=== PATIENT | female | born 1950 | race Caucasian/White ===

== ENCOUNTER 2019-08-13 21:21 | Inpatient (IN) | payer MEDICARE ==
--- NOTE | 2019-08-13 21:44 | ED ---
SOB HPI - General Chief Complaint: Shortness of Breath Stated Complaint: pneumonia Time Seen by Provider: 08/13/19 21:23 Source: patient, EMS, RN notes reviewed, old records reviewed Mode of arrival: EMS Limitations: no limitations - History of Present Illness Initial Comments: This is a 69 female to the ED c/o cough SOB and accepted in transfer for contreras luation regarding cough or congestion shortness of breath. Patient is found to have pneumonia is accepted in transfer. Patient states she feels improved is hungry and thirsty currently. No chest pain. No other complaints no neurological complaints MD Complaint: shortness of breath, cough Severity: mild Severity scale (1-10): 3 Quality: dull Consistency: constant Improves With: rest Worsens With: exertion Known History Of: COPD, congestive heart failure Context: recent URI Associated Symptoms: fever, cough Treatments Prior to Arrival: none - Related Data Home Medications Medication Instructions Recorded Confirmed Aspirin 81 mg PO DAILY 04/13/15 04/14/15 Atenolol [Tenormin] 25 mg PO BID 04/13/15 04/14/15 glipiZIDE [Glucotrol] 10 mg PO AC-BID 04/13/15 04/14/15 FLUoxetine HCL [PROzac] 20 mg PO DAILY 04/14/15 04/14/15 metFORMIN HCL 1,000 mg PO BID 04/14/15 04/14/15 Previous Rx's Medication Instructions Recorded Cefuroxime Axetil [Ceftin] 250 mg PO BID #14 tablet 04/15/15 Allergies Allergy/AdvReac Type Severity Reaction Status Date / Time Sulfa (Sulfonamide Allergy Rash/Hives Verified 04/14/15 10:09 Antibiotics) Review of Systems ROS Statement: Those systems with pertinent positive or pertinent negative responses have been documented in the HPI. ROS Other: All systems not noted in ROS Statement are negative. Past Medical History Past Medical History: Atrial Fibrillation, CVA/TIA, Hyperlipidemia, Hypertension, Pneumonia, Renal Disease Additional Past Medical History / Comment(s): vaginal dyslagia,carotid artery blockage History of Any Multi-Drug Resistant Organisms: None Reported Past Surgical History: Section, Cholecystectomy, Tonsillectomy, Uterine Ablation Additional Past Surgical History / Comment(s): carotid surgery, oopharectomy Past Anesthesia/Blood Transfusion Reactions: No Reported Reaction Past Psychological History: Anxiety Smoking Status: Former smoker Past Alcohol Use History: None Reported Past Drug Use History: None Reported - Past Family History Father History Unknown: Yes General Exam Limitations: no limitations General appearance: alert, in no apparent distress Head exam: Present: atraumatic, normocephalic, normal inspection Eye exam: Present: normal appearance, PERRL, EOMI. Absent: scleral icterus, conjunctival injection, periorbital swelling ENT exam: Present: normal exam, mucous membranes dry, other (Hoarse voice) Neck exam: Present: normal inspection. Absent: tenderness, meningismus, lymphadenopathy Respiratory exam: Present: wheezes, decreased breath sounds, prolonged expiratory. Absent: respiratory distress, rales, rhonchi, stridor Cardiovascular Exam: Present: regular rate, normal rhythm, normal heart sounds. Absent: systolic murmur, diastolic murmur, rubs, gallop, clicks GI/Abdominal exam: Present: soft, normal bowel sounds. Absent: distended, tenderness, guarding, rebound, rigid Extremities exam: Present: normal inspection, full ROM, normal capillary refill. Absent: tenderness, pedal edema, joint swelling, calf tenderness Back exam: Present: normal inspection Neurological exam: Present: alert, oriented X3, CN II-XII intact Psychiatric exam: Present: normal affect, normal mood Skin exam: Present: warm, dry, intact, normal color. Absent: rash Course Vital Signs 08/13/19 21:31 Temperature 98.6 F Pulse Rate 114 H Respiratory 22 Rate Blood Pressure 138/84 O2 Sat by Pulse 99 Oximetry - Reevaluation(s) Reevaluation #1: 08/13/19 22:22 Medical records including imaging is reviewed Reevaluation #2: 08/13/19 22:22 Patient feeling improved here in the ER asking the nursing - Consultations Consultation #1: Spoke with sound were okay for admission Medical Decision Making - Medical Decision Making 69-year-old female DF for evaluation patient presents today for evaluation of shortness with cough congestion positive for pneumonia. Patient will be admitted for IV antibiotics and breathing treatments Disposition Clinical Impression: Community acquired pneumonia, Atrial fibrillation with RVR Disposition: ADMITTED IP TO THIS HOSP Condition: Good Is patient prescribed a controlled substance at d/c from ED?: No Referrals: Sekou Apoadca DO [Primary Care Provider] - 1-2 days
[2019-08-13] MEDS ORDERED: PNEUMONIA PROTOCOL UTILIZED 1 EACH MISC PO PRN (22:10)
[2019-08-13] MEDS ORDERED: HEPARIN SODIUM,PORCINE 5,000 UNIT/ML 1 ML VIAL IV PRN (22:10)
[2019-08-13] MEDS ORDERED: HEPARIN SOD,PORK IN 0.45% NACL 25,000 UNIT in 0.45% NACL 1 250ML.BAG IV SCH (22:15)
[2019-08-13] MEDS ORDERED: DEXAMETHASONE SOD PHOSPHATE 10 MG/ML 1 ML VIAL IV STA (22:18)
[2019-08-13] MEDS ORDERED: IPRATROPIUM-ALBUTEROL 3 ML NEB INHALATION STA (22:18)
[2019-08-13] MEDS: SODIUM CHLORIDE 0.9% 1,000 ML IV SCH (22:47)
[2019-08-14] MEDS ORDERED: IPRATROPIUM-ALBUTEROL 3 ML NEB INHALATION SCH
[2019-08-14] MEDS ORDERED: methylPREDNISolone SOD SUCCI 125 MG/2 ML VIAL IV SCH
[2019-08-14 00:38] LABS: Glucose,Whole Blood 394 mg/dL (75-99)
--- NOTE | 2019-08-14 00:51 | P.HPIM ---
History of Present Illness H&P Date: 08/13/19 Patient is a 69-year-old female with a PMH of type II DM, hx of CVA/TIA (s/p carotid endarterectomy x 1 on the L and x 2 on the R), possible history of atrial fibrillation (not on AC, patient unaware), HTN, and HLD presented to [facility] earlier today for persistent nonproductive cough, sore throat, and shortness of breath. The patient reports that for the past 2 months, she has had persistent URI like symptoms for which she was seen by her PMD multiple times and had completed a previous course of antibiotics orally. She reports that she initially had seen some improvement but then roughly a week ago, her symptoms returned with sinus congestion and non-productive cough. She then developed a sore throat a few days ago which gradually worsened and she then lost her voice. The patient reports history of smoking in the past but that she quit several years ago. She endorsed mild pleuritic chest pain with excessive coughing. Denied lower extremity swelling or pain. Denied fevers, chills, nausea, vomiting, abdominal pain, or diarrhea. The patient had undergone a CT soft tissue neck at [facility] which revealed a right upper lobe pneumonia along with a complete occlusion of the right internal carotid artery. The patient however denied weakness, numbness, tingling, visual disturbances, facial droop, slurred speech, or gait impairement. She underwent an extensive evaluation with an EKG showing normal sinus rhythm at 84 bpm, laboratory evaluation showing influenza negative, rapid strep negative, magnesium 0.7, potassium 3.4, sodium 141, BUN 20, creatinine 1.04, WBC count 7.7, hemoglobin 12.6, and platelets of 399. The patient was transferred to [facility] for further management. Review of Systems Pertinent positives and negatives as discussed in HPI, a complete review of systems was performed and all other systems are negative. Past Medical History Past Medical History: Atrial Fibrillation, CVA/TIA, Hyperlipidemia, Hypertension, Pneumonia, Renal Disease Additional Past Medical History / Comment(s): vaginal dyslagia,carotid artery blockage History of Any Multi-Drug Resistant Organisms: None Reported Past Surgical History: Section, Cholecystectomy, Tonsillectomy, Uterine Ablation Additional Past Surgical History / Comment(s): carotid surgery, oopharectomy Past Anesthesia/Blood Transfusion Reactions: No Reported Reaction Past Psychological History: Anxiety Smoking Status: Former smoker Past Alcohol Use History: None Reported Past Drug Use History: None Reported - Past Family History Father History Unknown: Yes Medications and Allergies Home Medications Medication Instructions Recorded Confirmed Type Aspirin 81 mg PO DAILY 04/13/15 08/13/19 History Atenolol [Tenormin] 25 mg PO BID 04/13/15 08/13/19 History metFORMIN HCL 1,000 mg PO BID 04/14/15 08/13/19 History Insulin (Unknown Dose) 10 - 15 units SQ AC-TID 08/13/19 08/13/19 History Insulin Detemir (Levemir) [Levemir] 30 - 35 unit SQ BID PRN 08/13/19 08/13/19 History Allergies Allergy/AdvReac Type Severity Reaction Status Date / Time Sulfa (Sulfonamide Allergy Rash/Hives Verified 04/14/15 10:09 Antibiotics) Physical Exam Vitals: Vital Signs Temp Pulse Resp BP Pulse Ox 08/13/19 22:55 107 H 24 162/72 96 08/13/19 22:40 111 H 08/13/19 22:27 112 H 08/13/19 21:31 98.6 F 114 H 22 138/84 99 Intake and Output 08/13/19 08/13/19 08/14/19 14:59 22:59 06:59 Other: Weight 72.575 kg General: ill appearing, in mild distress, appears at stated age, overweight Derm: no unusual rashes/lesions no unusual ecchymoses, warm, dry Head: atraumatic, normocephalic, symmetric Eyes: EOMI, no lid lag, anicteric sclera, pupils equal round reactive to light ENT: Nose and ears atraumatic, no thrush, no pharyngeal erythema, no tonsillar exudates, nasal congestion with clear discharge noted Neck: No thyromegaly, no cervical lymphadenopathy, trachea midline, supple Mouth: no lip lesion, mucus membranes moist Cardiovascular: S1S2 reg, tachycardic, no murmur, positive posterior tibial pulse bilateral, no edema, capillary refill less than 2 seconds Lungs: CTA bilateral, no rhonchi, no rales , no accessory muscle use Abdominal: soft, nontender to palpation, no guarding, no appreciable organomegaly, normal bowel sounds Ext: no gross muscle atrophy, muscle strength 5 out of 5 in all 4 extremities grossly, no contractures, Neuro: CN II-XI grossly intact, light touch intact all 4 extremities, finger to nose within normal limits Psych: Alert, oriented, appropriate affect Assessment and Plan Plan: Sepsis secondary to community acquired pneumonia -C/w Azithromycin and Ceftriaxone -Check Lactate level -C/w Duonebs prn. Hold Solu-medrol for now -IVFs -F/u blood cultures R Carotid artery thrombosis with complete occlusion -Patient with no clinical signs or symptoms of CVA -C/w Heparin infusion for now -Reports has undergone multiple endarterectomies in the past -Vascular surgery consult -Neurochecks q4h Enlarged LN at angle of left mandible on CT scan -Suspicious for malignancy with patient's history of smoking -Surgery consult for likely excisional biopsy Hypomagnasemia -Mg 0.7 at [facility] -Given 1 g with repeat ordered -Unclear if patient was supplemented at [facility] Type 2 DM -JAZMÍN with FS -Levemir 10 U qhs Questionable history of Afib -Patient reports never being on a blood thinner in the past -Contact PMD in am to obtain more information -No documented EKG with Afib -C/w ASA home med DVT prophylaxis -Heparin infusion The patient is admitted with an anticipated greater than 2 midnight stay for evaluation of sepsis from PNA CODE STATUS: Full Code Discussed with: Patient Anticipated discharge date: 3-[address]: Home A total of 50 minutes was spent on the care of this complex patient more than 50% of the time was spent in counseling and care coordination.
[2019-08-14] MEDS ORDERED: INSULIN DETEMIR (LEVEMIR) 100 UNIT/ML SYR SQ SCH ×2 (01:00→21:00)
[2019-08-14] MEDS ORDERED: MAGNESIUM SULFATE-D5W PMX 1 GM in DEXTROSE/WATER 1 100ML.BAG IVPB ONE (01:30)
[2019-08-14 01:47] LABS: Partial Thromboplastin Time 46.4 sec (22.0-30.0); Prothrombin Time 10.4 sec (9.0-12.0)
[2019-08-14] MEDS: INSULIN ASPART (NovoLOG) 100 UNIT/ML VIAL SQ SCH ×4 (01:51→17:01)
[2019-08-14] MEDS: MAGNESIUM SULFATE-D5W PMX 1 GM in DEXTROSE/WATER 1 100ML.BAG IVPB ONE ×2 (02:13→02:15)
[2019-08-14 05:46] LABS: Basophils % (A) 0 %; Eosinophils % (A) 1 %; HCT 32.5 % (34.0-46.0); HGB 10.1 gm/dL (11.4-16.0); Hypochromasia Slight; Lymphocytes # (A) 0.7 k/uL (1.0-4.8); Lymphocytes % (A) 11 %; MCH 30.3 pg (25.0-35.0); MCV 97.9 fL (80.0-100.0); Mean Platelet Volume 7.3; Monocytes # (A) 0.1 k/uL (0-1.0); Monocytes % (A) 2 %; Neutrophils # (A) 5.4 k/uL (1.3-7.7); Neutrophils % (A) 87 %; Platelet Count 361 k/uL (150-450); RBC 3.32 m/uL (3.80-5.40); RDW 14.4 % (11.5-15.5); WBC 6.2 k/uL (3.8-10.6)
[2019-08-14 07:03] LABS: Glucose,Whole Blood 383 mg/dL (75-99)
[2019-08-14] MEDS ORDERED: SODIUM CHLORIDE 0.9% 1,000 ML IV ONE ×2 (07:04→11:00)
[2019-08-14] MEDS: IPRATROPIUM-ALBUTEROL 3 ML NEB INHALATION PRN ×3 (07:05→15:32)
[2019-08-14] MEDS: SODIUM CHLORIDE 0.9% 1,000 ML IV SCH ×2 (08:05→17:06)
[2019-08-14] MEDS: ATENOLOL 25 MG TAB PO SCH ×2 (08:07→22:00)
[2019-08-14] MEDS: ASPIRIN 81 MG PO SCH (08:07)
[2019-08-14] MEDS: AZITHROMYCIN 500 MG in SODIUM CHLORIDE 0.9% 250 ML IVPB SCH (08:13)
[2019-08-14 08:22] LABS: Albumin 3.4 g/dL (3.5-5.0); Potassium 4.8 mmol/L (3.5-5.1); Total Bilirubin 0.3 mg/dL (0.2-1.3); Total Protein 6.5 g/dL (6.3-8.2)
--- NOTE | 2019-08-14 08:53 | XR ---
EXAMINATION TYPE: XR chest 2V DATE OF EXAM: 08/14/2019 HISTORY: pneumonia. REFERENCE: Previous study dated 08/13/2019. FINDINGS: There is a continuing opacity in the midportion of the right lung. Left lung is clear. Hear t size is upper limits of normal. There is mild vascular congestion and subtle interstitial change. IMPRESSION: 1. CONTINUING OPACITY IN THE RIGHT MIDLUNG COMPATIBLE WITH PNEUMONIA. 2. WORSENING CHANGES OF CONGESTIVE HEART FAILURE.
[2019-08-14] MEDS ORDERED: HEPARIN SODIUM,PORCINE 5,000 UNIT/ML 1 ML VIAL IV PRN (11:29)
[2019-08-14] MEDS ORDERED: HEPARIN SOD,PORK IN 0.45% NACL 25,000 UNIT in 0.45% NACL 1 250ML.BAG IV SCH (11:30)
[2019-08-14 11:54] LABS: Glucose,Whole Blood 273 mg/dL (75-99)
[2019-08-14] MEDS ORDERED: INSULIN DETEMIR (LEVEMIR) 100 UNIT/ML SYR SQ ONE (12:00)
--- NOTE | 2019-08-14 13:03 | P.GSCN ---
History of Present Illness Consult date: 08/14/19 History of present illness: The patient is a 69-year-old female with a past medical history of atrial fibrillation, history of CVA/ TIA, COPD, CHF, hyperlipidemia, hypertension, pneumonia, renal disease, carotid artery blockage and subsequent ligation per reports on the right who presented to [facility] for pneumonia and worsening cough and shortness of breath. She denies any neurological symptoms at this point although she states a few weeks ago she did have some vision changes in her right eye that seemingly improved. She does not see a doctor lani quiroga she did not want to undergo any further surgical intervention if it became an issue. She states that many years ago she had bilateral carotid endarterectomies performed, subsequently she had continued TIA like symptoms and occlusion of her right side at which time her surgeon went back and reportedly ligated her internal carotid artery. She is not sure, years ago this was patient has not seen a vascular surgeon since. She's not had any follow-up ultrasounds or imaging. Review of Systems 14 point review of systems performed, pertinent positives and negatives per the HPI Past Medical History Past Medical History: Atrial Fibrillation, CVA/TIA, Hyperlipidemia, Hypertension, Pneumonia, Renal Disease Additional Past Medical History / Comment(s): vaginal dyslagia,carotid artery blockage History of Any Multi-Drug Resistant Organisms: None Reported Past Surgical History: Section, Cholecystectomy, Tonsillectomy, Uterine Ablation Additional Past Surgical History / Comment(s): carotid surgery, oopharectomy Past Anesthesia/Blood Transfusion Reactions: No Reported Reaction Past Psychological History: Anxiety Smoking Status: Former smoker Past Alcohol Use History: None Reported Past Drug Use History: None Reported - Past Family History Father History Unknown: Yes Medications and Allergies Home Medications Medication Instructions Recorded Confirmed Type Aspirin 81 mg PO DAILY 04/13/15 08/13/19 History Atenolol [Tenormin] 25 mg PO BID 04/13/15 08/13/19 History metFORMIN HCL 1,000 mg PO BID 04/14/15 08/13/19 History Insulin (Unknown Dose) 10 - 15 units SQ AC-TID 08/13/19 08/13/19 History Insulin Detemir (Levemir) [Levemir] 30 - 35 unit SQ BID PRN 08/13/19 08/13/19 History QUEtiapine [SEROquel] 25 mg PO HS 08/14/19 08/14/19 History Allergies Allergy/AdvReac Type Severity Reaction Status Date / Time Sulfa (Sulfonamide Allergy Rash/Hives Verified 04/14/15 10:09 Antibiotics) Surgical - Exam Vital Signs Temp Pulse Resp BP Pulse Ox 98.6 F 114 H 22 138/84 99 08/13/19 21:31 08/13/19 21:31 08/13/19 21:31 08/13/19 21:31 08/13/19 21:31 Genitals a pleasant cooperative female in no acute distress. HEENT is normal cephalic, atraumatic, excellent motion intact. Neck is supple. Trachea is midline. Surgical incisions noted. Heart is regular but tachycardic at this time. Lungs with coarse rhonchi bilaterally. She has productive cough. Abdomen is obese, nontender nondistended. Extremities without clubbing, cyanosis or edema. No neurologic deficits. Skin no rashes. Normal mood and affect Results CT report from [facility] is reviewed. It is a soft tissue scan with contrast in which they make comment about a right carotid artery thrombus - Labs 08/14/19 05:26 08/14/19 05:26 Abnormal Lab Results - Last 24 Hours (Table) 08/14/19 08/14/19 08/14/19 Range/Units 00:14 00:36 01:29 RBC (3.80-5.40) m/uL Hgb (11.4-16.0) gm/dL Hct (34.0-46.0) % Lymphocytes # (1.0-4.8) k/uL APTT 46.4 H (22.0-30.0) sec Chloride (98-107) mmol/L Carbon Dioxide (22-30) mmol/L BUN (7-17) mg/dL Creatinine (0.52-1.04) mg/dL Glucose (74-99) mg/dL POC Glucose (mg/dL) 394 H (75-99) mg/dL Plasma Lactic Acid Nick (0.7-2.0) mmol/L Calcium (8.4-10.2) mg/dL Magnesium 1.3 L (1.6-2.3) mg/dL Albumin (3.5-5.0) g/dL 08/14/19 08/14/19 08/14/19 Range/Units 05:26 05:26 05:26 RBC 3.32 L (3.80-5.40) m/uL Hgb 10.1 L (11.4-16.0) gm/dL Hct 32.5 L (34.0-46.0) % Lymphocytes # 0.7 L (1.0-4.8) k/uL APTT 42.4 H (22.0-30.0) sec Chloride (98-107) mmol/L Carbon Dioxide (22-30) mmol/L BUN (7-17) mg/dL Creatinine (0.52-1.04) mg/dL Glucose (74-99) mg/dL POC Glucose (mg/dL) (75-99) mg/dL Plasma Lactic Acid Nick 6.3 H* (0.7-2.0) mmol/L Calcium (8.4-10.2) mg/dL Magnesium (1.6-2.3) mg/dL Albumin (3.5-5.0) g/dL 08/14/19 08/14/19 08/14/19 Range/Units 05:26 07:02 09:31 RBC (3.80-5.40) m/uL Hgb (11.4-16.0) gm/dL Hct (34.0-46.0) % Lymphocytes # (1.0-4.8) k/uL APTT (22.0-30.0) sec Chloride 110 H (98-107) mmol/L Carbon Dioxide 12 L (22-30) mmol/L BUN 19 H (7-17) mg/dL Creatinine 1.10 H (0.52-1.04) mg/dL Glucose 456 H (74-99) mg/dL POC Glucose (mg/dL) 383 H (75-99) mg/dL Plasma Lactic Acid Nick 6.1 H* (0.7-2.0) mmol/L Calcium 8.0 L (8.4-10.2) mg/dL Magnesium (1.6-2.3) mg/dL Albumin 3.4 L (3.5-5.0) g/dL 08/14/19 Range/Units 11:52 RBC (3.80-5.40) m/uL Hgb (11.4-16.0) gm/dL Hct (34.0-46.0) % Lymphocytes # (1.0-4.8) k/uL APTT (22.0-30.0) sec Chloride (98-107) mmol/L Carbon Dioxide (22-30) mmol/L BUN (7-17) mg/dL Creatinine (0.52-1.04) mg/dL Glucose (74-99) mg/dL POC Glucose (mg/dL) 273 H (75-99) mg/dL Plasma Lactic Acid Nick (0.7-2.0) mmol/L Calcium (8.4-10.2) mg/dL Magnesium (1.6-2.3) mg/dL Albumin (3.5-5.0) g/dL Diabetes panel 08/14/19 Range/Units 05:26 Sodium 139 (137-145) mmol/L Potassium 4.8 (3.5-5.1) mmol/L Chloride 110 H (98-107) mmol/L Carbon Dioxide 12 L (22-30) mmol/L BUN 19 H (7-17) mg/dL Creatinine 1.10 H (0.52-1.04) mg/dL Glucose 456 H (74-99) mg/dL Calcium 8.0 L (8.4-10.2) mg/dL AST 23 (14-36) U/L ALT 17 (4-34) U/L Alkaline Phosphatase 86 (38-126) U/L Total Protein 6.5 (6.3-8.2) g/dL Albumin 3.4 L (3.5-5.0) g/dL Calcium panel 08/14/19 Range/Units 05:26 Calcium 8.0 L (8.4-10.2) mg/dL Albumin 3.4 L (3.5-5.0) g/dL Pituitary panel 08/14/19 Range/Units 05:26 Sodium 139 (137-145) mmol/L Potassium 4.8 (3.5-5.1) mmol/L Chloride 110 H (98-107) mmol/L Carbon Dioxide 12 L (22-30) mmol/L BUN 19 H (7-17) mg/dL Creatinine 1.10 H (0.52-1.04) mg/dL Glucose 456 H (74-99) mg/dL Calcium 8.0 L (8.4-10.2) mg/dL Adrenal panel 08/14/19 Range/Units 05:26 Sodium 139 (137-145) mmol/L Potassium 4.8 (3.5-5.1) mmol/L Chloride 110 H (98-107) mmol/L Carbon Dioxide 12 L (22-30) mmol/L BUN 19 H (7-17) mg/dL Creatinine 1.10 H (0.52-1.04) mg/dL Glucose 456 H (74-99) mg/dL Calcium 8.0 L (8.4-10.2) mg/dL Total Bilirubin 0.3 (0.2-1.3) mg/dL AST 23 (14-36) U/L ALT 17 (4-34) U/L Alkaline Phosphatase 86 (38-126) U/L Total Protein 6.5 (6.3-8.2) g/dL Albumin 3.4 L (3.5-5.0) g/dL Assessment and Plan Assessment: #1 occluded right internal carotid artery, chronic, surgically induced by reports #2 reported 40-50% stenosis of her left internal carotid artery #3 productive cough, pneumonia #4 history of CVA/TIA #5 COPD #6 CHF Plan: At this point we will obtain a ultrasound of the neck as a new baseline for this patient. She may be stopped on heparin drip as there is no indication at this time for it given her chronic occlusion of her internal carotid artery. I will try to obtain old reports from her previous surgeon as far as what was performed, she may follow up with me in the office in a few weeks to resume her vascular care. Given these findings and, at times some vision changes, I would recommend she be on aspirin and Plavix along with statin going forward
[2019-08-14 15:44] LABS: HCT 32.8 % (34.0-46.0); HGB 10.1 gm/dL (11.4-16.0); Hypochromasia Moderate; MCH 30.4 pg (25.0-35.0); MCHC 30.8 g/dL (31.0-37.0); Mean Platelet Volume 7.6; Platelet Count 398 k/uL (150-450); RBC 3.31 m/uL (3.80-5.40); RDW 14.5 % (11.5-15.5); WBC 7.6 k/uL (3.8-10.6)
[2019-08-14 15:52] LABS: Albumin 3.8 g/dL (3.5-5.0); Calcium 7.9 mg/dL (8.4-10.2); Potassium 4.6 mmol/L (3.5-5.1); Total Bilirubin 0.4 mg/dL (0.2-1.3); Total Protein 6.8 g/dL (6.3-8.2)
--- NOTE | 2019-08-14 15:54 | P.PN ---
Subjective Progress Note Date: 08/14/19 (delayed charting seen at 1040) Principal diagnosis: shortness of breath Patient is a 69 yo CF with known carotid stenosis with hx of CEA on the R X2 and L X 2, Prior CVA and TIA, DM 2 insulin requiring and well controlled, and HLD who initially presented to [facility] with complaints of cough, sore throat and shortness of breath X 2 months. She underwent an extensive evaluation at [facility]. Due to her loss of voice and sore throat she underwent a CT soft tissue of the neck which showed a right upper lobe pneumonia, complete occlusion of the right internal carotid artery with suspected thrombus, and enlargement of the left submandibular lymph node. Rapid strep and influenza were negative. EKG was unremarkable. She was started on IV fluids, antibiotics, and hepearin gtt due to possible clot. Arrangements were made for transfer here for further evaluation. On arrival in the ER she was found to be tachycardic and EKG showed normal sinus rhythm. Lactic acid was drawn which was significantly elevated. Her magnesium level was low every [facility] and she was given 1 g of magnesium and repeat magnesium was normalized. Chest x-ray here confirmed PNA in the right middle lobe. She states that she has been ill since [place] when her grandchildren came over and had bronchitis. She did she her PCP and was given an antibiotic that didn't help. She reports that she has had lack of appetitie and a 14 lb weight loss. She denies any hx of liver problems. Patient seen and examined at bedside with daughter present. She still is not feeling well. She continues to sore throat, having some pain on swallowing, complains of shortness of breath and continued coughing. Objective - Vital Signs Vital signs: Vital Signs Temp 98.2 F 08/14/19 14:10 Pulse 94 08/14/19 14:10 Resp 16 08/14/19 14:10 BP 121/62 08/14/19 14:10 Pulse Ox 94 L 08/14/19 14:10 Intake & Output 08/13/19 08/14/19 08/14/19 18:59 06:59 18:59 Intake Total 27.869 3691.27 Balance 27.869 3691.27 Weight 72.575 kg Intake: IV 3098 Azithromycin 500 mg In 250 Sodium Chloride 0.9% 250 ml @ 250 mls/hr IVPB DAILY [facility] Rx#:[id number] Sodium Chloride 0.9% 1, 800 000 ml @ 100 mls/hr IV . Q10H [facility] Rx#:[id number] Sodium Chloride 0.9% 1, 999 000 ml @ 999 mls/hr IV . Q1H1M [facility] Rx#:[id number] Sodium Chloride 0.9% 1, 999 000 ml @ 999 mls/hr IV . Q1H1M [facility] Rx#:[id number] cefTRIAXone 1 gm In 50 Sodium Chloride 0.9% 50 ml @ 100 mls/hr IVPB HS [facility] Rx#:[id number] Intake, IV Titration 27.869 53.27 Amount Heparin Sod,Pork in 0.45% 27.869 53.27 NaCl 25,000 unit In 0.45 % NaCl 1 250ml.bag @ 12 UNITS/KG/HR 8.709 mls/hr IV .Q24H [facility] Rx#: [id number] Oral 540 Other: Voiding Method Toilet # Voids 4 3 - Exam General: Ill appearing, no distress, appears at stated age Derm: warm, dry Head: atraumatic, normocephalic, symmetric Eyes: EOMI, no lid lag, anicteric sclera Mouth: no lip lesion, mucus membranes dry, no thrush Cardiovascular: S1S2 tachycardic, 2+ systolic ejection murmur, positive posterior tibial pulse bilateral, Lungs: Coarse breath sounds bilateral 2 word conversational dyspnea Abdominal: soft, nontender to palpation, no guarding, no appreciable organomegaly Ext: no gross muscle atrophy, no edema, no contractures Neuro: CN II-XI grossly intact, no focal neuro deficits Psych: Alert, oriented, anxious - Labs CBC & Chem 7: 08/14/19 15:06 08/14/19 05:26 Labs: Abnormal Lab Results - Last 24 Hours (Table) 08/14/19 08/14/19 08/14/19 Range/Units 00:14 00:36 01:29 RBC (3.80-5.40) m/uL Hgb (11.4-16.0) gm/dL Hct (34.0-46.0) % Lymphocytes # (1.0-4.8) k/uL APTT 46.4 H (22.0-30.0) sec Chloride (98-107) mmol/L Carbon Dioxide (22-30) mmol/L BUN (7-17) mg/dL Creatinine (0.52-1.04) mg/dL Glucose (74-99) mg/dL POC Glucose (mg/dL) 394 H (75-99) mg/dL Plasma Lactic Acid Nick (0.7-2.0) mmol/L Calcium (8.4-10.2) mg/dL Magnesium 1.3 L (1.6-2.3) mg/dL Albumin (3.5-5.0) g/dL 08/14/19 08/14/19 08/14/19 Range/Units 05:26 05:26 05:26 RBC 3.32 L (3.80-5.40) m/uL Hgb 10.1 L (11.4-16.0) gm/dL Hct 32.5 L (34.0-46.0) % Lymphocytes # 0.7 L (1.0-4.8) k/uL APTT 42.4 H (22.0-30.0) sec Chloride (98-107) mmol/L Carbon Dioxide (22-30) mmol/L BUN (7-17) mg/dL Creatinine (0.52-1.04) mg/dL Glucose (74-99) mg/dL POC Glucose (mg/dL) (75-99) mg/dL Plasma Lactic Acid Nick 6.3 H* (0.7-2.0) mmol/L Calcium (8.4-10.2) mg/dL Magnesium (1.6-2.3) mg/dL Albumin (3.5-5.0) g/dL 08/14/19 08/14/19 08/14/19 Range/Units 05:26 07:02 09:31 RBC (3.80-5.40) m/uL Hgb (11.4-16.0) gm/dL Hct (34.0-46.0) % Lymphocytes # (1.0-4.8) k/uL APTT (22.0-30.0) sec Chloride 110 H (98-107) mmol/L Carbon Dioxide 12 L (22-30) mmol/L BUN 19 H (7-17) mg/dL Creatinine 1.10 H (0.52-1.04) mg/dL Glucose 456 H (74-99) mg/dL POC Glucose (mg/dL) 383 H (75-99) mg/dL Plasma Lactic Acid Nick 6.1 H* (0.7-2.0) mmol/L Calcium 8.0 L (8.4-10.2) mg/dL Magnesium (1.6-2.3) mg/dL Albumin 3.4 L (3.5-5.0) g/dL 08/14/19 Range/Units 11:52 RBC (3.80-5.40) m/uL Hgb (11.4-16.0) gm/dL Hct (34.0-46.0) % Lymphocytes # (1.0-4.8) k/uL APTT (22.0-30.0) sec Chloride (98-107) mmol/L Carbon Dioxide (22-30) mmol/L BUN (7-17) mg/dL Creatinine (0.52-1.04) mg/dL Glucose (74-99) mg/dL POC Glucose (mg/dL) 273 H (75-99) mg/dL Plasma Lactic Acid Nick (0.7-2.0) mmol/L Calcium (8.4-10.2) mg/dL Magnesium (1.6-2.3) mg/dL Albumin (3.5-5.0) g/dL Assessment and Plan Assessment: Right middle lobe pneumonia with lactic acidosis -Continue with Rocephin, Zithromax -IV fluids -Await repeat lactic acid -broncho dilators - sputum and blood cultures pending - Consider CT chest due to duration of symptoms and weight loss - follow CXR until clear - pulm hygiene 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 We'll give Levemir 10 units 1 now and 25 units this evening -Sliding-scale insulin -Await hemoglobin A1c - off metformin Enlarged left submandibular lymphnode - consult ENT CKD III - at baseline - follow Cr - avoid additional nephrotoxic agents Hypertension, controlled - Atenolol - follow BP Depression with insomnia - resume seroquel A fib ruled out currently in sinus DVT prophylaxis: heparin gtt Discussed with: Patient, daughter, nursing, Dr. Gregg Anticipated discharge: 4-[address]: home A total of 45 minutes was spent on the care of this complex patient more than 50% of the time was spent in counseling and care coordination.
[2019-08-14] MEDS ORDERED: FUROSEMIDE 10 MG/ML 4 ML VIAL IV STA (16:36)
[2019-08-14 16:45] LABS: Glucose,Whole Blood 250 mg/dL (75-99)
[2019-08-14] MEDS: BENZONATATE 100 MG CAP PO PRN (17:03)
[2019-08-14 20:27] LABS: Glucose,Whole Blood 239 mg/dL (75-99)
--- NOTE | 2019-08-14 21:40 | US ---
EXAMINATION TYPE: US carotid duplex BILAT DATE OF EXAM: 08/14/2019 COMPARISON: NONE CLINICAL HISTORY: 69-year-old female occlusion. Patient states she has had bilateral endarterectomies , and that the right side is occluded. TECHNIQUE: Carotid duplex ultrasound examination. However Doppler criteria is utilized. FINDINGS: EXAM MEASUREMENTS: RIGHT: Peak Systolic Velocity (PSV) cm/sec ----- Right CCA: 63.1 ----- Right ICA: -- ----- Right ECA: 122 ICA/CCA ratio: -- RIGHT: End Diastole cm/sec ----- Right CCA: 2.5 ----- Right ICA: -- ----- Right ECA: 0.0 LEFT: Peak Systolic Velocity (PSV) cm/sec ----- Left CCA: 224 ----- Left ICA: 129 ----- Left ECA: 277 ICA/CCA ratio: 0.57 LEFT: End Diastole cm/sec ----- Left CCA: 33.7 ----- Left ICA: 19.2 ----- Left ECA: 0.0 VERTEBRALS (direction of flow): Right Vertebral: Antegrade Left Vertebral: Antegrade Cuff Turner Machine Operator notes: Large thick neck with high bifurcations. Technically difficult study. Right ICA appears to be occluded. High velocities in left CCA with possible soft plaque. Left ICA lai s not show velocity increase. IMPRESSION: 1. Right ICA occlusion. 2. Elevated velocities in the left common carotid artery could be secondary to increased flow or a mo derate proximal stenosis. Further evaluation as clinically indicated. 3. Patent left internal carotid artery. Criteria for Assigning % of Stenosis / Diameter reduction (Estimation based on the indirect measurements of the internal carotid artery velocities (ICA PSV). 1. Normal (no stenosis)=ICA PSV < 125 cm/s: ratio < 2.0: ICA EDV<40 cm/s. 2. Less than 50% stenosis=ICA PSV < 125 cm/s: ratio < 2.0: ICA EDV<40 cm/s. 3. 50 to 69% stenosis=ICA PSV of 125 to 230 cm/s: ration 2.0 ? 4.0: ICA EDV 40-100 cm/s. 4. Greater than 70% stenosis to near occlusion= ICA PSV > 230 cm/s: ratio > 4.0: ICA EDV > 100 cm/s. 5. Near occlusion= ICA PSV velocities may be low or undetectable: variable ratio and ICA EDV. 6. Total occlusion=unable to detect flow.
[2019-08-14] MEDS: QUEtiapine 25 MG TAB PO SCH (22:00)
[2019-08-15 04:46] LABS: Basophils % (A) 0 %; Eosinophils # (A) 0.1 k/uL (0-0.7); Eosinophils % (A) 2 %; HCT 33.4 % (34.0-46.0); Hypochromasia Slight; Lymphocytes # (A) 1.8 k/uL (1.0-4.8); Lymphocytes % (A) 21 %; MCH 31.9 pg (25.0-35.0); MCHC 32.9 g/dL (31.0-37.0); Monocytes # (A) 0.4 k/uL (0-1.0); Monocytes % (A) 5 %; Neutrophils # (A) 6.5 k/uL (1.3-7.7); Neutrophils % (A) 72 %; Platelet Count 372 k/uL (150-450); RBC 3.44 m/uL (3.80-5.40); RDW 14.7 % (11.5-15.5)
[2019-08-15 04:48] LABS: Albumin 3.3 g/dL (3.5-5.0); Calcium 7.9 mg/dL (8.4-10.2); Magnesium 1.4 mg/dL (1.6-2.3); Phosphorus 2.8 mg/dL (2.5-4.5); Potassium 3.9 mmol/L (3.5-5.1); Total Bilirubin 0.3 mg/dL (0.2-1.3); Total Protein 6.4 g/dL (6.3-8.2)
[2019-08-15] MEDS: BENZONATATE 100 MG CAP PO PRN ×2 (05:30→19:11)
[2019-08-15] MEDS: SODIUM CHLORIDE 0.9% 1,000 ML IV SCH ×2 (06:16→13:14)
[2019-08-15 06:53] LABS: Glucose,Whole Blood 83 mg/dL (75-99)
[2019-08-15] MEDS: INSULIN ASPART (NovoLOG) 100 UNIT/ML VIAL SQ SCH ×3 (07:07→17:30)
--- NOTE | 2019-08-15 07:23 | XR ---
EXAMINATION TYPE: XR chest 2V DATE OF EXAM: 08/15/2019 HISTORY: pneumonia. REFERENCE: Previous study dated 08/14/2019. FINDINGS: The lungs are overinflated. There is a continuing opacity in the right midlung. The heart i s mildly enlarged. I suspect small, bilateral effusions. There continues be some vascular congestion and mild interstitial change which may represent mild heart failure. IMPRESSION: NO SIGNIFICANT INTERVAL CHANGE IN APPEARANCE OF THE CHEST.
[2019-08-15] MEDS: AZITHROMYCIN 500 MG in SODIUM CHLORIDE 0.9% 250 ML IVPB SCH (08:43)
[2019-08-15] MEDS: ATENOLOL 25 MG TAB PO SCH ×2 (08:44→21:24)
[2019-08-15] MEDS: ASPIRIN 81 MG PO SCH (08:44)
[2019-08-15] MEDS: CLOPIDOGREL 75 MG TAB PO SCH (08:44)
[2019-08-15] MEDS: IPRATROPIUM-ALBUTEROL 3 ML NEB INHALATION PRN ×2 (11:15→21:15)
[2019-08-15 11:35] LABS: Glucose,Whole Blood 118 mg/dL (75-99)
[2019-08-15] MEDS ORDERED: MELATONIN 5 MG TABLET PO PRN (14:40)
--- NOTE | 2019-08-15 14:42 | P.PN ---
Subjective Progress Note Date: 08/15/19 Principal diagnosis: shortness of breath Patient is a 69 yo CF with known carotid stenosis with hx of CEA on the R X2 and L X 2, Prior CVA and TIA, DM 2 insulin requiring and well controlled, and HLD who initially presented to [facility] with complaints of cough, sor e throat and shortness of breath X 2 months. She underwent an extensive evaluation at [facility]. Due to her loss of voice and sore throat she underwent a CT soft tissue of the neck which showed a right upper lobe pneumonia, complete occlusion of the right internal carotid artery with suspecte d thrombus, and enlargement of the left submandibular lymph node. Rapid strep and influenza were negative. EKG was unremarkable. She was started on IV fluids, antibiotics, and hepearin gtt due to possible clot. Arrangements were made for transfer here for further evaluation. On arrival in the ER she was found to be tachycardic and EKG showed normal sinus rhythm. Lactic acid was drawn which was significantly elevated. Her magnesium level was low at [facility] and she was given 1 g of magnesium and repeat magnesium was normalized. Chest x-ray here confirmed PNA in the right middle lobe. She was seen by vascular surgery and this was determined to be a chronic occlusion after carotid dopller confirmed complete occlusion. She will follow-up with vascular surgery in the outpatient setting. ENT felt that her enlarged submandibular lymphnode would be best worked up in the outpatient setting. She did not have significant improve in her symptoms by the morning of 08/15 despite treatment with duonebs, rocephin, and zithromax. Patient seen and examined at bedside. Reports that she still feels "terrible". Unable to quantify further. Upset that her blood sugar was 83 this morning she states this is too low for her and her typical sugars run 260s. She is unable to tell me why they keeping her sugars that to 60 but states they are adjusting medications. She is frustrated that her voice has not yet returned. She does state she is still coughing. No complaints of shortness of breath. We discussed that her recovery will likely be one of multiple weeks as she has been sick for a while so will take her a long time to recover. Objective - Vital Signs Vital signs: Vital Signs Temp 99.2 F 08/15/19 04:56 Pulse 100 08/15/19 11:26 Resp 20 08/15/19 04:58 BP 126/68 08/15/19 04:56 Pulse Ox 95 08/15/19 04:58 Intake & Output 08/14/19 08/15/19 08/15/19 18:59 06:59 18:59 Intake Total 3931.27 800 Balance 3931.27 800 Intake: IV 3098 800 Azithromycin 500 mg In 250 Sodium Chloride 0.9% 250 ml @ 250 mls/hr IVPB DAILY [facility] Rx#:[id number] Sodium Chloride 0.9% 1, 800 800 000 ml @ 100 mls/hr IV . Q10H [facility] Rx#:[id number] Sodium Chloride 0.9% 1, 999 000 ml @ 999 mls/hr IV . Q1H1M [facility] Rx#:[id number] Sodium Chloride 0.9% 1, 999 000 ml @ 999 mls/hr IV . Q1H1M [facility] Rx#:[id number] cefTRIAXone 1 gm In 50 Sodium Chloride 0.9% 50 ml @ 100 mls/hr IVPB HS [facility] Rx#:[id number] Intake, IV Titration 53.27 Amount Heparin Sod,Pork in 0.45% 53.27 NaCl 25,000 unit In 0.45 % NaCl 1 250ml.bag @ 12 UNITS/KG/HR 8.709 mls/hr IV .Q24H [facility] Rx#: [id number] Oral 780 Other: Voiding Method Toilet # Voids 3 4 - Exam General: Ill appearing, no distress, appears at stated age Derm: warm, dry Head: atraumatic, normocephalic, symmetric Eyes: EOMI, no lid lag, anicteric sclera Mouth: no lip lesion, mucus membranes dry, no thrush Cardiovascular: S1S2 tachycardic, 2+ systolic ejection murmur, positive posterior tibial pulse bilateral, Lungs: Coarse breath sounds bilateral 2 word conversational dyspnea Abdominal: soft, nontender to palpation, no guarding, no appreciable organomegaly Ext: no gross muscle atrophy, no edema, no contractures Neuro: CN II-XI grossly intact, no focal neuro deficits Psych: Alert, oriented, appropriate affect - Labs CBC & Chem 7: 08/15/19 04:00 08/15/19 04:00 Labs: Abnormal Lab Results - Last 24 Hours (Table) 08/14/19 08/14/19 08/14/19 Range/Units 15:06 15:06 15:06 RBC 3.31 L (3.80-5.40) m/uL Hgb 10.1 L (11.4-16.0) gm/dL Hct 32.8 L (34.0-46.0) % MCHC 30.8 L (31.0-37.0) g/dL APTT 52.0 H (22.0-30.0) sec Chloride 113 H (98-107) mmol/L Carbon Dioxide 15 L (22-30) mmol/L BUN 20 H (7-17) mg/dL Creatinine 1.07 H (0.52-1.04) mg/dL Glucose 292 H (74-99) mg/dL POC Glucose (mg/dL) (75-99) mg/dL Plasma Lactic Acid Nick (0.7-2.0) mmol/L Calcium 7.9 L (8.4-10.2) mg/dL Magnesium (1.6-2.3) mg/dL Albumin (3.5-5.0) g/dL Triglycerides (<150) mg/dL 08/14/19 08/14/19 08/14/19 Range/Units 15:06 16:43 19:46 RBC (3.80-5.40) m/uL Hgb (11.4-16.0) gm/dL Hct (34.0-46.0) % MCHC (31.0-37.0) g/dL APTT (22.0-30.0) sec Chloride (98-107) mmol/L Carbon Dioxide (22-30) mmol/L BUN (7-17) mg/dL Creatinine (0.52-1.04) mg/dL Glucose (74-99) mg/dL POC Glucose (mg/dL) 250 H (75-99) mg/dL Plasma Lactic Acid Nick 4.4 H* 4.5 H* (0.7-2.0) mmol/L Calcium (8.4-10.2) mg/dL Magnesium (1.6-2.3) mg/dL Albumin (3.5-5.0) g/dL Triglycerides (<150) mg/dL 08/14/19 08/14/19 08/15/19 Range/Units 20:21 23:58 04:00 RBC 3.44 L (3.80-5.40) m/uL Hgb 11.0 L (11.4-16.0) gm/dL Hct 33.4 L (34.0-46.0) % MCHC (31.0-37.0) g/dL APTT (22.0-30.0) sec Chloride (98-107) mmol/L Carbon Dioxide (22-30) mmol/L BUN (7-17) mg/dL Creatinine (0.52-1.04) mg/dL Glucose (74-99) mg/dL POC Glucose (mg/dL) 239 H (75-99) mg/dL Plasma Lactic Acid Nick 2.6 H* (0.7-2.0) mmol/L Calcium (8.4-10.2) mg/dL Magnesium (1.6-2.3) mg/dL Albumin (3.5-5.0) g/dL Triglycerides (<150) mg/dL 08/15/19 08/15/19 08/15/19 Range/Units 04:00 04:00 08:04 RBC (3.80-5.40) m/uL Hgb (11.4-16.0) gm/dL Hct (34.0-46.0) % MCHC (31.0-37.0) g/dL APTT (22.0-30.0) sec Chloride 111 H (98-107) mmol/L Carbon Dioxide (22-30) mmol/L BUN 19 H (7-17) mg/dL Creatinine 1.15 H (0.52-1.04) mg/dL Glucose (74-99) mg/dL POC Glucose (mg/dL) (75-99) mg/dL Plasma Lactic Acid Nick 2.1 H* 2.6 H* (0.7-2.0) mmol/L Calcium 7.9 L (8.4-10.2) mg/dL Magnesium 1.4 L (1.6-2.3) mg/dL Albumin 3.3 L (3.5-5.0) g/dL Triglycerides 228 H (<150) mg/dL 08/15/19 Range/Units 11:34 RBC (3.80-5.40) m/uL Hgb (11.4-16.0) gm/dL Hct (34.0-46.0) % MCHC (31.0-37.0) g/dL APTT (22.0-30.0) sec Chloride (98-107) mmol/L Carbon Dioxide (22-30) mmol/L BUN (7-17) mg/dL Creatinine (0.52-1.04) mg/dL Glucose (74-99) mg/dL POC Glucose (mg/dL) 118 H (75-99) mg/dL Plasma Lactic Acid Nick (0.7-2.0) mmol/L Calcium (8.4-10.2) mg/dL Magnesium (1.6-2.3) mg/dL Albumin (3.5-5.0) g/dL Triglycerides (<150) mg/dL Microbiology - Last 24 Hours (Table) 08/13/19 22:45 Blood Culture - Preliminary Blood No Growth after 24 hours Assessment and Plan Assessment: Right middle lobe pneumonia with - Continue with Rocephin, Zithromax - IV fluids - broncho dilators - sputum culture pending - blood cultures negative to date - CTA chest to rule out PE and cancer - follow CXR until clear - pulm hygiene Internal carotid artery occlusion -Aspirin, Plavix -Vascular surgery recommendations appreciated outpatient follow up in 2-4 weeks Diabetes mellitus type 2 with hyperglycemia -Patient was having relative hypoglycemia blood sugar of 83, decrease Levemir to 18 units at night, continue with sliding scale -Sliding-scale insulin -Hemoglobin A1c pending - off metformin Enlarged left submandibular lymphnode - consult ENT CKD III - monitor closely with contrast - at baseline - follow Cr - avoid additional nephrotoxic agents Hypertension, controlled - Atenolol - follow BP Depression with insomnia - seroquel - prn melatonin A fib ruled out currently in sinus lactic acidosis, improved DVT prophylaxis: Heparin gtt Discussed with: Patient, daughter, nursing, Anticipated discharge: 3-[address]: home A total of 25 minutes was spent on the care of this complex patient more than 50% of the time was spent in counseling and care coordination.
[2019-08-15] MEDS: HEPARIN SODIUM,PORCINE 5,000 UNIT/ML 1 ML VIAL SQ SCH (14:58)
--- NOTE | 2019-08-15 16:34 | CT ---
EXAMINATION TYPE: CT chest angio for PE DATE OF EXAM: 08/15/2019 COMPARISON: NONE HISTORY: SOB CT DLP: 353.6 mGycm. Automated Exposure Control for Dose Reduction was Utilized. CONTRAST: CTA scan of the thorax is performed with IV Contrast, patient injected with 65cc mL of Isovue 370, pu lmonary embolism protocol. MIP Images are created on CT scanner and reviewed. FINDINGS: LUNGS: Posterior segment right upper lobe consolidation is seen with peribronchial cuffing on image 5 9 of series 5. Surrounding groundglass opacities. Background fluid overload is seen with interlobular septal thickening and small bilateral layering pleural effusions. Peripheral reticulation may relate to fluid overload or early fibrosis. Lingular opacity is somewhat nodular and could represent atelec tasis, pulmonary nodule or secondary site of infection. No sizable pneumothorax. MEDIASTINUM: There is satisfactory enhancement of the pulmonary artery and its branches, there is no CT evidence for pulmonary embolism. Right infrahilar lymph node measures upper limits of normal size at 1.0 cm. Subcarinal lymph node is also upper limits of normal size measuring 1.4 cm. No cardiomegal y or pericardial effusion is seen. Right and left main pulmonary arteries are enlarged measuring up t o 2.3 cm. Moderate to severe coronary artery calcifications. OTHER: Old healed fracture deformity of the right first rib with pseudoarticulation moderate degenera tive change of the spine.. IMPRESSION: 1. No evidence of pulmonary embolus. Right upper lobe consolidation is most typical of pneumonia alth ough follow-up CT after treatment is recommended to exclude underlying mass or nodule. Peribronchial cuffing is likely infectious. 2. Fluid overload is seen with small pleural effusions and mild interstitial pulmonary edema. 3. Subpleural reticulation may be on the basis of edema or early pulmonary fibrosis. 4. Nodular lingular consolidation could represent atelectasis, nodule or secondary site of infection. 5. Enlargement of the right and left main pulmonary artery suggests underlying pulmonary arterial hyp ertension. 6. Moderate to severe coronary artery calcifications, marker of coronary artery disease
[2019-08-15 16:36] LABS: Glucose,Whole Blood 257 mg/dL (75-99)
[2019-08-15 20:22] LABS: Glucose,Whole Blood 141 mg/dL (75-99)
[2019-08-15] MEDS: QUEtiapine 25 MG TAB PO SCH (21:24)
[2019-08-15] MEDS: INSULIN DETEMIR (LEVEMIR) 100 UNIT/ML SYR SQ SCH (21:50)
[2019-08-16] MEDS: HEPARIN SODIUM,PORCINE 5,000 UNIT/ML 1 ML VIAL SQ SCH ×3 (01:53→16:02)
[2019-08-16] MEDS: SODIUM CHLORIDE 0.9% 1,000 ML IV SCH ×3 (04:37→17:33)
[2019-08-16 07:02] LABS: Glucose,Whole Blood 155 mg/dL (75-99)
[2019-08-16] MEDS: AZITHROMYCIN 500 MG TAB PO SCH (08:02)
[2019-08-16] MEDS: INSULIN ASPART (NovoLOG) 100 UNIT/ML VIAL SQ SCH ×3 (08:02→17:33)
[2019-08-16] MEDS: CLOPIDOGREL 75 MG TAB PO SCH (08:02)
[2019-08-16] MEDS: ATENOLOL 25 MG TAB PO SCH ×2 (08:02→21:17)
[2019-08-16] MEDS: ASPIRIN 81 MG PO SCH (08:03)
[2019-08-16 10:00] LABS: Basophils % (A) 0 %; Eosinophils # (A) 0.2 k/uL (0-0.7); Eosinophils % (A) 3 %; HGB 9.6 gm/dL (11.4-16.0); Lymphocytes # (A) 1.4 k/uL (1.0-4.8); Lymphocytes % (A) 24 %; MCH 30.1 pg (25.0-35.0); MCHC 31.2 g/dL (31.0-37.0); MCV 96.7 fL (80.0-100.0); Mean Platelet Volume 7.2; Monocytes # (A) 0.3 k/uL (0-1.0); Monocytes % (A) 5 %; Neutrophils # (A) 3.9 k/uL (1.3-7.7); Neutrophils % (A) 67 %; Platelet Count 322 k/uL (150-450); RDW 14.6 % (11.5-15.5); WBC 5.8 k/uL (3.8-10.6)
[2019-08-16 10:20] LABS: Calcium 7.5 mg/dL (8.4-10.2); Magnesium 1.2 mg/dL (1.6-2.3); Potassium 3.5 mmol/L (3.5-5.1)
[2019-08-16 11:12] LABS: Hemoglobin A1C 10.5 % (4.0-6.0)
[2019-08-16 11:34] LABS: Glucose,Whole Blood 167 mg/dL (75-99)
--- NOTE | 2019-08-16 14:27 | P.PN ---
Subjective Progress Note Date: 08/16/19 Seen and evaluated sitting up in bed in no acute distress. Patient denies any changes through the night. Objective - Vital Signs Vital signs: Vital Signs Temp 98.3 F 08/16/19 04:45 Pulse 56 L 08/16/19 04:45 Resp 22 08/16/19 04:45 BP 107/67 08/16/19 04:45 Pulse Ox 86 L 08/16/19 04:45 Intake & Output 08/15/19 08/16/19 08/16/19 18:59 06:59 18:59 Intake Total 1880 400 Balance 1880 400 Intake: IV 800 Sodium Chloride 0.9% 1, 800 000 ml @ 100 mls/hr IV . Q10H [facility] Rx#:[id number] Oral 1080 400 Other: Voiding Method Toilet # Voids 4 2 # Bowel Movements 0 - Exam General appearance: The patient is alert, oriented, in no acute distress. HET: Head is normocephalic and atraumatic. Neck: Supple. Trachea midline. Heart: S1 S2. Regular rate and rhythm. Lungs: Bilateral expiratory wheezes with coarse rhonchi bilaterally. Extremities: Normal skin color and turgor. No cyanosis, rash, ulceration, clubbing, or edema. Radial are 2/4 bilaterally. Neurological: No focal deficits. Strength and sensation are grossly intact. - Labs CBC & Chem 7: 08/16/19 09:08 08/16/19 09:08 Labs: Abnormal Lab Results - Last 24 Hours (Table) 08/15/19 08/15/19 08/15/19 Range/Units 04:00 16:34 20:12 RBC (3.80-5.40) m/uL Hgb (11.4-16.0) gm/dL Hct (34.0-46.0) % Chloride (98-107) mmol/L Creatinine (0.52-1.04) mg/dL Glucose (74-99) mg/dL POC Glucose (mg/dL) 257 H 141 H (75-99) mg/dL Hemoglobin A1c 10.5 H (4.0-6.0) % Calcium (8.4-10.2) mg/dL Magnesium (1.6-2.3) mg/dL 08/16/19 08/16/19 08/16/19 Range/Units 06:59 09:08 09:08 RBC 3.20 L (3.80-5.40) m/uL Hgb 9.6 L (11.4-16.0) gm/dL Hct 31.0 L (34.0-46.0) % Chloride 110 H (98-107) mmol/L Creatinine 1.19 H (0.52-1.04) mg/dL Glucose 167 H (74-99) mg/dL POC Glucose (mg/dL) 155 H (75-99) mg/dL Hemoglobin A1c (4.0-6.0) % Calcium 7.5 L (8.4-10.2) mg/dL Magnesium 1.2 L (1.6-2.3) mg/dL 08/16/19 Range/Units 11:33 RBC (3.80-5.40) m/uL Hgb (11.4-16.0) gm/dL Hct (34.0-46.0) % Chloride (98-107) mmol/L Creatinine (0.52-1.04) mg/dL Glucose (74-99) mg/dL POC Glucose (mg/dL) 167 H (75-99) mg/dL Hemoglobin A1c (4.0-6.0) % Calcium (8.4-10.2) mg/dL Magnesium (1.6-2.3) mg/dL Microbiology - Last 24 Hours (Table) 08/15/19 15:20 Gram Stain - Preliminary Sputum Sputum Culture - Preliminary 08/13/19 22:45 Blood Culture - Preliminary Blood No Growth after 48 hours Assessment and Plan Assessment: #1 occluded right internal carotid artery, chronic, surgically induced by reports #2 reported 40-50% stenosis of her left internal carotid artery #3 productive cough, pneumonia #4 history of CVA/TIA #5 COPD #6 CHF Plan: Dr. Gregg reviewed carotid doppler of the neck and due to chronic nature of stenosis there is no need for any vascular surgical intervention at this time. Patient will follow up in the office after discharge. Patient to remain on aspirin and Plavix along with a statin. The above dictated assessment and findings were discussed with Dr. Gregg. The impression and plan of care have been directed as dictated.
[2019-08-16 15:25] VITALS: BMI 26.6
[2019-08-16 16:44] LABS: Glucose,Whole Blood 150 mg/dL (75-99)
--- NOTE | 2019-08-16 17:29 | P.PN ---
Subjective Progress Note Date: 08/16/19 (delayed charting seen at 0845) Principal diagnosis: shortness of breath Patient is a 69 yo CF with known carotid stenosis with hx of CEA on the R X2 and L X 2, Prior CVA and TIA, DM 2 insulin requiring and well controlled, and HLD who initially presented to [facility] with complaints of cough, sore throat and shortness of breath X 2 months. She underwent an extensive evaluation at [facility]. Due to her loss of voice and sore throat she underwent a CT soft tissue of the neck which showed a right upper lobe pneumonia, complete occlusion of the right internal carotid artery with suspected thrombus, and enlargement of the left submandibular lymph node. Rapid strep and influenza were negative. EKG was unremarkable. She was started on IV fluids, antibiotics, and hepearin gtt due to possible clot. Arrangements were made for transfer here for further evaluation. On arrival in the ER she was found to be tachycardic and EKG showed normal sinus rhythm. Lactic acid was drawn which was significantly elevated. Her magnesium level was low at [facility] and she was given 1 g of magnesium and repeat magnesium was normalized. Chest x-ray here confirmed PNA in the right middle lobe. She was seen by vascular surgery and this was determined to be a chronic occlusion after carotid dopller confirmed complete occlusion. She will follow-up with vascular surgery in the outpatient setting. ENT felt that her enlarged submandibular lymphnode would be best worked up in the outpatient setting. She did not have significant improve in her symptoms by the morning of 08/15 despite treatment with duonebs, rocephin, and zithromax. CT chest showed no pulmonary embolism but did confirm RUL pneumonia and recommended repeat CT after completing of treatment. By the morning of 08/16 she was having significant improvement in breathing and cough. Patient seen and examined at bedside. feeling much better today. Cough is improving. Shortness of breath improving. Adamantly refuses home health care and states they're not able to come to her house, however she is willing to closely follow up with her primary care physician. Aware that she needs a repeat CT chest when she has completed antibiotic therapy. Objective - Vital Signs Vital signs: Vital Signs Temp 98.0 F 08/16/19 13:30 Pulse 80 08/16/19 13:30 Resp 14 08/16/19 13:30 BP 127/58 08/16/19 13:30 Pulse Ox 90 L 08/16/19 13:30 Intake & Output 08/15/19 08/16/19 08/16/19 18:59 06:59 18:59 Intake Total 9291 393 3066 Balance 9383 655 4546 Weight 72.575 kg Intake: IV 800 800 Sodium Chloride 0.9% 1, 800 800 000 ml @ 100 mls/hr IV . Q10H JOSEPH Rx#:[id number] Oral 1080 400 540 Other: Voiding Method Toilet # Voids 4 2 3 # Bowel Movements 0 - Exam General: Non toxic, no distress, appears at stated age Derm: warm, dry Head: atraumatic, normocephalic, symmetric Eyes: EOMI, no lid lag, anicteric sclera Mouth: no lip lesion, mucus membranes dry, no thrush Cardiovascular: S1S2 tachycardic, 2+ systolic ejection murmur, positive posterior tibial pulse bilateral, Lungs: Coarse breath sounds bilateral, no accessory muscle use, no conversational dyspnea Abdominal: soft, nontender to palpation, no guarding, no appreciable organomegaly Ext: no gross muscle atrophy, no edema, no contractures Neuro: CN II-XI grossly intact, no focal neuro deficits Psych: Alert, oriented, appropriate affect - Labs CBC & Chem 7: 08/16/19 09:08 08/16/19 09:08 Labs: Abnormal Lab Results - Last 24 Hours (Table) 08/15/19 08/15/19 08/16/19 Range/Units 04:00 20:12 06:59 RBC (3.80-5.40) m/uL Hgb (11.4-16.0) gm/dL Hct (34.0-46.0) % Chloride (98-107) mmol/L Creatinine (0.52-1.04) mg/dL Glucose (74-99) mg/dL POC Glucose (mg/dL) 141 H 155 H (75-99) mg/dL Hemoglobin A1c 10.5 H (4.0-6.0) % Calcium (8.4-10.2) mg/dL Magnesium (1.6-2.3) mg/dL 08/16/19 08/16/19 08/16/19 Range/Units 09:08 09:08 11:33 RBC 3.20 L (3.80-5.40) m/uL Hgb 9.6 L (11.4-16.0) gm/dL Hct 31.0 L (34.0-46.0) % Chloride 110 H (98-107) mmol/L Creatinine 1.19 H (0.52-1.04) mg/dL Glucose 167 H (74-99) mg/dL POC Glucose (mg/dL) 167 H (75-99) mg/dL Hemoglobin A1c (4.0-6.0) % Calcium 7.5 L (8.4-10.2) mg/dL Magnesium 1.2 L (1.6-2.3) mg/dL 08/16/19 Range/Units 16:43 RBC (3.80-5.40) m/uL Hgb (11.4-16.0) gm/dL Hct (34.0-46.0) % Chloride (98-107) mmol/L Creatinine (0.52-1.04) mg/dL Glucose (74-99) mg/dL POC Glucose (mg/dL) 150 H (75-99) mg/dL Hemoglobin A1c (4.0-6.0) % Calcium (8.4-10.2) mg/dL Magnesium (1.6-2.3) mg/dL Microbiology - Last 24 Hours (Table) 08/15/19 15:20 Gram Stain - Preliminary Sputum Sputum Culture - Preliminary 08/13/19 22:45 Blood Culture - Preliminary Blood No Growth after 48 hours Assessment and Plan Assessment: Right middle lobe pneumonia with - Continue with Rocephin, Zithromax - IV fluids completed - bronchodilators - sputum culture pending - blood cultures negative to date - CTA chest with pneumonia, repeat once abx completed. - pulm hygiene Internal carotid artery occlusion -Aspirin, Plavix -Vascular surgery recommendations appreciated outpatient follow up in 2-4 weeks Diabetes mellitus type 2 with hyperglycemia -Patient was having relative hypoglycemia blood sugar of 83, Levemir to 18 units at night, continue with sliding scale -Sliding-scale insulin -Hemoglobin A1c 10.5, need outpatient follow-up with PCP, refuses home care - off metformin Enlarged left submandibular lymphnode - Follow up ENT in office CKD III - monitor closely with contrast - at baseline - follow Cr - avoid additional nephrotoxic agents Hypertension, controlled - Atenolol - follow BP Depression with insomnia - seroquel - prn melatonin A fib ruled out currently in sinus lactic acidosis, improved DVT prophylaxis: Heparin gtt Discussed with: Patient, nursing, Anticipated discharge: in AM Anticipated discharge place: home A total of 25 minutes was spent on the care of this complex patient more than 50% of the time was spent in counseling and care coordination.
[2019-08-16] MEDS ORDERED: ATORVASTATIN 40 MG TAB PO SCH (21:00)
[2019-08-16 21:14] LABS: Glucose,Whole Blood 200 mg/dL (75-99)
[2019-08-16] MEDS: QUEtiapine 25 MG TAB PO SCH (21:17)
[2019-08-16] MEDS: INSULIN DETEMIR (LEVEMIR) 100 UNIT/ML SYR SQ SCH (21:18)
[2019-08-17] MEDS: HEPARIN SODIUM,PORCINE 5,000 UNIT/ML 1 ML VIAL SQ SCH ×2 (00:02→08:07)
[2019-08-17 04:52] VITALS: BP 133/69; PULSE 75; RESP 24; TEMP 97.8
[2019-08-17 07:15] LABS: Glucose,Whole Blood 137 mg/dL (75-99)
[2019-08-17 07:51] LABS: Basophils % (A) 1 %; Eosinophils # (A) 0.2 k/uL (0-0.7); Eosinophils % (A) 4 %; HCT 34.3 % (34.0-46.0); HGB 10.8 gm/dL (11.4-16.0); Hypochromasia Slight; Lymphocytes # (A) 1.4 k/uL (1.0-4.8); Lymphocytes % (A) 23 %; MCH 30.6 pg (25.0-35.0); MCHC 31.5 g/dL (31.0-37.0); MCV 97.1 fL (80.0-100.0); Mean Platelet Volume 7.2; Monocytes # (A) 0.3 k/uL (0-1.0); Monocytes % (A) 5 %; Neutrophils # (A) 4.1 k/uL (1.3-7.7); Neutrophils % (A) 66 %; Platelet Count 330 k/uL (150-450); RBC 3.54 m/uL (3.80-5.40); RDW 14.6 % (11.5-15.5); WBC 6.2 k/uL (3.8-10.6)
[2019-08-17] MEDS: AZITHROMYCIN 500 MG TAB PO SCH (08:07)
[2019-08-17] MEDS: CLOPIDOGREL 75 MG TAB PO SCH (08:07)
[2019-08-17] MEDS: ATENOLOL 25 MG TAB PO SCH (08:07)
[2019-08-17] MEDS: INSULIN ASPART (NovoLOG) 100 UNIT/ML VIAL SQ SCH (08:07)
[2019-08-17] MEDS: ASPIRIN 81 MG PO SCH (08:07)
[2019-08-17] MEDS: SODIUM CHLORIDE 0.9% 1,000 ML IV SCH (08:07)
[2019-08-17] MEDS: BENZONATATE 100 MG CAP PO PRN (08:15)
--- NOTE | 2019-08-17 09:00 | P.DS ---
Providers Date of admission: 08/13/19 22:12 Expected date of discharge: 08/17/19 Attending physician: Jennifer Patiño MD Consults: 08/14/19 00:48 Consult Physician Urgent Consulting Provider: Stefania Gregg Consult Reason/Comments: R ICA thrombosis with complete occusion, asymptomatic pt Do you want consulting provider notified?: Yes 08/14/19 14:56 Consult Physician Routine Consulting Provider: Vinny Cotto Consult Reason/Comments: left mandibular lymphnode enlargement Do you want consulting provider notified?: Yes Primary care physician: Sekou Apodaca DO Hospital Course: Discharge Diagnosis: Right middle lobe pneumonia, possible gram negative Probable COPD Internal carotid arter occlusion right, chronic DM 2 - A1C >10 Enlarge submandibular lymphnode CKD III HTN Depression Lactic acidosis Hospital Course: Patient is a 69 yo CF with known carotid stenosis with hx of CEA on the R X2 and L X 2, Prior CVA and TIA, DM 2 insulin requiring and poorly controlled, and HLD who initially presented to [facility] with complaints of cough, sore throat and shortness of breath X 2 months. She underwent an extensive evaluation at [facility]. Due to her loss of voice and sore throat she underwent a CT soft tissue of the neck which showed a right upper lobe pneumonia, complete occlusion of the right internal carotid artery with suspected thrombus, and enlargement of the left submandibular lymph node. Rapid strep and influenza were negative. EKG was unremarkable. She was started on IV fluids, antibiotics, and hepearin gtt due to possible clot. Arrangements were made for transfer here for further evaluation. On arrival in the ER she was found to be tachycardic and EKG showed normal sinus rhythm. Lactic acid was drawn which was significantly elevated. Her magnesium level was low at [facility] and she was given 1 g of magnesium and repeat magnesium was n ormalized. Chest x-ray here confirmed PNA in the right middle lobe. She was seen by vascular surgery and this was determined to be a chronic occlusion after carotid doppler confirmed complete occlusion. She will follow-up with vascular surgery in the outpatient setting. ENT felt that her enlarged submandibular lymphnode would be best worked up in the outpatient setting. She did not have significant improvement in her symptoms by the morning of /2 despite treatment with duonebs, rocephin, and zithromax. CT chest showed no pulmonary embolism but did confirm RUL pneumonia and recommended repeat CT after completing of treatment. By the morning of 08/16 she was having significant improvement in breathing and cough. She was founf to have probable COPD. She will require home O2 after evaluation at 87% at rest. 1. Follow-up ENT for enlarged lymphnode 2. Will need repeat CT chest to ensure pneumonia resolved 3. Follow-up Dr. Gregg, vascular surgery in 4 weeks. 4. Take all antibiotics until gone 5. Aspirin and Plavix Patient seen and examined at bedside. Breathing is better, cough is lessening, no nuasea, no vomiting, had a bloody nose this moring. Feels that she will do better at home. Aware of the improtance of follow-up Vital signs reviewed and stable. General: non toxic, no distress, appears at stated age, obese Derm: warm, dry Head: atraumatic, normocephalic, symmetric Eyes: EOMI, no lid lag, anicteric sclera Mouth: no lip lesion, mucus membranes moist Cardiovascular: S1S2 reg, no murmur, positive posterior tibial pulse bilateral, Lungs: ronchi right middle lobe , no accessory muscle use Abdominal: soft, nontender to palpation, no guarding, no appreciable organomegaly Ext: no gross muscle atrophy, no edema, no contractures Neuro: CN II-XI grossly intact, no focal neuro deficits Psych: Alert, oriented, appropriate affect A total of 35 minutes of time were spent preparing this complex discharge summary . Patient Condition at Discharge: Stable Plan - Discharge Summary Discharge Rx Participant: No New Discharge Prescriptions: New Cefdinir [Omnicef] 300 mg PO Q12HR #12 capsule Clopidogrel [Plavix] 75 mg PO DAILY #30 tab Azithromycin [Zithromax] 500 mg PO DAILY #6 tab Continue Atenolol [Tenormin] 25 mg PO BID Aspirin 81 mg PO DAILY metFORMIN HCL 1,000 mg PO BID QUEtiapine [SEROquel] 25 mg PO HS Insulin Lispro [Admelog] See Protocol SQ AC-TID Changed Insulin Detemir (Levemir) [Levemir] 18 unit SQ HS #0 Discharge Medication List Aspirin 81 mg PO DAILY 04/13/15 [History] Atenolol [Tenormin] 25 mg PO BID 04/13/15 [History] metFORMIN HCL 1,000 mg PO BID 04/14/15 [History] QUEtiapine [SEROquel] 25 mg PO HS 08/14/19 [History] Insulin Lispro [Admelog] See Protocol SQ AC-TID 08/16/19 [History] Azithromycin [Zithromax] 500 mg PO DAILY #6 tab 08/17/19 [Rx] Cefdinir [Omnicef] 300 mg PO Q12HR #12 capsule 08/17/19 [Rx] Clopidogrel [Plavix] 75 mg PO DAILY #30 tab 08/17/19 [Rx] Insulin Detemir (Levemir) [Levemir] 18 unit SQ HS #0 08/17/19 [Rx] Follow up Appointment(s)/Referral(s): Sekou Apodaca DO [Primary Care Provider] - 08/23/19 2:00 pm Stefania Gregg DO [STAFF PHYSICIAN] - 4 Weeks Vinny Cotto MD [STAFF PHYSICIAN] - 1 Week Patient Instructions/Handouts: Community Acquired Pneumonia (DC) Activity/Diet/Wound Care/Special Instructions: Activity: as tolerated Diet: Carb consistent Special Instructions: 1. Follow-up ENT for enlarged lymphnode 2. Will need repeat CT chest to ensure pneumonia resolved 3. Follow-up Dr. Gregg, vascular surgery in 4 weeks. 4. Take all antibiotics until gone 5. Aspirin and Plavix Discharge Disposition: HOME SELF-CARE
--- NOTE | 2019-08-20 15:46 | CDI ---
Documentation Clarification Form Date: 08/20/19 From: Annabelle Lopez CCS Phone: If you have a question about this query, please contact Lucero Chase, Receptionist Clerk at [phone] between 8am and 5pm. Admit Date: 08/13/19 Discharge Date: 08/17/19 Patient Name: Mansi Carolina Visit Number: [id number] ATTENTION: The Clinical Documentation Specialists (CDI) and [facility] Coding Staff appreciate your assistance in clarifying documentation. Please respond to the clarification below the line at the bottom and electronically sign. The CDI & [facility] Coding staff will review the response and follow-up if needed. Please note: Queries are made part of the Legal Health Record. If you have any questions, please contact the author of this message via ITS. Dear Dr. Roth, The diagnosis sepsis was documented in the H&P, but is not noted in subsequent documentation. History/Risk Factors: PNA, COPD, DM, CKD Clinical Indicators: Acidosis, tachycardia WBC: 6.2, 7.6 Lactic Acid: 6.3, 6.1 Blood Culture: No growth after 144 hours Treatment: Zithromax 250 ml IVPB daily, Rocephin 1 gm IVPB once Please clarify if the sepsis was Present/active this admission Treated and resolved this admission Ruled out Other, please specify Clinically unable to determine Ruled out MTDD
== END 2019-08-17 11:59 | disposition home or self-care (01) | DRG 194 ==
LOC: EC 21:21 → 6NMEDSUR 22:12
PROVIDERS: ADMIT Internal Medicine; ATTEND Internal Medicine
DX: J18.9 Pneumonia, unspecified organism (principal); I13.0 Hypertensive heart and chronic kidney disease with heart failure and stage 1 through stage 4 chronic kidney disease, or unspecified chronic kidney disease; J44.0 Chronic obstructive pulmonary disease with (acute) lower respiratory infection; E87.2 Acidosis; E11.649 Type 2 diabetes mellitus with hypoglycemia without coma; I50.9 Heart failure, unspecified; N18.3 Chronic kidney disease, stage 3 (moderate); E11.22 Type 2 diabetes mellitus with diabetic chronic kidney disease; E78.5 Hyperlipidemia, unspecified; I65.23 Occlusion and stenosis of bilateral carotid arteries; E83.42 Hypomagnesemia; E11.65 Type 2 diabetes mellitus with hyperglycemia; R59.0 Localized enlarged lymph nodes; R04.0 Epistaxis; G47.00 Insomnia, unspecified; F32.9 Major depressive disorder, single episode, unspecified; F41.9 Anxiety disorder, unspecified; Z71.3 Dietary counseling and surveillance; Z79.82 Long term (current) use of aspirin; Z79.4 Long term (current) use of insulin; Z79.899 Other long term (current) drug therapy; Z87.891 Personal history of nicotine dependence; Z86.73 Personal history of transient ischemic attack (TIA), and cerebral infarction without residual deficits; Z87.01 Personal history of pneumonia (recurrent); Z90.49 Acquired absence of other specified parts of digestive tract; Z98.890 Other specified postprocedural states; Z90.721 Acquired absence of ovaries, unilateral; Z88.2 Allergy status to sulfonamides
CPT/HCPCS: 71046; 71275; 80048; 80053; 80061; 82272; 83036; 83605; 83615; 83735; 84100; 85025; 85027; 85610; 85730; 87040; 87070; 87205; 87324; 87502; 93005; 93880; 94640; 96365; 96375; 99285

== ENCOUNTER 2020-03-22 23:45 | Inpatient (IN) | payer MEDICARE ==
--- NOTE | 2020-03-23 00:19 | ED ---
General Adult HPI - General Chief complaint: Shortness of Breath Stated complaint: SOB Time Seen by Provider: 03/22/20 23:57 Source: patient, EMS Mode of arrival: EMS Limitations: no limitations - History of Present Illness Initial comments: This patient is a 69-year-old woman who presents here as a transfer from [facility]. I have obtained history from the patient and from her . Unfortunately the transfer paperwork from [facility] pertains to a patient's previous visit in February. The patient today had been feeling weak and fatigued. Around noon she went to the bathroom and her heard her fall and went and checked and she was on the bathroom floor. He states that he attempted to get her up for close to 2 hours before she was finally able to get up and get back to bed. He states that she rested there and he gave her water to drink. Later in the evening she did attempt to get out of bed and slid to the floor again. Patient's also notes that at time she has been confused at home. At that point he called an ambulance and they went to [facility]. Currently patient denies any pains. She does state that she is feeling a little short of breath. Patient denies fever or chills. No cough. Patient denies focal weakness. Onset/Timin -: days(s) Severity scale (1-10): 0 Improves with: none Worsens with: none Associated Symptoms: shortness of breath Treatments Prior to Arrival: none - Related Data Home Medications Medication Instructions Recorded Confirmed atenoloL [Tenormin] 25 mg PO BID 04/13/15 03/23/20 metFORMIN HCL 1,000 mg PO BID 04/14/15 03/23/20 QUEtiapine [SEROquel] 25 mg PO HS 08/14/19 03/23/20 INSULIN LISPRO (HumaLOG) [humaLOG] [address] [facility] 03/23/20 03/23/20 Insulin Detemir (Levemir) [Levemir] 46 unit SQ 03/23/20 03/23/20 Allergies Allergy/AdvReac Type Severity Reaction Status Date / Time Sulfa (Sulfonamide Allergy Rash/Hives Verified 03/23/20 06:27 Antibiotics) Review of Systems ROS Statement: Those systems with pertinent positive or pertinent negative responses have been documented in the HPI. ROS Other: All systems not noted in ROS Statement are negative. Limitations: ROS unobtainable due to patients medical condition Constitutional: Reports: weakness. Denies: fever, chills Respiratory: Reports: dyspnea. Denies: cough, hemoptysis Cardiovascular: Denies: chest pain, palpitations, orthopnea, syncope Gastrointestinal: Denies: abdominal pain, nausea, vomiting, diarrhea, constipation Genitourinary: Denies: dysuria, frequency, hematuria Musculoskeletal: Denies: back pain Skin: Denies: rash Neurological: Denies: headache, weakness, numbness Past Medical History Past Medical History: Atrial Fibrillation, CVA/TIA Additional Past Medical History / Comment(s): vaginal dyslagia,carotid artery blockage History of Any Multi-Drug Resistant Organisms: None Reported Past Surgical History: Hysterectomy, Tonsillectomy, Tubal Ligation Additional Past Surgical History / Comment(s): lithotripsy Past Anesthesia/Blood Transfusion Reactions: No Reported Reaction Past Psychological History: Anxiety Smoking Status: Never smoker Past Alcohol Use History: None Reported Past Drug Use History: None Reported - Past Family History Father History Unknown: Yes General Exam General appearance: alert, in no apparent distress Head exam: Present: atraumatic, normocephalic Eye exam: Present: normal appearance. Absent: scleral icterus, conjunctival injection ENT exam: Present: mucous membranes dry Neck exam: Present: normal inspection Respiratory exam: Present: normal lung sounds bilaterally, rales (Bilateral ba ses). Absent: respiratory distress, wheezes, rhonchi, stridor Cardiovascular Exam: Present: regular rate, normal rhythm, normal heart sounds. Absent: systolic murmur, diastolic murmur, rubs, gallop GI/Abdominal exam: Present: soft. Absent: distended, tenderness, guarding, rebound, rigid, mass Extremities exam: Present: normal inspection, normal capillary refill. Absent: pedal edema, calf tenderness Back exam: Present: normal inspection. Absent: CVA tenderness (R), CVA tenderness (L) Neurological exam: Present: alert, oriented X3, CN II-XII intact. Absent: motor sensory deficit Skin exam: Present: warm, dry, intact, normal color. Absent: rash Course Vital Signs 03/22/20 03/23/20 03/23/20 23:55 01:43 02:58 Temperature 99.1 F Pulse Rate 83 73 18 L Pulse Rate [ Pulse Oximetery ] Respiratory 20 19 20 Rate Blood Pressure 110/52 99/47 103/50 Blood Pressure [Right Arm] O2 Sat by Pulse 97 96 96 Oximetry 03/23/20 03/23/20 03/23/20 04:08 05:59 11:57 Temperature 98 F 98.9 F Pulse Rate 66 76 79 Pulse Rate [ Pulse Oximetery ] Respiratory 20 20 19 Rate Blood Pressure 112/56 105/81 118/63 Blood Pressure [Right Arm] O2 Sat by Pulse 96 98 98 Oximetry 03/23/20 12:00 Temperature 99 F Pulse Rate Pulse Rate [ 86 Pulse Oximetery ] Respiratory 20 Rate Blood Pressure Blood Pressure 134/59 [Right Arm] O2 Sat by Pulse 100 Oximetry EKG Findings - EKG Results: EKG: interpreted by CATRACHITA, sinus rhythm (Rate 76 bpm), normal axis, normal QRS Medical Decision Making - Medical Decision Making Patient is a 69-year-old woman transferred here from [facility] as they have concerns of possible PE. Unfortunately patient's transfer paperwork did not accompany her. I did discuss with the transferring physician starting heparin prior to sending. Patient's case is discussed with the sound physician who is on and she'll be admitted. Given the lab findings elevated d-dimer and concern of possible PE, heparin is started here. There was no accompanying CT report, but I did review the films and there is approximately 1 cm kidney stone with hydronephrosis. I therefore have consulted urology. - Lab Data Result diagrams: 03/27/20 04:24 03/27/20 04:24 Lab Results 03/23/20 03/23/20 03/23/20 Range/Units 00:37 00:37 00:37 WBC 8.0 (3.8-10.6) k/uL RBC 3.27 L (3.80-5.40) m/uL Hgb 10.1 L (11.4-16.0) gm/dL Hct 32.0 L (34.0-46.0) % MCV 97.8 (80.0-100.0) fL MCH 31.0 (25.0-35.0) pg MCHC 31.7 (31.0-37.0) g/dL RDW 14.2 (11.5-15.5) % Plt Count 262 (150-450) k/uL Neutrophils % 86 % Lymphocytes % 7 % Monocytes % 5 % Eosinophils % 1 % Basophils % 1 % Neutrophils # 6.9 (1.3-7.7) k/uL Lymphocytes # 0.6 L (1.0-4.8) k/uL Monocytes # 0.4 (0-1.0) k/uL Eosinophils # 0.1 (0-0.7) k/uL Basophils # 0.0 (0-0.2) k/uL PT 11.4 (9.0-12.0) sec INR 1.1 (<1.2) APTT 31.5 H (22.0-30.0) sec D-Dimer 4.50 H (<0.60) mg/L FEU Sodium 135 L (137-145) mmol/L Potassium 3.5 (3.5-5.1) mmol/L Chloride 106 (98-107) mmol/L Carbon Dioxide 16 L (22-30) mmol/L Anion Gap 13 mmol/L BUN 50 H (7-17) mg/dL Creatinine 3.39 H (0.52-1.04) mg/dL Est GFR (CKD-EPI)AfAm 15 (>60 ml/min/1.73 sqM) Est GFR (CKD-EPI)NonAf 13 (>60 ml/min/1.73 sqM) Glucose 52 L (74-99) mg/dL Plasma Lactic Acid Nick (0.7-2.0) mmol/L Calcium 7.8 L (8.4-10.2) mg/dL Magnesium 1.4 L (1.6-2.3) mg/dL Total Bilirubin 0.8 (0.2-1.3) mg/dL AST 46 H (14-36) U/L ALT 32 (4-34) U/L Alkaline Phosphatase 78 (38-126) U/L Troponin I (0.000-0.034) ng/mL NT-Pro-B Natriuret Pep pg/mL Total Protein 5.8 L (6.3-8.2) g/dL Albumin 3.0 L (3.5-5.0) g/dL 03/23/20 03/23/20 03/23/20 Range/Units 00:37 00:37 00:37 WBC (3.8-10.6) k/uL RBC (3.80-5.40) m/uL Hgb (11.4-16.0) gm/dL Hct (34.0-46.0) % MCV (80.0-100.0) fL MCH (25.0-35.0) pg MCHC (31.0-37.0) g/dL RDW (11.5-15.5) % Plt Count (150-450) k/uL Neutrophils % % Lymphocytes % % Monocytes % % Eosinophils % % Basophils % % Neutrophils # (1.3-7.7) k/uL Lymphocytes # (1.0-4.8) k/uL Monocytes # (0-1.0) k/uL Eosinophils # (0-0.7) k/uL Basophils # (0-0.2) k/uL PT (9.0-12.0) sec INR (<1.2) APTT (22.0-30.0) sec D-Dimer (<0.60) mg/L FEU Sodium (137-145) mmol/L Potassium (3.5-5.1) mmol/L Chloride (98-107) mmol/L Carbon Dioxide (22-30) mmol/L Anion Gap mmol/L BUN (7-17) mg/dL Creatinine (0.52-1.04) mg/dL Est GFR (CKD-EPI)AfAm (>60 ml/min/1.73 sqM) Est GFR (CKD-EPI)NonAf (>60 ml/min/1.73 sqM) Glucose (74-99) mg/dL Plasma Lactic Acid Nick 0.9 (0.7-2.0) mmol/L Calcium (8.4-10.2) mg/dL Magnesium (1.6-2.3) mg/dL Total Bilirubin (0.2-1.3) mg/dL AST (14-36) U/L ALT (4-34) U/L Alkaline Phosphatase (38-126) U/L Troponin I 0.037 H* (0.000-0.034) ng/mL NT-Pro-B Natriuret Pep 6460 pg/mL Total Protein (6.3-8.2) g/dL Albumin (3.5-5.0) g/dL Critical Care Time Critical Care Time: Yes (35 minutes) Disposition Clinical Impression: Acute renal failure, Elevated troponin level, Sepsis, Hydronephrosis with obstructing calculus, Elevated d-dimer Disposition: ADMITTED IP TO THIS HOSP Condition: Serious
[2020-03-23 00:54] LABS: Basophils % (A) 1 %; Eosinophils # (A) 0.1 k/uL (0-0.7); Eosinophils % (A) 1 %; HGB 10.1 gm/dL (11.4-16.0); Lymphocytes # (A) 0.6 k/uL (1.0-4.8); Lymphocytes % (A) 7 %; MCHC 31.7 g/dL (31.0-37.0); MCV 97.8 fL (80.0-100.0); Mean Platelet Volume 7.5; Monocytes # (A) 0.4 k/uL (0-1.0); Monocytes % (A) 5 %; Neutrophils # (A) 6.9 k/uL (1.3-7.7); Neutrophils % (A) 86 %; Platelet Count 262 k/uL (150-450); RBC 3.27 m/uL (3.80-5.40); RDW 14.2 % (11.5-15.5)
[2020-03-23 01:04] LABS: Calcium 7.8 mg/dL (8.4-10.2); Magnesium 1.4 mg/dL (1.6-2.3); Potassium 3.5 mmol/L (3.5-5.1); Total Bilirubin 0.8 mg/dL (0.2-1.3); Total Protein 5.8 g/dL (6.3-8.2)
[2020-03-23 01:12] LABS: INR 1.1 (<1.2)
[2020-03-23 01:13] LABS: Partial Thromboplastin Time 31.5 sec (22.0-30.0); Prothrombin Time 11.4 sec (9.0-12.0)
[2020-03-23 01:21] LABS: D-Dimer 4.5 mg/L FEU (<0.60)
[2020-03-23] MEDS ORDERED: ENOXAPARIN 80 MG/0.8 ML SYRINGE SQ STA (01:22)
[2020-03-23] MEDS ORDERED: DEXTROSE 50% SYRINGE 50 ML IVP STA (01:24)
[2020-03-23] MEDS ORDERED: NITROGLYCERIN SL TABS 0.4 MG TAB SUBLINGUAL PRN (01:43)
[2020-03-23] MEDS ORDERED: ENOXAPARIN 40 MG/0.4 ML SYRINGE SQ SCH (01:45)
[2020-03-23] MEDS ORDERED: HEPARIN SODIUM,PORCINE 5,000 UNIT/ML 1 ML VIAL IV PRN (02:19)
[2020-03-23] MEDS ORDERED: HEPARIN SODIUM,PORCINE 10,000 UNIT/ML 1 ML VIAL IV ONE (02:19)
[2020-03-23] MEDS ORDERED: HEPARIN SOD,PORK IN 0.45% NACL 25,000 UNIT in 0.45% NACL 1 250ML.BAG IV SCH (02:30)
--- NOTE | 2020-03-23 02:31 | XR ---
EXAMINATION TYPE: XR chest 2V DATE OF EXAM: 03/23/2020 COMPARISON: August 15, 2019 HISTORY: Difficulty breathing TECHNIQUE: FINDINGS: There is coarse interstitial density in the lungs. Heart is top normal in size. There is no pleural effusion. There are no hilar masses. Bony thorax is intact. IMPRESSION: Interstitial pulmonary infiltrates consistent with primary fibrosis. No pleural fluid see n to suggest heart failure. Chronic lung disease is slightly improved compared to old exam.
[2020-03-23] MEDS: SODIUM CHLORIDE 0.9% 1,000 ML IV SCH ×2 (02:46→17:01)
--- NOTE | 2020-03-23 02:51 | P.HPIM ---
History of Present Illness H&P Date: 03/23/20 Chief Complaint: Shortness of breath, generalized weakness 69-year-old female with paroxysmal A. fib Patient comes in after falling at home due to extreme generalized weakness. She claims that she was at her baseline status of health up until last week when Friday she had a procedure of lithotripsy to remove kidney stones. Since then she's been feeling off however today she was extremely tired with some progressive shortness of breath even at rest at this point earlier in the week she was getting short of breath with minimum exertion, denies any paroxysmal nocturnal dyspnea denies any orthopnea denies any leg swelling. Denies any recent traveling denies any history of blood clots. Denies any bleeding. Denies any chest pain. Denies any coughing fevers or chills. She went to [facility] she was found to be hypoxic chest x-ray was negative and initial blood work showed acute kidney injury she was very short of breath. She was given supplemental oxygen CT angios the chest was not done due to acute kidney injury. She was also found to have elevated troponins. She was transferred to our facility for further care In our ER initially she was hypoxic in the mid 80s on room air she was initiated on 5 L of oxygen patient wasn't getting any relief however her oxygen saturation was improving she still complaining of shortness of breath she had clear lungs to exam chest x-ray showed chronic changes. No pleural effusion. Blood work showed elevated d-dimer and elevated troponins EKG showed normal sinus rhythm with T wave inversion in inferior leads. Patient is admitted to rule out PE versus an STEMI Review of Systems Pertinent positives as noted in HPI. All other systems were reviewed and are negative Past Medical History Past Medical History: Atrial Fibrillation, CVA/TIA Additional Past Medical History / Comment(s): vaginal dyslagia,carotid artery blockage History of Any Multi-Drug Resistant Organisms: None Reported Past Surgical History: Hysterectomy, Tonsillectomy, Tubal Ligation Additional Past Surgical History / Comment(s): lithotripsy Past Anesthesia/Blood Transfusion Reactions: No Reported Reaction Past Psychological History: Anxiety Smoking Status: Never smoker Past Alcohol Use History: None Reported Past Drug Use History: None Reported - Past Family History Father History Unknown: Yes Medications and Allergies Home Medications Medication Instructions Recorded Confirmed Type Aspirin 81 mg PO DAILY 04/13/15 08/13/19 History atenoloL [Tenormin] 25 mg PO BID 04/13/15 08/13/19 History metFORMIN HCL 1,000 mg PO BID 04/14/15 08/13/19 History QUEtiapine [SEROquel] 25 mg PO HS 08/14/19 08/14/19 History Insulin Lispro [Admelog] See Protocol SQ AC-TID 08/16/19 08/16/19 History Azithromycin [Zithromax] 500 mg PO DAILY #6 tab 08/17/19 Rx Cefdinir [Omnicef] 300 mg PO Q12HR #12 capsule 08/17/19 Rx Clopidogrel [Plavix] 75 mg PO DAILY #30 tab 08/17/19 Rx Insulin Detemir (Levemir) [Levemir] 18 unit SQ HS #0 08/17/19 08/16/19 Rx Allergies Allergy/AdvReac Type Severity Reaction Status Date / Time Sulfa (Sulfonamide Allergy Rash/Hives Verified 03/23/20 00:04 Antibiotics) Physical Exam Vitals: Vital Signs Temp Pulse Resp BP Pulse Ox 03/23/20 01:43 73 19 99/47 96 03/22/20 23:55 99.1 F 83 20 110/52 97 Intake and Output 03/22/20 03/22/20 03/23/20 14:59 22:59 06:59 Other: Weight 77.111 kg Constitutional: Patient is dyspneic talking short sentences, to Eyes: Anicteric sclerae, moist conjunctiva, Pupils equal round reactive to light ENMT: NC/AT Oropharynx clear, no erythema, or exudates Neck: Supple, FROM, no masses, or JVD No carotid bruits No thyromegaly Lungs: Clear to auscultation Clear to percussion Normal respiratory effort, no accessory muscle use Cardiovascular: Heart regular in rate and rhythm, No murmurs, gallops, or rubs No peripheral edema Abdominal: Soft Nontender, no guarding, rebound or rigidity Abdomen moving with respiration Normoactive bowel sounds No hepatomegaly, No splenomegaly No palpable mass No abdominal wall hernia noted Skin: Normal temperature, tone, texture, turgor No induration No subcutaneous nodules No rash, lesions No ulcers Extremities: No digital cyanosis No clubbing Pedal pulses intact and symmetrical Radial pulses intact and symmetrical No calf tenderness Psychiatric: Alert and oriented to person, place and time Appropriate affect fair judgement Neuro Muscles Strength 4/5 in all 4 extremities Sensation to light touch grossly present throughout Cranial nerves II-XII grossly intact No focal sensory deficits Cerebellar exam finger to nose was intact bilaterally Lymphatics: no palpable cervical or supraclavicular , or inguinal lymph nodes Results CBC & Chem 7: 03/23/20 00:37 03/23/20 00:37 Labs: Abnormal Lab Results - Last 24 Hours (Table) 03/23/20 03/23/20 03/23/20 Range/Units 00:37 00:37 00:37 RBC 3.27 L (3.80-5.40) m/uL Hgb 10.1 L (11.4-16.0) gm/dL Hct 32.0 L (34.0-46.0) % Lymphocytes # 0.6 L (1.0-4.8) k/uL APTT 31.5 H (22.0-30.0) sec D-Dimer 4.50 H (<0.60) mg/L FEU Sodium 135 L (137-145) mmol/L Carbon Dioxide 16 L (22-30) mmol/L BUN 50 H (7-17) mg/dL Creatinine 3.39 H (0.52-1.04) mg/dL Glucose 52 L (74-99) mg/dL Calcium 7.8 L (8.4-10.2) mg/dL Magnesium 1.4 L (1.6-2.3) mg/dL AST 46 H (14-36) U/L Troponin I (0.000-0.034) ng/mL Total Protein 5.8 L (6.3-8.2) g/dL Albumin 3.0 L (3.5-5.0) g/dL 03/23/20 Range/Units 00:37 RBC (3.80-5.40) m/uL Hgb (11.4-16.0) gm/dL Hct (34.0-46.0) % Lymphocytes # (1.0-4.8) k/uL APTT (22.0-30.0) sec D-Dimer (<0.60) mg/L FEU Sodium (137-145) mmol/L Carbon Dioxide (22-30) mmol/L BUN (7-17) mg/dL Creatinine (0.52-1.04) mg/dL Glucose (74-99) mg/dL Calcium (8.4-10.2) mg/dL Magnesium (1.6-2.3) mg/dL AST (14-36) U/L Troponin I 0.037 H* (0.000-0.034) ng/mL Total Protein (6.3-8.2) g/dL Albumin (3.5-5.0) g/dL Assessment and Plan Assessment: Acute hypoxic respiratory failure Suspected PE versus NSTEMI Patient initiated on heparin (patient was counseled regarding risk of bleeding), aspirin, statin Could not perform CT angios the chest due to acute kidney injury Supplemental oxygen as needed Trend troponins Cardiac monitoring Cardiology consult Check venous duplex ultrasound of bilateral legs Chest x-ray and EKG reviewed Neurochecks while on heparin drip Acute kidney injury nonoliguric Avoid nephrotoxic meds IV fluid hydration Monitor urine output Paroxysmal A. fib Currently rate controlled Continue to monitor Anemia unknown baseline Guaiac was negative Patient denies GI bleeding Hypomagnesemia Replace and follow up levels Verify home meds CODE STATUS: Full code DVT prophylaxis: Upper and drip Discussed with: Patient, ER, RN Anticipated length of stay more than [address]: Home A total of 75 minutes was spent on the care of this complex patient more than 50% of the time was spent in counseling and care coordination.
[2020-03-23] MEDS: MAGNESIUM SULFATE-D5W PMX 1 GM in DEXTROSE/WATER 1 100ML.BAG IVPB SCH ×2 (03:01→04:15)
[2020-03-23 05:12] LABS: Glucose,Whole Blood 160 mg/dL (75-99)
[2020-03-23 06:07] LABS: Glucose,Whole Blood 172 mg/dL (75-99)
--- NOTE | 2020-03-23 07:34 | US ---
EXAMINATION TYPE: US venous doppler duplex LE DATE OF EXAM: 03/23/2020 7:27 AM COMPARISON: NONE CLINICAL HISTORY: ? DVT. elevated ddimer. Uncontrollable shaking. No redness. No swelling. SIDE PERFORMED: Bilateral TECHNIQUE: The lower extremity deep venous system is examined utilizing real time linear array sonog alice with graded compression, doppler sonography and color-flow sonography. VESSELS IMAGED: External Iliac Vein (EIV) Common Femoral Vein Deep Femoral Vein Greater Saphenous Vein * Femoral Vein Popliteal Vein Small Saphenous Vein * Proximal Calf Veins (* superficial vessels) Right Leg: Negative for DVT Left Leg: Negative for DVT IMPRESSION: No evidence for DVT at this time.
--- NOTE | 2020-03-23 09:04 | NM ---
EXAMINATION TYPE: NM pul vent and perfuse DATE OF EXAM: 03/23/2020 COMPARISON: NONE HISTORY: Shortness of breath TECHNIQUE: Utilizing inhalation of 68.7 mCi Tc 99m DTPA aerosol and intravenous injection of 5.19 mC i of Tc 99m MAA, ventilation and perfusion images are acquired post injection in multiple projections . FINDINGS: Central accumulation of radiotracer compatible with COPD. Matched defects seen within the upper lobes bilaterally. No evidence for perfusion mismatch. IMPRESSION: Low probability for pulmonary embolism.
[2020-03-23 10:24] LABS: Basophils % (A) 0 %; Eosinophils # (A) 0.1 k/uL (0-0.7); Eosinophils % (A) 1 %; HCT 31.1 % (34.0-46.0); HGB 9.9 gm/dL (11.4-16.0); Lymphocytes # (A) 0.4 k/uL (1.0-4.8); Lymphocytes % (A) 5 %; MCH 31.5 pg (25.0-35.0); MCHC 31.9 g/dL (31.0-37.0); MCV 98.5 fL (80.0-100.0); Mean Platelet Volume 7.8; Monocytes # (A) 0.3 k/uL (0-1.0); Monocytes % (A) 4 %; Neutrophils # (A) 7.3 k/uL (1.3-7.7); Neutrophils % (A) 88 %; Platelet Count 251 k/uL (150-450); RBC 3.16 m/uL (3.80-5.40); RDW 14.3 % (11.5-15.5); WBC 8.3 k/uL (3.8-10.6)
[2020-03-23 10:29] LABS: Albumin 3.1 g/dL (3.5-5.0); Calcium 7.8 mg/dL (8.4-10.2); Potassium 4.2 mmol/L (3.5-5.1); Total Bilirubin 0.6 mg/dL (0.2-1.3); Total Protein 6.5 g/dL (6.3-8.2)
[2020-03-23] MEDS: CLOPIDOGREL 75 MG TAB PO SCH (10:41)
[2020-03-23] MEDS: INSULIN ASPART (NovoLOG) 100 UNIT/ML VIAL SQ SCH ×4 (10:41→20:48)
[2020-03-23] MEDS: atenoloL 25 MG TAB PO SCH ×2 (10:41→20:25)
[2020-03-23 10:43] LABS: Glucose,Whole Blood 226 mg/dL (75-99)
--- NOTE | 2020-03-23 10:56 | ECHOF ---
Referral Reason:abnormal troponin, hypoxia MEASUREMENTS -------- HEIGHT: 167.6 cm WEIGHT: 77.1 kg BP: RVIDd: 2.3 cm (< 3.3) IVSd: 1.0 cm (0.6 - 1.1) LVIDd: 3.8 cm (3.9 - 5.3) LVPWd: 1.2 cm (0.6 - 1.1) IVSs: 1.1 cm LVIDs: 2.9 cm LVPWs: 1.5 cm LAESV Index (A-L): 20.23 ml/m Ao Diam: 2.3 cm (2.0 - 3.7) AV Cusp: 1.8 cm (1.5 - 2.6) LA Diam: 3.2 cm (2.7 - 3.8) MV EXCURSION: 13.883 mm (> 18.000) MV EF SLOPE: 87 mm/s (70 - 150) EPSS: 1.2 cm MV E Flex: 0.87 m/s MV DecT: 218 ms MV A Flex: 1.31 m/s MV E/A Ratio: 0.66 RAP: 5.00 mmHg RVSP: 11.09 mmHg FINDINGS -------- This was a technically difficult study with suboptimal views. The left ventricular size is normal. There is mild concentric left ventricular hypertrophy. Overa ll left ventricular systolic function is low-normal with, an EF between 50 - 55 %. Normal LAP Grade 1 Diastolic Dysfunction. The right ventricle is normal in size. The left atrial size is normal. Normal LA size by volume 22+/-6 ml/m2. The right atrial size is normal. Lumason used The aortic valve is trileaflet and appears structurally normal. The mitral valve is normal. Mild mitral regurgitation is present. The tricuspid valve appears structurally normal. Trace tricuspid regurgitation present. Right kristen tricular systolic pressure is normal at < 35 mmHg. There is no pulmonic regurgitation present. The aortic root size is normal. Normal inferior vena cava with normal inspiratory collapse consistent with estimated right atrial pre ssure of 5 mmHg. There is no pericardial effusion. CONCLUSIONS -------- 1. The left ventricular size is normal. 2. There is mild concentric left ventricular hypertrophy. 3. Overall left ventricular systolic function is low-normal with, an EF between 50 - 55 %. 4. Normal LAP Grade 1 Diastolic Dysfunction. 5. Mild mitral regurgitation is present. 6. Trace tricuspid regurgitation present. 7. There is no pericardial effusion. [employer]CE: Adrianna Stiles RDCS
--- NOTE | 2020-03-23 11:36 | P.NPCON ---
History of Present Illness - Reason for Consult acute renal failure, chronic renal failure - History of Present Illness Reason for consultation: Acute kidney injury on chronic kidney disease History of present illness: Patient is a 69-year-old female seen in consultation for acute kidney injury on chronic kidney disease. has chronic kidney disease stage III with baseline creatinine in the range of 1.1-1.2 from August 2019. Etiology is diabetic kidney disease. Patient states she's been a diabetic for several years. Patient states she went to the bathroom in the middle of the night and fell. She was unable to get up and was brought to [facility] by the ambulance. She was subsequently transferred here. She is currently awake and alert. Patient states oral intake has been poor the last few days. She does admit to loose bowel movements. No vomiting. No chest pain. Does admit to chills. Has been voiding. No hematuria or dysuria. Echocardiogram revealed preserved ejection fraction. No evidence of fluid overload on chest x-ray. She does admit to taking ibuprofen about 2 tablets daily for the last few days. She was also on metformin outpatient. Denies use of diuretics. Denies family history of renal disease. She is currently maintained on IV fluids as well as heparin drip. Blood pressure low in the systolic 90s to low 100s. Vital signs are stable. General: The patient appeared well nourished and normally developed. HEENT: Head exam is unremarkable. Neck is without jugular venous distension. LUNGS: Lungs are clear to auscultation and percussion. Breath sounds decreased. HEART: Rate and Rhythm are regular. ABDOMEN: Soft, nontender. EXTREMITITES: No clubbing, cyanosis, or edema. Past Medical History Past Medical History: Atrial Fibrillation, CVA/TIA Additional Past Medical History / Comment(s): vaginal dyslagia,carotid artery blockage History of Any Multi-Drug Resistant Organisms: None Reported Past Surgical History: Hysterectomy, Tonsillectomy, Tubal Ligation Additional Past Surgical History / Comment(s): lithotripsy Past Anesthesia/Blood Transfusion Reactions: No Reported Reaction Past Psychological History: Anxiety Smoking Status: Never smoker Past Alcohol Use History: None Reported Past Drug Use History: None Reported - Past Family History Father History Unknown: Yes Medications and Allergies Home Medications Medication Instructions Recorded Confirmed Type atenoloL [Tenormin] 25 mg PO BID 04/13/15 03/23/20 History metFORMIN HCL 1,000 mg PO BID 04/14/15 03/23/20 History QUEtiapine [SEROquel] 25 mg PO HS 08/14/19 03/23/20 History INSULIN LISPRO (HumaLOG) [humaLOG] 18 units SQ PCHS 03/23/20 03/23/20 History Insulin Detemir (Levemir) [Levemir] 46 unit SQ HS 03/23/20 03/23/20 History Allergies Allergy/AdvReac Type Severity Reaction Status Date / Time Sulfa (Sulfonamide Allergy Rash/Hives Verified 03/23/20 06:27 Antibiotics) Physical Exam Vitals: Vital Signs Temp Pulse Resp BP Pulse Ox 03/23/20 05:59 98 F 76 20 105/81 98 03/23/20 04:08 66 20 112/56 96 03/23/20 02:58 18 L 20 103/50 96 03/23/20 01:43 73 19 99/47 96 03/22/20 23:55 99.1 F 83 20 110/52 97 Intake and Output 03/22/20 03/23/20 03/23/20 22:59 06:59 14:59 Other: Weight 77.111 kg Results - Lab Results Most recent lab results Calcium 7.8 mg/dL (8.4-10.2) L 03/23/20 10:09 Magnesium 1.4 mg/dL (1.6-2.3) L 03/23/20 00:37 03/23/20 10:09 03/23/20 10:09 Assessment and Plan Plan: Assessment: 1. Acute kidney injury secondary to ATN secondary to hypotension and nonsteroidals. Rettman 3.77 today. 2. Chronic kidney disease stage III secondary to diabetic kidney disease with baseline creatinine 1.1-1.2 from August 2019. 3. Metabolic acidosis secondary to acute kidney injury and GI losses. Was also on metformin outpatient. 4. Insulin-dependent diabetes mellitus. 5. Status post fall. Plan: Maintain normal saline at 100 mL an hour. Add oral sodium bicarbonate. Check urinalysis. Check renal ultrasound. Avoid nephrotoxins. Check CK level. Continue to monitor renal function and urine output. Thank you for the consultation. I will continue to follow the patient with you during her hospital stay.
--- NOTE | 2020-03-23 11:53 | P.CRDCN ---
History of Present Illness Consult date: 03/23/20 History of present illness: CHIEF COMPLAINT: elevated troponins HISTORY OF PRESENT ILLNESS: 69-year-old female with history of diabetes mellitus, TIA, and carotid artery stenosis who presented to emergency room secondary to weakness, fatigue, and a fall at home. Patient states she saw Dr. Redding in the office but it has been "many years" since she saw him. She reports she had lithotripsy and stent removal secondary to kidney stones last Friday at [facility]. She states she was feeling okay after wards. However, she reports over the last couple of days she has had increased weakness and fatigue. She reports shortness of breath. Denies cough or chest congestion. Denies chest pain or pressure. Denies fever or chills. DIAGNOSTICS: EKG reveals sinus rhythm with T-wave inversion in inferior leads Chest xray interstitial pulmonary infiltrates consistent with pulmonary fibr osis. No pleural fluid seen to suggest heart failure. Chronic lung disease is slightly improved compared to exam. Laboratory data: WBC 8.3. Hemoglobin 9.9. Blood count 251. Sodium 134. Potassium 4.2. BUN 54. Creatinine 3.77. Troponin 0.037. 0.34. 0.030. BNP 6460. Current home cardiac medications include atenolol 25 mg twice a day, aspirin 81 mg daily. Patient is prescribed Plavix 75 mg daily as well but she states she refuses to take it. VQ scan: Low probability for pulmonary emboli Venous Doppler: Negative for DVT bilaterally Echocardiogram: Ejection fraction 50-55%, mild mitral regurgitation, trace tricuspid regurgitation. REVIEW OF SYSTEMS: CONSTITUTIONAL: Denies fever or chills. Reports generalized weakness and fatigue HEENT: Denies blurred vision, vision changes, or eye pain. Denies hemoptysis CARDIOVASCULAR: Denies chest pain, orthopnea, PND or palpitations RESPIRATORY: Reports shortness of breath. GASTROINTESTINAL: Denies abdominal pain. Denies nausea or vomiting. HEMATOLOGIC: Denies bleeding disorders. GENITOURINARY: Denies any blood in urine. SKIN: Denies pruitis. Denies rash. PHYSICAL EXAM: VITAL SIGNS: Reviewed. GENERAL: Well-developed in no acute distress but does appear SOB during examination. HEENT: Head is normocephalic. Pupils are equal, round. Sclerae anicteric. Mucous membranes of the mouth are moist. Neck supple. No JVD or thyromegaly LUNGS: Respirations even and unlabored. Lungs with diminished breath sounds. HEART: Regular rate and rhythm. S1 and S2 heard. No murmur. ABDOMEN: Soft. Nondistended. Nontender. EXTREMITIES: Normal range of motion. No clubbing or cyanosis. Peripheral puls es intact. No lower extremity edema NEUROLOGIC: Awake and alert. Oriented x 3. ASSESSMENT: Shortness of breath Acute renal failure Abnormal troponin of unclear significance History of TIA History of carotid stenosis with previous carotid endarterectomy Diabetes mellitus PLAN: Patients shortness of breath may be multifactorial. Could be component of acute renal failure with some fluid retention, however patient does not appear to be fluid overloaded at this time. VQ scan showed low probability for PE. Patient with abnormal EKG with T-wave inversion in inferior leads. However there is no previous EKG to compare this to determine if this is new or old. Unable to completely exclude cardiac etiology however patient denies any chest pain over the last week and troponins are not suggestive of ACS. Recommend continuing heparin drip at this time. Patient will require outpatient cardiac workup. Nurse practitioner note has been reviewed by physician. Signing provider agrees with the documented findings, assessment, and plan of care. Past Medical History Past Medical History: Atrial Fibrillation, CVA/TIA Additional Past Medical History / Comment(s): vaginal dyslagia,carotid artery blockage History of Any Multi-Drug Resistant Organisms: None Reported Past Surgical History: Hysterectomy, Tonsillectomy, Tubal Ligation Additional Past Surgical History / Comment(s): lithotripsy Past Anesthesia/Blood Transfusion Reactions: No Reported Reaction Past Psychological History: Anxiety Smoking Status: Never smoker Past Alcohol Use History: None Reported Past Drug Use History: None Reported - Past Family History Father History Unknown: Yes Medications and Allergies Home Medications Medication Instructions Recorded Confirmed Type atenoloL [Tenormin] 25 mg PO BID 04/13/15 03/23/20 History metFORMIN HCL 1,000 mg PO BID 04/14/15 03/23/20 History QUEtiapine [SEROquel] 25 mg PO HS 08/14/19 03/23/20 History INSULIN LISPRO (HumaLOG) [humaLOG] [address] [facility] 03/23/20 03/23/20 History Insulin Detemir (Levemir) [Levemir] 46 unit SQ HS 03/23/20 03/23/20 History Allergies Allergy/AdvReac Type Severity Reaction Status Date / Time Sulfa (Sulfonamide Allergy Rash/Hives Verified 03/23/20 06:27 Antibiotics) Physical Exam Vitals: Vital Signs Temp Pulse Resp BP Pulse Ox 03/23/20 05:59 98 F 76 20 105/81 98 03/23/20 04:08 66 20 112/56 96 03/23/20 02:58 18 L 20 103/50 96 03/23/20 01:43 73 19 99/47 96 03/22/20 23:55 99.1 F 83 20 110/52 97 Intake and Output 03/22/20 03/23/20 03/23/20 22:59 06:59 14:59 Other: Weight 77.111 kg Results 03/23/20 10:09 03/23/20 10:09 Cardiac Enzymes 03/23/20 03/23/20 03/23/20 Range/Units 00:37 00:37 03:38 AST 46 H (14-36) U/L Troponin I 0.037 H* 0.034 (0.000-0.034) ng/mL 03/23/20 03/23/20 Range/Units 10:09 10:09 AST 48 H (14-36) U/L Troponin I 0.030 (0.000-0.034) ng/mL Coagulation 03/23/20 03/23/20 Range/Units 00:37 10:09 PT 11.4 (9.0-12.0) sec APTT 31.5 H 79.5 H (22.0-30.0) sec CBC 03/23/20 03/23/20 Range/Units 00:37 10:09 WBC 8.0 8.3 (3.8-10.6) k/uL RBC 3.27 L 3.16 L (3.80-5.40) m/uL Hgb 10.1 L 9.9 L (11.4-16.0) gm/dL Hct 32.0 L 31.1 L (34.0-46.0) % Plt Count 262 251 (150-450) k/uL Comprehensive Metabolic Panel 03/23/20 03/23/20 Range/Units 00:37 10:09 Sodium 135 L 134 L (137-145) mmol/L Potassium 3.5 4.2 (3.5-5.1) mmol/L Chloride 106 105 (98-107) mmol/L Carbon Dioxide 16 L 16 L (22-30) mmol/L BUN 50 H 54 H (7-17) mg/dL Creatinine 3.39 H 3.77 H (0.52-1.04) mg/dL Glucose 52 L 208 H (74-99) mg/dL Calcium 7.8 L 7.8 L (8.4-10.2) mg/dL AST 46 H 48 H (14-36) U/L ALT 32 32 (4-34) U/L Alkaline Phosphatase 78 80 (38-126) U/L Total Protein 5.8 L 6.5 (6.3-8.2) g/dL Albumin 3.0 L 3.1 L (3.5-5.0) g/dL Current Medications Generic Name Dose Route Start Last Admin Trade Name Freq PRN Reason Stop Dose Admin Aspirin 325 mg 03/24/20 09:00 Aspirin PO DAILY JOSEPH Atenolol 25 mg 03/23/20 09:00 03/23/20 10:41 Atenolol 25 Mg Tab PO 25 mg BID JOSEPH Administration Atorvastatin Calcium 40 mg 03/23/20 21:00 Atorvastatin 40 Mg Tab PO HS JOSEPH Clopidogrel Bisulfate 75 mg 03/23/20 09:00 03/23/20 10:41 Plavix PO 75 mg DAILY JOSEPH Administration Heparin Sodium (Porcine) 0 unit 03/23/20 02:19 Heparin IV PER PROTOCOL PRN Low PTT Protocol Sodium Chloride 1,000 mls @ 100 mls/hr 03/23/20 01:45 03/23/20 02:46 Saline 0.9% IV 100 mls/hr .Q10H JOSEPH Administration Heparin Sodium/Sodium Chloride 250 mls @ 13.88 mls/hr 03/23/20 02:30 03/23/20 02:45 25,000 unit/ Sodium Chloride IV 18 units/kg/hr .Q18H1M JOSEPH 13.88 mls/hr Administration Protocol 18 UNITS/KG/HR Insulin Aspart 0 unit 03/23/20 07:30 03/23/20 10:41 Novolog SQ 3 unit ACHS JOSEPH Administration Protocol Nitroglycerin 0.4 mg 03/23/20 01:43 Nitrostat SUBLINGUAL Q5M PRN Chest Pain Sodium Bicarbonate 650 mg 03/23/20 11:30 Sodium Bicarbonate Tab 650 Mg Tab PO BID JOSEPH Intake and Output 03/22/20 03/23/20 03/23/20 22:59 06:59 14:59 Other: Weight 77.111 kg 03/23/20 10:09 03/23/20 10:09
[2020-03-23 12:53] LABS: Glucose,Whole Blood 135 mg/dL (75-99)
[2020-03-23] MEDS: SODIUM BICARBONATE TAB 650 MG TAB PO SCH ×2 (12:55→20:25)
--- NOTE | 2020-03-23 13:39 | US ---
EXAMINATION TYPE: US kidneys/renal and bladder DATE OF EXAM: 03/23/2020 COMPARISON: NONE CLINICAL HISTORY: rocio. ROCIO, exam done portable. EXAM MEASUREMENTS: Right Kidney: 12.5 x 6.7 x 5.5 cm Left Kidney: 11.6 x 5.6 x 5.3 cm Right Kidney: mild hydronephrosis, multiple echogenic foci scattered throughout Left Kidney: no hydronephrosis, multiple echogenic foci scattered throughout Bladder: wnl Bilateral Jets seen: left jet seen, right jet not seen There is no evidence for hydronephrosis at this point in time. No masses are identified. The urinar y bladder is anechoic. Bilateral ureteral jets are seen. IMPRESSION: Mild right-sided hydronephrosis. Small low nephrolithiasis.
--- NOTE | 2020-03-23 15:09 | P.PN ---
Progress Note - Text Progress Note Date: 03/23/20 Patient was seen and examined. Patient reports feeling intense fatigue and tiredness. She also reports shortness of breath and difficulty catching her breath. She denies any chest pain. States that this is been ongoing for the past week or so since her lithotripsy. She denies any dysuria. She denies any abdominal pain. She denies any nausea or vomiting. She denies any fever or chills. Patient appears to be in moderate distress and is dyspneic. She is saturating 100% on 4 L nasal cannula. She has decreased breath sounds bilaterally. Her abdomen is soft nontender to palpation. Acute hypoxic respiratory failure with history of pulmonary fibrosis/COPD Acute kidney injury Metabolic acidosis Patient is currently being treated with heparin drip for presumed PE. VQ scan was low probability for PE however chest x-ray is not clear and unreliable. Venous duplex was negative for DVT. Pulmonology has been consulted for further management. Her creatinine was 3.77. Renal ultrasound shows mild right-sided hydronephrosis and small nephrolithiasis. We will consult urology for further management. Obtain urinalysis with reflex to culture. Start Rocephin IV. Continue normal saline at 100 mL per hour. Avoid nephrotoxins. Repeat BMP tomorrow morning. She has been started on sodium bicarbonate supplementation by nephrology. Obtain lactic acid. Repeat BMP tomorrow morning. Follow nephrology consultation.
[2020-03-23 17:11] LABS: Glucose,Whole Blood 177 mg/dL (75-99)
[2020-03-23] MEDS ORDERED: WATER FOR INJECTION, STERILE 1,000 ML with SODIUM ACETATE 150 MEQ IV SCH ×2 (17:30)
[2020-03-23] MEDS: ACETAMINOPHEN TAB 325 MG TAB PO PRN ×2 (17:41→23:49)
[2020-03-23 17:55] LABS: Amorphous Sediment,Urine Rare /hpf; Appearance,Urine Cloudy (Clear); Bacteria,Urine Rare /hpf; Bilirubin,Urine Negative (Negative); Blood,Urine Moderate (Negative); Color,Urine Yellow; Glucose,Urine (UA) Negative (Negative); Ketones,Urine Negative (Negative); Leukocyte Esterase,Urine Large (Negative); Mucus,Urine Rare /hpf; Nitrite,Urine Negative (Negative); PH, Urine 5.5 (5.0-8.0); Protein,Urine 1+ (Negative); RBC,Urine 18 /hpf (0-5); Specific Gravity,Urine 1.013 (1.001-1.035); Squamous Epithelial Cell,Urine 3 /hpf (0-4); Urobilinogen,Urine <2.0 mg/dL (<2.0); WBC,Urine 83 /hpf (0-5)
[2020-03-23] MEDS: SODIUM BICARBONATE 150 MEQ in DEXTROSE 5% IN WATER 1,000 ML IV SCH ×2 (18:15)
[2020-03-23] MEDS: HEPARIN SODIUM,PORCINE 5,000 UNIT/ML 1 ML VIAL SQ SCH (18:17)
[2020-03-23] MEDS: ATORVASTATIN 40 MG TAB PO SCH (20:25)
--- NOTE | 2020-03-23 20:29 | CT ---
EXAMINATION TYPE: CT abdomen pelvis wo con DATE OF EXAM: 03/23/2020 COMPARISON: Yesterday HISTORY: Right sided flank pain. CT DLP: 645.4 mGycm Automated exposure control for dose reduction was used. There is mild subsegmental atelectasis at the lung bases. Heart size is normal. There is no pericardi al effusion. There is minimal pleural thickening at the lung bases. Liver spleen pancreas stomach appear normal. Bile ducts are not dilated. There are clips from cholecy stectomy. There is no adrenal mass. There is right-sided hydronephrosis with 7 mm calculus at the ureteral pelv ic junction. There are small calculi in the right kidney that measure up to 2 mm. There is 3 mm calcu william lower pole left kidney. There is no retroperitoneal adenopathy. Abdominal aorta is atheromatous. There is Gregg catheter in the bladder. Bladder is empty. Uterus is anteverted. There is no inguinal hernia. There is no free fluid in the pelvis. There is mild multilevel lumbar spondylotic changes. There is no mesenteric edema. There is no ascites or free air. There is no bowel obstruction. There a re a few sigmoid diverticula. I see no sign of diverticulitis. Bony pelvis is intact. Appendix is not seen. There is no sign of thickened appendix. IMPRESSION: Obstructing calculus at the right ureteropelvic junction with right-sided hydronephrosis. Bilateral s mall renal calculi. Obstruction unchanged compared to CT scan yesterday. Atelectasis at the lung base s unchanged compared to yesterday.
--- NOTE | 2020-03-23 20:44 | P.GSCN ---
History of Present Illness Consult date: 03/23/20 Reason for Consult: Right hydronephrosis History of present illness: The patient is a 69-year-old female transferred from [facility] early this morning for evaluation of increasing shortness of breath and a possible pulmonary embolus. She says that yesterday she had increasing shortness of breath and fell. She remained dizzy with increased wheezing. She initially went to [facility] where she was evaluated and a CT scan of the chest, abdomen and pelvis was obtained. There was concern in regard to possible pulmonary embolus and it was elected to transfer the patient for further evaluation. She has since undergone a VQ scan which showed a low probability of pulmonary embolus. Doppler study of her legs has shown no evidence of deep venous thrombosis. It was noted on her CT scan at [facility] that she had right hydronephrosis and a partially obstructive calculus in the proximal right ureter. BUN/Creatinine at the time of admission was 54/3.77. Bicarb was 16. I was asked to see the patient for further evaluation. The patient was originally evaluated by Dr. Stock at [facility] on 02/[address] scan showed an obstructive 5 x 8 x 10 mm calculus at the right ureteropelvic junction. BUN/creatinine on 02/25 were 22/1.65. She was treated with placement of a left double-J catheter. She underwent right ureteroscopy with lithotripsy and removal of the right double-J catheter on 03/23. She thinks that she was given Toradol or tramadol for treatment of her pain following the surgery. She says that she has passed some sand but no large fragments. She's had no gross hematuria. She has had some right flank pain but says that this has been much less than in February and has been tolerable. Her main complaint at the present is shortness of breath. Patient has a history of urolithiasis and I performed left ureteroscopy with lithotripsy for treatment of a left ureteral calculus in 2014. She's had no other problems with urolithiasis until last month. She denies a history of recent urinary tract infections.. Review of Systems - Constitutional Reports fatigue, Denies chills, Denies fever - Cardiovascular Denies chest pain, Denies leg edema, Denies shortness of breath - Respiratory Reports wheezing - Gastrointestinal Reports as per HPI - Genitourinary Genitourinary: Reports as per HPI, Denies dysuria, Denies hematuria - Neurological Reports weakness Past Medical History Past Medical History: Atrial Fibrillation, Asthma, CVA/TIA, Diabetes Mellitus Additional Past Medical History / Comment(s): Diabetes mellitus, history of paroxysmal atrial fibrillation, history of CVA, history of carotid artery disease and the patient is post carotid endarterectomy on the left 1 and on the right 2, history of nephrolithiasis requiring lithotripsy. Hyperlipidemia, hypertension and previous hospitalization for pneumonia on 08/13/2019 History of Any Multi-Drug Resistant Organisms: None Reported Past Surgical History: Cholecystectomy, Hysterectomy, Tonsillectomy, Tubal Ligation Additional Past Surgical History / Comment(s): Left ureteroscopy with lithotripsy-2014 Past Anesthesia/Blood Transfusion Reactions: No Reported Reaction Past Psychological History: Anxiety Smoking Status: Never smoker Past Alcohol Use History: None Reported Past Drug Use History: None Reported - Past Family History Father History Unknown: Yes Medications and Allergies Home Medications Medication Instructions Recorded Confirmed Type atenoloL [Tenormin] 25 mg PO BID 04/13/15 03/23/20 History metFORMIN HCL 1,000 mg PO BID 04/14/15 03/23/20 History QUEtiapine [SEROquel] 25 mg PO HS 08/14/19 03/23/20 History INSULIN LISPRO (HumaLOG) [humaLOG] 18 units SQ PCHS 03/23/20 03/23/20 History Insulin Detemir (Levemir) [Levemir] 46 unit SQ HS 03/23/20 03/23/20 History Allergies Allergy/AdvReac Type Severity Reaction Status Date / Time Sulfa (Sulfonamide Allergy Rash/Hives Verified 03/23/20 06:27 Antibiotics) Surgical - Exam Vital Signs Temp Pulse Resp BP Pulse Ox 99.1 F 83 20 110/52 97 03/22/20 23:55 03/22/20 23:55 03/22/20 23:55 03/22/20 23:55 03/22/20 23:55 - General well developed, moderate distress, obese - ENT no hearing loss - Neck no masses - Respiratory other (Mild shortness of breath with speaking) - Abdomen Abdomen: soft, non tender, no organomegaly Results - Labs 03/23/20 10:09 03/23/20 10:09 Abnormal Lab Results - Last 24 Hours (Table) 03/23/20 03/23/20 03/23/20 Range/Units 00:37 00:37 00:37 RBC 3.27 L (3.80-5.40) m/uL Hgb 10.1 L (11.4-16.0) gm/dL Hct 32.0 L (34.0-46.0) % Lymphocytes # 0.6 L (1.0-4.8) k/uL APTT 31.5 H (22.0-30.0) sec D-Dimer 4.50 H (<0.60) mg/L FEU Sodium 135 L (137-145) mmol/L Carbon Dioxide 16 L (22-30) mmol/L BUN 50 H (7-17) mg/dL Creatinine 3.39 H (0.52-1.04) mg/dL Glucose 52 L (74-99) mg/dL POC Glucose (mg/dL) (75-99) mg/dL Calcium 7.8 L (8.4-10.2) mg/dL Magnesium 1.4 L (1.6-2.3) mg/dL AST 46 H (14-36) U/L Troponin I (0.000-0.034) ng/mL Total Protein 5.8 L (6.3-8.2) g/dL Albumin 3.0 L (3.5-5.0) g/dL Urine Appearance (Clear) Urine Protein (Negative) Urine Blood (Negative) Ur Leukocyte Esterase (Negative) Urine RBC (0-5) /hpf Urine WBC (0-5) /hpf Amorphous Sediment (None) /hpf Urine Bacteria (None) /hpf Urine Mucus (None) /hpf 03/23/20 03/23/20 03/23/20 Range/Units 00:37 02:59 06:05 RBC (3.80-5.40) m/uL Hgb (11.4-16.0) gm/dL Hct (34.0-46.0) % Lymphocytes # (1.0-4.8) k/uL APTT (22.0-30.0) sec D-Dimer (<0.60) mg/L FEU Sodium (137-145) mmol/L Carbon Dioxide (22-30) mmol/L BUN (7-17) mg/dL Creatinine (0.52-1.04) mg/dL Glucose (74-99) mg/dL POC Glucose (mg/dL) 160 H 172 H (75-99) mg/dL Calcium (8.4-10.2) mg/dL Magnesium (1.6-2.3) mg/dL AST (14-36) U/L Troponin I 0.037 H* (0.000-0.034) ng/mL Total Protein (6.3-8.2) g/dL Albumin (3.5-5.0) g/dL Urine Appearance (Clear) Urine Protein (Negative) Urine Blood (Negative) Ur Leukocyte Esterase (Negative) Urine RBC (0-5) /hpf Urine WBC (0-5) /hpf Amorphous Sediment (None) /hpf Urine Bacteria (None) /hpf Urine Mucus (None) /hpf 03/23/20 03/23/20 03/23/20 Range/Units 10:09 10:09 10:09 RBC 3.16 L (3.80-5.40) m/uL Hgb 9.9 L (11.4-16.0) gm/dL Hct 31.1 L (34.0-46.0) % Lymphocytes # 0.4 L (1.0-4.8) k/uL APTT 79.5 H (22.0-30.0) sec D-Dimer (<0.60) mg/L FEU Sodium 134 L (137-145) mmol/L Carbon Dioxide 16 L (22-30) mmol/L BUN 54 H (7-17) mg/dL Creatinine 3.77 H (0.52-1.04) mg/dL Glucose 208 H (74-99) mg/dL POC Glucose (mg/dL) (75-99) mg/dL Calcium 7.8 L (8.4-10.2) mg/dL Magnesium (1.6-2.3) mg/dL AST 48 H (14-36) U/L Troponin I (0.000-0.034) ng/mL Total Protein (6.3-8.2) g/dL Albumin 3.1 L (3.5-5.0) g/dL Urine Appearance (Clear) Urine Protein (Negative) Urine Blood (Negative) Ur Leukocyte Esterase (Negative) Urine RBC (0-5) /hpf Urine WBC (0-5) /hpf Amorphous Sediment (None) /hpf Urine Bacteria (None) /hpf Urine Mucus (None) /hpf 03/23/20 03/23/20 03/23/20 Range/Units 10:38 12:51 17:07 RBC (3.80-5.40) m/uL Hgb (11.4-16.0) gm/dL Hct (34.0-46.0) % Lymphocytes # (1.0-4.8) k/uL APTT (22.0-30.0) sec D-Dimer (<0.60) mg/L FEU Sodium (137-145) mmol/L Carbon Dioxide (22-30) mmol/L BUN (7-17) mg/dL Creatinine (0.52-1.04) mg/dL Glucose (74-99) mg/dL POC Glucose (mg/dL) 226 H 135 H (75-99) mg/dL Calcium (8.4-10.2) mg/dL Magnesium (1.6-2.3) mg/dL AST (14-36) U/L Troponin I (0.000-0.034) ng/mL Total Protein (6.3-8.2) g/dL Albumin (3.5-5.0) g/dL Urine Appearance Cloudy H (Clear) Urine Protein 1+ H (Negative) Urine Blood Moderate H (Negative) Ur Leukocyte Esterase Large H (Negative) Urine RBC 18 H (0-5) /hpf Urine WBC 83 H (0-5) /hpf Amorphous Sediment Rare H (None) /hpf Urine Bacteria Rare H (None) /hpf Urine Mucus Rare H (None) /hpf 03/23/20 Range/Units 17:08 RBC (3.80-5.40) m/uL Hgb (11.4-16.0) gm/dL Hct (34.0-46.0) % Lymphocytes # (1.0-4.8) k/uL APTT (22.0-30.0) sec D-Dimer (<0.60) mg/L FEU Sodium (137-145) mmol/L Carbon Dioxide (22-30) mmol/L BUN (7-17) mg/dL Creatinine (0.52-1.04) mg/dL Glucose (74-99) mg/dL POC Glucose (mg/dL) 177 H (75-99) mg/dL Calcium (8.4-10.2) mg/dL Magnesium (1.6-2.3) mg/dL AST (14-36) U/L Troponin I (0.000-0.034) ng/mL Total Protein (6.3-8.2) g/dL Albumin (3.5-5.0) g/dL Urine Appearance (Clear) Urine Protein (Negative) Urine Blood (Negative) Ur Leukocyte Esterase (Negative) Urine RBC (0-5) /hpf Urine WBC (0-5) /hpf Amorphous Sediment (None) /hpf Urine Bacteria (None) /hpf Urine Mucus (None) /hpf Diabetes panel 03/23/20 03/23/20 Range/Units 00:37 10:09 Sodium 135 L 134 L (137-145) mmol/L Potassium 3.5 4.2 (3.5-5.1) mmol/L Chloride 106 105 (98-107) mmol/L Carbon Dioxide 16 L 16 L (22-30) mmol/L BUN 50 H 54 H (7-17) mg/dL Creatinine 3.39 H 3.77 H (0.52-1.04) mg/dL Glucose 52 L 208 H (74-99) mg/dL Calcium 7.8 L 7.8 L (8.4-10.2) mg/dL AST 46 H 48 H (14-36) U/L ALT 32 32 (4-34) U/L Alkaline Phosphatase 78 80 (38-126) U/L Total Protein 5.8 L 6.5 (6.3-8.2) g/dL Albumin 3.0 L 3.1 L (3.5-5.0) g/dL Calcium panel 03/23/20 03/23/20 Range/Units 00:37 10:09 Calcium 7.8 L 7.8 L (8.4-10.2) mg/dL Albumin 3.0 L 3.1 L (3.5-5.0) g/dL Pituitary panel 03/23/20 03/23/20 Range/Units 00:37 10:09 Sodium 135 L 134 L (137-145) mmol/L Potassium 3.5 4.2 (3.5-5.1) mmol/L Chloride 106 105 (98-107) mmol/L Carbon Dioxide 16 L 16 L (22-30) mmol/L BUN 50 H 54 H (7-17) mg/dL Creatinine 3.39 H 3.77 H (0.52-1.04) mg/dL Glucose 52 L 208 H (74-99) mg/dL Calcium 7.8 L 7.8 L (8.4-10.2) mg/dL Adrenal panel 03/23/20 03/23/20 Range/Units 00:37 10:09 Sodium 135 L 134 L (137-145) mmol/L Potassium 3.5 4.2 (3.5-5.1) mmol/L Chloride 106 105 (98-107) mmol/L Carbon Dioxide 16 L 16 L (22-30) mmol/L BUN 50 H 54 H (7-17) mg/dL Creatinine 3.39 H 3.77 H (0.52-1.04) mg/dL Glucose 52 L 208 H (74-99) mg/dL Calcium 7.8 L 7.8 L (8.4-10.2) mg/dL Total Bilirubin 0.8 0.6 (0.2-1.3) mg/dL AST 46 H 48 H (14-36) U/L ALT 32 32 (4-34) U/L Alkaline Phosphatase 78 80 (38-126) U/L Total Protein 5.8 L 6.5 (6.3-8.2) g/dL Albumin 3.0 L 3.1 L (3.5-5.0) g/dL - Imaging CT scan - abdomen: image reviewed Assessment and Plan (1) Hydronephrosis with obstructing calculus Narrative/Plan: I reviewed the CT scan which had been performed at [facility] yesterday. The patient has a 3.5 x 4.5 calculus fragment in the proximal right ureter with mild to moderate hydronephrosis. This is a fragment that remained following her ureteroscopy with lithotripsy on 03/17. The patient is not particularly uncomfortable due to the obstruction and has no evidence of urinary tract infection. Her current BUN and creatinine are elevated compared with levels obtained when she had acute right ureteral obstruction on 02/25. It is possible that at least a component of her acute renal failure is related to the use of Toradol and/or reduce fluid intake over the last several days. At least at this time I do not feel there is any urgent need for placement of a double-J catheter. If her BUN and creatinine improve with hydration then I do not feel that repeat imaging of the kidneys via ultrasound or CT scan is necessary in the next day or two. Current Visit: Yes Status: Acute Code(s): N13.2 - HYDRONEPHROSIS WITH RENAL AND URETERAL CALCULOUS OBSTRUCTION SNOMED Code(s): 55191446
[2020-03-23 20:48] LABS: Glucose,Whole Blood 339 mg/dL (75-99)
[2020-03-23 23:03] LABS: Glucose,Whole Blood 190 mg/dL (75-99)
[2020-03-23 23:19] LABS: ABG HCO3 16 mmol/L (21-25); ABG Oxygen Saturation 96.1 % (94-97); ABG PCO2 22 mmHg (35-45); ABG PH 7.46 (7.35-7.45); ABG PO2 77 mmHg (83-108); ABG TCO2 17 mmol/L (19-24); Allen Test Performed? Yes
--- NOTE | 2020-03-23 23:36 | XR ---
EXAMINATION TYPE: XR chest 1V portable DATE OF EXAM: 03/23/2020 COMPARISON: Today HISTORY: Respiratory distress TECHNIQUE: FINDINGS: There is some diffuse pulmonary interstitial edema. There is no definite pleural effusion. There are chest leads. Thoracic aorta is atheromatous. IMPRESSION: Increased pulmonary interstitial edema compared to exam this morning. This could be acute interstitial pneumonia. Heart failure is possible.
[2020-03-23 23:42] LABS: Calcium 7.9 mg/dL (8.4-10.2); Potassium 3.9 mmol/L (3.5-5.1)
[2020-03-23 23:49] LABS: Glucose,Whole Blood 182 mg/dL (75-99)
--- NOTE | 2020-03-23 23:59 | P.PN ---
Progress Note - Text Progress Note Date: 03/23/20 Notified by the RN regarding the patient's worsening tachypnea and hypoxia. Patient was examined at the bedside. She reported feeling short of breath but denied cough or chest pain. Denies urinary complaints. Vital signs: T 100.8, BP 134/65, RR 40, SpO2 97% on 6L NC, P 87/min General: Appears dyspneic, appears stated age Cardiovascular: S1/S2 wnl, no murmurs, rubs, or gallops Lungs: Scattered bilateral rhonchi with minimal bibasilar rales, no wheezing appreciated Abdominal: Soft, non-tender, non-distended, no guarding, rebound, or rigidity Skin: Warm, dry Extremities: No edema or contractures Psychiatric: Alert and oriented to person, place and time, appropriate affect Assessment/plan Shortness of breath, possibly secondary to underlying UTI sepsis vs Covid -Place patient on isolation -Discussed the case with the power truck driver on-call Dr. Burgess, who accepted the patient to medical ICU -Continue with ceftriaxone with supplemental oxygen -Tested for Covid -ABG and CXR reviewed
[2020-03-24] MEDS: HEPARIN SODIUM,PORCINE 5,000 UNIT/ML 1 ML VIAL SQ SCH ×4 (04:26→23:59)
[2020-03-24 05:46] LABS: Basophils % (A) 0 %; Eosinophils # (A) 0.1 k/uL (0-0.7); Eosinophils % (A) 1 %; HGB 9.9 gm/dL (11.4-16.0); Hypochromasia Moderate; Lymphocytes # (A) 0.5 k/uL (1.0-4.8); Lymphocytes % (A) 4 %; MCH 31.1 pg (25.0-35.0); MCHC 30.8 g/dL (31.0-37.0); MCV 100.9 fL (80.0-100.0); Macrocytosis Slight; Mean Platelet Volume 8.3; Monocytes # (A) 0.6 k/uL (0-1.0); Monocytes % (A) 4 %; Neutrophils # (A) 11.2 k/uL (1.3-7.7); Neutrophils % (A) 88 %; Platelet Count 237 k/uL (150-450); RBC 3.17 m/uL (3.80-5.40); RDW 14.2 % (11.5-15.5); WBC 12.7 k/uL (3.8-10.6)
[2020-03-24 05:55] LABS: Calcium 7.5 mg/dL (8.4-10.2); Magnesium 1.9 mg/dL (1.6-2.3); Potassium 4.1 mmol/L (3.5-5.1)
[2020-03-24] MEDS: SODIUM BICARBONATE 150 MEQ in DEXTROSE 5% IN WATER 1,000 ML IV SCH ×6 (06:27→19:51)
--- NOTE | 2020-03-24 07:27 | XR ---
EXAMINATION TYPE: XR chest 1V portable DATE OF EXAM: 03/24/2020 COMPARISON: Prior chest x-ray 03/23/2020 HISTORY: Shortness of breath TECHNIQUE: Single frontal view of the chest is obtained. FINDINGS: Patchy bibasilar density persists. There is no evident pneumothorax or pleural effusion. A nhi is dense. Heart size is stable. There are overlying cardiac leads. IMPRESSION: Possible basilar atelectasis versus pneumonia or edema
[2020-03-24 07:41] LABS: Glucose,Whole Blood 276 mg/dL (75-99)
[2020-03-24] MEDS: INSULIN ASPART (NovoLOG) 100 UNIT/ML VIAL SQ SCH ×4 (07:53→20:58)
[2020-03-24] MEDS: CLOPIDOGREL 75 MG TAB PO SCH (08:06)
[2020-03-24] MEDS: SODIUM BICARBONATE TAB 650 MG TAB PO SCH ×2 (08:06→20:58)
[2020-03-24] MEDS: ASPIRIN 81 MG PO SCH (08:07)
--- NOTE | 2020-03-24 08:11 | P.CNPUL ---
History of Present Illness Consult date: 03/23/20 Reason for consult: dyspnea History of present illness: 69-year-old female patient presented to the hospital because of generalized weakness and shortness of breath. She states that her condition got worse after she underwent a lithotripsy procedure last week. Since then, the patient's been feeling progressively more short of breath, more tired and she's been getting short of breath with limited amount of activity. No orthopnea. No paroxysmal nocturnal dyspnea. No swelling lower extremities. She initially went to [facility] where she was found to be hypoxic. Chest x-ray was within normal limits and the blood work showed an acute kidney injury. She was also found to have some elevation in troponins and she got transferred to our hospital. She came in to us on oxygen at 5 L per minute nasal cannula. She was started on IV heparin. Further workup was done and the patient was found to have a d-dimer of 4.5, a creatinine of 3.77, troponins were 0.034 0.03 respectively 2, proBNP level was 6460, and the white cell count was at 8.3 with a hemoglobin of 9.9. The chest x-ray showed interstitial pulmonary infiltrates bilateral along with cardiomegaly. No pleural effusion. No hilar masses. The Doppler of the lower extremity is a been negative for DVTs. The VQ scan came back negative or low probability for pulmonary embolism as there was some mesh defects in the upper lobes bilaterally. The patient is currently afebrile. She is currently on 4 L of oxygen by nasal cannula with a pulse is 99-100%. Her EKG shows normal sinus rhythm. Echocardiogram showed normal ejection fraction of 50-55%. Grade 1 diastolic dysfunction. Mild MR. No pericardial effusion. No evidence of any pulmonary hypertension. There is evidence of grade 1 diastolic dysfunction. Review of Systems Constitutional: Reports weakness Eyes: denies as per HPI, denies blurred vision, denies bulging eye, denies decreased vision, denies diplopia, denies discharge, denies dry eye, denies irritation, denies itching, denies pain, denies photophobia, denies loss of per ipheral vision, denies loss of vision, denies tunnel vision/blind spots Ears: deny: decreased hearing, ear discharge, earache, tinnitus Ears, nose, mouth and throat: Reports as per HPI Breasts: absent: as per HPI, change in shape, gynecomastia, masses, nipple discharge, pain, skin changes, swelling Cardiovascular: Reports decreased exercise tolerance, Reports dyspnea on exertion Respiratory: Reports dyspnea Gastrointestinal: Reports as per HPI Genitourinary: Reports as per HPI Menstruation: Reports as per HPI Musculoskeletal: Reports as per HPI Musculoskeletal: absent: ankle pain, ankle stiffness, ankle swelling Integumentary: Reports as per HPI Neurological: Reports as per HPI Psychiatric: Reports as per HPI Endocrine: Reports fatigue Hematologic/Lymphatic: Reports as per HPI Allergic/Immunologic: Reports as per HPI Past Medical History Past Medical History: Atrial Fibrillation, CVA/TIA, Diabetes Mellitus Additional Past Medical History / Comment(s): Diabetes mellitus, history of paroxysmal atrial fibrillation, history of CVA, history of carotid artery disease and the patient is post carotid endarterectomy on the left 1 and on the right 2, history of nephrolithiasis requiring lithotripsy. Hyperlipidemia, hypertension and previous hospitalization for pneumonia on 08/13/2019 History of Any Multi-Drug Resistant Organisms: None Reported Past Surgical History: Cholecystectomy, Hysterectomy, Tonsillectomy, Tubal Ligation Additional Past Surgical History / Comment(s): lithotripsy Past Anesthesia/Blood Transfusion Reactions: No Reported Reaction Past Psychological History: Anxiety Smoking Status: Never smoker Past Alcohol Use History: None Reported Past Drug Use History: None Reported - Past Family History Father History Unknown: Yes Medications and Allergies Home Medications Medication Instructions Recorded Confirmed Type atenoloL [Tenormin] 25 mg PO BID 04/13/15 03/23/20 History metFORMIN HCL 1,000 mg PO BID 04/14/15 03/23/20 History QUEtiapine [SEROquel] 25 mg PO HS 08/14/19 03/23/20 History INSULIN LISPRO (HumaLOG) [humaLOG] 18 units SQ PCHS 03/23/20 03/23/20 History Insulin Detemir (Levemir) [Levemir] 46 unit SQ HS 03/23/20 03/23/20 History Allergies Allergy/AdvReac Type Severity Reaction Status Date / Time Sulfa (Sulfonamide Allergy Rash/Hives Verified 03/23/20 06:27 Antibiotics) Physical Exam Vitals: Vital Signs Temp Pulse Pulse Resp BP BP Pulse Ox 03/23/20 12:00 99 F 86 20 134/59 100 03/23/20 11:57 98.9 F 79 19 118/63 98 03/23/20 05:59 98 F 76 20 105/81 98 03/23/20 04:08 66 20 112/56 96 03/23/20 02:58 18 L 20 103/50 96 03/23/20 01:43 73 19 99/47 96 03/22/20 23:55 99.1 F 83 20 110/52 97 Intake and Output 03/23/20 03/23/20 03/23/20 06:59 14:59 22:59 Intake Total 226.077 Output Total 0 0 Balance 226.077 0 Intake: Intake, IV Titration 126.077 Amount Heparin Sod,Pork in 0.45% 126.077 NaCl 25,000 unit In 0.45 % NaCl 1 250ml.bag @ 18 UNITS/KG/HR 13.88 mls/hr IV .Q18H1M [facility] Rx#: [id number] Oral 100 Output: Urine 0 0 Other: Weight 77.111 kg 77.111 kg The patient appeared well nourished and normally developed. Vital signs as documented. Head exam is unremarkable. No scleral icterus or corneal arcus noted. Neck is without jugular venous distension, thyromegaly, or carotid bruits. Carotid upstrokes are brisk bilaterally. Lungs are diminished in lung bases bilaterally along with some few crackles. Cardiac exam reveals the PMI to be normally sized and situated. Rhythm is regular. First and second heart sounds normal. No murmurs, rubs or gallops. Abdominal exam reveals normal bowel sounds, no masses, no organomegaly and no aortic enlargement. Extremities are nonedematous and both femoral and pedal pulses are normal.Examination of the skin revealed no evidence of significant rashes, suspicious appearing nevi or other concerning lesions.Neurologically, the patient is awake and alert and the patient does not have any focal neurological deficit. Cranial nerves are essentially intact. Results - Laboratory Findings CBC and BMP: 03/23/20 10:09 03/23/20 10:09 PT/INR, D-dimer PT 11.4 sec (9.0-12.0) 03/23/20 00:37 INR 1.1 (<1.2) 03/23/20 00:37 D-Dimer 4.50 mg/L FEU (<0.60) H 03/23/20 00:37 Abnormal lab findings: Abnormal Labs 03/23/20 03/23/20 03/23/20 00:37 00:37 00:37 RBC 3.27 L Hgb 10.1 L Hct 32.0 L Lymphocytes # 0.6 L APTT 31.5 H D-Dimer 4.50 H Sodium 135 L Carbon Dioxide 16 L BUN 50 H Creatinine 3.39 H Glucose 52 L POC Glucose (mg/dL) Calcium 7.8 L Magnesium 1.4 L AST 46 H Troponin I Total Protein 5.8 L Albumin 3.0 L 03/23/20 03/23/20 03/23/20 00:37 02:59 06:05 RBC Hgb Hct Lymphocytes # APTT D-Dimer Sodium Carbon Dioxide BUN Creatinine Glucose POC Glucose (mg/dL) 160 H 172 H Calcium Magnesium AST Troponin I 0.037 H* Total Protein Albumin 03/23/20 03/23/20 03/23/20 10:09 10:09 10:09 RBC 3.16 L Hgb 9.9 L Hct 31.1 L Lymphocytes # 0.4 L APTT 79.5 H D-Dimer Sodium 134 L Carbon Dioxide 16 L BUN 54 H Creatinine 3.77 H Glucose 208 H POC Glucose (mg/dL) Calcium 7.8 L Magnesium AST 48 H Troponin I Total Protein Albumin 3.1 L 03/23/20 03/23/20 10:38 12:51 RBC Hgb Hct Lymphocytes # APTT D-Dimer Sodium Carbon Dioxide BUN Creatinine Glucose POC Glucose (mg/dL) 226 H 135 H Calcium Magnesium AST Troponin I Total Protein Albumin - Diagnostic Findings Chest x-ray: image reviewed U/S of Legs: image reviewed Assessment and Plan Plan: 1 acute hypoxic respiratory failure in the setting of an acute kidney injury and possibly component of fluid overload. Chest x-ray shows cardiogram pulmonary vessel congestion. Underlying infectious pneumonia/pulmonary embolism/ILD is felt to be less likely. Currently on 4 L of oxygen by nasal cannula 2 acute kidney injury, under investigation 3 non-anion gap metabolic acidosis with a drop in the serum bicarb down to 16 4 normocytic anemia, chronic 5 history of nephrolithiasis post lithotripsy 6 diabetes mellitus type 2 7 hypertension 8 history of carotid artery disease with previous history of CVA. The patient has undergone bilateral endarterectomies 9 previous history of cardiac or pneumonia right-sided involving the right lung Plan Wean down the FiO2 as tolerated. Gentle hydration Ultrasound the kidneys was noted Monitor renal function May discontinue the IV heparin as there is no clear indication for pulmonary embolism Inserted Gregg catheter Obtain a CAT scan of the abdomen and pelvis without contrast looking for any kidney stones/hydronephrosis Put the patient a bicarb infusion IV Rocephin and Antibiotic coverage We'll continue to follow
[2020-03-24] MEDS: atenoloL 25 MG TAB PO SCH ×3 (08:28→22:31)
[2020-03-24] MEDS ORDERED: ASPIRIN 325 MG TAB PO SCH (09:00)
--- NOTE | 2020-03-24 09:31 | P.PN ---
Subjective patient seen in follow-up for acute kidney injury on chronic kidney disease. Renal function is stable. Creatinine 3.6 today. Urine output about 30-60 mL an hour. She is maintained on bicarb drip. No vomiting or diarrhea. hemodynamically stable. Vital signs are stable. General: The patient appeared well nourished and normally developed. HEENT: Head exam is unremarkable. Neck is without jugular venous distension. HEART: Rate and Rhythm are regular. ABDOMEN: no distention noted. EXTREMITITES: No edema. Objective - Vital Signs Vital signs: Vital Signs Temp 99.7 F H 03/24/20 08:00 Pulse 81 03/24/20 09:00 Resp 24 03/24/20 09:00 BP 110/59 03/24/20 09:00 Pulse Ox 93 L 03/24/20 09:00 Intake & Output 03/23/20 03/24/20 03/24/20 18:59 06:59 18:59 Intake Total 226.077 600 590 Output Total 0 250 150 Balance 226.077 350 440 Weight 77.111 kg Intake: IV 600 350 Dextrose 5% in Water 1, 600 300 000 ml @ 100 mls/hr IV . [id number] JOSEPH with Sodium Bicarb (1 Meq/ml) 150 ml Rx#:[id number] cefTRIAXone 1 gm In 50 Sodium Chloride 0.9% 50 ml @ 100 mls/hr IVPB Q24HR JOSEPH Rx#:[id number] Intake, IV Titration 126.077 Amount Heparin Sod,Pork in 0.45% 126.077 NaCl 25,000 unit In 0.45 % NaCl 1 250ml.bag @ 18 UNITS/KG/HR 13.88 mls/hr IV .Q18H1M [facility] Rx#: [id number] Oral 100 Tube Feeding 240 Output: Urine 0 250 150 Other: Voiding Method Indwelling Catheter Indwelling Catheter # Bowel Movements 1 - Labs CBC & Chem 7: 03/24/20 04:51 03/24/20 04:51 Labs: Abnormal Lab Results - Last 24 Hours (Table) 03/23/20 03/23/20 03/23/20 Range/Units 10:09 10:09 10:09 WBC (3.8-10.6) k/uL RBC 3.16 L (3.80-5.40) m/uL Hgb 9.9 L (11.4-16.0) gm/dL Hct 31.1 L (34.0-46.0) % MCV (80.0-100.0) fL MCHC (31.0-37.0) g/dL Neutrophils # (1.3-7.7) k/uL Lymphocytes # 0.4 L (1.0-4.8) k/uL APTT 79.5 H (22.0-30.0) sec ABG pH (7.35-7.45) ABG pCO2 (35-45) mmHg ABG pO2 (83-108) mmHg ABG HCO3 (21-25) mmol/L ABG Total CO2 (19-24) mmol/L Sodium 134 L (137-145) mmol/L Carbon Dioxide 16 L (22-30) mmol/L BUN 54 H (7-17) mg/dL Creatinine 3.77 H (0.52-1.04) mg/dL Glucose 208 H (74-99) mg/dL POC Glucose (mg/dL) (75-99) mg/dL Calcium 7.8 L (8.4-10.2) mg/dL AST 48 H (14-36) U/L Albumin 3.1 L (3.5-5.0) g/dL Triglycerides (<150) mg/dL HDL Cholesterol (40-60) mg/dL Urine Appearance (Clear) Urine Protein (Negative) Urine Blood (Negative) Ur Leukocyte Esterase (Negative) Urine RBC (0-5) /hpf Urine WBC (0-5) /hpf Amorphous Sediment (None) /hpf Urine Bacteria (None) /hpf Urine Mucus (None) /hpf 03/23/20 03/23/20 03/23/20 Range/Units 10:38 12:51 17:07 WBC (3.8-10.6) k/uL RBC (3.80-5.40) m/uL Hgb (11.4-16.0) gm/dL Hct (34.0-46.0) % MCV (80.0-100.0) fL MCHC (31.0-37.0) g/dL Neutrophils # (1.3-7.7) k/uL Lymphocytes # (1.0-4.8) k/uL APTT (22.0-30.0) sec ABG pH (7.35-7.45) ABG pCO2 (35-45) mmHg ABG pO2 (83-108) mmHg ABG HCO3 (21-25) mmol/L ABG Total CO2 (19-24) mmol/L Sodium (137-145) mmol/L Carbon Dioxide (22-30) mmol/L BUN (7-17) mg/dL Creatinine (0.52-1.04) mg/dL Glucose (74-99) mg/dL POC Glucose (mg/dL) 226 H 135 H (75-99) mg/dL Calcium (8.4-10.2) mg/dL AST (14-36) U/L Albumin (3.5-5.0) g/dL Triglycerides (<150) mg/dL HDL Cholesterol (40-60) mg/dL Urine Appearance Cloudy H (Clear) Urine Protein 1+ H (Negative) Urine Blood Moderate H (Negative) Ur Leukocyte Esterase Large H (Negative) Urine RBC 18 H (0-5) /hpf Urine WBC 83 H (0-5) /hpf Amorphous Sediment Rare H (None) /hpf Urine Bacteria Rare H (None) /hpf Urine Mucus Rare H (None) /hpf 03/23/20 03/23/20 03/23/20 Range/Units 17:08 20:43 23:01 WBC (3.8-10.6) k/uL RBC (3.80-5.40) m/uL Hgb (11.4-16.0) gm/dL Hct (34.0-46.0) % MCV (80.0-100.0) fL MCHC (31.0-37.0) g/dL Neutrophils # (1.3-7.7) k/uL Lymphocytes # (1.0-4.8) k/uL APTT (22.0-30.0) sec ABG pH (7.35-7.45) ABG pCO2 (35-45) mmHg ABG pO2 (83-108) mmHg ABG HCO3 (21-25) mmol/L ABG Total CO2 (19-24) mmol/L Sodium (137-145) mmol/L Carbon Dioxide (22-30) mmol/L BUN (7-17) mg/dL Creatinine (0.52-1.04) mg/dL Glucose (74-99) mg/dL POC Glucose (mg/dL) 177 H 339 H 190 H (75-99) mg/dL Calcium (8.4-10.2) mg/dL AST (14-36) U/L Albumin (3.5-5.0) g/dL Triglycerides (<150) mg/dL HDL Cholesterol (40-60) mg/dL Urine Appearance (Clear) Urine Protein (Negative) Urine Blood (Negative) Ur Leukocyte Esterase (Negative) Urine RBC (0-5) /hpf Urine WBC (0-5) /hpf Amorphous Sediment (None) /hpf Urine Bacteria (None) /hpf Urine Mucus (None) /hpf 03/23/20 03/23/20 03/23/20 Range/Units 23:12 23:12 23:48 WBC (3.8-10.6) k/uL RBC (3.80-5.40) m/uL Hgb (11.4-16.0) gm/dL Hct (34.0-46.0) % MCV (80.0-100.0) fL MCHC (31.0-37.0) g/dL Neutrophils # (1.3-7.7) k/uL Lymphocytes # (1.0-4.8) k/uL APTT (22.0-30.0) sec ABG pH 7.46 H (7.35-7.45) ABG pCO2 22 L (35-45) mmHg ABG pO2 77 L (83-108) mmHg ABG HCO3 16 L (21-25) mmol/L ABG Total CO2 17 L (19-24) mmol/L Sodium 135 L (137-145) mmol/L Carbon Dioxide 16 L (22-30) mmol/L BUN 58 H (7-17) mg/dL Creatinine 3.76 H (0.52-1.04) mg/dL Glucose 173 H (74-99) mg/dL POC Glucose (mg/dL) 182 H (75-99) mg/dL Calcium 7.9 L (8.4-10.2) mg/dL AST (14-36) U/L Albumin (3.5-5.0) g/dL Triglycerides (<150) mg/dL HDL Cholesterol (40-60) mg/dL Urine Appearance (Clear) Urine Protein (Negative) Urine Blood (Negative) Ur Leukocyte Esterase (Negative) Urine RBC (0-5) /hpf Urine WBC (0-5) /hpf Amorphous Sediment (None) /hpf Urine Bacteria (None) /hpf Urine Mucus (None) /hpf 03/24/20 03/24/20 03/24/20 Range/Units 04:51 04:51 07:39 WBC 12.7 H (3.8-10.6) k/uL RBC 3.17 L (3.80-5.40) m/uL Hgb 9.9 L (11.4-16.0) gm/dL Hct 32.0 L (34.0-46.0) % MCV 100.9 H (80.0-100.0) fL MCHC 30.8 L (31.0-37.0) g/dL Neutrophils # 11.2 H (1.3-7.7) k/uL Lymphocytes # 0.5 L (1.0-4.8) k/uL APTT (22.0-30.0) sec ABG pH (7.35-7.45) ABG pCO2 (35-45) mmHg ABG pO2 (83-108) mmHg ABG HCO3 (21-25) mmol/L ABG Total CO2 (19-24) mmol/L Sodium 133 L (137-145) mmol/L Carbon Dioxide 16 L (22-30) mmol/L BUN 58 H (7-17) mg/dL Creatinine 3.60 H (0.52-1.04) mg/dL Glucose 253 H (74-99) mg/dL POC Glucose (mg/dL) 276 H (75-99) mg/dL Calcium 7.5 L (8.4-10.2) mg/dL AST (14-36) U/L Albumin (3.5-5.0) g/dL Triglycerides 178 H (<150) mg/dL HDL Cholesterol 12 L (40-60) mg/dL Urine Appearance (Clear) Urine Protein (Negative) Urine Blood (Negative) Ur Leukocyte Esterase (Negative) Urine RBC (0-5) /hpf Urine WBC (0-5) /hpf Amorphous Sediment (None) /hpf Urine Bacteria (None) /hpf Urine Mucus (None) /hpf Microbiology - Last 24 Hours (Table) 03/23/20 17:07 Urine Culture - Preliminary Urine,Voided Assessment and Plan Plan: Assessment: 1. Acute kidney injury secondary to ATN secondary to hypotension and nonsteroidals. also concern for underlying obstructive uropathy. Noted to have right-sided hydronephrosis on CAT scan. creatinine stable at 3.6 today. 2. Chronic kidney disease stage III secondary to diabetic kidney disease with baseline creatinine 1.1-1.2 from August 2019. 3. Metabolic acidosis secondary to acute kidney injury and GI losses. Was also on metformin outpatient. partially compensatory for respiratory alkalosis. 4. Insulin-dependent diabetes mellitus. 5. Status post fall. 6. Right-sided hydronephrosis. Urology consulted. Currently has a Gregg catheter. Plan: maintain isotonic bicarbonate drip at 100 mL an hour. Avoid nephrotoxins. Continue to monitor renal function and urine output. follow-up cultures. Urology reccs pending.
--- NOTE | 2020-03-24 11:36 | P.PN ---
Subjective Progress Note Date: 03/24/20 69-year-old female patient presented to the hospital because of generalized weakness and shortness of breath. She states that her condition got worse after she underwent a lithotripsy procedure last week. Since then, the patient's been feeling progressively more short of breath, more tired and she's been getting short of breath with limited amount of activity. No orthopnea. No paroxysmal nocturnal dyspnea. No swelling lower extremities. She initially went to [facility] where she was found to be hypoxic. Chest x-ray was within normal limits and the blood work showed an acute kidney injury. She was also found to have some elevation in troponins and she got transferred to our [facility]. She came in to us on oxygen at 5 L per minute nasal cannula. She was started on IV heparin. Further workup was done and the patient was found to have a d-dimer of 4.5, a creatinine of 3.77, troponins were 0.034 0.03 respectively 2, proBNP level was 6460, and the white cell count was at 8.3 with a hemoglobin of 9.9. The chest x-ray showed interstitial pulmonary infiltrates bilateral along with cardiomegaly. No pleural effusion. No hilar masses. The Doppler of the lower extremity is a been negative for DVTs. The VQ scan came back negative or low probability for pulmonary embolism as there was some mesh defects in the upper lobes bilaterally. The patient is currently afebrile. She is currently on 4 L of oxygen by nasal cannula with a pulse is 99-100%. Her EKG shows normal sinus rhythm. Echocardiogram showed normal ejection fraction of 50-55%. Grade 1 diastolic dysfunction. Mild MR. No pericardial effusion. No evidence of any pulmonary hypertension. There is evidence of grade 1 diastolic dysfunction. On today's evaluation of 03/24/2020, the patient is doing well. She got transferred to the intensive care unit yesterday the patient was becoming a bit more short of breath yesterday. I was concerned of her respiratory status and the patient got transferred to the intensive care units. Note that I was also concerned about obstructive uropathy and urosepsis. The patient was given a CAT scan of the abdomen and pelvis and the patient was found to have a right kidney hydronephrosis and a Obstructing the right ureter. Urology consultation was obtained. Creatinine is still elevated at 3.6 with a BUN of 58 and the patient continues to be on a bicarb infusion with 150 mEq of sodium bicarbonate running at 100 mL an hour. The urine analysis and urine culture are still pending. Blood cultures still pending. Noted the patient was having episodes of fever throughout the night and the patient was covered with IV Rocephin. T-max was 103.1. Cover test was also done and the patient was placed in interrupted isolation. No nausea. No vomiting. No abdominal pain. No hematuria. Gregg cath is in place. She is currently on 6 L of oxygen by nasal cannula with a pulse of 74%. Objective - Vital Signs Vital signs: Vital Signs Temp 99.7 F H 03/24/20 08:00 Pulse 76 03/24/20 11:00 Resp 23 03/24/20 11:00 BP 96/49 03/24/20 11:00 Pulse Ox 93 L 03/24/20 11:00 Intake & Output 03/23/20 03/24/20 03/24/20 18:59 06:59 18:59 Intake Total 226.077 600 690 Output Total 0 250 185 Balance 226.077 350 505 Weight 77.111 kg Intake: IV 600 450 Dextrose 5% in Water 1, 600 400 000 ml @ 100 mls/hr IV . [id number] [facility] with Sodium Bicarb (1 Meq/ml) 150 ml Rx#:[id number] cefTRIAXone 1 gm In 50 Sodium Chloride 0.9% 50 ml @ 100 mls/hr IVPB Q24HR [facility] Rx#:[id number] Intake, IV Titration 126.077 Amount Heparin Sod,Pork in 0.45% 126.077 NaCl 25,000 unit In 0.45 % NaCl 1 250ml.bag @ 18 UNITS/KG/HR 13.88 mls/hr IV .Q18H1M [facility] Rx#: [id number] Oral 100 Tube Feeding 240 Output: Urine 0 250 185 Other: Voiding Method Indwelling Catheter Indwelling Catheter # Bowel Movements 1 - Exam The patient appeared well nourished and normally developed. Vital signs as do cumented. Head exam is unremarkable. No scleral icterus or corneal arcus noted. Neck is without jugular venous distension, thyromegaly, or carotid bruits. Carotid upstrokes are brisk bilaterally. Lungs are diminished in lung bases bilaterally along with some few crackles. Cardiac exam reveals the PMI to be normally sized and situated. Rhythm is regular. First and second heart sounds normal. No murmurs, rubs or gallops. Abdominal exam reveals normal bowel sounds, no masses, no organomegaly and no aortic enlargement. Extremities are nonedematous and both femoral and pedal pulses are normal. Examination of the skin revealed no evidence of significant rashes, suspicious appearing nevi or other concerning lesions.Neurologically, the patient is awake and alert and the patient does not have any focal neurological deficit. Cranial nerves are essentially intact. - Labs CBC & Chem 7: 03/24/20 04:51 03/24/20 04:51 Labs: Abnormal Lab Results - Last 24 Hours (Table) 03/23/20 03/23/20 03/23/20 Range/Units 12:51 17:07 17:08 WBC (3.8-10.6) k/uL RBC (3.80-5.40) m/uL Hgb (11.4-16.0) gm/dL Hct (34.0-46.0) % MCV (80.0-100.0) fL MCHC (31.0-37.0) g/dL Neutrophils # (1.3-7.7) k/uL Lymphocytes # (1.0-4.8) k/uL ABG pH (7.35-7.45) ABG pCO2 (35-45) mmHg ABG pO2 (83-108) mmHg ABG HCO3 (21-25) mmol/L ABG Total CO2 (19-24) mmol/L Sodium (137-145) mmol/L Carbon Dioxide (22-30) mmol/L BUN (7-17) mg/dL Creatinine (0.52-1.04) mg/dL Glucose (74-99) mg/dL POC Glucose (mg/dL) 135 H 177 H (75-99) mg/dL Calcium (8.4-10.2) mg/dL Triglycerides (<150) mg/dL HDL Cholesterol (40-60) mg/dL Urine Appearance Cloudy H (Clear) Urine Protein 1+ H (Negative) Urine Blood Moderate H (Negative) Ur Leukocyte Esterase Large H (Negative) Urine RBC 18 H (0-5) /hpf Urine WBC 83 H (0-5) /hpf Amorphous Sediment Rare H (None) /hpf Urine Bacteria Rare H (None) /hpf Urine Mucus Rare H (None) /hpf 03/23/20 03/23/20 03/23/20 Range/Units 20:43 23:01 23:12 WBC (3.8-10.6) k/uL RBC (3.80-5.40) m/uL Hgb (11.4-16.0) gm/dL Hct (34.0-46.0) % MCV (80.0-100.0) fL MCHC (31.0-37.0) g/dL Neutrophils # (1.3-7.7) k/uL Lymphocytes # (1.0-4.8) k/uL ABG pH (7.35-7.45) ABG pCO2 (35-45) mmHg ABG pO2 (83-108) mmHg ABG HCO3 (21-25) mmol/L ABG Total CO2 (19-24) mmol/L Sodium 135 L (137-145) mmol/L Carbon Dioxide 16 L (22-30) mmol/L BUN 58 H (7-17) mg/dL Creatinine 3.76 H (0.52-1.04) mg/dL Glucose 173 H (74-99) mg/dL POC Glucose (mg/dL) 339 H 190 H (75-99) mg/dL Calcium 7.9 L (8.4-10.2) mg/dL Triglycerides (<150) mg/dL HDL Cholesterol (40-60) mg/dL Urine Appearance (Clear) Urine Protein (Negative) Urine Blood (Negative) Ur Leukocyte Esterase (Negative) Urine RBC (0-5) /hpf Urine WBC (0-5) /hpf Amorphous Sediment (None) /hpf Urine Bacteria (None) /hpf Urine Mucus (None) /hpf 03/23/20 03/23/20 03/24/20 Range/Units 23:12 23:48 04:51 WBC (3.8-10.6) k/uL RBC (3.80-5.40) m/uL Hgb (11.4-16.0) gm/dL Hct (34.0-46.0) % MCV (80.0-100.0) fL MCHC (31.0-37.0) g/dL Neutrophils # (1.3-7.7) k/uL Lymphocytes # (1.0-4.8) k/uL ABG pH 7.46 H (7.35-7.45) ABG pCO2 22 L (35-45) mmHg ABG pO2 77 L (83-108) mmHg ABG HCO3 16 L (21-25) mmol/L ABG Total CO2 17 L (19-24) mmol/L Sodium 133 L (137-145) mmol/L Carbon Dioxide 16 L (22-30) mmol/L BUN 58 H (7-17) mg/dL Creatinine 3.60 H (0.52-1.04) mg/dL Glucose 253 H (74-99) mg/dL POC Glucose (mg/dL) 182 H (75-99) mg/dL Calcium 7.5 L (8.4-10.2) mg/dL Triglycerides 178 H (<150) mg/dL HDL Cholesterol 12 L (40-60) mg/dL Urine Appearance (Clear) Urine Protein (Negative) Urine Blood (Negative) Ur Leukocyte Esterase (Negative) Urine RBC (0-5) /hpf Urine WBC (0-5) /hpf Amorphous Sediment (None) /hpf Urine Bacteria (None) /hpf Urine Mucus (None) /hpf 03/24/20 03/24/20 Range/Units 04:51 07:39 WBC 12.7 H (3.8-10.6) k/uL RBC 3.17 L (3.80-5.40) m/uL Hgb 9.9 L (11.4-16.0) gm/dL Hct 32.0 L (34.0-46.0) % MCV 100.9 H (80.0-100.0) fL MCHC 30.8 L (31.0-37.0) g/dL Neutrophils # 11.2 H (1.3-7.7) k/uL Lymphocytes # 0.5 L (1.0-4.8) k/uL ABG pH (7.35-7.45) ABG pCO2 (35-45) mmHg ABG pO2 (83-108) mmHg ABG HCO3 (21-25) mmol/L ABG Total CO2 (19-24) mmol/L Sodium (137-145) mmol/L Carbon Dioxide (22-30) mmol/L BUN (7-17) mg/dL Creatinine (0.52-1.04) mg/dL Glucose (74-99) mg/dL POC Glucose (mg/dL) 276 H (75-99) mg/dL Calcium (8.4-10.2) mg/dL Triglycerides (<150) mg/dL HDL Cholesterol (40-60) mg/dL Urine Appearance (Clear) Urine Protein (Negative) Urine Blood (Negative) Ur Leukocyte Esterase (Negative) Urine RBC (0-5) /hpf Urine WBC (0-5) /hpf Amorphous Sediment (None) /hpf Urine Bacteria (None) /hpf Urine Mucus (None) /hpf Microbiology - Last 24 Hours (Table) 03/23/20 17:07 Urine Culture - Preliminary Urine,Voided Assessment and Plan Plan: 1 acute hypoxic respiratory failure in the setting of an acute kidney injury and possibly component of fluid overload. Chest x-ray shows cardiogram pulmonary vessel congestion. Underlying infectious pneumonia/pulmonary embolism/ILD is felt to be less likely. Currently on 6 L of oxygen by nasal cannula. The patient is having episodic fever. Pneumonia is felt to be less likely. Pulmonary embolism is felt to be less likely. The patient is having a covid 19 screening. 2 acute kidney injury, under investigation, the patient has obstructive uropathy with a renal stone obstructing the ureter with right kidney hydronephrosis, urologist on the case. 3 non-anion gap metabolic acidosis with a drop in the serum bicarb down to 16, the patient is currently on a bicarb infusion 4 normocytic anemia, chronic 5 history of nephrolithiasis post lithotripsy 6 diabetes mellitus type 2 7 hypertension 8 history of carotid artery disease with previous history of CVA. The patient has undergone bilateral endarterectomies 9 previous history of pneumonia right-sided involving the right lung 10 episodic fever currently under investigation. Cultures of still negative for now. Plan Continue bicarb infusion Awaiting urine cultures Awaiting blood cultures Urology regarding obstructive uropathy and ureteral calculus with hydronephrosis Continue IV Rocephin Check COVID 19 PCR by nasal swab Antibiotic coverage We'll continue to follow
[2020-03-24 11:47] LABS: Glucose,Whole Blood 277 mg/dL (75-99)
[2020-03-24] MEDS: ACETAMINOPHEN TAB 325 MG TAB PO PRN ×2 (12:50→21:02)
--- NOTE | 2020-03-24 13:09 | P.PN ---
Subjective This is Chio Clark PA-C dictating a progress note on this patient The patient was interviewed and examined by me as well as by Dr. Erickson Case discussed with Dr. Erickson and he agrees with the plan of care HPI/interval history Patient is a 69-year-old female with a history of diabetes, TIA, and carotid artery stenosis who presented with complaints of weakness fatigue and a fall at home. She had a recent lithotripsy and was found to be in acute renal failure. She has been short of breath and hypoxic. She is being ruled out for Covid. Patient seen and examined in the ICU. Resting in bed. Bedside telemetry shows sinus mechanism with heart rates in the 70s. Complains that she still feels weak. Denies any shortness of breath or chest discomfort currently. No cough. No dizziness or syncope. EXAMINATION Temperature 99.7F, pulse 76, respirations 23, blood pressure 96/49, oxygen saturation 93% on 6 L nasal cannula Patient seen and examined in the ICU, in no acute distress Heart is regular, no audible murmurs Lungs mildly diminished at the bases No elevated JVD No lower extremity edema REVIEW OF LABS, ECG WBC 12.7, hemoglobin 9.9, platelets 237, sodium 133, potassium 4.1, BUN 58, creatinine 3.6 Echocardiogram showed EF 50-55% IMPRESSION / ASSESSMENT: #1 shortness of breath and hypoxia, VQ scan showing low probability for PE, possible fluid overload, echocardiogram showing EF 50-55%, currently denying any chest discomfort or shortness of breath, patient being ruled out for Covid #2 acute kidney injury, recent lithotripsy, , concern for underlying show active uropathy, urology and nephrology following #3 abnormal troponin in the setting of worsening renal function #4 history of TIA #5 history of carotid stenosis status post carotid endarterectomy #6 diabetes PLAN: Continue current regimen Management of multiple other medical problems by primary care team and multiple consultants Likely outpatient workup for abnormal troponins once her kidney function improves Objective - Vital Signs Vital signs: Vital Signs Temp 99.7 F H 03/24/20 08:00 Pulse 76 03/24/20 11:00 Resp 23 03/24/20 11:00 BP 96/49 03/24/20 11:00 Pulse Ox 93 L 03/24/20 11:00 Intake & Output 0903/24/20 03/24/20 18:59 06:59 18:59 Intake Total 226.077 600 690 Output Total 0 250 185 Balance 226.077 350 505 Weight 77.111 kg Intake: IV 600 450 Dextrose 5% in Water 1, 600 400 000 ml @ 100 mls/hr IV . [id number] [facility] with Sodium Bicarb (1 Meq/ml) 150 ml Rx#:[id number] cefTRIAXone 1 gm In 50 Sodium Chloride 0.9% 50 ml @ 100 mls/hr IVPB Q24HR [facility] Rx#:[id number] Intake, IV Titration 126.077 Amount Heparin Sod,Pork in 0.45% 126.077 NaCl 25,000 unit In 0.45 % NaCl 1 250ml.bag @ 18 UNITS/KG/HR 13.88 mls/hr IV .Q18H1M [facility] Rx#: [id number] Oral 100 Tube Feeding 240 Output: Urine 0 250 185 Other: Voiding Method Indwelling Catheter Indwelling Catheter # Bowel Movements 1 - Labs CBC & Chem 7: 03/24/20 04:51 03/24/20 04:51 Labs: Abnormal Lab Results - Last 24 Hours (Table) 03/23/20 03/23/20 03/23/20 Range/Units 17:07 17:08 20:43 WBC (3.8-10.6) k/uL RBC (3.80-5.40) m/uL Hgb (11.4-16.0) gm/dL Hct (34.0-46.0) % MCV (80.0-100.0) fL MCHC (31.0-37.0) g/dL Neutrophils # (1.3-7.7) k/uL Lymphocytes # (1.0-4.8) k/uL ABG pH (7.35-7.45) ABG pCO2 (35-45) mmHg ABG pO2 (83-108) mmHg ABG HCO3 (21-25) mmol/L ABG Total CO2 (19-24) mmol/L Sodium (137-145) mmol/L Carbon Dioxide (22-30) mmol/L BUN (7-17) mg/dL Creatinine (0.52-1.04) mg/dL Glucose (74-99) mg/dL POC Glucose (mg/dL) 177 H 339 H (75-99) mg/dL Calcium (8.4-10.2) mg/dL Triglycerides (<150) mg/dL HDL Cholesterol (40-60) mg/dL Urine Appearance Cloudy H (Clear) Urine Protein 1+ H (Negative) Urine Blood Moderate H (Negative) Ur Leukocyte Esterase Large H (Negative) Urine RBC 18 H (0-5) /hpf Urine WBC 83 H (0-5) /hpf Amorphous Sediment Rare H (None) /hpf Urine Bacteria Rare H (None) /hpf Urine Mucus Rare H (None) /hpf 03/23/20 03/23/20 03/23/20 Range/Units 23:01 23:12 23:12 WBC (3.8-10.6) k/uL RBC (3.80-5.40) m/uL Hgb (11.4-16.0) gm/dL Hct (34.0-46.0) % MCV (80.0-100.0) fL MCHC (31.0-37.0) g/dL Neutrophils # (1.3-7.7) k/uL Lymphocytes # (1.0-4.8) k/uL ABG pH 7.46 H (7.35-7.45) ABG pCO2 22 L (35-45) mmHg ABG pO2 77 L (83-108) mmHg ABG HCO3 16 L (21-25) mmol/L ABG Total CO2 17 L (19-24) mmol/L Sodium 135 L (137-145) mmol/L Carbon Dioxide 16 L (22-30) mmol/L BUN 58 H (7-17) mg/dL Creatinine 3.76 H (0.52-1.04) mg/dL Glucose 173 H (74-99) mg/dL POC Glucose (mg/dL) 190 H (75-99) mg/dL Calcium 7.9 L (8.4-10.2) mg/dL Triglycerides (<150) mg/dL HDL Cholesterol (40-60) mg/dL Urine Appearance (Clear) Urine Protein (Negative) Urine Blood (Negative) Ur Leukocyte Esterase (Negative) Urine RBC (0-5) /hpf Urine WBC (0-5) /hpf Amorphous Sediment (None) /hpf Urine Bacteria (None) /hpf Urine Mucus (None) /hpf 03/23/20 03/24/20 03/24/20 Range/Units 23:48 04:51 04:51 WBC 12.7 H (3.8-10.6) k/uL RBC 3.17 L (3.80-5.40) m/uL Hgb 9.9 L (11.4-16.0) gm/dL Hct 32.0 L (34.0-46.0) % MCV 100.9 H (80.0-100.0) fL MCHC 30.8 L (31.0-37.0) g/dL Neutrophils # 11.2 H (1.3-7.7) k/uL Lymphocytes # 0.5 L (1.0-4.8) k/uL ABG pH (7.35-7.45) ABG pCO2 (35-45) mmHg ABG pO2 (83-108) mmHg ABG HCO3 (21-25) mmol/L ABG Total CO2 (19-24) mmol/L Sodium 133 L (137-145) mmol/L Carbon Dioxide 16 L (22-30) mmol/L BUN 58 H (7-17) mg/dL Creatinine 3.60 H (0.52-1.04) mg/dL Glucose 253 H (74-99) mg/dL POC Glucose (mg/dL) 182 H (75-99) mg/dL Calcium 7.5 L (8.4-10.2) mg/dL Triglycerides 178 H (<150) mg/dL HDL Cholesterol 12 L (40-60) mg/dL Urine Appearance (Clear) Urine Protein (Negative) Urine Blood (Negative) Ur Leukocyte Esterase (Negative) Urine RBC (0-5) /hpf Urine WBC (0-5) /hpf Amorphous Sediment (None) /hpf Urine Bacteria (None) /hpf Urine Mucus (None) /hpf 03/24/20 03/24/20 Range/Units 07:39 11:45 WBC (3.8-10.6) k/uL RBC (3.80-5.40) m/uL Hgb (11.4-16.0) gm/dL Hct (34.0-46.0) % MCV (80.0-100.0) fL MCHC (31.0-37.0) g/dL Neutrophils # (1.3-7.7) k/uL Lymphocytes # (1.0-4.8) k/uL ABG pH (7.35-7.45) ABG pCO2 (35-45) mmHg ABG pO2 (83-108) mmHg ABG HCO3 (21-25) mmol/L ABG Total CO2 (19-24) mmol/L Sodium (137-145) mmol/L Carbon Dioxide (22-30) mmol/L BUN (7-17) mg/dL Creatinine (0.52-1.04) mg/dL Glucose (74-99) mg/dL POC Glucose (mg/dL) 276 H 277 H (75-99) mg/dL Calcium (8.4-10.2) mg/dL Triglycerides (<150) mg/dL HDL Cholesterol (40-60) mg/dL Urine Appearance (Clear) Urine Protein (Negative) Urine Blood (Negative) Ur Leukocyte Esterase (Negative) Urine RBC (0-5) /hpf Urine WBC (0-5) /hpf Amorphous Sediment (None) /hpf Urine Bacteria (None) /hpf Urine Mucus (None) /hpf Microbiology - Last 24 Hours (Table) 03/23/20 17:07 Urine Culture - Preliminary Urine,Voided
--- NOTE | 2020-03-24 13:48 | P.PN ---
Progress Note - Text Progress Note Date: 03/24/20 The patient had increasing shortness of breath and was transferred to the intensive care unit yesterday afternoon. She had a temperature of 101.2 at noon today. Her main complaint continues to be shortness of breath and overall weakness. She denies any abdominal or flank pain. A Gregg catheter was inserted and is draining somewhat cloudy urine with sediment. White blood count today was 12,700. BUN/creatinine are essentially unchanged from yesterday at 58/3.6. Computed tomography scan of the abdomen and pelvis was repeated yesterday evening and continues to show mild to moderate right hydronephrosis secondary to a partially obstructive proximal right ureteral calculus measuring 4-5 mm in width and 7-8 mm in length. Preliminary blood culture from 03/22 at [facility] is growing yeast. The patient's overall condition is consistent with sepsis. She does have a small infiltrate at the base of the right lung on her CT scan and possibly a component of fluid overload. It's unclear whether the apparent fungemia is related to a urinary source. I will discuss the possibility of cystoscopy with placement of a double-J catheter with her audio video technician. Unfortunately the patient says that she had considerable pain associated with the double-J catheter prior to removal of it and week ago. I do not fell that her elevated creatinine is primarily related to the right hydronephrosis although it is a factor.
[2020-03-24] MEDS ORDERED: ANIDULAFUNGIN 200 MG in SODIUM CHLORIDE 0.9% 200 ML IVPB ONE (15:00)
[2020-03-24] MEDS ORDERED: oxyCODONE-APAP 5-325MG 1 EACH TAB PO STA (16:50)
[2020-03-24 16:56] LABS: Glucose,Whole Blood 254 mg/dL (75-99)
--- NOTE | 2020-03-24 17:39 | P.PN ---
Subjective Progress Note Date: 03/24/20 Patient was seen and examined. Overnight, patient became more dyspnea which required transfer to ICU. Patient complains of right-sided flank pain. She denies any chest pain, shortness breath or palpitations. No nausea or vomiting. No fever or chills. Objective - Vital Signs Vital signs: Vital Signs Temp 99.7 F H 03/24/20 13:00 Pulse 67 03/24/20 15:00 Resp 27 H 03/24/20 15:00 BP 103/47 03/24/20 15:00 Pulse Ox 93 L 03/24/20 15:00 Intake & Output 03/23/20 03/24/20 03/24/20 18:59 06:59 18:59 Intake Total 226.925 706 4250 Output Total 0 250 415 Balance 226.177 646 0515 Weight 77.111 kg Intake: IV 600 950 Dextrose 5% in Water 1, 600 900 000 ml @ 100 mls/hr IV . [id number] JOSEPH with Sodium Bicarb (1 Meq/ml) 150 ml Rx#:[id number] cefTRIAXone 1 gm In 50 Sodium Chloride 0.9% 50 ml @ 100 mls/hr IVPB Q24HR JOSEPH Rx#:[id number] Intake, IV Titration 126.077 Amount Heparin Sod,Pork in 0.45% 126.077 NaCl 25,000 unit In 0.45 % NaCl 1 250ml.bag @ 18 UNITS/KG/HR 13.88 mls/hr IV [id number] JOSEPH Rx#: [id number] Oral 100 345 Tube Feeding 240 Output: Urine 0 250 415 Other: Voiding Method Indwelling Catheter Indwelling Catheter # Bowel Movements 1 - Exam General: [non toxic], [no distress], [appears at stated age] Derm: [warm], [dry] Head: [atraumatic], [normocephalic], [symmetric] Eyes: [EOMI], [no lid lag], [anicteric sclera] Mouth: [no lip lesion], [mucus membranes moist] Cardiovascular: [S1S2 reg], [no murmur], [positive DP pulse bilateral], Lungs: [Decreased breath sounds bilateral], [no rhonchi, no rales] , [no accessory muscle use] Abdominal: [soft], [ nontender to palpation], [no guarding], [no appreciable organomegaly], right-sided CVA tenderness Ext: [no gross muscle atrophy], [no edema], [no contractures] Neuro: [no focal neuro deficits] Psych: [Alert], [oriented], [appropriate affect] - Labs CBC & Chem 7: 03/24/20 04:51 03/24/20 04:51 Labs: Abnormal Lab Results - Last 24 Hours (Table) 03/23/20 03/23/20 03/23/20 Range/Units 17:07 20:43 23:01 WBC (3.8-10.6) k/uL RBC (3.80-5.40) m/uL Hgb (11.4-16.0) gm/dL Hct (34.0-46.0) % MCV (80.0-100.0) fL MCHC (31.0-37.0) g/dL Neutrophils # (1.3-7.7) k/uL Lymphocytes # (1.0-4.8) k/uL ABG pH (7.35-7.45) ABG pCO2 (35-45) mmHg ABG pO2 (83-108) mmHg ABG HCO3 (21-25) mmol/L ABG Total CO2 (19-24) mmol/L Sodium (137-145) mmol/L Carbon Dioxide (22-30) mmol/L BUN (7-17) mg/dL Creatinine (0.52-1.04) mg/dL Glucose (74-99) mg/dL POC Glucose (mg/dL) 339 H 190 H (75-99) mg/dL Calcium (8.4-10.2) mg/dL Triglycerides (<150) mg/dL HDL Cholesterol (40-60) mg/dL Procalcitonin (0.02-0.09) ng/mL Urine Appearance Cloudy H (Clear) Urine Protein 1+ H (Negative) Urine Blood Moderate H (Negative) Ur Leukocyte Esterase Large H (Negative) Urine RBC 18 H (0-5) /hpf Urine WBC 83 H (0-5) /hpf Amorphous Sediment Rare H (None) /hpf Urine Bacteria Rare H (None) /hpf Urine Mucus Rare H (None) /hpf 03/23/20 03/23/20 03/23/20 Range/Units 23:12 23:12 23:48 WBC (3.8-10.6) k/uL RBC (3.80-5.40) m/uL Hgb (11.4-16.0) gm/dL Hct (34.0-46.0) % MCV (80.0-100.0) fL MCHC (31.0-37.0) g/dL Neutrophils # (1.3-7.7) k/uL Lymphocytes # (1.0-4.8) k/uL ABG pH 7.46 H (7.35-7.45) ABG pCO2 22 L (35-45) mmHg ABG pO2 77 L (83-108) mmHg ABG HCO3 16 L (21-25) mmol/L ABG Total CO2 17 L (19-24) mmol/L Sodium 135 L (137-145) mmol/L Carbon Dioxide 16 L (22-30) mmol/L BUN 58 H (7-17) mg/dL Creatinine 3.76 H (0.52-1.04) mg/dL Glucose 173 H (74-99) mg/dL POC Glucose (mg/dL) 182 H (75-99) mg/dL Calcium 7.9 L (8.4-10.2) mg/dL Triglycerides (<150) mg/dL HDL Cholesterol (40-60) mg/dL Procalcitonin (0.02-0.09) ng/mL Urine Appearance (Clear) Urine Protein (Negative) Urine Blood (Negative) Ur Leukocyte Esterase (Negative) Urine RBC (0-5) /hpf Urine WBC (0-5) /hpf Amorphous Sediment (None) /hpf Urine Bacteria (None) /hpf Urine Mucus (None) /hpf 03/24/20 03/24/20 03/24/20 Range/Units 04:51 04:51 04:51 WBC 12.7 H (3.8-10.6) k/uL RBC 3.17 L (3.80-5.40) m/uL Hgb 9.9 L (11.4-16.0) gm/dL Hct 32.0 L (34.0-46.0) % MCV 100.9 H (80.0-100.0) fL MCHC 30.8 L (31.0-37.0) g/dL Neutrophils # 11.2 H (1.3-7.7) k/uL Lymphocytes # 0.5 L (1.0-4.8) k/uL ABG pH (7.35-7.45) ABG pCO2 (35-45) mmHg ABG pO2 (83-108) mmHg ABG HCO3 (21-25) mmol/L ABG Total CO2 (19-24) mmol/L Sodium 133 L (137-145) mmol/L Carbon Dioxide 16 L (22-30) mmol/L BUN 58 H (7-17) mg/dL Creatinine 3.60 H (0.52-1.04) mg/dL Glucose 253 H (74-99) mg/dL POC Glucose (mg/dL) (75-99) mg/dL Calcium 7.5 L (8.4-10.2) mg/dL Triglycerides 178 H (<150) mg/dL HDL Cholesterol 12 L (40-60) mg/dL Procalcitonin 8.89 H (0.02-0.09) ng/mL Urine Appearance (Clear) Urine Protein (Negative) Urine Blood (Negative) Ur Leukocyte Esterase (Negative) Urine RBC (0-5) /hpf Urine WBC (0-5) /hpf Amorphous Sediment (None) /hpf Urine Bacteria (None) /hpf Urine Mucus (None) /hpf 03/24/20 03/24/20 03/24/20 Range/Units 07:39 11:45 16:54 WBC (3.8-10.6) k/uL RBC (3.80-5.40) m/uL Hgb (11.4-16.0) gm/dL Hct (34.0-46.0) % MCV (80.0-100.0) fL MCHC (31.0-37.0) g/dL Neutrophils # (1.3-7.7) k/uL Lymphocytes # (1.0-4.8) k/uL ABG pH (7.35-7.45) ABG pCO2 (35-45) mmHg ABG pO2 (83-108) mmHg ABG HCO3 (21-25) mmol/L ABG Total CO2 (19-24) mmol/L Sodium (137-145) mmol/L Carbon Dioxide (22-30) mmol/L BUN (7-17) mg/dL Creatinine (0.52-1.04) mg/dL Glucose (74-99) mg/dL POC Glucose (mg/dL) 276 H 277 H 254 H (75-99) mg/dL Calcium (8.4-10.2) mg/dL Triglycerides (<150) mg/dL HDL Cholesterol (40-60) mg/dL Procalcitonin (0.02-0.09) ng/mL Urine Appearance (Clear) Urine Protein (Negative) Urine Blood (Negative) Ur Leukocyte Esterase (Negative) Urine RBC (0-5) /hpf Urine WBC (0-5) /hpf Amorphous Sediment (None) /hpf Urine Bacteria (None) /hpf Urine Mucus (None) /hpf Microbiology - Last 24 Hours (Table) 03/23/20 17:07 Urine Culture - Preliminary Urine,Voided Assessment and Plan Assessment: Acute hypoxic respiratory failure with history of pulmonary fibrosis/COPD Urosepsis with obstructive uropathy with Acute kidney injury Metabolic acidosis Diabetes mellitus Hypertension VQ scan was low probability for PE and heparin drip has been discontinued. Venous duplex was negative for DVT. Pulmonology has been consulted for further management. Covid testing is pending. Pro-calcitonin is elevated. She'll be kept on supplemental O2 to maintain O2 saturation greater than 92%. Patient does meet sepsis criteria. She has a leukocytosis and fever. Urinalysis shows large leukocyte esterase. Continue Rocephin while waiting on urine culture and blood culture. Urology consulted for obstructing calculus in the right UPJ with right-sided hydronephrosis. Follow ID consultation. Of bicarb is 16. She has been started on oral and IV sodium bicarbonate supplementation by nephrology. Lactic acid is negative. Repeat BMP tomorrow morning. Plans to start insulin sliding-scale. Regular Accu-Cheks. Hypoglycemic precautions. Hold antihypertensive medication from home. [Patient admitted for hypoxic respiratory failure. Also found to have urosepsis. She is pending clinical improvement.]
[2020-03-24 20:54] LABS: Glucose,Whole Blood 325 mg/dL (75-99)
[2020-03-24] MEDS: ATORVASTATIN 40 MG TAB PO SCH (20:58)
[2020-03-24] MEDS: INSULIN DETEMIR (LEVEMIR) 100 UNIT/ML SYR SQ SCH (22:29)
--- NOTE | 2020-03-24 23:37 | P.CONS ---
History of Present Illness - Reason for Consult Consult date: 03/24/20 Yeast positive blood culture Requesting physician: Renu Borja - Chief Complaint Weakness and fall x 2 days - History of Present Illness Patient is 69 year female with a past medical history significant for right-sided renal stone and hydronephrosis for which patient did have ureteral stent placed by Dr. Stock apparently was removed about a week ago as the patient is complaining of pain associated with it patient was taken to [facility] ER yesterday after pending the patient did fell down twice because of weakness and the patient was noticed to be slightly confused while at [facility] patient did have workup and subsequent has been transferred to [facility] here blood culture drawn and to restrict back positive with yeast, infectious disease was consulted for further management of antibiotic therapy. Patient had become terrible generalized weakness poor energy denies having any headache or URI symptoms no chest pain or shortness of breath or cough did have pain on the right flank area more of a dull aching /10 and no radiation denies having any diarrhea, patient has been running a fever of 101-103F, did require fluid bolus and also support and she was also noticed to have significant jump in her creatinine CT of abdominal pelvis completed did shows some right ureteropelvic stone with right-sided hydronephrosis patient is currently be treated with Rocephin 1 g daily Review of Systems Positive point has been mentioned in the HPI rest of the systems are negative Past Medical History Past Medical History: Atrial Fibrillation, CVA/TIA, Diabetes Mellitus Additional Past Medical History / Comment(s): Diabetes mellitus, history of paroxysmal atrial fibrillation, history of CVA, history of carotid artery disease and the patient is post carotid endarterectomy on the left 1 and on the right 2, history of nephrolithiasis requiring lithotripsy. Hyperlipidemia, hypertension and previous hospitalization for pneumonia on 08/13/2019 History of Any Multi-Drug Resistant Organisms: None Reported Past Surgical History: Cholecystectomy, Hysterectomy, Tonsillectomy, Tubal Ligation Additional Past Surgical History / Comment(s): lithotripsy Past Anesthesia/Blood Transfusion Reactions: No Reported Reaction Past Psychological History: Anxiety Smoking Status: Never smoker Past Alcohol Use History: None Reported Past Drug Use History: None Reported - Past Family History Father History Unknown: Yes Medications and Allergies Home Medications Medication Instructions Recorded Confirmed Type atenoloL [Tenormin] 25 mg PO BID 04/13/15 03/23/20 History metFORMIN HCL 1,000 mg PO BID 04/14/15 03/23/20 History QUEtiapine [SEROquel] 25 mg PO HS 08/14/19 03/23/20 History INSULIN LISPRO (HumaLOG) [humaLOG] 18 units SQ [facility] 03/23/20 03/23/20 History Insulin Detemir (Levemir) [Levemir] 46 unit SQ [facility] 03/23/20 03/23/20 History Allergies Allergy/AdvReac Type Severity Reaction Status Date / Time Sulfa (Sulfonamide Allergy Rash/Hives Verified 03/23/20 06:27 Antibiotics) Physical Exam Vitals: Vital Signs Temp Pulse Resp BP Pulse Ox 03/24/20 23:00 68 18 111/50 94 L 03/24/20 22:00 71 17 111/51 92 L 03/24/20 21:00 77 27 H 105/58 93 L 03/24/20 20:38 91 L 03/24/20 20:00 101.5 F H 76 26 H 107/68 94 L 03/24/20 19:00 73 19 96/63 94 L 03/24/20 18:00 73 20 112/70 95 03/24/20 17:00 70 17 96/65 93 L 03/24/20 16:00 97.9 F 66 19 102/49 94 L 03/24/20 15:00 67 27 H 103/47 93 L 03/24/20 14:00 77 15 93/44 93 L 03/24/20 13:00 99.7 F H 78 22 96/70 94 L 03/24/20 12:00 101.2 F H 79 18 106/54 93 L 03/24/20 11:00 76 23 96/49 93 L 03/24/20 10:00 73 22 120/65 93 L 03/24/20 09:00 81 24 110/59 93 L 03/24/20 08:00 99.7 F H 90 21 119/54 94 L 03/24/20 07:00 76 26 H 104/35 94 L 03/24/20 06:00 97.9 F 75 26 H 118/61 95 03/24/20 05:00 76 22 109/60 94 L 03/24/20 04:00 98.8 F 73 20 126/62 94 L 03/24/20 03:00 74 19 110/52 95 03/24/20 02:00 78 19 105/51 95 03/24/20 01:00 80 20 126/49 89 L 03/24/20 00:00 99.8 F H 89 29 H 129/51 95 Intake and Output 03/24/20 03/24/20 03/25/20 14:59 22:59 06:59 Intake Total 1435 1120 100 Output Total 355 275 15 Balance 1080 845 85 Intake: IV 850 1000 100 Anidulafungin 200 mg In 200 Sodium Chloride 0.9% 200 ml @ 84 mls/hr IVPB ONCE ONE Rx#:[id number] Dextrose 5% in Water 1, 800 800 100 000 ml @ 100 mls/hr IV . [id number] JOSEPH with Sodium Bicarb (1 Meq/ml) 150 ml Rx#:[id number] cefTRIAXone 1 gm In 50 Sodium Chloride 0.9% 50 ml @ 100 mls/hr IVPB Q24HR JOSEPH Rx#:[id number] Oral 345 120 Tube Feeding 240 Output: Urine 355 275 15 Other: Voiding Method Indwelling Catheter Indwelling Catheter GENERAL DESCRIPTION: An elderly female lying in bed, no distress. No tachypnea or accessory muscle of respiration use. HEENT: Shows Pallor , no scleral icterus. Oral mucous membrane is dry. No pharyngeal erythema or thrush NECK: Trachea central, no thyromegaly. LUNGS: Unlabored breathing. Decreased breaths in the bases. No wheeze or crackle. HEART: S1, S2, regular rate and rhythm. No loud murmur ABDOMEN: Soft, right flank tenderness , guarding or rigidity, no organomegaly EXTREMITIES: No edema of feet. SKIN: No rash, no masses palpable. NEUROLOGICAL: The patient is awake, alert, oriented x3, mood and affect normal. Results CBC & Chem 7: 03/24/20 04:51 03/24/20 04:51 Labs: Abnormal Lab Results - Last 24 Hours (Table) 03/23/20 03/23/20 03/23/20 Range/Units 23:12 23:12 23:48 WBC (3.8-10.6) k/uL RBC (3.80-5.40) m/uL Hgb (11.4-16.0) gm/dL Hct (34.0-46.0) % MCV (80.0-100.0) fL MCHC (31.0-37.0) g/dL Neutrophils # (1.3-7.7) k/uL Lymphocytes # (1.0-4.8) k/uL ABG pH 7.46 H (7.35-7.45) ABG pCO2 22 L (35-45) mmHg ABG pO2 77 L (83-108) mmHg ABG HCO3 16 L (21-25) mmol/L ABG Total CO2 17 L (19-24) mmol/L Sodium 135 L (137-145) mmol/L Carbon Dioxide 16 L (22-30) mmol/L BUN 58 H (7-17) mg/dL Creatinine 3.76 H (0.52-1.04) mg/dL Glucose 173 H (74-99) mg/dL POC Glucose (mg/dL) 182 H (75-99) mg/dL Calcium 7.9 L (8.4-10.2) mg/dL Triglycerides (<150) mg/dL HDL Cholesterol (40-60) mg/dL Procalcitonin (0.02-0.09) ng/mL 03/24/20 03/24/20 03/24/20 Range/Units 04:51 04:51 04:51 WBC 12.7 H (3.8-10.6) k/uL RBC 3.17 L (3.80-5.40) m/uL Hgb 9.9 L (11.4-16.0) gm/dL Hct 32.0 L (34.0-46.0) % MCV 100.9 H (80.0-100.0) fL MCHC 30.8 L (31.0-37.0) g/dL Neutrophils # 11.2 H (1.3-7.7) k/uL Lymphocytes # 0.5 L (1.0-4.8) k/uL ABG pH (7.35-7.45) ABG pCO2 (35-45) mmHg ABG pO2 (83-108) mmHg ABG HCO3 (21-25) mmol/L ABG Total CO2 (19-24) mmol/L Sodium 133 L (137-145) mmol/L Carbon Dioxide 16 L (22-30) mmol/L BUN 58 H (7-17) mg/dL Creatinine 3.60 H (0.52-1.04) mg/dL Glucose 253 H (74-99) mg/dL POC Glucose (mg/dL) (75-99) mg/dL Calcium 7.5 L (8.4-10.2) mg/dL Triglycerides 178 H (<150) mg/dL HDL Cholesterol 12 L (40-60) mg/dL Procalcitonin 8.89 H (0.02-0.09) ng/mL 03/24/20 03/24/20 03/24/20 Range/Units 07:39 11:45 16:54 WBC (3.8-10.6) k/uL RBC (3.80-5.40) m/uL Hgb (11.4-16.0) gm/dL Hct (34.0-46.0) % MCV (80.0-100.0) fL MCHC (31.0-37.0) g/dL Neutrophils # (1.3-7.7) k/uL Lymphocytes # (1.0-4.8) k/uL ABG pH (7.35-7.45) ABG pCO2 (35-45) mmHg ABG pO2 (83-108) mmHg ABG HCO3 (21-25) mmol/L ABG Total CO2 (19-24) mmol/L Sodium (137-145) mmol/L Carbon Dioxide (22-30) mmol/L BUN (7-17) mg/dL Creatinine (0.52-1.04) mg/dL Glucose (74-99) mg/dL POC Glucose (mg/dL) 276 H 277 H 254 H (75-99) mg/dL Calcium (8.4-10.2) mg/dL Triglycerides (<150) mg/dL HDL Cholesterol (40-60) mg/dL Procalcitonin (0.02-0.09) ng/mL 03/24/20 Range/Units 20:52 WBC (3.8-10.6) k/uL RBC (3.80-5.40) m/uL Hgb (11.4-16.0) gm/dL Hct (34.0-46.0) % MCV (80.0-100.0) fL MCHC (31.0-37.0) g/dL Neutrophils # (1.3-7.7) k/uL Lymphocytes # (1.0-4.8) k/uL ABG pH (7.35-7.45) ABG pCO2 (35-45) mmHg ABG pO2 (83-108) mmHg ABG HCO3 (21-25) mmol/L ABG Total CO2 (19-24) mmol/L Sodium (137-145) mmol/L Carbon Dioxide (22-30) mmol/L BUN (7-17) mg/dL Creatinine (0.52-1.04) mg/dL Glucose (74-99) mg/dL POC Glucose (mg/dL) 325 H (75-99) mg/dL Calcium (8.4-10.2) mg/dL Triglycerides (<150) mg/dL HDL Cholesterol (40-60) mg/dL Procalcitonin (0.02-0.09) ng/mL Microbiology - Last 24 Hours (Table) 03/23/20 17:07 Urine Culture - Preliminary Urine,Voided Group D Enterococcus 03/23/20 15:07 Blood Culture - Preliminary Blood No Growth after 24 hours Assessment and Plan Assessment: 1- patient presented to hospital with sepsis in this patient who did have a fever tachycardia and elevated lactic acid positive now with evidence of candidemia and right-sided hydronephrosis in this patient who did have history of ureteral stent placement and recent removal likely premature removal of the stent as the patient still have a stone and right-sided hydronephrosis with evidence of candidemia source likely urinary 2- patient with renal insufficiency her risk of nephrotoxicity (1) Sepsis Current Visit: Yes Status: Acute Code(s): A41.9 - SEPSIS, UNSPECIFIED ORGANISM SNOMED Code(s): 10783660 (2) Candidemia Current Visit: Yes Status: Acute Code(s): B37.7 - CANDIDAL SEPSIS SNOMED Code(s): 155718940 Plan: 1- blood cultures will be repeated to document clearance 2- we will add Eraxis 200 mg 1 followed by 100 mg daily 3- patient will benefit from right ureter stent placement for relief of hydronephrosis and let the infected kidney drained We will follow on clinical condition and cultures to further adjust medication if needed Thank you for this consultation will follow this patient with you
[2020-03-24] MEDS: AMPICILLIN-SULBACTAM 3 GM in SODIUM CHLORIDE 0.9% 100 ML IVPB SCH (23:58)
[2020-03-25 03:00] LABS: Glucose,Whole Blood 253 mg/dL (75-99)
[2020-03-25] MEDS: ACETAMINOPHEN TAB 325 MG TAB PO PRN (04:10)
[2020-03-25 05:29] LABS: Basophils % (A) 0 %; Eosinophils # (A) 0.2 k/uL (0-0.7); Eosinophils % (A) 2 %; HCT 27.4 % (34.0-46.0); HGB 8.7 gm/dL (11.4-16.0); Lymphocytes # (A) 0.5 k/uL (1.0-4.8); Lymphocytes % (A) 5 %; MCH 30.5 pg (25.0-35.0); MCHC 31.6 g/dL (31.0-37.0); MCV 96.5 fL (80.0-100.0); Mean Platelet Volume 8.3; Monocytes # (A) 0.3 k/uL (0-1.0); Monocytes % (A) 3 %; Neutrophils # (A) 8.1 k/uL (1.3-7.7); Neutrophils % (A) 88 %; Platelet Count 220 k/uL (150-450); RBC 2.84 m/uL (3.80-5.40); RDW 14.4 % (11.5-15.5); WBC 9.2 k/uL (3.8-10.6)
[2020-03-25 05:39] LABS: Albumin 2.5 g/dL (3.5-5.0); Calcium 7.1 mg/dL (8.4-10.2); Potassium 3.2 mmol/L (3.5-5.1); Total Bilirubin 0.4 mg/dL (0.2-1.3); Total Protein 5.2 g/dL (6.3-8.2)
[2020-03-25] MEDS: POTASSIUM CHLORIDE 10 MEQ in WATER FOR INJECTION 1 100ML.BAG IVPB SCH ×4 (06:23→11:49)
[2020-03-25] MEDS: SODIUM BICARBONATE 150 MEQ in DEXTROSE 5% IN WATER 1,000 ML IV SCH ×2 (06:24)
[2020-03-25 06:29] LABS: Glucose,Whole Blood 253 mg/dL (75-99)
[2020-03-25] MEDS: INSULIN ASPART (NovoLOG) 100 UNIT/ML VIAL SQ SCH ×7 (06:30→20:18)
[2020-03-25] MEDS: HEPARIN SODIUM,PORCINE 5,000 UNIT/ML 1 ML VIAL SQ SCH ×3 (08:04→23:17)
--- NOTE | 2020-03-25 08:11 | XR ---
EXAMINATION TYPE: XR chest 1V portable DATE OF EXAM: 03/25/2020 CLINICAL HISTORY: Shortness of breath TECHNIQUE: Semiupright portable view of the chest COMPARISON: 03/24/2020 chest radiograph FINDINGS: The cardiomediastinal silhouette is within normal limits for size. Coarsened interstitial markings may represent pulmonary edema. Increased small bilateral pleural effusions. No pneumothorax. The osseous structures are intact. IMPRESSION: Coarsened interstitial markings may represent pulmonary edema. Increased small bilateral pleural effusions.
[2020-03-25] MEDS ORDERED: FUROSEMIDE 10 MG/ML 4 ML VIAL IV STA (08:24)
[2020-03-25] MEDS: ANIDULAFUNGIN 100 MG in SODIUM CHLORIDE 0.9% 100 ML IVPB SCH (08:53)
[2020-03-25] MEDS ORDERED: LIDOCAINE 1% INJ 10MG/ML (20 ML MDV) ONE (09:07)
[2020-03-25] MEDS ORDERED: LACTATED RINGERS 1,000 ML IV ONE (09:07)
[2020-03-25] MEDS ORDERED: PROPOFOL 10 MG/ML 20 ML VIAL IV ONE (09:07)
--- NOTE | 2020-03-25 09:24 | P.PN ---
Subjective patient seen in follow-up for acute kidney injury on chronic kidney disease. Renal function is slightly improved. Creatinine 3.42 today. Urine output about 30-60 mL an hour. She is maintained on bicarb drip. No vomiting or diarrhea. hemodynamically stable. Vital signs are stable. General: The patient appeared well nourished and normally developed. HEENT: Head exam is unremarkable. Neck is without jugular venous distension. HEART: Rate and Rhythm are regular. ABDOMEN: no distention noted. EXTREMITITES: No edema. Objective - Vital Signs Vital signs: Vital Signs Temp 98.5 F 03/25/20 08:00 Pulse 67 03/25/20 09:00 Resp 18 03/25/20 09:00 BP 104/42 03/25/20 09:00 Pulse Ox 94 L 03/25/20 09:00 Intake & Output 03/24/20 03/25/20 03/25/20 18:59 06:59 18:59 Intake Total 2155 1200 450 Output Total 515 340 137 Balance 1640 860 313 Weight 83.7 kg Intake: IV 1450 1200 350 Anidulafungin 200 mg In 200 100 Sodium Chloride 0.9% 200 ml @ 84 mls/hr IVPB ONCE ONE Rx#:[id number] Dextrose 5% in Water 1, 1200 1200 200 000 ml @ 100 mls/hr IV . [id number] JOSEPH with Sodium Bicarb (1 Meq/ml) 150 ml Rx#:[id number] Sodium Chloride 0.9% 1, 50 000 ml @ 50 mls/hr IV . Q20H JOSEPH Rx#:[id number] cefTRIAXone 1 gm In 50 Sodium Chloride 0.9% 50 ml @ 100 mls/hr IVPB Q24HR JOSEPH Rx#:[id number] Intake, IV Titration 100 Amount Potassium Chloride 10 meq 100 In Water For Injection 1 100ml.bag @ 100 mls/hr IVPB Q1HR JOSEPH Rx#: [id number] Oral 465 Tube Feeding 240 Output: Urine 515 340 137 Other: Voiding Method Indwelling Catheter Indwelling Catheter Indwelling Catheter - Labs CBC & Chem 7: 03/25/20 04:47 03/25/20 04:47 Labs: Abnormal Lab Results - Last 24 Hours (Table) 03/24/20 03/24/20 03/24/20 Range/Units 04:51 11:45 16:54 RBC (3.80-5.40) m/uL Hgb (11.4-16.0) gm/dL Hct (34.0-46.0) % Neutrophils # (1.3-7.7) k/uL Lymphocytes # (1.0-4.8) k/uL Sodium (137-145) mmol/L Potassium (3.5-5.1) mmol/L Chloride (98-107) mmol/L BUN (7-17) mg/dL Creatinine (0.52-1.04) mg/dL Glucose (74-99) mg/dL POC Glucose (mg/dL) 277 H 254 H (75-99) mg/dL Calcium (8.4-10.2) mg/dL AST (14-36) U/L Total Protein (6.3-8.2) g/dL Albumin (3.5-5.0) g/dL Procalcitonin 8.89 H (0.02-0.09) ng/mL 03/24/20 03/25/20 03/25/20 Range/Units 20:52 02:58 04:47 RBC 2.84 L (3.80-5.40) m/uL Hgb 8.7 L (11.4-16.0) gm/dL Hct 27.4 L (34.0-46.0) % Neutrophils # 8.1 H (1.3-7.7) k/uL Lymphocytes # 0.5 L (1.0-4.8) k/uL Sodium (137-145) mmol/L Potassium (3.5-5.1) mmol/L Chloride (98-107) mmol/L BUN (7-17) mg/dL Creatinine (0.52-1.04) mg/dL Glucose (74-99) mg/dL POC Glucose (mg/dL) 325 H 253 H (75-99) mg/dL Calcium (8.4-10.2) mg/dL AST (14-36) U/L Total Protein (6.3-8.2) g/dL Albumin (3.5-5.0) g/dL Procalcitonin (0.02-0.09) ng/mL 03/25/20 03/25/20 Range/Units 04:47 06:26 RBC (3.80-5.40) m/uL Hgb (11.4-16.0) gm/dL Hct (34.0-46.0) % Neutrophils # (1.3-7.7) k/uL Lymphocytes # (1.0-4.8) k/uL Sodium 131 L (137-145) mmol/L Potassium 3.2 L (3.5-5.1) mmol/L Chloride 93 L (98-107) mmol/L BUN 59 H (7-17) mg/dL Creatinine 3.42 H (0.52-1.04) mg/dL Glucose 233 H (74-99) mg/dL POC Glucose (mg/dL) 253 H (75-99) mg/dL Calcium 7.1 L (8.4-10.2) mg/dL AST 49 H (14-36) U/L Total Protein 5.2 L (6.3-8.2) g/dL Albumin 2.5 L (3.5-5.0) g/dL Procalcitonin (0.02-0.09) ng/mL Microbiology - Last 24 Hours (Table) 03/23/20 15:07 Blood Culture - Final Blood 03/23/20 23:12 Blood Culture - Preliminary Blood No Growth after 24 hours 03/23/20 17:07 Urine Culture - Preliminary Urine,Voided Group D Enterococcus Assessment and Plan Plan: Assessment: 1. Acute kidney injury secondary to ATN secondary to hypotension and nonsteroidals. also concern for underlying obstructive uropathy. Noted to have right-sided hydronephrosis on CAT scan. creatinine stable at 3.42 today. 2. Chronic kidney disease stage III secondary to diabetic kidney disease with baseline creatinine 1.1-1.2 from August 2019. 3. Metabolic acidosis secondary to acute kidney injury and GI losses. Was also on metformin outpatient. partially compensatory for respiratory alkalosis. resolved. 4. Insulin-dependent diabetes mellitus. 5. Status post fall. 6. Right-sided hydronephrosis. scheduled for cystoscopy with stent placement today. 7. UTI with urine culture positive for group D enterococcus maintained on antibiotics. 8. Fungemia maintained on antifungal. Plan: discontinue bicarbonate drip. Lasix 40 mg IV once today. Potassium being replaced. Avoid nephrotoxins. Continue to monitor renal function and urine output.
--- NOTE | 2020-03-25 09:42 | P.OP ---
Date of Procedure: 03/25/20 Preoperative Diagnosis: Right hydronephrosis secondary to obstructive ureteral calculus Postoperative Diagnosis: Right hydronephrosis secondary to obstructive ureteral calculus Procedure(s) Performed: Cystoscopy and placement of right double-J catheter Anesthesia: MAC Surgeon: Macario Camp Estimated Blood Loss (ml): 0 Pathology: none sent Condition: stable Disposition: PACU Indications for Procedure: The patient is a 69-year-old female who underwent right ureteroscopy with lithotripsy for an obstructive calculus at the right ureteropelvic junction at [facility] 8 days ago. The patient was admitted to this hospital 2 days ago with shortness of breath and sepsis and a urine culture is growing yeast. Computed tomography scan shows right hydronephrosis secondary to a 4 x 5 x 7 mm obstructive calculus fragment in the proximal right ureter. Cystoscopy with placement of right double-J catheters plan to ensure adequate drainage of the right kidney. Description of Procedure: The patient was taken gapping suite where adequate intravenous sedation was given. She was placed in the dorsal lithotomy position with her legs suspended from padded Adilson stirrups. Gregg catheter was removed. The genitalia was prepped with Betadine solution and draped in sterile fashion. The external genitalia and urethral meatus were unremarkable. The 21-Nigerian cystoscope sheath with 30 lens was passed through the urethra and into the bladder. The bladder was examined. Both ureteral orifices were of normal location and configuration. There is no evidence of tumor foreign body or calculus noted within the bladder. A 0.035 straight Glidewire was advanced through the right ureteral orifice and under fluoroscopic guidance the Glidewire was positioned so that it coiled in the region of the right renal pelvis. A 6-Nigerian by 22 cm double-J catheter was then advanced over the Glidewire and positioned so that the proximal end coiled in the region of the renal pelvis and the distal end coiled in the bladder. The bladder was drained and the cystoscope was withdrawn. Patient tolerated procedure well and left the operating room awake and in satisfactory condition. Her double-J catheter remain in place until her sepsis has been treated. She will then undergo either ESWL or ureteroscopic treatment of the calculus fragment.
[2020-03-25] MEDS ORDERED: IV FLUID CONTINUATION 1,000 ML IV ONE (09:45)
[2020-03-25 09:57] LABS: Glucose,Whole Blood 182 mg/dL (75-99)
--- NOTE | 2020-03-25 10:11 | CDI ---
Documentation Clarification Form Date: 03/25/2020 1003 CDS: Pretty Wilhelm RN, CCDS Admit Date: 03/23/2020 0147 Patient Name: Mansi Carolina ATTENTION: The Clinical Documentation Specialists (CDI) and [facility] Coding Staff appreciate your assistance in clarifying documentation. Please respond to the clarification below the line at the bottom and electronically sign. The CDI & [facility] Coding staff will review the response and follow-up if needed. Please note: Queries are made part of the Legal Health Record. If you have any questions, please contact the author of this message via ITS. Dr. Reis Chronic Normocytic Anemia is documented in the H&P and Progress Notes and requires further specificity. History/Risk Factors: Candidal Sepsis this admission per ID Consult with acute hypoxic respiratory Failure Paroxysmal Atrial-Fib, IDDM, ROCIO with ATN on CKD stage 3 Clinical indicators: 03/23-03/25 Hemoglobin: 9.9/8.7 03/23-03/25 Hematocrit:31.1/27.4 Treatment: Lab Monitoring AM Daily In order to capture the severity of condition, please clarify the type of anemia and etiology if known:. Chronic blood loss anemia Iron deficiency anemia Drug induced anemia Nutritional anemia Anemia of chronic kidney disease Anemia of chronic disease Unable to determine Other, please specify Please continue to document in your progress notes and discharge summary in order to capture severity of illness and risk of mortality. Include clinical findings that support your diagnosis. unable to determine workup has not been done for this patients anemia MTDD
[2020-03-25] MEDS: SODIUM CHLORIDE 0.9% 1,000 ML IV SCH (10:38)
[2020-03-25] MEDS: CLOPIDOGREL 75 MG TAB PO SCH (10:39)
[2020-03-25] MEDS: ASPIRIN 81 MG PO SCH (10:39)
[2020-03-25] MEDS: SODIUM BICARBONATE TAB 650 MG TAB PO SCH ×2 (10:40→20:18)
[2020-03-25] MEDS ORDERED: IPRATROPIUM-ALBUTEROL 3 ML NEB INHALATION STA (10:54)
[2020-03-25] MEDS ORDERED: methylPREDNISolone SOD SUCCI 125 MG/2 ML VIAL IV STA (10:55)
[2020-03-25] MEDS: AMPICILLIN-SULBACTAM 3 GM in SODIUM CHLORIDE 0.9% 100 ML IVPB SCH (11:51)
[2020-03-25 11:58] LABS: Glucose,Whole Blood 158 mg/dL (75-99)
--- NOTE | 2020-03-25 12:03 | P.PN ---
Subjective Progress Note Date: 03/25/20 69-year-old female patient presented to the hospital because of generalized weakness and shortness of breath. She states that her condition got worse after she underwent a lithotripsy procedure last week. Since then, the patient's been feeling progressively more short of breath, more tired and she's been getting short of breath with limited amount of activity. No orthopnea. No paroxysmal nocturnal dyspnea. No swelling lower extremities. She initially went to [facility] where she was found to be hypoxic. Chest x-ray was within normal limits and the blood work showed an acute kidney injury. She was also found to have some elevation in troponins and she got transferred to our [facility]. She came in to us on oxygen at 5 L per minute nasal cannula. She was started on IV heparin. Further workup was done and the patient was found to have a d-dimer of 4.5, a creatinine of 3.77, troponins were 0.034 0.03 respectively 2, proBNP level was 6460, and the white cell count was at 8.3 with a hemoglobin of 9.9. The chest x-ray showed interstitial pulmonary infiltrates bilateral along with cardiomegaly. No pleural effusion. No hilar masses. The Doppler of the lower extremity is a been negative for DVTs. The VQ scan came back negative or low probability for pulmonary embolism as there was some mesh defects in the upper lobes bilaterally. The patient is currently afebrile. She is currently on 4 L of oxygen by nasal cannula with a pulse is 99-100%. Her EKG shows normal sinus rhythm. Echocardiogram showed normal ejection fraction of 50-55%. Grade 1 diastolic dysfunction. Mild MR. No pericardial effusion. No evidence of any pulmonary hypertension. There is evidence of grade 1 diastolic dysfunction. On today's evaluation of 03/24/2020, the patient is doing well. She got transferred to the intensive care unit yesterday the patient was becoming a bit more short of breath yesterday. I was concerned of her respiratory status and the patient got transferred to the intensive care units. Note that I was also concerned about obstructive uropathy and urosepsis. The patient was given a CAT scan of the abdomen and pelvis and the patient was found to have a right kidney hydronephrosis and a Obstructing the right ureter. Urology consultation was obtained. Creatinine is still elevated at 3.6 with a BUN of 58 and the patient continues to be on a bicarb infusion with 150 mEq of sodium bicarbonate running at 100 mL an hour. The urine analysis and urine culture are still pending. Blood cultures still pending. Noted the patient was having episodes of fever throughout the night and the patient was covered with IV Rocephin. T-max was 103.1. Cover test was also done and the patient was placed in interrupted isolation. No nausea. No vomiting. No abdominal pain. No hematuria. Gregg cath is in place. She is currently on 6 L of oxygen by nasal cannula with a pulse of 74%. 03/25/2020, I'm seeing the patient for a follow-up. The patient was diagnosed having systemic fungal anemia as the blood culture that was obtained at [facility] showed yeast in 2 out of 2 cultures. The patient was started on Eraxis as an antifungal agent. Meanwhile, the urine culture also positive for Enterococcus group D and the patient is also on Unasyn. I had a discussion with infectious disease. I also discussed the case with urology. Th e patient has a obstructive calculus in the right ureter. The patient was taken to the operating room and the patient underwent a cystoscopy and placement of a right double-J catheter by urology. The procedure was tolerated well. After arriving back to the ICU, the patient was found to be slightly bronchus spastic and wheezy and she was given bronchodilators and she was given a dose of Solu-Medrol. She is currently hemodynamically stable. BUN is a 59 with a creatinine of 3.4. White cycles of 9.2 with a hemoglobin of 8.7. She is on 8 L of oxygen by nasal cannula with a pulse ox of 93%. A chest x-ray coarse interstitial markings that are present some interstitial edema and small bilate ral pleural effusions. She was given a dose of Lasix 40 mg IV push prior to her going to the operating room and this was given to her by Dr. Riley. The echocardiogram showed a preserved LV function with an ejection fraction of 50- 55%. She is awake and alert. She is lethargic pH is following simple commands. Objective - Vital Signs Vital signs: Vital Signs Temp 97.1 F L 03/25/20 09:42 Pulse 74 03/25/20 11:00 Resp 14 03/25/20 11:00 BP 102/50 09/12/20 11:00 Pulse Ox 93 L 03/25/20 11:00 Intake & Output 03/24/20 03/25/20 03/25/20 18:59 06:59 18:59 Intake Total 2155 1200 650 Output Total 515 340 337 Balance 1640 860 313 Weight 83.7 kg Intake: IV 1450 1200 550 Anidulafungin 200 mg In 200 100 Sodium Chloride 0.9% 200 ml @ 84 mls/hr IVPB ONCE ONE Rx#:[id number] Dextrose 5% in Water 1, 1200 1200 200 000 ml @ 100 mls/hr IV . [id number] [facility] with Sodium Bicarb (1 Meq/ml) 150 ml Rx#:[id number] Potassium Chloride 10 meq 100 In Water For Injection 1 100ml.bag @ 100 mls/hr IVPB Q1HR [facility] Rx#: [id number] Sodium Chloride 0.9% 1, 150 000 ml @ 50 mls/hr IV . Q20H [facility] Rx#:[id number] cefTRIAXone 1 gm In 50 Sodium Chloride 0.9% 50 ml @ 100 mls/hr IVPB Q24HR [facility] Rx#:[id number] Intake, IV Titration 100 Amount Potassium Chloride 10 meq 100 In Water For Injection 1 100ml.bag @ 100 mls/hr IVPB Q1HR [facility] Rx#: [id number] Oral 465 Tube Feeding 240 Output: Urine 515 340 337 Estimated Blood Loss 0 Other: Voiding Method Indwelling Catheter Indwelling Catheter Indwelling Catheter - Exam The patient appeared well nourished and normally developed. She is a bit lethargic this morning as the patient arrived from the operating room. She is currently on 8 L of oxygen by nasal cannula. No cervical rest or distress and she is not using excessive muscle breathing. Vital signs as documented. Head exam is unremarkable. No scleral icterus or corneal arcus noted. Neck is without jugular venous distension, thyromegaly, or carotid bruits. Carotid upstrokes are brisk bilaterally. Lungs are diminished in lung bases bilaterally along with some few crackles. Cardiac exam reveals the PMI to be normally sized and si tuated. Rhythm is regular. First and second heart sounds normal. No murmurs, rubs or gallops. Abdominal exam reveals normal bowel sounds, no masses, no organomegaly and no aortic enlargement. Extremities are nonedematous and both femoral and pedal pulses are normal. Examination of the skin revealed no evidence of significant rashes, suspicious appearing nevi or other concerning lesions.Neurologically, the patient is awake and alert and the patient does not have any focal neurological deficit. Cranial nerves are essentially intact. - Labs CBC & Chem 7: 03/25/20 04:47 03/25/20 04:47 Labs: Abnormal Lab Results - Last 24 Hours (Table) 03/24/20 03/24/20 03/24/20 Range/Units 04:51 16:54 20:52 RBC (3.80-5.40) m/uL Hgb (11.4-16.0) gm/dL Hct (34.0-46.0) % Neutrophils # (1.3-7.7) k/uL Lymphocytes # (1.0-4.8) k/uL Sodium (137-145) mmol/L Potassium (3.5-5.1) mmol/L Chloride (98-107) mmol/L BUN (7-17) mg/dL Creatinine (0.52-1.04) mg/dL Glucose (74-99) mg/dL POC Glucose (mg/dL) 254 H 325 H (75-99) mg/dL Calcium (8.4-10.2) mg/dL AST (14-36) U/L Total Protein (6.3-8.2) g/dL Albumin (3.5-5.0) g/dL Procalcitonin 8.89 H (0.02-0.09) ng/mL 03/25/20 03/25/20 03/25/20 Range/Units 02:58 04:47 04:47 RBC 2.84 L (3.80-5.40) m/uL Hgb 8.7 L (11.4-16.0) gm/dL Hct 27.4 L (34.0-46.0) % Neutrophils # 8.1 H (1.3-7.7) k/uL Lymphocytes # 0.5 L (1.0-4.8) k/uL Sodium 131 L (137-145) mmol/L Potassium 3.2 L (3.5-5.1) mmol/L Chloride 93 L (98-107) mmol/L BUN 59 H (7-17) mg/dL Creatinine 3.42 H (0.52-1.04) mg/dL Glucose 233 H (74-99) mg/dL POC Glucose (mg/dL) 253 H (75-99) mg/dL Calcium 7.1 L (8.4-10.2) mg/dL AST 49 H (14-36) U/L Total Protein 5.2 L (6.3-8.2) g/dL Albumin 2.5 L (3.5-5.0) g/dL Procalcitonin (0.02-0.09) ng/mL 03/25/20 03/25/20 Range/Units 06:26 09:55 RBC (3.80-5.40) m/uL Hgb (11.4-16.0) gm/dL Hct (34.0-46.0) % Neutrophils # (1.3-7.7) k/uL Lymphocytes # (1.0-4.8) k/uL Sodium (137-145) mmol/L Potassium (3.5-5.1) mmol/L Chloride (98-107) mmol/L BUN (7-17) mg/dL Creatinine (0.52-1.04) mg/dL Glucose (74-99) mg/dL POC Glucose (mg/dL) 253 H 182 H (75-99) mg/dL Calcium (8.4-10.2) mg/dL AST (14-36) U/L Total Protein (6.3-8.2) g/dL Albumin (3.5-5.0) g/dL Procalcitonin (0.02-0.09) ng/mL Microbiology - Last 24 Hours (Table) 03/23/20 15:07 Blood Culture - Final Blood 03/23/20 23:12 Blood Culture - Preliminary Blood No Growth after 24 hours 03/23/20 17:07 Urine Culture - Preliminary Urine,Voided Group D Enterococcus Assessment and Plan Plan: 1 acute kidney injury, under investigation, the patient has obstructive uropathy with a renal stone obstructing the ureter with right kidney hydronephrosis, urologist on the case. The patient was taken to the operating room and underwent cystoscopy and insertion of a double-J stent on the right. 2 systemic fungal anemia and the patient has positive yeast in 2 sets of blood cultures, currently on Eraxis. consider fungal copy. Urine checked infection with obstructive uropathy. Consider this being a complication of urinary manipulations. 3 acute hypoxic respiratory failure currently on 8 is about 2 by nasal cannula secondary to above 4 non-anion gap metabolic acidosis recovered and the patient will be taken off the bicarb infusion today. 5 history of nephrolithiasis post lithotripsy 6 diabetes mellitus type 2 7 hypertension 8 history of carotid artery disease with previous history of CVA. The patient has undergone bilateral endarterectomies 9 previous history of pneumonia right-sided involving the right lung 10 episodic fever currently under investigation. Cultures is also showing e nterococcus group D in the urine and the patient is on a combination of Eraxis and Unasyn. The patient was still having episodes of fever the most recent bout of fever was earlier this morning at 6 AM where the patient spiked a temperature of 100 and 4 AM she spiked a temperature of 101.5. Plan cystoscopy and double-J stent was placed on the right Urine cultures showing enterococcus group D Blood cultures showing yeast Continue Unasyn and Eraxis No need for pressors Wean down the FiO2 as tolerated to maintain saturation above 90% Echocardiogram was noted. No evidence of any regurgitation based on transthoracic echocardiogram Monitor renal function Discontinue the bicarb drip and switch this patient to a normal saline at the rate of 50 mL an hour We'll continue to follow. Condition is still critical.
--- NOTE | 2020-03-25 12:59 | FL ---
EXAMINATION TYPE: FL guidance operating room DATE OF EXAM: 03/25/2020 CLINICAL HISTORY: Right ureteral stent TECHNIQUE: Fluoroscopy. COMPARISON: None. FINDINGS: Fluoroscopic guidance was provided during procedure for performing physician. A total of 5 seconds of fluoroscopic time was utilized during the procedure and 1 spot images was acquired. Dilma vincent see operative report for additional details. IMPRESSION: As Above.
--- NOTE | 2020-03-25 13:16 | P.PN ---
Subjective This is Chio Clark PA-C dictating a progress note on this patient The patient was interviewed and examined by me as well as by Dr. Erickson Case discussed with Dr. Erickson and he agrees with the plan of care HPI/interval history Patient is a 69-year-old female with a history of diabetes, TIA, and carotid artery stenosis who presented with complaints of weakness fatigue and a fall at home. She had a recent lithotripsy and was found to be in acute renal failure. She has been short of breath and hypoxic. She was ruled out for Covid. Today she underwent cystoscopy and insertion of a double-J stent of the right. Blood culture showed yeast. Patient seen and examined in the ICU. Bedside telemetry shows sinus rhythm. Patient states her breathing has improved somewhat. She denies any chest pain. No dizziness. EXAMINATION A is afebrile, pulse in the 80s, respirations 18, blood pressure 102/59, oxygen saturation 94% on 6 L nasal cannula Patient seen and examined resting in bed, in no acute distress Lungs with expiratory wheezing bilaterally Heart is regular, no audible murmurs No lower extremity edema REVIEW OF LABS, ECG WBC 9.2, hemoglobin 8.7 platelets 222, sodium 131, potassium 3.2, BUN 59, creatinine 3.4 to IMPRESSION / ASSESSMENT: #1 shortness of breath and hypoxia, VQ scan showing low probability for PE, po ssible fluid overload, echocardiogram showing EF 50-55%, negative for Covid #2 acute kidney injury, recent lithotripsy, status post double-J stent placement #3 abnormal troponin in the setting of worsening renal function #4 history of TIA #5 history of carotid stenosis status post carotid endarterectomy #6 diabetes #7 systemic fungemia on Eraxis #8 recent echocardiogram showing EF 50-55% PLAN: Continue the current cardiac medication regimen including statins Likely outpatient workup for abnormal troponins once her kidney function improves Management of multiple other medical conditions by primary care team and multiple consultants Objective - Vital Signs Vital signs: Vital Signs Temp 98.3 F 03/25/20 12:00 Pulse 82 03/25/20 13:00 Resp 4 L 03/25/20 13:00 BP 102/59 03/25/20 13:00 Pulse Ox 94 L 03/25/20 13:00 Intake & Output 03/24/20 03/25/20 03/25/20 18:59 06:59 18:59 Intake Total 2155 1200 900 Output Total 515 340 737 Balance 1640 860 163 Weight 83.7 kg Intake: IV 1450 1200 800 Ampicillin-Sulbactam 3 gm 100 In Sodium Chloride 0.9% 100 ml @ 200 mls/hr IVPB Q12H [facility] Rx#:[id number] Anidulafungin 200 mg In 200 100 Sodium Chloride 0.9% 200 ml @ 84 mls/hr IVPB ONCE ONE Rx#:[id number] Dextrose 5% in Water 1, 1200 1200 200 000 ml @ 100 mls/hr IV . [id number] [facility] with Sodium Bicarb (1 Meq/ml) 150 ml Rx#:[id number] Potassium Chloride 10 meq 200 In Water For Injection 1 100ml.bag @ 100 mls/hr IVPB Q1HR [facility] Rx#: [id number] Sodium Chloride 0.9% 1, 200 000 ml @ 50 mls/hr IV . Q20H [facility] Rx#:[id number] cefTRIAXone 1 gm In 50 Sodium Chloride 0.9% 50 ml @ 100 mls/hr IVPB Q24HR [facility] Rx#:[id number] Intake, IV Titration 100 Amount Potassium Chloride 10 meq 100 In Water For Injection 1 100ml.bag @ 100 mls/hr IVPB Q1HR [facility] Rx#: [id number] Oral 465 Tube Feeding 240 Output: Urine 515 340 737 Estimated Blood Loss 0 Other: Voiding Method Indwelling Catheter Indwelling Catheter Bedpan - Labs CBC & Chem 7: 03/25/20 04:47 03/25/20 04:47 Labs: Abnormal Lab Results - Last 24 Hours (Table) 03/24/20 03/24/20 03/24/20 Range/Units 04:51 16:54 20:52 RBC (3.80-5.40) m/uL Hgb (11.4-16.0) gm/dL Hct (34.0-46.0) % Neutrophils # (1.3-7.7) k/uL Lymphocytes # (1.0-4.8) k/uL Sodium (137-145) mmol/L Potassium (3.5-5.1) mmol/L Chloride (98-107) mmol/L BUN (7-17) mg/dL Creatinine (0.52-1.04) mg/dL Glucose (74-99) mg/dL POC Glucose (mg/dL) 254 H 325 H (75-99) mg/dL Calcium (8.4-10.2) mg/dL AST (14-36) U/L Total Protein (6.3-8.2) g/dL Albumin (3.5-5.0) g/dL Procalcitonin 8.89 H (0.02-0.09) ng/mL 03/25/20 03/25/20 03/25/20 Range/Units 02:58 04:47 04:47 RBC 2.84 L (3.80-5.40) m/uL Hgb 8.7 L (11.4-16.0) gm/dL Hct 27.4 L (34.0-46.0) % Neutrophils # 8.1 H (1.3-7.7) k/uL Lymphocytes # 0.5 L (1.0-4.8) k/uL Sodium 131 L (137-145) mmol/L Potassium 3.2 L (3.5-5.1) mmol/L Chloride 93 L (98-107) mmol/L BUN 59 H (7-17) mg/dL Creatinine 3.42 H (0.52-1.04) mg/dL Glucose 233 H (74-99) mg/dL POC Glucose (mg/dL) 253 H (75-99) mg/dL Calcium 7.1 L (8.4-10.2) mg/dL AST 49 H (14-36) U/L Total Protein 5.2 L (6.3-8.2) g/dL Albumin 2.5 L (3.5-5.0) g/dL Procalcitonin (0.02-0.09) ng/mL 03/25/20 03/25/20 03/25/20 Range/Units 06:26 09:55 11:57 RBC (3.80-5.40) m/uL Hgb (11.4-16.0) gm/dL Hct (34.0-46.0) % Neutrophils # (1.3-7.7) k/uL Lymphocytes # (1.0-4.8) k/uL Sodium (137-145) mmol/L Potassium (3.5-5.1) mmol/L Chloride (98-107) mmol/L BUN (7-17) mg/dL Creatinine (0.52-1.04) mg/dL Glucose (74-99) mg/dL POC Glucose (mg/dL) 253 H 182 H 158 H (75-99) mg/dL Calcium (8.4-10.2) mg/dL AST (14-36) U/L Total Protein (6.3-8.2) g/dL Albumin (3.5-5.0) g/dL Procalcitonin (0.02-0.09) ng/mL Microbiology - Last 24 Hours (Table) 03/23/20 15:07 Blood Culture - Final Blood 03/23/20 23:12 Blood Culture - Preliminary Blood No Growth after 24 hours 03/23/20 17:07 Urine Culture - Preliminary Urine,Voided Group D Enterococcus
[2020-03-25] MEDS: oxyCODONE-APAP 5-325MG 1 EACH TAB PO PRN ×2 (13:57→19:03)
[2020-03-25] MEDS: atenoloL 25 MG TAB PO SCH ×2 (15:05→20:17)
--- NOTE | 2020-03-25 15:17 | P.PN ---
Subjective Progress Note Date: 03/25/20 Patient was seen and examined. Patient complains of right-sided flank pain. Underwent cystoscopy today. States that breathing has improved. She denies any chest pain, or palpitations. No nausea or vomiting. No fever or chills. Objective - Vital Signs Vital signs: Vital Signs Temp 98.3 F 03/25/20 12:00 Pulse 71 03/25/20 15:00 Resp 15 03/25/20 15:00 BP 111/51 03/25/20 15:00 Pulse Ox 90 L 03/25/20 15:00 Intake & Output 03/24/20 03/25/20 03/25/20 18:59 06:59 18:59 Intake Total 2155 1200 1000 Output Total 515 340 737 Balance 1640 860 263 Weight 83.7 kg Intake: IV 1450 1200 900 Ampicillin-Sulbactam 3 gm 100 In Sodium Chloride 0.9% 100 ml @ 200 mls/hr IVPB Q12H [facility] Rx#:[id number] Anidulafungin 200 mg In 200 100 Sodium Chloride 0.9% 200 ml @ 84 mls/hr IVPB ONCE ONE Rx#:[id number] Dextrose 5% in Water 1, 1200 1200 200 000 ml @ 100 mls/hr IV . [id number] [facility] with Sodium Bicarb (1 Meq/ml) 150 ml Rx#:[id number] Potassium Chloride 10 meq 200 In Water For Injection 1 100ml.bag @ 100 mls/hr IVPB Q1HR [facility] Rx#: [id number] Sodium Chloride 0.9% 1, 300 000 ml @ 50 mls/hr IV . Q20H [facility] Rx#:[id number] cefTRIAXone 1 gm In 50 Sodium Chloride 0.9% 50 ml @ 100 mls/hr IVPB Q24HR [facility] Rx#:[id number] Intake, IV Titration 100 Amount Potassium Chloride 10 meq 100 In Water For Injection 1 100ml.bag @ 100 mls/hr IVPB Q1HR [facility] Rx#: [id number] Oral 465 Tube Feeding 240 Output: Urine 515 340 737 Estimated Blood Loss 0 Other: Voiding Method Indwelling Catheter Indwelling Catheter Bedpan - Exam General: [non toxic], [no distress], [appears at stated age] Derm: [warm], [dry] Head: [atraumatic], [normocephalic], [symmetric] Eyes: [EOMI], [no lid lag], [anicteric sclera] Mouth: [no lip lesion], [mucus membranes moist] Cardiovascular: [S1S2 reg], [no murmur], [positive DP pulse bilateral], Lungs: [Decreased breath sounds bilateral], [no rhonchi, no rales] , [no ac cessory muscle use] Abdominal: [soft], [ nontender to palpation], [no guarding], [no appreciable org anomegaly], right-sided CVA tenderness Ext: [no gross muscle atrophy], [no edema], [no contractures] Neuro: [no focal neuro deficits] Psych: [Alert], [oriented], [appropriate affect] - Labs CBC & Chem 7: 03/25/20 04:47 03/25/20 04:47 Labs: Abnormal Lab Results - Last 24 Hours (Table) 03/24/20 03/24/20 03/24/20 Range/Units 04:51 16:54 20:52 RBC (3.80-5.40) m/uL Hgb (11.4-16.0) gm/dL Hct (34.0-46.0) % Neutrophils # (1.3-7.7) k/uL Lymphocytes # (1.0-4.8) k/uL Sodium (137-145) mmol/L Potassium (3.5-5.1) mmol/L Chloride (98-107) mmol/L BUN (7-17) mg/dL Creatinine (0.52-1.04) mg/dL Glucose (74-99) mg/dL POC Glucose (mg/dL) 254 H 325 H (75-99) mg/dL Calcium (8.4-10.2) mg/dL AST (14-36) U/L Total Protein (6.3-8.2) g/dL Albumin (3.5-5.0) g/dL Procalcitonin 8.89 H (0.02-0.09) ng/mL 03/25/20 03/25/20 03/25/20 Range/Units 02:58 04:47 04:47 RBC 2.84 L (3.80-5.40) m/uL Hgb 8.7 L (11.4-16.0) gm/dL Hct 27.4 L (34.0-46.0) % Neutrophils # 8.1 H (1.3-7.7) k/uL Lymphocytes # 0.5 L (1.0-4.8) k/uL Sodium 131 L (137-145) mmol/L Potassium 3.2 L (3.5-5.1) mmol/L Chloride 93 L (98-107) mmol/L BUN 59 H (7-17) mg/dL Creatinine 3.42 H (0.52-1.04) mg/dL Glucose 233 H (74-99) mg/dL POC Glucose (mg/dL) 253 H (75-99) mg/dL Calcium 7.1 L (8.4-10.2) mg/dL AST 49 H (14-36) U/L Total Protein 5.2 L (6.3-8.2) g/dL Albumin 2.5 L (3.5-5.0) g/dL Procalcitonin (0.02-0.09) ng/mL 03/25/20 03/25/20 03/25/20 Range/Units 06:26 09:55 11:57 RBC (3.80-5.40) m/uL Hgb (11.4-16.0) gm/dL Hct (34.0-46.0) % Neutrophils # (1.3-7.7) k/uL Lymphocytes # (1.0-4.8) k/uL Sodium (137-145) mmol/L Potassium (3.5-5.1) mmol/L Chloride (98-107) mmol/L BUN (7-17) mg/dL Creatinine (0.52-1.04) mg/dL Glucose (74-99) mg/dL POC Glucose (mg/dL) 253 H 182 H 158 H (75-99) mg/dL Calcium (8.4-10.2) mg/dL AST (14-36) U/L Total Protein (6.3-8.2) g/dL Albumin (3.5-5.0) g/dL Procalcitonin (0.02-0.09) ng/mL Microbiology - Last 24 Hours (Table) 03/23/20 15:07 Blood Culture - Final Blood 03/23/20 23:12 Blood Culture - Preliminary Blood No Growth after 24 hours 03/23/20 17:07 Urine Culture - Preliminary Urine,Voided Group D Enterococcus Assessment and Plan Assessment: Acute hypoxic respiratory failure with history of pulmonary fibrosis/COPD Urosepsis with obstructive uropathy with Acute kidney injury Fungemia Hypokalemia Flank pain Diabetes mellitus Hypertension VQ scan was low probability for PE and heparin drip has been discontinued. Venous duplex was negative for DVT. Pulmonology has been consulted for further management. Covid testing is negative. Pro-calcitonin is elevated. She'll be kept on supplemental O2 to maintain O2 saturation greater than 92%. One dose of Lasix given today for pulmonary edema seen on chest x-ray. Patient does meet sepsis criteria. She has a leukocytosis and fever. Urinalysis shows large leukocyte esterase. Urine culture shows group D enterococcus. Rocephin discontinued for Unasyn. Urology consulted for obstructing calculus in the right UPJ with right-sided hydronephrosis, she is status post cystoscopy POD 0 with double-J stent placed on the right side. Follow ID consultation. Blood culture growing yeast. Plans: Continued on anidulafungin. Infectious disease on board. Repeat blood culture pending. Her potassium will be replaced via protocol. Low dose of Percocet added for pain control. Plans to start insulin sliding-scale. Regular Accu-Cheks. Hypoglycemic prec autions. Hold antihypertensive medication from home. [Patient admitted for hypoxic respiratory failure. Also found to have urosepsis. Fungemia on blood culture. She is pending clinical improvement.]
[2020-03-25 16:43] LABS: Glucose,Whole Blood 250 mg/dL (75-99)
[2020-03-25] MEDS ORDERED: IBUPROFEN 400 MG TAB PO PRN (16:55)
--- NOTE | 2020-03-25 17:16 | PN ---
PROGRESS NOTE DATE OF SERVICE: 03/25/2020 REASON FOR FOLLOW UP: Candidemia and pyelonephritis. INTERVAL HISTORY: Patient is currently afebrile. The patient is taken to the OR and the patient is status post cystoscopy and double J stent placement. The patient tolerated the procedure. No chest pain, shortness of breath or cough. No nausea, no vomiting. No abdominal pain no diarrhea. PHYSICAL EXAMINATION: Blood pressure 122/53 with a pulse of 63, temperature is 97.7. He is 99% on 6 L nasal cannula. General description is an elderly female lying in bed in no distress. Respiratory system: Unlabored breathing, decreased breath sounds in the bases. No wheeze. Heart S1, S2. Regular rate and rhythm. Abdomen soft, no tenderness. LABS: Hemoglobin 8.7, white count 9.2, BUN of 59, creatinine 3.42. Urine showing a group D Enterococcus. Blood cultures showing yeast. DIAGNOSTIC IMPRESSION AND PLAN: Patient with candidemia. Source is likely urinary in this patient who did have a right- sided hydronephrosis with a ureteral stent. Plan at this time is to continue with Eraxis and Unasyn while waiting for the culture to finalize. Continue supportive care. MMODL / IJN: [id number] /
[2020-03-25 20:17] LABS: Glucose,Whole Blood 218 mg/dL (75-99)
[2020-03-25] MEDS: INSULIN DETEMIR (LEVEMIR) 100 UNIT/ML SYR SQ SCH (20:17)
[2020-03-25] MEDS: ATORVASTATIN 40 MG TAB PO SCH (20:18)
[2020-03-25] MEDS: MELATONIN 5 MG TABLET PO PRN (23:17)
--- NOTE | 2020-03-26 03:39 | XR ---
EXAMINATION TYPE: XR chest 1V portable DATE OF EXAM: 03/26/2020 COMPARISON: 03/25/2020 HISTORY: Short of breath TECHNIQUE: FINDINGS: There is infiltrates and atelectasis at both lung bases. There is some blunting of the cost ophrenic angles. There is mild pulmonary congestion. There are chest leads. IMPRESSION: Mild heart failure with small pleural effusions and basilar pulmonary infiltrates. No greta nge compared to yesterday.
[2020-03-26 05:25] LABS: Basophils % (A) 0 %; Eosinophils % (A) 0 %; HCT 31.3 % (34.0-46.0); HGB 9.8 gm/dL (11.4-16.0); Hypochromasia Slight; Lymphocytes # (A) 0.5 k/uL (1.0-4.8); Lymphocytes % (A) 5 %; MCH 30.8 pg (25.0-35.0); MCHC 31.2 g/dL (31.0-37.0); MCV 98.8 fL (80.0-100.0); Mean Platelet Volume 8.3; Monocytes # (A) 0.1 k/uL (0-1.0); Monocytes % (A) 1 %; Neutrophils # (A) 9.3 k/uL (1.3-7.7); Neutrophils % (A) 92 %; Platelet Count 258 k/uL (150-450); RBC 3.17 m/uL (3.80-5.40); RDW 14.2 % (11.5-15.5); WBC 10.1 k/uL (3.8-10.6)
[2020-03-26 05:34] LABS: Calcium 7.8 mg/dL (8.4-10.2); Potassium 3.7 mmol/L (3.5-5.1)
[2020-03-26 06:30] LABS: Glucose,Whole Blood 208 mg/dL (75-99)
[2020-03-26] MEDS: INSULIN ASPART (NovoLOG) 100 UNIT/ML VIAL SQ SCH ×7 (06:42→21:02)
--- NOTE | 2020-03-26 07:20 | CDI ---
Documentation Clarification Form Date: 03/26/2020718 CDS: Pretty Wilhelm RN, CCDS Admit Date: Patient Name: Mansi Carolina ATTENTION: The Clinical Documentation Specialists (CDI) and [facility] Coding Staff appreciate your assistance in clarifying documentation. Please respond to the clarification below the line at the bottom and electronically sign. The CDI & [facility] Coding staff will review the response and follow-up if needed. Please note: Queries are made part of the Legal Health Record. If you have any questions, please contact the author of this message via ITS. Dr. Reis Candidiasis is documented in the progress notes and requires further clarification regarding systemic infection d/t conflicting documentation to determine appropriate principal diagnosis. Patient history/risk factors: CKD stage 3, DM2 Clinical Indicators: 03/24 ID Consult: patient presented to hospital with sepsis in this patient who did have a fever tachycardia and elevated lactic acid positive now with evidence of candidemia and right-sided hydronephrosis in this patient who did have history of ureteral stent placement and recent removal likely premature removal of the stent as the patient still have a stone and right-sided hydronephrosis with evidence of candidemia source likely urinary. Patient does meet sepsis criteria" 03/25 Attending Progress note: "Acute hypoxic respiratory failure with history of pulmonary fibrosis/COPD Urosepsis with obstructive uropathy with Acute kidney injury Fungemia. Fungemia on blood culture." 03/25 Cardiology Progress note: "systemic fungemia on Eraxis." 03/25 Urology Progress Note: "Her double-J catheter remain in place until her sepsis has been treated." Labs: 03/23 Urine CX + Enterococcus faecalis 03/23 Blood Cx + Daylin Albicans x 1 03/23-03/26 WBC 8.3/12.7/9.2/10.1 03/22 2355 Admission Vital Signs: Temp 99.1, HR 83, RR 20, B/P 110/52, Spo2 97% on 5L NC Treatment: Unasyn 3 gm IVPB q 24 hrs Anidulafungin 100 mg IVPB QD Consults: ID- see above note In your professional opinion, can the systemic Candidiasis be further specified as one of the following? Sepsis due to candidiasis Specify infection location: Cystitis, urethritis, balanitis, other urogenital candidiasis? Fungemia due to candidiasis Specify infection location: Cystitis, urethritis, balanitis, other urogenital candidiasis? Candidiasis of other sites, please specify Other, please specify Unable to determine Please continue to document in your progress notes and discharge summary in order to capture severity of illness and risk of mortality. Include clinical findings that support your diagnosis. fungemia due to candidiasis, urogenital source MTDD
[2020-03-26] MEDS: HEPARIN SODIUM,PORCINE 5,000 UNIT/ML 1 ML VIAL SQ SCH ×3 (07:56→23:15)
[2020-03-26] MEDS: SODIUM CHLORIDE 0.9% 1,000 ML IV SCH (07:56)
[2020-03-26] MEDS: CLOPIDOGREL 75 MG TAB PO SCH (07:57)
[2020-03-26] MEDS: ANIDULAFUNGIN 100 MG in SODIUM CHLORIDE 0.9% 100 ML IVPB SCH (07:57)
[2020-03-26] MEDS: atenoloL 25 MG TAB PO SCH ×2 (07:57→20:57)
[2020-03-26] MEDS: ASPIRIN 81 MG PO SCH (07:57)
[2020-03-26] MEDS: SODIUM BICARBONATE TAB 650 MG TAB PO SCH (08:31)
[2020-03-26] MEDS ORDERED: FUROSEMIDE 10 MG/ML 4 ML VIAL IV STA (08:32)
--- NOTE | 2020-03-26 09:22 | P.PN ---
Subjective patient seen in follow-up for acute kidney injury on chronic kidney disease. Renal function is improving. Creatinine 2.52 today. underwent cystoscopy with right ureteral stent placement March 25. No vomiting or diarrhea. hemodynamically stable. Vital signs are stable. General: The patient appeared well nourished and normally developed. HEENT: Head exam is unremarkable. Neck is without jugular venous distension. HEART: Rate and Rhythm are regular. ABDOMEN: no distention noted. EXTREMITITES: trace edema. Objective - Vital Signs Vital signs: Vital Signs Temp 97.6 F 03/26/20 08:00 Pulse 57 L 03/26/20 09:00 Resp 14 03/26/20 09:00 BP 102/47 03/26/20 09:00 Pulse Ox 92 L 03/26/20 09:12 Intake & Output 03/25/20 03/26/20 03/26/20 18:59 06:59 18:59 Intake Total 1150 600 200 Output Total 1137 1150 210 Balance 13 550 -10 Weight 80.7 kg Intake: IV 1050 600 200 Ampicillin-Sulbactam 3 gm 100 In Sodium Chloride 0.9% 100 ml @ 200 mls/hr IVPB Q12H [facility] Rx#:[id number] Anidulafungin 100 mg In 100 Sodium Chloride 0.9% 100 ml @ 84 mls/hr IVPB DAILY [facility] Rx#:[id number] Anidulafungin 200 mg In 100 Sodium Chloride 0.9% 200 ml @ 84 mls/hr IVPB ONCE ONE Rx#:[id number] Dextrose 5% in Water 1, 200 000 ml @ 100 mls/hr IV . [id number] [facility] with Sodium Bicarb (1 Meq/ml) 150 ml Rx#:[id number] Potassium Chloride 10 meq 200 In Water For Injection 1 100ml.bag @ 100 mls/hr IVPB Q1HR [facility] Rx#: [id number] Sodium Chloride 0.9% 1, 450 600 100 000 ml @ 50 mls/hr IV . Q20H [facility] Rx#:[id number] Intake, IV Titration 100 Amount Potassium Chloride 10 meq 100 In Water For Injection 1 100ml.bag @ 100 mls/hr IVPB Q1HR [facility] Rx#: [id number] Output: Urine 1137 1150 210 Estimated Blood Loss 0 Other: Voiding Method Bedpan Bedpan Bedpan # Voids 1 # Bowel Movements 1 1 - Labs CBC & Chem 7: 03/26/20 04:58 03/26/20 04:58 Labs: Abnormal Lab Results - Last 24 Hours (Table) 03/25/20 03/25/20 03/25/20 Range/Units 09:55 11:57 16:40 RBC (3.80-5.40) m/uL Hgb (11.4-16.0) gm/dL Hct (34.0-46.0) % Neutrophils # (1.3-7.7) k/uL Lymphocytes # (1.0-4.8) k/uL Chloride (98-107) mmol/L Carbon Dioxide (22-30) mmol/L BUN (7-17) mg/dL Creatinine (0.52-1.04) mg/dL Glucose (74-99) mg/dL POC Glucose (mg/dL) 182 H 158 H 250 H (75-99) mg/dL Calcium (8.4-10.2) mg/dL 03/25/20 03/26/20 03/26/20 Range/Units 20:06 04:58 04:58 RBC 3.17 L (3.80-5.40) m/uL Hgb 9.8 L (11.4-16.0) gm/dL Hct 31.3 L (34.0-46.0) % Neutrophils # 9.3 H (1.3-7.7) k/uL Lymphocytes # 0.5 L (1.0-4.8) k/uL Chloride 96 L (98-107) mmol/L Carbon Dioxide 31 H (22-30) mmol/L BUN 58 H (7-17) mg/dL Creatinine 2.52 H (0.52-1.04) mg/dL Glucose 183 H (74-99) mg/dL POC Glucose (mg/dL) 218 H (75-99) mg/dL Calcium 7.8 L (8.4-10.2) mg/dL 03/26/20 Range/Units 06:28 RBC (3.80-5.40) m/uL Hgb (11.4-16.0) gm/dL Hct (34.0-46.0) % Neutrophils # (1.3-7.7) k/uL Lymphocytes # (1.0-4.8) k/uL Chloride (98-107) mmol/L Carbon Dioxide (22-30) mmol/L BUN (7-17) mg/dL Creatinine (0.52-1.04) mg/dL Glucose (74-99) mg/dL POC Glucose (mg/dL) 208 H (75-99) mg/dL Calcium (8.4-10.2) mg/dL Microbiology - Last 24 Hours (Table) 03/23/20 17:07 Urine Culture - Final Urine,Voided Enterococcus faecalis 03/23/20 23:12 Blood Culture Gram Stain - Preliminary Blood 03/24/20 18:25 Blood Culture - Preliminary Blood No Growth after 24 hours 03/24/20 18:39 Blood Culture - Preliminary Blood No Growth after 24 hours 03/23/20 15:07 Blood Culture Gram Stain - Preliminary Blood Blood Culture - Preliminary Daylni albicans 03/23/20 23:12 Blood Culture - Final Blood 03/23/20 15:07 Blood Culture - Final Blood Assessment and Plan Plan: Assessment: 1. Acute kidney injury secondary to ATN secondary to hypotension and nonsteroidals. also component of obstructive uropathy. Noted to have right- sided hydronephrosis on CAT scan. creatinine down to 2.52 today. 2. Chronic kidney disease stage III secondary to diabetic kidney disease with baseline creatinine 1.1-1.2 from August 2019. 3. Metabolic acidosis secondary to acute kidney injury and GI losses. Was also on metformin outpatient. partially compensatory for respiratory alkalosis. resolved. 4. Insulin-dependent diabetes mellitus. 5. Status post fall. 6. Right-sided hydronephrosis. s/p cystoscopy with stent placement on March 25. 7. UTI with urine culture positive for group D enterococcus maintained on antibiotics. 8. Fungemia maintained on antifungal. Plan: Hep-Lock IV fluids. Lasix 40 mg IV once today. Avoid nephrotoxins. Continue to monitor renal function and urine output. discontinue oral bicarb.
--- NOTE | 2020-03-26 10:07 | P.PN ---
Progress Note - Text Progress Note Date: 03/26/20 The patient is afebrile and normotensive. She says that she feels better overall. She is tolerating her double-J catheter fairly well. BUN/creatinine are improved at 58/2.52. White blood count is 10,100. Blood cultures continue to grow Daylin and a urine culture is growing Enterococcus faecalis. It is likely that the patient's Daylin bacteremia were related to her ureteroscopic procedure performed earlier in the month. She will require IV antifungals and treatment of the right ureteral calculus via ureteroscopy and lithotripsy will need to be deferred for at least 3 weeks.
[2020-03-26] MEDS: AMPICILLIN-SULBACTAM 3 GM in SODIUM CHLORIDE 0.9% 100 ML IVPB SCH (10:26)
--- NOTE | 2020-03-26 11:08 | P.PN ---
Subjective Progress Note Date: 03/26/20 69-year-old female patient presented to the hospital because of generalized weakness and shortness of breath. She states that her condition got worse after she underwent a lithotripsy procedure last week. Since then, the patient's been feeling progressively more short of breath, more tired and she's been getting short of breath with limited amount of activity. No orthopnea. No paroxysmal nocturnal dyspnea. No swelling lower extremities. She initially went to [facility] where she was found to be hypoxic. Chest x-ray was within normal limits and the blood work showed an acute kidney injury. She was also found to have some elevation in troponins and she got transferred to our [facility]. She came in to us on oxygen at 5 L per minute nasal cannula. She was started on IV heparin. Further workup was done and the patient was found to have a d-dimer of 4.5, a creatinine of 3.77, troponins were 0.034 0.03 respectively 2, proBNP level was 6460, and the white cell count was at 8.3 with a hemoglobin of 9.9. The chest x-ray showed interstitial pulmonary infiltrates bilateral along with cardiomegaly. No pleural effusion. No hilar masses. The Doppler of the lower extremity is a been negative for DVTs. The VQ scan came back negative or low probability for pulmonary embolism as there was some mesh defects in the upper lobes bilaterally. The patient is currently afebrile. She is currently on 4 L of oxygen by nasal cannula with a pulse is 99-100%. Her EKG shows normal sinus rhythm. Echocardiogram showed normal ejection fraction of 50-55%. Grade 1 diastolic dysfunction. Mild MR. No pericardial effusion. No evidence of any pulmonary hypertension. There is evidence of grade 1 diastolic dysfunction. On today's evaluation of 03/24/2020, the patient is doing well. She got transferred to the intensive care unit yesterday the patient was becoming a bit more short of breath yesterday. I was concerned of her respiratory status and the patient got transferred to the intensive care units. Note that I was also concerned about obstructive uropathy and urosepsis. The patient was given a CAT scan of the abdomen and pelvis and the patient was found to have a right kidney hydronephrosis and a Obstructing the right ureter. Urology consultation was obtained. Creatinine is still elevated at 3.6 with a BUN of 58 and the patient continues to be on a bicarb infusion with 150 mEq of sodium bicarbonate running at 100 mL an hour. The urine analysis and urine culture are still pending. Blood cultures still pending. Noted the patient was having episodes of fever throughout the night and the patient was covered with IV Rocephin. T-max was 103.1. Cover test was also done and the patient was placed in interrupted isolation. No nausea. No vomiting. No abdominal pain. No hematuria. Gregg cath is in place. She is currently on 6 L of oxygen by nasal cannula with a pulse of 74%. 03/25/2020, I'm seeing the patient for a follow-up. The patient was diagnosed having systemic fungal anemia as the blood culture that was obtained at [facility] showed yeast in 2 out of 2 cultures. The patient was started on Eraxis as an antifungal agent. Meanwhile, the urine culture also positive for Enterococcus group D and the patient is also on Unasyn. I had a discussion with infectious disease. I also discussed the case with urology. Th e patient has a obstructive calculus in the right ureter. The patient was taken to the operating room and the patient underwent a cystoscopy and placement of a right double-J catheter by urology. The procedure was tolerated well. After arriving back to the ICU, the patient was found to be slightly bronchus spastic and wheezy and she was given bronchodilators and she was given a dose of Solu-Medrol. She is currently hemodynamically stable. BUN is a 59 with a creatinine of 3.4. White cycles of 9.2 with a hemoglobin of 8.7. She is on 8 L of oxygen by nasal cannula with a pulse ox of 93%. A chest x-ray coarse interstitial markings that are present some interstitial edema and small bilate ral pleural effusions. She was given a dose of Lasix 40 mg IV push prior to her going to the operating room and this was given to her by Dr. Riley. The echocardiogram showed a preserved LV function with an ejection fraction of 50- 55%. She is awake and alert. She is lethargic pH is following simple commands. 03/26/2020, the patient is feeling much better. She underwent a double-J stent placement on the right and the patient is improved since then in the urine output is improved and the patient creatinine is also on the decline. Her creatinine is down to 2.5. The patient is also improving in terms of her breathing. She was on high flow oxygen 15 L and currently she is being weaned down to 6 L about 2 by nasal cannula. She was seen by nephrology earlier and she was kept on IV fluids to KVO and the patient was given a dose of Lasix 40 mg IV push. For now, the patient has yeast in her blood and the patient on Eraxis the patient also has Enterococcus faecalis in her urine currently on IV Unasyn. No fever. No chills. Appetite is improved. His strength is improved. No body aches. Mentation is much improved compared to yesterday. Discussed the case with urology. The patient will need to be having further procedures once her sepsis is improved to remove the right ureter stone. For now she has a double-J catheter in place. No other complaints otherwise for now. Objective - Vital Signs Vital signs: Vital Signs Temp 97.6 F 03/26/20 08:00 Pulse 59 L 03/26/20 10:00 Resp 13 03/26/20 10:00 BP 104/46 03/26/20 10:00 Pulse Ox 92 L 03/26/20 10:00 Intake & Output 03/25/20 03/26/20 03/26/20 18:59 06:59 18:59 Intake Total 1150 600 200 Output Total 1137 1150 210 Balance 13 -550 -10 Weight 80.7 kg Intake: IV 1050 600 200 Ampicillin-Sulbactam 3 gm 100 In Sodium Chloride 0.9% 100 ml @ 200 mls/hr IVPB Q12H [facility] Rx#:[id number] Anidulafungin 100 mg In 100 Sodium Chloride 0.9% 100 ml @ 84 mls/hr IVPB DAILY [facility] Rx#:[id number] Anidulafungin 200 mg In 100 Sodium Chloride 0.9% 200 ml @ 84 mls/hr IVPB ONCE ONE Rx#:[id number] Dextrose 5% in Water 1, 200 000 ml @ 100 mls/hr IV . [id number] [facility] with Sodium Bicarb (1 Meq/ml) 150 ml Rx#:[id number] Potassium Chloride 10 meq 200 In Water For Injection 1 100ml.bag @ 100 mls/hr IVPB Q1HR [facility] Rx#: [id number] Sodium Chloride 0.9% 1, 450 600 100 000 ml @ 50 mls/hr IV . Q20H [facility] Rx#:[id number] Intake, IV Titration 100 Amount Potassium Chloride 10 meq 100 In Water For Injection 1 100ml.bag @ 100 mls/hr IVPB Q1HR [facility] Rx#: [id number] Output: Urine 1137 1150 210 Estimated Blood Loss 0 Other: Voiding Method Bedpan Bedpan Bedpan # Voids 1 # Bowel Movements 1 1 - Exam The patient appeared well nourished and normally developed. She is a bit lethargic this morning as the patient arrived from the operating room. She is currently on 6L of oxygen by nasal cannula. No cervical rest or distress and she is not using excessive muscle breathing. Vital signs as documented. Head exam is unremarkable. No scleral icterus or corneal arcus noted. Neck is without jugular venous distension, thyromegaly, or carotid bruits. Carotid upstrokes are brisk bilaterally. Lungs are diminished in lung bases bilaterally along with some few crackles. Cardiac exam reveals the PMI to be normally sized and situated. Rhythm is regular. First and second heart sounds normal. No murmurs, rubs or gallops. Abdominal exam reveals normal bowel sounds, no masses, no organomegaly and no aortic enlargement. Extremities are nonedematous and both femoral and pedal pulses are normal. Examination of the skin revealed no evidence of significant rashes, suspicious appearing nevi or other concerning lesions.Neurologically, the patient is awake and alert and the patient does not have any focal neurological deficit. Cranial nerves are essentially intact. - Labs CBC & Chem 7: 03/26/20 04:58 03/26/20 04:58 Labs: Abnormal Lab Results - Last 24 Hours (Table) 03/25/20 03/25/20 03/25/20 Range/Units 11:57 16:40 20:06 RBC (3.80-5.40) m/uL Hgb (11.4-16.0) gm/dL Hct (34.0-46.0) % Neutrophils # (1.3-7.7) k/uL Lymphocytes # (1.0-4.8) k/uL Chloride (98-107) mmol/L Carbon Dioxide (22-30) mmol/L BUN (7-17) mg/dL Creatinine (0.52-1.04) mg/dL Glucose (74-99) mg/dL POC Glucose (mg/dL) 158 H 250 H 218 H (75-99) mg/dL Calcium (8.4-10.2) mg/dL 03/26/20 03/26/20 03/26/20 Range/Units 04:58 04:58 06:28 RBC 3.17 L (3.80-5.40) m/uL Hgb 9.8 L (11.4-16.0) gm/dL Hct 31.3 L (34.0-46.0) % Neutrophils # 9.3 H (1.3-7.7) k/uL Lymphocytes # 0.5 L (1.0-4.8) k/uL Chloride 96 L (98-107) mmol/L Carbon Dioxide 31 H (22-30) mmol/L BUN 58 H (7-17) mg/dL Creatinine 2.52 H (0.52-1.04) mg/dL Glucose 183 H (74-99) mg/dL POC Glucose (mg/dL) 208 H (75-99) mg/dL Calcium 7.8 L (8.4-10.2) mg/dL Microbiology - Last 24 Hours (Table) 03/23/20 17:07 Urine Culture - Final Urine,Voided Enterococcus faecalis 03/23/20 23:12 Blood Culture Gram Stain - Preliminary Blood 03/24/20 18:25 Blood Culture - Preliminary Blood No Growth after 24 hours 03/24/20 18:39 Blood Culture - Preliminary Blood No Growth after 24 hours 03/23/20 15:07 Blood Culture Gram Stain - Preliminary Blood Blood Culture - Preliminary Daylin albicans 03/23/20 23:12 Blood Culture - Final Blood Assessment and Plan Plan: 1 acute kidney injury, , the patient has obstructive uropathy with a renal stone obstructing the ureter with right kidney hydronephrosis, the patient is post double-J stent insertion on the right with subsequent improvement in the urine output and the renal function and the creatinine is down to 2.5 and it's improving. 2 systemic fungal anemia and the patient has positive yeast in 2 sets of blood c ultures, currently on Eraxis. 3 acute hypoxic respiratory failure improving and currently she is down to 6 L 4 Enterococcus faecalis in the urine currently on IV Unasyn 5 history of nephrolithiasis post lithotripsy 6 diabetes mellitus type 2 7 hypertension 8 history of carotid artery disease with previous history of CVA. The patient has undergone bilateral endarterectomies 9 previous history of pneumonia right-sided involving the right lung 10 episodic fever secondary to above my improved Plan cystoscopy and double-J sten stent placement was done and the patient's renal function is improving Continue Unasyn and Eraxis No need for pressors Wean down the FiO2 as tolerated to maintain saturation above 90% , Currently on 6 L Echocardiogram was noted. No evidence of any regurgitation based on transthoracic echocardiogram Monitor renal function Which is improving and creatinine is down to 2.5 IV fluids to KVO We'll continue to follow
[2020-03-26 11:26] LABS: Glucose,Whole Blood 231 mg/dL (75-99)
[2020-03-26] MEDS ORDERED: ONDANSETRON 4 MG/2 ML VIAL IVP PRN (12:12)
--- NOTE | 2020-03-26 12:54 | P.PN ---
Subjective This is Chio Clark PA-C dictating a progress note on this patient The patient was interviewed and examined by me as well as by Dr. Erickson Case discussed with Dr. Erickson and he agrees with the plan of care HPI/interval history Patient is a 69-year-old female with a history of diabetes, TIA, and carotid artery stenosis who presented with complaints of weakness fatigue and a fall at home. She had a recent lithotripsy and was found to be in acute renal failure. She has been short of breath and hypoxic. She was ruled out for Covid. Yesterday she underwent cystoscopy and insertion of a double-J stent of the right. Blood culture showed yeast and she has been started on Eraxis. Patient seen and examined in the ICU. Bedside telemetry shows sinus mechanism with rate in the 60s. Her breathing is better today. Denies any chest pain or abdominal pain. No dizziness EXAMINATION Temperature 97.7F, pulse in the 70s, blood pressure 119/57, respirations 16, oxygen saturation 93% on 6 L nasal cannula Patient seen and examined in the ICU, in no acute distress Lungs with few scattered crackles at the bases Heart is regular, no audible murmurs No lower extremity edema REVIEW OF LABS, ECG WBC 10.1, hemoglobin 9.8, platelets 258, potassium 3.7, BUN 58, creatinine 2.5 to IMPRESSION / ASSESSMENT: #1 shortness of breath and hypoxia, VQ scan showing low probability for PE, possible fluid overload, echocardiogram showing EF 50-55%, negative for Covid #2 acute kidney injury, recent lithotripsy, status post double-J stent plac ement, renal function improving #3 abnormal troponin in the setting of worsening renal function #4 history of TIA #5 history of carotid stenosis status post carotid endarterectomy #6 diabetes #7 systemic fungemia on Eraxis #8 recent echocardiogram showing EF 50-55% PLAN: Continue the current cardiac medication regimen including statins Likely outpatient workup for abnormal troponins once her kidney function improves Management of multiple other medical conditions by primary care team and multip le consultants Objective - Vital Signs Vital signs: Vital Signs Temp 97.7 F 03/26/20 12:00 Pulse 70 03/26/20 12:00 Resp 16 03/26/20 11:00 BP 119/54 03/26/20 12:00 Pulse Ox 93 L 03/26/20 12:00 Intake & Output 03/25/20 03/26/20 03/26/20 18:59 06:59 18:59 Intake Total 1150 600 300 Output Total 1137 1150 460 Balance 13 -550 -160 Weight 80.7 kg Intake: IV 1050 600 200 Ampicillin-Sulbactam 3 gm 100 In Sodium Chloride 0.9% 100 ml @ 200 mls/hr IVPB Q12H [facility] Rx#:[id number] Anidulafungin 100 mg In 100 Sodium Chloride 0.9% 100 ml @ 84 mls/hr IVPB DAILY [facility] Rx#:[id number] Anidulafungin 200 mg In 100 Sodium Chloride 0.9% 200 ml @ 84 mls/hr IVPB ONCE ONE Rx#:[id number] Dextrose 5% in Water 1, 200 000 ml @ 100 mls/hr IV . [id number] [facility] with Sodium Bicarb (1 Meq/ml) 150 ml Rx#:[id number] Potassium Chloride 10 meq 200 In Water For Injection 1 100ml.bag @ 100 mls/hr IVPB Q1HR [facility] Rx#: [id number] Sodium Chloride 0.9% 1, 450 600 100 000 ml @ 50 mls/hr IV . Q20H [facility] Rx#:[id number] Intake, IV Titration 100 100 Amount Ampicillin-Sulbactam 3 gm 100 In Sodium Chloride 0.9% 100 ml @ 200 mls/hr IVPB Q24H [facility] Rx#:[id number] Potassium Chloride 10 meq 100 In Water For Injection 1 100ml.bag @ 100 mls/hr IVPB Q1HR [facility] Rx#: [id number] Output: Urine 1137 1150 460 Estimated Blood Loss 0 Other: Voiding Method Bedpan Bedpan Bedpan # Voids 1 # Bowel Movements 1 1 - Labs CBC & Chem 7: 03/26/20 04:58 03/26/20 04:58 Labs: Abnormal Lab Results - Last 24 Hours (Table) 03/25/20 03/25/20 03/26/20 Range/Units 16:40 20:06 04:58 RBC 3.17 L (3.80-5.40) m/uL Hgb 9.8 L (11.4-16.0) gm/dL Hct 31.3 L (34.0-46.0) % Neutrophils # 9.3 H (1.3-7.7) k/uL Lymphocytes # 0.5 L (1.0-4.8) k/uL Chloride (98-107) mmol/L Carbon Dioxide (22-30) mmol/L BUN (7-17) mg/dL Creatinine (0.52-1.04) mg/dL Glucose (74-99) mg/dL POC Glucose (mg/dL) 250 H 218 H (75-99) mg/dL Calcium (8.4-10.2) mg/dL 03/26/20 03/26/20 03/26/20 Range/Units 04:58 06:28 11:24 RBC (3.80-5.40) m/uL Hgb (11.4-16.0) gm/dL Hct (34.0-46.0) % Neutrophils # (1.3-7.7) k/uL Lymphocytes # (1.0-4.8) k/uL Chloride 96 L (98-107) mmol/L Carbon Dioxide 31 H (22-30) mmol/L BUN 58 H (7-17) mg/dL Creatinine 2.52 H (0.52-1.04) mg/dL Glucose 183 H (74-99) mg/dL POC Glucose (mg/dL) 208 H 231 H (75-99) mg/dL Calcium 7.8 L (8.4-10.2) mg/dL Microbiology - Last 24 Hours (Table) 03/23/20 23:12 Blood Culture Gram Stain - Final Blood Blood Culture - Final Daylin albicans 03/23/20 15:07 Blood Culture Gram Stain - Final Blood Blood Culture - Final Daylin albicans 03/23/20 17:07 Urine Culture - Final Urine,Voided Enterococcus faecalis 03/24/20 18:25 Blood Culture - Preliminary Blood No Growth after 24 hours 03/24/20 18:39 Blood Culture - Preliminary Blood No Growth after 24 hours 03/23/20 23:12 Blood Culture - Final Blood
--- NOTE | 2020-03-26 13:36 | P.PN ---
Subjective Progress Note Date: 03/26/20 Patient was seen and examined. Patient reports improvement in right-sided flank pain. States that breathing has improved. She complains of some nausea. She denies any chest pain, or palpitations. No nausea or vomiting. No fever or chills. Objective - Vital Signs Vital signs: Vital Signs Temp 97.7 F 03/26/20 12:00 Pulse 70 03/26/20 12:00 Resp 16 03/26/20 11:00 BP 119/54 03/26/20 12:00 Pulse Ox 93 L 03/26/20 12:00 Intake & Output 03/25/20 03/26/20 03/26/20 18:59 06:59 18:59 Intake Total 1150 600 300 Output Total 1137 1150 460 Balance 13 550 -160 Weight 80.7 kg Intake: IV 1050 600 200 Ampicillin-Sulbactam 3 gm 100 In Sodium Chloride 0.9% 100 ml @ 200 mls/hr IVPB Q12H [facility] Rx#:[id number] Anidulafungin 100 mg In 100 Sodium Chloride 0.9% 100 ml @ 84 mls/hr IVPB DAILY [facility] Rx#:[id number] Anidulafungin 200 mg In 100 Sodium Chloride 0.9% 200 ml @ 84 mls/hr IVPB ONCE ONE Rx#:[id number] Dextrose 5% in Water 1, 200 000 ml @ 100 mls/hr IV . [id number] [facility] with Sodium Bicarb (1 Meq/ml) 150 ml Rx#:[id number] Potassium Chloride 10 meq 200 In Water For Injection 1 100ml.bag @ 100 mls/hr IVPB Q1HR [facility] Rx#: [id number] Sodium Chloride 0.9% 1, 450 600 100 000 ml @ 50 mls/hr IV . Q20H [facility] Rx#:[id number] Intake, IV Titration 100 100 Amount Ampicillin-Sulbactam 3 gm 100 In Sodium Chloride 0.9% 100 ml @ 200 mls/hr IVPB Q24H [facility] Rx#:[id number] Potassium Chloride 10 meq 100 In Water For Injection 1 100ml.bag @ 100 mls/hr IVPB Q1HR [facility] Rx#: [id number] Output: Urine 1137 1150 460 Estimated Blood Loss 0 Other: Voiding Method Bedpan Bedpan Bedpan # Voids 1 # Bowel Movements 1 1 - Exam General: [non toxic], [no distress], [appears at stated age] Derm: [warm], [dry] Head: [atraumatic], [normocephalic], [symmetric] Eyes: [EOMI], [no lid lag], [anicteric sclera] Mouth: [no lip lesion], [mucus membranes moist] Cardiovascular: [S1S2 reg], [no murmur], [positive DP pulse bilateral], Lungs: [Decreased breath sounds bilateral], [no rhonchi, no rales] , [no accessory muscle use] Abdominal: [soft], [ nontender to palpation], [no guarding], [no appreciable organomegaly], right-sided CVA tenderness Ext: [no gross muscle atrophy], [no edema], [no contractures] Neuro: [no focal neuro deficits] Psych: [Alert], [oriented], [appropriate affect] - Labs CBC & Chem 7: 03/26/20 04:58 03/26/20 04:58 Labs: Abnormal Lab Results - Last 24 Hours (Table) 03/25/20 03/25/20 03/26/20 Range/Units 16:40 20:06 04:58 RBC 3.17 L (3.80-5.40) m/uL Hgb 9.8 L (11.4-16.0) gm/dL Hct 31.3 L (34.0-46.0) % Neutrophils # 9.3 H (1.3-7.7) k/uL Lymphocytes # 0.5 L (1.0-4.8) k/uL Chloride (98-107) mmol/L Carbon Dioxide (22-30) mmol/L BUN (7-17) mg/dL Creatinine (0.52-1.04) mg/dL Glucose (74-99) mg/dL POC Glucose (mg/dL) 250 H 218 H (75-99) mg/dL Calcium (8.4-10.2) mg/dL 03/26/20 03/26/20 03/26/20 Range/Units 04:58 06:28 11:24 RBC (3.80-5.40) m/uL Hgb (11.4-16.0) gm/dL Hct (34.0-46.0) % Neutrophils # (1.3-7.7) k/uL Lymphocytes # (1.0-4.8) k/uL Chloride 96 L (98-107) mmol/L Carbon Dioxide 31 H (22-30) mmol/L BUN 58 H (7-17) mg/dL Creatinine 2.52 H (0.52-1.04) mg/dL Glucose 183 H (74-99) mg/dL POC Glucose (mg/dL) 208 H 231 H (75-99) mg/dL Calcium 7.8 L (8.4-10.2) mg/dL Microbiology - Last 24 Hours (Table) 03/23/20 23:12 Blood Culture Gram Stain - Final Blood Blood Culture - Final Daylin albicans 03/23/20 15:07 Blood Culture Gram Stain - Final Blood Blood Culture - Final Daylin albicans 03/23/20 17:07 Urine Culture - Final Urine,Voided Enterococcus faecalis 03/24/20 18:25 Blood Culture - Preliminary Blood No Growth after 24 hours 03/24/20 18:39 Blood Culture - Preliminary Blood No Growth after 24 hours 03/23/20 23:12 Blood Culture - Final Blood Assessment and Plan Assessment: Acute hypoxic respiratory failure with history of pulmonary fibrosis/COPD Urosepsis with obstructive uropathy with Acute kidney injury Fungemia Flank pain Diabetes mellitus Hypertension VQ scan was low probability for PE and heparin drip has been discontinued. Nick ous duplex was negative for DVT. Pulmonology has been consulted for further management. Covid testing is negative. Pro-calcitonin is elevated. Plans: She'll be kept on supplemental O2 to maintain O2 saturation greater than 92%. One dose of Lasix given today for pulmonary edema seen on chest x-ray. Patient does meet sepsis criteria. She has a leukocytosis and fever (now resolved). Urinalysis shows large leukocyte esterase. Urine culture shows group D enterococcus. Plans: Continue Unasyn. Urology consulted for obstructing calculus in the right UPJ with right-sided hydronephrosis, she is status post cystoscopy POD 1 with double-J stent placed on the right side. Follow ID consultation. Creatinine 2.52. Likely obstructive. Plans: Renal function improving after stent placement urology. Avoid nephrotoxins. Repeat BMP tomorrow morning. Blood culture growing yeast. Repeat blood culture negative at 24 hours. Plans: Continued on anidulafungin. Infectious disease on board. Repeat blood culture pending. Low dose of Percocet added for pain control. Plans to start insulin sliding-scale. Regular Accu-Cheks. Hypoglycemic precautions. Hold antihypertensive medication from home. [Patient admitted for hypoxic respiratory failure. Also found to have urosepsis. Fungemia on blood culture. She is pending clinical improvement.]
[2020-03-26 16:51] LABS: Glucose,Whole Blood 220 mg/dL (75-99)
[2020-03-26] MEDS: oxyCODONE-APAP 5-325MG 1 EACH TAB PO PRN (18:49)
[2020-03-26 20:57] LABS: Glucose,Whole Blood 244 mg/dL (75-99)
[2020-03-26] MEDS: ATORVASTATIN 40 MG TAB PO SCH (20:57)
[2020-03-26] MEDS: INSULIN DETEMIR (LEVEMIR) 100 UNIT/ML SYR SQ SCH (21:03)
[2020-03-26] MEDS: MELATONIN 5 MG TABLET PO PRN (23:16)
[2020-03-27] MEDS: oxyCODONE-APAP 5-325MG 1 EACH TAB PO PRN (01:37)
[2020-03-27 01:41] LABS: Glucose,Whole Blood 165 mg/dL (75-99)
[2020-03-27 05:03] LABS: Basophils % (A) 0 %; Eosinophils # (A) 0.2 k/uL (0-0.7); Eosinophils % (A) 2 %; HCT 31.6 % (34.0-46.0); HGB 9.7 gm/dL (11.4-16.0); Hypochromasia Slight; Lymphocytes # (A) 1.3 k/uL (1.0-4.8); Lymphocytes % (A) 13 %; MCH 30.6 pg (25.0-35.0); MCHC 30.7 g/dL (31.0-37.0); MCV 99.7 fL (80.0-100.0); Monocytes # (A) 0.3 k/uL (0-1.0); Monocytes % (A) 3 %; Neutrophils # (A) 8.5 k/uL (1.3-7.7); Neutrophils % (A) 82 %; Platelet Count 304 k/uL (150-450); RBC 3.17 m/uL (3.80-5.40); RDW 14.3 % (11.5-15.5); WBC 10.3 k/uL (3.8-10.6)
[2020-03-27 05:07] LABS: Calcium 7.9 mg/dL (8.4-10.2); Potassium 3.2 mmol/L (3.5-5.1)
[2020-03-27] MEDS: POTASSIUM CHLORIDE ER 20 MEQ TAB.ER PO SCH ×3 (06:15→23:50)
--- NOTE | 2020-03-27 06:48 | XR ---
EXAMINATION TYPE: XR chest 1V portable DATE OF EXAM: 03/27/2020 CLINICAL HISTORY: Difficulty breathing progress study. TECHNIQUE: Single AP portable upright view of the chest is obtained. COMPARISON: Chest x-ray from one day earlier and older studies. FINDINGS: Chronic parenchymal changes with bibasilar opacities remain present. Suspect stable small to tiny left pleural effusion. Cardiac silhouette size is stable and upper limits of normal with athe rosclerotic aorta. Osseous structures are demineralized. IMPRESSION: Overall stable findings, chronic parenchymal changes with bibasilar acute infiltrate an d/or atelectasis and small to tiny size left pleural effusion are all redemonstrated.
[2020-03-27 06:50] LABS: Glucose,Whole Blood 138 mg/dL (75-99)
[2020-03-27] MEDS: INSULIN ASPART (NovoLOG) 100 UNIT/ML VIAL SQ SCH ×7 (07:04→21:35)
[2020-03-27] MEDS: HEPARIN SODIUM,PORCINE 5,000 UNIT/ML 1 ML VIAL SQ SCH ×3 (08:22→23:50)
[2020-03-27] MEDS: ASPIRIN 81 MG PO SCH (08:22)
[2020-03-27] MEDS: ANIDULAFUNGIN 100 MG in SODIUM CHLORIDE 0.9% 100 ML IVPB SCH (08:22)
[2020-03-27] MEDS: CLOPIDOGREL 75 MG TAB PO SCH (08:22)
[2020-03-27] MEDS: atenoloL 25 MG TAB PO SCH ×2 (08:22→21:36)
--- NOTE | 2020-03-27 09:43 | P.PN ---
Subjective Progress Note Date: 03/27/20 This is 69-year-old female with history of diabetes, TIA and also carotid disease who was admitted with the above weakness, fatigue and a fall at home. Patient recently had a lithotripsy and she was found to be in acute renal failure. Patient has been short of breath and hypoxic. Patient had cystoscopy and insertion of the double-J stent of the right ureter. Blood culture showed yeast and has been on treatment. Currently, patient is maintaining sinus rhythm. She claims her breathing is better. Denies any chest pain. No arrhythmias Objective - Vital Signs Vital signs: Vital Signs Temp 97.8 F 03/27/20 04:00 Pulse 67 03/27/20 09:00 Resp 19 03/27/20 09:00 BP 91/48 03/27/20 09:00 Pulse Ox 90 L 03/27/20 09:00 Intake & Output 03/26/20 03/27/20 03/27/20 18:59 06:59 18:59 Intake Total 300 125 350 Output Total 760 875 400 Balance -460 -750 -50 Weight 80.4 kg Intake: IV 200 100 Anidulafungin 100 mg In 100 100 Sodium Chloride 0.9% 100 ml @ 84 mls/hr IVPB DAILY [facility] Rx#:[id number] Sodium Chloride 0.9% 1, 100 000 ml @ 50 mls/hr IV . Q20H [facility] Rx#:[id number] Intake, IV Titration 100 Amount Ampicillin-Sulbactam 3 gm 100 In Sodium Chloride 0.9% 100 ml @ 200 mls/hr IVPB Q24H [facility] Rx#:[id number] Oral 125 250 Output: Urine 760 875 400 Other: Voiding Method Bedpan Bedside Commode # Voids 1 0 1 # Bowel Movements 1 - Exam GENERAL EXAM: Patient is alert and oriented and doesn't appear to be in any acute distress HEENT: Normocephalic. Normal reaction of pupils, equal size, normal range of extraocular motion. No erythema or exudates in the throat. NECK: No masses, no nuchal rigidity. CHEST: No chest wall deformity. LUNGS: Equal air entry with no crackles or wheeze. HEART: S1 and S2 normal with no audible mumurs or gallops. Regular rhythm, femorals equal on both sides.. ABDOMEN: No hepatosplenomegaly, normal bowel sounds, no guarding or rigidity. SKIN: No rashes CENTRAL NERVOUS SYSTEM: No focal deficits. EXTREMITIES: No cyanosis, clubbing or edema. - Labs CBC & Chem 7: 03/27/20 04:24 03/27/20 04:24 Labs: Abnormal Lab Results - Last 24 Hours (Table) 03/26/20 03/26/20 03/26/20 Range/Units 11:24 16:50 20:55 RBC (3.80-5.40) m/uL Hgb (11.4-16.0) gm/dL Hct (34.0-46.0) % MCHC (31.0-37.0) g/dL Neutrophils # (1.3-7.7) k/uL Potassium (3.5-5.1) mmol/L Chloride (98-107) mmol/L Carbon Dioxide (22-30) mmol/L BUN (7-17) mg/dL Creatinine (0.52-1.04) mg/dL Glucose (74-99) mg/dL POC Glucose (mg/dL) 231 H 220 H 244 H (75-99) mg/dL Calcium (8.4-10.2) mg/dL 03/27/20 03/27/20 03/27/20 Range/Units 01:40 04:24 04:24 RBC 3.17 L (3.80-5.40) m/uL Hgb 9.7 L (11.4-16.0) gm/dL Hct 31.6 L (34.0-46.0) % MCHC 30.7 L (31.0-37.0) g/dL Neutrophils # 8.5 H (1.3-7.7) k/uL Potassium 3.2 L (3.5-5.1) mmol/L Chloride 96 L (98-107) mmol/L Carbon Dioxide 33 H (22-30) mmol/L BUN 64 H (7-17) mg/dL Creatinine 1.98 H (0.52-1.04) mg/dL Glucose 155 H (74-99) mg/dL POC Glucose (mg/dL) 165 H (75-99) mg/dL Calcium 7.9 L (8.4-10.2) mg/dL 03/27/20 Range/Units 06:48 RBC (3.80-5.40) m/uL Hgb (11.4-16.0) gm/dL Hct (34.0-46.0) % MCHC (31.0-37.0) g/dL Neutrophils # (1.3-7.7) k/uL Potassium (3.5-5.1) mmol/L Chloride (98-107) mmol/L Carbon Dioxide (22-30) mmol/L BUN (7-17) mg/dL Creatinine (0.52-1.04) mg/dL Glucose (74-99) mg/dL POC Glucose (mg/dL) 138 H (75-99) mg/dL Calcium (8.4-10.2) mg/dL Microbiology - Last 24 Hours (Table) 03/24/20 18:39 Blood Culture - Final Blood 03/24/20 18:25 Blood Culture - Preliminary Blood No Growth after 48 hours 03/23/20 23:12 Blood Culture Gram Stain - Final Blood Blood Culture - Final Daylin albicans 03/23/20 15:07 Blood Culture Gram Stain - Final Blood Blood Culture - Final Daylin albicans Assessment and Plan (1) Acute renal failure Current Visit: Yes Status: Acute Code(s): N17.9 - ACUTE KIDNEY FAILURE, UNSPECIFIED SNOMED Code(s): 60137334 (2) Candidemia Current Visit: Yes Status: Acute Code(s): B37.7 - CANDIDAL SEPSIS SNOMED Code(s): 888204929 (3) Atrial fibrillation with RVR Current Visit: No Status: Acute Code(s): I48.91 - UNSPECIFIED ATRIAL FIBRILLATION SNOMED Code(s): 961340112127101 (4) Nephrolithiasis Current Visit: No Status: Acute Code(s): N20.0 - CALCULUS OF KIDNEY SNOMED Code(s): 35348070 (5) Elevated troponin level Current Visit: Yes Status: Acute Code(s): R79.89 - OTHER SPECIFIED ABNORMAL FINDINGS OF BLOOD CHEMISTRY SNOMED Code(s): 866199585 Plan: Patient seemed to be getting better. Currently will stay on the current medical therapy. She will require outpatient testing to rule out underlying ischemic heart disease
[2020-03-27] MEDS ORDERED: Potassium Replacement Protocol 1 EACH MISC MISCELLANE PRN (09:59)
--- NOTE | 2020-03-27 11:14 | PN ---
PROGRESS NOTE DATE OF SERVICE: 03/26/2020 REASON FOR FOLLOWUP: Candidemia, secondary to urinary source. INTERVAL HISTORY: Patient is currently afebrile. The patient is feeling better. Breathing comfortably. Denies having any chest pain. No shortness of breath or cough. No nausea, vomiting. No abdominal pain or diarrhea. PHYSICAL EXAMINATION: Blood pressure 122/65 with a pulse of 60, temperature 97.7, she is 95% on 6 L. General description is an elderly female, lying in bed in no distress. RESPIRATORY SYSTEM: Unlabored breathing, clear to auscultation anteriorly. HEART: S1, S2. Regular rate and rhythm. ABDOMEN: Soft, no tenderness. LABS: Hemoglobin 9.1, white count 10.9, BUN of 58, creatinine 2.52. Blood cultures 03/24 so far negative. Blood culture 03/23 was positive for Daylin albicans. Urine is Enterococcus faecalis. DIAGNOSTIC IMPRESSION AND PLAN: Patient with sepsis with evidence of candidemia source is urinary, in this patient currently covered with Eraxis. Diflucan could not be used because of the medication she is on will interact with them. Keep the patient on Eraxis along with Unasyn and monitor clinical course closely. Continue supportive care. MMODL / IJN: [id number] /
[2020-03-27] MEDS: AMPICILLIN-SULBACTAM 3 GM in SODIUM CHLORIDE 0.9% 100 ML IVPB SCH ×2 (11:51→23:51)
[2020-03-27 11:56] LABS: Glucose,Whole Blood 174 mg/dL (75-99)
--- NOTE | 2020-03-27 12:30 | P.PN ---
Subjective Progress Note Date: 03/27/20 69-year-old female patient presented to the hospital because of generalized weakness and shortness of breath. She states that her condition got worse after she underwent a lithotripsy procedure last week. Since then, the patient's been feeling progressively more short of breath, more tired and she's been getting short of breath with limited amount of activity. No orthopnea. No paroxysmal nocturnal dyspnea. No swelling lower extremities. She initially went to [facility] where she was found to be hypoxic. Chest x-ray was within normal limits and the blood work showed an acute kidney injury. She was also found to have some elevation in troponins and she got transferred to our [facility]. She came in to us on oxygen at 5 L per minute nasal cannula. She was started on IV heparin. Further workup was done and the patient was found to have a d-dimer of 4.5, a creatinine of 3.77, troponins were 0.034 0.03 respectively 2, proBNP level was 6460, and the white cell count was at 8.3 with a hemoglobin of 9.9. The chest x-ray showed interstitial pulmonary infiltrates bilateral along with cardiomegaly. No pleural effusion. No hilar masses. The Doppler of the lower extremity is a been negative for DVTs. The VQ scan came back negative or low probability for pulmonary embolism as there was some mesh defects in the upper lobes bilaterally. The patient is currently afebrile. She is currently on 4 L of oxygen by nasal cannula with a pulse is 99-100%. Her EKG shows normal sinus rhythm. Echocardiogram showed normal ejection fraction of 50-55%. Grade 1 diastolic dysfunction. Mild MR. No pericardial effusion. No evidence of any pulmonary hypertension. There is evidence of grade 1 diastolic dysfunction. On today's evaluation of 03/24/2020, the patient is doing well. She got transferred to the intensive care unit yesterday the patient was becoming a bit more short of breath yesterday. I was concerned of her respiratory status and the patient got transferred to the intensive care units. Note that I was also concerned about obstructive uropathy and urosepsis. The patient was given a CAT scan of the abdomen and pelvis and the patient was found to have a right kidney hydronephrosis and a Obstructing the right ureter. Urology consultation was obtained. Creatinine is still elevated at 3.6 with a BUN of 58 and the patient continues to be on a bicarb infusion with 150 mEq of sodium bicarbonate running at 100 mL an hour. The urine analysis and urine culture are still pending. Blood cultures still pending. Noted the patient was having episodes of fever throughout the night and the patient was covered with IV Rocephin. T-max was 103.1. Cover test was also done and the patient was placed in interrupted isolation. No nausea. No vomiting. No abdominal pain. No hematuria. Gregg cath is in place. She is currently on 6 L of oxygen by nasal cannula with a pulse of 74%. 03/25/2020, I'm seeing the patient for a follow-up. The patient was diagnosed having systemic fungal anemia as the blood culture that was obtained at [facility] showed yeast in 2 out of 2 cultures. The patient was started on Eraxis as an antifungal agent. Meanwhile, the urine culture also positive for Enterococcus group D and the patient is also on Unasyn. I had a discussion with infectious disease. I also discussed the case with urology. Th e patient has a obstructive calculus in the right ureter. The patient was taken to the operating room and the patient underwent a cystoscopy and placement of a right double-J catheter by urology. The procedure was tolerated well. After arriving back to the ICU, the patient was found to be slightly bronchus spastic and wheezy and she was given bronchodilators and she was given a dose of Solu-Medrol. She is currently hemodynamically stable. BUN is a 59 with a creatinine of 3.4. White cycles of 9.2 with a hemoglobin of 8.7. She is on 8 L of oxygen by nasal cannula with a pulse ox of 93%. A chest x-ray coarse interstitial markings that are present some interstitial edema and small bilate ral pleural effusions. She was given a dose of Lasix 40 mg IV push prior to her going to the operating room and this was given to her by Dr. Riley. The echocardiogram showed a preserved LV function with an ejection fraction of 50- 55%. She is awake and alert. She is lethargic pH is following simple commands. 03/26/2020, the patient is feeling much better. She underwent a double-J stent placement on the right and the patient is improved since then in the urine output is improved and the patient creatinine is also on the decline. Her creatinine is down to 2.5. The patient is also improving in terms of her breathing. She was on high flow oxygen 15 L and currently she is being weaned down to 6 L about 2 by nasal cannula. She was seen by nephrology earlier and she was kept on IV fluids to KVO and the patient was given a dose of Lasix 40 mg IV push. For now, the patient has yeast in her blood and the patient on Eraxis the patient also has Enterococcus faecalis in her urine currently on IV Unasyn. No fever. No chills. Appetite is improved. His strength is improved. No body aches. Mentation is much improved compared to yesterday. Discussed the case with urology. The patient will need to be having further procedures once her sepsis is improved to remove the right ureter stone. For now she has a double-J catheter in place. No other complaints otherwise for now. 03/27/2020, I'm seeing the patient for a follow-up. The patient is awake and alert. The patient is not having any fever. The 2 separate blood cultures that were sent came back positive for Daylin albicans and the patient continues to be on Eraxis. No side effects to the medication. The patient is also on IV Unasyn regarding enterococcus faecalis in the urine. No body aches or generalized weakness. Mental status is improved significantly. The patient continues to have some degree of hypoxemia. She was unable to wear her nasal cannula and for that reason she was placed on a Ventimask. The patient is currently on a 5% Ventimask and her pulse ox around 90-94%. Chest x-ray still showing some interstitial infiltrates bilaterally. The patient was given a dose of Lasix yesterday. Right fluids were cut down. Kidney function is gradually improving and the creatinine is down to 1.98 with a BUN of 64. The bicarb level is at 33. Hemoglobin is at 9.7. No altered mentation. According to the nursing staff, she seems to be appropriate. She is post double-J catheter insertion of the right kidney and the patient is a negative fluid balance of 1.2 L over the past 24 hours. Objective - Vital Signs Vital signs: Vital Signs Temp 97.8 F 03/27/20 04:00 Pulse 68 03/27/20 11:00 Resp 18 03/27/20 11:00 BP 104/90 03/27/20 11:00 Pulse Ox 93 L 03/27/20 11:00 Intake & Output 03/26/20 03/27/20 03/27/20 18:59 06:59 18:59 Intake Total 300 125 350 Output Total 760 875 400 Balance -460 -750 -50 Weight 80.4 kg Intake: IV 200 100 Anidulafungin 100 mg In 100 100 Sodium Chloride 0.9% 100 ml @ 84 mls/hr IVPB DAILY JOSEPH Rx#:[id number] Sodium Chloride 0.9% 1, 100 000 ml @ 50 mls/hr IV . Q20H JOSEPH Rx#:[id number] Intake, IV Titration 100 Amount Ampicillin-Sulbactam 3 gm 100 In Sodium Chloride 0.9% 100 ml @ 200 mls/hr IVPB Q24H JOSEPH Rx#:[id number] Oral 125 250 Output: Urine 760 875 400 Other: Voiding Method Bedpan Bedside Commode Bedside Commode # Voids 1 0 1 # Bowel Movements 1 1 - Exam The patient appeared well nourished and normally developed. She is a bit lethargic this morning as the patient arrived from the operating room. She is currently on 6L of oxygen by nasal cannula. No cervical rest or distress and she is not using excessive muscle breathing. Vital signs as documented. Head exam is unremarkable. No scleral icterus or corneal arcus noted. Neck is without jugular venous distension, thyromegaly, or carotid bruits. Carotid upstrokes are brisk bilaterally. Lungs are diminished in lung bases bilaterally along with some few crackles. Cardiac exam reveals the PMI to be normally sized and situated. Rhythm is regular. First and second heart sounds normal. No murmurs, rubs or gallops. Abdominal exam reveals normal bowel sounds, no masses, no organomegaly and no aortic enlargement. Extremities are nonedematous and both femoral and pedal pulses are normal. Examination of the skin revealed no ev idence of significant rashes, suspicious appearing nevi or other concerning lesions.Neurologically, the patient is awake and alert and the patient does not have any focal neurological deficit. Cranial nerves are essentially intact. - Labs CBC & Chem 7: 03/27/20 04:24 03/27/20 04:24 Labs: Abnormal Lab Results - Last 24 Hours (Table) 03/26/20 03/26/20 03/27/20 Range/Units 16:50 20:55 01:40 RBC (3.80-5.40) m/uL Hgb (11.4-16.0) gm/dL Hct (34.0-46.0) % MCHC (31.0-37.0) g/dL Neutrophils # (1.3-7.7) k/uL Potassium (3.5-5.1) mmol/L Chloride (98-107) mmol/L Carbon Dioxide (22-30) mmol/L BUN (7-17) mg/dL Creatinine (0.52-1.04) mg/dL Glucose (74-99) mg/dL POC Glucose (mg/dL) 220 H 244 H 165 H (75-99) mg/dL Calcium (8.4-10.2) mg/dL 03/27/20 03/27/20 03/27/20 Range/Units 04:24 04:24 06:48 RBC 3.17 L (3.80-5.40) m/uL Hgb 9.7 L (11.4-16.0) gm/dL Hct 31.6 L (34.0-46.0) % MCHC 30.7 L (31.0-37.0) g/dL Neutrophils # 8.5 H (1.3-7.7) k/uL Potassium 3.2 L (3.5-5.1) mmol/L Chloride 96 L (98-107) mmol/L Carbon Dioxide 33 H (22-30) mmol/L BUN 64 H (7-17) mg/dL Creatinine 1.98 H (0.52-1.04) mg/dL Glucose 155 H (74-99) mg/dL POC Glucose (mg/dL) 138 H (75-99) mg/dL Calcium 7.9 L (8.4-10.2) mg/dL 03/27/20 Range/Units 11:54 RBC (3.80-5.40) m/uL Hgb (11.4-16.0) gm/dL Hct (34.0-46.0) % MCHC (31.0-37.0) g/dL Neutrophils # (1.3-7.7) k/uL Potassium (3.5-5.1) mmol/L Chloride (98-107) mmol/L Carbon Dioxide (22-30) mmol/L BUN (7-17) mg/dL Creatinine (0.52-1.04) mg/dL Glucose (74-99) mg/dL POC Glucose (mg/dL) 174 H (75-99) mg/dL Calcium (8.4-10.2) mg/dL Microbiology - Last 24 Hours (Table) 03/24/20 18:25 Blood Culture - Final Blood 03/24/20 18:25 Blood Culture Gram Stain - Preliminary Blood 03/24/20 18:39 Blood Culture Gram Stain - Preliminary Blood 03/24/20 18:39 Blood Culture - Final Blood 03/23/20 23:12 Blood Culture Gram Stain - Final Blood Blood Culture - Final Daylin albicans 03/23/20 15:07 Blood Culture Gram Stain - Final Blood Blood Culture - Final Daylin albicans Assessment and Plan Plan: 1 acute kidney injury, , the patient has obstructive uropathy with a renal stone obstructing the ureter with right kidney hydronephrosis, the patient is post double-J stent insertion on the right with subsequent improvement in the urine output and the renal function and the creatinine continues to improve is currently down to 1.98. The patient has no major electrodes imbalance this point in time. Renal function continues to improve. 2 systemic candidiasis as the patient's blood cultures positive for Daylin albicans 2 sets of blood cultures, currently on Eraxis. We are watching for toxicity we'll continue monitoring the liver function tests were the patient is on Eraxis. 3 acute hypoxic respiratory failure improving and I suspect that the patient had a component of acute lung injury secondary to her sepsis and fungemia. She was on nasal cannula which she was unable to tolerate and the patient was placed on a Ventimask at 35%. Chest x-ray from today still showing some limited bilateral pulmonary infiltrates. 4 Enterococcus faecalis in the urine currently on IV Unasyn 5 history of nephrolithiasis post lithotripsy 6 diabetes mellitus type 2 7 hypertension 8 history of carotid artery disease with previous history of CVA. The patient has undergone bilateral endarterectomies 9 previous history of pneumonia right-sided involving the right lung 10 episodic fever secondary to above my improved Plan Patient is recovering from her systemic on fungemia which was related to Daylin albicans Continue Unasyn and Eraxis No need for pressors Wean down the FiO2 as tolerated to maintain saturation above 90% , Echocardiogram was noted. No evidence of any regurgitation based on transthoracic echocardiogram Monitor renal function Which is improving and creatinine is down to 1.98 IV fluids to KVO With asked the patient to sit up on a chair if possible and continue using incentive spirometer. We'll continue to follow
--- NOTE | 2020-03-27 13:47 | PN ---
PROGRESS NOTE Patient is seen for followup for acute kidney injury. The patient's renal function continues to improve. Serum creatinine is down to 1.98 from peak of about 3.6 mg/dL. She currently has good urine output with 24 hour urine output of about 2.2 L. The patient has fair oral intake. She is currently not on any IV fluids or diuretics. PHYSICAL EXAMINATION: On examination today, blood pressure 104/90, heart rate 66 per minute. She is afebrile. Examination of the heart S1, S2. Examination of the lungs, bilateral breath sounds are heard. Abdomen is soft, nontender. Examination of lower extremities shows no significant edema. CLOAK ROOM ATTENDANT exam grossly intact. LAB: Show sodium 137, potassium 3.2, chloride 96, CO2 is 33, BUN 64, creatinine 1.98, hemoglobin 9.7 g/dL. ASSESSMENT: 1. Acute kidney injury, acute tubular necrosis and some degree of obstructive uropathy, currently improving; nonsteroidal anti-inflammatory agents also added to the acute kidney injury. The patient is status post cystoscopy and ureteral stent placement on March 25. 2. Right hydronephrosis status post stent placement March 25. 3. Chronic kidney disease stage 3 secondary to diabetic kidney disease, baseline creatinine 1-1.2. 4. Metabolic acidosis associated with renal failure as well as GI fluid losses, now improved. 5. Urinary tract infection, maintained on antibiotics. 6. Fungemia, maintained on antifungals treatment. PLAN: Continue to encourage increased oral intake. Repeat labs in a.m. Continue to avoid nephrotoxic agents. MMODL / IJN: [id number] /
[2020-03-27 16:46] LABS: Glucose,Whole Blood 194 mg/dL (75-99)
--- NOTE | 2020-03-27 17:07 | PN ---
PROGRESS NOTE DATE OF SERVICE: 03/27/2020 REASON FOR FOLLOWUP: Candidemia secondary to complicated UTI. INTERVAL HISTORY: The patient is currently afebrile. The patient is breathing comfortably. Denies having any chest pain. No shortness of breath or cough. No nausea, no vomiting. No abdominal pain, no diarrhea. PHYSICAL EXAMINATION: Blood pressure 104/90 with a pulse of 66, temperature 98.1 she is 91% on 6 L nasal cannula. General description is an elderly female, up in the bed, in no distress. RESPIRATORY SYSTEM: Unlabored breathing, clear to auscultation anteriorly. HEART: S1, S2. Regular rate and rhythm. ABDOMEN: Soft. No tenderness. LABS: Hemoglobin 9.1, white count 10.3, BUN of 64, creatinine 1.98. Bronch cultures were positive for yeast as of . IMPRESSION/PLAN: Patient with candidemia. Source is complicated UTI in this patient who is status post cystoscopy and ureteral stent placement. Blood culture repeated and will be repeated tomorrow. Again, has plan on getting a negative blood cultures before placing a midline for outpatient antibiotic, which has been discussed with the correctional case manager. Continue with Eraxis and Aliciasyn at this point and monitor clinical course closely. MMODL / IJN: [id number] /
[2020-03-27] MEDS ORDERED: FUROSEMIDE 10 MG/ML 4 ML VIAL IV STA (17:42)
--- NOTE | 2020-03-27 17:47 | P.PN ---
Subjective Progress Note Date: 03/27/20 This is a 69-year-old female with PMH of paroxysmal atrial fibrillation that presented to the ED for generalized weakness. She had recently underwent lithotripsy to remove some kidney stones. After her procedure, patient reported progressive shortness of breath that has been getting worse even to the point of minimal exertion. She went to [facility], where she was found to be hypoxic. CTA of the chest cannot be performed at that time due to acute kidney injury. She was found to have elevated troponins and transferred to [facility] for further management. In the ED, she was hypoxic to the mid 80s on room air and required 5 L of O2 to maintain oxygen saturation. Chest x-ray was negative for acute findings. Her d-dimer was elevated along with her troponins and she was initially admitted to rule out PE versus an STEMI. She was initially started on heparin drip, VQ scan was performed which showed low probability of PE, heparin drip was discontinued. Her troponins were trended and remained flat, acute coronary syndrome was ruled out. There is concerns of obstructive uropathy and possible sepsis related to urinary source given her recent lithotripsy. Urinalysis showed large leukocyte esterase. She was started on Rocephin and renal ultrasound was obtained. Renal ultrasound showed mild right-sided hydronephrosis and small nephrolithiasis. Urology, infectious disease and nephrology was consulted. Nephrology recommended sodium bicarbonate drip as she was acidotic with bicarb of 16. Her lactic acid was negative. She underwent cystoscopy and placement of right double-J catheter for right-sided hydronephrosis on March 25. Her creatinine trended down after her procedure. Her urine culture finalized Enterococcus faecalis. ID recommended switching Rocephin to Unasyn. Her blood culture was positive for Daylin albicans and she was started on anidulafungin. Repeat blood culture was negative. Patient continued to show improvement during her hospital stay. There has been some difficulty weaning oxygen and she has been given Lasix in termittently for pulmonary edema seen on chest x-ray. Patient was seen and examined. Patient reports improvement in right-sided flank pain. States that breathing has improved. She complains of some nausea. She denies any chest pain, or palpitations. No nausea or vomiting. No fever or chills. Objective - Vital Signs Vital signs: Vital Signs Temp 98.1 F 03/27/20 12:00 Pulse 74 03/27/20 16:00 Resp 13 03/27/20 16:00 BP 130/63 03/27/20 17:00 Pulse Ox 97 03/27/20 17:00 Intake & Output 03/26/20 03/27/20 03/27/20 18:59 06:59 18:59 Intake Total 300 125 350 Output Total 760 875 400 Balance -460 -750 -50 Weight 80.4 kg Intake: IV 200 100 Anidulafungin 100 mg In 100 100 Sodium Chloride 0.9% 100 ml @ 84 mls/hr IVPB DAILY JOSEPH Rx#:[id number] Sodium Chloride 0.9% 1, 100 000 ml @ 50 mls/hr IV . Q20H [facility]SEPH Rx#:[id number] Intake, IV Titration 100 Amount Ampicillin-Sulbactam 3 gm 100 In Sodium Chloride 0.9% 100 ml @ 200 mls/hr IVPB Q24H [facility]SEPH Rx#:[id number] Oral 125 250 Output: Urine 760 875 400 Other: Voiding Method Bedpan Bedside Commode Bedside Commode # Voids 1 0 2 # Bowel Movements 1 1 - Exam General: [non toxic], [no distress], [appears at stated age] Derm: [warm], [dry] Head: [atraumatic], [normocephalic], [symmetric] Eyes: [EOMI], [no lid lag], [anicteric sclera] Mouth: [no lip lesion], [mucus membranes moist] Cardiovascular: [S1S2 reg], [no murmur], [positive DP pulse bilateral], Lungs: [Decreased breath sounds bilateral], [no rhonchi, no rales] , [no accessory muscle use] Abdominal: [soft], [ nontender to palpation], [no guarding], [no appreciable organomegaly], right-sided CVA tenderness Ext: [no gross muscle atrophy], [no edema], [no contractures] Neuro: [no focal neuro deficits] Psych: [Alert], [oriented], [appropriate affect] - Labs CBC & Chem 7: 03/27/20 04:24 03/27/20 04:24 Labs: Abnormal Lab Results - Last 24 Hours (Table) 03/26/20 03/27/20 03/27/20 Range/Units 20:55 01:40 04:24 RBC 3.17 L (3.80-5.40) m/uL Hgb 9.7 L (11.4-16.0) gm/dL Hct 31.6 L (34.0-46.0) % MCHC 30.7 L (31.0-37.0) g/dL Neutrophils # 8.5 H (1.3-7.7) k/uL Potassium (3.5-5.1) mmol/L Chloride (98-107) mmol/L Carbon Dioxide (22-30) mmol/L BUN (7-17) mg/dL Creatinine (0.52-1.04) mg/dL Glucose (74-99) mg/dL POC Glucose (mg/dL) 244 H 165 H (75-99) mg/dL Calcium (8.4-10.2) mg/dL 03/27/20 03/27/20 03/27/20 Range/Units 04:24 06:48 11:54 RBC (3.80-5.40) m/uL Hgb (11.4-16.0) gm/dL Hct (34.0-46.0) % MCHC (31.0-37.0) g/dL Neutrophils # (1.3-7.7) k/uL Potassium 3.2 L (3.5-5.1) mmol/L Chloride 96 L (98-107) mmol/L Carbon Dioxide 33 H (22-30) mmol/L BUN 64 H (7-17) mg/dL Creatinine 1.98 H (0.52-1.04) mg/dL Glucose 155 H (74-99) mg/dL POC Glucose (mg/dL) 138 H 174 H (75-99) mg/dL Calcium 7.9 L (8.4-10.2) mg/dL 03/27/20 Range/Units 16:44 RBC (3.80-5.40) m/uL Hgb (11.4-16.0) gm/dL Hct (34.0-46.0) % MCHC (31.0-37.0) g/dL Neutrophils # (1.3-7.7) k/uL Potassium (3.5-5.1) mmol/L Chloride (98-107) mmol/L Carbon Dioxide (22-30) mmol/L BUN (7-17) mg/dL Creatinine (0.52-1.04) mg/dL Glucose (74-99) mg/dL POC Glucose (mg/dL) 194 H (75-99) mg/dL Calcium (8.4-10.2) mg/dL Microbiology - Last 24 Hours (Table) 03/24/20 18:25 Blood Culture - Final Blood 03/24/20 18:25 Blood Culture Gram Stain - Preliminary Blood 03/24/20 18:39 Blood Culture Gram Stain - Preliminary Blood 03/24/20 18:39 Blood Culture - Final Blood Assessment and Plan Assessment: Acute hypoxic respiratory failure with history of pulmonary fibrosis/COPD Urosepsis with obstructive uropathy Acute kidney injury Hypokalemia Fungemia Flank pain Diabetes mellitus Hypertension VQ scan was low probability for PE and heparin drip has been discontinued. Venous duplex was negative for DVT. Pulmonology has been consulted for further management. Covid testing is negative. Pro-calcitonin is elevated. Plans: She'll be kept on supplemental O2 to maintain O2 saturation greater than 92%. One dose of Lasix given today for pulmonary edema seen on chest x-ray. Patient does meet sepsis criteria. She had a leukocytosis and fever (now resolved). Urinalysis shows large leukocyte esterase. Urine culture shows group D enterococcus. Plans: Continue Unasyn. Urology consulted for obstructing calculus in the right UPJ with right-sided hydronephrosis, she is status post cystoscopy POD 2 with double-J stent placed on the right side. Follow ID consultation. Creatinine 3.77 at its peak to 1.98 today. Likely obstructive. Plans: Renal function improving after stent placement urology. Avoid nephrotoxins. Repeat BMP tomorrow morning. Potassium 3.2. Plans: Replace via protocol. Repeat BMP tomorrow morning. Blood culture growing Daylin albicans. Repeat blood culture showing yeast. Plans: Continued on anidulafungin. Infectious disease on board. Repeat blood c ulture tomorrow. Low dose of Percocet added for pain control. Plans to start insulin sliding-scale. Regular Accu-Cheks. Hypoglycemic precautions. Hold antihypertensive medication from home. [Patient admitted for hypoxic respiratory failure, attempting to wean oxygen, requiring intermittent Lasix. Also found to have urosepsis, post cystoscopy and double-J stent placement, improving. Fungemia on blood culture even on repeat, on antifungal, obtain blood culture tomorrow. Will likely need SANTOS on discharge.]
[2020-03-27 20:44] LABS: Glucose,Whole Blood 192 mg/dL (75-99)
[2020-03-27] MEDS ORDERED: QUEtiapine 25 MG TAB PO SCH (21:00)
[2020-03-27] MEDS: INSULIN DETEMIR (LEVEMIR) 100 UNIT/ML SYR SQ SCH (21:35)
[2020-03-27] MEDS: ATORVASTATIN 40 MG TAB PO SCH (21:36)
[2020-03-28] MEDS: POTASSIUM CHLORIDE ER 20 MEQ TAB.ER PO SCH (00:40)
[2020-03-28] MEDS ORDERED: HALOPERIDOL LACTATE 5 MG/ML 1 ML VIAL IM STA (00:44)
[2020-03-28] MEDS ORDERED: HALOPERIDOL LACTATE 5 MG/ML 1 ML VIAL ONE (00:49)
[2020-03-28 06:36] LABS: Basophils % (A) 0 %; Eosinophils # (A) 0.3 k/uL (0-0.7); Eosinophils % (A) 3 %; HCT 33.8 % (34.0-46.0); HGB 10.4 gm/dL (11.4-16.0); Hypochromasia Slight; Lymphocytes # (A) 1.4 k/uL (1.0-4.8); Lymphocytes % (A) 15 %; MCH 30.5 pg (25.0-35.0); MCHC 30.7 g/dL (31.0-37.0); MCV 99.3 fL (80.0-100.0); Mean Platelet Volume 7.7; Monocytes # (A) 0.4 k/uL (0-1.0); Monocytes % (A) 4 %; Neutrophils # (A) 7.2 k/uL (1.3-7.7); Neutrophils % (A) 76 %; Platelet Count 363 k/uL (150-450); RBC 3.41 m/uL (3.80-5.40); RDW 14.2 % (11.5-15.5); WBC 9.5 k/uL (3.8-10.6)
[2020-03-28 06:52] LABS: Calcium 8.2 mg/dL (8.4-10.2); Potassium 3.6 mmol/L (3.5-5.1)
[2020-03-28 09:01] LABS: Glucose,Whole Blood 156 mg/dL (75-99)
[2020-03-28] MEDS: INSULIN ASPART (NovoLOG) 100 UNIT/ML VIAL SQ SCH ×7 (09:01→20:52)
[2020-03-28] MEDS: HEPARIN SODIUM,PORCINE 5,000 UNIT/ML 1 ML VIAL SQ SCH ×2 (09:04→16:36)
[2020-03-28] MEDS: ASPIRIN 81 MG PO SCH (09:05)
[2020-03-28] MEDS: ANIDULAFUNGIN 100 MG in SODIUM CHLORIDE 0.9% 100 ML IVPB SCH (09:05)
[2020-03-28] MEDS: CLOPIDOGREL 75 MG TAB PO SCH (09:05)
[2020-03-28] MEDS: atenoloL 25 MG TAB PO SCH ×2 (09:08→20:53)
[2020-03-28] MEDS ORDERED: QUEtiapine 100 MG TAB PO SCH (09:23)
[2020-03-28] MEDS: AMPICILLIN-SULBACTAM 3 GM in SODIUM CHLORIDE 0.9% 100 ML IVPB SCH (11:26)
--- NOTE | 2020-03-28 12:05 | P.PN ---
Subjective Progress Note Date: 03/28/20 69-year-old female patient presented to the hospital because of generalized weakness and shortness of breath. She states that her condition got worse after she underwent a lithotripsy procedure last week. Since then, the patient's been feeling progressively more short of breath, more tired and she's been getting short of breath with limited amount of activity. No orthopnea. No paroxysmal nocturnal dyspnea. No swelling lower extremities. She initially went to [facility] where she was found to be hypoxic. Chest x-ray was within normal limits and the blood work showed an acute kidney injury. She was also found to have some elevation in troponins and she got transferred to our [facility]. She came in to us on oxygen at 5 L per minute nasal cannula. She was started on IV heparin. Further workup was done and the patient was found to have a d-dimer of 4.5, a creatinine of 3.77, troponins were 0.034 0.03 respectively 2, proBNP level was 6460, and the white cell count was at 8.3 with a hemoglobin of 9.9. The chest x-ray showed interstitial pulmonary infiltrates bilateral along with cardiomegaly. No pleural effusion. No hilar masses. The Doppler of the lower extremity is a been negative for DVTs. The VQ scan came back negative or low probability for pulmonary embolism as there was some mesh defects in the upper lobes bilaterally. The patient is currently afebrile. She is currently on 4 L of oxygen by nasal cannula with a pulse is 99-100%. Her EKG shows normal sinus rhythm. Echocardiogram showed normal ejection fraction of 50-55%. Grade 1 diastolic dysfunction. Mild MR. No pericardial effusion. No evidence of any pulmonary hypertension. There is evidence of grade 1 diastolic dysfunction. On today's evaluation of 03/24/2020, the patient is doing well. She got transferred to the intensive care unit yesterday the patient was becoming a bit more short of breath yesterday. I was concerned of her respiratory status and the patient got transferred to the intensive care units. Note that I was also concerned about obstructive uropathy and urosepsis. The patient was given a CAT scan of the abdomen and pelvis and the patient was found to have a right kidney hydronephrosis and a Obstructing the right ureter. Urology consultation was obtained. Creatinine is still elevated at 3.6 with a BUN of 58 and the patient continues to be on a bicarb infusion with 150 mEq of sodium bicarbonate running at 100 mL an hour. The urine analysis and urine culture are still pending. Blood cultures still pending. Noted the patient was having episodes of fever throughout the night and the patient was covered with IV Rocephin. T-max was 103.1. Cover test was also done and the patient was placed in interrupted isolation. No nausea. No vomiting. No abdominal pain. No hematuria. Gregg cath is in place. She is currently on 6 L of oxygen by nasal cannula with a pulse of 74%. 03/25/2020, I'm seeing the patient for a follow-up. The patient was diagnosed having systemic fungal anemia as the blood culture that was obtained at [facility] showed yeast in 2 out of 2 cultures. The patient was started on Eraxis as an antifungal agent. Meanwhile, the urine culture also positive for Enterococcus group D and the patient is also on Unasyn. I had a discussion with infectious disease. I also discussed the case with urology. Th e patient has a obstructive calculus in the right ureter. The patient was taken to the operating room and the patient underwent a cystoscopy and placement of a right double-J catheter by urology. The procedure was tolerated well. After arriving back to the ICU, the patient was found to be slightly bronchus spastic and wheezy and she was given bronchodilators and she was given a dose of Solu-Medrol. She is currently hemodynamically stable. BUN is a 59 with a creatinine of 3.4. White cycles of 9.2 with a hemoglobin of 8.7. She is on 8 L of oxygen by nasal cannula with a pulse ox of 93%. A chest x-ray coarse interstitial markings that are present some interstitial edema and small bilate ral pleural effusions. She was given a dose of Lasix 40 mg IV push prior to her going to the operating room and this was given to her by Dr. Riley. The echocardiogram showed a preserved LV function with an ejection fraction of 50- 55%. She is awake and alert. She is lethargic pH is following simple commands. 03/26/2020, the patient is feeling much better. She underwent a double-J stent placement on the right and the patient is improved since then in the urine output is improved and the patient creatinine is also on the decline. Her creatinine is down to 2.5. The patient is also improving in terms of her breathing. She was on high flow oxygen 15 L and currently she is being weaned down to 6 L about 2 by nasal cannula. She was seen by nephrology earlier and she was kept on IV fluids to KVO and the patient was given a dose of Lasix 40 mg IV push. For now, the patient has yeast in her blood and the patient on Eraxis the patient also has Enterococcus faecalis in her urine currently on IV Unasyn. No fever. No chills. Appetite is improved. His strength is improved. No body aches. Mentation is much improved compared to yesterday. Discussed the case with urology. The patient will need to be having further procedures once her sepsis is improved to remove the right ureter stone. For now she has a double-J catheter in place. No other complaints otherwise for now. 03/27/2020, I'm seeing the patient for a follow-up. The patient is awake and alert. The patient is not having any fever. The 2 separate blood cultures that were sent came back positive for Daylin albicans and the patient continues to be on Eraxis. No side effects to the medication. The patient is also on IV Unasyn regarding enterococcus faecalis in the urine. No body aches or generalized weakness. Mental status is improved significantly. The patient continues to have some degree of hypoxemia. She was unable to wear her nasal cannula and for that reason she was placed on a Ventimask. The patient is currently on a 5% Ventimask and her pulse ox around 90-94%. Chest x-ray still showing some interstitial infiltrates bilaterally. The patient was given a dose of Lasix yesterday. Right fluids were cut down. Kidney function is gradually improving and the creatinine is down to 1.98 with a BUN of 64. The bicarb level is at 33. Hemoglobin is at 9.7. No altered mentation. According to the nursing staff, she seems to be appropriate. She is post double-J catheter insertion of the right kidney and the patient is a negative fluid balance of 1.2 L over the past 24 hours. 03/28/2020, the patient is awake and alert. She follows commands and answers questions. However she is confused at times and she is also having some paranoid ideations. She is giving us conflicting information about her . She tells us that she has been abused her essentially a hoarder. At other times, she tells us that he is a nice gentleman and she wanted. At the same time, she tells us that there is a conspiracy being set up against her. She is not wearing her oxygen consistently and once she is off the oxygen and pulse ox dropping in the mid 70s. We'll try to give her nasal cannula and later on a Ventimask and she has declined everything. Was trying to supplement her oxygen 90 that she responds easily to oxygen therapy whether it's a nasal cannula or Ventimask. She is afebrile. The patient hasn't seen a combination of Unasyn and Eraxis as the patient has been diagnosed having enterococcus UTI and systemic candidiasis and her most recent blood cultures from 03/24/2020 was again positive for yeast and the repeat cultures from 03/27/2020 is still pending for now. I'm a bit concerned about her mental status and MRI of the brain was ordered. Noted an echocardiogram that was done on 03/23/2020 VT regular transthoracic echocardiogram showed no evidence of any vegetation. The white cell count at 9.5 with hemoglobin of 10.4. Creatinine is at 1.7 which continues to improve with a BMI 52. Rest of the electrodes are all within normal limits. We recommended the patient was taking Seroquel at home in a dose of 25 mg at bedtime. Psychiatric consultation will be obtained and the patient will placed on cervical 100 mg by mouth twice a day addition to the other me dications. She is tolerating her diet. She wants to be washed out. Objective - Vital Signs Vital signs: Vital Signs Temp 98.1 F 03/28/20 00:00 Pulse 63 03/28/20 11:00 Resp 19 03/28/20 11:00 BP 164/109 03/28/20 11:00 Pulse Ox 94 L 03/28/20 11:00 Intake & Output 03/27/20 03/28/20 03/28/20 18:59 06:59 18:59 Intake Total 350 100 140 Output Total 400 1225 600 Balance -50 -1125 -460 Weight 75.7 kg Intake: IV 100 140 0.9 NS 40 Anidulafungin 100 mg In 100 100 Sodium Chloride 0.9% 100 ml @ 84 mls/hr IVPB DAILY JOSEPH Rx#:[id number] Intake, IV Titration 100 Amount Ampicillin-Sulbactam 3 gm 100 In Sodium Chloride 0.9% 100 ml @ 200 mls/hr IVPB Q24H JOSEPH Rx#:[id number] Oral 250 Output: Urine 400 1225 600 Other: Voiding Method Bedside Commode Bedside Commode Bedside Commode # Voids 2 1 # Bowel Movements 1 - Exam The patient appeared well nourished and normally developed. She is a bit lethargic this morning as the patient arrived from the operating room. She is currently on 6L of oxygen by nasal cannula. No cervical rest or distress and she is not using excessive muscle breathing. Vital signs as documented. Head exam is unremarkable. No scleral icterus or corneal arcus noted. Neck is without jugular venous distension, thyromegaly, or carotid bruits. Carotid upstrokes are brisk bilaterally. Lungs are diminished in lung bases bilaterally along with some few crackles. Cardiac exam reveals the PMI to be normally sized and situated. Rhythm is regular. First and second heart sounds normal. No murmurs, rubs or gallops. Abdominal exam reveals normal bowel sounds, no masses, no organomegaly and no aortic enlargement. Extremities are nonedematous and both femoral and pedal pulses are normal. Examination of the skin revealed no evidence of significant rashes, suspicious appearing nevi or other concerning lesions.Neurologically, the patient is awake and alert and the patient does not have any focal neurological deficit. Cranial nerves are essentially intact. Nevertheless, that times, the patient's remarks and conversation indicates that the patient is confused and she has obvious paranoid ideation. - Labs CBC & Chem 7: 03/28/20 06:08 03/28/20 06:08 Labs: Abnormal Lab Results - Last 24 Hours (Table) 03/27/20 03/27/20 03/28/20 Range/Units 16:44 20:43 06:08 RBC 3.41 L (3.80-5.40) m/uL Hgb 10.4 L (11.4-16.0) gm/dL Hct 33.8 L (34.0-46.0) % MCHC 30.7 L (31.0-37.0) g/dL Chloride (98-107) mmol/L Carbon Dioxide (22-30) mmol/L BUN (7-17) mg/dL Creatinine (0.52-1.04) mg/dL Glucose (74-99) mg/dL POC Glucose (mg/dL) 194 H 192 H (75-99) mg/dL Calcium (8.4-10.2) mg/dL 03/28/20 03/28/20 Range/Units 06:08 09:00 RBC (3.80-5.40) m/uL Hgb (11.4-16.0) gm/dL Hct (34.0-46.0) % MCHC (31.0-37.0) g/dL Chloride 93 L (98-107) mmol/L Carbon Dioxide 39 H (22-30) mmol/L BUN 52 H (7-17) mg/dL Creatinine 1.74 H (0.52-1.04) mg/dL Glucose 162 H (74-99) mg/dL POC Glucose (mg/dL) 156 H (75-99) mg/dL Calcium 8.2 L (8.4-10.2) mg/dL Microbiology - Last 24 Hours (Table) 03/24/20 18:25 Blood Culture - Final Blood 03/24/20 18:25 Blood Culture Gram Stain - Preliminary Blood 03/24/20 18:39 Blood Culture Gram Stain - Preliminary Blood Assessment and Plan Plan: 1 acute kidney injury, , the patient has obstructive uropathy with a renal stone obstructing the ureter with right kidney hydronephrosis, the patient is post double-J stent insertion on the right with subsequent improvement in the urine output and the renal function and the creatinine continues to improve is currently down to 1.74 and the patient is making adequate amount of urine output. 2 systemic candidiasis as the patient's blood cultures positive for Daylin albicans 2 sets of blood cultures, currently on Eraxis. Repeat cultures from 03/24/2020 came back positive for yeast. Echocardiac Jonh showed no evidence of any vegetation this was a regular transthoracic echocardiogram that was done on 03/23/2020. Repeat cultures from 03/27/2020 are still pending. She is afebrile for now. 3 acute hypoxic respiratory failure improving and I suspect that the patient had a component of acute lung injury secondary to her sepsis and fungemia. She was on nasal cannula which she was unable to tolerate and the patient was placed on a Ventimask at 35%. 4 Enterococcus faecalis in the urine currently on IV Unasyn 5 history of nephrolithiasis post lithotripsy 6 diabetes mellitus type 2 7 hypertension 8 history of carotid artery disease with previous history of CVA. The patient has undergone bilateral endarterectomies 9 previous history of pneumonia right-sided involving the right lung 10 episodic fever secondary to above my improved 11 altered mental status probably due to sepsis. Septic emboli to the brain cannot be completely ruled out. 12 the patient is delusional Plan put the patient on Seroquel 100 mg by mouth twice a day MRI of the brain Psychiatric consultation Follow-up the repeat blood cultures were obtained from 03/27/2020 Continue Unasyn and Eraxis No need for pressors Wean down the FiO2 as tolerated to maintain saturation above 90% , Echocardiogram was noted. No evidence of any regurgitation based on transthoracic echocardiogram , and may need a EVELIN if there is persistent fungemia Monitor renal function Which is improving and creatinine is down to 1.98 IV fluids to KVO With asked the patient to sit up on a chair if possible and continue using incentive spirometer. We'll continue to follow
--- NOTE | 2020-03-28 12:40 | PN ---
PROGRESS NOTE This is a 69-year-old patient with history of diabetes, TIA, carotid stenosis, who is admitted to hospital with renal failure and patient had a cystoscopy with insertion of the double-J stent into the right ureter. Blood cultures have grown yeast and is currently being treated for the same. PHYSICAL EXAM: He is comfortable at rest. Remains in sinus rhythm. Heart rate is 60 beats per minute, blood pressure is 148/64, respiratory rate is 18. Chest exam reveals good air entry bilaterally. Heart exam reveals first and second heart sounds. No gallop. Abdomen is soft. Exam of the extremities did not reveal any edema. Peripheral pulses are felt. LABS: Show a hemoglobin of 10.4, potassium is 3.6, creatinine is 1.7 with a BUN of 54. ASSESSMENT AND PLAN: 1. Paroxysmal atrial fibrillation. 2. Ureteric obstruction, status post cystoscopy with stent placement. PLAN: Will continue current medications. If the Infectious Disease doctor feels that the patient needs a EVELIN, will do it. MMODL / IJN: [id number] /
[2020-03-28 13:02] LABS: Glucose,Whole Blood 210 mg/dL (75-99)
--- NOTE | 2020-03-28 13:23 | MR ---
EXAMINATION TYPE: MR brain wo/w con DATE OF EXAM: 03/28/2020 COMPARISON: 03/22/2020 CT brain [facility]. HISTORY: Acute mental status change CONTRAST: Performed utilizing 7.5 mL intravenous Gadavist gadolinium contrast. TECHNIQUE: Multiplanar, multiecho imaging on a 3.0 Elle magnet is performed through the brain. Stud y is performed within 24 hours of arrival to the hospital. The craniovertebral junction is normal. The pituitary is normal. Diffusion-weighted imaging is performed. No abnormal hyperintensity is present to suggest an acute i ntracranial infarct or acute ischemic change. There are periventricular white matter hyperintensities compatible with chronic white matter ischemic change. A few scattered punctate deep white matter changes are also evident bilaterally. Ventricles and sulci are slightly prominent for the patient age. A knee jugulodigastric region on the left there is an ill-defined heterogenous signal area which is s omewhat hyperintense on diffusion and heterogenous T1 postcontrast imaging. Definite enhancement is n ot identified. This appears hyperintense on T2-weighted sequences. Additional workup is recommended w ith contrast CT of the neck. IMPRESSIONS: 1. Atrophy with chronic appearing periventricular white matter ischemic type changes. No acute intrac ranial process evident. 2. 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 Additional workup with c ontrast CT neck is recommended
--- NOTE | 2020-03-28 14:05 | CDI ---
Documentation Clarification Form Date: 03/28/2020 1402 CDS: Pretty Wilhelm RN, CCDS Admit Date: 03/23/2020 0147 Patient Name: Mansi Carolina ATTENTION: The Clinical Documentation Specialists (CDI) and [facility] Coding Staff appreciate your assistance in clarifying documentation. Please respond to the clarification below the line at the bottom and electronically sign. The CDI & [facility] Coding staff will review the response and follow-up if needed. Please note: Queries are made part of the Legal Health Record. If you have any questions, please contact the author of this message via ITS. Dr. Reis Altered Mental Status was documented in the 03/28 Attending progress note and requires further specificity. History/Risk Factors: Paroxysmal A-fib, CVA/TIA, anemia, ROCIO, hypomagnesia, fall Clinical Indicators: 03/28 Attending Progress Note: "altered mental status probably due to sepsis. Septic emboli to the brain cannot be completely ruled out. The patient is delusional." 03/23-03/28 Labs: WBC 12.7/9.2, Hgb 9.9/8.7/9.8/10.4, NA+ 133/131/138/143, BUN 58/59/64/52, Creatinine 3.6/3.42/2.52/1.98/1.74, procalcitonin 8.89. + U/A on admission Additional Co-morbid conditions: Enterococcus faecalis, ROCIO with obstructive uropathy, Fungemia with candidiasis. acute hypoxic respiratory failure, sepsis 03/28 MRI Brain: " Atrophy with chronic appearing periventricular white matter ischemic type changes. No acute intracranial process evident. 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 Additional workup with contrast CT neck is recommended." Treatment: Unasyn 3gm IVPB Q 12 hrs Anidulafungin 100 mg IVPB QD 03/23-03/24 Ceftriaxone 1 gm IVPB Q 24 hrs 03/28 Haldol 1 mg IM OT Seroquel 100 mg PO BID 03/23 IV Magnesium sulfate 1 gm x 2 bags IVPB 03/25 KCL IVPB 10 meqs q 1 hr x 4 doses 03/27 & 03/28 20 Meq KCL PO X 2 doses In your professional opinion, please clarify the etiology of the Altered Mental Status, if known. Metabolic Encephalopathy (specify Underlying Medical Illness) Delirium (specify cause): Other condition (please specify) Unable to determine Please continue to document in your progress notes and discharge summary in order to capture severity of illness and risk of mortality. Include clinical findings that support your diagnosis. Metabolic Encephalopathy MTDD
--- NOTE | 2020-03-28 14:30 | P.CN ---
Psychiatric Consult - . Consult date: 03/28/20 Consult:: 03/28/20 11:47 IDENTIFYING DATA: This patient is a 69-year-old female HISTORY OF PRESENT ILLNESS: The patient presented to the hospital as a transfer from [facility] as patient was noted to have elevated troponins and shortness of breath/respiratory failure. Patient was admitted on 03/23/2020. Patient was apparently having episodes of falling at home generalized weakness and shortness of breath. Patient had a lithotripsy completed one week prior to her admission and declined since then. Patient was admitted to the ICU for further care and was currently being treated for a chaotic, systemic candidiasis, respiratory failure and pneumonia. Psychiatry is consulted for "suspected psychosis". Patient was given Haldol 1 mg IM last night. Nursing care patient states that patient was hallucinating yesterday and was irritable and also combative last night and needed the when necessary Haldol. Patient was seen at the bedside and appeared to be lethargic during the interview. Patient had a poor attention span and was superficial with rfp writer. She answers questions concretely. She spoke briefly about coming in to the hospital because of a "kidney procedure that blew up" and also claims that the medication she was receiving was a "toxic chemical to my kidneys". She claims that she is doing better now and was asking about discharge. She denied any depression or anxiety and states that her mood is "fine". She spoke briefly about her psychiatric past and states that she is to have a psychiatrist one year ago "but he left" and states that she has been taking Seroquel at nighttime. She claims that she has been having poor sleep and hospital. She did mention that she had visual hallucinations of light flashing yesterday however denied any auditory hallucinations. When asked about her treatment in the hospital and staff members she states that "I only quits going on here in the way they're treating me like a prisoner". At this time patient denies any suicidal or homical ideations, intent or plan. Patient does exhibit some paranoia. Patients admits to using no recreational drugs or cigarettes. PAST PSYCHIATRIC HISTORY: Patient has an unknown psychiatric history. Patient was previously on Seroquel 25 mg daily at bedtime at home. He states that she has been hospitalized once in "[place]" years ago. She claims that she used to follow up with a psychiatrist however states that he left town one year ago. She states that she has had a 1 suicide attempt years ago by overdosing. PAST MEDICAL HISTORY: A. fib, CVA/TIA, diabetes mellitus. ALLERGIES: as per EMR. CHEMICAL DEPENDENCY HISTORY: as per HPI. FAMILY PSYCHIATRIC/SUBSTANCE USE HISTORY: She states that her dad had some form of mental illness. SOCIAL HISTORY: Patient was born and raised in [facility] and claims of worked several different jobs in the past. She states that she completed some college. She claims that she currently lives with her in a house has 2 kids and collects Social Security.. MENTAL STATUS EXAM: General Appearance: Patient appears to be stated age is lethargic, poor attention span and dismissive at times. Mildly irritability.. Patient appears to have fair hygiene and grooming wearing hospital gown with poor eye contact. Behavior: Patient is calmly lying in bed without any agitated behavior. Lethargic and mildly irritable. Speech: Patient's speech is fluent and nonpressured. [place]. Mood/Affect: Patient reports their mood is "ok", affect is congruent and constricted Suicidality/Homicidality: Patient denies having any suicidal or homicidal ideation intent or plan. Perceptions: Patient denies any visual hallucinations and denies any auditory hallucinations. She states that she was seeing flashing lights yesterday. Though content/process: [place], poverty of content. Dismissive at times. Paranoia. Memory and concentration: AOX2, she believes that she is in [facility] rehab, poor attention span, knows who the current president is, Can spell "WORLD" backwards. Poor judgment. Judgment and insight: poor IMPRESSIONS: Delirium, likely multifactorial including prolonged hospitalization, toxic metabolic and medications. PLAN: -At this time patient DOES NOT meet criteria for inpatient psychiatric admission. -Delirium precautions recommended with patient including - avoiding use of narcotics and DEHAIRING MACHINE TENDER sedatives, limit anticholinergic medications when possible, frequent re-orientation, minimize use of restraints, open window shades during the day and close them at night -Would recommend the following medication changes/additions: We'll decrease dose of Seroquel to 50 mg twice a day for psychosis/agitation. -Will continue to follow along -Continue treatment of underlying medical comorbidities. -Please contact with any questions. 03/28/20 14:20
--- NOTE | 2020-03-28 15:25 | PN ---
PROGRESS NOTE DATE OF SERVICE: 03/28/2020 REASON FOR FOLLOWUP: Candidemia; source likely urinary. INTERVAL HISTORY: The patient is currently afebrile. She was noticed to have some mental status changes, for which the patient did have an MRI of the brain done. No acute intracranial abnormality; however, it did show some abnormality in the left jugulodigastric region. The patient denies having any headache or sinus infection. No chest pain or cough. No abdominal pain or diarrhea. PHYSICAL EXAMINATION: Blood pressure 131/85 with a pulse of 70, temperature 97.6. She is 94% on 5 L nasal cannula. General description is an elderly female lying in bed in no distress. RESPIRATORY SYSTEM: Unlabored breathing with decreased breath sounds at the base. No wheeze. HEART: S1, S2. Regular rate and rhythm. ABDOMEN: Soft. No tenderness. LABS: Hemoglobin 10.4, white count 9.5, BUN of 52, creatinine 1.74. Blood culture repeat 03/27 so far negative. DIAGNOSTIC IMPRESSION AND PLAN: Patient with candidemia. Source is likely urinary in this patient who had a complicated UTI, status post cystoscopy and ureteral stent placement. The patient is covered with Eraxis; to continue. We will monitor her clinical course closely. If persistent bacteremia, may need a EVELIN to rule out endocarditis. Discussed with the electrical discharge machine operator. Continue with supportive care. MMODL / IJN: [id number] /
[2020-03-28 17:00] LABS: Glucose,Whole Blood 205 mg/dL (75-99)
--- NOTE | 2020-03-28 17:07 | PN ---
PROGRESS NOTE Patient is seen for followup for acute kidney injury. Renal function continues to improve. Patient is currently not on any diuretics or IV fluids. She has good urine output; 1.6 L over 24 hours. PHYSICAL EXAMINATION: On examination today, blood pressure was 164/109, heart rate 63 per minute, patient is afebrile. Examination of the heart S1, S2. Examination of the lungs, decreased breath sounds at bases. Abdomen is soft, nontender. Examination of lower extremities shows no evidence of edema. [employer] exam is grossly intact. LABS: Show hemoglobin 10.4, sodium 143, potassium 3.6, BUN 52, serum creatinine 1.74. ASSESSMENT: 1. Acute kidney injury ATN with some degree of obstructive uropathy and secondary to NSAIDs, currently improving. 2. Right hydronephrosis status post cystoscopy and ureteral stent placement on 03/25/2020. 3. Chronic kidney disease stage 3 secondary to diabetic kidney disease, baseline creatinine 1-1.2. 4. Metabolic acidosis associated with renal failure as well as well as GI fluid losses, now improved. 5. Urinary tract infection. Urine culture grew enterococcus faecalis, maintained on Unasyn. 6. Fungemia, currently on antifungal treatment in the form of anidulafungin. PLAN: Continue to encourage increased oral intake. Continue to avoid nephrotoxic agents. MMODL / IJN: [id number] /
--- NOTE | 2020-03-28 19:56 | P.PN ---
Subjective Progress Note Date: 03/28/20 Principal diagnosis: weakness Patient is a 69-year-old female with atrial fibrillation, kidney stones, and prior CVA who presented to the hospital with complaints of gene ralized weakness. She has since been diagnosed with urinary tract infection, candidemia, and nephrolithiasis. Patient seen and examined at bedside. She complains of still feeling tired. She thinks we are against her and she has not really helped here. She denies any nausea, vomiting, shortness of breath, or chest pain. Per nursing patient was very agitated today and more confused. General: Ill-appearing, no distress, appears at stated age Derm: warm, dry Head: atraumatic, normocephalic, symmetric Eyes: EOMI, no lid lag, anicteric sclera Mouth: no lip lesion, mucus membranes moist Cardiovascular: S1S2 reg, no murmur, positive posterior tibial pulse bilateral, Lungs: CTA bilateral, no rhonchi, no rales , no accessory muscle use Abdominal: soft, nontender to palpation, no guarding, no appreciable organomegaly Ext: no gross muscle atrophy, no edema, no contractures Neuro: CN II-XI grossly intact, no focal neuro deficits Psych: Alert, oriented, flat affect Candidemia - ID recs - Eraxis - Persistent positive on BC if continued may need EVELIN Enterococcus urinary tract infection, complicated status post placement of double-J ureteral stent -Continue with -Urology recommendations appreciated, will need here cysto and lithotripsy but will be deferred at least 3 weeks secondary to candidemia -Continue with Unasyn Acute hypoxic respiratory failure secondary likely secondary to acute lung injury -Pulmonary recommendations -Wean O2 as able -Supportive care Toxic metabolic encephalopathy -Likely secondary to sepsis -Check MRI brain which demonstrated a mass in the left neck will follow with CT (will check with nephro in AM to see if ok for contrast with recent ROCIO) -Psychiatry recommendations: Seroquel 50 mg by mouth twice a day Acute kidney injury secondary to ATN with some degree of obstructive uropathy, right-sided hydronephrosis, metabolic acidosis -Nephrology recommendations appreciated -Creatinine improving -Avoid additional nephrotoxic agents -Follow renal profile -Status post urethral stent placement Chronic kidney disease stage III secondary to diabetes -Outpatient follow-up Diabetes mellitus type 2 -Long-acting, fixed dose, and sliding scale insulin -Follow blood sugars -Check hemoglobin A1c Hypertension, controlled -Atenolol -Follow blood pressures Anemia, present at baseline -Follow CBC, currently stable, further workup as outpatient Hypokalemia, resolved Chronic conditions: Atrial fibrillation History of a vascular accident Discussed with at bedside and updated on plan of care and patient's likelihood of needing senior care facility. DVT prophylaxis: Heparin Discussed with: Patient, nursing, Anticipated discharge: 4-[address]: SNF A total of 65 minutes was spent on the care of this complex patient more than 50% of the time was spent in counseling and care coordination. Objective - Vital Signs Vital signs: Vital Signs Temp 97.6 F 03/28/20 12:00 Pulse 70 03/28/20 18:00 Resp 22 03/28/20 18:00 BP 103/77 03/28/20 18:00 Pulse Ox 91 L 03/28/20 18:00 Intake & Output 03/28/20 03/28/20 03/29/20 06:59 18:59 06:59 Intake Total 100 190 Output Total 1225 1300 Balance -1125 -1110 Weight 75.7 kg Intake: IV 190 0.9 NS 90 Anidulafungin 100 mg In 100 Sodium Chloride 0.9% 100 ml @ 84 mls/hr IVPB DAILY JOSEPH Rx#:[id number] Intake, IV Titration 100 Amount Ampicillin-Sulbactam 3 gm 100 In Sodium Chloride 0.9% 100 ml @ 200 mls/hr IVPB Q24H JOSEPH Rx#:[id number] Output: Urine 1225 1300 Other: Voiding Method Bedside Commode Bedside Commode # Voids 1 # Bowel Movements 1 - Labs CBC & Chem 7: 03/28/20 06:08 03/28/20 06:08 Labs: Abnormal Lab Results - Last 24 Hours (Table) 03/27/20 03/28/20 03/28/20 Range/Units 20:43 06:08 06:08 RBC 3.41 L (3.80-5.40) m/uL Hgb 10.4 L (11.4-16.0) gm/dL Hct 33.8 L (34.0-46.0) % MCHC 30.7 L (31.0-37.0) g/dL Chloride 93 L (98-107) mmol/L Carbon Dioxide 39 H (22-30) mmol/L BUN 52 H (7-17) mg/dL Creatinine 1.74 H (0.52-1.04) mg/dL Glucose 162 H (74-99) mg/dL POC Glucose (mg/dL) 192 H (75-99) mg/dL Calcium 8.2 L (8.4-10.2) mg/dL 03/28/20 03/28/20 03/28/20 Range/Units 09:00 13:00 16:39 RBC (3.80-5.40) m/uL Hgb (11.4-16.0) gm/dL Hct (34.0-46.0) % MCHC (31.0-37.0) g/dL Chloride (98-107) mmol/L Carbon Dioxide (22-30) mmol/L BUN (7-17) mg/dL Creatinine (0.52-1.04) mg/dL Glucose (74-99) mg/dL POC Glucose (mg/dL) 156 H 210 H 205 H (75-99) mg/dL Calcium (8.4-10.2) mg/dL Microbiology - Last 24 Hours (Table) 03/27/20 10:07 Blood Culture - Preliminary Blood No Growth after 24 hours 03/27/20 10:07 Blood Culture - Preliminary Blood No Growth after 24 hours
[2020-03-28 20:41] LABS: Glucose,Whole Blood 202 mg/dL (75-99)
[2020-03-28] MEDS: QUEtiapine 50 MG TAB PO SCH (20:53)
[2020-03-28] MEDS: ATORVASTATIN 40 MG TAB PO SCH (20:53)
[2020-03-28] MEDS ORDERED: INSULIN DETEMIR (LEVEMIR) 100 UNIT/ML SYR SQ SCH (21:00)
[2020-03-29] MEDS: AMPICILLIN-SULBACTAM 3 GM in SODIUM CHLORIDE 0.9% 100 ML IVPB SCH ×3 (00:20→23:48)
[2020-03-29] MEDS: HEPARIN SODIUM,PORCINE 5,000 UNIT/ML 1 ML VIAL SQ SCH ×4 (00:20→23:48)
[2020-03-29 02:07] LABS: Glucose,Whole Blood 146 mg/dL (75-99)
[2020-03-29 06:46] LABS: Glucose,Whole Blood 161 mg/dL (75-99)
[2020-03-29 06:55] LABS: Basophils % (A) 0 %; Eosinophils # (A) 0.2 k/uL (0-0.7); Eosinophils % (A) 2 %; HCT 34.9 % (34.0-46.0); HGB 10.8 gm/dL (11.4-16.0); Hypochromasia Slight; Lymphocytes # (A) 1.1 k/uL (1.0-4.8); Lymphocytes % (A) 11 %; MCH 30.5 pg (25.0-35.0); MCHC 30.9 g/dL (31.0-37.0); MCV 98.7 fL (80.0-100.0); Monocytes # (A) 0.4 k/uL (0-1.0); Monocytes % (A) 4 %; Neutrophils # (A) 8.2 k/uL (1.3-7.7); Neutrophils % (A) 81 %; Platelet Count 397 k/uL (150-450); RBC 3.54 m/uL (3.80-5.40); RDW 14.3 % (11.5-15.5)
[2020-03-29] MEDS: INSULIN ASPART (NovoLOG) 100 UNIT/ML VIAL SQ SCH ×7 (06:59→21:08)
[2020-03-29 07:05] LABS: Calcium 7.8 mg/dL (8.4-10.2); Magnesium 1.1 mg/dL (1.6-2.3); Phosphorus 4.5 mg/dL (2.5-4.5); Potassium 3.7 mmol/L (3.5-5.1)
--- NOTE | 2020-03-29 07:41 | XR ---
EXAMINATION TYPE: XR chest 1V portable DATE OF EXAM: 03/29/2020 COMPARISON: 03/27/2020 INDICATION: Short of breath with activity TECHNIQUE: Single frontal view of the chest is obtained. FINDINGS: The heart size is normal. The pulmonary vasculature is normal. There is an infiltrate along the left diaphragm. Correlate for atelectasis or pneumonia. Prior bibasi lar infiltrates appear improved. IMPRESSION: 1. No residual left lower lobe infiltrate. Bibasilar infiltrates from prior and improved.
[2020-03-29] MEDS: MAGNESIUM SULFATE-D5W PMX 1 GM in DEXTROSE/WATER 1 100ML.BAG IVPB SCH ×4 (08:11→11:52)
[2020-03-29] MEDS: ANIDULAFUNGIN 100 MG in SODIUM CHLORIDE 0.9% 100 ML IVPB SCH (10:02)
[2020-03-29] MEDS: ASPIRIN 81 MG PO SCH (10:03)
[2020-03-29] MEDS: QUEtiapine 50 MG TAB PO SCH ×2 (10:03→21:08)
[2020-03-29] MEDS: atenoloL 25 MG TAB PO SCH ×2 (10:03→21:08)
[2020-03-29] MEDS: CLOPIDOGREL 75 MG TAB PO SCH (10:03)
--- NOTE | 2020-03-29 11:52 | PN ---
PROGRESS NOTE Patient is seen for followup for acute kidney injury. Her renal function is slowly improving. Creatinine remains at about 1.6. PHYSICAL EXAMINATION: Today blood pressure was 107/59, heart rate 67 per minute, patient is afebrile. Examination of the heart S1, S2. Examination of the lungs, bilateral breath sounds are heard. Abdomen is soft, nontender. Examination of the lower extremities shows no evidence of edema. [employer] DRUM exam grossly intact. Patient moving all 4 extremities. LABS: Show sodium 145, potassium 3.7, chloride 96, CO2 is 38, BUN 42, creatinine 1.6, hemoglobin 10.8 g/dL. ASSESSMENT: 1. Acute kidney injury ATN currently nonoliguric and improving. 2. Candidemia, maintained on anti fungal treatment. 3. Enterococcus urinary tract infection. 4. Obstructive uropathy with right hydronephrosis, status post ureteral stent placement. 5. Chronic kidney disease stage 3 secondary to diabetic kidney disease, baseline creatinine 1 to 1.2. 6. Altered mentation, now improved. PLAN: Continue to encourage increased oral intake. Continue with antifungal and antibiotic treatment. Recommend to hold off on IV contrast as renal function is still recovering unless it is an emergency situation. MMODL / IJN: [id number] /
[2020-03-29 11:57] LABS: Glucose,Whole Blood 354 mg/dL (75-99)
[2020-03-29 11:57] LABS: Glucose,Whole Blood 294 mg/dL (75-99)
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
[2020-03-29 12:52] VITALS: BMI 26.8
--- NOTE | 2020-03-29 14:48 | P.PN ---
Progress Note - Text Progress Note Date: 03/29/20 Interval History: Patient was seen today for psychiatric follow-up regarding patient's delirium. Patient was decreased down to Seroquel 50 mg twice a day yesterday. Patients nurse offered no complaints about patient states that her behavior has improved and is no longer agitated. There is also claims a patient has been taking her medications and slept better last night. Patient was seen at the bedside with her by her side. Patient appeared to be lethargic and attempting to cooperate with automobile and property underwriter. She continues to be concrete and offered no complaints. She denied any depression or anxiety. She states that she feels "off" and when asked to speak more about that she claims that she feels mainly tired. She states that she only take Seroquel once at nighttime at home and has been taking it twice in the hospital. She claims that her mood is then improving. She claims that she's been eating well and states that she was able to sleep last night. At this time patient denies any suicidal or homical ideations, intent or plan. Patient denies any auditory, visual hallucinations and denies any paranoia or delusions. Mental Status Exam: General Appearance: Patient appears to be stated age is lethargic, improving attention and more cooperative today. Patient appears to have fair hygiene and grooming wearing hospital gown with poor eye contact. Behavior: Patient is calmly lying in bed without any agitated behavior. Lethargy is improving and more cooperative today. Speech: Patient's speech is fluent and nonpressured. Squires. Mood/Affect: Patient reports their mood is "fine", affect is congruent and constricted Suicidality/Homicidality: Patient denies having any suicidal or homicidal ideation intent or plan. Perceptions: Patient denies any visual hallucinations and denies any auditory hallucinations. Though content/process: Squires, poverty of content. Dismissive at times. Paranoia. Memory and concentration: AOX2, she claims that she does not know where she is, improving attention span, improving judgment. Judgment and insight: Limited, improving midly Assessment Delirium, likely multifactorial including prolonged hospitalization, toxic metabolic and medications. Plan: -At this time patient DOES NOT meet criteria for inpatient psychiatric adm ission. -Delirium precautions recommended with patient including - avoiding use of narcotics and TRANSITIONS RN CARE COORDINATOR sedatives, limit anticholinergic medications when possible, frequent re-orientation, minimize use of restraints, open window shades during the day and close them at night -Would recommend the following medication changes/additions: We'll decrease dose of Seroquel 50 mg qhs for psychosis/agitation. -Psychiatry will sign off at this time. -Continue treatment of underlying medical comorbidities. -Please contact with any questions.
--- NOTE | 2020-03-29 14:50 | PN ---
PROGRESS NOTE Mansi is a 69-year-old patient with history of diabetes, TIA, carotid stenosis, who was admitted to hospital with renal failure this morning and yesterday patient was confused. This morning she is awake, alert, and her confusion had resolved. PHYSICAL EXAM: She is in sinus rhythm. Heart rate is 66. Blood pressure is 107/59, respiratory rate is 18. There is no jugular venous distention. Chest exam reveals good air entry bilaterally. Heart exam reveals first and second heart sounds. No gallop. Exam of extremities did not reveal any edema. Peripheral pulses are felt. LABS: Show a hemoglobin of 10.8, platelet count is 397. Potassium is 3.7 creatinine is 1.6. ASSESSMENT: 1. Paroxysmal atrial fibrillation. 2. Septicemia with blood cultures positive for Daylin. PLAN: Patient is on aspirin, Tenormin, Lipitor, Plavix, and antibiotics. She is not on anticoagulants because of concerns with bleed. MMODL / IJN: [id number] /
[2020-03-29 17:08] LABS: Glucose,Whole Blood 225 mg/dL (75-99)
--- NOTE | 2020-03-29 17:20 | PN ---
PROGRESS NOTE DATE OF SERVICE: 03/29/2020 REASON FOR FOLLOWUP: Candidemia. INTERVAL HISTORY: The patient is currently afebrile. The patient is feeling better. Breathing comfortably. Denies having any chest pain. She did have some cough. No nausea, no vomiting. No abdominal pain, no diarrhea. PHYSICAL EXAMINATION: Blood pressure 135/60 with a pulse of 82, temperature 98. She is 92% on 6 L nasal cannula. General description is an elderly female, lying in bed in no distress. RESPIRATORY SYSTEM: Unlabored breathing, decreased breath sounds at the bases. No wheeze. HEART: S1, S2. Regular rate and rhythm. ABDOMEN: Soft, no tenderness. LABS: Hemoglobin is 12.1, white count 10.0, BUN of 42, creatinine 1.63. Blood culture 03/27 and 03/28 have been negative so far. DIAGNOSTIC IMPRESSION AND PLAN: Patient with candidemia, source likely complicated UTI in this patient status post cystoscopy and ureteral stent placement. CT of abdomen and pelvis did not show any abnormality of the liver or spleen. Will switch for better coverage of candidiasis she is currently covered with Eraxis, because of her other medication, currently continue the use of the Diflucan. She will get a midline and continue with either or caspofungin in outpatient setting for 2-4 weeks. Follow clinical response and continue supportive care. MMODL / IJN: [id number] /
--- NOTE | 2020-03-29 17:59 | P.PN ---
Subjective Progress Note Date: 03/29/20 Principal diagnosis: weakness Patient is a 69-year-old female with atrial fibrillation, kidney stones, and prior CVA who presented initially to [facility] with complaints of generalized weakness. She was subsequently transferred here. On arrival to the emergency department at [facility] she was satting 97% on 5 L nasal cannula. Initial laboratory analysis was remarkable for a d-dimer of 4.5, hemoglobin 10.1, carbon dioxide 16, BUN 50, creatinine 3.39, magnesium 1.4, troponin 0.037, BNP 6460. Chest x-ray showed pulmonary infiltrates consistent with primary fibrosis. 2 admitted for possible pulmonary embolism versus non- STEMI. She was started on a heparin drip, aspirin, and statin. CT angios was not performed secondary to acute kidney injury. Venous Doppler was negative for DVT. VQ scan showed low probability for pulmonary emboli. Echocardiogram showed an ejection fraction of 50-55% with grade 1 diastolic dysfunction. Nephrology was consulted and recommended continuing normal saline, adding sodium bicarb, checking urinalysis and renal ultrasound. Renal ultrasound demonstrated mild right-sided hydronephrosis with small nephrolithiasis. Urology was consulted and reviewed her computed tomography scan from [facility] demonstrating a 3.5 x 4.5 calculus fragment in the right proximal ureter with mild to moderate hydronephrosis at that point in time and did not recommend placement of a double-J stent. She seen by cardiology for elevated troponins which normalized by the second set of troponins. She was seen by pulmonary who recommended weaning down her FiO2 as tolerated, continue gentle hydration, and d iscontinuation of IV heparin as there is no indication for pulmonary embolism and troponin normalized. She underwent a CT abdomen and pelvis here which was nonobstructing calculus at the right ureteropelvic junction with right-sided hydronephrosis. Overnight on 03/23 the patient had worsening tachypnea and hypoxia, critical care was contacted and the patient was moved to the ICU. Her blood cultures came back with Daylin. She was started on Eraxis. Infectious disease was consulted who recommended placement of double-J stent for drainage. On 03/25 she underwent cystoscopy with placement of right double-J catheter she tolerated the procedure well. Urine cultures demonstrated Group D enterococcus and Unasyn was continued. Chest x-ray did show some pulmonary edema and she was started on Lasix. On the morning of 03/28 she had increasing confusion and disorientation. She subsequently underwent MRI of the brain which showed a left jugulodigastric mass 2.[address] a [address] of the neck with contrast. However patient's renal function had just started to improve and this CT was d elayed until approved by nephrology. She was also seen by psychiatry, she had been off of her Seroquel since admission and this was restarted at 50 mg twice daily. Patient seen and examined at bedside. Still feeling a bit foggy and confused. No chest pain, no shortness of breath, no nausea, no vomiting. General: Ill-appearing, no distress, appears at stated age Derm: warm, dry Head: atraumatic, normocephalic, symmetric Eyes: EOMI, no lid lag, anicteric sclera Mouth: no lip lesion, mucus membranes moist Cardiovascular: S1S2 reg, no murmur, positive posterior tibial pulse bilateral, Lungs: CTA bilateral, no rhonchi, no rales , no accessory muscle use Abdominal: soft, nontender to palpation, no guarding, no appreciable organomegaly Ext: no gross muscle atrophy, no edema, no contractures Neuro: CN II-XI grossly intact, no focal neuro deficits Psych: Alert, oriented, flat affect Candidemia - ID recs - Eraxis - Persistent positive on BC if continued may need EVELIN Left neck mass - May need CT of neck with contrast to rule out infectious etiology, however states not new finding and related to prior surgery - D/W nephro attempt to await if not urgent Enterococcus urinary tract infection, complicated status post placement of double-J ureteral stent -Continue with -Urology recommendations appreciated, will need here cysto and lithotripsy but will be deferred at least 3 weeks secondary to candidemia -Continue with Unasyn D # 6 Hypomagnesemia - replace and recheck in AM Acute hypoxic respiratory failure secondary likely secondary to acute lung injury -Pulmonary recommendations -Wean O2 as able -Supportive care Toxic metabolic encephalopathy -Likely secondary to sepsis -Check MRI brain which demonstrated a mass in the left neck will follow with CT (will check with nephro in AM to see if ok for contrast with recent ROCIO) -Psychiatry recommendations: Seroquel 50 mg by mouth twice a day Acute kidney injury secondary to ATN with some degree of obstructive uropathy, right-sided hydronephrosis, metabolic acidosis -Nephrology recommendations appreciated -Creatinine improving -Avoid additional nephrotoxic agents -Follow renal profile -Status post urethral stent placement Chronic kidney disease stage III secondary to diabetes -Outpatient follow-up Diabetes mellitus type 2 -Long-acting, fixed dose, and sliding scale insulin -Follow blood sugars -Check hemoglobin A1c Hypertension, controlled -Atenolol -Follow blood pressures Anemia, present at baseline -Follow CBC, currently stable, further workup as outpatient Hypokalemia, resolved Chronic conditions: Atrial fibrillation History of a vascular accident Discussed with at bedside and updated on plan of care and patient's likelihood of needing senior care facility. DVT prophylaxis: Heparin Discussed with: Patient, nursing Anticipated discharge: 3-[address]: [facility] A total of 35 minutes was spent on the care of this complex patient more than 50% of the time was spent in counseling and care coordination. Objective - Vital Signs Vital signs: Vital Signs Temp 98.7 F 03/29/20 04:00 Pulse 77 03/29/20 07:00 Resp 22 03/29/20 07:00 BP 116/53 03/29/20 07:00 Pulse Ox 92 L 03/29/20 07:00 Intake & Output 03/28/20 03/29/20 03/29/20 18:59 06:59 18:59 Intake Total 190 600 400 Output Total 1300 1035 0 Balance -1110 -435 400 Weight 75.3 kg Intake: IV 190 100 0.9 NS 90 Ampicillin-Sulbactam 3 gm 100 In Sodium Chloride 0.9% 100 ml @ 200 mls/hr IVPB Q12H JOSEPH Rx#:[id number] Anidulafungin 100 mg In 100 Sodium Chloride 0.9% 100 ml @ 84 mls/hr IVPB DAILY JOSEPH Rx#:[id number] Oral 500 400 Output: Urine 1300 1035 0 Other: Voiding Method Bedside Commode Bedside Commode # Voids 1 0 # Bowel Movements 1 1 - Labs CBC & Chem 7: 03/29/20 06:28 03/29/20 06:28 Labs: Abnormal Lab Results - Last 24 Hours (Table) 03/28/20 03/28/20 03/28/20 Range/Units 09:00 13:00 16:39 RBC (3.80-5.40) m/uL Hgb (11.4-16.0) gm/dL MCHC (31.0-37.0) g/dL Neutrophils # (1.3-7.7) k/uL Chloride (98-107) mmol/L Carbon Dioxide (22-30) mmol/L BUN (7-17) mg/dL Creatinine (0.52-1.04) mg/dL Glucose (74-99) mg/dL POC Glucose (mg/dL) 156 H 210 H 205 H (75-99) mg/dL Calcium (8.4-10.2) mg/dL Magnesium (1.6-2.3) mg/dL 03/28/20 03/29/20 03/29/20 Range/Units 20:40 02:05 06:28 RBC 3.54 L (3.80-5.40) m/uL Hgb 10.8 L (11.4-16.0) gm/dL MCHC 30.9 L (31.0-37.0) g/dL Neutrophils # 8.2 H (1.3-7.7) k/uL Chloride (98-107) mmol/L Carbon Dioxide (22-30) mmol/L BUN (7-17) mg/dL Creatinine (0.52-1.04) mg/dL Glucose (74-99) mg/dL POC Glucose (mg/dL) 202 H 146 H (75-99) mg/dL Calcium (8.4-10.2) mg/dL Magnesium (1.6-2.3) mg/dL 03/29/20 03/29/20 Range/Units 06:28 06:44 RBC (3.80-5.40) m/uL Hgb (11.4-16.0) gm/dL MCHC (31.0-37.0) g/dL Neutrophils # (1.3-7.7) k/uL Chloride 96 L (98-107) mmol/L Carbon Dioxide 38 H (22-30) mmol/L BUN 42 H (7-17) mg/dL Creatinine 1.63 H (0.52-1.04) mg/dL Glucose 160 H (74-99) mg/dL POC Glucose (mg/dL) 161 H (75-99) mg/dL Calcium 7.8 L (8.4-10.2) mg/dL Magnesium 1.1 L (1.6-2.3) mg/dL Microbiology - Last 24 Hours (Table) 03/24/20 18:25 Blood Culture Gram Stain - Final Blood Blood Culture - Final Daylin albicans 03/24/20 18:39 Blood Culture Gram Stain - Final Blood Blood Culture - Final Daylin albicans 03/27/20 10:07 Blood Culture - Preliminary Blood No Growth after 24 hours 03/27/20 10:07 Blood Culture - Preliminary Blood No Growth after 24 hours
[2020-03-29 20:28] LABS: Glucose,Whole Blood 211 mg/dL (75-99)
[2020-03-29] MEDS: ATORVASTATIN 40 MG TAB PO SCH (21:08)
[2020-03-29] MEDS: INSULIN DETEMIR (LEVEMIR) 100 UNIT/ML SYR SQ SCH (21:09)
[2020-03-29] MEDS: MELATONIN 5 MG TABLET PO PRN (21:53)
[2020-03-30 01:59] LABS: Glucose,Whole Blood 186 mg/dL (75-99)
[2020-03-30 06:54] LABS: Glucose,Whole Blood 166 mg/dL (75-99)
[2020-03-30] MEDS: INSULIN ASPART (NovoLOG) 100 UNIT/ML VIAL SQ SCH ×7 (07:10→21:52)
--- NOTE | 2020-03-30 07:25 | XR ---
EXAMINATION TYPE: XR chest 1V portable DATE OF EXAM: 03/30/2020 HISTORY: Shortness of breath. COMPARISON: 03/29/2020 TECHNIQUE: Single view of the chest is submitted. FINDINGS: Demonstrated are scattered senescent parenchymal change. Patchy perihilar and basilar infiltrates are noted. Follow-up advised. The heart is stable. Hilar and mediastinal structures are within normal limits. Degenerative changes are seen of the dorsal spine. IMPRESSION: 1. Patchy perihilar and basilar infiltrates are noted. Follow-up advised.
[2020-03-30 07:26] LABS: HCT 31.3 % (34.0-46.0); HGB 9.6 gm/dL (11.4-16.0); Hypochromasia Moderate; MCHC 30.6 g/dL (31.0-37.0); MCV 101.3 fL (80.0-100.0); Macrocytosis Slight; Mean Platelet Volume 8.2; Platelet Count 362 k/uL (150-450); RBC 3.09 m/uL (3.80-5.40); RDW 14.4 % (11.5-15.5); WBC 10.1 k/uL (3.8-10.6)
[2020-03-30 07:40] LABS: Albumin 2.8 g/dL (3.5-5.0); Calcium 7.5 mg/dL (8.4-10.2); Magnesium 1.9 mg/dL (1.6-2.3); Potassium 3.5 mmol/L (3.5-5.1); Total Bilirubin 0.6 mg/dL (0.2-1.3); Total Protein 6.1 g/dL (6.3-8.2)
[2020-03-30] MEDS: ANIDULAFUNGIN 100 MG in SODIUM CHLORIDE 0.9% 100 ML IVPB SCH (08:53)
[2020-03-30] MEDS: ASPIRIN 81 MG PO SCH (08:54)
[2020-03-30] MEDS: atenoloL 25 MG TAB PO SCH ×2 (08:54→21:44)
[2020-03-30] MEDS: HEPARIN SODIUM,PORCINE 5,000 UNIT/ML 1 ML VIAL SQ SCH ×3 (08:54→23:45)
[2020-03-30] MEDS: CLOPIDOGREL 75 MG TAB PO SCH (08:54)
[2020-03-30] MEDS ORDERED: FUROSEMIDE 10 MG/ML 4 ML VIAL IV STA (09:23)
[2020-03-30 11:31] LABS: Glucose,Whole Blood 270 mg/dL (75-99)
[2020-03-30 11:59] LABS: Glucose,Whole Blood 262 mg/dL (75-99)
--- NOTE | 2020-03-30 12:07 | PN ---
PROGRESS NOTE Mansi is 69-year-old lady who is in the intensive care unit with history of paroxysmal atrial fibrillation, TIA and carotid stenosis and has renal failure. She has septicemia with positive blood cultures for Daylin, but these cultures have resolved. Patient's confusion is as gone, she is sitting up talking. Remains in sinus rhythm and blood pressure is normal. On exam, heart rate is 70 beats per minute. Blood pressure is 132/60, respiratory rate is 18. There is no jugular venous distention. Carotid upstroke is normal. There is no bruit. Chest exam reveals good air entry bilaterally. Heart exam reveals first and second heart sounds. No gallop. Exam of the extremities did not reveal any edema. Peripheral pulses are felt. LABS: Show a hemoglobin of 9.6, BUN is 31, creatinine is 1.6. ASSESSMENT: Paroxysmal atrial fibrillation. PLAN: Patient is in sinus rhythm. No further cardiac workup at this time. Continue current medications. MMODL / IJN: [id number] /
[2020-03-30] MEDS: AMPICILLIN-SULBACTAM 3 GM in SODIUM CHLORIDE 0.9% 100 ML IVPB SCH ×2 (12:15→23:45)
[2020-03-30] MEDS ORDERED: LIDOCAINE 1% INJ 10MG/ML (20 ML MDV) ONE (13:29)
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
--- NOTE | 2020-03-30 13:45 | P.PN ---
Subjective Progress Note Date: 03/30/20 (delayed charting seen at 0930) Principal diagnosis: weakness Patient is a 69-year-old female with atrial fibrillation, kidney stones, and prior CVA who presented initially to [facility] with complaints of generalized weakness. She was subsequently transferred here. On arrival to the emergency department at [facility] she was satting 97% on 5 L nasal cannula. Initial laboratory analysis was remarkable for a d-dimer of 4.5, hemoglobin 10.1, carbon dioxide 16, BUN 50, creatinine 3.39, magnesium 1.4, troponin 0.037, BNP 6460. Chest x-ray showed pulmonary infiltrates consistent with primary fibrosis. 2 admitted for possible pulmonary embolism versus non- STEMI. She was started on a heparin drip, aspirin, and statin. CT angios was not performed secondary to acute kidney injury. Venous Doppler was negative for DVT. VQ scan showed low probability for pulmonary emboli. Echocardiogram showed an ejection fraction of 50-55% with grade 1 diastolic dysfunction. Nephrology was consulted and recommended continuing normal saline, adding sodium bicarb, checking urinalysis and renal ultrasound. Renal ultrasound demonstrated mild right-sided hydronephrosis with small nephrolithiasis. Urology was consulted and reviewed her computed tomography scan from [facility] demonstrating a 3.5 x 4.5 calculus fragment in the right proximal ureter with mild to moderate hydronephrosis at that point in time and did not recommend placement of a double-J stent. She seen by cardiology for elevated troponins which normalized by the second set of troponins. She was seen by pulmonary who recommended weaning down her FiO2 as tolerated, continue gentle hydration, and discontinuation of IV heparin as there is no indication for pulmonary embolism and troponin normalized. She underwent a CT abdomen and pelvis here which was nonobstructing calculus at the right ureteropelvic junction with right-sided hydronephrosis. Overnight on 03/23 the patient had worsening tachypnea and hypoxia, critical care was contacted and the patient was moved to the ICU. Her blood cultures came back with Daylin. She was started on Eraxis. Infectious disease was consulted who recommended placement of double-J stent for drainage. On 03/25 she underwent cystoscopy with placement of right double-J catheter she tolerated the procedure well. Urine cultures demonstrated Group D enterococcus and Unasyn was continued. Chest x-ray did show some pulmonary edema and she was started on Lasix. On the morning of 03/28 she had increasing confusion and diso rientation. She subsequently underwent MRI of the brain which showed a left jugulodigastric mass 2.[address] of the neck with contrast. However patient's renal function had just started to improve and this CT was delayed until approved by nephrology. She was also seen by psychiatry, she had been off of her Seroquel since admission and this was restarted at 50 mg twice daily, this was then decreased. Her blood cultures from 03/24 remained negative for 72 hours. Patient seen and examined at bedside. Angry and wants to go home, we discussed that she was only able to walk 5 feet without resting and 10 feet in total. She denies chest pain difficult breathing nausea, vomiting, and diarrhea. She has no other complaints currently. General: Ill-appearing, no distress, appears at stated age Derm: warm, dry Head: atraumatic, normocephalic, symmetric Eyes: EOMI, no lid lag, anicteric sclera Mouth: no lip lesion, mucus membranes moist Cardiovascular: S1S2 reg, no murmur, positive posterior tibial pulse bilateral, Lungs: Decreased bs bilateral, no rhonchi, no rales , no accessory muscle use Abdominal: soft, nontender to palpation, no guarding, no appreciable organomegaly Ext: no gross muscle atrophy, no edema, no contractures Neuro: CN II-XI grossly intact, no focal neuro deficits Psych: Alert, oriented, flat affect Candidemia - ID recs: Place PICC line, Caspofungin 2-4 weeks total - Eraxis Left neck mass - May need CT of neck with contrast to rule out infectious etiology, however states not new finding and related to prior surgery, with clearing kike emia doubt clincally significant - D/W nephro attempt to await if not urgent Enterococcus urinary tract infection, complicated status post placement of double-J ureteral stent -ID recs -Urology recommendations appreciated, will need here cysto and lithotripsy but will be deferred at least 3 weeks secondary to candidemia -Continue with Unasyn D # 6 Acute hypoxic respiratory failure secondary likely secondary to acute lung injury -Pulmonary recommendations -Wean O2 as able -Supportive care Toxic metabolic encephalopathy, improving -Likely secondary to sepsis -Check MRI brain which demonstrated a mass in the left neck will follow with CT (will check with nephro in AM to see if ok for contrast with recent ROCIO) -Psychiatry recommendations: Seroquel 50 mg by mouth nightly Acute kidney injury secondary to ATN with some degree of obstructive uropathy, right-sided hydronephrosis, metabolic acidosis -Nephrology recommendations appreciated -Creatinine improving -Avoid additional nephrotoxic agents -Follow renal profile -Status post urethral stent placement Chronic kidney disease stage III secondary to diabetes -Outpatient follow-up Diabetes mellitus type 2 - Long-acting, fixed dose, and sliding scale insulin - Follow blood sugars - A1c pending Hypertension, controlled -Atenolol -Follow blood pressures Anemia, present at baseline -Follow CBC, currently stable, further workup as outpatient Hypokalemia, resolved Chronic conditions: Atrial fibrillation History of a vascular accident Hypomagnesemia, resolved DVT prophylaxis: Heparin Discussed with: Patient, nursing, ID Anticipated discharge: in AM Anticipated discharge place: SNF A total of 35 minutes was spent on the care of this complex patient more than 50% of the time was spent in counseling and care coordination. Objective - Vital Signs Vital signs: Vital Signs Temp 98 F 03/30/20 12:00 Pulse 68 03/30/20 12:00 Resp 20 03/30/20 12:00 BP 135/65 03/30/20 12:00 Pulse Ox 92 L 03/30/20 12:00 Intake & Output 03/29/20 03/30/20 03/30/20 18:59 06:59 18:59 Intake Total 1560 350 830 Output Total 1000 725 350 Balance 560 -375 480 Weight 75.3 kg 77.5 kg Intake: IV 160 100 0.9 NS 60 Ampicillin-Sulbactam 3 gm 100 In Sodium Chloride 0.9% 100 ml @ 200 mls/hr IVPB Q12H [facility] Rx#:[id number] Anidulafungin 100 mg In 100 Sodium Chloride 0.9% 100 ml @ 84 mls/hr IVPB DAILY [facility] Rx#:[id number] Intake, IV Titration 500 200 Amount Ampicillin-Sulbactam 3 gm 100 100 In Sodium Chloride 0.9% 100 ml @ 200 mls/hr IVPB Q12H [facility] Rx#:[id number] Anidulafungin 100 mg In 100 Sodium Chloride 0.9% 100 ml @ 84 mls/hr IVPB DAILY [facility]SEPH Rx#:[id number] Magnesium Sulfate-D5w Pmx 400 1 gm In Dextrose/Water 1 100ml.bag @ 100 mls/hr IVPB Q1H [facility] Rx#: [id number] Oral 900 250 630 Output: Urine 1000 725 350 Other: Voiding Method Bedside Commode Bedside Commode Bedside Commode # Voids 1 0 1 # Bowel Movements 1 1 - Labs CBC & Chem 7: 03/30/20 06:51 03/30/20 06:51 Labs: Abnormal Lab Results - Last 24 Hours (Table) 03/29/20 03/29/20 03/30/20 Range/Units 17:06 20:27 01:56 RBC (3.80-5.40) m/uL Hgb (11.4-16.0) gm/dL Hct (34.0-46.0) % MCV (80.0-100.0) fL MCHC (31.0-37.0) g/dL Chloride (98-107) mmol/L Carbon Dioxide (22-30) mmol/L BUN (7-17) mg/dL Creatinine (0.52-1.04) mg/dL Glucose (74-99) mg/dL POC Glucose (mg/dL) 225 H 211 H 186 H (75-99) mg/dL Calcium (8.4-10.2) mg/dL Total Protein (6.3-8.2) g/dL Albumin (3.5-5.0) g/dL 03/30/20 03/30/20 03/30/20 Range/Units 06:51 06:51 06:53 RBC 3.09 L (3.80-5.40) m/uL Hgb 9.6 L (11.4-16.0) gm/dL Hct 31.3 L (34.0-46.0) % MCV 101.3 H (80.0-100.0) fL MCHC 30.6 L (31.0-37.0) g/dL Chloride 97 L (98-107) mmol/L Carbon Dioxide 36 H (22-30) mmol/L BUN 31 H (7-17) mg/dL Creatinine 1.60 H (0.52-1.04) mg/dL Glucose 170 H (74-99) mg/dL POC Glucose (mg/dL) 166 H (75-99) mg/dL Calcium 7.5 L (8.4-10.2) mg/dL Total Protein 6.1 L (6.3-8.2) g/dL Albumin 2.8 L (3.5-5.0) g/dL 03/30/20 03/30/20 Range/Units 11:29 11:57 RBC (3.80-5.40) m/uL Hgb (11.4-16.0) gm/dL Hct (34.0-46.0) % MCV (80.0-100.0) fL MCHC (31.0-37.0) g/dL Chloride (98-107) mmol/L Carbon Dioxide (22-30) mmol/L BUN (7-17) mg/dL Creatinine (0.52-1.04) mg/dL Glucose (74-99) mg/dL POC Glucose (mg/dL) 270 H 262 H (75-99) mg/dL Calcium (8.4-10.2) mg/dL Total Protein (6.3-8.2) g/dL Albumin (3.5-5.0) g/dL Microbiology - Last 24 Hours (Table) 03/27/20 10:07 Blood Culture - Preliminary Blood No Growth after 72 hours 03/27/20 10:07 Blood Culture - Preliminary Blood No Growth after 72 hours 03/29/20 06:28 Blood Culture - Preliminary Blood No Growth after 24 hours 03/28/20 06:08 Blood Culture - Preliminary Blood No Growth after 48 hours
[2020-03-30] MEDS ORDERED: LIDOCAINE 1% INJ 10MG/ML (20 ML MDV) SQ ONE (14:07)
--- NOTE | 2020-03-30 14:47 | XR ---
EXAMINATION TYPE: XR chest 1V portable DATE OF EXAM: 03/30/2020 HISTORY: Shortness of breath. COMPARISON: 03/30/2020 TECHNIQUE: Single view of the chest is submitted. FINDINGS: Demonstrated are scattered senescent parenchymal change. There is no evidence for focal infiltrate. The heart is stable. Right-sided PICC line identified with its distal tip overlying the SVC. Hilar and mediastinal structures are within normal limits. Degenerative changes are seen of the dorsal spine. IMPRESSION: 1. Chronic changes without evidence for acute pulmonary disease.
[2020-03-30 15:35] LABS: Glucose,Whole Blood 180 mg/dL (75-99)
--- NOTE | 2020-03-30 15:52 | PN ---
PROGRESS NOTE Patient is seen for followup for acute kidney injury. The patient denies any significant complaints. She did get IV Lasix this morning. She continues to have good urine output. On examination, blood pressure was 135/60, heart rate 60 per minute. She is afebrile. EXAMINATION OF THE HEART: S1 and S2. EXAMINATION OF LUNGS: Bilateral breath sounds are heard. ABDOMEN: Soft, non-tender. Examination of lower extremities shows no significant edema. FIRE PILOT exam is grossly intact. Labs show sodium 142, potassium 3.5. CO2 is 36, BUN 31, creatinine 1.6, hemoglobin 9.6 g/dL. ASSESSMENT: 1. Acute kidney injury, acute tubular necrosis, currently improved. Renal function staying stable with creatinine at 1.6. Previous creatinine as low as 1.19 in August of 2019. 2. Candidemia, maintained on antifungal treatment. 3. Enterococcus urinary tract infection, currently on antibiotics. 4. Obstructive uropathy with right hydronephrosis, status post ureteral stent placement. 5. Chronic kidney disease, stage 3, secondary to diabetic kidney disease. Baseline creatinine 1 to 1.2. 6. Encephalopathy, now resolved. PLAN: May continue antibiotics and antifungal treatment. Monitor renal function. Avoid hypotension and other nephrotoxic agents. Repeat labs in a.m. MMODL / IJN: [id number] /
[2020-03-30] MEDS: oxyCODONE-APAP 5-325MG 1 EACH TAB PO PRN ×2 (16:02→21:43)
[2020-03-30 17:27] LABS: Glucose,Whole Blood 151 mg/dL (75-99)
[2020-03-30] MEDS: LACTOBACILLUS ACIDOPH & BULGAR 1 EACH PACKET PO SCH ×2 (17:34→21:52)
[2020-03-30] MEDS: ATORVASTATIN 40 MG TAB PO SCH (21:43)
[2020-03-30] MEDS: QUEtiapine 50 MG TAB PO SCH (21:44)
[2020-03-30 21:49] LABS: Glucose,Whole Blood 180 mg/dL (75-99)
[2020-03-30] MEDS: INSULIN DETEMIR (LEVEMIR) 100 UNIT/ML SYR SQ SCH (21:52)
--- NOTE | 2020-03-30 23:14 | PN ---
PROGRESS NOTE DATE OF SERVICE: 03/30/2020 REASON FOR FOLLOWUP: Candidemia, possible complicated urinary source. INTERVAL HISTORY: The patient is currently afebrile. The patient is breathing comfortably. The patient denies having any chest pain or shortness of breath or cough. No nausea, no vomiting. Did have some diarrhea. Apparently it did improve. PHYSICAL EXAMINATION: Blood pressure 120/73 with a pulse of 75, temperature 98.6. She is 92% on 2 L nasal cannula. General description is an elderly female lying in bed in no distress. RESPIRATORY SYSTEM: Unlabored breathing. Clear to auscultation anteriorly. HEART: S1, S2. Regular rate and rhythm. ABDOMEN: Soft. No tenderness. EXTREMITIES: No edema of the feet. LABS: Hemoglobin is 9.6, white count 10.1, BUN of 31, creatinine 1.60. DIAGNOSTIC IMPRESSION AND PLAN: Patient with candidemia, source likely complicated urinary tract infection, as no other obvious focus of infection. Blood culture has been negative. Patient is currently covered with Eraxis. That will be continued for another 2 weeks to finish her course of therapy, for which the patient might have to go to the half-way per admitting team. Continue with supportive care. MMODL / IJN: [id number] /
[2020-03-31 06:29] LABS: Glucose,Whole Blood 139 mg/dL (75-99)
[2020-03-31 07:00] LABS: Glucose,Whole Blood 148 mg/dL (75-99)
[2020-03-31] MEDS: INSULIN ASPART (NovoLOG) 100 UNIT/ML VIAL SQ SCH ×7 (07:24→21:18)
[2020-03-31] MEDS: ASPIRIN 81 MG PO SCH (09:14)
[2020-03-31] MEDS: atenoloL 25 MG TAB PO SCH ×2 (09:14→21:18)
[2020-03-31] MEDS: LACTOBACILLUS ACIDOPH & BULGAR 1 EACH PACKET PO SCH ×3 (09:14→21:18)
[2020-03-31] MEDS: HEPARIN SODIUM,PORCINE 5,000 UNIT/ML 1 ML VIAL SQ SCH ×2 (09:14→15:59)
[2020-03-31] MEDS: CLOPIDOGREL 75 MG TAB PO SCH (09:14)
[2020-03-31] MEDS: ANIDULAFUNGIN 100 MG in SODIUM CHLORIDE 0.9% 100 ML IVPB SCH (09:15)
[2020-03-31] MEDS: oxyCODONE-APAP 5-325MG 1 EACH TAB PO PRN (09:33)
[2020-03-31 10:43] LABS: HCT 29.6 % (34.0-46.0); HGB 9.3 gm/dL (11.4-16.0); Hypochromasia Slight; MCHC 31.5 g/dL (31.0-37.0); MCV 98.5 fL (80.0-100.0); Mean Platelet Volume 7.9; Platelet Count 353 k/uL (150-450); RBC 3.01 m/uL (3.80-5.40); RDW 14.3 % (11.5-15.5); WBC 9.8 k/uL (3.8-10.6)
[2020-03-31 11:06] LABS: Potassium 3.1 mmol/L (3.5-5.1); Total Protein 6.4 g/dL (6.3-8.2)
[2020-03-31 11:07] LABS: Calcium 7.4 mg/dL (8.4-10.2); Magnesium 1.5 mg/dL (1.6-2.3); Total Bilirubin 0.5 mg/dL (0.2-1.3)
--- NOTE | 2020-03-31 12:09 | PN ---
PROGRESS NOTE Mansi is a 69-year-old lady that is admitted to hospital with renal insufficiency, sepsis and candidemia. She looks much better. Her confusion has resolved. She is doing well and stable for discharge. We are following her for paroxysmal atrial fibrillation. This morning, she remains in sinus rhythm and is free of symptoms. She is not on long-term oral anticoagulation as she was thought not to be a good candidate. Currently on aspirin, Tenormin, Lipitor and Plavix. PHYSICAL EXAMINATION: On exam vital signs are stable. There is no jugular venous distention. Chest exam reveals good air entry bilaterally. Heart exam reveals first and second heart sounds. No gallop. No murmur. ABDOMEN: Soft. Exam of extremities did not reveal any edema. Peripheral pulses are felt. ASSESSMENT: Paroxysmal atrial fibrillation. PLAN: Patient is doing well, stable for discharge. We will see her on an as-needed basis. MMODL / IJN: [id number] /
[2020-03-31 12:30] LABS: Glucose,Whole Blood 221 mg/dL (75-99)
[2020-03-31] MEDS: AMPICILLIN-SULBACTAM 3 GM in SODIUM CHLORIDE 0.9% 100 ML IVPB SCH (12:30)
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
[2020-03-31] MEDS: POTASSIUM CHLORIDE ER 20 MEQ TAB.ER PO SCH ×2 (13:02→15:59)
--- NOTE | 2020-03-31 14:36 | PN ---
PROGRESS NOTE DATE OF SERVICE: 03/31/2020 REASON FOR FOLLOW UP: Candidemia, possible urinary source. INTERVAL HISTORY: Patient is currently afebrile. The patient is feeling better. Breathing comfortably. Patient denies having any chest pain. No shortness of breath. No cough. No nausea. No abdominal pain. Diarrhea has resolved. PHYSICAL EXAMINATION: Blood pressure 120/59 with a pulse of 71, temperature 98.7. She is 94% on 2 L nasal cannula. General description is an elderly female lying in bed in no distress. Respiratory system: Unlabored breathing, clear to auscultation anteriorly. Heart S1, S2. Regular rate and rhythm. Abdomen is soft, no tenderness> Extremities: No edema of feet. LABS: Hemoglobin is 9.8, white count 9.8, BUN of 30, creatinine 1.72. DIAGNOSTIC IMPRESSION AND PLAN: Patient with Candidemia, possibly source is urinary in this patient who did have a hydronephrosis status post cystoscopy and ureteral stent placement. Blood culture repeat 03/27 has been negative. She will get a two week course of IV ( ) or caspofungin. Diflucan could not be used because of the medication patient is on with interaction. Family was at the bedside. Their questions were answered. MMODL / IJN: [id number] /
--- NOTE | 2020-03-31 15:42 | PN ---
PROGRESS NOTE Patient is seen for followup for acute kidney injury on top of chronic kidney disease; previous creatinine about 1.1 to 1.0 mg/dL. Serum creatinine had improved from about 3.7 initially to about 1.6 to 1.7 mg/dL. Patient received IV Lasix yesterday. Her creatinine is slightly higher at 1.7 today. She denies any significant complaints. PHYSICAL EXAMINATION: Blood pressure is 120/59, heart rate 61 per minute. Patient is afebrile. EXAMINATION OF THE HEART: S1 and S2. EXAMINATION OF LUNGS: Bilateral breath sounds are heard. ABDOMEN: Soft, non-tender. Examination of lower extremities shows no evidence of edema. [employer] exam is grossly intact. LABS: Labs show sodium 137, potassium 3.1, chloride 94. CO2 is 34, BUN 30, creatinine 1.72, hemoglobin 9.3 g/dL. ASSESSMENT: 1. Acute kidney injury, acute tubular necrosis, currently improved from admission. Serum creatinine staying 1.6 to 1.7 mg/dL. Continue off of diuretics for now. 2. Obstructive uropathy with right hydronephrosis and right ureteral stone, status post cystoscopy and right ureteral stent placement. 3. Sepsis from systemic fungemia and urinary tract infection with urine culture growing Enterococcus faecalis. 4. Acute hypoxic respiratory failure, currently improved. 5. Peripheral vascular disease and history of bilateral carotid endarterectomies. 6. History of nephrolithiasis with previous lithotripsies. PLAN: Continue off of diuretics. Replace potassium. Repeat labs in a.m. Encourage increased oral intake. The patient will need followup as outpatient for CKD. MMODL / IJN: [id number] /
[2020-03-31 16:57] LABS: Glucose,Whole Blood 96 mg/dL (75-99)
--- NOTE | 2020-03-31 20:19 | P.PN ---
Subjective Progress Note Date: 03/31/20 (delayed charting seen at 0915) Principal diagnosis: weakness Patient is a 69-year-old female with atrial fibrillation, kidney stones, and prior CVA who presented initially to [facility] with complaints of generalized weakness. She was subsequently transferred here. On arrival to the emergency department at [facility] she was satting 97% on 5 L nasal cannula. Initial laboratory analysis was remarkable for a d-dimer of 4.5, hemoglobin 10.1, carbon dioxide 16, BUN 50, creatinine 3.39, magnesium 1.4, troponin 0.037, BNP 6460. Chest x-ray showed pulmonary infiltrates consistent with primary fibrosis. 2 admitted for possible pulmonary embolism versus non- STEMI. She was started on a heparin drip, aspirin, and statin. CT angios was not performed secondary to acute kidney injury. Venous Doppler was negative for DVT. VQ scan showed low probability for pulmonary emboli. Echocardiogram showed an ejection fraction of 50-55% with grade 1 diastolic dysfunction. Nephrology was consulted and recommended continuing normal saline, adding sodium bicarb, checking urinalysis and renal ultrasound. Renal ultrasound demonstrated mild right-sided hydronephrosis with small nephrolithiasis. Urology was consulted and reviewed her computed tomography scan from [facility] demonstrating a 3.5 x 4.5 calculus fragment in the right proximal ureter with mild to moderate hydronephrosis at that point in time and did not recommend placement of a double-J stent. She seen by cardiology for elevated troponins which normalized by the second set of troponins. She was seen by pulmonary who recommended weaning down her FiO2 as tolerated, continue gentle hydration, and discontinuation of IV heparin as there is no indication for pulmonary embolism and troponin normalized. She underwent a CT abdomen and pelvis here which was nonobstructing calculus at the right ureteropelvic junction with right-sided hydronephrosis. Overnight on 03/23 the patient had worsening tachypnea and hypoxia, critical care was contacted and the patient was moved to the ICU. Her blood cultures came back with Daylin. She was started on Eraxis. Infectious disease was consulted who recommended placement of double-J stent for drainage. On 03/25 she underwent cystoscopy with placement of right double-J catheter she tolerated the procedure well. Urine cultures demonstrated Group D enterococcus and Unasyn was continued. Chest x-ray did show some pulmonary edema and she was started on Lasix. On the morning of 03/28 she had increasing confusion and diso rientation. She subsequently underwent MRI of the brain which showed a left jugulodigastric mass 2.[address] of the neck with contrast. However patient's renal function had just started to improve and this CT was delayed until approved by nephrology. She was also seen by psychiatry, she had been off of her Seroquel since admission and this was restarted at 50 mg twice daily, this was then decreased. Her blood cultures from 03/24 remained negative for 72 hours. Her oxygen requirements were slowly decreasing. Patient seen and examined at bedside.pleasnat and denies pain, tired, no shortness of breath, no nausea, no vomiting. Wants to go home with PICC and IV antifungals and again explained need for SNF due to weakness and inability to leave home with this leave of weakness. General: Ill-appearing, no distress, appears at stated age Derm: warm, dry Head: atraumatic, normocephalic, symmetric Eyes: EOMI, no lid lag, anicteric sclera Mouth: no lip lesion, mucus membranes moist Cardiovascular: S1S2 reg, no murmur, positive posterior tibial pulse bilateral, Lungs: CTA bilateral, no rhonchi, no rales , no accessory muscle use Abdominal: soft, nontender to palpation, no guarding, no appreciable organomegaly Ext: no gross muscle atrophy, no edema, no contractures Neuro: CN II-XI grossly intact, no focal neuro deficits Psych: Alert, oriented, flat affect Candidemia - ID recs: PICC line in place, Caspofungin 2-4 weeks total - Eraxis Left neck mass - May need CT of neck with contrast to rule out infectious etiology, however states not new finding and related to prior surgery, with clearing fungemia doubt clincally significant - D/W nephro attempt to await if not urgent Enterococcus urinary tract infection, complicated status post placement of double-J ureteral stent -ID recs -Urology recommendations appreciated, will need here cysto and lithotripsy but will be deferred at least 3 weeks secondary to candidemia -Continue with Unasyn D # 8 Acute hypoxic respiratory failure secondary likely secondary to acute lung injury -Pulmonary recommendations -Wean O2 as able -Supportive care Toxic metabolic encephalopathy, improving -Likely secondary to sepsis -Check MRI brain which demonstrated a mass in the left neck will follow with CT -Psychiatry recommendations: Seroquel 50 mg by mouth nightly Acute kidney injury secondary to ATN with some degree of obstructive uropathy, right-sided hydronephrosis, metabolic acidosis -Nephrology recommendations appreciated -Creatinine improving -Avoid additional nephrotoxic agents -Follow renal profile -Status post urethral stent placement Chronic kidney disease stage III secondary to diabetes -Outpatient follow-up Diabetes mellitus type 2 - Long-acting, fixed dose, and sliding scale insulin - Follow blood sugars - A1c pending Hypertension, controlled -Atenolol -Follow blood pressures Anemia, present at baseline -Follow CBC, currently stable, further workup as outpatient Hypokalemia, resolved Chronic conditions: Atrial fibrillation History of a vascular accident Hypomagnesemia, resolved discharge delayed as awaiting COVID testing DVT prophylaxis: Heparin Discussed with: Patient, nursing, ID Anticipated discharge: in AM Anticipated discharge place: [facility] A total of 35 minutes was spent on the care of this complex patient more than 50% of the time was spent in counseling and care coordination. Objective - Vital Signs Vital signs: Vital Signs Temp 98.7 F 03/31/20 08:00 Pulse 61 03/31/20 08:00 Resp 26 H 03/31/20 16:00 BP 117/77 03/31/20 16:00 Pulse Ox 95 03/31/20 16:00 Intake & Output 03/31/20 03/31/20 04/01/20 06:59 18:59 06:59 Intake Total 540 Output Total 250 Balance 540 -250 Weight 78.3 kg Intake: Oral 540 Output: Urine 250 Other: Voiding Method Bedside Commode # Voids 0 1 # Bowel Movements 0 1 - Labs CBC & Chem 7: 03/31/20 10:09 03/31/20 18:55 Labs: Abnormal Lab Results - Last 24 Hours (Table) 03/30/20 03/31/20 03/31/20 Range/Units 21:47 06:27 06:59 RBC (3.80-5.40) m/uL Hgb (11.4-16.0) gm/dL Hct (34.0-46.0) % Potassium (3.5-5.1) mmol/L Chloride (98-107) mmol/L Carbon Dioxide (22-30) mmol/L BUN (7-17) mg/dL Creatinine (0.52-1.04) mg/dL Glucose (74-99) mg/dL POC Glucose (mg/dL) 180 H 139 H 148 H (75-99) mg/dL Calcium (8.4-10.2) mg/dL Magnesium (1.6-2.3) mg/dL Albumin (3.5-5.0) g/dL 03/31/20 03/31/20 03/31/20 Range/Units 10:09 10:09 12:28 RBC 3.01 L (3.80-5.40) m/uL Hgb 9.3 L (11.4-16.0) gm/dL Hct 29.6 L (34.0-46.0) % Potassium 3.1 L (3.5-5.1) mmol/L Chloride 94 L (98-107) mmol/L Carbon Dioxide 34 H (22-30) mmol/L BUN 30 H (7-17) mg/dL Creatinine 1.72 H (0.52-1.04) mg/dL Glucose 209 H (74-99) mg/dL POC Glucose (mg/dL) 221 H (75-99) mg/dL Calcium 7.4 L (8.4-10.2) mg/dL Magnesium 1.5 L (1.6-2.3) mg/dL Albumin 3.0 L (3.5-5.0) g/dL Microbiology - Last 24 Hours (Table) 03/27/20 10:07 Blood Culture - Preliminary Blood No Growth after 96 hours 03/27/20 10:07 Blood Culture - Preliminary Blood No Growth after 96 hours 03/29/20 06:28 Blood Culture - Preliminary Blood No Growth after 48 hours 03/28/20 06:08 Blood Culture - Preliminary Blood No Growth after 72 hours
[2020-03-31 21:02] LABS: Glucose,Whole Blood 180 mg/dL (75-99)
[2020-03-31] MEDS: ATORVASTATIN 40 MG TAB PO SCH (21:18)
[2020-03-31] MEDS: INSULIN DETEMIR (LEVEMIR) 100 UNIT/ML SYR SQ SCH (21:18)
[2020-03-31] MEDS: QUEtiapine 50 MG TAB PO SCH (21:18)
[2020-04-01] MEDS: AMPICILLIN-SULBACTAM 3 GM in SODIUM CHLORIDE 0.9% 100 ML IVPB SCH ×2 (00:17→12:24)
[2020-04-01] MEDS: HEPARIN SODIUM,PORCINE 5,000 UNIT/ML 1 ML VIAL SQ SCH ×3 (00:17→18:00)
[2020-04-01 06:57] LABS: Glucose,Whole Blood 97 mg/dL (75-99)
[2020-04-01 07:09] LABS: HCT 30.7 % (34.0-46.0); HGB 9.4 gm/dL (11.4-16.0); Hypochromasia Slight; MCH 30.3 pg (25.0-35.0); MCHC 30.7 g/dL (31.0-37.0); MCV 98.6 fL (80.0-100.0); Mean Platelet Volume 7.5; Platelet Count 379 k/uL (150-450); RBC 3.11 m/uL (3.80-5.40); RDW 14.3 % (11.5-15.5)
[2020-04-01] MEDS: INSULIN ASPART (NovoLOG) 100 UNIT/ML VIAL SQ SCH ×6 (07:09→20:20)
[2020-04-01 07:20] LABS: Calcium 8.1 mg/dL (8.4-10.2); Magnesium 1.4 mg/dL (1.6-2.3); Potassium 3.6 mmol/L (3.5-5.1)
[2020-04-01] MEDS: atenoloL 25 MG TAB PO SCH ×2 (09:53→20:20)
[2020-04-01] MEDS: LACTOBACILLUS ACIDOPH & BULGAR 1 EACH PACKET PO SCH ×3 (09:54→22:42)
[2020-04-01] MEDS: ASPIRIN 81 MG PO SCH (09:54)
[2020-04-01] MEDS: ANIDULAFUNGIN 100 MG in SODIUM CHLORIDE 0.9% 100 ML IVPB SCH (09:54)
[2020-04-01] MEDS: CLOPIDOGREL 75 MG TAB PO SCH (09:54)
--- NOTE | 2020-04-01 11:28 | PN ---
PROGRESS NOTE DATE OF SERVICE: 04/01/2020 REASON FOR FOLLOW UP: Candidemia, urinary source. INTERVAL HISTORY: The patient is currently afebrile. The patient is feeling better. Breathing comfortably. Denies having any chest pain or shortness of breath. No cough. No nausea, no vomiting. No abdominal pain. No diarrhea. PHYSICAL EXAMINATION: Blood pressure 113/56, pulse of 57, temperature 98.1. She is 98% on room air. General description is an elderly female lying in bed in no distress. Respiratory system: Unlabored breathing, clear to auscultation anteriorly. Heart S1, S2. Regular rate and rhythm. ABDOMEN: Soft. No tenderness. LABS: Followup blood culture has been negative. DIAGNOSTIC IMPRESSION/PLAN: Candidemia, source likely complicated urinary tract infection. PLAN: At this time is to continue with Eraxis 100 mg daily for 2 weeks to finish course of therapy and close outpatient followup. MMODL / IJN: [id number] /
[2020-04-01 11:40] LABS: Glucose,Whole Blood 267 mg/dL (75-99)
[2020-04-01 12:04] LABS: Glucose,Whole Blood 368 mg/dL (75-99)
[2020-04-01 12:11] LABS: Glucose,Whole Blood 375 mg/dL (75-99)
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
--- NOTE | 2020-04-01 13:58 | P.PN ---
Subjective Progress Note Date: 04/01/20 (de;montserrat charting seen at 0845) Principal diagnosis: weakness Patient is a 69-year-old female with atrial fibrillation, kidney stones, and prior CVA who presented initially to [facility] with complaints of generalized weakness. She was subsequently transferred here. On arrival to the emergency department at [facility] she was satting 97% on 5 L nasal cannula. Initial laboratory analysis was remarkable for a d-dimer of 4.5, hemoglobin 10.1, carbon dioxide 16, BUN 50, creatinine 3.39, magnesium 1.4, troponin 0.037, BNP 6460. Chest x-ray showed pulmonary infiltrates consistent with primary fibrosis. 2 admitted for possible pulmonary embolism versus non- STEMI. She was started on a heparin drip, aspirin, and statin. CT angios was not performed secondary to acute kidney injury. Venous Doppler was negative for DVT. VQ scan showed low probability for pulmonary emboli. Echocardiogram showed an ejection fraction of 50-55% with grade 1 diastolic dysfunction. Nephrology was consulted and recommended continuing normal saline, adding sodium bicarb, checking urinalysis and renal ultrasound. Renal ultrasound demonstrated mild right-sided hydronephrosis with small nephrolithiasis. Urology was consulted and reviewed her computed tomography scan from [facility] demonstrating a 3.5 x 4.5 calculus fragment in the right proximal ureter with mild to moderate hydronephrosis at that point in time and did not recommend placement of a double-J stent. She seen by cardiology for elevated troponins which normalized by the second set of troponins. She was seen by pulmonary who recommended weaning down her FiO2 as tolerated, continue gentle hydration, and discontinuation of IV heparin as there is no indication for pulmonary embolism and troponin normalized. She underwent a CT abdomen and pelvis here which was nonobstructing calculus at the right ureteropelvic junction with right-sided hydronephrosis. Overnight on 03/23 the patient had worsening tachypnea and hypoxia, critical care was contacted and the patient was moved to the ICU. Her blood cultures came back with Daylin. She was started on Eraxis. Infectious disease was consulted who recommended placement of double-J stent for drainage. On 03/25 she underwent cystoscopy with placement of right double-J catheter she tolerated the procedure well. Urine cultures demonstrated Group D enterococcus and Unasyn was continued. Chest x-ray did show some pulmonary edema and she was started on Lasix. On the morning of 03/28 she had increasing confusion and diso rientation. She subsequently underwent MRI of the brain which showed a left jugulodigastric mass 2.[address] a CT of the neck with contrast. 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 She was also seen by psychiatry, she had been off of her Seroquel since admission and this was restarted at 50 mg twice daily, this was then decreased. Her blood cultures from 03/24 remained negative for 72 hours. Her oxygen requirements were slowly decreasing. She had a picc line placed for 2 weeks of caspofungin. Patient seen and examined at bedside. Does not want to go to rehab. No chest pain, SOB. Still having some left arm pain. We discussed that she is took week to go for daily out patient infusion and that she has a significant copay. Patient is not happy about the need for rehab but is agreeable to go. General: Ill-appearing, no distress, appears at stated age Derm: warm, dry Head: atraumatic, normocephalic, symmetric Eyes: EOMI, no lid lag, anicteric sclera Mouth: no lip lesion, mucus membranes moist Cardiovascular: S1S2 reg, no murmur, positive posterior tibial pulse bilateral, Lungs: CTA bilateral, no rhonchi, no rales , no accessory muscle use Abdominal: soft, nontender to palpation, no guarding, no appreciable organomegaly Ext: no gross muscle atrophy, no edema, no contractures Neuro: CN II-XI grossly intact, no focal neuro deficits Psych: Alert, oriented, flat affect Candidemia - ID recs: PICC line in place, Caspofungin 2-4 weeks total - Eraxis in house Left neck mass - May need CT of neck with contrast to rule out infectious etiology, however states not new finding and related to prior surgery, with clearing fungemia doubt clincally significant - D/W nephro will hold off on CT as report known and hx, and blood cultures did clear. Enterococcus urinary tract infection, complicated status post placement of double-J ureteral stent -ID recs -Urology recommendations appreciated, will need to have cysto and lithotripsy but will be deferred at least 3 weeks secondary to candidemia -Continue with Unasyn D # 9 Acute hypoxic respiratory failure secondary likely secondary to acute lung injury -Pulmonary recommendations -Wean O2 as able -Supportive care Toxic metabolic encephalopathy, improving -Likely secondary to sepsis -Checked MRI brain which demonstrated a mass in the left neck will follow with CT -Psychiatry recommendations: Seroquel 50 mg by mouth nightly Acute kidney injury secondary to ATN with some degree of obstructive uropathy, right-sided hydronephrosis, metabolic acidosis -Nephrology recommendations appreciated -Creatinine improving -Avoid additional nephrotoxic agents -Follow renal profile -Status post urethral stent placement Chronic kidney disease stage III secondary to diabetes -Outpatient follow-up Diabetes mellitus type 2 - Long-acting, fixed dose, and sliding scale insulin - Follow blood sugars - A1c pending Hypertension, controlled -Atenolol -Follow blood pressures Anemia, present at baseline -Follow CBC, currently stable, further workup as outpatient Hypokalemia, resolved Chronic conditions: Atrial fibrillation History of CVA Hypomagnesemia, resolved COVID negative, but awaiting insurance auth DVT prophylaxis: Heparin Discussed with: Patient, nursing, ID Anticipated discharge: in [address]: SNF A total of 35 minutes was spent on the care of this complex patient more than 50% of the time was spent in counseling and care coordination. Objective - Vital Signs Vital signs: Vital Signs Temp 98.3 F 04/01/20 12:00 Pulse 62 04/01/20 12:00 Resp 18 04/01/20 12:00 BP 116/57 04/01/20 12:00 Pulse Ox 97 04/01/20 12:00 Intake & Output 03/31/20 04/01/20 04/01/20 18:59 06:59 18:59 Intake Total 500 Output Total 250 Balance -250 500 Intake: Oral 500 Output: Urine 250 Other: Voiding Method Bedside Commode Bedside Commode Bedside Commode # Voids 1 2 # Bowel Movements 1 - Labs CBC & Chem 7: 04/01/20 06:42 04/01/20 06:42 Labs: Abnormal Lab Results - Last 24 Hours (Table) 03/31/20 04/01/20 04/01/20 Range/Units 21:01 06:42 06:42 RBC 3.11 L (3.80-5.40) m/uL Hgb 9.4 L (11.4-16.0) gm/dL Hct 30.7 L (34.0-46.0) % MCHC 30.7 L (31.0-37.0) g/dL Carbon Dioxide 31 H (22-30) mmol/L BUN 25 H (7-17) mg/dL Creatinine 1.59 H (0.52-1.04) mg/dL POC Glucose (mg/dL) 180 H (75-99) mg/dL Calcium 8.1 L (8.4-10.2) mg/dL Magnesium 1.4 L (1.6-2.3) mg/dL 04/01/20 04/01/20 04/01/20 Range/Units 11:38 12:02 12:10 RBC (3.80-5.40) m/uL Hgb (11.4-16.0) gm/dL Hct (34.0-46.0) % MCHC (31.0-37.0) g/dL Carbon Dioxide (22-30) mmol/L BUN (7-17) mg/dL Creatinine (0.52-1.04) mg/dL POC Glucose (mg/dL) 267 H 368 H 375 H (75-99) mg/dL Calcium (8.4-10.2) mg/dL Magnesium (1.6-2.3) mg/dL Microbiology - Last 24 Hours (Table) 03/27/20 10:07 Blood Culture - Preliminary Blood No Growth after 120 hours 03/27/20 10:07 Blood Culture - Preliminary Blood No Growth after 120 hours 03/29/20 06:28 Blood Culture - Preliminary Blood No Growth after 72 hours 03/28/20 06:08 Blood Culture - Preliminary Blood No Growth after 96 hours
[2020-04-01] MEDS ORDERED: POTASSIUM CHLORIDE ER 20 MEQ TAB.ER PO STA (14:17)
[2020-04-01 14:21] LABS: Hemoglobin A1C 9.5 % (4.0-6.0)
[2020-04-01] MEDS: oxyCODONE-APAP 5-325MG 1 EACH TAB PO PRN (15:10)
[2020-04-01] MEDS: MAGNESIUM SULFATE-D5W PMX 1 GM in DEXTROSE/WATER 1 100ML.BAG IVPB SCH ×2 (15:11→17:50)
--- NOTE | 2020-04-01 15:37 | PN ---
PROGRESS NOTE Patient is seen for followup for acute kidney injury. She is currently comfortable. Patient denies any significant complaints. Renal function has improved. She will be going to rehab. No complaints of shortness of breath. PHYSICAL EXAMINATION: On examination today, blood pressure was 116/57, heart rate 62 per minute, she is afebrile. Examination of the heart S1, S2. Examination of the lungs, bilateral breath sounds are heard. Abdomen is soft, nontender. Examination of lower extremities shows no evidence of edema. [employer] exam is grossly intact. LABS: Show sodium of 139, potassium 3.6, chloride 98, CO2 is 31, BUN 25, creatinine 1.59, hemoglobin 9.4 g/dL. Magnesium 1.4. ASSESSMENT: 1. Acute kidney injury, improved, currently stable. Patient is not on any IV fluids or diuretics. Etiology obstructive uropathy and acute tubular necrosis. 2. Obstructive uropathy with right hydronephrosis and right ureteral stone status post cystoscopy and right ureteral stent placement. 3. Sepsis from fungemia and urinary tract infection with Enterococcus faecalis. 4. Acute hypoxic respiratory failure. 5. Peripheral vascular disease with history of bilateral carotid endarterectomies. 6. History of nephrolithiasis with previous lithotripsies. PLAN: Replace magnesium. I will give her a small dose of potassium as well as patient has been hypokalemic previously. MMODL / IJN: [id number] /
[2020-04-01 17:56] LABS: Glucose,Whole Blood 217 mg/dL (75-99)
[2020-04-01 20:11] LABS: Glucose,Whole Blood 264 mg/dL (75-99)
[2020-04-01] MEDS: QUEtiapine 50 MG TAB PO SCH (20:20)
[2020-04-01] MEDS: ATORVASTATIN 40 MG TAB PO SCH (20:20)
[2020-04-01] MEDS: MELATONIN 5 MG TABLET PO PRN (21:00)
[2020-04-01] MEDS ORDERED: INSULIN DETEMIR (LEVEMIR) 100 UNIT/ML SYR SQ SCH (21:00)
[2020-04-02] MEDS: HEPARIN SODIUM,PORCINE 5,000 UNIT/ML 1 ML VIAL SQ SCH ×4 (00:44→23:18)
[2020-04-02] MEDS: AMPICILLIN-SULBACTAM 3 GM in SODIUM CHLORIDE 0.9% 100 ML IVPB SCH ×2 (00:56→11:49)
[2020-04-02 06:19] LABS: HCT 31.3 % (34.0-46.0); HGB 9.8 gm/dL (11.4-16.0); Hypochromasia Moderate; MCH 31.2 pg (25.0-35.0); MCHC 31.2 g/dL (31.0-37.0); MCV 100.1 fL (80.0-100.0); Macrocytosis Slight; Mean Platelet Volume 7.6; Platelet Count 396 k/uL (150-450); RBC 3.13 m/uL (3.80-5.40); RDW 14.5 % (11.5-15.5); WBC 10.4 k/uL (3.8-10.6)
[2020-04-02 06:25] LABS: Calcium 8.2 mg/dL (8.4-10.2)
[2020-04-02 07:30] LABS: Glucose,Whole Blood 129 mg/dL (75-99)
[2020-04-02] MEDS: INSULIN ASPART (NovoLOG) 100 UNIT/ML VIAL SQ SCH ×7 (07:36→21:09)
[2020-04-02] MEDS: ASPIRIN 81 MG PO SCH (07:42)
[2020-04-02] MEDS: CLOPIDOGREL 75 MG TAB PO SCH (07:42)
[2020-04-02] MEDS: atenoloL 25 MG TAB PO SCH ×2 (07:42→21:09)
[2020-04-02] MEDS: LACTOBACILLUS ACIDOPH & BULGAR 1 EACH PACKET PO SCH ×3 (07:43→21:09)
[2020-04-02] MEDS: ANIDULAFUNGIN 100 MG in SODIUM CHLORIDE 0.9% 100 ML IVPB SCH (08:08)
--- NOTE | 2020-04-02 10:28 | PN ---
PROGRESS NOTE The patient is seen for followup for acute kidney injury. Renal function has improved significantly with creatinine down to 1.47 today. The patient denies any significant complaints of nausea, vomiting, abdominal pain, diarrhea, chest pain, or shortness of breath. PHYSICAL EXAMINATION: On examination, blood pressure 136/62, heart rate 63 per minute, she is afebrile. Examination of the heart S1, S2. Examination of the lungs, bilateral breath sounds are heard. Abdomen is soft, nontender. Examination of lower extremities shows no evidence of edema. AGILE Q[employer] TE[employer] exam grossly intact. LAB: Show sodium 137, potassium 4.0, chloride 102, CO2 is 24, BUN 24, creatinine 1.47. ASSESSMENT: 1. Acute kidney injury, currently significantly improved, mostly acute tubular necrosis and a component of obstructive uropathy with right hydronephrosis status post right ureteral stent placement. 2. Right hydronephrosis status post cystoscopy, right ureteral stent placement. 3. Sepsis from fungemia urinary tract infection with Enterococcus faecalis. 4. Acute hypoxic respiratory failure, now resolved. 5. Peripheral vascular disease with history of bilateral carotid endarterectomies. 6. History of nephrolithiasis with previous lithotripsies. PLAN: Continue off diuretics. Follow up as outpatient in 1-2 weeks post discharge. MMODL / IJN: [id number] /
[2020-04-02 11:37] LABS: Glucose,Whole Blood 198 mg/dL (75-99)
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
[2020-04-02] MEDS: oxyCODONE-APAP 5-325MG 1 EACH TAB PO PRN (15:57)
--- NOTE | 2020-04-02 16:06 | P.PN ---
Subjective Progress Note Date: 04/02/20 (delayed charting seen at 11am) Principal diagnosis: weakness Patient is a 69-year-old female with atrial fibrillation, kidney stones, and prior CVA who presented initially to [facility] with complaints of generalized weakness. She was subsequently transferred here. On arrival to the emergency department at [facility] she was satting 97% on 5 L nasal cannula. Initial laboratory analysis was remarkable for a d-dimer of 4.5, hemoglobin 10.1, carbon dioxide 16, BUN 50, creatinine 3.39, magnesium 1.4, troponin 0.037, BNP 6460. Chest x-ray showed pulmonary infiltrates consistent with primary fibrosis. 2 admitted for possible pulmonary embolism versus non- STEMI. She was started on a heparin drip, aspirin, and statin. CT angios was not performed secondary to acute kidney injury. Venous Doppler was negative for DVT. VQ scan showed low probability for pulmonary emboli. Echocardiogram showed an ejection fraction of 50-55% with grade 1 diastolic dysfunction. Nephrology was consulted and recommended continuing normal saline, adding sodium bicarb, checking urinalysis and renal ultrasound. Renal ultrasound demonstrated mild right-sided hydronephrosis with small nephrolithiasis. Urology was consulted and reviewed her computed tomography scan from [facility] demonstrating a 3.5 x 4.5 calculus fragment in the right proximal ureter with mild to moderate hydronephrosis at that point in time and did not recommend placement of a double-J stent. She seen by cardiology for elevated troponins which normalized by the second set of troponins. She was seen by pulmonary who recommended weaning down her FiO2 as tolerated, continue gentle hydration, and discontinuation of IV heparin as there is no indication for pulmonary embolism and troponin normalized. She underwent a CT abdomen and pelvis here which was nonobstructing calculus at the right ureteropelvic junction with right-sided hydronephrosis. Overnight on 03/23 the patient had worsening tachypnea and hypoxia, critical care was contacted and the patient was moved to the ICU. Her blood cultures came back with Daylin. She was started on Eraxis. Infectious disease was consulted who recommended placement of double-J stent for drainage. On 03/25 she underwent cystoscopy with placement of right double-J catheter she tolerated the procedure well. Urine cultures demonstrated Group D enterococcus and Unasyn was continued. Chest x-ray did show some pulmonary edema and she was started on Lasix. On the morning of 03/28 she had increasing confusion and diso rientation. She subsequently underwent MRI of the brain which showed a left jugulodigastric mass 2.[address] of the neck with contrast. 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 She was also seen by psychiatry, she had been off of her Seroquel since admission and this was restarted at 50 mg twice daily, this was then decreased. Her blood cultures from 03/24 remained negative for 72 hours. Her oxygen requirements were slowly decreasing. She had a picc line placed for 2 weeks of caspofungin. Patient seen and examined at bedside. She is feeling well today. No complaints. Had a small bowel movement yesterday. No chest pain or shortness of breath. He is preferring the Ventimask over nasal cannula. Is aware that we are awaiting insurance authorization. General: non toxic, no distress, appears at stated age Derm: warm, dry Head: atraumatic, normocephalic, symmetric Eyes: EOMI, no lid lag, anicteric sclera Mouth: no lip lesion, mucus membranes moist Cardiovascular: S1S2 reg, no murmur, positive posterior tibial pulse bilateral, Lungs: CTA bilateral, no rhonchi, no rales , no accessory muscle use Abdominal: soft, nontender to palpation, no guarding, no appreciable organom egaly Ext: no gross muscle atrophy, no edema, no contractures Neuro: CN II-XI grossly intact, no focal neuro deficits Psych: Alert, oriented, flat affect Candidemia - ID recs: PICC line in place, Caspofungin 2-4 weeks total - Eraxis while inpatient Enterococcus urinary tract infection, complicated status post placement of double-J ureteral stent -ID recs -Urology recommendations appreciated, will need to have cysto and lithotripsy but will be deferred at least 3 weeks secondary to candidemia -Completed unasyn X 10 days Acute hypoxic respiratory failure secondary likely secondary to acute lung injury -Pulmonary recommendations -Wean O2 as able -Supportive care Chronic kidney disease stage III secondary to diabetes -Outpatient follow-up -Nephrology recommendations appreciated: f/u outpatinet in 1-2 weeks Diabetes mellitus type 2 - Long-acting, fixed dose, and sliding scale insulin - Follow blood sugars - A1c 9.5 Hypertension, controlled -Atenolol -Follow blood pressures Anemia, present at baseline -Follow CBC, currently stable, further workup as outpatient Left neck mass - May need CT of neck with contrast to rule out infectious etiology, however states not new finding and related to prior surgery, with clearing fungemia doubt clincally significant - D/W nephro will hold off on CT as report known and hx, and blood cultures did clear. Chronic conditions: Atrial fibrillation History of CVA Hypomagnesemia, resolved Hypokalemia, resolved Acute kidney injury secondary to ATN, resolved metabolic acidosis, resolved right-sided hydronephrosis, resolved Toxic metabolic encephalopathy, resolved obstructive uropathy, resolved s/p urethral stent placement COVID negative, but awaiting insurance auth DVT prophylaxis: Heparin Discussed with: Patient, nursing, ID Anticipated discharge: in [address]: SNF A total of 35 minutes was spent on the care of this complex patient more than 50% of the time was spent in counseling and care coordination. Objective - Vital Signs Vital signs: Vital Signs Temp 98.2 F 04/02/20 07:00 Pulse 63 04/02/20 07:00 Resp 20 04/02/20 08:00 BP 136/62 04/02/20 07:00 Pulse Ox 93 L 04/02/20 15:45 Intake & Output 04/01/20 04/02/20 04/02/20 18:59 06:59 18:59 Intake Total 350 300 Output Total 500 Balance 350 -200 Intake: Intake, IV Titration 200 Amount Ampicillin-Sulbactam 3 gm 100 In Sodium Chloride 0.9% 100 ml @ 200 mls/hr IVPB Q12H JOSEPH Rx#:[id number] Anidulafungin 100 mg In 100 Sodium Chloride 0.9% 100 ml @ 84 mls/hr IVPB DAILY JOSEPH Rx#:[id number] Oral 150 300 Output: Urine 500 Other: Voiding Method Bedside Commode Toilet Toilet Bedside Commode Bedside Commode # Voids 2 0 - Labs CBC & Chem 7: 04/02/20 05:48 04/02/20 05:48 Labs: Abnormal Lab Results - Last 24 Hours (Table) 04/01/20 04/01/20 04/02/20 Range/Units 17:54 20:08 05:48 RBC 3.13 L (3.80-5.40) m/uL Hgb 9.8 L (11.4-16.0) gm/dL Hct 31.3 L (34.0-46.0) % MCV 100.1 H (80.0-100.0) fL BUN (7-17) mg/dL Creatinine (0.52-1.04) mg/dL Glucose (74-99) mg/dL POC Glucose (mg/dL) 217 H 264 H (75-99) mg/dL Calcium (8.4-10.2) mg/dL 04/02/20 04/02/20 04/02/20 Range/Units 05:48 07:24 11:33 RBC (3.80-5.40) m/uL Hgb (11.4-16.0) gm/dL Hct (34.0-46.0) % MCV (80.0-100.0) fL BUN 24 H (7-17) mg/dL Creatinine 1.47 H (0.52-1.04) mg/dL Glucose 120 H (74-99) mg/dL POC Glucose (mg/dL) 129 H 198 H (75-99) mg/dL Calcium 8.2 L (8.4-10.2) mg/dL Microbiology - Last 24 Hours (Table) 03/27/20 10:07 Blood Culture - Final Blood No Growth after 144 hours 03/27/20 10:07 Blood Culture - Final Blood No Growth after 144 hours 03/29/20 06:28 Blood Culture - Preliminary Blood No Growth after 96 hours 03/28/20 06:08 Blood Culture - Preliminary Blood No Growth after 120 hours
--- NOTE | 2020-04-02 16:31 | PN ---
PROGRESS NOTE DATE OF SERVICE: 04/02/2020 REASON FOR FOLLOW UP: Candidemia secondary to urinary source. INTERVAL HISTORY: The patient is currently afebrile. The patient is feeling better. Breathing comfortably. Patient denies having any chest pain. No shortness of breath or cough. No nausea, vomiting. No abdominal pain or diarrhea. Currently on room air. PHYSICAL EXAMINATION: Blood pressure 136/62, pulse of 63, temperature 98.2. She is 93% on room air. General description is an elderly female lying in bed in no distress. Respiratory system: Unlabored breathing, clear to auscultation anteriorly. Heart S1, S2. Regular rate and rhythm. Abdomen soft, no tenderness. LABS: Hemoglobin 9.8, white count 10.4, BUN of 24, creatinine 1.47. DIAGNOSTIC IMPRESSION AND PLAN: Patient with candidemia. Source is likely urinary in this patient who did have a complicated urinary tract infection requiring cystoscopy and ureteral stent placement. Follow-up blood culture negative. No evidence of infection. Patient with problem and evidence of . She will continue with Eraxis for another 2 weeks and close outpatient followup. MMODL / IJN: [id number] /
[2020-04-02 17:02] LABS: Glucose,Whole Blood 213 mg/dL (75-99)
[2020-04-02 20:49] LABS: Glucose,Whole Blood 225 mg/dL (75-99)
[2020-04-02] MEDS ORDERED: INSULIN DETEMIR (LEVEMIR) 100 UNIT/ML SYR SQ SCH (21:00)
[2020-04-02] MEDS: QUEtiapine 50 MG TAB PO SCH (21:09)
[2020-04-02] MEDS: ATORVASTATIN 40 MG TAB PO SCH (21:09)
[2020-04-03 02:07] LABS: Glucose,Whole Blood 162 mg/dL (75-99)
[2020-04-03 05:02] LABS: HCT 28.9 % (34.0-46.0); Hypochromasia Slight; MCH 30.5 pg (25.0-35.0); MCV 98.3 fL (80.0-100.0); Mean Platelet Volume 7.7; Platelet Count 397 k/uL (150-450); RBC 2.94 m/uL (3.80-5.40); RDW 14.6 % (11.5-15.5)
[2020-04-03 06:58] LABS: Glucose,Whole Blood 151 mg/dL (75-99)
[2020-04-03 07:53] VITALS: BP 123/71; PULSE 66; RESP 17; TEMP 99
[2020-04-03] MEDS: INSULIN ASPART (NovoLOG) 100 UNIT/ML VIAL SQ SCH ×4 (08:13→14:17)
[2020-04-03] MEDS: ASPIRIN 81 MG PO SCH (08:13)
[2020-04-03] MEDS: HEPARIN SODIUM,PORCINE 5,000 UNIT/ML 1 ML VIAL SQ SCH (08:13)
[2020-04-03] MEDS: LACTOBACILLUS ACIDOPH & BULGAR 1 EACH PACKET PO SCH (08:14)
[2020-04-03] MEDS: CLOPIDOGREL 75 MG TAB PO SCH (08:14)
[2020-04-03] MEDS: atenoloL 25 MG TAB PO SCH (08:15)
[2020-04-03] MEDS: ANIDULAFUNGIN 100 MG in SODIUM CHLORIDE 0.9% 100 ML IVPB SCH (09:58)
[2020-04-03 10:06] LABS: African American GFR (CKD) 43.7 (60.0-200.0); Albumin 3.4 g/dL (3.80-4.90); Albumin/Globulin Ratio 1.13 (1.60-3.17); Anion Gap 9.7 mmol/L (4.00-12.00); BUN/Creat Ratio 12.14 Ratio (12.00-20.00); Calcium 8.3 mg/dL (8.7-10.3); Carbon Dioxide 26.3 mmol/L (21.6-31.8); Magnesium 1.6 mg/dL (1.5-2.4); Non-African American GFR(CKD) 37.7 (60.0-200.0); Potassium 4.2 mmol/L (3.5-5.5); Total Bilirubin 0.4 mg/dL (0.3-1.2); Total Protein 6.4 g/dL (6.2-8.2)
[2020-04-03] MEDS ORDERED: FUROSEMIDE 10 MG/ML 4 ML VIAL IV STA (10:43)
--- NOTE | 2020-04-03 10:59 | P.DS ---
Providers Date of admission: 03/23/20 01:47 Expected date of discharge: 04/03/20 Attending physician: Rosio Ashraf MD Consults: 03/23/20 06:16 Consult Physician Routine Consulting Provider: Macario Camp Consult Reason/Comments: hydronephrosis Do you want consulting provider notified?: Yes 03/23/20 11:12 Consult Physician Routine Consulting Provider: Mannie Riley Consult Reason/Comments: acute renal failure Do you want consulting provider notified?: Yes 03/23/20 12:39 Consult Physician Stat Consulting Provider: Cassi Burgess Consult Reason/Comments: dyspnea Do you want consulting provider notified?: Yes 03/24/20 12:54 Consult Physician Stat Consulting Provider: Manuel Cifuentes Consult Reason/Comments: candidemia, sepsis Do you want consulting provider notified?: Yes 03/28/20 09:24 Consult Physician Routine Consulting Provider: Aldair Diop Consult Reason/Comments: suspected psychosis Do you want consulting provider notified?: Yes Primary care physician: Jammie Lilly DO Hospital Course: Patient is a 69-year-old female with atrial fibrillation, kidney stones, and prior CVA who presented initially to [facility] with complaints of generalized weakness. She was subsequently transferred here. On arrival to the emergency department at [facility] she was satting 97% on 5 L nasal cannula. Initial laboratory analysis was remarkable for a d-dimer of 4.5, hemoglobin 10.1, carbon dioxide 16, BUN 50, creatinine 3.39, magnesium 1.4, troponin 0.037, BNP 6460. Chest x-ray showed pulmonary infiltrates consistent with primary fibrosis. She was admitted for possible pulmonary embolism versus non-STEMI. She was started on a heparin drip, aspirin, and statin. CT angios was not performed secondary to acute kidney injury. Venous Doppler was negative for DVT. VQ scan showed low probability for pulmonary emboli. Echocardiogram showed an ejection fraction of 50-55% with grade 1 diastolic dysfunction. Nephrology was consulted and recommended continuing normal saline, adding sodium bicarb, checking urinalysis and renal ultrasound. Renal ultrasound demonstrated mild right-sided hydronephrosis with small nephrolithiasis. Urology was consulted and reviewed her computed tomography scan from [facility] demonstrating a 3.5 x 4.5 calculus fragment in the right proximal ureter with mild to moderate hydronephrosis at that point in time and did not recommend placement of a double-J stent. She seen by cardiology for elevated troponins which normalized by the second set of troponins. She was seen by pulmonary who recommended weaning down her FiO2 as tolerated, continue gentle hydration, and discontinuation of IV heparin as there is no indication for pulmonary embolism and troponin normalized. She underwent a CT abdomen and pelvis here which was nonobstructing calculus at the right ureteropelvic junction with right-sided hydronephrosis. Overnight on 03/23 the patient had worsening tachypnea and hypoxia, critical care was contacted and the patient was moved to the ICU. Her blood cultures came back with Daylin. She was started on Eraxis. Infectious disease was consulted who recommended placement of double-J stent for drainage. On 03/25 she underwent cystoscopy with placement of right double-J catheter she tolerated the procedure well. Urine cultures demonstrated Group D enterococcus and Unasyn was continued. Chest x-ray did show some pulmonary edema and she was started on Lasix. On the morning of 03/28 she had increasing confusion and disorientation. She subsequently underwent MRI of the brain which showed a left jugulodigastric mass 2.[address] of the neck with contrast. 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 She was also seen by psychiatry, she had been off of her Seroquel since admission and this was restarted at 50 mg twice daily, this was then decreased. Her blood cultures from 03/27 remained negative for 144 hours. Her oxygen requirements were slowly decreasing. She had a PICC line placed for 2 weeks of caspofungin. Patient was seen and examined. No acute events overnight. Patient reports no symptoms. Able to ambulate to the bathroom and with physical therapy without difficulties. She denies any abdominal pain. She denies any chest pain, shortness breath or palpitations. States that she is comfortable going home and following up in clinic for IV antifungals. General: non toxic, no distress, appears at stated age Derm: warm, dry Head: atraumatic, normocephalic, symmetric Eyes: EOMI, no lid lag, anicteric sclera Mouth: no lip lesion, mucus membranes moist Cardiovascular: S1S2 reg, no murmur, positive posterior tibial pulse bilateral, Lungs: CTA bilateral, mild rales at the bases , no accessory muscle use Abdominal: soft, nontender to palpation, no guarding, no appreciable organomegaly Ext: no gross muscle atrophy, no edema, no contractures Neuro: CN II-XI grossly intact, no focal neuro deficits Psych: Alert, oriented, flat affect Candidemia - ID recs: PICC line in place, Caspofungin 2-4 weeks total Enterococcus urinary tract infection, complicated status post placement of double-J ureteral stent -Urology recommendations appreciated, will need to have cysto and lithotripsy but will be deferred at least 3 weeks secondary to candidemia -Completed unasyn X 10 days Acute hypoxic respiratory failure secondary likely secondary to acute lung injury -Pulmonary recommendations -Wean O2 as able -One dose Lasix 40 mg IV today followed by Lasix 20 mg by mouth BID for 7 days. Chronic kidney disease stage III secondary to diabetes -Outpatient follow-up -Nephrology recommendations appreciated: f/u outpatient in 1-2 weeks Diabetes mellitus type 2 - Long-acting, fixed dose, and sliding scale insulin - Cut her home dose of insulin to 18 units long acting along with 6 units with meals TID - A1c 9.5 Hypertension, controlled -Atenolol -Follow blood pressures Anemia, present at baseline -Follow CBC, currently stable, further workup as outpatient Left neck mass - May need CT of neck with contrast to rule out infectious etiology, however states not new finding and related to prior surgery, with clearing fungemia doubt clincally significant - D/W nephro will hold off on CT as report known and hx, and blood cultures did clear. Chronic conditions: Atrial fibrillation History of CVA Hypomagnesemia, resolved Hypokalemia, resolved Acute kidney injury secondary to ATN, resolved Metabolic acidosis, resolved Right-sided hydronephrosis, resolved Toxic metabolic encephalopathy, resolved Obstructive uropathy, resolved s/p urethral stent placement Plans for DC home today with home health. Will need to follow up with ID in clinic for 2 weeks of IV antifungals. Patient verbalized understanding of the plan. This complex DC took about 45 minutes to complete. Pertinent Studies: Chest x-ray, venous Doppler, VQ scan, echocardiogram, kidney bladder ultrasound, CT abdomen and pelvis, brain MRI Procedures: PICC line, cystoscopy and placement of a right double-J catheter Patient Condition at Discharge: Stable Plan - Discharge Summary Discharge Rx Participant: No New Discharge Prescriptions: New Aspirin 81 mg PO DAILY #30 chew Atorvastatin [Lipitor] 40 mg PO HS #30 tab Clopidogrel [Plavix] 75 mg PO DAILY #30 tab QUEtiapine [SEROquel] 50 mg PO HS #30 tab Acetaminophen Tab [Tylenol] 650 mg PO Q6HR PRN tab PRN Reason: Fever And/ Or Pain Continue atenoloL [Tenormin] 25 mg PO BID Insulin Detemir (Levemir) [Levemir] 18 unit SQ HS #0 Changed INSULIN LISPRO (HumaLOG) [humaLOG] 6 units SQ PC-TID #0 Discontinued metFORMIN HCL 1,000 mg PO BID QUEtiapine [SEROquel] 25 mg PO HS Discharge Medication List atenoloL [Tenormin] 25 mg PO BID 04/13/15 [History] Acetaminophen Tab [Tylenol] 650 mg PO Q6HR PRN tab 04/03/20 [Rx] Aspirin 81 mg PO DAILY #30 chew 04/03/20 [Rx] Atorvastatin [Lipitor] 40 mg PO HS #30 tab 04/03/20 [Rx] Clopidogrel [Plavix] 75 mg PO DAILY #30 tab 04/03/20 [Rx] INSULIN LISPRO (HumaLOG) [humaLOG] 6 units SQ PC-TID #0 04/03/20 [Rx] Insulin Detemir (Levemir) [Levemir] 18 unit SQ HS #0 04/03/20 [Rx] QUEtiapine [SEROquel] 50 mg PO HS #30 tab 04/03/20 [Rx] Follow up Appointment(s)/Referral(s): Bill Erickson MD [STAFF PHYSICIAN] - 1 Week Sigrid Florian MD [STAFF PHYSICIAN] - 2 Weeks [facility] [NON-STAFF] - Macario Camp MD [STAFF PHYSICIAN] - 3 Weeks Jammie Lilly DO [Primary Care Provider] - 1-2 days Activity/Diet/Wound Care/Special Instructions: Diet: Diabetic cardiac Follow-up PCP within 2 days of discharge. He will need to complete a course of IV antifungals. Follow-up with infectious disease as instructed to complete her full course of IV antifungals. Follow-up with cardiology within 1 week. Follow-up with nephrology within 1 week. Follow-up with urology within 1 week. Take all medications as advised. Discharge Disposition: HOME WITH HOME HEALTH SERVICES
[2020-04-03 11:36] LABS: Glucose,Whole Blood 175 mg/dL (75-99)
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
--- NOTE | 2020-04-03 12:44 | P.PN ---
Subjective patient is seen in follow for acute kidney injury. Renal function continues to improve. Good urine output. No edema. blood pressure stable. No active complaints. Vital signs are stable. General: The patient appeared well nourished and normally developed. HEENT: Head exam is unremarkable. Neck is without jugular venous distension. LUNGS: Lungs are clear to auscultation and percussion. Breath sounds decreased. HEART: Rate and Rhythm are regular. First and second heart sounds normal. No murmurs, rubs or gallops. ABDOMEN: Abdominal exam reveals normal bowel sounds. Non-tender and non- distended. No evidence of peritonitis. EXTREMITITES: No clubbing, cyanosis, or edema. Objective - Vital Signs Vital signs: Vital Signs Temp 99.0 F 04/03/20 07:00 Pulse 66 04/03/20 08:00 Resp 17 04/03/20 08:00 BP 123/71 04/03/20 07:00 Pulse Ox 92 L 04/03/20 07:00 Intake & Output 04/02/20 04/03/20 04/03/20 18:59 06:59 18:59 Intake Total 200 Balance 200 Intake: Oral 200 Other: Voiding Method Toilet Toilet Toilet Bedside Commode Bedside Commode Bedside Commode # Voids 3 1 - Labs CBC & Chem 7: 04/03/20 04:22 04/03/20 04:22 Labs: Abnormal Lab Results - Last 24 Hours (Table) 04/02/20 04/02/20 04/03/20 Range/Units 16:58 20:46 02:03 WBC (3.8-10.6) k/uL RBC (3.80-5.40) m/uL Hgb (11.4-16.0) gm/dL Hct (34.0-46.0) % Est GFR (CKD-EPI)AfAm (60.0-200.0) Est GFR (CKD-EPI)NonAf (60.0-200.0) Glucose (70-110) mg/dL POC Glucose (mg/dL) 213 H 225 H 162 H (75-99) mg/dL Calcium (8.7-10.3) mg/dL Albumin (3.80-4.90) g/dL Albumin/Globulin Ratio (1.60-3.17) g/dL 0904/03/20 04/03/20 Range/Units 04:22 04:22 06:57 WBC 13.0 H (3.8-10.6) k/uL RBC 2.94 L (3.80-5.40) m/uL Hgb 9.0 L (11.4-16.0) gm/dL Hct 28.9 L (34.0-46.0) % Est GFR (CKD-EPI)AfAm 43.7 L (60.0-200.0) Est GFR (CKD-EPI)NonAf 37.7 L (60.0-200.0) Glucose 140 H (70-110) mg/dL POC Glucose (mg/dL) 151 H (75-99) mg/dL Calcium 8.3 L (8.7-10.3) mg/dL Albumin 3.40 L (3.80-4.90) g/dL Albumin/Globulin Ratio 1.13 L (1.60-3.17) g/dL 04/03/20 Range/Units 11:35 WBC (3.8-10.6) k/uL RBC (3.80-5.40) m/uL Hgb (11.4-16.0) gm/dL Hct (34.0-46.0) % Est GFR (CKD-EPI)AfAm (60.0-200.0) Est GFR (CKD-EPI)NonAf (60.0-200.0) Glucose (70-110) mg/dL POC Glucose (mg/dL) 175 H (75-99) mg/dL Calcium (8.7-10.3) mg/dL Albumin (3.80-4.90) g/dL Albumin/Globulin Ratio (1.60-3.17) g/dL Microbiology - Last 24 Hours (Table) 03/29/20 06:28 Blood Culture - Preliminary Blood No Growth after 120 hours 03/28/20 06:08 Blood Culture - Final Blood No Growth after 144 hours 03/27/20 10:07 Blood Culture - Final Blood No Growth after 144 hours 03/27/20 10:07 Blood Culture - Final Blood No Growth after 144 hours Assessment and Plan Plan: Assessment: 1. Acute kidney injury secondary to ATN secondary to hypotension and nonsteroidals. also component of obstructive uropathy. Noted to have right- sided hydronephrosis on CAT scan. creatinine down to 1.4 today. 2. Chronic kidney disease stage III secondary to diabetic kidney disease with baseline creatinine 1.1-1.2 from August 2019. 3. Metabolic acidosis secondary to acute kidney injury and GI losses. Was also on metformin outpatient. partially compensatory for respiratory alkalosis. resolved. 4. Insulin-dependent diabetes mellitus. 5. Status post fall. 6. Right-sided hydronephrosis. s/p cystoscopy with stent placement on March 25. 7. UTI with urine culture positive for group D enterococcus s/p antibiotics. 8. Fungemia maintained on antifungal. Plan: encouraged oral intake. Avoid nephrotoxins. Continue to monitor renal function and urine output. anticipate discharge soon. Follow up outpatient in 1-2 weeks.
--- NOTE | 2020-04-03 14:01 | PN ---
PROGRESS NOTE DATE OF SERVICE: 04/03/2020 REASON FOR FOLLOWUP: Candidiasis, source is urinary. INTERVAL HISTORY: Patient is currently afebrile. The patient is breathing comfortably. Denies having any chest pain. No shortness of breath, no cough. No nausea, no vomiting. No abdominal pain or diarrhea. PHYSICAL EXAMINATION: Blood pressure 133/70 with a pulse of 66, temperature 99. General description is an elderly female up in the room in no distress. RESPIRATORY SYSTEM: Unlabored breathing, decreased breath sounds at bases, no wheeze. HEART: S1, S2. Regular rate and rhythm. ABDOMEN: Soft, no tenderness. LABS: Hemoglobin is 9, white count of 13, BUN of 17, creatinine 1.4. DIAGNOSTIC IMPRESSION AND PLAN: Patient with candidemia, source likely urinary. Had complicated UTI requiring a ureteral stent placement. Blood culture repeat has been negative. The patient on Eraxis, will switch her over to caspofungin, continue for 2-3 weeks and close outpatient followup. MMODL / IJN: [id number] /
== END 2020-04-03 14:30 | disposition home health service (06) | DRG 853 ==
LOC: EC 23:45 → 3SCARD 03-23 01:47 → 2SICU 03-23 23:59 → 4SSUR 04-02 01:47
PROVIDERS: ADMIT Internal Medicine; ATTEND Internal Medicine
PROC: 0TJB8ZZ Inspection of Bladder, Via Natural or Artificial Opening Endoscopic (ICD-10-PCS; principal; 2020-03-25 09:00)
PROC: 0T768DZ Dilation of Right Ureter with Intraluminal Device, Via Natural or Artificial Opening Endoscopic (ICD-10-PCS; principal; 2020-03-25 09:00)
PROC: 02HV33Z Insertion of Infusion Device into Superior Vena Cava, Percutaneous Approach (ICD-10-PCS; 2020-03-30)
DX: B37.7 Candidal sepsis (principal); N17.0 Acute kidney failure with tubular necrosis; G92 Toxic encephalopathy; J96.01 Acute respiratory failure with hypoxia; R65.21 Severe sepsis with septic shock; E87.4 Mixed disorder of acid-base balance; J81.1 Chronic pulmonary edema; N13.6 Pyonephrosis; B95.2 Enterococcus as the cause of diseases classified elsewhere; E11.22 Type 2 diabetes mellitus with diabetic chronic kidney disease; N18.3 Chronic kidney disease, stage 3 (moderate); D63.1 Anemia in chronic kidney disease; Z79.4 Long term (current) use of insulin; E11.51 Type 2 diabetes mellitus with diabetic peripheral angiopathy without gangrene; E78.5 Hyperlipidemia, unspecified; E83.42 Hypomagnesemia; E87.6 Hypokalemia; F41.9 Anxiety disorder, unspecified; F60.0 Paranoid personality disorder; I13.10 Hypertensive heart and chronic kidney disease without heart failure, with stage 1 through stage 4 chronic kidney disease, or unspecified chronic kidney disease; I48.0 Paroxysmal atrial fibrillation; J44.9 Chronic obstructive pulmonary disease, unspecified; J84.10 Pulmonary fibrosis, unspecified; T39.395A Adverse effect of other nonsteroidal anti-inflammatory drugs [NSAID], initial encounter; Z20.828 Contact with and (suspected) exposure to other viral communicable diseases; Z91.81 History of falling; R79.89 Other specified abnormal findings of blood chemistry; I34.0 Nonrheumatic mitral (valve) insufficiency; Z79.02 Long term (current) use of antithrombotics/antiplatelets; Z79.82 Long term (current) use of aspirin; Z79.899 Other long term (current) drug therapy; Z86.73 Personal history of transient ischemic attack (TIA), and cerebral infarction without residual deficits; Z87.01 Personal history of pneumonia (recurrent); Z87.442 Personal history of urinary calculi; Z90.710 Acquired absence of both cervix and uterus; Z90.89 Acquired absence of other organs; Z98.51 Tubal ligation status; Z88.2 Allergy status to sulfonamides; Z91.5 Personal history of self-harm
CPT/HCPCS: 36415; 36573; 36600; 70553; 71045; 71046; 74176; 76770; 78582; 80048; 80053; 80061; 81001; 82550; 82805; 83036; 83605; 83735; 83880; 84100; 84132; 84145; 84484; 85025; 85027; 85379; 85610; 85730; 87040; 87077; 87086; 87186; 93005; 93306; 93970; 94640; 94760; 96365; 96366; 96368; 96372; 96375; 96376; 99291

== ENCOUNTER → 2021-03-13 | Outpatient (CLI) | payer MEDICARE ==
[2021-03-13 11:19] LABS: Basophils # (A) 0.1 k/uL (0-0.2); Basophils % (A) 1 %; Eosinophils # (A) 0.3 k/uL (0-0.7); Eosinophils % (A) 4 %; HCT 41.4 % (34.0-46.0); HGB 13.9 gm/dL (11.4-16.0); Lymphocytes # (A) 1.6 k/uL (1.0-4.8); Lymphocytes % (A) 23 %; MCHC 33.7 g/dL (31.0-37.0); Macrocytosis Slight; Mean Platelet Volume 7.2; Monocytes # (A) 0.4 k/uL (0-1.0); Monocytes % (A) 6 %; Neutrophils # (A) 4.5 k/uL (1.3-7.7); Neutrophils % (A) 65 %; Platelet Count 327 k/uL (150-450); WBC 6.9 k/uL (3.8-10.6)
[2021-03-13 11:34] LABS: Appearance,Urine Clear (Clear); Bilirubin,Urine Negative (Negative); Blood,Urine Negative (Negative); Color,Urine Light Yellow; Glucose,Urine (UA) 2+ (Negative); Ketones,Urine Negative (Negative); Leukocyte Esterase,Urine Negative (Negative); Mucus,Urine Rare /hpf; Nitrite,Urine Negative (Negative); Protein,Urine 1+ (Negative); RBC,Urine 3 /hpf (0-5); Specific Gravity,Urine 1.016 (1.001-1.035); Squamous Epithelial Cell,Urine <1 /hpf (0-4); Urobilinogen,Urine <2.0 mg/dL (<2.0); WBC,Urine 6 /hpf (0-5)
[2021-03-13 11:46] LABS: Calcium 9.3 mg/dL (8.4-10.2); Potassium 4.8 mmol/L (3.5-5.1)
== END | disposition home or self-care (01) ==
LOC: LABPAT 10:38
PROVIDERS: ATTEND Urology
DX: Z01.812 Encounter for preprocedural laboratory examination (principal); N20.1 Calculus of ureter; R31.29 Other microscopic hematuria
CPT/HCPCS: 80048; 81001; 85025; 87086

== ENCOUNTER 2021-03-15 10:45 | Day surgery (SDC) | payer MEDICARE ==
[2021-03-12 10:21] VITALS: BMI 27.2
[~2021-03-15 10:45] MED LIST: CIPROFLOXACIN/DEXTROSE PMX 400 MG in DEXTROSE/WATER 1 200ML.BAG IVPB PRN; DEXAMETHASONE SOD PHOSPHATE 4 MG/ML 1 ML VIAL IV ONE; HYDROmorphone 0.5 MG/0.5 ML SYRINGE IVP PRN; LACTATED RINGERS 1,000 ML IV SCH; LIDOCAINE 1% (10MG/ML) FOR IV START INTRADERMA PRN; MIDAZOLAM 2 MG/2 ML VIAL IV PRN; ONDANSETRON 4 MG/2 ML VIAL IVP ONE; fentaNYL (PF) 50 MCG/ML 2 ML AMP IV PRN
--- NOTE | 2021-03-15 11:47 | XR ---
EXAMINATION TYPE: XR KUB DATE OF EXAM: 03/15/2021 COMPARISON: 05/16/2015 HISTORY: Kidney stones TECHNIQUE: AP pelvis supine view FINDINGS: Some faint calcification is near the expected left renal pelvis. There is a calcification i n the left hemipelvis measuring 0.7 x 0.3 cm. This may have been present previously. Psoas margins are normal. Organomegaly is not evident. Normal bowel gas is present. IMPRESSION: 1. Faint calcification in the right renal pelvic region. 2. Stable calcification inferior left hemipelvis.
[2021-03-15 11:48] LABS: Glucose,Whole Blood 228 mg/dL (75-99)
--- NOTE | 2021-03-15 12:31 | P.HPIHPCON ---
History of Present Illness H&P Date: 03/15/21 This is 70-year-old female history of a 7 mm left-sided distal stone, she symptomatic from her stone. She underwent a CT scan at [facility] that showed a 7 mm distal stone, 2 nonobstructive renal stone. Discussed with her given her symptoms and multiple stone the option of doing ureteroscopy. Discussed with her the risk which includes but not limited to bleeding, infection, injury to the ureter, risk from anesthesia. She understood all the risk and agree to proceed with left-sided ureteroscopy, with holmium laser lithotripsy, stone basketing and stent insertion Consent for Procedure: I have explained the operation/procedure to the patient, including the risks, benefits, side effects, alternative therapies (including not receiving the proposed treatment or service), the likelihood of the patient achieving his/her goals, and potential recuperation problems for the procedure/sedation/analgesia, as well as any blood products, if indicated. I also explained to the patient the risks, benefits and side effects of the alternatives, as well as the risks related to not receiving the proposed procedure, care, treatment, or services. Past Medical History Past Medical History: Atrial Fibrillation, Asthma, CVA/TIA, Diabetes Mellitus, Hyperlipidemia, Pulmonary Embolus (PE), Renal Disease Additional Past Medical History / Comment(s): vaginal dysplasia ,carotid artery blockage, kidney stones, stage 3 kidney disease,. pt states had covid 2019 History of Any Multi-Drug Resistant Organisms: None Reported Past Surgical History: Cholecystectomy, Tonsillectomy, Tubal Ligation, Ventriculoperitoneal Shunt Additional Past Surgical History / Comment(s): lithotripsy, elmer cataract surgery, eyelid issues, uterine laser ablation with 3 months interferon Past Anesthesia/Blood Transfusion Reactions: Previous Problems w/ Anesthesia Additional Past Anesthesia/Blood Transfusion Reaction / Comment(s): takes longer time to wake up after anesthesia. request not to be yelled at to wake up Smoking Status: Never smoker - Past Family History Sister(s) Family Medical History: Cancer Additional Family Medical History / Comment(s): lung spread to brain Father History Unknown: Yes Medications and Allergies Home Medications Medication Instructions Recorded Confirmed Type atenoloL [Tenormin] 25 mg PO BID 04/13/15 03/15/21 History Acetaminophen Tab [Tylenol] 650 mg PO Q6HR PRN tab 04/03/20 03/15/21 Rx Aspirin 81 mg PO DAILY #30 chew 04/03/20 03/15/21 Rx Atorvastatin [Lipitor] 40 mg PO HS #30 tab 04/03/20 03/15/21 Rx QUEtiapine [SEROquel] 50 mg PO HS #30 tab 04/03/20 03/15/21 Rx Albuterol Inhaler [Ventolin Hfa 1 puff INHALATION DAILY PRN 03/12/21 03/15/21 History Inhaler] HYDROcodone/APAP 5-325MG [[place] 1 tab PO Q4HR PRN 03/12/21 03/15/21 History 5-325] Ibuprofen 400 mg PO DAILY PRN 03/12/21 03/15/21 History Insulin Detemir (Levemir) [Levemir] 42 unit SQ DAILY 03/12/21 03/15/21 History Insulin Detemir (Levemir) [Levemir] 44 unit SQ HS 03/12/21 03/15/21 History Allergies Allergy/AdvReac Type Severity Reaction Status Date / Time latex Allergy Rash/Hives Verified 03/15/21 11:31 Sulfa (Sulfonamide Allergy Rash/Hives Verified 03/15/21 11:31 Antibiotics) Surgical - Exam Vital Signs Temp Pulse Resp BP Pulse Ox 97.6 F 68 18 161/71 97 03/15/21 11:24 03/15/21 11:24 03/15/21 11:24 03/15/21 11:24 03/15/21 11:24 - General no distress, moderate pain - ENT normal nares, normal mucosa - Respiratory normal expansion, normal respiratory effort - Abdomen Abdomen: soft, non tender - Psychiatric oriented to time, oriented to person, oriented to place Results - Labs Abnormal Lab Results - Last 24 Hours (Table) 03/15/21 Range/Units 11:45 POC Glucose (mg/dL) 228 H (75-99) mg/dL Assessment and Plan Assessment: OR for left-sided ureteroscopy, holmium laser lithotripsy, stone basketing and stent insertion
[2021-03-15 13:37] LABS: Glucose,Whole Blood 222 mg/dL (75-99)
[2021-03-15] MEDS ORDERED: fentaNYL (PF) 50 MCG/ML 2 ML AMP ONE (13:46)
[2021-03-15] MEDS ORDERED: LIDOCAINE 1% INJ 10MG/ML (20 ML MDV) ONE (13:46)
[2021-03-15] MEDS ORDERED: MIDAZOLAM 2 MG/2 ML VIAL ONE (13:46)
[2021-03-15] MEDS ORDERED: PHENYLEPHRINE-0.9% NACL SYG 1,000 MCG/10 ML SYRINGE ONE (13:46)
[2021-03-15] MEDS ORDERED: SUCCINYLCHOLINE CHLORIDE 100 MG/5 ML SYR IV ONE (13:46)
[2021-03-15] MEDS ORDERED: PROPOFOL 10 MG/ML 20 ML VIAL IV ONE (13:46)
[2021-03-15] MEDS ORDERED: INSULIN ASPART (NovoLOG) 100 UNIT/ML VIAL SQ ONE (13:46)
[2021-03-15 14:47] VITALS: TEMP 97.9
--- NOTE | 2021-03-15 14:48 | P.OP ---
Date of Procedure: 03/15/21 Preoperative Diagnosis: Left ureteral, renal calculi Postoperative Diagnosis: Left renal calculi Procedure(s) Performed: Cystoscopy, left ureteroscopy, holmium laser lithotripsy, stone basketing, and retrograde pyelogram Implants: none Anesthesia: BOBBIA Surgeon: Lincoln Gaviria Estimated Blood Loss (ml): 1 Pathology: other (Left renal calculi) Condition: stable Disposition: PACU Indications for Procedure: This is 70-year-old female history of a 7 mm left-sided distal stone, she symptomatic from her stone. She underwent a CT scan at [facility] that showed a 7 mm left distal stone, and 2 nonobstructive renal stone. Discussed with her given her symptoms and multiple stone the option of doing ureteroscopy. Discussed with her the risk which includes but not limited to bleeding, infection, injury to the ureter, risk from anesthesia. She understood all the risk and agree to proceed with left-sided ureteroscopy, with holmium laser lithotripsy, stone basketing and stent insertion Operative Findings: Multiple renal calculi within the upper and mid calyx of left kidney, adherent to the parenchyma, additional calculi within the mid pole. No ureteral stone, ureter was dilated consistent with a recently passed stone Description of Procedure: Patient was brought to the operating room, general anesthesia was induced. He was prepped and draped in sterile fashion and placed in dorsal lithotomy position. Cystoscopy fitted with a 21-[place]or[place] sheath was inserted per urethra, cystoscopy was performed which showed no abnormality within the bladder. Attention was then carried to the left ureteral orifice. The cystoscope was withdrawn and a semirigid ureteroscope was inserted and advanced up the left ureteral orifice, ureteroscopy was performed which showed no evidence of stone in the ureter, there was ureteral dilation consistent with a recently passed stone. Pullback ureteroscopy was performed which showed no injury to the ureter or any ureteral stone, as ureter was withdrawn and a sensor wire was advanced through. Next an 1113 [place] access sheath was passed over the wire and into the proximal ureter. Next a flexible ureteroscope was inserted, renoscopy was performed which showed in upper and mid pole mutiple small calculi adherent to the renal parenchyma, this stones were fragmented using the laser. An additional fstone was seen in the midpole that was basketed using the stone basket and sent for analysis. Repeat renoscopy showed no additional stones within the kidney or injury to the kidney. Retrograde pyelogram was performed to ensure all calyces were evaluated. Pullback ureteroscopy was performed which showed no injury to the ureter or any ureteral stones. The bladder was emptied at the end of the case. Patient tolerated the procedure well was taken to PACU in stable condition
[2021-03-15] MEDS ORDERED: LACTATED RINGERS 1,000 ML IV ONE (14:50)
--- NOTE | 2021-03-15 14:52 | FL ---
Fluoroscopy INDICATION: Pain FINDINGS: Fluoroscopy time: 10.6 seconds. Images obtained: 6. IMPRESSIONS: 1. Documentation of fluoroscopy.
[2021-03-15 15:33] VITALS: RESP 16
[2021-03-15 15:41] LABS: Glucose,Whole Blood 229 mg/dL (75-99)
[2021-03-15] MEDS ORDERED: HYDROmorphone 0.5 MG/0.5 ML SYRINGE IVP ONE (16:33)
[2021-03-15 18:04] VITALS: BP 149/71; PULSE 69
== END 2021-03-15 17:18 | disposition home or self-care (01) ==
LOC: OR 10:45
PROVIDERS: ATTEND Urology
DX: N20.0 Calculus of kidney (principal); E78.5 Hyperlipidemia, unspecified; I48.91 Unspecified atrial fibrillation; J45.909 Unspecified asthma, uncomplicated; I73.9 Peripheral vascular disease, unspecified; E11.22 Type 2 diabetes mellitus with diabetic chronic kidney disease; I12.9 Hypertensive chronic kidney disease with stage 1 through stage 4 chronic kidney disease, or unspecified chronic kidney disease; N18.30 Chronic kidney disease, stage 3 unspecified; Z79.82 Long term (current) use of aspirin; Z79.899 Other long term (current) drug therapy; Z79.4 Long term (current) use of insulin; Z90.49 Acquired absence of other specified parts of digestive tract; Z86.711 Personal history of pulmonary embolism; Z90.710 Acquired absence of both cervix and uterus; Z88.2 Allergy status to sulfonamides; Z91.040 Latex allergy status
CPT/HCPCS: 52353; 82365; 74420; 74018; C1769; J2250; J1100; J2405; J2001; J3010; J0744; J2370; J0330; J2704; J1170

== ENCOUNTER 2024-01-09 03:42 | Inpatient (IN) | payer MEDICARE ==
[2024-01-09] MEDS: HEPARIN SODIUM 1,000 UN/ML (10ML VL) IV ONE (04:13)
[2024-01-09] MEDS: HEPARIN SOD,PORK IN 0.45% NACL 25,000 UNIT in 0.45% NACL 1 250ML.BAG IV SCH (04:13)
[2024-01-09] MEDS: MORPHINE SULFATE 4 MG/ML SYRINGE IVP STA (04:27)
[2024-01-09] MEDS: NITROGLYCERIN SL TABS 0.4 MG TAB SUBLINGUAL STA (04:27)
[2024-01-09 04:33] LABS: Basophils # (A) 0.1 k/uL (0-0.2); Basophils % (A) 1 %; Eosinophils # (A) 0.2 k/uL (0-0.7); Eosinophils % (A) 3 %; HCT 42.4 % (34.0-46.0); HGB 13.5 gm/dL (11.4-16.0); Lymphocytes # (A) 1.7 k/uL (1.0-4.8); Lymphocytes % (A) 22 %; MCH 32.4 pg (25.0-35.0); MCHC 31.8 g/dL (31.0-37.0); MCV 101.6 fL (80.0-100.0); Macrocytosis Slight; Mean Platelet Volume 8.9; Monocytes # (A) 0.5 k/uL (0-1.0); Monocytes % (A) 6 %; Neutrophils # (A) 5.3 k/uL (1.3-7.7); Neutrophils % (A) 67 %; Platelet Count 261 k/uL (150-450); RBC 4.17 m/uL (3.80-5.40); RDW 14.5 % (11.5-15.5); WBC 7.9 k/uL (3.8-10.6)
[2024-01-09] MEDS: LORazepam 2 MG/ML INJ IV STA (05:12)
[2024-01-09 05:13] LABS: Prothrombin Time 10.9 sec (10.0-12.5)
[2024-01-09] MEDS: NITROGLYCERIN OINT 1 INCH/GM PACKET TOPICAL SCH (05:13)
--- NOTE | 2024-01-09 05:25 | ED ---
General Adult HPI - General Chief complaint: Chest Pain Stated complaint: Chest Pain Time Seen by Provider: 01/09/24 04:00 Source: patient, EMS, RN notes reviewed, old records reviewed Mode of arrival: EMS - History of Present Illness Initial comments: Patient is a 73-year-old female presents emergency department complaining of chest pain. Patient has a history of atrial fibrillation, asthma, diabetes, hyperlipidemia, hypertension, anxiety presented to [facility] yesterday evening complaining of chest pain. Describes it as a pressure sensation over the left side of her chest. No significant radiation. Thought it was just her asthma and she has been experiencing this on and off for multiple days but worsened today. Presented to the outside facility for further evaluation. Denies any history of CAD or stents. Workup there revealed a non-STEMI. Pain resolved with nitro and morphine. She still feels anxious. He is no longer on antianxiety medications. She was started on a heparin drip, given aspirin, and transferred here for further evaluation. Patient is feeling improved at this time but is still having mild chest pain. Only received 1 nitroglycerin tablet prior to arrival. Otherwise states she feels somewhat anxious but feels better than earlier. Presents for further evaluation. Denies current diaphoresis, nausea, vomiting. - Related Data Home Medications Medication Instructions Recorded Confirmed atenoloL [Tenormin] 25 mg PO BID 04/13/15 03/15/21 Albuterol Inhaler [Ventolin Hfa 1 puff INHALATION DAILY PRN 03/12/21 03/15/21 Inhaler] HYDROcodone/APAP 5-325MG [[place] 1 tab PO Q4HR PRN 03/12/21 03/15/21 5-325] Ibuprofen 400 mg PO DAILY PRN 03/12/21 03/15/21 Insulin Detemir (Levemir) [Levemir] 42 unit SQ DAILY 03/12/21 03/15/21 Insulin Detemir (Levemir) [Levemir] 44 unit SQ HS 03/12/21 03/15/21 Previous Rx's Medication Instructions Recorded Acetaminophen Tab [Tylenol] 650 mg PO Q6HR PRN tab 04/03/20 Aspirin 81 mg PO DAILY #30 chew 04/03/20 Atorvastatin [Lipitor] 40 mg PO HS #30 tab 04/03/20 QUEtiapine [SEROquel] 50 mg PO HS #30 tab 04/03/20 Cephalexin [Keflex] 500 mg PO Q8HR PRN #15 cap 03/15/21 Ibuprofen 400 mg PO Q8H PRN #8 tab 03/15/21 Allergies Allergy/AdvReac Type Severity Reaction Status Date / Time latex Allergy Rash/Hives Verified 01/09/24 03:52 Sulfa (Sulfonamide Allergy Rash/Hives Verified 01/09/24 03:52 Antibiotics) Review of Systems ROS Statement: Those systems with pertinent positive or pertinent negative responses have been documented in the HPI. Review of Systems: CONST: Denies fever EYES: Denies blurry vision ENT: Denies nasal congestion C/V: Endorses chest pain RESP: Denies shortness of breath GI: Denies abdominal pain : Denies dysuria SKIN: Denies rash. MSK: Denies joint pain. NEURO: Denies headache ROS Other: All systems not noted in ROS Statement are negative. Past Medical History Past Medical History: Atrial Fibrillation, Asthma, CVA/TIA, Diabetes Mellitus, Hyperlipidemia, Pulmonary Embolus (PE), Renal Disease Additional Past Medical History / Comment(s): vaginal dysplasia ,carotid artery blockage, kidney stones, stage 3 kidney disease,. pt states had covid 2019 History of Any Multi-Drug Resistant Organisms: None Reported Past Surgical History: Cholecystectomy, Tonsillectomy, Tubal Ligation, Ventricu loperitoneal Shunt Additional Past Surgical History / Comment(s): lithotripsy, elmer cataract surgery, eyelid issues, uterine laser ablation with 3 months interferon Past Anesthesia/Blood Transfusion Reactions: Previous Problems w/ Anesthesia Additional Past Anesthesia/Blood Transfusion Reaction / Comment(s): takes longer time to wake up after anesthesia. request not to be yelled at to wake up Past Psychological History: Anxiety, PTSD Smoking Status: Never smoker Past Alcohol Use History: None Reported Past Drug Use History: None Reported - Past Family History Sister(s) Family Medical History: Cancer Additional Family Medical History / Comment(s): lung spread to brain Father History Unknown: Yes General Exam - General Exam Comments Initial Comments: General: Appears anxious HEAD: Normal with no signs of head trauma. EYES: PERRLA, EOMI, conjunctiva normal, no discharge. ENT: Hearing grossly intact, normal oropharynx. RESPIRATORY: Clear breath sounds bilaterally. No wheezes, rales, or rhonchi. C/V: Regular rate and rhythm. S1 and S2 auscultated, no edema, peripheral pulses 2+ and intact throughout ABD: Abd is soft, nontender, nondistended EXT: Normal range of motion, no obvious deformity SKIN: No rashes or lesions observed on exposed skin. NEURO: Alert and oriented x 4. Course Vital Signs 01/09/24 01/09/24 01/09/24 03:48 04:00 05:00 Temperature 98.4 F Pulse Rate 92 86 85 Respiratory 22 22 20 Rate Blood Pressure 162/90 146/83 162/73 O2 Sat by Pulse 98 97 95 Oximetry 01/09/24 06:00 Temperature Pulse Rate 78 Respiratory 20 Rate Blood Pressure 132/67 O2 Sat by Pulse 94 L Oximetry Medical Decision Making - Medical Decision Making Was pt. sent in by a medical professional or institution (, PA, OIL FIELD CASER, urgent care, hospital, or intermediate...) When possible be specific @ -Transferred from [facility] for non-STEMI. Did you speak to anyone other than the patient for history (EMS, parent, family, police, friend...)? What history was obtained from this source @ -No Did you review nursing and triage notes (agree or disagree)? Why? @ -I reviewed and agree with nursing and triage notes Were old charts reviewed (outside hosp., previous admission, EMS record, old EKG, old radiological studies, urgent care reports/EKG's, intermediate records)? Report findings @ -Reviewed charts from [facility] occluding elevated high- sensitivity troponin, EKG showing no signs of acute ischemia. Chest x-ray obtained showed no obvious acute cardiopulmonary process. Differential Diagnosis (chest pain, altered mental status, abdominal pain women, abdominal pain men, vaginal bleeding, weakness, fever, dyspnea, syncope, h eadache, dizziness, GI bleed, back pain, seizure, CVA, palpatations, mental health, musculoskeletal)? @ -Differential Chest Pain: Stable Angina, Unstable Angina, STEMI, NSTEMI Aortic Dissection, Pneumothorax, Musculoskeletal, Esophageal Spasm GERD, Cholecystitis, Pancreatitis, Zoster, this is not meant to be an all-inclusive list. EKG interpreted by me (3pts min.). @ -As above X-rays interpreted by me (1pt min.). @ -None done CT interpreted by me (1pt min.). @ -None done U/S interpreted by me (1pt. min.). @ -None done What testing was considered but not performed or refused? (CT, X-rays, U/S, labs)? Why? @ -Consider chest x-ray but patient received this at the outside facility. Rosita ging uploaded. What meds were considered but not given or refused? Why? @ -Considered aspirin but patient received this at the outside facility. Did you discuss the management of the patient with other professionals (professionals i.e. , PA, OIL FIELD [employer]ER, lab, RT, psych nurse, social services aide, subgrade tester, teacher, tax revenue officer, home health care case manager)? Give summary @ -Spoke with Dr. Juarez of [facility] who accepted the admission. Was smoking cessation discussed for >3mins.? @ -No Was critical care preformed (if so, how long)? @ -Yes, 35 minutes. Were there social determinants of health that impacted care today? How? (Homelessness, low income, unemployed, alcoholism, drug addiction, transportation, low edu. Level, literacy, decrease access to med. care, senior living, rehab)? @ -No Was there de-escalation of care discussed even if they declined (Discuss DNR or withdrawal of care, Hospice)? DNR status @ -No What co-morbidities impacted this encounter? (DM, HTN, Smoking, COPD, CAD, Cancer, CVA, ARF, Chemo, Hep., AIDS, mental health diagnosis, sleep apnea, morbid obesity)? @ -None Was patient admitted / discharged? Hospital course, mention meds given and route, prescriptions, significant lab abnormalities, going to OR and other pertinent info. @ -Based on the patient's presentation and physical exam, presents with chest pain. Transferred for a non-STEMI. Currently still having mild chest pain. We will repeat labs, repeat EKG. Patient will be given nitroglycerin tablet as well as Nitropaste and morphine. States that this helped with her pain earlier. She was in agreement this plan. Vital signs within acceptable limits. Heparin restarted. Patient already received aspirin. EKG shows no signs of acute ischemia. Following medications, chest pain is resolved but she states she still feels anxious. This is a chronic issue for her. She will be given a dose of Ativan.Patient remains symptom-free at this time. Resting comfortably. She will be admitted. Repeat EKG shows no signs of acute ischemia. Patient's laboratory studies remarkable for CKD, elevated troponin level of 1.24. Patient is currently chest pain-free. EKG repeat shows no obvious acute ischemic findings. No dynamic changes. At this time patient will be admitted. She was in agreement this plan. Will continue with current therapy. I spoke with the admitting physician, Dr. Juarez of [facility] who accepted the adm ission. Cardiology consulted. Echo ordered. Undiagnosed new problem with uncertain prognosis? @ -No Drug Therapy requiring intensive monitoring for toxicity (Heparin, Nitro, Insulin, Cardizem)? @ -Heparin Were any procedures done? @ -No Diagnosis/symptom? @ -NSTEMI Acute, or Chronic, or Acute on Chronic? @ -Acute Uncomplicated (without systemic symptoms) or Complicated (systemic symptoms)? @ -Complicated Side effects of treatment? @ -No Exacerbation, Progression, or Severe Exacerbation? @ -No Poses a threat to life or bodily function? How? (Chest pain, USA, IA, pneumonia, PE, COPD, DKA, ARF, appy, cholecystitis, CVA, Diverticulitis, Homicidal, Suicidal, threat to staff... and all critical care pts) @ -Yes - Lab Data Result diagrams: 01/09/24 03:37 01/09/24 03:37 Lab Results 01/09/24 01/09/24 01/09/24 Range/Units 03:37 03:37 03:37 WBC 7.9 (3.8-10.6) k/uL RBC 4.17 (3.80-5.40) m/uL Hgb 13.5 (11.4-16.0) gm/dL Hct 42.4 (34.0-46.0) % MCV 101.6 H (80.0-100.0) fL MCH 32.4 (25.0-35.0) pg MCHC 31.8 (31.0-37.0) g/dL RDW 14.5 (11.5-15.5) % Plt Count 261 (150-450) k/uL MPV 8.9 Neutrophils % 67 % Lymphocytes % 22 % Monocytes % 6 % Eosinophils % 3 % Basophils % 1 % Neutrophils # 5.3 (1.3-7.7) k/uL Lymphocytes # 1.7 (1.0-4.8) k/uL Monocytes # 0.5 (0-1.0) k/uL Eosinophils # 0.2 (0-0.7) k/uL Basophils # 0.1 (0-0.2) k/uL Macrocytosis Slight PT 10.9 (10.0-12.5) sec INR 1.0 (<1.2) APTT 121.7 H* (22.0-30.0) sec Sodium 141 (137-145) mmol/L Potassium 4.0 (3.5-5.1) mmol/L Chloride 110 H (98-107) mmol/L Carbon Dioxide 12 L (22-30) mmol/L Anion Gap 19 mmol/L BUN 35 H (7-17) mg/dL Creatinine 1.66 H (0.52-1.04) mg/dL Est GFR (CKD-EPI)AfAm 35 (>60 ml/min/1.73 sqM) Est GFR (CKD-EPI)NonAf 30 (>60 ml/min/1.73 sqM) Glucose 382 H (74-99) mg/dL Calcium 8.4 (8.4-10.2) mg/dL Magnesium 2.0 (1.6-2.3) mg/dL Total Bilirubin 0.6 (0.2-1.3) mg/dL AST 26 (14-36) U/L ALT 11 (4-34) U/L Alkaline Phosphatase 136 H (38-126) U/L Troponin I (0.000-0.034) ng/mL Total Protein 6.8 (6.3-8.2) g/dL Albumin 4.2 (3.5-5.0) g/dL Lipase 369 H (23-300) U/L 01/09/24 Range/Units 03:37 WBC (3.8-10.6) k/uL RBC (3.80-5.40) m/uL Hgb (11.4-16.0) gm/dL Hct (34.0-46.0) % MCV (80.0-100.0) fL MCH (25.0-35.0) pg MCHC (31.0-37.0) g/dL RDW (11.5-15.5) % Plt Count (150-450) k/uL MPV Neutrophils % % Lymphocytes % % Monocytes % % Eosinophils % % Basophils % % Neutrophils # (1.3-7.7) k/uL Lymphocytes # (1.0-4.8) k/uL Monocytes # (0-1.0) k/uL Eosinophils # (0-0.7) k/uL Basophils # (0-0.2) k/uL Macrocytosis PT (10.0-12.5) sec INR (<1.2) APTT (22.0-30.0) sec Sodium (137-145) mmol/L Potassium (3.5-5.1) mmol/L Chloride (98-107) mmol/L Carbon Dioxide (22-30) mmol/L Anion Gap mmol/L BUN (7-17) mg/dL Creatinine (0.52-1.04) mg/dL Est GFR (CKD-EPI)AfAm (>60 ml/min/1.73 sqM) Est GFR (CKD-EPI)NonAf (>60 ml/min/1.73 sqM) Glucose (74-99) mg/dL Calcium (8.4-10.2) mg/dL Magnesium (1.6-2.3) mg/dL Total Bilirubin (0.2-1.3) mg/dL AST (14-36) U/L ALT (4-34) U/L Alkaline Phosphatase (38-126) U/L Troponin I 1.240 H* (0.000-0.034) ng/mL Total Protein (6.3-8.2) g/dL Albumin (3.5-5.0) g/dL Lipase (23-300) U/L - EKG Data -: EKG Interpreted by Me EKG Comments: 12-lead Electrocardiogram Interpretation Note EKG was reviewed and interpreted by myself. 12-lead ECG performed at 0403 is interpreted by me as revealing normal sinus rhythm at a rate of 84 beats per minute. [place] is normal. IN interval is 188 ms, QRS duration is 101 ms, QTc is 411 ms.. There were no ST or T wave abnormalities to suggest myocardial ischemia or injury. R wave progression across the precordium was satisfactory. By my interpretation this EKG is non-diagnostic for acute ischemia. 12-lead Electrocardiogram Interpretation Note EKG was reviewed and interpreted by myself. 12-lead ECG performed at 0545 is interpreted by me as revealing normal sinus rhythm at a rate of 81 beats per minute. [place] is normal. IN interval is 185 ms, QRS duration is 102 ms, QTc is 419 ms.. There were no ST or T wave abnormalities to suggest myocardial ischemia or injury. R wave progression across the precordium was satisfactory. By my interpretation this EKG is non-diagnostic for acute ischemia. No dynamic changes when compared with EKG from earlier today. Critical Care Time Critical Care Time: Yes Total Critical Care Time: 35 Disposition Clinical Impression: Acute non-ST elevation myocardial infarction (NSTEMI) Disposition: ADMITTED IP TO THIS HOSP Condition: Stable Time of Disposition: 05:45
[2024-01-09 05:30] LABS: Partial Thromboplastin Time 121.7 sec (22.0-30.0)
[2024-01-09 05:39] LABS: ALT 11 U/L (4-34); AST 26 U/L (14-36); African American GFR (CKD) 35 (>60 ml/min/1.73 sqM); Albumin 4.2 g/dL (3.5-5.0); Alkaline Phosphatase 136 U/L (38-126); Anion Gap 19 mmol/L; Blood Urea Nitrogen 35 mg/dL (7-17); Calcium 8.4 mg/dL (8.4-10.2); Carbon Dioxide 12 mmol/L (22-30); Chloride 110 mmol/L (98-107); Glucose 382 mg/dL (74-99); Lipase 369 U/L (23-300); Non-African American GFR(CKD) 30 (>60 ml/min/1.73 sqM); Sodium 141 mmol/L (137-145); Total Bilirubin 0.6 mg/dL (0.2-1.3); Total Protein 6.8 g/dL (6.3-8.2)
[2024-01-09] MEDS ORDERED: NALOXONE 0.4 MG/ML 1 ML VIAL IV PRN (05:45)
[2024-01-09] MEDS: SODIUM CHLORIDE 0.9% 1,000 ML IV SCH (06:07)
--- NOTE | 2024-01-09 08:40 | P.HPIM ---
History of Present Illness This is a pleasant 33 years old female with past medical history of multiple medical problems as below. She was transferred from [facility] for chest pain and diagnosed today with non-STEMI. Patient has been having breathing difficulty even with exertional thought This is related to her lung disease as she has a history of both asthma and COPD as she explains but she is not on home oxygen and she follow-up with video control operator but she could not remember his name But also patient was complaining from severe crushing chest pain about 10/10 when it started on the left side, nonradiating, no relieving or precipitating factors and no associated coughing. Her chest pain now feels mild after she received treatment in the emergency room Patient denies any other GI urinary symptoms, no headache dizziness weakness or numbness. She quit smoking about 15 years ago with no alcohol or illicit drugs. Vital stable CBC, INR unremarkable Creatinine 1.6 which is at baseline of 1.4-1.7 elevated. Glucose was elevated, Troponin are elevated 1.2 and 1.5 Lipase 369 EKG showing sinus rhythm at [address]-T changes Echocardiogram is ordered Review of Systems Review of systems CONSTITUTIONAL: No fever, no malaise, no fatigue. HEENT: No recent visual problems or hearing problems. Denied any sore throat. CARDIOVASCULAR: No orthopnea, PND, no palpitations, no syncope. PULMONARY: No shortness of breath, no cough, no hemoptysis. GASTROINTESTINAL: No diarrhea, no nausea, no vomiting, no abdominal pain. Normoactive bowel sounds. NEUROLOGICAL: No headaches, no weakness, no numbness. HEMATOLOGICAL: Denies any bleeding or petechiae. GENITOURINARY: Denies any burning micturition, frequency, or urgency. MUSCULOSKELETAL/RHEUMATOLOGICAL: Denies any joint pain, swelling, or any muscle pain. ENDOCRINE: Denies any polyuria or polydipsia. Past Medical History Past Medical History: Atrial Fibrillation, Asthma, CVA/TIA, Diabetes Mellitus, Hyperlipidemia, Pulmonary Embolus (PE), Renal Disease Additional Past Medical History / Comment(s): vaginal dysplasia ,carotid artery blockage, kidney stones, stage 3 kidney disease,. pt states had covid 2019 History of Any Multi-Drug Resistant Organisms: None Reported Past Surgical History: Cholecystectomy, Tonsillectomy, Tubal Ligation, Ventriculoperitoneal Shunt Additional Past Surgical History / Comment(s): lithotripsy, elmer cataract surgery, eyelid issues, uterine laser ablation with 3 months interferon Past Anesthesia/Blood Transfusion Reactions: Previous Problems w/ Anesthesia Additional Past Anesthesia/Blood Transfusion Reaction / Comment(s): takes longer time to wake up after anesthesia. request not to be yelled at to wake up Past Psychological History: Anxiety, PTSD Smoking Status: Never smoker Past Alcohol Use History: None Reported Past Drug Use History: None Reported - Past Family History Sister(s) Family Medical History: Cancer Additional Family Medical History / Comment(s): lung spread to brain Father History Unknown: Yes Medications and Allergies Home Medications Medication Instructions Recorded Confirmed Type atenoloL [Tenormin] 25 mg PO BID 04/13/15 01/09/24 History Aspirin 81 mg PO DAILY #30 chew 04/03/20 01/09/24 Rx Albuterol Inhaler [Ventolin Hfa 2 puff INHALATION RT-Q4H PRN 03/12/21 01/09/24 History Inhaler] Fluticasone Propion/Salmeterol 1 puff INHALATION RT-BID 01/09/24 01/09/24 History [Wixela 250-50 Inhub] Insulin Aspart [NovoLOG Flexpen] 14 units SQ AC-TID 01/09/24 01/09/24 History Insulin Detemir [Levemir Flexpen] 56 units SQ BID 01/09/24 01/09/24 History Levocetirizine Dihydrochloride 5 mg PO HS 01/09/24 01/09/24 History [Xyzal] Multivitamins, Thera [Multivitamin 1 tab PO DAILY 01/09/24 01/09/24 History (formulary)] Vit C/E/Zn/Coppr/Lutein/Zeaxan 1 cap PO DAILY 01/09/24 01/09/24 History [Preservision Areds 2 Softgel] Allergies Allergy/AdvReac Type Severity Reaction Status Date / Time latex Allergy Rash/Hives Verified 01/09/24 07:01 Sulfa (Sulfonamide Allergy Rash/Hives Verified 01/09/24 07:01 Antibiotics) Physical Exam Vitals: Vital Signs Temp Pulse Resp BP Pulse Ox 01/09/24 07:31 97.7 F 75 18 128/62 95 01/09/24 06:00 78 20 132/67 94 L 01/09/24 05:00 85 20 162/73 95 01/09/24 04:00 86 22 146/83 97 01/09/24 03:48 98.4 F 92 22 162/90 98 Intake and Output 01/08/24 01/09/24 01/09/24 22:59 06:59 14:59 Intake Total 14.333 0 Balance 14.333 0 Intake: Intake, IV Titration 14.333 0 Amount Heparin Sod,Pork in 0.45% 14.333 0 NaCl 25,000 unit In 0.45 % NaCl 1 250ml.bag @ 11. 603 UNITS/KG/HR 10 mls/hr IV .Q24H [facility] Rx#: [id number] Other: Weight 86.183 kg GENERAL: The patient is alert and oriented x3, not in any acute distress. Well developed, well nourished. HEENT: Pupils are round and equally reacting to light. EOMI. No scleral icterus. No conjunctival pallor. Normocephalic, atraumatic. No pharyngeal erythema. No thyromegaly. CARDIOVASCULAR: S1 and S2 present. No murmurs, rubs, or gallops. PULMONARY: Chest is clear to auscultation, no wheezing , no crackles. ABDOMEN: Soft, nontender, nondistended, normoactive bowel sounds. No palpable organomegaly. MUSCULOSKELETAL: No joint swelling or deformity. EXTREMITIES: No cyanosis, clubbing, or pedal edema. NEUROLOGICAL: Gross neurological examination did not reveal any focal deficits. SKIN: No rashes. no petechiae. Results CBC & Chem 7: 01/09/24 03:37 01/09/24 03:37 Labs: Abnormal Lab Results - Last 24 Hours (Table) 01/09/24 01/09/24 01/09/24 Range/Units 03:37 03:37 03:37 MCV 101.6 H (80.0-100.0) fL APTT 121.7 H* (22.0-30.0) sec Chloride 110 H (98-107) mmol/L Carbon Dioxide 12 L (22-30) mmol/L BUN 35 H (7-17) mg/dL Creatinine 1.66 H (0.52-1.04) mg/dL Glucose 382 H (74-99) mg/dL Alkaline Phosphatase 136 H (38-126) U/L Troponin I (0.000-0.034) ng/mL Lipase 369 H (23-300) U/L 01/09/24 01/09/24 Range/Units 03:37 07:38 MCV (80.0-100.0) fL APTT (22.0-30.0) sec Chloride (98-107) mmol/L Carbon Dioxide (22-30) mmol/L BUN (7-17) mg/dL Creatinine (0.52-1.04) mg/dL Glucose (74-99) mg/dL Alkaline Phosphatase (38-126) U/L Troponin I 1.240 H* 1.590 H* (0.000-0.034) ng/mL Lipase (23-300) U/L Assessment and Plan Assessment: Non-STEMI CKD stage III Asthma Hypertension Hyperlipidemia Diabetes mellitus History of PE History of stroke Plan: Continue with heparin drip Continue with gentle hydration Resume insulin and insulin sliding scale Cardiology consult Check echocardiogram Labs and medication were reviewed.. Continue same treatment. Continue with sy mptomatic treatment. Resume home medication. Monitor labs and vitals. DVT and GI prophylaxis. Further recommendations as per clinical course of the patient DVT prophylaxis: Subcutaneous heparin GI Prophylaxis: Pepcid PT/OT: Pending Prognosis is guarded
[2024-01-09] MEDS: ASPIRIN 81 MG PO SCH (09:16)
[2024-01-09] MEDS: MULTIVITAMINS, THERA 1 EACH TAB PO SCH (09:16)
[2024-01-09] MEDS: atenoloL 25 MG TAB PO SCH (09:17)
[2024-01-09] MEDS ORDERED: NITROGLYCERIN SL TABS 0.4 MG TAB SUBLINGUAL PRN (10:56)
--- NOTE | 2024-01-09 10:56 | P.CRDCN ---
History of Present Illness History of present illness: HISTORY OF PRESENTING ILLNESS This is a pleasant 73-year-old with past medical history significant for hypertension, hyperlipidemia, diabetes mellitus type 2, carotid artery disease, chronic kidney disease. She does not follow with a settlement processor. She has strong family history of CAD with everyone in her family dying from heart disease. She was a prior smoker however quit 10-20 years ago. She has not seen a settlement processor. She also has asthma and takes inhalers. Over last 1-2 months she has been having frequent episodes of chest pain and dyspnea with minimal exertion. She would take an inhaler or take a hot shower and it would usually improved. She was attributed this to asthma. She has more significant episode yesterday where symptoms did not improve and had persistent chest pain until she went to [facility] and was given nitro and morphine with improvement in her pain. She states currently her chest pain is completely resolved. Troponins elevated at 1.2, 1.5. Creatinine is 1.6 which appears at her baseline 1.5-1.7 per history. REVIEW OF SYSTEMS At the time of my exam: CONSTITUTIONAL: Denies fever or chills. CARDIOVASCULAR: +chest pain, +shortness of breath, no orthopnea, PND or palpitations. RESPIRATORY: Denies cough. GASTROINTESTINAL: Denies abdominal pain, diarrhea, constipation, nausea or vomiting. MUSCULOSKELETAL: Denies myalgias. NEUROLOGIC: Denies numbness, tingling or weakness. ENDOCRINE: Denies fatigue, weight change, polydipsia or polyurina. GENITOURINARY: Denies burning, hematuria or urgency with micturation. HEMATOLOGIC: Denies history of anemia or bleeding. PHYSICAL EXAMINATION Vital signs reviewed. CONSTITUTIONAL: No apparent distress. HEENT: Head is normocephalic. Pupils are equal, round. Sclerae anicteric. Mucous membranes of the mouth are moist. No JVD. No carotid bruit. CHEST EXAMINATION: Lungs are clear to auscultation. No chest wall tenderness is noted on palpation or with deep breathing. HEART EXAMINATION: Regular rate and rhythm. S1, S2 heard. No murmurs, gallops or rub. ABDOMEN: Soft, nontender. Positive bowel sounds. EXTREMITIES: 2+ peripheral pulses, no lower extremity edema and no calf tenderness. NEUROLOGIC EXAMINATION: Patient is awake, alert and oriented x3. ASSESSMENT NSTEMI with type I etiology Chest pain, dyspnea with exertion consistent with angina Diabetes mellitus type 2 Hypertension Hyperlipidemia Carotid artery disease Family history of CAD Remote tobacco abuse Asthma PLAN Patient with non-STEMI however currently chest pain-free. We discussed recommendations for heart catheterization and discussed risk of kidney injury with significant kidney disease to begin with however discussed risks and benefits and patient is agreeable. Continue with aspirin as well as heparin d rip and nitro as needed. Currently chest pain-free however proceed with catheterization today. Check 2-D echo. Further recommendations to follow. Past Medical History Past Medical History: Atrial Fibrillation, Asthma, CVA/TIA, Diabetes Mellitus, Hyperlipidemia, Pulmonary Embolus (PE), Renal Disease Additional Past Medical History / Comment(s): vaginal dysplasia ,carotid artery blockage, kidney stones, stage 3 kidney disease,. pt states had covid 2019 History of Any Multi-Drug Resistant Organisms: None Reported Past Surgical History: Cholecystectomy, Tonsillectomy, Tubal Ligation, Ventriculoperitoneal Shunt Additional Past Surgical History / Comment(s): lithotripsy, elmer cataract surgery, eyelid issues, uterine laser ablation with 3 months interferon Past Anesthesia/Blood Transfusion Reactions: Previous Problems w/ Anesthesia Additional Past Anesthesia/Blood Transfusion Reaction / Comment(s): takes longer time to wake up after anesthesia. request not to be yelled at to wake up Past Psychological History: Anxiety, PTSD Smoking Status: Never smoker Past Alcohol Use History: None Reported Past Drug Use History: None Reported - Past Family History Sister(s) Family Medical History: Cancer Additional Family Medical History / Comment(s): lung spread to brain Father History Unknown: Yes Medications and Allergies Home Medications Medication Instructions Recorded Confirmed Type atenoloL [Tenormin] 25 mg PO BID 04/13/15 01/09/24 History Aspirin 81 mg PO DAILY #30 chew 04/03/20 01/09/24 Rx Albuterol Inhaler [Ventolin Hfa 2 puff INHALATION RT-Q4H PRN 03/12/21 01/09/24 History Inhaler] Fluticasone Propion/Salmeterol 1 puff INHALATION RT-BID 01/09/24 01/09/24 History [Wixela 250-50 Inhub] Insulin Aspart [NovoLOG Flexpen] 14 units SQ AC-TID 01/09/24 01/09/24 History Insulin Detemir [Levemir Flexpen] 56 units SQ BID 01/09/24 01/09/24 History Levocetirizine Dihydrochloride 5 mg PO HS 01/09/24 01/09/24 History [Xyzal] Multivitamins, Thera [Multivitamin 1 tab PO DAILY 01/09/24 01/09/24 History (formulary)] Vit C/E/Zn/Coppr/Lutein/Zeaxan 1 cap PO DAILY 01/09/24 01/09/24 History [Preservision Areds 2 Softgel] Allergies Allergy/AdvReac Type Severity Reaction Status Date / Time latex Allergy Rash/Hives Verified 01/09/24 07:01 Sulfa (Sulfonamide Allergy Rash/Hives Verified 01/09/24 07:01 Antibiotics) Physical Exam Vitals: Vital Signs Temp Pulse Resp BP Pulse Ox 01/09/24 10:10 73 18 139/61 96 01/09/24 09:19 80 18 135/73 93 L 01/09/24 07:31 97.7 F 75 18 128/62 95 01/09/24 06:00 78 20 132/67 94 L 01/09/24 05:00 85 20 162/73 95 01/09/24 04:00 86 22 146/83 97 01/09/24 03:48 98.4 F 92 22 162/90 98 Intake and Output 01/08/24 01/09/24 01/09/24 22:59 06:59 14:59 Intake Total 14.333 0 Balance 14.333 0 Intake: Intake, IV Titration 14.333 0 Amount Heparin Sod,Pork in 0.45% 14.333 0 NaCl 25,000 unit In 0.45 % NaCl 1 250ml.bag @ 11. 603 UNITS/KG/HR 10 mls/hr IV .Q24H [facility] Rx#: [id number] Other: Weight 86.183 kg Results 01/09/24 03:37 01/09/24 03:37 Cardiac Enzymes 01/09/24 01/09/24 01/09/24 Range/Units 03:37 03:37 07:38 AST 26 (14-36) U/L Troponin I 1.240 H* 1.590 H* (0.000-0.034) ng/mL Coagulation 01/09/24 Range/Units 03:37 PT 10.9 (10.0-12.5) sec APTT 121.7 H* (22.0-30.0) sec CBC 01/09/24 Range/Units 03:37 WBC 7.9 (3.8-10.6) k/uL RBC 4.17 (3.80-5.40) m/uL Hgb 13.5 (11.4-16.0) gm/dL Hct 42.4 (34.0-46.0) % Plt Count 261 (150-450) k/uL Comprehensive Metabolic Panel 01/09/24 Range/Units 03:37 Sodium 141 (137-145) mmol/L Potassium 4.0 (3.5-5.1) mmol/L Chloride 110 H (98-107) mmol/L Carbon Dioxide 12 L (22-30) mmol/L BUN 35 H (7-17) mg/dL Creatinine 1.66 H (0.52-1.04) mg/dL Glucose 382 H (74-99) mg/dL Calcium 8.4 (8.4-10.2) mg/dL AST 26 (14-36) U/L ALT 11 (4-34) U/L Alkaline Phosphatase 136 H (38-126) U/L Total Protein 6.8 (6.3-8.2) g/dL Albumin 4.2 (3.5-5.0) g/dL Current Medications Generic Name Dose Route Start Last Admin Trade Name Freq PRN Reason Stop Dose Admin Albuterol Sulfate 2.5 mg 01/09/24 08:35 Albuterol Nebulized 2.5 Mg/3 Ml INHALATION RT-Q4H PRN Dyspnea Aspirin 81 mg 01/09/24 09:00 01/09/24 09:16 Aspirin 81 Mg PO 81 mg DAILY JOSEPH Administration Atenolol 25 mg 01/09/24 09:00 01/09/24 09:17 Atenolol 25 Mg Tab PO 25 mg BID JOSEPH Administration Budesonide/Formoterol Fumarate 2 puff 01/09/24 20:00 Symbicort 80-4.5 Mcg Inhaler INHALATION RT-BID [facility] Heparin Sodium (Porcine) 0 unit 01/09/24 04:01 Heparin Sodium 1,000 Un/Ml (10ml Vl) IV PER PROTOCOL PRN Low PTT Protocol Heparin Sodium/Sodium Chloride 250 mls @ 10 mls/hr 01/09/24 04:15 01/09/24 07:12 25,000 unit/ Sodium Chloride IV 8.603 units/kg/hr .Q24H JOSEPH 7.414 mls/hr Titration Protocol 11.603 UNITS/KG/HR Sodium Chloride 1,000 mls @ 75 mls/hr 01/09/24 05:45 01/09/24 06:07 Saline 0.9% IV 75 mls/hr .[id number] JOSEPH Administration Insulin Detemir 50 unit 01/10/24 07:00 Insulin Detemir (Levemir) 100 Unit/Ml Syr SQ DAILY@0700 JOSEPH Morphine Sulfate 4 mg 01/09/24 05:45 Morphine Sulfate 4 Mg/Ml Syringe IV Q4HR PRN Severe Pain (Scale 7 to 10) Multivitamins 1 each 01/09/24 09:00 01/09/24 09:16 Multivitamins, Thera 1 Each Tab PO 1 each DAILY JOSEPH Administration Naloxone HCl 0.2 mg 01/09/24 05:45 Naloxone 0.4 Mg/Ml 1 Ml Vial IV Q2M PRN Opioid Reversal Nitroglycerin 0.5 inch 01/09/24 04:30 01/09/24 09:16 Nitroglycerin Oint 1 Inch/Gm Packet TOPICAL 0.5 inch Q8HR JOSEPH Administration Intake and Output 01/08/24 01/09/24 01/09/24 22:59 06:59 14:59 Intake Total 14.333 0 Balance 14.333 0 Intake: Intake, IV Titration 14.333 0 Amount Heparin Sod,Pork in 0.45% 14.333 0 NaCl 25,000 unit In 0.45 % NaCl 1 250ml.bag @ 11. 603 UNITS/KG/HR 10 mls/hr IV .Q24H [facility] Rx#: [id number] Other: Weight 86.183 kg 01/09/24 03:37 01/09/24 03:37
[2024-01-09] MEDS: ASPIRIN 325 MG TAB PO STA (11:28)
[2024-01-09] MEDS: ATORVASTATIN 80 MG TAB PO STA (11:34)
[2024-01-09] MEDS ORDERED: LIDOCAINE 1% INJ 10MG/ML (20 ML MDV) ONE (12:48)
[2024-01-09] MEDS ORDERED: VERAPAMIL 2.5 MG/ML 2 ML AMP ONE (12:48)
[2024-01-09] MEDS: MIDAZOLAM 2 MG/2 ML VIAL IVP ONE (13:29)
[2024-01-09] MEDS: fentaNYL (PF) 50 MCG/ML 2 ML AMP IVP ONE (13:29)
[2024-01-09] MEDS: LIDOCAINE 1% INJ 10MG/ML (20 ML MDV) SQ ONE (13:29)
[2024-01-09] MEDS: VERAPAMIL SYRINGE (5 MG/10 ML) INTRAARTER ONE (13:30)
[2024-01-09] MEDS: HEPARIN SODIUM 1,000 UN/ML (10ML VL) IVP ONE (13:34)
[2024-01-09] MEDS: SODIUM CHLORIDE 0.9% 1,000 ML IV ONE (13:34)
[2024-01-09] MEDS ORDERED: fentaNYL (PF) 50 MCG/ML 2 ML AMP ONE (13:41)
--- NOTE | 2024-01-09 13:45 | P.CARDCATH ---
Description of Procedure: PROCEDURES PERFORMED: Left heart catheterization, bilateral coronary angiography, ultrasound guided arterial access INDICATION: non-STEMI CONSENT:I have discussed the risks, benefits and alternative therapies for the above-mentioned procedure and for both sedation/analgesia as well as necessary blood product administration, if indicated, as they pertain to this patient. The patient has indicated understanding and acceptance of the risks and procedures discussed. PROCEDURE: After the risks, benefits and alternatives of the above mentioned procedure explained in detail with the patient, informed consent was obtained. Patient was taken to the catheterization lab and prepped and draped in usual fashion. Ultrasound guidance was used to assess for arterial access. 1% lidocaine was used to anesthetize the right radial artery. A 6-Somali sheath was placed in the right radial artery using modified Seldinger technique and ul trasound guidance. Left coronary angiography was performed with a 5-Somali JL 3.5 catheter and right coronary angiography was performed with a 5-Somali FR5 catheter in various views. A 5-Somali FR5 catheter was inserted into the left ventricle and pressure measurements were obtained. The right radial sheath was removed and a TR band was placed with hemostasis achieved. The patient tolerated the procedure well. Patient was transported back to the post catheterization holding area in stable condition. Conscious Sedation: Patient was monitored under the direct supervision of myself for conscious sedation using Versed and fentanyl for a total duration of 9 minutes HEMODYNAMICS: aorta: 147/52 LV: 167/15, LVEDP 27 SELECTIVE CORONARY ARTERIOGRAPHY: LEFT MAIN: The left main is a large caliber vessel which bifurcates into the LAD and circumflex. There is mild 20% stenosis. LEFT ANTERIOR DESCENDING CORONARY ARTERY: LAD is a large caliber vessel which wraps around to the apex. There is a proximal LAD 30-40% stenosis and a mid LAD 80% stenosis just after a moderate caliber diagonal 2 branch with. Otherwise there are mild luminal irregularities. There is a "high diagonal" 1 branch which appears to be nearly ramus with no significant stenosis. LEFT CIRCUMFLEX CORONARY ARTERY: Left circumflex is a small to moderate caliber vessel with a proximal 99% stenosis with left to left collaterals. RIGHT CORONARY ARTERY: The right coronary artery is a large caliber vessel which gives off a PDA and PLV branch and is the dominant vessel. There is 100% stenosis FINAL IMPRESSION: 1. CAD as described above including 80% mid LAD, 99% proximal circumflex and 100% subtotally occluded RCA stenosis. 2. Elevated left sided filling pressures PLAN: 1. Aggressive risk factor modification per most recent ACC/AHA guidelines. 2. Surgical evaluation for CABG
[2024-01-09] MEDS: IOPAMIDOL-370 200ML BTL INJ ONE (13:47)
[2024-01-09 16:03] LABS: Glucose,Whole Blood 406 mg/dL (70-110)
[2024-01-09] MEDS ORDERED: DEXTROSE 50% SYRINGE 50 ML IVP PRN ×3 (16:13→16:22)
[2024-01-09] MEDS: INSULIN ASPART (NovoLOG) 100 UNIT/ML VIAL SQ ONE (16:24)
--- NOTE | 2024-01-09 16:47 | P.GSCN ---
History of Present Illness Consult date: 01/09/24 Reason for Consult: Triple-vessel coronary artery disease, non-ST elevated myocardial infarction this admission, evaluation for myocardial revascularization surgery. Requesting physician: Guzman Hahn History of present illness: This is a 73-year-old female patient who follows on an outpatient basis with Bria Gauthier for her primary care. She has a past medical history significant for hypertension, hyperlipidemia, history of CVA with residual left- sided weakness, diabetes mellitus type 2 insulin-dependent, macular degeneration, asthma, COPD, obesity with a BMI of 31.6 kg/m, paroxysmal atrial fibrillation, irritable bowel syndrome, chronic kidney disease stage III, frequent UTIs, history of kidney stones, history of vaginal dysplasia, bilateral carotid disease with history of bilateral carotid artery endarterectomies, and a is a lifetime non-smoker. She presented to the emergency department at [facility] yesterday January 08, 2024 with complaints of shortness of breath and chest pressure, as she describes tight squeezing-like sensation rating her pain 10 out of 10 on the pain scale. She reports she has been associating the shortness of breath and chest pressure to her asthma and was using her inhaler and hot showers to try to control the shortness of breath and chest pressure. She denies any recent fever, chills, nausea, vomiting, diaphoresis, edema, visual disturbances, constipation, diarrhea, hemoptysis, hematemesis, or syncope. The patient does state that she did have an episode where she felt slightly lightheaded. The patient reports that she could not walk 10 feet without getting shortness of breath or start having chest discomfort. Initial laboratory results from [facility] showed a WBC count of 7.12, hemoglobin 14.3, hematocrit 43.4, platelets 278, PT 13.0, INR 1.04, PTT 30.2, glucose 567, BUN 38, creatinine 1.81, sodium 139, potassium 4.2, chloride 100, CO2 18, calcium 9.6, magnesium 1.2, AST 17, ALT 11, and positive serial tro ponins as high as 38. Due to the patient's presenting symptoms and positive troponins the patient was subsequently transferred to [facility] for further evaluation and treatment recommendations. She was seen by Dr. Hahn from cardiology and was recommended to undergo a heart ca theterization which was completed today. The heart catheterization revealed triple-vessel coronary artery disease including an 80% stenosis to her mid left anterior descending coronary artery, a 99% stenosis to her proximal circumflex coronary artery, and 100% subtotally occluded right coronary artery stenosis. Due to the findings on the heart catheterization a consult was placed to cardiothoracic surgery for further evaluation and treatment recommendations including myocardial revascularization surgery. Review of Systems A review of systems was completed and was negative except as mentioned in the HPI. Past Medical History Past Medical History: Atrial Fibrillation, Asthma, COPD, CVA/TIA, Diabetes Mellitus, Eye Disorder (Macular degeneration), Hyperlipidemia, Hypertension, Pulmonary Embolus (PE), Renal Disease (Stage III chronic kidney disease) Additional Past Medical History / Comment(s): vaginal dysplasia ,carotid artery blockage, kidney stones, stage 3 kidney disease,. pt states had covid 2019 History of Any Multi-Drug Resistant Organisms: None Reported Past Surgical History: Appendectomy, Cholecystectomy, Tonsillectomy, Tubal Ligat ion Additional Past Surgical History / Comment(s): lithotripsy, elmer cataract surgery, eyelid issues, uterine laser ablation with 3 months interferon, hemorrhoidectomy, 2 C-sections, oophorectomy Past Anesthesia/Blood Transfusion Reactions: Previous Problems w/ Anesthesia Additional Past Anesthesia/Blood Transfusion Reaction / Comm: takes longer time to wake up after anesthesia. request not to be yelled at to wake up Past Psychological History: Anxiety, PTSD Smoking Status: Never smoker Past Alcohol Use History: None Reported Past Drug Use History: None Reported - Past Family History Sister(s) Family Medical History: Cancer Additional Family Medical History / Comment(s): lung spread to brain Father History Unknown: Yes Family Medical History: Myocardial Infarction (AR) Mother Family Medical History: Congestive Heart Failure (CHF), Diabetes Mellitus Medications and Allergies Home Medications Medication Instructions Recorded Confirmed Type atenoloL [Tenormin] 25 mg PO BID 04/13/15 01/09/24 History Aspirin 81 mg PO DAILY #30 chew 04/03/20 01/09/24 Rx Albuterol Inhaler [Ventolin Hfa 2 puff INHALATION RT-Q4H PRN 03/12/21 01/09/24 History Inhaler] Fluticasone Propion/Salmeterol 1 puff INHALATION RT-BID 01/09/24 01/09/24 History [Wixela 250-50 Inhub] Insulin Aspart [NovoLOG Flexpen] 14 units SQ AC-TID 01/09/24 01/09/24 History Insulin Detemir [Levemir Flexpen] 56 units SQ BID 01/09/24 01/09/24 History Levocetirizine Dihydrochloride 5 mg PO HS 01/09/24 01/09/24 History [Xyzal] Multivitamins, Thera [Multivitamin 1 tab PO DAILY 01/09/24 01/09/24 History (formulary)] Vit C/E/Zn/Coppr/Lutein/Zeaxan 1 cap PO DAILY 01/09/24 01/09/24 History [Preservision Areds 2 Softgel] Allergies Allergy/AdvReac Type Severity Reaction Status Date / Time latex Allergy Rash/Hives Verified 01/09/24 07:01 Sulfa (Sulfonamide Allergy Rash/Hives Verified 01/09/24 07:01 Antibiotics) Surgical - Exam Vital Signs Temp Pulse Resp BP Pulse Ox 98.4 F 92 22 162/90 98 01/09/24 03:48 01/09/24 03:48 01/09/24 03:48 01/09/24 03:48 01/09/24 03:48 - General well developed, well nourished, moderate distress (Episodes of shortness of breath), no pain, chronically ill, obese - Eyes PERRL, normal ocular movement, no pale, no icteric - ENT normal pinna, normal nares, normal mucosa, no hearing loss, no congestion, poor half-way - Neck Neck is supple, no lymphadenopathy. no masses, trachea midline, no lymphadectomy, no venous distension carotid bruit: left ( left carotid bruit) - Respiratory Lung sounds essentially clear throughout, diminished to her bilateral bases. Respirations are symmetrical, even and tachypneic. Oxygen saturations at 93% on 2 L nasal cannula - Cardiovascular Regular rhythm and rate. S1 and S2 present, negative for S3, gallop or murmurs. No edema present. - Abdomen Abdomen is soft, nontender nondistended. Active bowel sounds present all 4 abdominal quadrants. No guarding rigidity. No organomegaly appreciated. - Genitourinary Deferred - Rectum Deferred - Integumentary Skin is warm and dry. No clubbing or cyanosis is present. No rash or abnormal pigmentation. no growths - Neurologic No focal deficits. - Musculoskeletal Some slight residual chronic left-sided weakness from previous CVA. - Psychiatric oriented to time, oriented to person, oriented to place, speech is normal, me joe intact Results - Labs 01/10/24 05:09 01/09/24 03:37 Abnormal Lab Results - Last 24 Hours (Table) 01/09/24 01/09/24 01/09/24 Range/Units 03:37 03:37 03:37 MCV 101.6 H (80.0-100.0) fL APTT 121.7 H* (22.0-30.0) sec Chloride 110 H (98-107) mmol/L Carbon Dioxide 12 L (22-30) mmol/L BUN 35 H (7-17) mg/dL Creatinine 1.66 H (0.52-1.04) mg/dL Glucose 382 H (74-99) mg/dL Alkaline Phosphatase 136 H (38-126) U/L Troponin I (0.000-0.034) ng/mL Lipase 369 H (23-300) U/L 01/09/24 01/09/24 01/09/24 Range/Units 03:37 07:38 10:37 MCV (80.0-100.0) fL APTT 47.1 H (22.0-30.0) sec Chloride (98-107) mmol/L Carbon Dioxide (22-30) mmol/L BUN (7-17) mg/dL Creatinine (0.52-1.04) mg/dL Glucose (74-99) mg/dL Alkaline Phosphatase (38-126) U/L Troponin I 1.240 H* 1.590 H* (0.000-0.034) ng/mL Lipase (23-300) U/L 01/09/24 Range/Units 10:37 MCV (80.0-100.0) fL APTT (22.0-30.0) sec Chloride (98-107) mmol/L Carbon Dioxide (22-30) mmol/L BUN (7-17) mg/dL Creatinine (0.52-1.04) mg/dL Glucose (74-99) mg/dL Alkaline Phosphatase (38-126) U/L Troponin I 1.460 H* (0.000-0.034) ng/mL Lipase (23-300) U/L Diabetes panel 01/09/24 Range/Units 03:37 Sodium 141 (137-145) mmol/L Potassium 4.0 (3.5-5.1) mmol/L Chloride 110 H (98-107) mmol/L Carbon Dioxide 12 L (22-30) mmol/L BUN 35 H (7-17) mg/dL Creatinine 1.66 H (0.52-1.04) mg/dL Glucose 382 H (74-99) mg/dL Calcium 8.4 (8.4-10.2) mg/dL AST 26 (14-36) U/L ALT 11 (4-34) U/L Alkaline Phosphatase 136 H (38-126) U/L Total Protein 6.8 (6.3-8.2) g/dL Albumin 4.2 (3.5-5.0) g/dL Calcium panel 01/09/24 Range/Units 03:37 Calcium 8.4 (8.4-10.2) mg/dL Albumin 4.2 (3.5-5.0) g/dL Pituitary panel 01/09/24 Range/Units 03:37 Sodium 141 (137-145) mmol/L Potassium 4.0 (3.5-5.1) mmol/L Chloride 110 H (98-107) mmol/L Carbon Dioxide 12 L (22-30) mmol/L BUN 35 H (7-17) mg/dL Creatinine 1.66 H (0.52-1.04) mg/dL Glucose 382 H (74-99) mg/dL Calcium 8.4 (8.4-10.2) mg/dL Adrenal panel 01/09/24 Range/Units 03:37 Sodium 141 (137-145) mmol/L Potassium 4.0 (3.5-5.1) mmol/L Chloride 110 H (98-107) mmol/L Carbon Dioxide 12 L (22-30) mmol/L BUN 35 H (7-17) mg/dL Creatinine 1.66 H (0.52-1.04) mg/dL Glucose 382 H (74-99) mg/dL Calcium 8.4 (8.4-10.2) mg/dL Total Bilirubin 0.6 (0.2-1.3) mg/dL AST 26 (14-36) U/L ALT 11 (4-34) U/L Alkaline Phosphatase 136 H (38-126) U/L Total Protein 6.8 (6.3-8.2) g/dL Albumin 4.2 (3.5-5.0) g/dL - Imaging EKG: image reviewed Assessment and Plan Assessment: Multivessel coronary artery disease Non-ST elevated myocardial infarction this admission Hypertension Hyperlipidemia Chronic kidney disease stage III, with a baseline creatinine of 1.6-1.7 Insulin-dependent diabetes mellitus History of bilateral carotid artery disease, carotid duplex study from August 2019 shows a right ICA occlusion, previous bilateral carotid endarterectomies History of asthma with an FEV1 1.09 L predicted value 52% History of COPD Macular degeneration Remote history of paroxysmal atrial fibrillation Vaginal dysplasia Clinical frailty score of 6 Anxiety Remote history of COVID 19 infection in 2018 Plan: The patient was seen and examined at her bedside in the extended stay unit with her daughter present at her bedside. Her chart and diagnostics were reviewed. Her case was discussed in detail with Dr. Robert Peterson from cardiothoracic surgery. Preoperative teaching and preoperative testing has been initiated. A clinical frailty score was calculated with her score showing 6 moderately frail. A 5 m walk test was completed with the patient, time one 5.65 seconds, time to 6.23 seconds, time 3 6.15 seconds. The patient tolerated the walk test well, although was complaining of shortness of breath during the test. Continue to maximize medical management with aspirin, statin and beta-gomez. Medical management other comorbidities per primary care service and cardiology service. Bedside FEV1 completed, consult Dr. Ferreira from pulmonary/critical care medicine for further recommendations. More recommendations to follow based on patient's clinical course and as her preoperative testing has been obtained. Once her p reoperative testing has been obtained and STS risk or will be calculated and discussed with the patient. Thank you Dr. Hahn for this consult and we look forward to working with you in the care of this patient. I have personally seen and examined the patient, performed the documentation and the assessment and plan as written. Number of minutes spent on the visit: 30. JUNE Villarreal Attending Addendum: Pt seen and evaluated with ADJUNCT PROFESSOR OF VOICE above. Agree with his assessment and plan. This is a 73 year-old F with multiple medical issues who presents with angina. 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 In addition she is found to have LAD disease. Of note, she has severe COPD/asthma with FEV1 of .80L, as well as CKD and multilpe previous TIA/CVA's in the past. In addition she has recurrent carotid stenosis of 100% on the right and 50-69% on the left. Unfortunately right now she is extremely high risk for CABG. Will discuss with cardiology PCI vs medical management. If her lungs show improvement and kidney disease is stable, she may be a candidate in the future. I spent 45 minutes rev iewing the data and discussing the plan of care with the patient and the care team. Time with Patient: Greater than 30
[2024-01-09] MEDS: INSULIN ASPART (NovoLOG) 100 UNIT/ML VIAL SQ SCH (17:16)
--- NOTE | 2024-01-09 18:54 | CT ---
EXAMINATION TYPE: CT chest wo con DATE OF EXAM: 01/09/2024 COMPARISON: Radiograph same day HISTORY:73-year-old female pre-op open heart TECHNIQUE: Contiguous axial scanning of the chest without IV contrast. Coronal/sagittal reconstructio ns performed. CT DLP: 539.5mGycm. Automatic exposure control utilized for a dose reduction. FINDINGS: The heart is normal size with trace anterior pericardial effusion measuring 8 mm thick. There is exte nsive three-vessel coronary artery calcification present. Mild to moderate atherosclerotic arch calcifications with conventional arch vessel branching anatomy. Normal caliber to the aorta. No thoracic lymphadenopathy by CT size criteria. Borderline caliber main right pulmonary artery up to 2.5 cm may reflect underlying pulmonary arterial hypertension. Septal lines throughout the lungs. Moderate emphysematous changes. Breathing motion artifact in the l ower lungs with some strandy areas of atelectasis. Bilobed nodularity inferior lingula measuring 9 mm to be reassessed at follow-up. Visualized upper abdomen shows heterogeneous low density appearance to the right liver lobe, possible underlying fatty infiltration. Infiltrative process difficult to exclude. Consider dynamic contrast- enhanced liver CT or MRI or ultrasound for initial assessment. Cholecystectomy clips. Bones: DISH throughout the mid and lower thoracic spine. Osteopenia. IMPRESSION: 1. COPD with moderate emphysema. 2. Extensive three-vessel coronary artery calcifications. Possible underlying pulmonary arterial hype rtension and septal lines throughout the lungs. Correlate for mild CHF with pulmonary vascular conges tion. 3. 9 mm bilateral nodularity inferior lingula. Three-month follow-up CT chest to exclude a suspicious pulmonary nodule. 4. Hecl-pd-lryjuair apical scarring calcifications limited to the aortic arch. Conventional arch vess el branching anatomy. No aneurysm. 5. Very heterogeneous appearance to the right liver lobe may be due to fatty infiltration. Infiltrati ve process/neoplasm is not excluded at this time. Consider initial assessment with liver ultrasound. Further evaluation with a dynamic contrast enhanced CT or MRI may be indicated subsequently.
--- NOTE | 2024-01-09 18:55 | XR ---
EXAMINATION TYPE: XR chest 2V DATE OF EXAM: 01/09/2024 COMPARISON: 03/30/2020 HISTORY: 73-year-old female preop cardiac surgery TECHNIQUE: AP and lateral views FINDINGS: Heart borderline enlarged. Hyperinflation. Diffuse interstitial opacity without consolidation or pleu ral effusion. [facility] mid and lower thoracic spine. IMPRESSION: COPD. Correlate for superimposed mild CHF with pulmonary vascular congestion.
--- NOTE | 2024-01-09 20:20 | US ---
EXAMINATION TYPE: US carotid duplex BILAT DATE OF EXAM: 01/09/2024 Exam done portable COMPARISON: US 2019 CLINICAL INDICATION: Female, 73 years old with history of PreOp Cardiac Surgery; TECHNIQUE: Carotid duplex ultrasound examination. Indirect Doppler criteria was utilized. FINDINGS: Some irregular plaques are seen in the distal CCAs and proximal ICAs bilaterally on grayscale imaging . EXAM MEASUREMENTS: RIGHT: Peak Systolic Velocity (PSV) cm/sec ----- Right CCA: 49.4 ----- Right ICA: occluded ----- Right ECA: 179.4 ICA/CCA ratio: n/a RIGHT: End Diastole cm/sec ----- Right CCA: 0.0 ----- Right ICA: occluded ----- Right ECA: 13.4 LEFT: Peak Systolic Velocity (PSV) cm/sec ----- Left CCA: 156.1 ----- Left ICA: 133.2 ----- Left ECA: 210.9 ICA/CCA ratio: 0.9 LEFT: End Diastole cm/sec ----- Left CCA: 0.0 ----- Left ICA: 41.6 ----- Left ECA: 14.0 VERTEBRALS (direction of flow): Right Vertebral: Antegrade Left Vertebral: Antegrade Rhythm: Normal Difficult and limited study due to patient's thick neck and high bifurcation and patient snoring th roughout exam IMPRESSION: 1. Difficult and limited study. 2. Right ICA appears occluded. 3. Flow velocities in the proximal left ICA suggesting 50-69% stenosis. 4. Antegrade flow in the vertebral arteries. Criteria for Assigning % of Stenosis / Diameter reduction (Estimation based on the indirect measurements of the internal carotid artery velocities (ICA PSV). 1. Normal (no stenosis)=ICA PSV < 125 cm/s: ratio < 2.0: ICA EDV<40 cm/s. 2. Less than 50% stenosis=ICA PSV < 125 cm/s: ratio < 2.0: ICA EDV<40 cm/s. 3. 50 to 69% stenosis=ICA PSV of 125 to 230 cm/s: ration 2.0 ? 4.0: ICA EDV 40-100 cm/s. 4. Greater than 70% stenosis to near occlusion= ICA PSV > 230 cm/s: ratio > 4.0: ICA EDV > 100 cm/s. 5. Near occlusion= ICA PSV velocities may be low or undetectable: variable ratio and ICA EDV. 6. Total occlusion=unable to detect flow.
[2024-01-09 20:21] LABS: Glucose,Whole Blood 168 mg/dL (70-110)
[2024-01-09] MEDS: SYMBICORT 80-4.5 MCG INHALER INHALATION SCH (20:46)
[2024-01-09] MEDS: INSULIN DETEMIR (LEVEMIR) 100 UNIT/ML SYR SQ SCH (21:34)
[2024-01-09] MEDS: MUPIROCIN 2% OINT 22 GM TUBE NASAL SCH (21:34)
[2024-01-09 21:58] LABS: Appearance,Urine Clear (Clear); Bacteria,Urine Occasional /hpf; Bilirubin,Urine Negative (Negative); Blood,Urine Negative (Negative); Color,Urine Colorless; Glucose,Urine (UA) Negative (Negative); Ketones,Urine Negative (Negative); Leukocyte Esterase,Urine Large (Negative); Mucus,Urine Rare /hpf; Nitrite,Urine Negative (Negative); PH, Urine 5.5 (5.0-8.0); Protein,Urine 1+ (Negative); RBC,Urine 2 /hpf (0-5); Specific Gravity,Urine 1.016 (1.001-1.035); Squamous Epithelial Cell,Urine <1 /hpf (0-4); Urobilinogen,Urine <2.0 mg/dL (<2.0); WBC,Urine 68 /hpf (0-5)
[2024-01-09] MEDS: HEPARIN SODIUM 1,000 UN/ML (10ML VL) IV PRN (22:11)
[2024-01-10 02:31] LABS: Hepatitis A Antibody IgM Nonreactive (Nonreactive); Hepatitis B Core IgM Nonreactive (Nonreactive); Hepatitis B Surface Antigen Nonreactive (Nonreactive); Hepatitis C IgG Antibody Nonreactive (Nonreactive)
[2024-01-10 02:42] LABS: Chol/HDL Ratio 6.68 Ratio
[2024-01-10 05:29] LABS: Glucose,Whole Blood 159 mg/dL (70-110)
--- NOTE | 2024-01-10 05:31 | US ---
EXAMINATION TYPE: US vein mapping BILAT DATE OF EXAM: 01/09/2024 7:32 PM Exam done portable COMPARISON: NONE CLINICAL INDICATION: Female, 73 years old with history of PreOp Cardiac Surgery; SIDE PERFORMED: Bilateral TECHNIQUE: Lower extremity saphenous vein is examined and measured utilizing real time linear array sonography. DUPLEX FINDINGS: Greater Saphenous: Color flow seen Measurements in mm: Right Greater Saphenous: Groin: 8.5 x 8.1 mm High Thigh: 5.8 x 6.3 mm Mid Thigh: 3.1 x 3.5 mm Above Knee: 2.4 x 2.5 mm Knee: 2.5 x 2.3 mm Below Knee: 2.4 x 2.7 mm Mid Calf: 1.9 x 2.5 mm At Ankle: 2.4 x 3.4 mm Left Greater Saphenous: Groin: 8.6 x 8.6 mm High Thigh: 6.3 x 6.0 mm Mid Thigh: 4.0 x 4.1 mm Above Knee: 3.0 x 3.4 mm Knee: 2.6 x 3.0 mm Below Knee: 2.3 x 2.7 mm Mid Calf: 2.5 x 3.0 mm At Ankle: 2.1 x 3.2 mm IMPRESSION: 1. Bilateral GSV measurements listed above. 2. Performing surgeon to determine viability as conduit.
[2024-01-10 05:38] LABS: Basophils # (A) 0.1 k/uL (0-0.2); Basophils % (A) 1 %; Eosinophils # (A) 0.4 k/uL (0-0.7); Eosinophils % (A) 5 %; HCT 35.4 % (34.0-46.0); HGB 11.2 gm/dL (11.4-16.0); Lymphocytes # (A) 1.7 k/uL (1.0-4.8); Lymphocytes % (A) 24 %; MCH 31.9 pg (25.0-35.0); MCHC 31.7 g/dL (31.0-37.0); MCV 100.8 fL (80.0-100.0); Macrocytosis Slight; Monocytes # (A) 0.5 k/uL (0-1.0); Monocytes % (A) 6 %; Neutrophils # (A) 4.5 k/uL (1.3-7.7); Neutrophils % (A) 63 %; Platelet Count 199 k/uL (150-450); RBC 3.52 m/uL (3.80-5.40); RDW 14.4 % (11.5-15.5); WBC 7.2 k/uL (3.8-10.6)
--- NOTE | 2024-01-10 06:40 | US ---
EXAMINATION TYPE: Pre-Operative Non-Invasive Evaluation of the hand for Potential Radial Artery Emmanuel houser, Measurements only Exam done portable DATE OF EXAM: 01/09/2024 7:32 PM CLINICAL INDICATION: Female, 73 years old with history of Pre-Op Cardiac Surgery; SIDE PERFORMED: Left TECHNIQUE: Radial artery is measured utilizing real time linear array sonography. Duplex Findings: Radial Artery: Color flow seen Measurements in mm, transverse view: Left Radial: Proximal: deferred due to IV site Mid: 3.2 x 3.0 mm Distal: 3.5 x 2.5 mm IMPRESSION: 1. Left Radial artery measurements listed above. 2. Performing surgeon to determine viability as conduit.
[2024-01-10] MEDS ORDERED: HEPARIN SODIUM,PORCINE (1 ML) 2,500 UNIT in SODIUM CHLORIDE 0.9% 250 ML IRRIGATION PRN (07:00)
[2024-01-10] MEDS ORDERED: HEPARIN SODIUM,PORCINE 10,000 UNIT in SODIUM CHLORIDE 0.9% 1,000 ML IRRIGATION PRN (07:00)
[2024-01-10] MEDS ORDERED: INSULIN DETEMIR (LEVEMIR) 100 UNIT/ML SYR SQ SCH (07:00)
[2024-01-10 07:05] LABS: Glucose,Whole Blood 148 mg/dL (70-110)
[2024-01-10] MEDS: ALBUTEROL NEBULIZED 2.5 MG/3 ML INHALATION PRN (08:02)
[2024-01-10] MEDS: ALPRAZolam 0.25 MG TAB PO PRN (08:49)
[2024-01-10] MEDS: ALPRAZolam 0.5 MG TAB PO PRN (10:01)
[2024-01-10] MEDS ORDERED: IPRATROPIUM-ALBUTEROL 3 ML NEB INHALATION PRN (10:11)
--- NOTE | 2024-01-10 10:18 | P.PN ---
Subjective This is a pleasant 33 years old female with past medical history of multiple medical problems as below. She was transferred from [facility] for chest pain and diagnosed today with non-STEMI. Patient has been having breathing difficulty even with exertional thought This is related to her lung disease as she has a history of both asthma and COPD as she explains but she is not on home oxygen and she follow-up with hog stomach preparer but she could not remember his name But also patient was complaining from severe crushing chest pain about 10/10 when it started on the left side, nonradiating, no relieving or precipitating factors and no associated coughing. Her chest pain now feels mild after she received treatment in the emergency room Patient denies any other GI urinary symptoms, no headache dizziness weakness or numbness. She quit smoking about 15 years ago with no alcohol or illicit drugs. Vital stable CBC, INR unremarkable Creatinine 1.6 which is at baseline of 1.4-1.7 elevated. Glucose was elevated, Troponin are elevated 1.2 and 1.5 Lipase 369 EKG showing sinus rhythm at [address]-T changes Echocardiogram is ordered 01/10/2024 Patient underwent cardiac cath yesterday showing triple-vessel coronary artery disease, LAD 80%, left circumflex 99% and RCA is completely occluded 100% Cardiothoracic surgery are consulted for CABG evaluation. CT of the chest was done showing COPD with emphysema with bilateral pulmonary nodule [address] scan follow-up in 3 months also with some liver infiltrate which could be fatty continue plastic on the recommended liver ultrasound to be followed by CT/MRI. Patient remains on heparin drip currently She was very anxious this morning and Xanax helped her Also she has some tachypnea with limited air entry on both sides most likely related to her acute COPD exacerbation, pulmonary team were consulted and will address this. She is also on her home dose of aspirin 81 mg. Review of systems CONSTITUTIONAL: No fever, no malaise, no fatigue. GASTROINTESTINAL: No diarrhea, no nausea, no vomiting, no abdominal pain. Normoactive bowel sounds. NEUROLOGICAL: No headaches, no weakness, no numbness. HEMATOLOGICAL: Denies any bleeding or petechiae. GENITOURINARY: Denies any burning micturition, frequency, or urgency. MUSCULOSKELETAL/RHEUMATOLOGICAL: Denies any joint pain, swelling, or any muscle pain. ENDOCRINE: Denies any polyuria or polydipsia. Active Medications Generic Name Dose Route Start Last Admin Trade Name Freq PRN Reason Stop Dose Admin Albuterol/Ipratropium 3 ml 01/10/24 10:11 Ipratropium-Albuterol 3 Ml Neb INHALATION RT-Q2H PRN Shortness Of Breath Or Wheezing Albuterol/Ipratropium 3 ml 01/10/24 12:00 Ipratropium-Albuterol 3 Ml Neb INHALATION RT-QID JOSEPH Alprazolam 0.25 mg 01/09/24 10:56 01/10/24 08:49 Alprazolam 0.25 Mg Tab PO 0.25 mg Q6HR PRN Administration Mild Anxiety Alprazolam 0.5 mg 01/09/24 10:56 01/10/24 10:01 Alprazolam 0.5 Mg Tab PO 0.5 mg Q6HR PRN Administration Moderate Anxiety Aspirin 81 mg 01/09/24 09:00 01/10/24 08:49 Aspirin 81 Mg PO 81 mg DAILY JOSEPH Administration Atenolol 25 mg 01/09/24 09:00 01/10/24 08:49 Atenolol 25 Mg Tab PO 25 mg BID JOSEPH Administration Budesonide/Formoterol Fumarate 2 puff 01/10/24 20:00 Symbicort 160-4.5 Mcg Inhaler INHALATION RT-BID JOSEPH Dextrose/Water 25 ml 01/09/24 16:13 Dextrose 50% Syringe 50 Ml IVP PER PROTOCOL PRN Hypoglycemia Protocol Dextrose/Water 25 ml 01/09/24 16:22 Dextrose 50% Syringe 50 Ml IVP PER PROTOCOL PRN Hypoglycemia Protocol Dextrose/Water 50 ml 01/09/24 16:22 Dextrose 50% Syringe 50 Ml IVP PER PROTOCOL PRN Hypoglycemia Protocol Heparin Sodium (Porcine) 0 unit 01/09/24 04:01 01/09/24 22:11 Heparin Sodium 1,000 Un/Ml (10ml Vl) IV 2,150 unit PER PROTOCOL PRN Administration Low PTT Protocol Heparin Sodium/Sodium Chloride 250 mls @ 10 mls/hr 01/09/24 04:15 01/09/24 22:12 25,000 unit/ Sodium Chloride IV 10.6 units/kg/hr .Q24H JOSEPH 9.135 mls/hr Titration Protocol 11.603 UNITS/KG/HR Sodium Chloride 1,000 mls @ 75 mls/hr 01/09/24 05:45 01/10/24 08:50 Saline 0.9% IV 75 mls/hr .[id number] JOSEPH Administration Heparin Sodium (Porcine) 10, 1,001 mls @ 999 mls/hr 01/10/24 07:00 000 unit/ Sodium Chloride IRRIGATION 01/10/24 23:00 ONCE PRN INTRA-OP Heparin Sodium (Porcine) 2,500 250.5 mls @ 250 mls/hr 01/10/24 07:00 unit/ Sodium Chloride IRRIGATION 01/10/24 23:00 ONCE PRN INTRA-OP Insulin Aspart 14 unit 01/09/24 17:30 01/10/24 08:49 Insulin Aspart (Novolog) 100 Unit/Ml Vial SQ 14 unit AC-TID JOSEPH Administration Insulin Detemir 56 unit 01/09/24 21:00 01/10/24 08:49 Insulin Detemir (Levemir) 100 Unit/Ml Syr SQ 56 unit BID JOSEPH Administration Morphine Sulfate 4 mg 01/09/24 05:45 Morphine Sulfate 4 Mg/Ml Syringe IV Q4HR PRN Severe Pain (Scale 7 to 10) Multivitamins 1 each 01/09/24 09:00 01/10/24 08:49 Multivitamins, Thera 1 Each Tab PO 1 each DAILY JOSEPH Administration Mupirocin 1 applic 01/09/24 21:00 01/10/24 08:49 Mupirocin 2% Oint 22 Gm Tube NASAL 01/14/24 21:01 1 applic BID JOSEPH Administration Naloxone HCl 0.2 mg 01/09/24 05:45 Naloxone 0.4 Mg/Ml 1 Ml Vial IV Q2M PRN Opioid Reversal Nitroglycerin 0.5 inch 01/09/24 04:30 01/10/24 08:49 Nitroglycerin Oint 1 Inch/Gm Packet TOPICAL 0.5 inch Q8HR JOSEPH Administration Nitroglycerin 0.4 mg 01/09/24 10:56 Nitroglycerin Sl Tabs 0.4 Mg Tab SUBLINGUAL Q5M PRN Chest Pain Objective - Vital Signs Vital signs: Vital Signs Temp 98.0 F 01/10/24 03:16 Pulse 80 01/10/24 08:17 Resp 24 01/10/24 03:16 BP 139/73 01/10/24 03:16 Pulse Ox 92 L 01/10/24 08:02 FiO2 Intake & Output 01/09/24 01/10/24 01/10/24 18:59 06:59 18:59 Intake Total 397.453 31.757 118 Balance 397.453 31.757 118 Weight 86.183 kg 80.9 kg Intake: IV 200 Intake, IV Titration 79.453 31.757 Amount Heparin Sod,Pork in 0.45% 79.453 31.757 NaCl 25,000 unit In 0.45 % NaCl 1 250ml.bag @ 11. 603 UNITS/KG/HR 10 mls/hr IV .Q24H [facility] Rx#: [id number] Oral 118 118 Other: Voiding Method Toilet # Voids 1 3 # Bowel Movements 0 - Exam GENERAL: The patient is alert and oriented x3, not in any acute distress. Well developed, well nourished. Patient is anxious HEENT: Pupils are round and equally reacting to light. EOMI. No scleral icterus. No conjunctival pallor. Normocephalic, atraumatic. No pharyngeal erythema. No thyromegaly. CARDIOVASCULAR: S1 and S2 present. No murmurs, rubs, or gallops. PULMONARY: Chest is clear to auscultation, no wheezing , no crackles. Mild limited airway entry ABDOMEN: Soft, nontender, nondistended, normoactive bowel sounds. No palpable organomegaly. MUSCULOSKELETAL: No joint swelling or deformity. EXT mild limited REMITIES: No cyanosis, clubbing, or pedal edema. NEUROLOGICAL: Gross neurological examination did not reveal any focal deficits. SKIN: No rashes. no petechiae. - Labs CBC & Chem 7: 01/10/24 05:09 01/09/24 03:37 Labs: Abnormal Lab Results - Last 24 Hours (Table) 01/09/24 01/09/24 01/09/24 Range/Units 03:37 10:37 10:37 RBC (3.80-5.40) m/uL Hgb (11.4-16.0) gm/dL MCV (80.0-100.0) fL APTT 47.1 H (22.0-30.0) sec POC Glucose (mg/dL) (70-110) mg/dL Troponin I 1.460 H* (0.000-0.034) ng/mL Triglycerides 588.00 H (0.00-149.00) mg/dL Cholesterol 229.00 H (0.00-200.00) mg/dL VLDL Cholesterol, Calc 117.60 H (5.00-40.00) mg/dL HDL Cholesterol 34.30 L (40.00-60.00) mg/dL Urine Protein (Negative) Ur Leukocyte Esterase (Negative) Urine WBC (0-5) /hpf Urine WBC Clumps (None) /hpf Urine Bacteria (None) /hpf Urine Mucus (None) /hpf 01/09/24 01/09/24 01/09/24 Range/Units 15:52 20:18 21:20 RBC (3.80-5.40) m/uL Hgb (11.4-16.0) gm/dL MCV (80.0-100.0) fL APTT (22.0-30.0) sec POC Glucose (mg/dL) 406 H 168 H (70-110) mg/dL Troponin I (0.000-0.034) ng/mL Triglycerides (0.00-149.00) mg/dL Cholesterol (0.00-200.00) mg/dL VLDL Cholesterol, Calc (5.00-40.00) mg/dL HDL Cholesterol (40.00-60.00) mg/dL Urine Protein 1+ H (Negative) Ur Leukocyte Esterase Large H (Negative) Urine WBC 68 H (0-5) /hpf Urine WBC Clumps Few H (None) /hpf Urine Bacteria Occasional H (None) /hpf Urine Mucus Rare H (None) /hpf 01/09/24 01/10/24 01/10/24 Range/Units 21:25 05:09 05:09 RBC 3.52 L (3.80-5.40) m/uL Hgb 11.2 L (11.4-16.0) gm/dL MCV 100.8 H (80.0-100.0) fL APTT 35.0 H 49.3 H (22.0-30.0) sec POC Glucose (mg/dL) (70-110) mg/dL Troponin I (0.000-0.034) ng/mL Triglycerides (0.00-149.00) mg/dL Cholesterol (0.00-200.00) mg/dL VLDL Cholesterol, Calc (5.00-40.00) mg/dL HDL Cholesterol (40.00-60.00) mg/dL Urine Protein (Negative) Ur Leukocyte Esterase (Negative) Urine WBC (0-5) /hpf Urine WBC Clumps (None) /hpf Urine Bacteria (None) /hpf Urine Mucus (None) /hpf 01/10/24 01/10/24 Range/Units 05:28 07:04 RBC (3.80-5.40) m/uL Hgb (11.4-16.0) gm/dL MCV (80.0-100.0) fL APTT (22.0-30.0) sec POC Glucose (mg/dL) 159 H 148 H (70-110) mg/dL Troponin I (0.000-0.034) ng/mL Triglycerides (0.00-149.00) mg/dL Cholesterol (0.00-200.00) mg/dL VLDL Cholesterol, Calc (5.00-40.00) mg/dL HDL Cholesterol (40.00-60.00) mg/dL Urine Protein (Negative) Ur Leukocyte Esterase (Negative) Urine WBC (0-5) /hpf Urine WBC Clumps (None) /hpf Urine Bacteria (None) /hpf Urine Mucus (None) /hpf Assessment and Plan Assessment: Non-STEMI, cardiac cath showing triple-vessel coronary artery disease patient being evaluated for CABG Mild acute COPD exacerbation Bilateral internal carotid artery stenosis, right side is occluded and left- sided 50 to 69% Bilateral pulmonary nodule 9 mm Liver infiltrate, possible fatty liver, neoplasm cannot be excluded CKD stage III Asthma Hypertension Hyperlipidemia Diabetes mellitus History of PE History of stroke Plan: Continue with heparin drip Continue with gentle hydration Resume insulin and insulin sliding scale Cardiology consult Check echocardiogram Check liver ultrasound Cardiothoracic surgery evaluation for possible CABG Pulmonary service consult Labs and medication were reviewed.. Continue same treatment. Continue with symptomatic treatment. Resume home medication. Monitor labs and vitals. DVT and GI prophylaxis. Further recommendations as per clinical course of the patient DVT prophylaxis: Subcutaneous heparin GI Prophylaxis: Pepcid PT/OT: Pending Prognosis is guarded
[2024-01-10] MEDS: IPRATROPIUM-ALBUTEROL 3 ML NEB INHALATION SCH (11:28)
[2024-01-10 11:37] LABS: Glucose,Whole Blood 193 mg/dL (70-110)
[2024-01-10] MEDS: DOCUSATE 100 MG CAP PO PRN (12:07)
--- NOTE | 2024-01-10 12:13 | P.CNPUL ---
History of Present Illness Consult date: 01/10/24 Requesting physician: Claudia Zarco Reason for consult: other (Ventilator/critical care management) Chief complaint: Chest pain History of present illness: This is a very pleasant 73-year-old female patient with a history of hypertension, diabetes mellitus, anxiety, atrial fibrillation, hyperlipidemia, chronic obstructive pulmonary disease, 52-year smoking history. She had presented to [facility] with chest pain on 01/08/2024. Workup there did reveal a non-ST segment elevation myocardial infarction and she was transferred here on 01/09/2024 for further workup. Cardiac catheterization revealed coronary artery disease with 80% mid LAD lesion, 99% proximal circumflex lesion and 100% totally occluded RCA stenosis. She is being worked up for possible coronary artery bypass grafting. CT scan of the chest revealed COPD with moderate emphysema. Extensive three-vessel coronary artery calcifications. 9 mm bilateral nodularity inferior lingula. Mild to moderate apical scarring. Very heterogenous appearance to the right liver lobe may be due to fatty infiltration however neoplasm is not excluded. Carotid Doppler reveals right ICA occlusion. Flow velocities in the proximal left ICA suggesting 50 to 69% stenosis. White count 7.2. Hemoglobin 11.2. Platelets 199. Sodium 141. Potassium 4.0. Bicarb 12. BUN 35. Creatinine 1.66. Glucose 382. AST 26. ALT 11. Troponin 1.24, 1.59, 1.46. She is currently resting fairly comfortably in bed. Maintaining O2 saturations in the 90s on room air. Afebrile. Hemodynamically stable. She is continued on a heparin drip. Normal saline at 75 MLS per hour. Review of Systems REVIEW OF SYSTEMS: CONSTITUTIONAL: Denies any recent significant weight loss or weight gain. EYES: Denies change in vision. EARS, NOSE, MOUTH, THROAT: Denies headaches, denies sore throat. CARDIOVASCULAR: Positive for chest pain, no palpitations or syncopal episodes. RESPIRATORY: Denies shortness of breath, cough, congestion or hemoptysis. GASTROINTESTINAL: Denies change in appetite, denies abdominal pain GENITOURINARY: Denies hematuria, denies infections. MUSKULOSKELETAL: Denies pain, denies swelling. INTEGUMENTARY: Denies rash, denies eczema. NEUROLOGICAL: Denies recent memory loss, no recent seizure activity. PSYCHIATRIC: Denies anxiety, denies depression. HEMATOLOGIC/LYMPHATIC: Denies anemia, denies enlarged lymph nodes. Past Medical History Past Medical History: Atrial Fibrillation, Asthma, COPD, CVA/TIA, Diabetes Mellitus, Eye Disorder, Hyperlipidemia, Hypertension, Pulmonary Embolus (PE), Renal Disease Additional Past Medical History / Comment(s): vaginal dysplasia ,carotid artery blockage, kidney stones, stage 3 kidney disease, macular degeneration,. pt states had covid 2019 History of Any Multi-Drug Resistant Organisms: None Reported Past Surgical History: Appendectomy, Cholecystectomy, Tonsillectomy, Tubal Ligation Additional Past Surgical History / Comment(s): lithotripsy, elmer cataract surgery, eyelid issues, uterine laser ablation with 3 months interferon, hemorrhoidectomy, 2 C-sections, oophorectomy, carotid sx x3 Past Anesthesia/Blood Transfusion Reactions: Previous Problems w/ Anesthesia Additional Past Anesthesia/Blood Transfusion Reaction / Comment(s): takes longer time to wake up after anesthesia. request not to be yelled at to wake up Past Psychological History: Anxiety, PTSD Smoking Status: Former smoker Past Alcohol Use History: None Reported Past Drug Use History: None Reported - Past Family History Sister(s) Family Medical History: Cancer Additional Family Medical History / Comment(s): lung spread to brain Mother Family Medical History: Congestive Heart Failure (CHF), Diabetes Mellitus Father History Unknown: Yes Family Medical History: Myocardial Infarction ([place]) Medications and Allergies Home Medications Medication Instructions Recorded Confirmed Type atenoloL [Tenormin] 25 mg PO BID 04/13/15 01/09/24 History Aspirin 81 mg PO DAILY #30 chew 04/03/20 01/09/24 Rx Albuterol Inhaler [Ventolin Hfa 2 puff INHALATION RT-Q4H PRN 03/12/21 01/09/24 History Inhaler] Fluticasone Propion/Salmeterol 1 puff INHALATION RT-BID 01/09/24 01/09/24 History [Wixela 250-50 Inhub] Insulin Aspart [NovoLOG Flexpen] 14 units SQ AC-TID 01/09/24 01/09/24 History Insulin Detemir [Levemir Flexpen] 56 units SQ BID 01/09/24 01/09/24 History Levocetirizine Dihydrochloride 5 mg PO HS 01/09/24 01/09/24 History [Xyzal] Multivitamins, Thera [Multivitamin 1 tab PO DAILY 01/09/24 01/09/24 History (formulary)] Vit C/E/Zn/Coppr/Lutein/Zeaxan 1 cap PO DAILY 01/09/24 01/09/24 History [Preservision Areds 2 Softgel] Allergies Allergy/AdvReac Type Severity Reaction Status Date / Time latex Allergy Rash/Hives Verified 01/09/24 07:01 Sulfa (Sulfonamide Allergy Rash/Hives Verified 01/09/24 07:01 Antibiotics) Physical Exam Vitals: Vital Signs Temp Pulse Pulse Pulse Resp BP BP 01/10/24 11:39 76 01/10/24 11:28 76 01/10/24 11:18 77 22 114/56 01/10/24 08:18 98.1 F 82 24 181/73 01/10/24 08:17 80 01/10/24 08:02 76 01/10/24 03:16 98.0 F 73 24 139/73 01/10/24 01:34 22 01/09/24 23:30 98.2 F 71 22 117/84 01/09/24 21:00 98.2 F 91 18 156/84 01/09/24 17:35 79 20 173/77 01/09/24 16:45 76 20 169/74 01/09/24 15:25 72 20 160/75 01/09/24 15:05 74 20 167/74 01/09/24 14:35 70 20 164/69 01/09/24 14:20 72 20 147/65 01/09/24 14:05 78 20 160/97 01/09/24 13:50 76 20 148/96 01/09/24 12:10 75 18 149/73 Pulse Ox 01/10/24 11:39 01/10/24 11:28 01/10/24 11:18 94 L 01/10/24 08:18 96 01/10/24 08:17 01/10/24 08:02 92 L 01/10/24 03:16 94 L 01/10/24 01:34 01/09/24 23:30 93 L 01/09/24 21:00 97 01/09/24 17:35 96 01/09/24 16:45 95 01/09/24 15:25 94 L 01/09/24 15:05 93 L 01/09/24 14:35 93 L 01/09/24 14:20 94 L 01/09/24 14:05 92 L 01/09/24 13:50 93 L 01/09/24 12:10 94 L Intake and Output 01/09/24 01/10/24 01/10/24 22:59 06:59 14:59 Intake Total 229.210 118 Balance 229.210 118 Intake: Intake, IV Titration 111.210 Amount Heparin Sod,Pork in 0.45% 111.210 NaCl 25,000 unit In 0.45 % NaCl 1 250ml.bag @ 11. 603 UNITS/KG/HR 10 mls/hr IV .Q24H [facility] Rx#: [id number] Oral 118 118 Other: Voiding Method Toilet Toilet Toilet # Voids 0 3 # Bowel Movements 0 0 Weight 86.183 kg 80.9 kg GENERAL EXAM: Alert, pleasant 73-year-old female, on room air, comfortable in no apparent distress. HEAD: Normocephalic. EYES: Normal reaction of pupils, equal size. NOSE: Clear with pink turbinates. THROAT: No erythema or exudates. NECK: No masses, no JVD. CHEST: No chest wall deformity. LUNGS: Equal air entry with no crackles, wheeze, rhonchi or dullness. CVS: S1 and S2 normal with no audible murmur, regular rhythm. ABDOMEN: No hepatosplenomegaly, normal bowel sounds, no guarding or rigidity. SPINE: No scoliosis or deformity SKIN: No rashes CENTRAL NERVOUS SYSTEM: No focal deficits, tone is normal in all 4 extremities. EXTREMITIES: There is no peripheral edema. No clubbing, no cyanosis. Peripheral pulses are intact. Results - Laboratory Findings CBC and BMP: 01/10/24 05:09 01/09/24 03:37 PT/INR, D-dimer PT 10.9 sec (10.0-12.5) 01/09/24 03:37 INR 1.0 (<1.2) 01/09/24 03:37 Abnormal lab findings: Abnormal Labs 01/09/24 01/09/24 01/09/24 03:37 03:37 03:37 RBC Hgb MCV 101.6 H APTT 121.7 H* Chloride 110 H Carbon Dioxide 12 L BUN 35 H Creatinine 1.66 H Glucose 382 H POC Glucose (mg/dL) Alkaline Phosphatase 136 H Troponin I Triglycerides Cholesterol VLDL Cholesterol, Calc HDL Cholesterol Lipase 369 H Urine Protein Ur Leukocyte Esterase Urine WBC Urine WBC Clumps Urine Bacteria Urine Mucus 01/09/24 01/09/24 01/09/24 03:37 03:37 07:38 RBC Hgb MCV APTT Chloride Carbon Dioxide BUN Creatinine Glucose POC Glucose (mg/dL) Alkaline Phosphatase Troponin I 1.240 H* 1.590 H* Triglycerides 588.00 H Cholesterol 229.00 H VLDL Cholesterol, Calc 117.60 H HDL Cholesterol 34.30 L Lipase Urine Protein Ur Leukocyte Esterase Urine WBC Urine WBC Clumps Urine Bacteria Urine Mucus 01/09/24 01/09/24 01/09/24 10:37 10:37 15:52 RBC Hgb MCV APTT 47.1 H Chloride Carbon Dioxide BUN Creatinine Glucose POC Glucose (mg/dL) 406 H Alkaline Phosphatase Troponin I 1.460 H* Triglycerides Cholesterol VLDL Cholesterol, Calc HDL Cholesterol Lipase Urine Protein Ur Leukocyte Esterase Urine WBC Urine WBC Clumps Urine Bacteria Urine Mucus 01/09/24 01/09/24 01/09/24 20:18 21:20 21:25 RBC Hgb MCV APTT 35.0 H Chloride Carbon Dioxide BUN Creatinine Glucose POC Glucose (mg/dL) 168 H Alkaline Phosphatase Troponin I Triglycerides Cholesterol VLDL Cholesterol, Calc HDL Cholesterol Lipase Urine Protein 1+ H Ur Leukocyte Esterase Large H Urine WBC 68 H Urine WBC Clumps Few H Urine Bacteria Occasional H Urine Mucus Rare H 01/10/24 01/10/24 01/10/24 05:09 05:09 05:28 RBC 3.52 L Hgb 11.2 L MCV 100.8 H APTT 49.3 H Chloride Carbon Dioxide BUN Creatinine Glucose POC Glucose (mg/dL) 159 H Alkaline Phosphatase Troponin I Triglycerides Cholesterol VLDL Cholesterol, Calc HDL Cholesterol Lipase Urine Protein Ur Leukocyte Esterase Urine WBC Urine WBC Clumps Urine Bacteria Urine Mucus 01/10/24 01/10/24 07:04 11:35 RBC Hgb MCV APTT Chloride Carbon Dioxide BUN Creatinine Glucose POC Glucose (mg/dL) 148 H 193 H Alkaline Phosphatase Troponin I Triglycerides Cholesterol VLDL Cholesterol, Calc HDL Cholesterol Lipase Urine Protein Ur Leukocyte Esterase Urine WBC Urine WBC Clumps Urine Bacteria Urine Mucus - Diagnostic Findings Chest x-ray: image reviewed CT scan - chest: image reviewed Assessment and Plan Assessment: Non-ST segment elevation myocardial infarction, severe triple-vessel disease including an 80% stenosis at the mid LAD, 99% proximal circumflex stenosis and 100% subtotally occluded RCA. Plan is for coronary revascularization surgery Acute kidney injury Hyperlipidemia Hypertension Diabetes mellitus Chronic obstructive pulmonary disease. FEV1 value 1.5 L / 52% of predicted Chronic tobacco dependence of 52 years, quit 10 years ago Right internal carotid artery occlusion Chronic kidney disease, stage III History of anxiety/PTSD Plan: The patient was seen and evaluated CT scan of the chest, labs and medications reviewed Bedside spirometry, chest x-ray reviewed Based on the FEV1 value the patient is at low operative risk Continue DuoNeb inhalations, Symbicort Educated regarding the use of the incentive spirometer Remains on a heparin drip Further workup pending per CT services We will continue to follow and make further recommendations based on her clinical status I have personally seen and examined the patient, performed the documentation and the assessment and plan as written. Number of minutes spent on the visit: 20.
--- NOTE | 2024-01-10 12:32 | CA ---
Transthoracic Echo Report Name: Mansi Carolina Age: 73 Gender: F : 1950 Exam Date: 01/10/2024 09:14 Exam Location: [place] [facility] Ht (in): 65 Wt (lb): 190 Ordering Physician: Kyler Schuster MD Attending/Referring Phys: Rolling Machine Operator Automatic Luma Sullivan RDCS Procedure CPT: Indications: nstemi Cardiac Hx: Technical Quality: Fair Contrast 1: Total Dose (mL): Contrast 2: Total Dose (mL): MEASUREMENTS (Male / Female) Normal Values 2D ECHO LV Diastolic Diameter PLAX 4.1 cm 4.2 - 5.9 / 3.9 - 5.3 cm LV Systolic Diameter PLAX 2.7 cm IVS Diastolic Thickness 1.1 cm 0.6 - 1.0 / 0.6 - 0.9 cm LVPW Diastolic Thickness 1.2 cm 0.6 - 1.0 / 0.6 - 0.9 cm LV Relative Wall Thickness 0.6 RV Internal Dim ED PLAX 3.5 cm LA Systolic Diameter LX 3.7 cm 3.0 - 4.0 / 2.7 - 3.8 cm LV Diastolic Volume MOD BP 100.3 cm??? 67 - 155 / 56 - 104 cm??? LV Systolic Volume MOD BP 37.8 cm??? 22 - 58 / 19 - 49 cm??? LV Ejection Fraction MOD BP 62.3 % >= 55 % LV Cardiac Index MOD BP 2322.4 cm???/min???m??? LV Diastolic Volume MOD 4C 107.2 cm??? LV Systolic Volume MOD 4C 43.9 cm??? LV Ejection Fraction MOD 4C 59.1 % LV Cardiac Index MOD 4C 2354.9 cm???/min???m??? LV Diastolic Length 4C 8.0 cm LV Systolic Length 4C 6.8 cm LV Diastolic Volume MOD 2C 82.5 cm??? LV Systolic Volume MOD 2C 31.3 cm??? LV Ejection Fraction MOD 2C 62.1 % LV Cardiac Index MOD 2C 1903.8 cm???/min???m??? LV Diastolic Length 2C 6.9 cm LV Systolic Length 2C 6.5 cm LA Volume 68.2 cm??? 18 - 58 / 22 - 52 cm??? LA Volume Index 33.8 cm???/m??? 16 - 28 cm???/m??? M-MODE Aortic Root Diameter MM 2.9 cm AV Cusp Separation MM 2.0 cm DOPPLER AV Peak Velocity 206.2 cm/s AV Peak Gradient 17.0 mmHg AV Mean Velocity 149.1 cm/s AV Mean Gradient 9.6 mmHg AV Velocity Time Integral 44.8 cm MV Area PHT 4.8 cm??? Mitral E Point Velocity 104.9 cm/s Mitral A Point Velocity 138.6 cm/s Mitral E to A Ratio 0.8 MV Deceleration Time 156.7 ms TR Peak Velocity 315.3 cm/s TR Peak Gradient 39.8 mmHg Right Ventricular Systolic Press 44.8 mmHg FINDINGS Left Ventricle Left ventricular ejection fraction is estimated at 55-60 %. Left ventricular cavity size normal. Mildly increased septal wall thickness. Mildly increased posterior wall thickness. No obvious regional wall motion abnormalities. Right Ventricle Mild right ventricular dilatation. Moderate pulmonary hypertension. Right Atrium Normal right atrial size. No right atrial thrombus or mass seen. Left Atrium Mildly increased left atrial volume. Mildly increased left atrial area. Mitral Valve Structurally normal mitral valve. Mild mitral regurgitation. Aortic Valve Trileaflet aortic valve. No aortic valve stenosis or regurgitation. Tricuspid Valve Structurally normal tricuspid valve. Mild tricuspid regurgitation. Pulmonic Valve Structurally normal pulmonic valve. No pulmonic regurgitation. Pericardium No pericardial effusion. No pleural effusion. Aorta Normal size aortic root and proximal ascending aorta. CONCLUSIONS Left ventricular ejection fraction 55-60% Mildly increased left ventricular wall thickness RVSP 44 Mildly dilated left atrium Mild mitral regurgitation Mild tricuspid regurgitation Previewed by: Dr. Guzman Hahn DO (Electronically Signed) Final Date: 10 January 2024 12:31
--- NOTE | 2024-01-10 16:04 | P.PN ---
Subjective Progress Note Date: 01/10/24 HISTORY OF PRESENTING ILLNESS This is a pleasant 73-year-old with past medical history significant for hyp ertension, hyperlipidemia, diabetes mellitus type 2, carotid artery disease, chronic kidney disease. She does not follow with a fence rider. She has strong family history of CAD with everyone in her family dying from heart disease. She was a prior smoker however quit 10-20 years ago. She has not seen a fence rider. She also has asthma and takes inhalers. Over last 1-2 months she has been having frequent episodes of chest pain and dyspnea with minimal exertion. She would take an inhaler or take a hot shower and it would usually improved. She was attributed this to asthma. She has more significant episode yesterday where symptoms did not improve and had persistent chest pain until she went to [facility] and was given nitro and morphine with improvement in her pain. She states currently her chest pain is completely resolved. Troponins elevated at 1.2, 1.5. Creatinine is 1.6 which appears at her baseline 1.5-1.7 per history. 01/09 She is status post left heart cath 01/09/2024 which revealed CAD including 80% mid LAD, 99% proximal circumflex and 100% subtotally occluded RCA stenosis, LVEDP was 27. She was referred for surgical evaluation for CABG however, she was deemed to be high risk and was recommended for PCI versus medical management. Echocardiogram shows EF 55-60%, RVSP 44. Carotid ultrasound showed right ICA occlusion and left ICA 50-69% stenosis. She denies any chest pain, reports her shortness of breath is better. PHYSICAL EXAMINATION Vital signs reviewed. CONSTITUTIONAL: No apparent distress. HEENT: Head is normocephalic. Pupils are equal, round. Sclerae anicteric. Mucous membranes of the mouth are moist. No JVD. No carotid bruit. CHEST EXAMINATION: Lungs are clear to auscultation. No chest wall tenderness is noted on palpation or with deep breathing. HEART EXAMINATION: Regular rate and rhythm. S1, S2 heard. No murmurs, gallops or rub. ABDOMEN: Soft, nontender. Positive bowel sounds. EXTREMITIES: 2+ peripheral pulses, no lower extremity edema and no calf tenderness. NEUROLOGIC EXAMINATION: Patient is awake, alert and oriented x3. ASSESSMENT NSTEMI with type I etiology Chest pain, dyspnea with exertion consistent with angina Diabetes mellitus type 2 Hypertension Hyperlipidemia Carotid artery disease Family history of CAD Remote tobacco abuse Asthma PLAN She was deemed high risk for CABG. We discussed further management with PCI versus medical management. Will likely plan for PCI on Friday. Continue to monitor kidney function. DC IV fluid. LDL is 127, discussed the importance of cholesterol management. Would recommend starting Zetia as well as low-dose statin to see if she is able to tolerate this as she apparently has not tolerated statins in the past. We will follow. Patient seen and examined in rounds with Dr. Hahn, plan of care agreed upon. Objective - Vital Signs Vital signs: Vital Signs Temp 98.1 F 01/10/24 08:18 Pulse 77 01/10/24 14:07 Resp 22 01/10/24 11:18 BP 114/56 01/10/24 11:18 Pulse Ox 94 L 01/10/24 11:18 FiO2 Intake & Output 01/09/24 01/10/24 01/10/24 18:59 06:59 18:59 Intake Total 397.453 31.757 118 Balance 397.453 31.757 118 Weight 86.183 kg 80.9 kg Intake: IV 200 Intake, IV Titration 79.453 31.757 Amount Heparin Sod,Pork in 0.45% 79.453 31.757 NaCl 25,000 unit In 0.45 % NaCl 1 250ml.bag @ 11. 603 UNITS/KG/HR 10 mls/hr IV .Q24H [facility] Rx#: [id number] Oral 118 118 Other: Voiding Method Toilet Toilet # Voids 1 3 2 # Bowel Movements 0 - Labs CBC & Chem 7: 01/10/24 05:09 01/09/24 03:37 Labs: Abnormal Lab Results - Last 24 Hours (Table) 01/09/24 01/09/24 01/09/24 Range/Units 03:37 15:52 20:18 RBC (3.80-5.40) m/uL Hgb (11.4-16.0) gm/dL MCV (80.0-100.0) fL APTT (22.0-30.0) sec POC Glucose (mg/dL) 406 H 168 H (70-110) mg/dL Triglycerides 588.00 H (0.00-149.00) mg/dL Cholesterol 229.00 H (0.00-200.00) mg/dL VLDL Cholesterol, Calc 117.60 H (5.00-40.00) mg/dL HDL Cholesterol 34.30 L (40.00-60.00) mg/dL Urine Protein (Negative) Ur Leukocyte Esterase (Negative) Urine WBC (0-5) /hpf Urine WBC Clumps (None) /hpf Urine Bacteria (None) /hpf Urine Mucus (None) /hpf 01/09/24 01/09/24 01/10/24 Range/Units 21:20 21:25 05:09 RBC 3.52 L (3.80-5.40) m/uL Hgb 11.2 L (11.4-16.0) gm/dL MCV 100.8 H (80.0-100.0) fL APTT 35.0 H (22.0-30.0) sec POC Glucose (mg/dL) (70-110) mg/dL Triglycerides (0.00-149.00) mg/dL Cholesterol (0.00-200.00) mg/dL VLDL Cholesterol, Calc (5.00-40.00) mg/dL HDL Cholesterol (40.00-60.00) mg/dL Urine Protein 1+ H (Negative) Ur Leukocyte Esterase Large H (Negative) Urine WBC 68 H (0-5) /hpf Urine WBC Clumps Few H (None) /hpf Urine Bacteria Occasional H (None) /hpf Urine Mucus Rare H (None) /hpf 01/10/24 01/10/24 01/10/24 Range/Units 05:09 05:28 07:04 RBC (3.80-5.40) m/uL Hgb (11.4-16.0) gm/dL MCV (80.0-100.0) fL APTT 49.3 H (22.0-30.0) sec POC Glucose (mg/dL) 159 H 148 H (70-110) mg/dL Triglycerides (0.00-149.00) mg/dL Cholesterol (0.00-200.00) mg/dL VLDL Cholesterol, Calc (5.00-40.00) mg/dL HDL Cholesterol (40.00-60.00) mg/dL Urine Protein (Negative) Ur Leukocyte Esterase (Negative) Urine WBC (0-5) /hpf Urine WBC Clumps (None) /hpf Urine Bacteria (None) /hpf Urine Mucus (None) /hpf 01/10/24 Range/Units 11:35 RBC (3.80-5.40) m/uL Hgb (11.4-16.0) gm/dL MCV (80.0-100.0) fL APTT (22.0-30.0) sec POC Glucose (mg/dL) 193 H (70-110) mg/dL Triglycerides (0.00-149.00) mg/dL Cholesterol (0.00-200.00) mg/dL VLDL Cholesterol, Calc (5.00-40.00) mg/dL HDL Cholesterol (40.00-60.00) mg/dL Urine Protein (Negative) Ur Leukocyte Esterase (Negative) Urine WBC (0-5) /hpf Urine WBC Clumps (None) /hpf Urine Bacteria (None) /hpf Urine Mucus (None) /hpf
--- NOTE | 2024-01-10 16:08 | US ---
EXAMINATION TYPE: US arterial LE single level Exam done portable DATE OF EXAM: 01/09/2024 9:10 PM CLINICAL INDICATION: Female, 73 years old with history of Ankle Brachial Index (AI) ; Doppler Waveforms: Right: Monophasic Left: Monophasic Pressure Gradients: Right Brachial Pressure: deferred due to recent heart cath Left Brachial Pressure: 170 Ankle-Brachial Indices: Right: 0.54 Left: 0.51 (Vessel hardening > 1.4; Normal 0.9 - 1.4, Moderate 0.7 - 0.9, Severe 0.5-0.7) IMPRESSION: Severe bilateral peripheral vascular disease.
[2024-01-10 16:56] LABS: Glucose,Whole Blood 256 mg/dL (70-110)
[2024-01-10] MEDS: EZETIMIBE 10 MG TAB PO SCH (17:08)
[2024-01-10 18:46] LABS: ALT 10 U/L (4-34); AST 32 U/L (14-36); African American GFR (CKD) 40 (>60 ml/min/1.73 sqM); Albumin 3.2 g/dL (3.5-5.0); Alkaline Phosphatase 87 U/L (38-126); Anion Gap 8 mmol/L; Blood Urea Nitrogen 30 mg/dL (7-17); Calcium 8.3 mg/dL (8.4-10.2); Carbon Dioxide 18 mmol/L (22-30); Chloride 114 mmol/L (98-107); Glucose 161 mg/dL (74-99); Non-African American GFR(CKD) 34 (>60 ml/min/1.73 sqM); Potassium 4.8 mmol/L (3.5-5.1); Sodium 140 mmol/L (137-145); Total Bilirubin 0.3 mg/dL (0.2-1.3); Total Protein 5.8 g/dL (6.3-8.2)
[2024-01-10 20:15] LABS: Glucose,Whole Blood 213 mg/dL (70-110)
[2024-01-10] MEDS: SYMBICORT 160-4.5 MCG INHALER INHALATION SCH (21:32)
[2024-01-11] MEDS: ATORVASTATIN 10 MG TAB PO SCH (07:42)
[2024-01-11 08:02] LABS: HCT 33.1 % (34.0-46.0); MCH 32.7 pg (25.0-35.0); MCHC 33.2 g/dL (31.0-37.0); MCV 98.4 fL (80.0-100.0); Mean Platelet Volume 8.8; Platelet Count 187 k/uL (150-450); RBC 3.36 m/uL (3.80-5.40); RDW 14.6 % (11.5-15.5); WBC 6.3 k/uL (3.8-10.6)
[2024-01-11 08:16] LABS: Glucose,Whole Blood 144 mg/dL (70-110)
[2024-01-11 08:45] LABS: African American GFR (CKD) 40 (>60 ml/min/1.73 sqM); Anion Gap 6 mmol/L; Blood Urea Nitrogen 23 mg/dL (7-17); Calcium 8.7 mg/dL (8.4-10.2); Carbon Dioxide 20 mmol/L (22-30); Chloride 114 mmol/L (98-107); Glucose 141 mg/dL (74-99); Non-African American GFR(CKD) 35 (>60 ml/min/1.73 sqM); Potassium 4.1 mmol/L (3.5-5.1); Sodium 140 mmol/L (137-145)
--- NOTE | 2024-01-11 10:29 | P.PN ---
Subjective Progress Note Date: 01/11/24 Principal diagnosis: Chest pain. This is a very pleasant 73-year-old female patient with a history of hypertension, diabetes mellitus, anxiety, atrial fibrillation, hyperlipidemia, chronic obstructive pulmonary disease, 52-year smoking history. She had presented to [facility] with chest pain on 01/08/2024. Workup there did reveal a non-ST segment elevation myocardial infarction and she was transferred here on 01/09/2024 for further workup. Cardiac catheterization revealed coronary artery disease with 80% mid LAD lesion, 99% proximal circumflex lesion and 100% totally occluded RCA stenosis. She is being worked up for possible coronary artery bypass grafting. CT scan of the chest revealed COPD with moderate emphysema. Extensive three-vessel coronary artery calcifications. 9 mm bilateral nodularity inferior lingula. Mild to moderate apical scarring. Very heterogenous appearance to the right liver lobe may be due to fatty infiltration however neoplasm is not excluded. Carotid Doppler reveals right ICA occlusion. Flow velocities in the proximal left ICA suggesting 50 to 69% stenosis. White count 7.2. Hemoglobin 11.2. Platelets 199. Sodium 141. Potassium 4.0. Bicarb 12. BUN 35. Creatinine 1.66. Glucose 382. AST 26. ALT 11. Troponin 1.24, 1.59, 1.46. She is currently resting fairly comfortably in bed. Maintaining O2 saturations in the 90s on room air. Afebrile. Hemodynamically stable. She is continued on a heparin drip. Normal saline at 75 MLS per hour. Progress note dated January 11, 2024. The patient is seen today again in room 371. The patient was found to have multivessel coronary artery disease, and was admitted with a non-ST segment elevation myocardial infarction. The patient is currently being evaluated by [facility] for bypass surgery. A date has not yet been set. Currently, the patient is on room air. The patient denies any shortness of breath or difficulty breathing. She is receiving IV heparin. Current laboratory data includes a white count 6.3, hemoglobin 11, hematocrit 33.1, and platelet count 187,000. PTT is 41.2. Sodium 140, potassium 4.1, chloride 114, CO2 20, BUN 23, creatinine 1.46, and glucose 144. Objective - Vital Signs Vital signs: Vital Signs Temp 97.8 F 01/11/24 07:31 Pulse 72 01/11/24 08:43 Resp 20 01/11/24 07:31 BP 172/79 01/11/24 07:31 Pulse Ox 98 01/11/24 08:31 FiO2 Intake & Output 01/10/24 01/11/24 01/11/24 18:59 06:59 18:59 Intake Total 393.883 155.447 Balance 393.883 155.447 Weight 80.8 kg Intake: Intake, IV Titration 157.883 155.447 Amount Heparin Sod,Pork in 0.45% 157.883 155.447 NaCl 25,000 unit In 0.45 % NaCl 1 250ml.bag @ 11. 603 UNITS/KG/HR 10 mls/hr IV .Q24H [facility] Rx#: [id number] Oral 236 Other: Voiding Method Toilet Toilet Toilet # Voids 2 1 # Bowel Movements 0 - Exam No acute distress, oriented 3. Currently on room air. HEENT examination is grossly unremarkable. Mucous membranes are moist. No oral lesions. Neck supple. Full range of motion. No adenopathy thyromegaly or neck vein distention. Cardiovascular examination reveals regular rhythm rate. S1-S2 normal. No S3 or S4. No discernible murmur noted. Heart rate 72 bpm. Lungs reveal clear breath sounds. Breath sounds are equal bilaterally. No adventitious lung sounds including wheezes rhonchi or crackles. Room air saturation is 98%. Abdomen soft bowel sounds are heard. No masses or tenderness. Extremities are intact. No cyanosis clubbing or edema. Skin is without rash or lesion. Neurologic examination is brief but nonfocal. - Labs CBC & Chem 7: 01/11/24 07:00 01/11/24 07:00 Labs: Abnormal Lab Results - Last 24 Hours (Table) 01/09/24 01/10/24 01/10/24 Range/Units 03:37 05:09 11:35 RBC (3.80-5.40) m/uL Hgb (11.4-16.0) gm/dL Hct (34.0-46.0) % APTT (22.0-30.0) sec Chloride 114 H (98-107) mmol/L Carbon Dioxide 18 L (22-30) mmol/L BUN 30 H (7-17) mg/dL Creatinine 1.48 H (0.52-1.04) mg/dL Glucose 161 H (74-99) mg/dL POC Glucose (mg/dL) 193 H (70-110) mg/dL Hemoglobin A1c 9.4 H (<=6.0) % Calcium 8.3 L (8.4-10.2) mg/dL Total Protein 5.8 L (6.3-8.2) g/dL Albumin 3.2 L (3.5-5.0) g/dL 01/10/24 01/10/24 01/11/24 Range/Units 16:54 20:14 07:00 RBC (3.80-5.40) m/uL Hgb (11.4-16.0) gm/dL Hct (34.0-46.0) % APTT 41.2 H (22.0-30.0) sec Chloride (98-107) mmol/L Carbon Dioxide (22-30) mmol/L BUN (7-17) mg/dL Creatinine (0.52-1.04) mg/dL Glucose (74-99) mg/dL POC Glucose (mg/dL) 256 H 213 H (70-110) mg/dL Hemoglobin A1c (<=6.0) % Calcium (8.4-10.2) mg/dL Total Protein (6.3-8.2) g/dL Albumin (3.5-5.0) g/dL 01/11/24 01/11/24 01/11/24 Range/Units 07:00 07:00 08:14 RBC 3.36 L (3.80-5.40) m/uL Hgb 11.0 L (11.4-16.0) gm/dL Hct 33.1 L (34.0-46.0) % APTT (22.0-30.0) sec Chloride 114 H (98-107) mmol/L Carbon Dioxide 20 L (22-30) mmol/L BUN 23 H (7-17) mg/dL Creatinine 1.46 H (0.52-1.04) mg/dL Glucose 141 H (74-99) mg/dL POC Glucose (mg/dL) 144 H (70-110) mg/dL Hemoglobin A1c (<=6.0) % Calcium (8.4-10.2) mg/dL Total Protein (6.3-8.2) g/dL Albumin (3.5-5.0) g/dL Assessment and Plan Assessment: Non-ST segment elevation myocardial infarction, severe triple-vessel disease including an 80% stenosis at the mid LAD, 99% proximal circumflex stenosis and 100% subtotally occluded RCA. Acute kidney injury. Hyperlipidemia. Hypertension. Diabetes mellitus. Chronic obstructive pulmonary disease. FEV1 value 1.5 L / 52% of predicted. Chronic tobacco dependence of 52 years, quit 10 years ago. Right internal carotid artery occlusion. Chronic kidney disease, stage III. History of anxiety/PTSD. Plan: Plan dated January 11, 2024. The patient is currently seen in room 371. She is on room air. She is being evaluated for possible bypass surgery, by cardiothoracic surgery. Based on her FEV1, she is in the low increased operative risk range. She continues on updrafts, and Symbicort. We also instructed her about the important use of the incentive spirometer. Labs, x-rays, medications are reviewed. We will continue to follow the patient. Prognosis is guarded. Time with Patient: Less than 30
[2024-01-11 11:28] LABS: Glucose,Whole Blood 173 mg/dL (70-110)
[2024-01-11] MEDS ORDERED: CLOPIDOGREL 75 MG TAB PO STA (14:19)
--- NOTE | 2024-01-11 14:48 | P.PN ---
Subjective Progress Note Date: 01/11/24 HISTORY OF PRESENTING ILLNESS This is a pleasant 73-year-old with past medical history significant for hyp ertension, hyperlipidemia, diabetes mellitus type 2, carotid artery disease, chronic kidney disease. She does not follow with a germ drier. She has strong family history of CAD with everyone in her family dying from heart disease. She was a prior smoker however quit 10-20 years ago. She has not seen a germ drier. She also has asthma and takes inhalers. Over last 1-2 months she has been having frequent episodes of chest pain and dyspnea with minimal exertion. She would take an inhaler or take a hot shower and it would usually improved. She was attributed this to asthma. She has more significant episode yesterday where symptoms did not improve and had persistent chest pain until she went to [facility] and was given nitro and morphine with improvement in her pain. She states currently her chest pain is completely resolved. Troponins elevated at 1.2, 1.5. Creatinine is 1.6 which appears at her baseline 1.5-1.7 per history. 01/09 She is status post left heart cath 01/09/2024 which revealed CAD including 80% mid LAD, 99% proximal circumflex and 100% subtotally occluded RCA stenosis, LVEDP was 27. She was referred for surgical evaluation for CABG however, she was deemed to be high risk and was recommended for PCI versus medical management. Echocardiogram shows EF 55-60%, RVSP 44. Carotid ultrasound showed right ICA occlusion and left ICA 50-69% stenosis. She denies any chest pain, reports her shortness of breath is better. 01/10 She had 1 brief episode of "chest irritation". Shortness of breath stable. PHYSICAL EXAMINATION Vital signs reviewed. CONSTITUTIONAL: No apparent distress. HEENT: Head is normocephalic. Pupils are equal, round. Sclerae anicteric. Mucous membranes of the mouth are moist. No JVD. No carotid bruit. CHEST EXAMINATION: Lungs are clear to auscultation. No chest wall tenderness is noted on palpation or with deep breathing. HEART EXAMINATION: Regular rate and rhythm. S1, S2 heard. No murmurs, gallops or rub. ABDOMEN: Soft, nontender. Positive bowel sounds. EXTREMITIES: 2+ peripheral pulses, no lower extremity edema and no calf tenderness. NEUROLOGIC EXAMINATION: Patient is awake, alert and oriented x3. ASSESSMENT NSTEMI with type I etiology CAD including 80% mid LAD, 99% proximal circumflex and 100% subtotally occluded RCA stenosis Chest pain, dyspnea with exertion consistent with angina Diabetes mellitus type 2 Hypertension Hyperlipidemia Carotid artery disease Family history of CAD Remote tobacco abuse Asthma PLAN She was deemed high risk for CABG. We discussed further management with PCI versus medical management. Will plan for PCI on Thursday 01/11, likely between noon and 3, she can have a light breakfast then n.p.o. Loaded with 600 mg of Plavix tonight. Continue to monitor kidney function. LDL is 127, discussed the importance of cholesterol management. Would recommend starting Zetia as well as low-dose statin to see if she is able to tolerate this as she apparently has not tolerated statins in the past. We will follow. Patient seen and examined in rounds with Dr. Hahn, plan of care agreed upon. Objective - Vital Signs Vital signs: Vital Signs Temp 97.8 F 01/11/24 07:31 Pulse 79 01/11/24 13:13 Resp 24 01/11/24 11:39 BP 114/71 01/11/24 11:39 Pulse Ox 96 01/11/24 11:39 FiO2 Intake & Output 01/10/24 01/11/24 01/11/24 18:59 06:59 18:59 Intake Total 393.883 375.447 Balance 393.883 375.447 Weight 80.8 kg Intake: Intake, IV Titration 157.883 155.447 Amount Heparin Sod,Pork in 0.45% 157.883 155.447 NaCl 25,000 unit In 0.45 % NaCl 1 250ml.bag @ 11. 603 UNITS/KG/HR 10 mls/hr IV .Q24H [facility] Rx#: [id number] Oral 236 220 Other: Voiding Method Toilet Toilet Toilet # Voids 2 1 2 # Bowel Movements 0 - Labs CBC & Chem 7: 01/11/24 07:00 01/11/24 07:00 Labs: Abnormal Lab Results - Last 24 Hours (Table) 01/09/24 01/10/24 01/10/24 Range/Units 03:37 05:09 16:54 RBC (3.80-5.40) m/uL Hgb (11.4-16.0) gm/dL Hct (34.0-46.0) % APTT (22.0-30.0) sec Chloride 114 H (98-107) mmol/L Carbon Dioxide 18 L (22-30) mmol/L BUN 30 H (7-17) mg/dL Creatinine 1.48 H (0.52-1.04) mg/dL Glucose 161 H (74-99) mg/dL POC Glucose (mg/dL) 256 H (70-110) mg/dL Hemoglobin A1c 9.4 H (<=6.0) % Calcium 8.3 L (8.4-10.2) mg/dL Total Protein 5.8 L (6.3-8.2) g/dL Albumin 3.2 L (3.5-5.0) g/dL 01/10/24 01/11/24 01/11/24 Range/Units 20:14 07:00 07:00 RBC 3.36 L (3.80-5.40) m/uL Hgb 11.0 L (11.4-16.0) gm/dL Hct 33.1 L (34.0-46.0) % APTT 41.2 H (22.0-30.0) sec Chloride (98-107) mmol/L Carbon Dioxide (22-30) mmol/L BUN (7-17) mg/dL Creatinine (0.52-1.04) mg/dL Glucose (74-99) mg/dL POC Glucose (mg/dL) 213 H (70-110) mg/dL Hemoglobin A1c (<=6.0) % Calcium (8.4-10.2) mg/dL Total Protein (6.3-8.2) g/dL Albumin (3.5-5.0) g/dL 01/11/24 01/11/24 01/11/24 Range/Units 07:00 08:14 11:27 RBC (3.80-5.40) m/uL Hgb (11.4-16.0) gm/dL Hct (34.0-46.0) % APTT (22.0-30.0) sec Chloride 114 H (98-107) mmol/L Carbon Dioxide 20 L (22-30) mmol/L BUN 23 H (7-17) mg/dL Creatinine 1.46 H (0.52-1.04) mg/dL Glucose 141 H (74-99) mg/dL POC Glucose (mg/dL) 144 H 173 H (70-110) mg/dL Hemoglobin A1c (<=6.0) % Calcium (8.4-10.2) mg/dL Total Protein (6.3-8.2) g/dL Albumin (3.5-5.0) g/dL Microbiology - Last 24 Hours (Table) 01/09/24 21:17 Nasal Screen MRSA/MSSA - Final Nasal Swab 01/09/24 21:20 Urine Culture - Preliminary Urine,Voided Gram Neg Bacilli
[2024-01-11 16:30] LABS: Glucose,Whole Blood 220 mg/dL (70-110)
--- NOTE | 2024-01-11 19:28 | US ---
EXAMINATION TYPE: US liver DATE OF EXAM: 01/11/2024 COMPARISON: CT 01/09/2024 CLINICAL INDICATION: Female, 73 years old with history of Fatty liver. Neoplasm cannot be excluded; Hx IBS, Enlarged liver, and Cholecystectomy TECHNIQUE: Multiple sonographic images of the right upper quadrant are obtained. FINDINGS: EXAM MEASUREMENTS: Liver Length: 17.4 cm Gallbladder Wall: Surgically absent cm CBD: 0.5 cm Right Kidney: 9.6 x 6.2 x 4.9 cm cm [employer] NOTES: Pancreas: Tail obscured by overlying bowel gas Liver: Heterogenous and lobular with increased attenuation Gallbladder: Surgically absent; bowel seen within the gallbladder fossa as seen on CT. Evidence for sonographic Patel's sign: No CBD: wnl Right Kidney: wnl IMPRESSION: 1. Heterogenous appearance of the liver when comparing to prior CT. Further evaluation with MRI live r mass protocol recommended to rule out underlying malignancy. 2. Hepatic steatosis.
[2024-01-11 20:02] LABS: Glucose,Whole Blood 190 mg/dL (70-110)
[2024-01-11] MEDS: CLOPIDOGREL 75 MG TAB PO ONE (20:35)
--- NOTE | 2024-01-11 21:44 | P.PN ---
Subjective This is a pleasant 33 years old female with past medical history of multiple medical problems as below. She was transferred from [facility] for chest pain and diagnosed today with non-STEMI. Patient has been having breathing difficulty even with exertional thought This is related to her lung disease as she has a history of both asthma and COPD as she explains but she is not on home oxygen and she follow-up with gasoline finisher but she could not remember his name But also patient was complaining from severe crushing chest pain about 10/10 when it started on the left side, nonradiating, no relieving or precipitating factors and no associated coughing. Her chest pain now feels mild after she received treatment in the emergency room Patient denies any other GI urinary symptoms, no headache dizziness weakness or numbness. She quit smoking about 15 years ago with no alcohol or illicit drugs. Vital stable CBC, INR unremarkable Creatinine 1.6 which is at baseline of 1.4-1.7 elevated. Glucose was elevated, Troponin are elevated 1.2 and 1.5 Lipase 369 EKG showing sinus rhythm at [address]-T changes Echocardiogram is ordered 01/10/2024 Patient underwent cardiac cath yesterday showing triple-vessel coronary artery disease, LAD 80%, left circumflex 99% and RCA is completely occluded 100% Cardiothoracic surgery are consulted for CABG evaluation. CT of the chest was done showing COPD with emphysema with bilateral pulmonary nodule [address] scan follow-up in 3 months also with some liver infiltrate which could be fatty continue plastic on the recommended liver ultrasound to be followed by CT/MRI. Patient remains on heparin drip currently She was very anxious this morning and Xanax helped her Also she has some tachypnea with limited air entry on both sides most likely related to her acute COPD exacerbation, pulmonary team were consulted and will address this. She is also on her home dose of aspirin 81 mg. She is still on heparin drip and aspirin 81 mg 01/11/2024 Patient mildly tachypneic but no chest pain She looks tired and lethargic Her urine culture came back positive for gram-negative bacilli Patient started on ceftriaxone for acute urinary tract infection Patient s/p cardiac cath showing triple-vessel coronary artery disease however patient is found a poor candidate for CABG Alternatively patient is going for stent placement tomorrow morning/afternoon She is still on heparin drip and aspirin 81 mg Objective - Vital Signs Vital signs: Vital Signs Temp 98.6 F 01/11/24 15:48 Pulse 68 01/11/24 16:09 Resp 20 01/11/24 15:48 BP 152/76 01/11/24 15:48 Pulse Ox 94 L 01/11/24 15:48 FiO2 Intake & Output 01/10/24 01/11/24 01/11/24 18:59 06:59 18:59 Intake Total 393.883 455.080 Balance 393.883 455.080 Weight 80.8 kg Intake: Intake, IV Titration 157.883 235.080 Amount Heparin Sod,Pork in 0.45% 157.883 235.080 NaCl 25,000 unit In 0.45 % NaCl 1 250ml.bag @ 11. 603 UNITS/KG/HR 10 mls/hr IV .Q24H [facility] Rx#: [id number] Oral 236 220 Other: Voiding Method Toilet Toilet Toilet # Voids 2 1 1 # Bowel Movements 0 1 - Exam GENERAL: The patient is alert and oriented x3, not in any acute distress. Well developed, well nourished. Patient is anxious HEENT: Pupils are round and equally reacting to light. EOMI. No scleral icterus. No conjunctival pallor. Normocephalic, atraumatic. No pharyngeal erythema. No thyromegaly. CARDIOV ASCULAR: S1 and S2 present. No murmurs, rubs, or gallops. PULMONARY: Chest is clear to auscultation, no wheezing , no crackles. Mild limited airway entry ABDOMEN: Soft, nontender, nondistended, normoactive bowel sounds. No palpable organomegaly. MUSCULOSKELETAL: No joint swelling or deformity. EXT mild limited REMITIES: No cyanosis, clubbing, or pedal edema. NEUROLOGICAL: Gross neurological examination did not reveal any focal deficits. SKIN: No rashes. no petechiae. - Labs CBC & Chem 7: 01/11/24 07:00 01/11/24 07:00 Labs: Abnormal Lab Results - Last 24 Hours (Table) 01/10/24 01/10/24 01/11/24 Range/Units 05:09 20:14 07:00 RBC (3.80-5.40) m/uL Hgb (11.4-16.0) gm/dL Hct (34.0-46.0) % APTT 41.2 H (22.0-30.0) sec Chloride 114 H (98-107) mmol/L Carbon Dioxide 18 L (22-30) mmol/L BUN 30 H (7-17) mg/dL Creatinine 1.48 H (0.52-1.04) mg/dL Glucose 161 H (74-99) mg/dL POC Glucose (mg/dL) 213 H (70-110) mg/dL Calcium 8.3 L (8.4-10.2) mg/dL Total Protein 5.8 L (6.3-8.2) g/dL Albumin 3.2 L (3.5-5.0) g/dL 01/11/24 01/11/24 01/11/24 Range/Units 07:00 07:00 08:14 RBC 3.36 L (3.80-5.40) m/uL Hgb 11.0 L (11.4-16.0) gm/dL Hct 33.1 L (34.0-46.0) % APTT (22.0-30.0) sec Chloride 114 H (98-107) mmol/L Carbon Dioxide 20 L (22-30) mmol/L BUN 23 H (7-17) mg/dL Creatinine 1.46 H (0.52-1.04) mg/dL Glucose 141 H (74-99) mg/dL POC Glucose (mg/dL) 144 H (70-110) mg/dL Calcium (8.4-10.2) mg/dL Total Protein (6.3-8.2) g/dL Albumin (3.5-5.0) g/dL 01/11/24 01/11/24 01/11/24 Range/Units 11:27 14:35 16:27 RBC (3.80-5.40) m/uL Hgb (11.4-16.0) gm/dL Hct (34.0-46.0) % APTT 45.7 H (22.0-30.0) sec Chloride (98-107) mmol/L Carbon Dioxide (22-30) mmol/L BUN (7-17) mg/dL Creatinine (0.52-1.04) mg/dL Glucose (74-99) mg/dL POC Glucose (mg/dL) 173 H 220 H (70-110) mg/dL Calcium (8.4-10.2) mg/dL Total Protein (6.3-8.2) g/dL Albumin (3.5-5.0) g/dL Microbiology - Last 24 Hours (Table) 01/09/24 21:17 Nasal Screen MRSA/MSSA - Final Nasal Swab 01/09/24 21:20 Urine Culture - Preliminary Urine,Voided Gram Neg Bacilli Assessment and Plan Assessment: Non-STEMI, cardiac cath showing triple-vessel coronary artery disease patient being evaluated for CABG Mild acute COPD exacerbation Bilateral internal carotid artery stenosis, right side is occluded and left- sided 50 to 69% Bilateral pulmonary nodule 9 mm Liver infiltrate, possible fatty liver, neoplasm cannot be excluded CKD stage III Asthma Hypertension Hyperlipidemia Diabetes mellitus History of PE History of stroke Plan: Continue with heparin drip IV fluids discontinued Start ceftriaxone and follow-up urine culture Resume insulin and insulin sliding scale Cardiology consult Patient is not a candidate for CABG, alternatively she will be treated with stent placement Pulmonary service consult Labs and medication were reviewed.. Continue same treatment. Continue with symptomatic treatment. Resume home medication. Monitor labs and vitals. DVT and GI prophylaxis. Further recommendations as per clinical course of the patient DVT prophylaxis: Subcutaneous heparin GI Prophylaxis: Pepcid PT/OT: Pending Prognosis is guarded
[2024-01-12 06:05] LABS: Glucose,Whole Blood 175 mg/dL (70-110)
[2024-01-12] MEDS: ATORVASTATIN 80 MG TAB PO STA ×2 (09:54→13:07)
[2024-01-12] MEDS: ASPIRIN 325 MG TAB PO STA ×2 (09:54→13:07)
[2024-01-12 11:15] LABS: Glucose,Whole Blood 266 mg/dL (70-110)
[2024-01-12 12:03] VITALS: BMI 29.5
--- NOTE | 2024-01-12 12:31 | P.PN ---
Subjective Progress Note Date: 01/12/24 HISTORY OF PRESENTING ILLNESS This is a pleasant 73-year-old with past medical history significant for hyp ertension, hyperlipidemia, diabetes mellitus type 2, carotid artery disease, chronic kidney disease. She does not follow with a veneer stapler. She has strong family history of CAD with everyone in her family dying from heart disease. She was a prior smoker however quit 10-20 years ago. She has not seen a veneer stapler. She also has asthma and takes inhalers. Over last 1-2 months she has been having frequent episodes of chest pain and dyspnea with minimal exertion. She would take an inhaler or take a hot shower and it would usually improved. She was attributed this to asthma. She has more significant episode yesterday where symptoms did not improve and had persistent chest pain until she went to [facility] and was given nitro and morphine with improvement in her pain. She states currently her chest pain is completely resolved. Troponins elevated at 1.2, 1.5. Creatinine is 1.6 which appears at her baseline 1.5-1.7 per history. 01/09 She is status post left heart cath 01/09/2024 which revealed CAD including 80% mid LAD, 99% proximal circumflex and 100% subtotally occluded RCA stenosis, LVEDP was 27. She was referred for surgical evaluation for CABG however, she was deemed to be high risk and was recommended for PCI versus medical management. Echocardiogram shows EF 55-60%, RVSP 44. Carotid ultrasound showed right ICA occlusion and left ICA 50-69% stenosis. She denies any chest pain, reports her shortness of breath is better. 01/10 She had 1 brief episode of "chest irritation". Shortness of breath stable. 01/11 Patient is scheduled for PCI this afternoon. Patient is complaining of wheezing today. She did receive nebulizer treatments this morning. She is continued on a heparin drip. She denies having any chest pain. Blood pressure 122/69, heart rate 79, pulse ox 89% on room air. PHYSICAL EXAMINATION Vital signs reviewed. CONSTITUTIONAL: No apparent distress. HEENT: Head is normocephalic. Pupils are equal, round. Sclerae anicteric. Mucous membranes of the mouth are moist. No JVD. No carotid bruit. CHEST EXAMINATION: Scattered expiratory wheeze. No chest wall tenderness is noted on palpation or with deep breathing. HEART EXAMINATION: Regular rate and rhythm. S1, S2 heard. No murmurs, gallops or rub. ABDOMEN: Soft, nontender. Positive bowel sounds. EXTREMITIES: 2+ peripheral pulses, no lower extremity edema and no calf tenderness. NEUROLOGIC EXAMINATION: Patient is awake, alert and oriented x3. ASSESSMENT NSTEMI with type I etiology CAD including 80% mid LAD, 99% proximal circumflex and 100% subtotally occluded RCA stenosis Chest pain, dyspnea with exertion consistent with angina Diabetes mellitus type 2 Hypertension Hyperlipidemia Carotid artery disease Family history of CAD Remote tobacco abuse Asthma PLAN She was deemed high risk for CABG. Patient is scheduled for PCI today continue to monitor kidney function. LDL is 127, discussed the importance of cholesterol management. Patient is currently on aspirin 81 mg daily, atenolol 25 mg twice daily, a atorvastatin started at low-dose 10 mg due to intolerance in the past, Zetia 10 mg daily We will follow. Nurse practitioner note has been reviewed, I agree with documented findings and plan of care. Patient was seen and examined. Objective - Vital Signs Vital signs: Vital Signs Temp 97.8 F 01/12/24 08:34 Pulse 80 01/12/24 08:48 Resp 18 01/12/24 08:35 BP 130/73 01/12/24 08:34 Pulse Ox 95 01/12/24 08:36 FiO2 21 01/12/24 08:36 Intake & Output 01/11/24 01/12/24 01/12/24 18:59 06:59 18:59 Intake Total 455.080 Balance 455.080 Weight 80.6 kg Intake: Intake, IV Titration 235.080 Amount Heparin Sod,Pork in 0.45% 235.080 NaCl 25,000 unit In 0.45 % NaCl 1 250ml.bag @ 11. 603 UNITS/KG/HR 10 mls/hr IV .Q24H [facility] Rx#: [id number] Oral 220 Other: Voiding Method Toilet Toilet Toilet # Voids 1 4 # Bowel Movements 1 0 - Labs CBC & Chem 7: 01/11/24 07:00 01/11/24 07:00 Labs: Abnormal Lab Results - Last 24 Hours (Table) 01/11/24 01/11/24 01/11/24 Range/Units 11:27 14:35 16:27 APTT 45.7 H (22.0-30.0) sec POC Glucose (mg/dL) 173 H 220 H (70-110) mg/dL 01/11/24 01/12/24 01/12/24 Range/Units 20:01 06:03 07:01 APTT 48.4 H (22.0-30.0) sec POC Glucose (mg/dL) 190 H 175 H (70-110) mg/dL Microbiology - Last 24 Hours (Table) 01/09/24 21:17 Nasal Screen MRSA/MSSA - Final Nasal Swab 01/09/24 21:20 Urine Culture - Preliminary Urine,Voided Gram Neg Bacilli
[2024-01-12] MEDS ORDERED: DEXTROSE 50% SYRINGE 50 ML IVP PRN ×2 (15:31)
[2024-01-12 16:19] LABS: Glucose,Whole Blood 136 mg/dL (70-110)
[2024-01-12] MEDS: INSULIN ASPART (NovoLOG) 100 UNIT/ML VIAL SQ SCH (16:30)
[2024-01-12] MEDS ORDERED: VERAPAMIL 2.5 MG/ML 2 ML AMP ONE (16:39)
[2024-01-12] MEDS ORDERED: fentaNYL (PF) 50 MCG/ML 2 ML AMP ONE (16:39)
[2024-01-12] MEDS ORDERED: LIDOCAINE 1% INJ 10MG/ML (20 ML MDV) ONE (16:39)
[2024-01-12] MEDS: SODIUM CHLORIDE 0.9% 950 ML IV ONE (16:54)
[2024-01-12] MEDS: fentaNYL (PF) 50 MCG/1 ML VIAL IVP ONE ×3 (17:09→17:38)
[2024-01-12] MEDS: LIDOCAINE 1% INJ 10MG/ML (20 ML MDV) SQ ONE (17:09)
[2024-01-12] MEDS: MIDAZOLAM 2 MG/2 ML VIAL IVP ONE ×3 (17:09→17:38)
[2024-01-12] MEDS: VERAPAMIL 2.5 MG/ML 4 ML VIAL INTRAARTER ONE (17:11)
[2024-01-12] MEDS: HEPARIN SODIUM 1,000 UN/ML (10ML VL) IVP ONE ×2 (17:13→17:23)
[2024-01-12] MEDS: NITROGLYCERIN 1000MCG/10ML SYRINGE INTRACORON ONE ×7 (17:23→18:05)
[2024-01-12] MEDS: HEPARIN SODIUM,PORCINE (1 ML) 2,500 UNIT in SODIUM CHLORIDE 0.9% 250 ML IRRIGATION ONE (17:32)
[2024-01-12] MEDS: HEPARIN SODIUM,PORCINE 10,000 UNIT in SODIUM CHLORIDE 0.9% 1,000 ML IRRIGATION ONE (17:33)
[2024-01-12] MEDS ORDERED: HEPARIN SODIUM,PORCINE 30 ML 30 ML ONE (18:09)
[2024-01-12] MEDS ORDERED: CLOPIDOGREL 75 MG TAB ONE (18:11)
[2024-01-12] MEDS: IOPAMIDOL-370 100ML BTL INTRATHECA ONE (18:25)
[2024-01-12] MEDS: NITROGLYCERIN SL TABS 0.4 MG TAB SUBLINGUAL PRN (19:09)
[2024-01-12 19:17] LABS: Glucose,Whole Blood 164 mg/dL (70-110)
[2024-01-12] MEDS: ISOSORBIDE MONONITRATE ER 30 MG TAB.ER.24H PO STA (19:21)
[2024-01-12] MEDS: MORPHINE SULFATE 4 MG/ML SYRINGE IV PRN (20:04)
[2024-01-12] MEDS: hydrALAZINE HCL 25 MG TAB PO SCH (20:43)
--- NOTE | 2024-01-12 20:59 | P.PN ---
Subjective Progress Note Date: 01/12/24 This is a very pleasant 73-year-old female patient with a history of hypertension, diabetes mellitus, anxiety, atrial fibrillation, hyperlipidemia, chronic obstructive pulmonary disease, 52-year smoking history. She had presented to [facility] with chest pain on 01/08/2024. Workup there did reveal a non-ST segment elevation myocardial infarction and she was transferred here on 01/09/2024 for further workup. Cardiac catheterization revealed coronary artery disease with 80% mid LAD lesion, 99% proximal circumflex lesion and 100% totally occluded RCA stenosis. She is being worked up for possible coronary artery bypass grafting. CT scan of the chest revealed COPD with moderate emphysema. Extensive three-vessel coronary artery calcifications. 9 mm bilateral nodularity inferior lingula. Mild to moderate apical scarring. Very heterogenous appearance to the right liver lobe may be due to fatty infiltration however neoplasm is not excluded. Carotid Doppler reveals right ICA occlusion. Flow velocities in the proximal left ICA suggesting 50 to 69% stenosis. White count 7.2. Hemoglobin 11.2. Platelets 199. Sodium 141. Potassium 4.0. Bicarb 12. BUN 35. Creatinine 1.66. Glucose 382. AST 26. ALT 11. Troponin 1.24, 1.59, 1.46. She is currently resting fairly comfortably in bed. Maintaining O2 saturations in the 90s on room air. Afebrile. Hemodynamically stable. She is continued on a heparin drip. Normal saline at 75 MLS per hour. Progress note dated January 11, 2024. The patient is seen today again in room 371. The patient was found to have multivessel coronary artery disease, and was admitted with a non-ST segment elevation myocardial infarction. The patient is currently being evaluated by cardiothoracic surgery for bypass surgery. A date has not yet been set. Currently, the patient is on room air. The patient denies any shortness of breath or difficulty breathing. She is receiving IV heparin. Current laboratory data includes a white count 6.3, hemoglobin 11, hematocrit 33.1, and platelet count 187,000. PTT is 41.2. Sodium 140, potassium 4.1, chloride 114, CO2 20, BUN 23, creatinine 1.46, and glucose 144. 01/12/2024, the patient is being seen for a follow-up. Patient is scheduled to undergo cardiac catheterization and PCI. The patient underwent a left sided cardiac catheter 01/01/2024 revealing coronary artery disease including an 80% mid LAD lesion, 99% circumflex lesion and 100% subtotal occlusion of the RCA with an elevated left ventricular end-diastolic pressure. The patient was referred for bypass surgery and the patient was found to be a high risk for bypass and the patient was recommended to undergo PCI and medical management. Preserved LV function with an ejection fraction of 55 to 60%. Carotid artery showed some left ICA and right ICA stenosis in the order of 50 to 69%. The patient is free of any chest pain. The patient is on 2 L of oxygen by nasal cannula. Patient remains on aspirin. Patient remains on atenolol 25 mg twice a day and statins and Zetia. Other comorbid conditions include hypertension, diabetes mellitus type 2, COPD, hyperlipidemia and atrial fibrillation. The patient carries [id number] smoking history. Objective - Vital Signs Vital signs: Vital Signs Temp 97.8 F 01/12/24 08:34 Pulse 79 01/12/24 13:59 Resp 18 01/12/24 13:59 BP 122/69 01/12/24 12:00 Pulse Ox 89 L 01/12/24 12:00 FiO2 21 01/12/24 08:36 Intake & Output 01/11/24 01/12/24 01/12/24 18:59 06:59 18:59 Intake Total 455.080 360 Balance 455.080 360 Weight 80.6 kg 80.6 kg Intake: Intake, IV Titration 235.080 Amount Heparin Sod,Pork in 0.45% 235.080 NaCl 25,000 unit In 0.45 % NaCl 1 250ml.bag @ 11. 603 UNITS/KG/HR 10 mls/hr IV .Q24H [facility] Rx#: [id number] Oral 220 360 Other: Voiding Method Toilet Toilet Toilet # Voids 1 4 2 # Bowel Movements 1 0 - Exam No acute distress, oriented 3. 2 L of oxygen by nasal cannula HEENT examination is grossly unremarkable. Mucous membranes are moist. No oral lesions. Neck supple. Full range of motion. No adenopathy thyromegaly or neck vein distention. Cardiovascular examination reveals regular rhythm rate. S1-S2 normal. No S3 or S4. No discernible murmur noted. Lungs reveal clear breath sounds. Breath sounds are equal bilaterally. No adventitious lung sounds including wheezes rhonchi or crackles. Abdomen soft bowel sounds are heard. No masses or tenderness. Extremities are intact. No cyanosis clubbing or edema. Skin is without rash or lesion. Neurologic examination is brief but nonfocal. - Labs CBC & Chem 7: 01/11/24 07:00 01/11/24 07:00 Labs: Abnormal Lab Results - Last 24 Hours (Table) 01/11/24 01/11/24 01/11/24 Range/Units 14:35 16:27 20:01 APTT 45.7 H (22.0-30.0) sec POC Glucose (mg/dL) 220 H 190 H (70-110) mg/dL 01/12/24 01/12/24 01/12/24 Range/Units 06:03 07:01 11:13 APTT 48.4 H (22.0-30.0) sec POC Glucose (mg/dL) 175 H 266 H (70-110) mg/dL Microbiology - Last 24 Hours (Table) 01/09/24 21:20 Urine Culture - Final Urine,Voided Enterobacter cloacae 01/09/24 21:17 Nasal Screen MRSA/MSSA - Final Nasal Swab Assessment and Plan Plan: Acute Non-ST segment elevation myocardial infarction, severe triple-vessel disease including an 80% stenosis at the mid LAD, 99% proximal circumflex stenosis and 100% subtotally occluded RCA. Awaiting cardiac catheterization and PCI and stenting. The patient remains on aspirin and beta-blockers and statins Acute kidney injury, improving Hyperlipidemia. Hypertension. Diabetes mellitus type II Chronic obstructive pulmonary disease. FEV1 value 1.5 L / 52% of predicted. Chronic tobacco dependence of 52 years, quit 10 years ago. Right internal carotid artery occlusion. Chronic kidney disease, stage III. History of anxiety/PTSD. Plan: Titrate oxygen flow to maintain saturation above 90%, currently on 2 L Acute hypoxic respiratory failure currently on 2 L of O2 nasal cannula Continue Symbicort Continue DuoNeb updrafts Continue IV heparin Continue aspirin Continue atenolol 25 mg twice a day Continue Lipitor and Zetia Monitor renal function was essentially improving Awaiting further recommendations from cardiology. Possible cardiac catheterization and PCI today. High risk for surgical coronary artery bypass surgery and the patient will be offered medical treatment/percutaneous inter vention/PCI.
[2024-01-13 05:58] LABS: Glucose,Whole Blood 122 mg/dL (70-110)
--- NOTE | 2024-01-13 06:47 | P.PN ---
Subjective This is a pleasant 33 years old female with past medical history of multiple medical problems as below. She was transferred from [facility] for chest pain and diagnosed today with non-STEMI. 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 Her chest pain now feels mild after she received treatment in the emergency room Patient denies any other GI urinary symptoms, no headache dizziness weakness or numbness. She quit smoking about 15 years ago with no alcohol or illicit drugs. Vital stable CBC, INR unremarkable Creatinine 1.6 which is at baseline of 1.4-1.7 elevated. Glucose was elevated, Troponin are elevated 1.2 and 1.5 Lipase 369 EKG showing sinus rhythm at [address]-T changes Echocardiogram is ordered 01/10/2024 Patient underwent cardiac cath yesterday showing triple-vessel coronary artery disease, LAD 80%, left circumflex 99% and RCA is completely occluded 100% Cardiothoracic surgery are consulted for CABG evaluation. CT of the chest was done showing COPD with emphysema with bilateral pulmonary nodule [address] scan follow-up in 3 months also with some liver infiltrate which could be fatty continue plastic on the recommended liver ultrasound to be followed by CT/MRI. Patient remains on heparin drip currently She was very anxious this morning and Xanax helped her Also she has some tachypnea with limited air entry on both sides most likely related to her acute COPD exacerbation, pulmonary team were consulted and will address this. She is also on her home dose of aspirin 81 mg. She is still on heparin drip and aspirin 81 mg 01/11/2024 Patient mildly tachypneic but no chest pain She looks tired and lethargic Her urine culture came back positive for gram-negative bacilli Patient started on ceftriaxone for acute urinary tract infection Patient s/p cardiac cath showing triple-vessel coronary artery disease however patient is found a poor candidate for CABG Alternatively patient is going for stent placement tomorrow morning/afternoon She is still on heparin drip and aspirin 81 mg 01/12/24 Patient was sitting in chair looks little anxious as she is going for cardiac cath today No chest pain no tachypnea at rest She still getting the heparin drip and aspirin 81 mg Objective - Vital Signs Vital signs: Vital Signs Temp 97.6 F 01/12/24 15:26 Pulse 73 01/12/24 15:26 Resp 18 01/12/24 15:26 BP 124/58 01/12/24 15:26 Pulse Ox 94 L 01/12/24 15:26 FiO2 21 01/12/24 08:36 Intake & Output 01/11/24 01/12/24 01/12/24 18:59 06:59 18:59 Intake Total 455.080 360 Balance 455.080 360 Weight 80.6 kg 80.6 kg Intake: Intake, IV Titration 235.080 Amount Heparin Sod,Pork in 0.45% 235.080 NaCl 25,000 unit In 0.45 % NaCl 1 250ml.bag @ 11. 603 UNITS/KG/HR 10 mls/hr IV .Q24H [facility] Rx#: [id number] Oral 220 360 Other: Voiding Method Toilet Toilet Toilet # Voids 1 4 2 # Bowel Movements 1 0 - Exam GENERAL: The patient is alert and oriented x3, not in any acute distress. Well developed, well nourished. Patient is anxious HEENT: Pupils are round and equally reacting to light. EOMI. No scleral icterus. No conjunctival pallor. Normocephalic, atraumatic. No pharyngeal erythema. No thyromegaly. CARDIOVASCULAR: S1 and S2 present. No murmurs, rubs, or gallops. PULMONARY: Chest is clear to auscultation, no wheezing , no crackles. Mild limited airway entry ABDOMEN: Soft, nontender, nondistended, normoactive bowel sounds. No palpable organomegaly. MUSCULOSKELETAL: No joint swelling or deformity. EXT mild limited REMITIES: No cyanosis, clubbing, or pedal edema. NEUROLOGICAL: Gross neurological examination did not reveal any focal deficits. SKIN: No rashes. no petechiae. - Labs CBC & Chem 7: 01/11/24 07:00 01/11/24 07:00 Labs: Abnormal Lab Results - Last 24 Hours (Table) 01/11/24 01/11/24 01/12/24 Range/Units 16:27 20:01 06:03 APTT (22.0-30.0) sec POC Glucose (mg/dL) 220 H 190 H 175 H (70-110) mg/dL 01/12/24 01/12/24 01/12/24 Range/Units 07:01 11:13 16:18 APTT 48.4 H (22.0-30.0) sec POC Glucose (mg/dL) 266 H 136 H (70-110) mg/dL Microbiology - Last 24 Hours (Table) 01/09/24 21:20 Urine Culture - Final Urine,Voided Enterobacter cloacae 01/09/24 21:17 Nasal Screen MRSA/MSSA - Final Nasal Swab Assessment and Plan Assessment: Non-STEMI, cardiac cath showing triple-vessel coronary artery disease patient being evaluated for CABG Mild acute COPD exacerbation Bilateral internal carotid artery stenosis, right side is occluded and left- sided 50 to 69% Bilateral pulmonary nodule 9 mm Liver infiltrate, possible fatty liver, neoplasm cannot be excluded CKD stage III Asthma Hypertension Hyperlipidemia Diabetes mellitus History of PE History of stroke Plan: Continue with heparin drip IV fluids discontinued Start ceftriaxone and follow-up urine culture Resume insulin and insulin sliding scale Cardiology consult Patient is not a candidate for CABG, alternatively she will be treated with stent placement Pulmonary service consult Labs and medication were reviewed.. Continue same treatment. Continue with symptomatic treatment. Resume home medication. Monitor labs and vitals. DVT and GI prophylaxis. Further recommendations as per clinical course of the patient DVT prophylaxis: Subcutaneous heparin GI Prophylaxis: Pepcid PT/OT: Pending Prognosis is guarded
[2024-01-13] MEDS ORDERED: HEPARIN SODIUM,PORCINE 10,000 UNIT in SODIUM CHLORIDE 0.9% 1,000 ML IRRIGATION PRN (07:00)
[2024-01-13] MEDS ORDERED: HEPARIN SODIUM,PORCINE (1 ML) 2,500 UNIT in SODIUM CHLORIDE 0.9% 250 ML IRRIGATION PRN (07:00)
[2024-01-13 11:38] LABS: Glucose,Whole Blood 169 mg/dL (70-110)
[2024-01-13] MEDS: CLOPIDOGREL 75 MG TAB PO SCH (13:56)
[2024-01-13] MEDS: amLODIPine 2.5 MG TAB PO SCH (13:57)
[2024-01-13] MEDS: ISOSORBIDE MONONITRATE ER 30 MG TAB.ER.24H PO SCH (13:57)
--- NOTE | 2024-01-13 14:11 | P.PN ---
Subjective Progress Note Date: 01/13/24 HISTORY OF PRESENTING ILLNESS This is a pleasant 73-year-old with past medical history significant for hyp ertension, hyperlipidemia, diabetes mellitus type 2, carotid artery disease, chronic kidney disease. She does not follow with a wound treatment rn. She has strong family history of CAD with everyone in her family dying from heart disease. She was a prior smoker however quit 10-20 years ago. She has not seen a wound treatment rn. She also has asthma and takes inhalers. Over last 1-2 months she has been having frequent episodes of chest pain and dyspnea with minimal exertion. She would take an inhaler or take a hot shower and it would usually improved. She was attributed this to asthma. She has more significant episode yesterday where symptoms did not improve and had persistent chest pain until she went to [facility] and was given nitro and morphine with improvement in her pain. She states currently her chest pain is completely resolved. Troponins elevated at 1.2, 1.5. Creatinine is 1.6 which appears at her baseline 1.5-1.7 per history. 01/09 She is status post left heart cath 01/09/2024 which revealed CAD including 80% mid LAD, 99% proximal circumflex and 100% subtotally occluded RCA stenosis, LVEDP was 27. She was referred for surgical evaluation for CABG however, she was deemed to be high risk and was recommended for PCI versus medical management. Echocardiogram shows EF 55-60%, RVSP 44. Carotid ultrasound showed right ICA occlusion and left ICA 50-69% stenosis. She denies any chest pain, reports her shortness of breath is better. 01/10 She had 1 brief episode of "chest irritation". Shortness of breath stable. 01/11 Patient is scheduled for PCI this afternoon. Patient is complaining of wheezing today. She did receive nebulizer treatments this morning. She is continued on a heparin drip. She denies having any chest pain. Blood pressure 122/69, heart rate 79, pulse ox 89% on room air. 01/12 Yesterday, patient underwent PCI with Dr. Hahn. Patient had an episode of chest pain this morning and at that time her vital signs were stable. Pulse ox was 93% on 2 L and was increased to 3 L. EKG did not show any acute changes. Patient complains of chest pain that develops when she has Nitropaste put on and starts on the left side of her chest on number 8 out of 10. She denies any chest pain at this time. Nitropaste will be discontinued. Blood pressure 143/72, heart rate 86, pulse ox 95% on 4 L. PHYSICAL EXAMINATION Vital signs reviewed. CONSTITUTIONAL: No apparent distress. HEENT: Head is normocephalic. Pupils are equal, round. Sclerae anicteric. Mucous membranes of the mouth are moist. No JVD. No carotid bruit. CHEST EXAMINATION: Scattered expiratory wheeze. No chest wall tenderness is noted on palpation or with deep breathing. HEART EXAMINATION: Regular rate and rhythm. S1, S2 heard. No murmurs, gallops or rub. ABDOMEN: Soft, nontender. Positive bowel sounds. EXTREMITIES: 2+ peripheral pulses, no lower extremity edema and no calf tenderness. NEUROLOGIC EXAMINATION: Patient is awake, alert and oriented x3. ASSESSMENT NSTEMI with type I etiology CAD including 80% mid LAD, 99% proximal circumflex and 100% subtotally occluded RCA stenosis Chest pain, dyspnea with exertion consistent with angina Diabetes mellitus type 2 Hypertension Hyperlipidemia Carotid artery disease Family history of CAD Remote tobacco abuse Asthma PLAN Multiple medication changes made: Discontinue IV heparin, discontinue hydralazine, discontinue Nitropaste, discontinue atenolol Increase atorvastatin to 40 mg Add Plavix 75 mg daily, add amlodipine 2.5 mg daily, Coreg 12.5 mg twice daily, and Imdur 30 mg daily Continue patient on aspirin 81 mg daily, Zetia 10 mg daily continue to monitor kidney function. LDL is 127, discussed the importance of cholesterol management. We will follow. Nurse practitioner note has been reviewed, I agree with documented findings and plan of care. Patient was seen and examined. Objective - Vital Signs Vital signs: Vital Signs Temp 98.1 F 01/13/24 08:00 Pulse 82 01/13/24 11:54 Resp 26 H 01/13/24 09:45 BP 134/73 01/13/24 09:45 Pulse Ox 95 01/13/24 09:45 FiO2 21 01/12/24 08:36 Intake & Output 01/12/24 01/13/24 01/13/24 18:59 06:59 18:59 Intake Total 410.5 Output Total 200 Balance 210.5 Weight 80.6 kg 98.1 kg Intake: IV 50.5 Oral 360 Output: Urine 200 Other: Voiding Method Toilet Bedpan # Voids 2 1 - Labs CBC & Chem 7: 01/11/24 07:00 01/11/24 07:00 Labs: Abnormal Lab Results - Last 24 Hours (Table) 01/12/24 01/12/24 01/13/24 Range/Units 16:18 19:15 00:20 APTT 63.7 H (22.0-30.0) sec POC Glucose (mg/dL) 136 H 164 H (70-110) mg/dL 01/13/24 01/13/24 01/13/24 Range/Units 05:57 09:15 11:37 APTT 54.3 H (22.0-30.0) sec POC Glucose (mg/dL) 122 H 169 H (70-110) mg/dL Microbiology - Last 24 Hours (Table) 01/09/24 21:20 Urine Culture - Final Urine,Voided Enterobacter cloacae
--- NOTE | 2024-01-13 14:59 | P.PN ---
Subjective Progress Note Date: 01/13/24 This is a very pleasant 73-year-old female patient with a history of hypertension, diabetes mellitus, anxiety, atrial fibrillation, hyperlipidemia, chronic obstructive pulmonary disease, 52-year smoking history. She had presented to [facility] with chest pain on 01/08/2024. Workup there did reveal a non-ST segment elevation myocardial infarction and she was transferred here on 01/09/2024 for further workup. Cardiac catheterization revealed coronary artery disease with 80% mid LAD lesion, 99% proximal circumflex lesion and 100% totally occluded RCA stenosis. She is being worked up for possible coronary artery bypass grafting. CT scan of the chest revealed COPD with moderate emphysema. Extensive three-vessel coronary artery calcifications. 9 mm bilateral nodularity inferior lingula. Mild to moderate apical scarring. Very heterogenous appearance to the right liver lobe may be due to fatty infiltration however neoplasm is not excluded. Carotid Doppler reveals right ICA occlusion. Flow velocities in the proximal left ICA suggesting 50 to 69% stenosis. White count 7.2. Hemoglobin 11.2. Platelets 199. Sodium 141. Potassium 4.0. Bicarb 12. BUN 35. Creatinine 1.66. Glucose 382. AST 26. ALT 11. Troponin 1.24, 1.59, 1.46. She is currently resting fairly comfortably in bed. Maintaining O2 saturations in the 90s on room air. Afebrile. Hemodynamically stable. She is continued on a heparin drip. Normal saline at 75 MLS per hour. Progress note dated January 11, 2024. The patient is seen today again in room 371. The patient was found to have multivessel coronary artery disease, and was admitted with a non-ST segment elevation myocardial infarction. The patient is currently being evaluated by cardiothoracic surgery for bypass surgery. A date has not yet been set. Currently, the patient is on room air. The patient denies any shortness of breath or difficulty breathing. She is receiving IV heparin. Current laboratory data includes a white count 6.3, hemoglobin 11, hematocrit 33.1, and platelet count 187,000. PTT is 41.2. Sodium 140, potassium 4.1, chloride 114, CO2 20, BUN 23, creatinine 1.46, and glucose 144. 01/12/2024, the patient is being seen for a follow-up. Patient is scheduled to undergo cardiac catheterization and PCI. The patient underwent a left sided cardiac catheter 01/01/2024 revealing coronary artery disease including an 80% mid LAD lesion, 99% circumflex lesion and 100% subtotal occlusion of the RCA with an elevated left ventricular end-diastolic pressure. The patient was referred for bypass surgery and the patient was found to be a high risk for bypass and the patient was recommended to undergo PCI and medical management. Preserved LV function with an ejection fraction of 55 to 60%. Carotid artery showed some left ICA and right ICA stenosis in the order of 50 to 69%. The patient is free of any chest pain. The patient is on 2 L of oxygen by nasal cannula. Patient remains on aspirin. Patient remains on atenolol 25 mg twice a day and statins and Zetia. Other comorbid conditions include hypertension, diabetes mellitus type 2, COPD, hyperlipidemia and atrial fibrillation. The patient carries [id number] smoking history. 01/13/24, the patient is being seen for a follow-up. The patient underwent c ardiac catheterization and PCI yesterday by interventional cardiology. The patient is complaining of some chest discomfort and numbness on the left side of the chest and arm. EKG was done and showed no acute ischemic changes. She is currently on 40s of oxygen by nasal cannula and she remains on IV heparin. Her cardiac rhythm is still sinus and the patient remains hemodynamically stable. She is slightly bronchospastic and wheezy. She is on Symbicort and DuoNeb updrafts [id number]. She is on a combination of aspirin and Plavix. She is also on Coreg 12.5 mg p.o. twice a day. Levemir insulin 56 units twice daily and 14 units of NovoLog with meals and/scale coverage. Cardiology remains on the case. Echocardiogram that was done on 01/10/2024 showed preserved LV function without any significant valvular abnormalities and the patient's RVSP was 44. Objective - Vital Signs Vital signs: Vital Signs Temp 98.1 F 01/13/24 08:00 Pulse 86 01/13/24 09:45 Resp 26 H 01/13/24 09:45 BP 134/73 01/13/24 09:45 Pulse Ox 95 01/13/24 09:45 FiO2 21 01/12/24 08:36 Intake & Output 01/12/24 01/13/24 01/13/24 18:59 06:59 18:59 Intake Total 410.5 Output Total 200 Balance 210.5 Weight 80.6 kg 98.1 kg Intake: IV 50.5 Oral 360 Output: Urine 200 Other: Voiding Method Toilet Bedpan # Voids 2 1 - Exam No acute distress, oriented 3. 4 L of oxygen by nasal cannula HEENT examination is grossly unremarkable. Mucous membranes are moist. No oral lesions. Neck supple. Full range of motion. No adenopathy thyromegaly or neck vein distention. Cardiovascular examination reveals regular rhythm rate. S1-S2 normal. No S3 or S4. No discernible murmur noted. Lungs reveal clear breath sounds. Breath sounds are equal bilaterally. No adventitious lung sounds including wheezes rhonchi or crackles. Abdomen soft bowel sounds are heard. No masses or tenderness. Extremities are intact. No cyanosis clubbing or edema. Skin is without rash or lesion. Neurologic examination is brief but nonfocal. - Labs CBC & Chem 7: 01/11/24 07:00 01/11/24 07:00 Labs: Abnormal Lab Results - Last 24 Hours (Table) 01/12/24 01/12/24 01/12/24 Range/Units 11:13 16:18 19:15 APTT (22.0-30.0) sec POC Glucose (mg/dL) 266 H 136 H 164 H (70-110) mg/dL 01/13/24 01/13/24 01/13/24 Range/Units 00:20 05:57 09:15 APTT 63.7 H 54.3 H (22.0-30.0) sec POC Glucose (mg/dL) 122 H (70-110) mg/dL Microbiology - Last 24 Hours (Table) 01/09/24 21:20 Urine Culture - Final Urine,Voided Enterobacter cloacae Assessment and Plan Plan: Acute Non-ST segment elevation myocardial infarction, severe triple-vessel disease including an 80% stenosis at the mid LAD, 99% proximal circumflex stenosis and 100% subtotally occluded RCA. The patient underwent cardiac catheterization and PCI and for now she is having some residual chest pain remains on IV heparin. Remains on aspirin and Plavix. EKG findings are essentially nonspecific. No acute ischemic changes. Acute kidney injury, improving Hyperlipidemia. Hypertension. Diabetes mellitus type II Chronic obstructive pulmonary disease. FEV1 value 1.5 L / 52% of predicted. Chronic tobacco dependence of 52 years, quit 10 years ago. Right internal carotid artery occlusion. Chronic kidney disease, stage III. History of anxiety/PTSD. Plan: Titrate oxygen flow to maintain saturation above 90%, currently on 4 L of oxygen by nasal cannula Obtain a follow-up chest x-ray Continue Symbicort Continue DuoNeb updrafts Continue IV heparin Continue aspirin and Plavix Continue Coreg 12.5 mg twice a day Continue Lipitor and Zetia Monitor renal function was essentially improving Obtain follow-up blood work including renal function We will continue to follow.
[2024-01-13 15:27] LABS: Basophils % (A) 1 %; Eosinophils # (A) 0.3 k/uL (0-0.7); Eosinophils % (A) 6 %; HCT 33.7 % (34.0-46.0); HGB 10.6 gm/dL (11.4-16.0); Lymphocytes # (A) 0.9 k/uL (1.0-4.8); Lymphocytes % (A) 16 %; MCHC 31.3 g/dL (31.0-37.0); MCV 102.3 fL (80.0-100.0); Macrocytosis Slight; Mean Platelet Volume 8.8; Monocytes # (A) 0.4 k/uL (0-1.0); Monocytes % (A) 7 %; Neutrophils % (A) 69 %; Platelet Count 189 k/uL (150-450); RDW 14.6 % (11.5-15.5); WBC 5.8 k/uL (3.8-10.6)
--- NOTE | 2024-01-13 16:00 | XR ---
EXAMINATION TYPE: XR chest 1V portable DATE OF EXAM: 01/13/2024 3:51 PM CLINICAL INDICATION:Female, 73 years old with history of SUSHIL; COMPARISON: Chest radiographs from 01/09/2024 TECHNIQUE: XR chest 1V portable Frontal view of the chest. FINDINGS: Lungs/Pleura: There is flattening of the diaphragm with increased lucency of the lungs. No evidence o f pneumothorax, pleural effusion or focal consolidation. Pulmonary vascularity: Unremarkable. Heart/mediastinum: Cardiomediastinal silhouette is unremarkable. Musculoskeletal: No acute osseous pathology. IMPRESSION: 1. No acute cardiopulmonary disease process. 2. COPD changes.
[2024-01-13 16:06] LABS: Glucose,Whole Blood 173 mg/dL (70-110)
[2024-01-13 16:16] LABS: ALT 14 U/L (4-34); AST 39 U/L (14-36); African American GFR (CKD) 35 (>60 ml/min/1.73 sqM); Albumin 3.3 g/dL (3.5-5.0); Alkaline Phosphatase 67 U/L (38-126); Anion Gap 8 mmol/L; Blood Urea Nitrogen 22 mg/dL (7-17); Calcium 8.3 mg/dL (8.4-10.2); Carbon Dioxide 22 mmol/L (22-30); Chloride 112 mmol/L (98-107); Glucose 173 mg/dL (74-99); Non-African American GFR(CKD) 30 (>60 ml/min/1.73 sqM); Potassium 4.3 mmol/L (3.5-5.1); Sodium 142 mmol/L (137-145); Total Bilirubin 0.2 mg/dL (0.2-1.3); Total Protein 5.8 g/dL (6.3-8.2)
--- NOTE | 2024-01-13 17:07 | P.PRCINT ---
Percutaneous Coronary Int. - Percutaneous Coronary Intervention Percutaneous Coronary Intervention: PROCEDURES PERFORMED: Left coronary angiography, ultrasound guided arterial access, PCI LAD with overlapping 3.0 x 28mm Xience LORETTA and 2.5 x 23mm Xience LORETTA, post dilated with a 3.0 NC and a 3.25 mm NC, IVUS LAD INDICATION: non-STEMI CONSENT:I have discussed the risks, benefits and alternative therapies for the above-mentioned procedure and for both sedation/analgesia as well as necessary blood product administration, if indicated, as they pertain to this patient. The patient has indicated understanding and acceptance of the risks and procedures discussed. PROCEDURE: After the risks, benefits and alternatives of the above mentioned procedure explained in detail with the patient, informed consent was obtained. Patient was taken to the catheterization lab and prepped and draped in usual fashion. Ultrasound guidance was used to assess for arterial access. 1% lidocaine was used to anesthetize the right radial artery. A 6-Hungarian sheath was placed in the right radial artery using modified Seldinger technique and ultrasound guidance. decision was made to perform PCI of LAD. A 6-Hungarian CLS 3.5 guide was easily engage the left main. Patient did have some chest pain throughout the procedure and some of this was felt related to occluding flow in the left main, LAD with patient had a multivessel disease and there being some ventricularization with the guide catheter. Therefore care was made to disengage when able. Patient still had chest pain throughout the procedure to be for angioplasty was performed. A 0.014 BMW wire was advanced in the distal LAD. Predilation was performed with a 2.25 x 12 mm balloon. Next intervascular ultrasound was performed with diffuse disease throughout. A 2.5 x 23 mm Xience LORETTA was placed in the mid to distal LAD. Initially considered stenting only focal area however there was more diffuse disease or proximally and stent edge preventing TARA catheter from advancing a more diffuse disease here and therefore decision made to stent over the small caliber diagonal 2 branch. Therefore post-dilation was performed with a 3.0 noncompliant balloon. An additional 3.0 x 28 mm Xience LORETTA was deployed in the mid LAD just past the larger septal 1 branch covering the 60% mid LAD stenosis. The stent was postdilated with a 3.25 mm noncompliant balloon. Repeat intravascular ultrasound showed well-expanded stent with no dissection. There was diffuse disease however felt best treated medically. The intervention there was 80% stenosis and CARMEN-3 flow and postintervention there was less than 10% stenosis with CARMEN 3 flow. The right radial sheath was removed and a TR band was placed with hemostasis achieved. The patient tolerated the procedure well. Patient was transported back to the post catheterization holding area in stable condition. Conscious Sedation: Patient was monitored under the direct supervision of myself for conscious sedation using Versed and fentanyl for a total duration of 64 minutes HEMODYNAMICS: aorta: 158/88 SELECTIVE CORONARY ARTERIOGRAPHY: LEFT MAIN: The left main is a large caliber vessel which bifurcates into the LAD and circumflex. There is mild 20% stenosis. LEFT ANTERIOR DESCENDING CORONARY ARTERY: LAD is a large caliber vessel which wraps around to the apex. There is a proximal LAD 30% stenosis , a proximal to mid LAD focal 60% stenosis and a mid LAD 80% stenosis just after a moderate caliber diagonal 2 branch with. Otherwise there are mild luminal irregularities. There is a "high diagonal" 1 branch which appears to be nearly ramus with no significant stenosis. LEFT CIRCUMFLEX CORONARY ARTERY: Left circumflex is a small to moderate caliber vessel with a proximal 99% stenosis with left to left collaterals. RIGHT CORONARY ARTERY: The right coronary artery is a large caliber vessel which gives off a PDA and PLV branch and is the dominant vessel. There is 100% stenosis FINAL IMPRESSION: 1. CAD as described above including 80% mid LAD, 99% proximal circumflex and 100% subtotally occluded RCA stenosis. 2. S/p PCI LAD with overlapping 3.0 x 28mm Xience LORETTA and 2.5 x 23mm Xience LORETTA, post dilated with a 3.0 NC and a 3.25 mm NC PLAN: 1. Aggressive risk factor modification per most recent ACC/AHA guidelines. 2. Continue dual antiplatelets with aspirin and Plavix for 12 months. 3. Circumflex does not appear ideal for [employer] PCI however if having more angina may consider attempted [employer] PCI RCA.
[2024-01-13] MEDS: carvediloL 12.5 MG TAB PO SCH (17:40)
[2024-01-13 20:18] LABS: Glucose,Whole Blood 140 mg/dL (70-110)
--- NOTE | 2024-01-13 22:15 | P.PN ---
Subjective This is a pleasant 33 years old female with past medical history of multiple medical problems as below. She was transferred from [facility] for chest pain and diagnosed today with non-STEMI. 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 Her chest pain now feels mild after she received treatment in the emergency room Patient denies any other GI urinary symptoms, no headache dizziness weakness or numbness. She quit smoking about 15 years ago with no alcohol or illicit drugs. Vital stable CBC, INR unremarkable Creatinine 1.6 which is at baseline of 1.4-1.7 elevated. Glucose was elevated, Troponin are elevated 1.2 and 1.5 Lipase 369 EKG showing sinus rhythm at [address]-T changes Echocardiogram is ordered 01/10/2024 Patient underwent cardiac cath yesterday showing triple-vessel coronary artery disease, LAD 80%, left circumflex 99% and RCA is completely occluded 100% Cardiothoracic surgery are consulted for CABG evaluation. CT of the chest was done showing COPD with emphysema with bilateral pulmonary nodule [address] scan follow-up in 3 months also with some liver infiltrate which could be fatty continue plastic on the recommended liver ultrasound to be followed by CT/MRI. Patient remains on heparin drip currently She was very anxious this morning and Xanax helped her Also she has some tachypnea with limited air entry on both sides most likely related to her acute COPD exacerbation, pulmonary team were consulted and will address this. She is also on her home dose of aspirin 81 mg. She is still on heparin drip and aspirin 81 mg 01/11/2024 Patient mildly tachypneic but no chest pain She looks tired and lethargic Her urine culture came back positive for gram-negative bacilli Patient started on ceftriaxone for acute urinary tract infection Patient s/p cardiac cath showing triple-vessel coronary artery disease however patient is found a poor candidate for CABG Alternatively patient is going for stent placement tomorrow morning/afternoon She is still on heparin drip and aspirin 81 mg 01/12/24 Patient was sitting in chair looks little anxious as she is going for cardiac cath today No chest pain no tachypnea at rest She still getting the heparin drip and aspirin 81 mg 01/13/2024 Patient is a status post cardiac cath for her non-STEMI on presentation showing triple-vessel coronary artery disease, patient was found not a candidate for surgical intervention, partly due to because of her lung disease. She is status post PCI to LAD today, postprocedure she is awake looks tired mildly tachypneic most likely related to her COPD lung disease and she has been followed closely by pulmonary service Also she has evidence of UTI with resistant E. coli sensitive to Rocephin which she is getting now. Patient also with asymptomatic liver lesion found incidentally during the CT of the chest, liver ultrasound showed fatty infiltration but recommended MRI mass protocol to rule out further lesions. However patient has chronic kidney disease with creatinine 1.6 at baseline because of this we are going to consult hematology/oncology team for further recommendations. Patient hemodynamically stable Heparin drip was discontinued and currently she is on aspirin and Plavix dual antiplatelet therapy. Coreg is added. Glucose currently controlled however hemoglobin A1c is 9.4% Review of systems CONSTITUTIONAL: No fever, no malaise, no fatigue. HEENT: No recent visual problems or hearing problems. Denied any sore throat. HEMATOLOGICAL: Denies any bleeding or petechiae. GENITOURINARY: Denies any burning micturition, frequency, or urgency. MUSCULOSKELETAL/RHEUMATOLOGICAL: Denies any joint pain, swelling, or any muscle pain. ENDOCRINE: Denies any polyuria or polydipsia. Active Medications Generic Name Dose Route Start Last Admin Trade Name Freq PRN Reason Stop Dose Admin Albuterol/Ipratropium 3 ml 01/10/24 10:11 Ipratropium-Albuterol 3 Ml Neb INHALATION RT-Q2H PRN Shortness Of Breath Or Wheezing Albuterol/Ipratropium 3 ml 01/10/24 12:00 01/13/24 20:51 Ipratropium-Albuterol 3 Ml Neb INHALATION Not Given RT-QID JOSEPH Alprazolam 0.25 mg 01/09/24 10:56 01/11/24 20:35 Alprazolam 0.25 Mg Tab PO 0.25 mg Q6HR PRN Administration Mild Anxiety Alprazolam 0.5 mg 01/09/24 10:56 01/13/24 20:22 Alprazolam 0.5 Mg Tab PO 0.5 mg Q6HR PRN Administration Moderate Anxiety Amlodipine Besylate 2.5 mg 01/13/24 13:00 01/13/24 13:57 Amlodipine 2.5 Mg Tab PO 2.5 mg DAILY JOSEPH Administration Aspirin 81 mg 01/09/24 09:00 01/13/24 09:04 Aspirin 81 Mg PO 81 mg DAILY JOSEPH Administration Atorvastatin Calcium 40 mg 01/14/24 09:00 Atorvastatin 40 Mg Tab PO DAILY [facility] Budesonide/Formoterol Fumarate 2 puff 01/10/24 20:00 01/13/24 20:51 Symbicort 160-4.5 Mcg Inhaler INHALATION Not Given RT-BID [facility] Carvedilol 12.5 mg 01/13/24 17:30 01/13/24 17:40 Carvedilol 12.5 Mg Tab PO 12.5 mg BID-W/MEALS JOSEPH Administration Clopidogrel Bisulfate 75 mg 01/13/24 12:45 01/13/24 13:56 Clopidogrel 75 Mg Tab PO 75 mg DAILY JOSEPH Administration Dextrose/Water 25 ml 01/09/24 16:22 Dextrose 50% Syringe 50 Ml IVP PER PROTOCOL PRN Hypoglycemia Protocol Dextrose/Water 50 ml 01/09/24 16:22 Dextrose 50% Syringe 50 Ml IVP PER PROTOCOL PRN Hypoglycemia Protocol Dextrose/Water 25 ml 01/12/24 15:31 Dextrose 50% Syringe 50 Ml IVP PER PROTOCOL PRN Hypoglycemia Protocol Dextrose/Water 50 ml 01/12/24 15:31 Dextrose 50% Syringe 50 Ml IVP PER PROTOCOL PRN Hypoglycemia Protocol Docusate Sodium 100 mg 01/10/24 11:06 01/11/24 07:47 Docusate 100 Mg Cap PO 100 mg DAILY PRN Administration Constipation Ezetimibe 10 mg 01/10/24 16:00 01/13/24 09:04 Ezetimibe 10 Mg Tab PO 10 mg DAILY JOSEPH Administration Ceftriaxone Sodium 1 gm/ 50 mls @ 100 mls/hr 01/11/24 22:00 01/13/24 09:04 Sodium Chloride IVPB 100 mls/hr Q24HR JOSEPH Administration Protocol Insulin Aspart 14 unit 01/09/24 17:30 01/13/24 17:39 Insulin Aspart (Novolog) 100 Unit/Ml Vial SQ 14 unit AC-TID JOSEPH Administration Insulin Aspart 0 unit 01/12/24 17:30 01/13/24 20:24 Insulin Aspart (Novolog) 100 Unit/Ml Vial SQ Not Given ACHS [facility] Protocol Insulin Detemir 56 unit 01/09/24 21:00 01/13/24 20:23 Insulin Detemir (Levemir) 100 Unit/Ml Syr SQ 56 unit BID JOSEPH Administration Isosorbide Mononitrate 30 mg 01/13/24 12:45 01/13/24 13:57 Isosorbide Mononitrate Er 30 Mg Tab.Er.24h PO 30 mg DAILY [facility] Administration Morphine Sulfate 4 mg 01/09/24 05:45 01/12/24 20:04 Morphine Sulfate 4 Mg/Ml Syringe IV 4 mg Q4HR PRN Administration Severe Pain (Scale 7 to 10) Multivitamins 1 each 01/09/24 09:00 01/13/24 09:04 Multivitamins, Thera 1 Each Tab PO 1 each DAILY [facility] Administration Mupirocin 1 applic 01/09/24 21:00 01/13/24 20:23 Mupirocin 2% Oint 22 Gm Tube NASAL 01/14/24 21:01 1 applic BID [facility] Administration Naloxone HCl 0.2 mg 01/09/24 05:45 Naloxone 0.4 Mg/Ml 1 Ml Vial IV Q2M PRN Opioid Reversal Nitroglycerin 0.4 mg 01/12/24 12:37 01/12/24 19:15 Nitroglycerin Sl Tabs 0.4 Mg Tab SUBLINGUAL 0.4 mg Q5M PRN Administration Chest Pain Objective - Vital Signs Vital signs: Vital Signs Temp 97.7 F 01/13/24 20:00 Pulse 81 01/13/24 20:00 Resp 20 01/13/24 20:00 BP 131/64 01/13/24 20:00 Pulse Ox 96 01/13/24 20:00 FiO2 21 01/12/24 08:36 Intake & Output 01/13/24 01/13/24 01/14/24 06:59 18:59 06:59 Weight 98.1 kg Other: Voiding Method Bedpan Toilet Toilet # Voids 1 1 - Exam GENERAL: The patient is alert and oriented x3, not in any acute distress. Well developed, well nourished. Patient is anxious HEENT: Pupils are round and equally reacting to light. EOMI. No scleral icterus. No conjunctival pallor. Normocephalic, atraumatic. No pharyngeal erythema. No thyromegaly. CARDIOVASCULAR: S1 and S2 present. No murmurs, rubs, or gallops. PULMONARY: Chest is clear to auscultation, no wheezing , no crackles. Mild limited airway entry ABDOMEN: Soft, nontender, nondistended, normoactive bowel sounds. No palpable organomegaly. MUSCULOSKELETAL: No joint swelling or deformity. EXT mild limited REMITIES: No cyanosis, clubbing, or pedal edema. NEUROLOGICAL: Gross neurological examination did not reveal any focal deficits. SKIN: No rashes. no petechiae. - Labs CBC & Chem 7: 01/13/24 15:07 01/13/24 15:07 Labs: Abnormal Lab Results - Last 24 Hours (Table) 01/13/24 01/13/24 01/13/24 Range/Units 00:20 05:57 09:15 RBC (3.80-5.40) m/uL Hgb (11.4-16.0) gm/dL Hct (34.0-46.0) % MCV (80.0-100.0) fL Lymphocytes # (1.0-4.8) k/uL APTT 63.7 H (22.0-30.0) sec Chloride (98-107) mmol/L BUN (7-17) mg/dL Creatinine (0.52-1.04) mg/dL Glucose (74-99) mg/dL POC Glucose (mg/dL) 122 H (70-110) mg/dL Hemoglobin A1c 9.4 H (<=6.0) % Calcium (8.4-10.2) mg/dL AST (14-36) U/L Total Protein (6.3-8.2) g/dL Albumin (3.5-5.0) g/dL 01/13/24 01/13/24 01/13/24 Range/Units 09:15 11:37 15:07 RBC 3.30 L (3.80-5.40) m/uL Hgb 10.6 L (11.4-16.0) gm/dL Hct 33.7 L (34.0-46.0) % MCV 102.3 H (80.0-100.0) fL Lymphocytes # 0.9 L (1.0-4.8) k/uL APTT 54.3 H (22.0-30.0) sec Chloride (98-107) mmol/L BUN (7-17) mg/dL Creatinine (0.52-1.04) mg/dL Glucose (74-99) mg/dL POC Glucose (mg/dL) 169 H (70-110) mg/dL Hemoglobin A1c (<=6.0) % Calcium (8.4-10.2) mg/dL AST (14-36) U/L Total Protein (6.3-8.2) g/dL Albumin (3.5-5.0) g/dL 01/13/24 01/13/24 01/13/24 Range/Units 15:07 16:05 20:09 RBC (3.80-5.40) m/uL Hgb (11.4-16.0) gm/dL Hct (34.0-46.0) % MCV (80.0-100.0) fL Lymphocytes # (1.0-4.8) k/uL APTT (22.0-30.0) sec Chloride 112 H (98-107) mmol/L BUN 22 H (7-17) mg/dL Creatinine 1.64 H (0.52-1.04) mg/dL Glucose 173 H (74-99) mg/dL POC Glucose (mg/dL) 173 H 140 H (70-110) mg/dL Hemoglobin A1c (<=6.0) % Calcium 8.3 L (8.4-10.2) mg/dL AST 39 H (14-36) U/L Total Protein 5.8 L (6.3-8.2) g/dL Albumin 3.3 L (3.5-5.0) g/dL Assessment and Plan Assessment: Non-STEMI, cardiac cath showing triple-vessel coronary artery disease patient being evaluated for CABG. S/p PCI to LAD in 7 Mild acute COPD exacerbation Liver infiltrate, possible fatty liver, neoplasm cannot be excluded Acute UTI secondary to sensitive E. coli CKD stage III Bilateral internal carotid artery stenosis, right side is occluded and left- sided 50 to 69% Bilateral pulmonary nodule 9 mm Asthma Hypertension Hyperlipidemia Diabetes mellitus History of PE History of stroke Plan: Continue with dual antiplatelet therapy aspirin and Plavix Continue with rest of cardiac medications including PETER inhibitor and beta- gomez. Start ceftriaxone for UTI Resume insulin and insulin sliding scale Cardiology consult Patient is not a candidate for CABG, alternatively she will be treated with stent placement Pulmonary service consult we will consult hematology/oncology service for further recommendation regarding her liver lesion Labs and medication were reviewed.. Continue same treatment. Continue with symptomatic treatment. Resume home medication. Monitor labs and vitals. DVT and GI prophylaxis. Further recommendations as per clinical course of the patient DVT prophylaxis: Subcutaneous heparin GI Prophylaxis: Pepcid PT/OT: Pending Prognosis is guarded
[2024-01-14 00:31] LABS: Appearance,Urine Clear (Clear); Bacteria,Urine Rare /hpf; Bilirubin,Urine Negative (Negative); Blood,Urine Negative (Negative); Color,Urine Light Yellow; Glucose,Urine (UA) Negative (Negative); Hyaline Casts,Urine 3 /lpf (0-2); Ketones,Urine Negative (Negative); Leukocyte Esterase,Urine Small (Negative); Mucus,Urine Rare /hpf; Nitrite,Urine Negative (Negative); PH, Urine 5.5 (5.0-8.0); Protein,Urine 1+ (Negative); RBC,Urine 1 /hpf (0-5); Specific Gravity,Urine 1.018 (1.001-1.035); Squamous Epithelial Cell,Urine 1 /hpf (0-4); Urobilinogen,Urine <2.0 mg/dL (<2.0); WBC,Urine 18 /hpf (0-5)
[2024-01-14 05:49] LABS: Glucose,Whole Blood 132 mg/dL (70-110)
[2024-01-14 09:08] VITALS: RESP 20
[2024-01-14] MEDS: ATORVASTATIN 40 MG TAB PO SCH (09:09)
[2024-01-14 11:17] LABS: Glucose,Whole Blood 145 mg/dL (70-110)
[2024-01-14 11:28] LABS: Appearance,Urine Clear (Clear); Bilirubin,Urine Negative (Negative); Blood,Urine Negative (Negative); Color,Urine Light Yellow; Glucose,Urine (UA) Negative (Negative); Hyaline Casts,Urine 3 /lpf (0-2); Ketones,Urine Negative (Negative); Leukocyte Esterase,Urine Small (Negative); Mucus,Urine Rare /hpf; Nitrite,Urine Negative (Negative); PH, Urine 5.5 (5.0-8.0); Protein,Urine 1+ (Negative); RBC,Urine <1 /hpf (0-5); Squamous Epithelial Cell,Urine 2 /hpf (0-4); Urobilinogen,Urine <2.0 mg/dL (<2.0); WBC,Urine 24 /hpf (0-5)
[2024-01-14 11:35] VITALS: BP 138/63; TEMP 98
[2024-01-14 11:39] LABS: HCT 34.4 % (34.0-46.0); HGB 10.7 gm/dL (11.4-16.0); MCH 31.6 pg (25.0-35.0); MCHC 31.2 g/dL (31.0-37.0); MCV 101.4 fL (80.0-100.0); Macrocytosis Slight; Mean Platelet Volume 8.7; Platelet Count 214 k/uL (150-450); RDW 14.8 % (11.5-15.5); WBC 6.3 k/uL (3.8-10.6)
[2024-01-14 11:40] LABS: African American GFR (CKD) 35 (>60 ml/min/1.73 sqM); Anion Gap 7 mmol/L; Blood Urea Nitrogen 26 mg/dL (7-17); Calcium 8.2 mg/dL (8.4-10.2); Carbon Dioxide 22 mmol/L (22-30); Chloride 112 mmol/L (98-107); Glucose 145 mg/dL (74-99); Non-African American GFR(CKD) 30 (>60 ml/min/1.73 sqM); Potassium 4.4 mmol/L (3.5-5.1); Sodium 141 mmol/L (137-145)
--- NOTE | 2024-01-14 14:31 | P.PN ---
Subjective Progress Note Date: 01/14/24 HISTORY OF PRESENTING ILLNESS This is a pleasant 73-year-old with past medical history significant for hyp ertension, hyperlipidemia, diabetes mellitus type 2, carotid artery disease, chronic kidney disease. She does not follow with a wood chopper. She has strong family history of CAD with everyone in her family dying from heart disease. She was a prior smoker however quit 10-20 years ago. She has not seen a wood chopper. She also has asthma and takes inhalers. Over last 1-2 months she has been having frequent episodes of chest pain and dyspnea with minimal exertion. She would take an inhaler or take a hot shower and it would usually improved. She was attributed this to asthma. She has more significant episode yesterday where symptoms did not improve and had persistent chest pain until she went to [facility] and was given nitro and morphine with improvement in her pain. She states currently her chest pain is completely resolved. Troponins elevated at 1.2, 1.5. Creatinine is 1.6 which appears at her baseline 1.5-1.7 per history. 01/09 She is status post left heart cath 01/09/2024 which revealed CAD including 80% mid LAD, 99% proximal circumflex and 100% subtotally occluded RCA stenosis, LVEDP was 27. She was referred for surgical evaluation for CABG however, she was deemed to be high risk and was recommended for PCI versus medical management. Echocardiogram shows EF 55-60%, RVSP 44. Carotid ultrasound showed right ICA occlusion and left ICA 50-69% stenosis. She denies any chest pain, reports her shortness of breath is better. 01/10 She had 1 brief episode of "chest irritation". Shortness of breath stable. 01/11 Patient is scheduled for PCI this afternoon. Patient is complaining of wheezing today. She did receive nebulizer treatments this morning. She is continued on a heparin drip. She denies having any chest pain. Blood pressure 122/69, heart rate 79, pulse ox 89% on room air. 01/12 Yesterday, patient underwent PCI with Dr. Hahn. Patient had an episode of chest pain this morning and at that time her vital signs were stable. Pulse ox was 93% on 2 L and was increased to 3 L. EKG did not show any acute changes. Patient complains of chest pain that develops when she has Nitropaste put on and starts on the left side of her chest on number 8 out of 10. She denies any chest pain at this time. Nitropaste will be discontinued. Blood pressure 143/72, heart rate 86, pulse ox 95% on 4 L. 01/13 Patient apparently had some breathing problems with chest pain yesterday but better now. She states that there was concern about a mass on her liver which may be worked up as an outpatient. Her right wrist is sore but no sign of hematoma. Repeat chest x-ray reveals no acute process. COPD changes. Blood pressure 138/63, heart rate 76, pulse ox 95% on 2 L. Repeat blood work reveals hemoglobin 10.7, BUN 26 creatinine 1.64 PHYSICAL EXAMINATION Vital signs reviewed. CONSTITUTIONAL: No apparent distress. HEENT: Head is normocephalic. Pupils are equal, round. Sclerae anicteric. Mucous membranes of the mouth are moist. No JVD. No carotid bruit. CHEST EXAMINATION: Scattered expiratory wheeze. No chest wall tenderness is noted on palpation or with deep breathing. HEART EXAMINATION: Regular rate and rhythm. S1, S2 heard. No murmurs, gallops or rub. ABDOMEN: Soft, nontender. Positive bowel sounds. EXTREMITIES: 2+ peripheral pulses, no lower extremity edema and no calf tenderness. NEUROLOGIC EXAMINATION: Patient is awake, alert and oriented x3. ASSESSMENT NSTEMI with type I etiology CAD including 80% mid LAD, 99% proximal circumflex and 100% subtotally occluded RCA stenosis Chest pain, dyspnea with exertion consistent with angina Diabetes mellitus type 2 Hypertension Hyperlipidemia Carotid artery disease Family history of CAD Remote tobacco abuse Asthma PLAN Continue atorvastatin to 40 mg Continue Plavix 75 mg daily, add amlodipine 2.5 mg daily, Coreg 12.5 mg twice daily, and Imdur 30 mg daily Continue patient on aspirin 81 mg daily, Zetia 10 mg daily Patient is cleared from cardiology for discharge and may follow-up with Dr. Hahn in 1 week. Nurse practitioner note has been reviewed, I agree with documented findings and plan of care. Patient was seen and examined. Objective - Vital Signs Vital signs: Vital Signs Temp 97.5 F L 01/14/24 08:00 Pulse 84 01/14/24 10:17 Resp 20 01/14/24 08:00 BP 118/58 01/14/24 08:00 Pulse Ox 94 L 01/14/24 08:00 FiO2 21 01/12/24 08:36 Intake & Output 01/13/24 01/14/24 01/14/24 18:59 06:59 18:59 Intake Total 118 Output Total 100 Balance -100 118 Weight 58 kg Intake: Oral 118 Output: Urine 100 Other: Voiding Method Toilet Toilet # Voids 1 - Labs CBC & Chem 7: 01/14/24 11:15 01/14/24 11:15 Labs: Abnormal Lab Results - Last 24 Hours (Table) 01/13/24 01/13/24 01/13/24 Range/Units 09:15 11:37 15:07 RBC 3.30 L (3.80-5.40) m/uL Hgb 10.6 L (11.4-16.0) gm/dL Hct 33.7 L (34.0-46.0) % MCV 102.3 H (80.0-100.0) fL Lymphocytes # 0.9 L (1.0-4.8) k/uL Chloride (98-107) mmol/L BUN (7-17) mg/dL Creatinine (0.52-1.04) mg/dL Glucose (74-99) mg/dL POC Glucose (mg/dL) 169 H (70-110) mg/dL Hemoglobin A1c 9.4 H (<=6.0) % Calcium (8.4-10.2) mg/dL AST (14-36) U/L Total Protein (6.3-8.2) g/dL Albumin (3.5-5.0) g/dL Urine Protein (Negative) Ur Leukocyte Esterase (Negative) Urine WBC (0-5) /hpf Urine WBC Clumps (None) /hpf Urine Bacteria (None) /hpf Hyaline Casts (0-2) /lpf Urine Mucus (None) /hpf 01/13/24 01/13/24 01/13/24 Range/Units 15:07 16:05 20:09 RBC (3.80-5.40) m/uL Hgb (11.4-16.0) gm/dL Hct (34.0-46.0) % MCV (80.0-100.0) fL Lymphocytes # (1.0-4.8) k/uL Chloride 112 H (98-107) mmol/L BUN 22 H (7-17) mg/dL Creatinine 1.64 H (0.52-1.04) mg/dL Glucose 173 H (74-99) mg/dL POC Glucose (mg/dL) 173 H 140 H (70-110) mg/dL Hemoglobin A1c (<=6.0) % Calcium 8.3 L (8.4-10.2) mg/dL AST 39 H (14-36) U/L Total Protein 5.8 L (6.3-8.2) g/dL Albumin 3.3 L (3.5-5.0) g/dL Urine Protein (Negative) Ur Leukocyte Esterase (Negative) Urine WBC (0-5) /hpf Urine WBC Clumps (None) /hpf Urine Bacteria (None) /hpf Hyaline Casts (0-2) /lpf Urine Mucus (None) /hpf 01/13/24 01/14/24 Range/Units 23:50 05:40 RBC (3.80-5.40) m/uL Hgb (11.4-16.0) gm/dL Hct (34.0-46.0) % MCV (80.0-100.0) fL Lymphocytes # (1.0-4.8) k/uL Chloride (98-107) mmol/L BUN (7-17) mg/dL Creatinine (0.52-1.04) mg/dL Glucose (74-99) mg/dL POC Glucose (mg/dL) 132 H (70-110) mg/dL Hemoglobin A1c (<=6.0) % Calcium (8.4-10.2) mg/dL AST (14-36) U/L Total Protein (6.3-8.2) g/dL Albumin (3.5-5.0) g/dL Urine Protein 1+ H (Negative) Ur Leukocyte Esterase Small H (Negative) Urine WBC 18 H (0-5) /hpf Urine WBC Clumps Rare H (None) /hpf Urine Bacteria Rare H (None) /hpf Hyaline Casts 3 H (0-2) /lpf Urine Mucus Rare H (None) /hpf
--- NOTE | 2024-01-14 15:59 | P.CONS ---
History of Present Illness - Reason for Consult Consult date: 01/14/24 abn liver Requesting physician: Benjie Goodrich - Chief Complaint NSTEMI. Consult for abnormal liver appearance - History of Present Illness Ms. Carolina is a 73-year-old female currently admitted for NSTEMI, status post 2 stents, on anticoagulation who we have been asked to see because of an incidental finding on CT of the chest, done as part of preop workup for open heart surgery. It reports visualized upper abdomen shows heterogenous low- density appearance to the right liver lobe, possible underlying fatty infiltration, infiltrative process versus neoplasm difficult to exclude. 9 mm bilateral nodularity to the inferior lingula, recommended a 3-month follow-up with a CT of the chest to exclude a suspicious pulmonary nodule. Ultrasound of the liver was done reporting heterogenous and lobular with increased attenuation, hepatic steatosis. Patient states that she has been told in the past that she has a large liver. She denies any history of hepatitis B, C, chronic EtOH use, she does have pain with palpation in the right upper quadrant, denies pain otherwise. No constitutional symptoms, she reports nausea "all my life", no acute changes in bowel or bladder habits. No unusual bleeding or bruising. Review of Systems 14 point review of systems is negative except as stated in HPI Past Medical History Past Medical History: Atrial Fibrillation, Asthma, COPD, CVA/TIA, Diabetes Mellitus, Eye Disorder, Hyperlipidemia, Hypertension, Pulmonary Embolus (PE), Renal Disease Additional Past Medical History / Comment(s): vaginal dysplasia ,carotid artery blockage, kidney stones, stage 3 kidney disease, macular degeneration,. pt states had covid 2019 History of Any Multi-Drug Resistant Organisms: None Reported Past Surgical History: Appendectomy, Cholecystectomy, Tonsillectomy, Tubal Lig ation Additional Past Surgical History / Comment(s): lithotripsy, elmer cataract surgery, eyelid issues, uterine laser ablation with 3 months interferon, hemorrhoidectomy, 2 C-sections, oophorectomy, carotid sx x3 Past Anesthesia/Blood Transfusion Reactions: Previous Problems w/ Anesthesia Additional Past Anesthesia/Blood Transfusion Reaction / Comm: takes longer time to wake up after anesthesia. request not to be yelled at to wake up Past Psychological History: Anxiety, PTSD Smoking Status: Former smoker Past Alcohol Use History: None Reported Past Drug Use History: None Reported - Past Family History Sister(s) Family Medical History: Cancer Additional Family Medical History / Comment(s): lung spread to brain Mother Family Medical History: Congestive Heart Failure (CHF), Diabetes Mellitus Father History Unknown: Yes Family Medical History: Myocardial Infarction (VT) Medications and Allergies Home Medications Medication Instructions Recorded Confirmed Type atenoloL [Tenormin] 25 mg PO BID 04/13/15 01/09/24 History Albuterol Inhaler [Ventolin Hfa 2 puff INHALATION RT-Q4H PRN 03/12/21 01/09/24 History Inhaler] Fluticasone Propion/Salmeterol 1 puff INHALATION RT-BID 01/09/24 01/09/24 History [Wixela 250-50 Inhub] Insulin Aspart [NovoLOG Flexpen] 14 units SQ AC-TID 01/09/24 01/09/24 History Insulin Detemir [Levemir Flexpen] 56 units SQ BID 01/09/24 01/09/24 History Levocetirizine Dihydrochloride 5 mg PO HS 01/09/24 01/09/24 History [Xyzal] Multivitamins, Thera [Multivitamin 1 tab PO DAILY 01/09/24 01/09/24 History (formulary)] Vit C/E/Zn/Coppr/Lutein/Zeaxan 1 cap PO DAILY 01/09/24 01/09/24 History [Preservision Areds 2 Softgel] Aspirin 81 mg PO DAILY 30 Days #30 tab 01/14/24 Rx Atorvastatin [Lipitor] 40 mg PO DAILY #30 tab 01/14/24 Rx Clopidogrel [Plavix] 75 mg PO DAILY #30 tab 01/14/24 Rx Docusate [Colace] 100 mg PO DAILY PRN 5 Days #10 cap 01/14/24 Rx Ezetimibe [Zetia] 10 mg PO DAILY #30 tab 01/14/24 Rx Isosorbide Mononitrate ER [Imdur] 30 mg PO DAILY #30 tab 01/14/24 Rx amLODIPine [Norvasc] 2.5 mg PO DAILY #30 tab 01/14/24 Rx carvediloL [Coreg*] 12.5 mg PO BID-W/MEALS #60 tab 01/14/24 Rx cefUROXime axetiL [Ceftin] 500 mg PO BID 5 Days #10 tab 01/14/24 Rx Allergies Allergy/AdvReac Type Severity Reaction Status Date / Time latex Allergy Rash/Hives Verified 01/09/24 07:01 Sulfa (Sulfonamide Allergy Rash/Hives Verified 01/09/24 07:01 Antibiotics) Physical Exam Vitals: Vital Signs Temp Pulse Pulse Pulse Resp BP Pulse Ox 01/14/24 10:17 84 01/14/24 10:01 86 01/14/24 08:00 97.5 F L 74 20 118/58 94 L 01/14/24 03:34 97.9 F 78 22 112/62 01/14/24 01:55 86 86 22 01/13/24 23:41 98.1 F 81 20 115/56 94 L 01/13/24 20:00 97.7 F 81 86 20 131/64 96 01/13/24 16:08 82 01/13/24 16:01 96 01/13/24 16:00 98.2 F 83 80 20 132/65 98 01/13/24 14:00 86 86 22 95 01/13/24 12:30 22 92 L 01/13/24 12:00 98.0 F 86 22 143/72 88 L 01/13/24 11:54 82 01/13/24 11:41 85 Intake and Output 01/13/24 01/14/24 01/14/24 22:59 06:59 14:59 Intake Total 118 Output Total 100 Balance -100 118 Intake: Oral 118 Output: Urine 100 Other: Voiding Method Toilet Toilet Weight 58 kg - Constitutional General appearance: average body habitus, cooperative, no acute distress - EENT Eyes: anicteric sclerae, EOMI ENT: hearing grossly normal, normal oropharynx - Neck Neck: no lymphadenopathy - Respiratory Respiratory: bilateral: CTA - Cardiovascular Rhythm: regular Heart sounds: normal: S1, S2 Abnormal Heart Sounds: no systolic murmur, no diastolic murmur, no rub, no S3 Gallop, no S4 Gallop, no click, no other leg Peripheral Edema: bilateral: None - Gastrointestinal General gastrointestinal: no absent bowel sounds, no decreased bowel sounds, no distended, no hepatomegaly, no hyperactive bowel sounds, normal bowel sounds, no organomegaly, no rigid, no scaphoid, soft, no splenomegaly, no tenderness, no umbilical hernia, no ventral hernia - Integumentary Integumentary: normal - Neurologic Neurologic: CNII-XII intact - Musculoskeletal Musculoskeletal: strength equal bilaterally - Psychiatric Psychiatric: A&O x's 3, appropriate affect, intact judgment & insight Results CBC & Chem 7: 01/14/24 11:15 01/14/24 11:15 Labs: Abnormal Lab Results - Last 24 Hours (Table) 01/13/24 01/13/24 01/13/24 Range/Units 09:15 11:37 15:07 RBC 3.30 L (3.80-5.40) m/uL Hgb 10.6 L (11.4-16.0) gm/dL Hct 33.7 L (34.0-46.0) % MCV 102.3 H (80.0-100.0) fL Lymphocytes # 0.9 L (1.0-4.8) k/uL Chloride (98-107) mmol/L BUN (7-17) mg/dL Creatinine (0.52-1.04) mg/dL Glucose (74-99) mg/dL POC Glucose (mg/dL) 169 H (70-110) mg/dL Hemoglobin A1c 9.4 H (<=6.0) % Calcium (8.4-10.2) mg/dL AST (14-36) U/L Total Protein (6.3-8.2) g/dL Albumin (3.5-5.0) g/dL Urine Protein (Negative) Ur Leukocyte Esterase (Negative) Urine WBC (0-5) /hpf Urine WBC Clumps (None) /hpf Urine Bacteria (None) /hpf Hyaline Casts (0-2) /lpf Urine Mucus (None) /hpf 01/13/24 01/13/24 01/13/24 Range/Units 15:07 16:05 20:09 RBC (3.80-5.40) m/uL Hgb (11.4-16.0) gm/dL Hct (34.0-46.0) % MCV (80.0-100.0) fL Lymphocytes # (1.0-4.8) k/uL Chloride 112 H (98-107) mmol/L BUN 22 H (7-17) mg/dL Creatinine 1.64 H (0.52-1.04) mg/dL Glucose 173 H (74-99) mg/dL POC Glucose (mg/dL) 173 H 140 H (70-110) mg/dL Hemoglobin A1c (<=6.0) % Calcium 8.3 L (8.4-10.2) mg/dL AST 39 H (14-36) U/L Total Protein 5.8 L (6.3-8.2) g/dL Albumin 3.3 L (3.5-5.0) g/dL Urine Protein (Negative) Ur Leukocyte Esterase (Negative) Urine WBC (0-5) /hpf Urine WBC Clumps (None) /hpf Urine Bacteria (None) /hpf Hyaline Casts (0-2) /lpf Urine Mucus (None) /hpf 01/13/24 01/14/24 01/14/24 Range/Units 23:50 05:40 11:15 RBC (3.80-5.40) m/uL Hgb (11.4-16.0) gm/dL Hct (34.0-46.0) % MCV (80.0-100.0) fL Lymphocytes # (1.0-4.8) k/uL Chloride (98-107) mmol/L BUN (7-17) mg/dL Creatinine (0.52-1.04) mg/dL Glucose (74-99) mg/dL POC Glucose (mg/dL) 132 H 145 H (70-110) mg/dL Hemoglobin A1c (<=6.0) % Calcium (8.4-10.2) mg/dL AST (14-36) U/L Total Protein (6.3-8.2) g/dL Albumin (3.5-5.0) g/dL Urine Protein 1+ H (Negative) Ur Leukocyte Esterase Small H (Negative) Urine WBC 18 H (0-5) /hpf Urine WBC Clumps Rare H (None) /hpf Urine Bacteria Rare H (None) /hpf Hyaline Casts 3 H (0-2) /lpf Urine Mucus Rare H (None) /hpf CT scan - chest: report reviewed US - abdomen: report reviewed Assessment and Plan (1) Abnormal liver diagnostic imaging Current Visit: Yes Status: Acute Priority: High Code(s): R93.2 - ABNORMAL FINDINGS ON DX IMAGING OF LIVER AND BILIARY TRACT SNOMED Code(s): 231727944 Plan: Abnormal liver contour on imaging -Patient states that she has been told she has a large liver in the past. She has no formal diagnosis of any liver disease -It was discussed with patient that the concern is, because of abnormal look to the liver, possibly there being an underlying mass that cannot be seen, or something that may be malignant. -Recommendation would be for MRI imaging of the liver but, patient has chronic kidney disease, creatinine is chronically elevated. -It was discussed with the patient that for right now we will start with AFP tumor marker. If low/normal, can follow with US liver to assess for changes. If elevated, that could warrant a biopsy. We will monitor renal function and schedule an MRI, if able. Patient questions were answered to her satisfaction. She verbalizes understanding the plan. -Case was discussed with attending Doctor attests: I performed a history and physical examination of this patient, developed impression and plan of care. Discussed with dictator. I agree with dictators note, documented as a scribe.
[2024-01-14 16:02] VITALS: PULSE 93
--- NOTE | 2024-01-14 18:31 | P.PN ---
Subjective Progress Note Date: 01/14/24 This is a very pleasant 73-year-old female patient with a history of hypertension, diabetes mellitus, anxiety, atrial fibrillation, hyperlipidemia, chronic obstructive pulmonary disease, 52-year smoking history. She had presented to [facility] with chest pain on 01/08/2024. Workup there did reveal a non-ST segment elevation myocardial infarction and she was transferred here on 01/09/2024 for further workup. Cardiac catheterization revealed coronary artery disease with 80% mid LAD lesion, 99% proximal circumflex lesion and 100% totally occluded RCA stenosis. She is being worked up for possible coronary artery bypass grafting. CT scan of the chest revealed COPD with moderate emphysema. Extensive three-vessel coronary artery calcifications. 9 mm bilateral nodularity inferior lingula. Mild to moderate apical scarring. Very heterogenous appearance to the right liver lobe may be due to fatty infiltration however neoplasm is not excluded. Carotid Doppler reveals right ICA occlusion. Flow velocities in the proximal left ICA suggesting 50 to 69% stenosis. White count 7.2. Hemoglobin 11.2. Platelets 199. Sodium 141. Potassium 4.0. Bicarb 12. BUN 35. Creatinine 1.66. Glucose 382. AST 26. ALT 11. Troponin 1.24, 1.59, 1.46. She is currently resting fairly comfortably in bed. Maintaining O2 saturations in the 90s on room air. Afebrile. Hemodynamically stable. She is continued on a heparin drip. Normal saline at 75 MLS per hour. Progress note dated January 11, 2024. The patient is seen today again in room 371. The patient was found to have multivessel coronary artery disease, and was admitted with a non-ST segment elevation myocardial infarction. The patient is currently being evaluated by cardiothoracic surgery for bypass surgery. A date has not yet been set. Currently, the patient is on room air. The patient denies any shortness of breath or difficulty breathing. She is receiving IV heparin. Current laboratory data includes a white count 6.3, hemoglobin 11, hematocrit 33.1, and platelet count 187,000. PTT is 41.2. Sodium 140, potassium 4.1, chloride 114, CO2 20, BUN 23, creatinine 1.46, and glucose 144. 01/12/2024, the patient is being seen for a follow-up. Patient is scheduled to undergo cardiac catheterization and PCI. The patient underwent a left sided cardiac catheter 01/01/2024 revealing coronary artery disease including an 80% mid LAD lesion, 99% circumflex lesion and 100% subtotal occlusion of the RCA with an elevated left ventricular end-diastolic pressure. The patient was referred for bypass surgery and the patient was found to be a high risk for bypass and the patient was recommended to undergo PCI and medical management. Preserved LV function with an ejection fraction of 55 to 60%. Carotid artery showed some left ICA and right ICA stenosis in the order of 50 to 69%. The patient is free of any chest pain. The patient is on 2 L of oxygen by nasal cannula. Patient remains on aspirin. Patient remains on atenolol 25 mg twice a day and statins and Zetia. Other comorbid conditions include hypertension, diabetes mellitus type 2, COPD, hyperlipidemia and atrial fibrillation. The patient carries [id number] smoking history. 01/13/24, the patient is being seen for a follow-up. The patient underwent c ardiac catheterization and PCI yesterday by interventional cardiology. The patient is complaining of some chest discomfort and numbness on the left side of the chest and arm. EKG was done and showed no acute ischemic changes. She is currently on 40s of oxygen by nasal cannula and she remains on IV heparin. Her cardiac rhythm is still sinus and the patient remains hemodynamically stable. She is slightly bronchospastic and wheezy. She is on Symbicort and DuoNeb updrafts [id number]. She is on a combination of aspirin and Plavix. She is also on Coreg 12.5 mg p.o. twice a day. Levemir insulin 56 units twice daily and 14 units of NovoLog with meals and/scale coverage. Cardiology remains on the case. Echocardiogram that was done on 01/10/2024 showed preserved LV function without any significant valvular abnormalities and the patient's RVSP was 44. On today's evaluation of 17,024, the patient is free of any chest pain. She continues to have some exertional dyspnea. No chest pain. She is postcardiac catheterization and stenting of the LAD and the patient is currently on a combination of aspirin and Plavix. The patient is also on atenolol 25 mg p.o. twice a day. The white cell count is 6.3 with a hemoglobin 10.7 and a platelet count of 214. BUN is 26 with a creatinine of 1.64. There is sodium levels at 141 with a potassium level of 4.4. The oxygenation status is stable. The patient is pulse oxing at 95% on 2 L of oxygen by nasal cannula. She is known to have underlying COPD. She has been maintained on Wixela and help on outpatient basis. No home O2. She has also always a risk inhaler to be used on an as-needed basis. Her most recent chest x-ray from 01/13/2024 showed COPD without any acute cardiopulmonary process. Her echocardiogram from 01/10/2024 sh owed a preserved LV function, mild MR, mild TR, RVSP of 44. Ultrasound of the liver showed some hepatomegaly and heterogeneous appearance of the liver and MRI of the liver will be obtained later on an outpatient basis. Objective - Vital Signs Vital signs: Vital Signs Temp 98 F 01/14/24 11:33 Pulse 93 01/14/24 16:02 Resp 20 01/14/24 11:33 BP 138/63 01/14/24 11:33 Pulse Ox 90 L 01/14/24 16:02 FiO2 21 01/12/24 08:36 Intake & Output 01/13/24 01/14/24 01/14/24 18:59 06:59 18:59 Intake Total 236 Output Total 100 Balance -100 236 Weight 58 kg Intake: Oral 236 Output: Urine 100 Other: Voiding Method Toilet Toilet # Voids 1 1 - Exam No acute distress, oriented 3. 2 L of oxygen by nasal cannula HEENT examination is grossly unremarkable. Mucous membranes are moist. No oral lesions. Neck supple. Full range of motion. No adenopathy thyromegaly or neck vein distention. Cardiovascular examination reveals regular rhythm rate. S1-S2 normal. No S3 or S4. No discernible murmur noted. Lungs reveal clear breath sounds. Breath sounds are equal bilaterally. No adventitious lung sounds including wheezes rhonchi or crackles. Abdomen soft bowel sounds are heard. No masses or tenderness. Extremities are intact. No cyanosis clubbing or edema. Skin is without rash or lesion. Neurologic examination is brief but nonfocal. - Labs CBC & Chem 7: 01/14/24 11:15 01/14/24 11:15 Labs: Abnormal Lab Results - Last 24 Hours (Table) 01/13/24 01/13/24 01/14/24 Range/Units 20:09 23:50 05:40 RBC (3.80-5.40) m/uL Hgb (11.4-16.0) gm/dL MCV (80.0-100.0) fL Chloride (98-107) mmol/L BUN (7-17) mg/dL Creatinine (0.52-1.04) mg/dL Glucose (74-99) mg/dL POC Glucose (mg/dL) 140 H 132 H (70-110) mg/dL Calcium (8.4-10.2) mg/dL Urine Protein 1+ H (Negative) Ur Leukocyte Esterase Small H (Negative) Urine WBC 18 H (0-5) /hpf Urine WBC Clumps Rare H (None) /hpf Urine Bacteria Rare H (None) /hpf Hyaline Casts 3 H (0-2) /lpf Urine Mucus Rare H (None) /hpf 01/14/24 01/14/24 01/14/24 Range/Units 11:01 11:15 11:15 RBC 3.40 L (3.80-5.40) m/uL Hgb 10.7 L (11.4-16.0) gm/dL MCV 101.4 H (80.0-100.0) fL Chloride 112 H (98-107) mmol/L BUN 26 H (7-17) mg/dL Creatinine 1.64 H (0.52-1.04) mg/dL Glucose 145 H (74-99) mg/dL POC Glucose (mg/dL) (70-110) mg/dL Calcium 8.2 L (8.4-10.2) mg/dL Urine Protein 1+ H (Negative) Ur Leukocyte Esterase Small H (Negative) Urine WBC 24 H (0-5) /hpf Urine WBC Clumps (None) /hpf Urine Bacteria (None) /hpf Hyaline Casts 3 H (0-2) /lpf Urine Mucus Rare H (None) /hpf 01/14/24 Range/Units 11:15 RBC (3.80-5.40) m/uL Hgb (11.4-16.0) gm/dL MCV (80.0-100.0) fL Chloride (98-107) mmol/L BUN (7-17) mg/dL Creatinine (0.52-1.04) mg/dL Glucose (74-99) mg/dL POC Glucose (mg/dL) 145 H (70-110) mg/dL Calcium (8.4-10.2) mg/dL Urine Protein (Negative) Ur Leukocyte Esterase (Negative) Urine WBC (0-5) /hpf Urine WBC Clumps (None) /hpf Urine Bacteria (None) /hpf Hyaline Casts (0-2) /lpf Urine Mucus (None) /hpf Assessment and Plan Plan: Acute Non-ST segment elevation myocardial infarction, severe triple-vessel disease including an 80% stenosis at the mid LAD, 99% proximal circumflex stenosis and 100% subtotally occluded RCA. The patient underwent cardiac catheterization and PCI of the LAD and she is free of any chest pain for now.. Remains on aspirin and Plavix. EKG findings are essentially nonspecific. No acute ischemic changes. chronic stage III kidney disease and the patient's creatinine is stable at 1.6 Hyperlipidemia. Hypertension. Diabetes mellitus type II Chronic obstructive pulmonary disease. FEV1 value 1.5 L / 52% of predicted. Chronic tobacco dependence of 52 years, quit 10 years ago. Right internal carotid artery occlusion. Chronic kidney disease, stage III. History of anxiety/PTSD. Plan: Titrate oxygen flow to maintain saturation above 90%, currently on 2 L of oxygen by nasal cannula. Evaluate for home O2. Obtain a follow-up chest x-ray and is consistent with COPD. Continue Wixela and have on outpatient basis Continue DuoNeb updrafts Continue aspirin and Plavix Continue Coreg 12.5 mg twice a day Continue Lipitor and Zetia Monitor renal function, currently stable Possible discharge home today after being evaluated for home O2.
--- NOTE | 2024-01-15 06:41 | P.DS ---
Providers Date of admission: 01/09/24 05:45 Attending physician: Claudia Zarco Consults: 01/09/24 05:45 Consult Physician Urgent Consulting Provider: [facility] Consult Reason/Comments: nstemi Do you want consulting provider notified?: Yes 01/09/24 13:45 Consult Physician Routine Consulting Provider: Mynor Thomason Consult Reason/Comments: re: CABG Do you want consulting provider notified?: Yes 01/09/24 16:46 Consult Physician Routine Consulting Provider: Jai Ferreira Consult Reason/Comments: Pulmonary Management Do you want consulting provider notified?: Yes, Notify in am 01/13/24 22:09 Consult Physician Routine Consulting Provider: Avila Pal Consult Reason/Comments: liver lesion , possible mass Do you want consulting provider notified?: Yes, Notify in am Primary care physician: Jai [facility] Course: Diagnoses: Non-STEMI, cardiac cath showing triple-vessel coronary artery disease patient being evaluated for CABG. S/p PCI to LAD in 01/12 Mild acute COPD exacerbation Liver infiltrate, possible fatty liver, neoplasm cannot be excluded. Patient will follow-up with Dr. Pal as an outpatient and PCP as well Acute UTI secondary to sensitive E. coli CKD stage III Bilateral internal carotid artery stenosis, right side is occluded and left- sided 50 to 69% Bilateral pulmonary nodule 9 mm Asthma Hypertension Hyperlipidemia Diabetes mellitus History of PE History of stroke Hospital course: This is a pleasant 33 years old female with past medical history of multiple medical problems as below. She was transferred from [facility] for chest pain and diagnosed today with non-STEMI. Patient has been having breathing difficulty even with exertional thought Cardiovascular surgery team were consulted for possible CABG however patient found to be not a very good surgical candidate for surgical procedure. Machine Oiler had to put the stent in the LAD on 01/12. After the procedure patient was doing well with no chest pain or dyspnea. No other new complaint Sewing Teacher evaluated the patient and cleared her for discharge Also hematology/oncology team were consulted for possible liver mass but per my discussion with their team since patient has kidney disease MRI with contrast cannot be done therefore we are going to order some tumor markers and follow-up outpatient for possible surveillance and further workup. Patient informed about the possibility of liver mass and the need to follow-up with Dr. Pal in 7 to 10 days after discharge and she agrees. I called her PCP Dr. Carrillo office and I talked to the nurse practitioner who usually sees her Bria Gauthier and I discussed the case with her including the possibility of the liver mass and the need to follow-up with oncologist Dr. Muñoz and she currently took a lot of these. Patient was cleared for discharge by all consultants including tin recovery worker, bread packer and oncologist Problems and management plan were discussed with the patient and he verbalized understanding and acceptance Patient was found stable and can be discharged home in guarded prognosis however he needs follow-up as an outpatient. Patient was instructed to follow up with PCP within one week and patient agrees Patient instructed to follow-up with Dr. Montiel in 7 to 10 days Patient was instructed to follow-up with Dr. Hahn in 1 week after discharge Patient was instructed to follow-up with bread packer Dr. Ferreira in 2 to 3 weeks after discharge and she agrees Physical exam Gen: patient is a AAOx3, no distress CVS: S1-S2, RRR, no murmur Lungs: B/L CTA, no wheezing Abdomen: soft, no distention, no tenderness, positive bowel sounds Extremity: no leg edema or induration Time spent more than 35 minutes Patient Condition at Discharge: Stable Plan - Discharge Summary Discharge Rx Participant: No New Discharge Prescriptions: New cefUROXime axetiL [Ceftin] 500 mg PO BID 5 Days #10 tab carvediloL [Coreg*] 12.5 mg PO BID-W/MEALS #60 tab Docusate [Colace] 100 mg PO DAILY PRN 5 Days #10 cap PRN Reason: Constipation Isosorbide Mononitrate ER [Imdur] 30 mg PO DAILY #30 tab Atorvastatin [Lipitor] 40 mg PO DAILY #30 tab amLODIPine [Norvasc] 2.5 mg PO DAILY #30 tab Clopidogrel [Plavix] 75 mg PO DAILY #30 tab Ezetimibe [Zetia] 10 mg PO DAILY #30 tab Continue atenoloL [Tenormin] 25 mg PO BID Levocetirizine Dihydrochloride [Xyzal] 5 mg PO HS Vit C/E/Zn/Coppr/Lutein/Zeaxan [Preservision Areds 2 Softgel] 1 cap PO DAILY Insulin Aspart [NovoLOG Flexpen] 14 units SQ AC-TID Fluticasone Propion/Salmeterol [Wixela 250-50 Inhub] 1 puff INHALATION RT-BID Aspirin 81 mg PO DAILY 30 Days #30 tab Albuterol Inhaler [Ventolin Hfa Inhaler] 2 puff INHALATION RT-Q4H PRN PRN Reason: Dyspnea Multivitamins, Thera [Multivitamin (formulary)] 1 tab PO DAILY Insulin Detemir [Levemir Flexpen] 56 units SQ BID Discharge Medication List atenoloL [Tenormin] 25 mg PO BID 04/13/15 [History] Albuterol Inhaler [Ventolin Hfa Inhaler] 2 puff INHALATION RT-Q4H PRN 03/12/21 [History] Fluticasone Propion/Salmeterol [Wixela 250-50 Inhub] 1 puff INHALATION RT-BID 01/09/24 [History] Insulin Aspart [NovoLOG Flexpen] 14 units SQ AC-TID 01/09/24 [History] Insulin Detemir [Levemir Flexpen] 56 units SQ BID 01/09/24 [History] Levocetirizine Dihydrochloride [Xyzal] 5 mg PO HS 01/09/24 [History] Multivitamins, Thera [Multivitamin (formulary)] 1 tab PO DAILY 01/09/24 [History] Vit C/E/Zn/Coppr/Lutein/Zeaxan [Preservision Areds 2 Softgel] 1 cap PO DAILY 01/09/24 [History] Aspirin 81 mg PO DAILY 30 Days #30 tab 01/14/24 [Rx] Atorvastatin [Lipitor] 40 mg PO DAILY #30 tab 01/14/24 [Rx] Clopidogrel [Plavix] 75 mg PO DAILY #30 tab 01/14/24 [Rx] Docusate [Colace] 100 mg PO DAILY PRN 5 Days #10 cap 01/14/24 [Rx] Ezetimibe [Zetia] 10 mg PO DAILY #30 tab 01/14/24 [Rx] Isosorbide Mononitrate ER [Imdur] 30 mg PO DAILY #30 tab 01/14/24 [Rx] amLODIPine [Norvasc] 2.5 mg PO DAILY #30 tab 01/14/24 [Rx] carvediloL [Coreg*] 12.5 mg PO BID-W/MEALS #60 tab 01/14/24 [Rx] cefUROXime axetiL [Ceftin] 500 mg PO BID 5 Days #10 tab 01/14/24 [Rx] Follow up Appointment(s)/Referral(s): Avila Pal [STAFF PHYSICIAN] - 10 Days (The office will call with an appointment time and date. possible liver mass) Guzman Hahn DO [STAFF PHYSICIAN] - 1 Week (Gilda from office will call you with an appointment time and date. ) Jai Ferreira DO [Doctor of Osteopathic Medicine] - 02/16/24 1:00 pm [facility], [NON-STAFF] - 1-2 Days Jai Carrillo MD [Primary Care Provider] - 01/20/24 1:00 pm (Lyla gauthier ) Patient Instructions/Handouts: Heart Attack (DC), After Radial Heart Catheterization (GEN) Activity/Diet/Wound Care/Special Instructions: heart healthy diet activity is restricted till you see your doctor Discharge Disposition: HOME WITH HOME HEALTH SERVICES
== END 2024-01-14 16:46 | disposition home health service (06) | DRG 322 ==
LOC: EC 03:42 → 3SCARD 05:45
PROVIDERS: ADMIT Hospitalist; ATTEND Hospitalist
PROC: 4A023N7 Measurement of Cardiac Sampling and Pressure, Left Heart, Percutaneous Approach (ICD-10-PCS; 2024-01-09)
PROC: B2111ZZ Fluoroscopy of Multiple Coronary Arteries using Low Osmolar Contrast (ICD-10-PCS; 2024-01-09)
PROC: 027135Z Dilation of Coronary Artery, Two Arteries with Two Drug-eluting Intraluminal Devices, Percutaneous Approach (ICD-10-PCS; principal; 2024-01-13)
PROC: B240ZZ3 Ultrasonography of Single Coronary Artery, Intravascular (ICD-10-PCS; 2024-01-13)
DX: I21.4 Non-ST elevation (NSTEMI) myocardial infarction (principal); I69.354 Hemiplegia and hemiparesis following cerebral infarction affecting left non-dominant side; N39.0 Urinary tract infection, site not specified; Z16.24 Resistance to multiple antibiotics; E11.22 Type 2 diabetes mellitus with diabetic chronic kidney disease; N18.30 Chronic kidney disease, stage 3 unspecified; E11.65 Type 2 diabetes mellitus with hyperglycemia; J43.9 Emphysema, unspecified; Z79.4 Long term (current) use of insulin; I48.0 Paroxysmal atrial fibrillation; I25.82 Chronic total occlusion of coronary artery; K76.0 Fatty (change of) liver, not elsewhere classified; I12.9 Hypertensive chronic kidney disease with stage 1 through stage 4 chronic kidney disease, or unspecified chronic kidney disease; E66.9 Obesity, unspecified; B96.20 Unspecified Escherichia coli [E. coli] as the cause of diseases classified elsewhere; I25.10 Atherosclerotic heart disease of native coronary artery without angina pectoris; Z68.31 Body mass index [BMI] 31.0-31.9, adult; I08.1 Rheumatic disorders of both mitral and tricuspid valves; Z79.51 Long term (current) use of inhaled steroids; Z87.891 Personal history of nicotine dependence; Z82.49 Family history of ischemic heart disease and other diseases of the circulatory system; E78.5 Hyperlipidemia, unspecified; I65.23 Occlusion and stenosis of bilateral carotid arteries; R91.1 Solitary pulmonary nodule; Z79.82 Long term (current) use of aspirin; Z86.711 Personal history of pulmonary embolism; F41.9 Anxiety disorder, unspecified; H35.30 Unspecified macular degeneration; F43.10 Post-traumatic stress disorder, unspecified; Z86.16 Personal history of COVID-19; Z87.440 Personal history of urinary (tract) infections; Z79.899 Other long term (current) drug therapy; Z91.040 Latex allergy status; Z88.2 Allergy status to sulfonamides; Z98.2 Presence of cerebrospinal fluid drainage device
CPT/HCPCS: 36415; 71045; 71046; 71250; 76705; 80048; 80053; 80061; 80074; 81001; 82105; 83036; 83690; 83721; 83735; 84443; 84484; 85025; 85027; 85610; 85730; 87070; 87077; 87086; 87186; 92978; 93005; 93306; 93458; 93880; 93922; 93970; 94150; 94640; 94760; 96361; 96374; 96375; 99291

== ENCOUNTER 2024-03-19 14:44 | Inpatient (IN) | payer MEDICARE ==
[2024-03-19 15:29] LABS: Basophils # (A) 0.1 k/uL (0-0.2); Basophils % (A) 1 %; Eosinophils # (A) 0.2 k/uL (0-0.7); Eosinophils % (A) 3 %; HCT 40.4 % (34.0-46.0); HGB 13.3 gm/dL (11.4-16.0); Lymphocytes # (A) 1.4 k/uL (1.0-4.8); Lymphocytes % (A) 21 %; MCH 31.5 pg (25.0-35.0); MCHC 32.9 g/dL (31.0-37.0); Mean Platelet Volume 7.6; Monocytes # (A) 0.4 k/uL (0-1.0); Monocytes % (A) 6 %; Neutrophils # (A) 4.6 k/uL (1.3-7.7); Neutrophils % (A) 68 %; Platelet Count 287 k/uL (150-450); RBC 4.22 m/uL (3.80-5.40); RDW 13.9 % (11.5-15.5); WBC 6.8 k/uL (3.8-10.6)
[2024-03-19 15:36] LABS: MCV 95.7 fL (80.0-100.0)
[2024-03-19 15:42] LABS: INR 0.9 (<1.2); Partial Thromboplastin Time 30.4 sec (22.0-30.0); Prothrombin Time 10.4 sec (10.0-12.5)
[2024-03-19 15:43] LABS: ALT 12 U/L (4-34); AST 20 U/L (14-36); African American GFR (CKD) 27 (>60 ml/min/1.73 sqM); Albumin 4.4 g/dL (3.5-5.0); Alkaline Phosphatase 95 U/L (38-126); Anion Gap 14 mmol/L; Blood Urea Nitrogen 39 mg/dL (7-17); Calcium 9.7 mg/dL (8.4-10.2); Carbon Dioxide 18 mmol/L (22-30); Chloride 111 mmol/L (98-107); Glucose 77 mg/dL (74-99); Magnesium 1.3 mg/dL (1.6-2.3); Non-African American GFR(CKD) 23 (>60 ml/min/1.73 sqM); Potassium 4.1 mmol/L (3.5-5.1); Sodium 143 mmol/L (137-145); Total Bilirubin 0.8 mg/dL (0.2-1.3); Total Protein 7.7 g/dL (6.3-8.2)
--- NOTE | 2024-03-19 16:46 | ED ---
Chest Pain HPI - General Chief Complaint: Chest Pain Stated Complaint: SUSHIL,Chest pain Time Seen by Provider: 03/19/24 16:00 Source: patient Mode of arrival: ambulatory Limitations: no limitations - History of Present Illness Initial Comments: 73-year-old female who presents emergency department reporting chest pain. Patient has history of A-fib, COPD, hypertension, pulmonary embolism. Patient was seen in January for chest pain and had an NSTEMI. Catheterization was performed with stent placement. Patient has had constant pain since she was started on several medications in January. She reports that she stopped taking her cholesterol pills and it seemed to get better. This morning she had intense chest pain. She went into her primary care office. They told her that she was having a heart attack and sent her to the hospital. Patient states that her pain is 4 out of 10 at this point. She admits to nausea. She did take 3 baby aspirin's today. No fevers, chills or cough. No other alleviating, precipitating or modifying factors - Related Data Home Medications Medication Instructions Recorded Confirmed Albuterol Inhaler [Ventolin Hfa 2 puff INHALATION RT-Q4H PRN 03/12/21 03/19/24 Inhaler] Fluticasone Propion/Salmeterol 1 puff INHALATION RT-BID 01/09/24 03/19/24 [Wixela 250-50 Inhub] Previous Rx's Medication Instructions Recorded Aspirin 81 mg PO DAILY 30 Days #30 tab 01/14/24 Atorvastatin [Lipitor] 40 mg PO DAILY #30 tab 01/14/24 Clopidogrel [Plavix] 75 mg PO DAILY #30 tab 01/14/24 Ezetimibe [Zetia] 10 mg PO DAILY #30 tab 01/14/24 Insulin Aspart [NovoLOG Flexpen] 6 units SQ AC-TID #0 03/28/24 Isosorbide Mononitrate ER [Imdur] 15 mg PO DAILY #15 tab 03/28/24 Magnesium Oxide [Mag-Ox] 400 mg PO BID #30 tab 03/28/24 Psyllium Husk 100% [Metamucil 6 gm PO DAILY packet 03/28/24 Packet] Ranolazine [Ranexa] 1,000 mg PO Q12HR #60 tab 03/28/24 Sodium Bicarbonate Tab 650 mg PO DAILY #30 tab 09/15/24 carvediloL [Coreg] 6.25 mg PO BID-W/MEALS #60 tab 03/28/24 Allergies Allergy/AdvReac Type Severity Reaction Status Date / Time latex Allergy Rash/Hives Verified 03/19/24 18:06 Sulfa (Sulfonamide Allergy Rash/Hives Verified 03/19/24 18:06 Antibiotics) Review of Systems ROS Statement: Those systems with pertinent positive or pertinent negative responses have been documented in the HPI. ROS Other: All systems not noted in ROS Statement are negative. Past Medical History Past Medical History: Atrial Fibrillation, Asthma, COPD, CVA/TIA, Diabetes Melli tus, Eye Disorder, Hyperlipidemia, Hypertension, Pulmonary Embolus (PE), Renal Disease Additional Past Medical History / Comment(s): vaginal dysplasia ,carotid artery blockage, kidney stones, stage 3 kidney disease, macular degeneration,. pt states had covid 2019 History of Any Multi-Drug Resistant Organisms: None Reported Past Surgical History: Appendectomy, Cholecystectomy, Tonsillectomy, Tubal Ligation Additional Past Surgical History / Comment(s): lithotripsy, elmer cataract surgery, eyelid issues, uterine laser ablation with 3 months interferon, hemorrhoidectomy, 2 C-sections, oophorectomy, carotid sx x3 Past Anesthesia/Blood Transfusion Reactions: Previous Problems w/ Anesthesia Additional Past Anesthesia/Blood Transfusion Reaction / Comment(s): takes longer time to wake up after anesthesia. request not to be yelled at to wake up Past Psychological History: Anxiety, PTSD Smoking Status: Former smoker Past Alcohol Use History: None Reported Past Drug Use History: None Reported - Past Family History Sister(s) Family Medical History: Cancer Additional Family Medical History / Comment(s): lung spread to brain Mother Family Medical History: Congestive Heart Failure (CHF), Diabetes Mellitus Father History Unknown: Yes Family Medical History: Myocardial Infarction ([place]) General Exam Limitations: no limitations General appearance: alert, in no apparent distress Head exam: Present: atraumatic, normocephalic, normal inspection Eye exam: Present: normal appearance, PERRL, EOMI. Absent: scleral icterus, conjunctival injection, periorbital swelling ENT exam: Present: normal exam, mucous membranes moist Neck exam: Present: normal inspection. Absent: tenderness, meningismus, lymphadenopathy Respiratory exam: Present: normal lung sounds bilaterally. Absent: respiratory distress, wheezes, rales, rhonchi, stridor Cardiovascular Exam: Present: regular rate, normal rhythm, normal heart sounds. Absent: systolic murmur, diastolic murmur, rubs, gallop, clicks GI/Abdominal exam: Present: soft, normal bowel sounds. Absent: distended, tenderness, guarding, rebound, rigid Extremities exam: Present: normal inspection, full ROM, normal capillary refill. Absent: tenderness, pedal edema, joint swelling, calf tenderness Back exam: Present: normal inspection Neurological exam: Present: alert, oriented X3, CN II-XII intact Psychiatric exam: Present: normal affect, normal mood Skin exam: Present: warm, dry, intact, normal color. Absent: rash Course Vital Signs 03/19/24 03/19/24 03/19/24 14:59 15:02 17:02 Temperature 97.8 F Pulse Rate 88 82 75 Pulse Rate [ Pulse Oximetery ] Respiratory 18 17 17 Rate Blood Pressure 98/64 95/56 119/73 Blood Pressure [Right Arm Supine] O2 Sat by Pulse 99 96 93 L Oximetry 03/19/24 03/19/24 03/20/24 19:32 23:00 00:00 Temperature Pulse Rate 74 70 67 Pulse Rate [ Pulse Oximetery ] Respiratory 20 22 20 Rate Blood Pressure 110/66 121/66 111/67 Blood Pressure [Right Arm Supine] O2 Sat by Pulse 92 L 94 L 92 L Oximetry 03/20/24 03/20/24 03/20/24 03:30 08:00 09:00 Temperature 98.7 F Pulse Rate 67 Pulse Rate [ 65 Pulse Oximetery ] Respiratory 20 20 Rate Blood Pressure 118/48 Blood Pressure 105/65 [Right Arm Supine] O2 Sat by Pulse 91 L 97 97 Oximetry 03/20/24 03/20/24 09:20 11:04 Temperature Pulse Rate 68 69 Pulse Rate [ Pulse Oximetery ] Respiratory 24 20 Rate Blood Pressure 124/80 167/72 Blood Pressure [Right Arm Supine] O2 Sat by Pulse 98 94 L Oximetry Chest Pain MDM - MDM Was pt. sent in by a medical professional or institution (, PA, MUSEUM INFORMATICS SPECIALIST, urgent care, hospital, or custodial...) When possible be specific @ -No Did you speak to anyone other than the patient for history (EMS, parent, family, police, friend...)? What history was obtained from this source @ -No Did you review nursing and triage notes (agree or disagree)? Why? @ -I reviewed and agree with nursing and triage notes Were old charts reviewed (outside hosp., previous admission, EMS record, old EKG, old radiological studies, urgent care reports/EKG's, custodial records)? Report findings @ -I reviewed previous discharge summary Differential Diagnosis (chest pain, altered mental status, abdominal pain women, abdominal pain men, vaginal bleeding, weakness, fever, dyspnea, syncope, headache, dizziness, GI bleed, back pain, seizure, CVA, palpatations, mental health, musculoskeletal)? @ -Differential Chest Pain: Stable Angina, Unstable Angina, STEMI, NSTEMI Aortic Dissection, Pneumothorax, Musculoskeletal, Esophageal Spasm GERD, Cholecystitis, Pancreatitis, Zoster, this is not meant to be an all-inclusive list. EKG interpreted by me (3pts min.). @ -Yes, completed at 1508 and demonstrates sinus rhythm with a rate of 85. MN interval 176. QRS 91. QTc of 392. Q wave in lead III. No acute ST segment elevation Fede done at 1554 demonstrates sinus rhythm with a rate of 76. MN interval 182. QRS 101. QTc of 423. No acute ST segment elevations or depressions X-rays interpreted by me (1pt min.). @ -Yes and demonstrates pulmonary vascular congestion CT interpreted by me (1pt min.). @ -None done U/S interpreted by me (1pt. min.). @ -None done What testing was considered but not performed or refused? (CT, X-rays, U/S, labs)? Why? @ -None What meds were considered but not given or refused? Why? @ -None Did you discuss the management of the patient with other professionals (professionals i.e. , PA, MUSEUM INFORMATICS SPECIALIST, lab, RT, psych nurse, social services counselor, electric melt operator, teacher, electronic intelligence officer, shoe parts caser)? Give summary @ -Discussed the case with Dr. Juarez Was smoking cessation discussed for >3mins.? @ -No Was critical care preformed (if so, how long)? @ -Yes, 35 minutes for heparinization Were there social determinants of health that impacted care today? How? (Homelessness, low income, unemployed, alcoholism, drug addiction, transportation, low edu. Level, literacy, decrease access to med. care, detention, rehab)? @ -No Was there de-escalation of care discussed even if they declined (Discuss DNR or withdrawal of care, Hospice)? DNR status @ -No What co-morbidities impacted this encounter? (DM, HTN, Smoking, COPD, CAD, Cancer, CVA, ARF, Chemo, Hep., AIDS, mental health diagnosis, sleep apnea, morbid obesity)? @ -NSTEMI Was patient admitted / discharged? Hospital course, mention meds given and route, prescriptions, significant lab abnormalities, going to OR and other pertinent info. @ -Upon arrival patient seen and evaluated in room 17. Thorough history and physical exam was performed. IV was established. Laboratory studies are conducted. Chest x-ray was performed. Patient has a twelve-lead EKG completed. I discussed results with the patient. Recommended admission for cardiology consultation. Spoke with Dr. Juarez for the admission Undiagnosed new problem with uncertain prognosis? @ -No Drug Therapy requiring intensive monitoring for toxicity (Heparin, Nitro, Insulin, Cardizem)? @ -Heparin Were any procedures done? @ -No Diagnosis/symptom? @ -Acute chest pain, NSTEMI Acute, or Chronic, or Acute on Chronic? @ -Acute Uncomplicated (without systemic symptoms) or Complicated (systemic symptoms)? @ -Complicated Side effects of treatment? @ -No Exacerbation, Progression, or Severe Exacerbation? @ -No Poses a threat to life or bodily function? How? (Chest pain, [place], [place], pneumonia, PE, COPD, DKA, ARF, appy, cholecystitis, CVA, Diverticulitis, Homicidal, Suicidal, threat to staff... and all critical care pts) @ -No Disposition Clinical Impression: Chest pain, Acute non-ST elevation myocardial infarction (NSTEMI) Disposition: ADMITTED IP TO THIS HOSP Is patient prescribed a controlled substance at d/c from ED?: No Time of Disposition: 17:46 Decision to Admit Reason: Admit from EC Decision Date: 03/19/24 Decision Time: 17:46
--- NOTE | 2024-03-19 17:25 | XR ---
EXAMINATION TYPE: XR chest 2V DATE OF EXAM: 03/19/2024 5:20 PM CLINICAL INDICATION: Female, 73 years old with history of Chest Pain; [facility] COMPARISON: Chest radiographs from 01/13/2024 TECHNIQUE: XR chest 2V Frontal view of the chest. FINDINGS: Lungs/Pleura: There is no evidence of pleural effusion, focal consolidation, or pneumothorax. Pulmonary vascularity: Pulmonary vascular congestion. Heart/mediastinum: Cardiomediastinal silhouette is enlarged. Musculoskeletal: No acute osseous pathology. Other findings: None Lines/Tubes: IMPRESSION: Cardiomegaly and mild pulmonary vascular congestion. Correlate with BNP for congestive heart failure.
[2024-03-19] MEDS: ONDANSETRON 4 MG/2 ML VIAL IM STA (17:42)
[2024-03-19] MEDS: ONDANSETRON 4 MG/2 ML VIAL IVP STA (17:43)
[2024-03-19] MEDS ORDERED: HEPARIN SODIUM 1,000 UN/ML (10ML VL) IV PRN (17:46)
[2024-03-19] MEDS ORDERED: NALOXONE 0.4 MG/ML 1 ML VIAL IV PRN (17:50)
[2024-03-19] MEDS: MAGNESIUM SULFATE-D5W PMX 1 GM in DEXTROSE/WATER 1 100ML.BAG IVPB SCH (18:49)
[2024-03-19] MEDS: MORPHINE SULFATE 4 MG/ML SYRINGE IV PRN (18:50)
[2024-03-19] MEDS: ASPIRIN 81 MG PO STA (18:50)
[2024-03-19] MEDS: HEPARIN SOD,PORK IN 0.45% NACL 25,000 UNIT in 0.45% NACL 1 250ML.BAG IV SCH (18:56)
[2024-03-19] MEDS: HEPARIN SODIUM 1,000 UN/ML (10ML VL) IV ONE (19:00)
[2024-03-20 08:21] LABS: Basophils # (A) 0.1 k/uL (0-0.2); Basophils % (A) 1 %; Eosinophils # (A) 0.3 k/uL (0-0.7); Eosinophils % (A) 5 %; HCT 39.3 % (34.0-46.0); HGB 12.5 gm/dL (11.4-16.0); Hypochromasia Moderate; Lymphocytes # (A) 2.1 k/uL (1.0-4.8); Lymphocytes % (A) 33 %; MCH 31.5 pg (25.0-35.0); MCHC 31.8 g/dL (31.0-37.0); MCV 98.9 fL (80.0-100.0); Mean Platelet Volume 7.5; Monocytes # (A) 0.5 k/uL (0-1.0); Monocytes % (A) 8 %; Neutrophils # (A) 3.4 k/uL (1.3-7.7); Neutrophils % (A) 52 %; Platelet Count 255 k/uL (150-450); RBC 3.97 m/uL (3.80-5.40); WBC 6.5 k/uL (3.8-10.6)
[2024-03-20 08:33] LABS: Partial Thromboplastin Time 58.2 sec (22.0-30.0); Prothrombin Time 10.6 sec (10.0-12.5)
[2024-03-20 08:51] LABS: African American GFR (CKD) 27 (>60 ml/min/1.73 sqM); Anion Gap 14 mmol/L; Blood Urea Nitrogen 42 mg/dL (7-17); Carbon Dioxide 17 mmol/L (22-30); Chloride 111 mmol/L (98-107); Glucose 112 mg/dL (74-99); Non-African American GFR(CKD) 23 (>60 ml/min/1.73 sqM); Potassium 4.6 mmol/L (3.5-5.1); Sodium 142 mmol/L (137-145)
[2024-03-20] MEDS: carvediloL 3.125 MG TAB PO SCH (08:57)
[2024-03-20] MEDS: FUROSEMIDE 10 MG/ML 4 ML VIAL IV STA (08:57)
[2024-03-20] MEDS: ISOSORBIDE MONONITRATE ER 15 MG TAB PO SCH (08:57)
[2024-03-20] MEDS ORDERED: DEXTROSE 50% SYRINGE 50 ML IVP PRN ×2 (09:07)
[2024-03-20] MEDS: ASPIRIN 81 MG PO SCH (09:25)
[2024-03-20] MEDS: CLOPIDOGREL 75 MG TAB PO SCH (09:25)
--- NOTE | 2024-03-20 11:20 | P.CRDCN ---
History of Present Illness Consult date: 03/20/24 History of present illness: HISTORY OF PRESENTING ILLNESS 73-year-old female with past medical history of multivessel CAD, COPD, peripheral arterial disease, relation present to the hospital because of increased worsening substernal chest pressure and increased shortness of breath. In January patient had a presentation for NSTEMI for which she had a heart catheterization done which showed multivessel CAD. She was evaluated by CT surgery team who denied CABG because of high surgical risk from her advanced COPD, CKD and prior multiple TIAs and CVAs. On admission ECG shows normal sinus rhythm with no new ST or T wave changes. She does have Q waves in inferior leads which are old Labs shows hemoglobin 13.3, WBC 6.8, sodium 143, potassium 4.1, creatinine 2.04, BUN 39, baseline creatinine around 1.6 Hypomagnesemia Troponin was elevated at 0.152, 0.157, 0.138, NT-proBNP 1930 Chest x-ray shows mild increase interstitial markings suggestive of pulmonary congestion REVIEW OF SYSTEMS 14 point review of system is negative except what is mentioned above in HPI. PHYSICAL EXAMINATION Vital signs reviewed. Head: Normocephalic. Eyes: Sclerae nonicteric. Neck: Brisk carotid upstroke, no jugular venous distention. Lungs: Clear to auscultation. No significant wheezing or rhonchi appreciated Heart: Regular rate and rhythm, S1-S2, no murmur or rub. Abdomen: Soft nontender, positive bowel sounds. Extremities: No edema, intact distal pulses. feable tibial pulses in bilateral Neuro: Alert, oritented, no focal deficits. Detailed neuro exam was not performed. 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 Add Jardiance 10 mg daily. Consider adding Ranexa in next 1 to 2 days monitor renal function. Monitor blood pressure, if blood pressure is high, consider increasing Coreg and Imdur Continue IV heparin drip for 48 hours Consider staged LCx PCI for CUPROUS CHLORIDE OPERATOR due to recurrent anginal symptoms. Wilner Kate MD, FACC, RPVI Thank you for allowing [facility] to participate in this patient's care. Feel free to reach out in case of any followup questions. Past Medical History Past Medical History: Atrial Fibrillation, Asthma, COPD, CVA/TIA, Diabetes Mellitus, Eye Disorder, Hyperlipidemia, Hypertension, Pulmonary Embolus (PE), Renal Disease Additional Past Medical History / Comment(s): vaginal dysplasia ,carotid artery blockage, kidney stones, stage 3 kidney disease, macular degeneration,. pt states had covid 2019 History of Any Multi-Drug Resistant Organisms: None Reported Past Surgical History: Appendectomy, Cholecystectomy, Tonsillectomy, Tubal Ligation Additional Past Surgical History / Comment(s): lithotripsy, elmer cataract surgery, eyelid issues, uterine laser ablation with 3 months interferon, hemorrhoidectomy, 2 C-sections, oophorectomy, carotid sx x3 Past Anesthesia/Blood Transfusion Reactions: Previous Problems w/ Anesthesia Additional Past Anesthesia/Blood Transfusion Reaction / Comment(s): takes longer time to wake up after anesthesia. request not to be yelled at to wake up Past Psychological History: Anxiety, PTSD Smoking Status: Former smoker Past Alcohol Use History: None Reported Past Drug Use History: None Reported - Past Family History Sister(s) Family Medical History: Cancer Additional Family Medical History / Comment(s): lung spread to brain Mother Family Medical History: Congestive Heart Failure (CHF), Diabetes Mellitus Father History Unknown: Yes Family Medical History: Myocardial Infarction (MT) Medications and Allergies Home Medications Medication Instructions Recorded Confirmed Type Albuterol Inhaler [Ventolin Hfa 2 puff INHALATION RT-Q4H PRN 03/12/21 03/19/24 History Inhaler] Fluticasone Propion/Salmeterol 1 puff INHALATION RT-BID 01/09/24 03/19/24 History [Wixela 250-50 Inhub] Insulin Aspart [NovoLOG Flexpen] 14 units SQ AC-TID 01/09/24 03/19/24 History Aspirin 81 mg PO DAILY 30 Days #30 tab 01/14/24 03/19/24 Rx Atorvastatin [Lipitor] 40 mg PO DAILY #30 tab 01/14/24 03/19/24 Rx Clopidogrel [Plavix] 75 mg PO DAILY #30 tab 01/14/24 03/19/24 Rx Docusate [Colace] 100 mg PO DAILY PRN 5 Days #10 cap 01/14/24 03/19/24 Rx Ezetimibe [Zetia] 10 mg PO DAILY #30 tab 01/14/24 03/19/24 Rx Isosorbide Mononitrate ER [Imdur] 30 mg PO DAILY #30 tab 01/14/24 03/19/24 Rx amLODIPine [Norvasc] 2.5 mg PO DAILY #30 tab 01/14/24 03/19/24 Rx carvediloL [Coreg*] 12.5 mg PO BID-W/MEALS #60 tab 01/14/24 03/19/24 Rx Allergies Allergy/AdvReac Type Severity Reaction Status Date / Time latex Allergy Rash/Hives Verified 03/19/24 18:06 Sulfa (Sulfonamide Allergy Rash/Hives Verified 03/19/24 18:06 Antibiotics) Physical Exam Vitals: Vital Signs Temp Pulse Pulse Resp BP BP Pulse Ox 03/20/24 11:04 69 20 167/72 94 L 03/20/24 09:20 68 24 124/80 98 03/20/24 09:00 67 20 118/48 97 03/20/24 08:00 97 03/20/24 03:30 98.7 F 65 20 105/65 91 L 03/20/24 00:00 67 20 111/67 92 L 03/19/24 23:00 70 22 121/66 94 L 03/19/24 19:32 74 20 110/66 92 L 03/19/24 17:02 75 17 119/73 93 L 03/19/24 15:02 82 17 95/56 96 03/19/24 14:59 97.8 F 88 18 98/64 99 Intake and Output 03/19/24 03/20/24 03/20/24 22:59 06:59 14:59 Intake Total 46.303 Balance 46.303 Intake: Intake, IV Titration 46.303 Amount Heparin Sod,Pork in 0.45% 46.303 NaCl 25,000 unit In 0.45 % NaCl 1 250ml.bag @ 12 UNITS/KG/HR 8.709 mls/hr IV .Q24H [facility] Rx#: [id number] Other: Voiding Method Toilet Weight 72.575 kg Results 03/20/24 07:34 03/20/24 07:34 Cardiac Enzymes 03/19/24 03/19/24 03/19/24 Range/Units 15:08 15:08 18:03 AST 20 (14-36) U/L Troponin I 0.152 H* 0.157 H* (0.000-0.034) ng/mL 03/19/24 Range/Units 20:39 AST (14-36) U/L Troponin I 0.138 H* (0.000-0.034) ng/mL Coagulation 03/19/24 03/19/24 03/20/24 Range/Units 15:08 23:48 07:34 PT 10.4 10.6 (10.0-12.5) sec APTT 30.4 H 61.0 H 58.2 H (22.0-30.0) sec CBC 03/19/24 03/20/24 Range/Units 15:08 07:34 WBC 6.8 6.5 (3.8-10.6) k/uL RBC 4.22 3.97 (3.80-5.40) m/uL Hgb 13.3 12.5 (11.4-16.0) gm/dL Hct 40.4 39.3 (34.0-46.0) % Plt Count 287 255 (150-450) k/uL Comprehensive Metabolic Panel 03/19/24 03/20/24 Range/Units 15:08 07:34 Sodium 143 142 (137-145) mmol/L Potassium 4.1 4.6 (3.5-5.1) mmol/L Chloride 111 H 111 H (98-107) mmol/L Carbon Dioxide 18 L 17 L (22-30) mmol/L BUN 39 H 42 H (7-17) mg/dL Creatinine 2.04 H 2.03 H (0.52-1.04) mg/dL Glucose 77 112 H (74-99) mg/dL Calcium 9.7 9.0 (8.4-10.2) mg/dL AST 20 (14-36) U/L ALT 12 (4-34) U/L Alkaline Phosphatase 95 (38-126) U/L Total Protein 7.7 (6.3-8.2) g/dL Albumin 4.4 (3.5-5.0) g/dL Current Medications Generic Name Dose Route Start Last Admin Trade Name Freq PRN Reason Stop Dose Admin Acetaminophen 650 mg 03/20/24 11:12 Acetaminophen Tab 325 Mg Tab PO Q6HR PRN Fever and/ or Pain Hydrocodone Bitart/Acetaminophen 1 each 03/20/24 11:12 Hydrocodone/Apap 5-325mg 1 Each Tab PO 03/22/24 11:11 Q8HR PRN Pain Albuterol Sulfate 2 puff 03/20/24 09:06 Albuterol Hfa Inhaler INHALATION RT-Q4H PRN Dyspnea Alprazolam 0.5 mg 03/20/24 11:12 Alprazolam 0.5 Mg Tab PO 03/24/24 11:11 BID PRN Anxiety Aspirin 81 mg 03/20/24 09:15 03/20/24 09:25 Aspirin 81 Mg PO 81 mg DAILY JOSEPH Administration Atorvastatin Calcium 40 mg 03/20/24 21:00 Atorvastatin 40 Mg Tab PO HS [facility] Budesonide/Formoterol Fumarate 2 puff 03/20/24 20:00 Symbicort 80-4.5 Mcg Inhaler INHALATION RT-BID JOSEPH Carvedilol 3.125 mg 03/20/24 08:00 03/20/24 08:57 Carvedilol 3.125 Mg Tab PO 3.125 mg BID-W/MEALS JOSEPH Administration Clopidogrel Bisulfate 75 mg 03/20/24 09:15 03/20/24 09:25 Clopidogrel 75 Mg Tab PO 75 mg DAILY JOSEPH Administration Dapagliflozin 10 mg 03/20/24 11:30 Dapagliflozin Propanediol 10 Mg Tablet PO DAILY JOSEPH Dextrose/Water 50 ml 03/20/24 09:07 Dextrose 50% Syringe 50 Ml IVP PER PROTOCOL PRN Hypoglycemia Protocol Dextrose/Water 25 ml 03/20/24 09:07 Dextrose 50% Syringe 50 Ml IVP PER PROTOCOL PRN Hypoglycemia Protocol Heparin Sodium (Porcine) 0 unit 03/19/24 17:46 Heparin Sodium 1,000 Un/Ml (10ml Vl) IV PER PROTOCOL PRN Low PTT Protocol Heparin Sodium/Sodium Chloride 250 mls @ 8.709 mls/hr 03/19/24 18:00 03/20/24 00:15 25,000 unit/ Sodium Chloride IV 12 units/kg/hr .Q24H JOSE[facility] 8.709 mls/hr Titration Protocol 12 UNITS/KG/HR Insulin Aspart 0 unit 03/20/24 12:30 Insulin Aspart (Novolog) 100 Unit/Ml Vial SQ ACHS [facility] Protocol Isosorbide Mononitrate 15 mg 03/20/24 09:00 03/20/24 08:57 Isosorbide Mononitrate Er 15 Mg Tab PO 15 mg DAILY [facility] Administration Lisinopril 2.5 mg 03/20/24 11:15 Lisinopril 2.5 Mg Tab PO DAILY [facility] Naloxone HCl 0.2 mg 03/19/24 17:50 Naloxone 0.4 Mg/Ml 1 Ml Vial IV Q2M PRN Opioid Reversal Ondansetron HCl 4 mg 03/19/24 17:50 Ondansetron 4 Mg/2 Ml Vial IVP Q8HR PRN Nausea And Vomiting Intake and Output 03/19/24 03/20/24 03/20/24 22:59 06:59 14:59 Intake Total 46.303 Balance 46.303 Intake: Intake, IV Titration 46.303 Amount Heparin Sod,Pork in 0.45% 46.303 NaCl 25,000 unit In 0.45 % NaCl 1 250ml.bag @ 12 UNITS/KG/HR 8.709 mls/hr IV .Q24H [facility] Rx#: [id number] Other: Voiding Method Toilet Weight 72.575 kg 03/20/24 07:34 03/20/24 07:34
[2024-03-20] MEDS: DAPAGLIFLOZIN PROPANEDIOL 10 MG TABLET PO SCH (11:31)
[2024-03-20 12:13] LABS: Glucose,Whole Blood 288 mg/dL (70-110)
[2024-03-20] MEDS: INSULIN ASPART (NovoLOG) 100 UNIT/ML VIAL SQ SCH (12:42)
[2024-03-20] MEDS: ALPRAZolam 0.5 MG TAB PO PRN (12:48)
--- NOTE | 2024-03-20 12:52 | P.NPCON ---
History of Present Illness - Reason for Consult acute renal failure - History of Present Illness Patient is a 73-year-old female with history of coronary artery disease, COPD who was admitted to the hospital with complaints of chest pain and shortness of breath. Serum creatinine was 2.0 on admission. It appears that patient has underlying chronic kidney disease stage IIIb with previous creatinine at 1.4 to 1.6 mg/dL in December and January 2024. Hypotension noted on initial admission with systolic blood pressure in the 90s. No history of use of NSAIDs. No PETER inhibitors or angiotensin receptor blockers noted. Started on low-dose lisinopril this admission. Patient states she has been voiding. Past Medical History Past Medical History: Atrial Fibrillation, Asthma, COPD, CVA/TIA, Diabetes Mellitus, Eye Disorder, Hyperlipidemia, Hypertension, Pulmonary Embolus (PE), Renal Disease Additional Past Medical History / Comment(s): vaginal dysplasia ,carotid artery blockage, kidney stones, stage 3 kidney disease, macular degeneration,. pt states had covid 2019 History of Any Multi-Drug Resistant Organisms: None Reported Past Surgical History: Appendectomy, Cholecystectomy, Tonsillectomy, Tubal Ligation Additional Past Surgical History / Comment(s): lithotripsy, elmer cataract surgery, eyelid issues, uterine laser ablation with 3 months interferon, hemorrhoidectomy, 2 C-sections, oophorectomy, carotid sx x3 Past Anesthesia/Blood Transfusion Reactions: Previous Problems w/ Anesthesia Additional Past Anesthesia/Blood Transfusion Reaction / Comment(s): takes longer time to wake up after anesthesia. request not to be yelled at to wake up Past Psychological History: Anxiety, PTSD Smoking Status: Former smoker Past Alcohol Use History: None Reported Past Drug Use History: None Reported - Past Family History Sister(s) Family Medical History: Cancer Additional Family Medical History / Comment(s): lung spread to brain Mother Family Medical History: Congestive Heart Failure (CHF), Diabetes Mellitus Father History Unknown: Yes Family Medical History: Myocardial Infarction (MS) Medications and Allergies Home Medications Medication Instructions Recorded Confirmed Type Albuterol Inhaler [Ventolin Hfa 2 puff INHALATION RT-Q4H PRN 03/12/21 03/19/24 History Inhaler] Fluticasone Propion/Salmeterol 1 puff INHALATION RT-BID 01/09/24 03/19/24 History [Wixela 250-50 Inhub] Insulin Aspart [NovoLOG Flexpen] 14 units SQ AC-TID 01/09/24 03/19/24 History Aspirin 81 mg PO DAILY 30 Days #30 tab 01/14/24 03/19/24 Rx Atorvastatin [Lipitor] 40 mg PO DAILY #30 tab 01/14/24 03/19/24 Rx Clopidogrel [Plavix] 75 mg PO DAILY #30 tab 01/14/24 03/19/24 Rx Docusate [Colace] 100 mg PO DAILY PRN 5 Days #10 cap 01/14/24 03/19/24 Rx Ezetimibe [Zetia] 10 mg PO DAILY #30 tab 01/14/24 03/19/24 Rx Isosorbide Mononitrate ER [Imdur] 30 mg PO DAILY #30 tab 01/14/24 03/19/24 Rx amLODIPine [Norvasc] 2.5 mg PO DAILY #30 tab 01/14/24 03/19/24 Rx carvediloL [Coreg*] 12.5 mg PO BID-W/MEALS #60 tab 01/14/24 03/19/24 Rx Allergies Allergy/AdvReac Type Severity Reaction Status Date / Time latex Allergy Rash/Hives Verified 03/19/24 18:06 Sulfa (Sulfonamide Allergy Rash/Hives Verified 03/19/24 18:06 Antibiotics) Physical Exam Vitals: Vital Signs Temp Pulse Pulse Resp BP BP Pulse Ox 03/20/24 11:04 69 20 167/72 94 L 03/20/24 09:20 68 24 124/80 98 03/20/24 09:00 67 20 118/48 97 03/20/24 08:00 97 03/20/24 03:30 98.7 F 65 20 105/65 91 L 03/20/24 00:00 67 20 111/67 92 L 03/19/24 23:00 70 22 121/66 94 L 03/19/24 19:32 74 20 110/66 92 L 03/19/24 17:02 75 17 119/73 93 L 03/19/24 15:02 82 17 95/56 96 03/19/24 14:59 97.8 F 88 18 98/64 99 Intake and Output 03/19/24 03/20/24 03/20/24 22:59 06:59 14:59 Intake Total 46.303 Balance 46.303 Intake: Intake, IV Titration 46.303 Amount Heparin Sod,Pork in 0.45% 46.303 NaCl 25,000 unit In 0.45 % NaCl 1 250ml.bag @ 12 UNITS/KG/HR 8.709 mls/hr IV .Q24H [facility] Rx#: [id number] Other: Voiding Method Toilet Weight 72.575 kg Patient is awake, comfortable Anxious No acute distress Examination of the heart S1 and S2 Examination of the lungs bilateral breath sounds are heard Abdomen is soft nontender Examination of lower extremities shows no significant edema [employer] exam shows patient is moving all 4 extremities. Results - Lab Results Most recent lab results Calcium 9.0 mg/dL (8.4-10.2) 03/20/24 07:34 Magnesium 1.3 mg/dL (1.6-2.3) L 03/19/24 15:08 03/20/24 07:34 03/20/24 07:34 Assessment and Plan Assessment: 1. Acute kidney injury secondary to hypotension, nonoliguric ATN. Previous UA on 01/14/2024 showed 1+ protein no blood. 2. Chronic kidney disease and Stage IIIb with baseline creatinine around 1.6- 1.4 mg/dL. 3. Non-ST elevation MS 4. Coronary artery disease with patient not being a candidate for CABG due to low FEV1 5. Advanced COPD 6. Hypertension with CKD stage IIIb Plan: May continue with low-dose PETER inhibitor's for now. Monitor renal function closely Check ultrasound of the kidneys May continue with Farxiga. Avoid hypotension. Thank you for the consultation. We will continue to follow the patient with you during her hospitalization.
--- NOTE | 2024-03-20 13:53 | US ---
EXAMINATION TYPE: US kidneys/renal and bladder DATE OF EXAM: 03/20/2024 COMPARISON: 03/23/2020 CLINICAL INDICATION: Female, 73 years old with history of jesica; EXAM MEASUREMENTS: Right Kidney: 10.6 x 5.3 x 4.7 cm Left Kidney: 10.9 x 5.3 x 4.8 cm Post Void Residual Volume: NA mL Right Kidney: Multiple echogenic areas throughout with minimal posterior shadowing with color artifac t - ? Stones vs calcifications. Left Kidney: Multiple echogenic areas throughout with minimal posterior shadowing with color artifact - ? Stones vs calcifications. Bladder: WNL Bilateral Jets seen: No Normal Post Void Residual: NA There is no evidence for hydronephrosis at this point in time. No masses are identified. The urinar y bladder is anechoic. IMPRESSION: 1. No hydronephrosis or solid renal mass. 2. As noted on prior study dated 03/23/2020, there are multiple nonshadowing parenchymal calcification s. 3. There are no no perinephric fluid collection. 4 unremarkable urinary bladder.
--- NOTE | 2024-03-20 13:54 | P.HPIM ---
History of Present Illness H&P Date: 03/20/24 History of present illness; patient is a 73-year-old lady with past medical history significant for hypertension, hyperlipidemia, diabetes mellitus type 2, carotid artery disease, chronic kidney disease, coronary disease who presented to the ER because of chest pain. Patient was seen in January of this year with similar complaints at which time patient had cardiac cath showing triple-vessel coronary artery disease patient was evaluated for CABG but later surgery decided that she should undergo PCI, patient underwent PCI to LAD in 01/12. Patient stated ever since her discharge she has been having on and off chest pain. Patient stated that she stopped taking her cholesterol medications for the last few weeks. Patient all right yesterday morning when she woke up with severe chest pain that was central location, nonradiating, no aggravating or relieving factors of the chest pain, denies any shortness of breath. Patient was complaining of nausea. There was no complaint palpitations. Because of the chest pain, patient went to her primary care doctor's office who told her to come to the ER. Initial lab work done in the ER showed WBC expanded, hemoglobin 13.3, platelet count 287, INR 0.9, sodium 143, potassium 4.1, BUN 39, creatinine 2.04 calcium 9.7, magnesium 1.3, troponin 0.152 EKG done in the ER showed heart rate of 76,, no ST segment elevation or depression seen, no T-wave inversions seen. Chest x-ray done in the ER showed cardiomegaly and mild pulmonary vascular congestion Patient admitted to internal medicine service REVIEW OF SYSTEMS: CONSTITUTIONAL: No fever, no malaise, no fatigue. HEENT: No recent visual problems or hearing problems. Denied any sore throat. CARDIOVASCULAR: As mentioned above PULMONARY: As mentioned GASTROINTESTINAL: No diarrhea, no nausea, no vomiting, no abdominal pain. NEUROLOGICAL: No headaches, no weakness, no numbness. HEMATOLOGICAL: Denies any bleeding or petechiae. GENITOURINARY: Denies any burning micturition, frequency, or urgency. MUSCULOSKELETAL/RHEUMATOLOGICAL: Denies any joint pain, swelling, or any muscle pain. ENDOCRINE: Denies any polyuria or polydipsia. The rest of the 14-point review of systems is negative. PHYSICAL EXAMINATION: GENERAL: The patient is alert and oriented x3, not in any acute distress. Ill looking HEENT: Pupils are round and equally reacting to light. EOMI. No scleral icterus. No conjunctival pallor. Normocephalic, atraumatic. No pharyngeal erythema. No thyromegaly. CARDIOVASCULAR: S1 and S2 present. No murmurs, rubs, or gallops. PULMONARY: Chest is clear to auscultation, no wheezing or crackles. ABDOMEN: Soft, nontender, nondistended, normoactive bowel sounds. No palpable organomegaly. MUSCULOSKELETAL: No joint swelling or deformity. EXTREMITIES: No cyanosis, clubbing, or pedal edema. NEUROLOGICAL: Gross neurological examination did not reveal any focal deficits. SKIN: No rashes. Assessment and plan NSTEMI Acute on chronic kidney injury Hypomagnesemia Metabolic acidosis CAD including 80% mid LAD, 99% proximal circumflex and 100% subtotally occluded RCA stenosis status post PCI to LAD in 7/ Chest pain, dyspnea with exertion consistent with angina Diabetes mellitus type 2 Hypertension Hyperlipidemia Carotid artery disease Family history of CAD Remote tobacco abuse Asthma Monitor vital signs Monitor CBC Monitor CMP Continue telemetry monitoring Trend troponins. Ordered 2D echo Ordered ultrasound of kidneys Avoid nephrotoxic agents Ordered sliding scale insulin Ordered pharmacy dose heparin Ordered breathing treatment Consulted cardiology Consult nephrology Labs and medication were reviewed.. Continue same treatment. Continue with symptomatic treatment. Resume home medication. Monitor labs and vitals. DVT and GI prophylaxis. Further recommendations as per clinical course of the patient Dictation was produced using [employer] dictation software. please excuse any grammatical, word or spelling errors. Past Medical History Past Medical History: Atrial Fibrillation, Asthma, COPD, CVA/TIA, Diabetes Mellitus, Eye Disorder, Hyperlipidemia, Hypertension, Pulmonary Embolus (PE), Renal Disease Additional Past Medical History / Comment(s): vaginal dysplasia ,carotid artery blockage, kidney stones, stage 3 kidney disease, macular degeneration,. pt states had covid 2019 History of Any Multi-Drug Resistant Organisms: None Reported Past Surgical History: Appendectomy, Cholecystectomy, Tonsillectomy, Tubal Ligation Additional Past Surgical History / Comment(s): lithotripsy, elmer cataract surgery, eyelid issues, uterine laser ablation with 3 months interferon, hemorrhoidectomy, 2 C-sections, oophorectomy, carotid sx x3 Past Anesthesia/Blood Transfusion Reactions: Previous Problems w/ Anesthesia Additional Past Anesthesia/Blood Transfusion Reaction / Comment(s): takes longer time to wake up after anesthesia. request not to be yelled at to wake up Past Psychological History: Anxiety, PTSD Smoking Status: Former smoker Past Alcohol Use History: None Reported Past Drug Use History: None Reported - Past Family History Sister(s) Family Medical History: Cancer Additional Family Medical History / Comment(s): lung spread to brain Mother Family Medical History: Congestive Heart Failure (CHF), Diabetes Mellitus Father History Unknown: Yes Family Medical History: Myocardial Infarction ([place]) Medications and Allergies Home Medications Medication Instructions Recorded Confirmed Type Albuterol Inhaler [Ventolin Hfa 2 puff INHALATION RT-Q4H PRN 03/12/21 03/19/24 History Inhaler] Fluticasone Propion/Salmeterol 1 puff INHALATION RT-BID 01/09/24 03/19/24 History [Wixela 250-50 Inhub] Insulin Aspart [NovoLOG Flexpen] 14 units SQ AC-TID 01/09/24 03/19/24 History Aspirin 81 mg PO DAILY 30 Days #30 tab 01/14/24 03/19/24 Rx Atorvastatin [Lipitor] 40 mg PO DAILY #30 tab 01/14/24 03/19/24 Rx Clopidogrel [Plavix] 75 mg PO DAILY #30 tab 01/14/24 03/19/24 Rx Docusate [Colace] 100 mg PO DAILY PRN 5 Days #10 cap 01/14/24 03/19/24 Rx Ezetimibe [Zetia] 10 mg PO DAILY #30 tab 01/14/24 03/19/24 Rx Isosorbide Mononitrate ER [Imdur] 30 mg PO DAILY #30 tab 01/14/24 03/19/24 Rx amLODIPine [Norvasc] 2.5 mg PO DAILY #30 tab 01/14/24 03/19/24 Rx carvediloL [Coreg*] 12.5 mg PO BID-W/MEALS #60 tab 01/14/24 03/19/24 Rx Allergies Allergy/AdvReac Type Severity Reaction Status Date / Time latex Allergy Rash/Hives Verified 03/19/24 18:06 Sulfa (Sulfonamide Allergy Rash/Hives Verified 03/19/24 18:06 Antibiotics) Physical Exam Vitals: Vital Signs Temp Pulse Pulse Resp BP BP Pulse Ox 03/20/24 08:00 97 03/20/24 03:30 98.7 F 65 20 105/65 91 L 03/20/24 00:00 67 20 111/67 92 L 03/19/24 23:00 70 22 121/66 94 L 03/19/24 19:32 74 20 110/66 92 L 03/19/24 17:02 75 17 119/73 93 L 03/19/24 15:02 82 17 95/56 96 03/19/24 14:59 97.8 F 88 18 98/64 99 Intake and Output 03/19/24 03/20/24 03/20/24 22:59 06:59 14:59 Intake Total 46.303 Balance 46.303 Intake: Intake, IV Titration 46.303 Amount Heparin Sod,Pork in 0.45% 46.303 NaCl 25,000 unit In 0.45 % NaCl 1 250ml.bag @ 12 UNITS/KG/HR 8.709 mls/hr IV .Q24H [facility] Rx#: [id number] Other: Voiding Method Toilet Weight 72.575 kg Results CBC & Chem 7: 03/20/24 07:34 03/20/24 07:34 Labs: Abnormal Lab Results - Last 24 Hours (Table) 03/19/24 03/19/24 03/19/24 Range/Units 15:08 15:08 15:08 APTT 30.4 H (22.0-30.0) sec Chloride 111 H (98-107) mmol/L Carbon Dioxide 18 L (22-30) mmol/L BUN 39 H (7-17) mg/dL Creatinine 2.04 H (0.52-1.04) mg/dL Glucose (74-99) mg/dL Magnesium 1.3 L (1.6-2.3) mg/dL Troponin I 0.152 H* (0.000-0.034) ng/mL 03/19/24 03/19/24 03/19/24 Range/Units 18:03 20:39 23:48 APTT 61.0 H (22.0-30.0) sec Chloride (98-107) mmol/L Carbon Dioxide (22-30) mmol/L BUN (7-17) mg/dL Creatinine (0.52-1.04) mg/dL Glucose (74-99) mg/dL Magnesium (1.6-2.3) mg/dL Troponin I 0.157 H* 0.138 H* (0.000-0.034) ng/mL 03/20/24 03/20/24 Range/Units 07:34 07:34 APTT 58.2 H (22.0-30.0) sec Chloride 111 H (98-107) mmol/L Carbon Dioxide 17 L (22-30) mmol/L BUN 42 H (7-17) mg/dL Creatinine 2.03 H (0.52-1.04) mg/dL Glucose 112 H (74-99) mg/dL Magnesium (1.6-2.3) mg/dL Troponin I (0.000-0.034) ng/mL Thrombosis Risk Factor Assmnt - Choose All That Apply Any of the Below Risk Factors Present?: Yes Each Factor Represents 1 point: Abnormal pulmonary function (COPD), Medical pt on bed rest, Obesity (BMI >25), Serious lung disease incl. pneumonia (< 1month), Swollen legs (current), Varicose veins Each Risk Factor Represents 3 Points: Positive Factor V Leiden, History of DVT/PE Other congenital or acquired thrombophilia - If yes, enter type in comment: No Thrombosis Risk Factor Assessment Total Risk Factor Score: 12 Thrombosis Risk Factor Assessment Level: High Risk
--- NOTE | 2024-03-20 15:45 | CA ---
Transthoracic Echo Report Name: Mansi Carolina Age: 73 Gender: F : 1950 Exam Date: 03/20/2024 12:21 Exam Location: [facility] Ht (in): 65 Wt (lb): 160 Ordering Physician: Glenn Carroll MD Attending/Referring Phys: Nuclear Equipment Design Engineer Colette Loaiza RDCS Procedure CPT: Indications: Chest Pain Cardiac Hx: Technical Quality: Fair Contrast 1: Total Dose (mL): Contrast 2: Total Dose (mL): MEASUREMENTS (Male / Female) Normal Values 2D ECHO LV Diastolic Diameter PLAX 4.7 cm 4.2 - 5.9 / 3.9 - 5.3 cm LV Systolic Diameter PLAX 3.2 cm IVS Diastolic Thickness 1.0 cm 0.6 - 1.0 / 0.6 - 0.9 cm LVPW Diastolic Thickness 1.0 cm 0.6 - 1.0 / 0.6 - 0.9 cm LV Relative Wall Thickness 0.4 DOPPLER PV Peak Velocity 100.0 cm/s PV Peak Gradient 4.0 mmHg FINDINGS Left Ventricle Left ventricular ejection fraction is estimated at 55-60 %. Mild concentric LVH. No obvious regional wall motion abnormalities. Right Ventricle Normal right ventricular size and function. Right Atrium Right atrium not assessed. Left Atrium Left atrium not assessed. Mitral Valve Mitral valve thickened. Trace mitral regurgitation. Aortic Valve Aortic valve not well visualized. No aortic valve stenosis or regurgitation. Tricuspid Valve Structurally normal tricuspid valve. No tricuspid regurgitation. Pulmonic Valve Pulmonic valve not well visualized. No pulmonic stenosis. No pulmonic stenosis. Pericardium Trace anterior pericardial effusion. Fat pad. Aorta CONCLUSIONS Limited study to evaluate LVEF Left ventricular ejection fraction is estimated at 55-60 %. Mild concentric LVH mild concentric LVH No obvious regional wall motion abnormalities. Previewed by: Dr Wilner Kate (Electronically Signed) Final Date: 20 March 2024 15:44
[2024-03-20 15:58] LABS: Appearance,Urine Clear (Clear); Bacteria,Urine Few /hpf; Bilirubin,Urine Negative (Negative); Blood,Urine Negative (Negative); Color,Urine Colorless; Glucose,Urine (UA) 3+ (Negative); Ketones,Urine Negative (Negative); Leukocyte Esterase,Urine Moderate (Negative); Mucus,Urine Rare /hpf; Nitrite,Urine Negative (Negative); Protein,Urine Negative (Negative); RBC,Urine 1 /hpf (0-5); Specific Gravity,Urine 1.006 (1.001-1.035); Squamous Epithelial Cell,Urine <1 /hpf (0-4); Urobilinogen,Urine <2.0 mg/dL (<2.0); WBC,Urine 7 /hpf (0-5)
[2024-03-20 16:38] LABS: Glucose,Whole Blood 170 mg/dL (70-110)
[2024-03-20] MEDS: ALBUTEROL HFA INHALER INHALATION PRN (17:13)
[2024-03-20] MEDS: SYMBICORT 80-4.5 MCG INHALER INHALATION SCH (20:27)
[2024-03-20 20:43] LABS: Glucose,Whole Blood 196 mg/dL (70-110)
[2024-03-20] MEDS: ATORVASTATIN 40 MG TAB PO SCH (21:55)
[2024-03-21 06:13] LABS: Glucose,Whole Blood 206 mg/dL (70-110)
[2024-03-21 06:18] LABS: Basophils % (A) 1 %; Eosinophils # (A) 0.3 k/uL (0-0.7); Eosinophils % (A) 5 %; HCT 40.2 % (34.0-46.0); HGB 12.8 gm/dL (11.4-16.0); Hypochromasia Slight; Lymphocytes # (A) 1.8 k/uL (1.0-4.8); Lymphocytes % (A) 26 %; MCH 31.2 pg (25.0-35.0); MCHC 31.7 g/dL (31.0-37.0); MCV 98.2 fL (80.0-100.0); Mean Platelet Volume 7.6; Monocytes # (A) 0.4 k/uL (0-1.0); Monocytes % (A) 7 %; Neutrophils % (A) 60 %; Platelet Count 259 k/uL (150-450); RBC 4.09 m/uL (3.80-5.40); RDW 13.9 % (11.5-15.5); WBC 6.7 k/uL (3.8-10.6)
[2024-03-21 06:36] LABS: ALT 11 U/L (4-34); AST 21 U/L (14-36); African American GFR (CKD) 23 (>60 ml/min/1.73 sqM); Alkaline Phosphatase 94 U/L (38-126); Anion Gap 16 mmol/L; Blood Urea Nitrogen 52 mg/dL (7-17); Calcium 8.8 mg/dL (8.4-10.2); Carbon Dioxide 17 mmol/L (22-30); Chloride 107 mmol/L (98-107); Glucose 171 mg/dL (74-99); Non-African American GFR(CKD) 20 (>60 ml/min/1.73 sqM); Potassium 4.6 mmol/L (3.5-5.1); Sodium 140 mmol/L (137-145); Total Bilirubin 0.5 mg/dL (0.2-1.3); Total Protein 6.8 g/dL (6.3-8.2)
[2024-03-21 11:22] LABS: Glucose,Whole Blood 294 mg/dL (70-110)
--- NOTE | 2024-03-21 12:01 | P.PN ---
Subjective Patient is seen for follow-up for acute kidney injury and volume overload. She does have underlying chronic kidney disease stage IIIb with previous creatinine around 1.4 to 1.6 mg/dL in December and January 2024. Overall patient states she is feeling better. Serum creatinine increased slightly to 2.29 from 2.0 on initial admission. Patient has been started on low-dose lisinopril and Farxiga. Blood pressure was noted to be low with 1 documented reading of systolic of 90 mmHg. Objective - Vital Signs Vital signs: Vital Signs Temp 97.9 F 03/21/24 11:19 Pulse 77 03/21/24 11:19 Resp 16 03/21/24 11:19 BP 104/60 03/21/24 11:20 Pulse Ox 92 L 03/21/24 11:19 FiO2 Intake & Output 03/20/24 03/21/24 03/21/24 18:59 06:59 18:59 Intake Total 370.78 Output Total 200 Balance 170.78 Weight 73 kg Intake: Intake, IV Titration 130.78 Amount Heparin Sod,Pork in 0.45% 130.78 NaCl 25,000 unit In 0.45 % NaCl 1 250ml.bag @ 12 UNITS/KG/HR 8.709 mls/hr IV .Q24H [facility] Rx#: [id number] Oral 240 Output: Urine 200 Other: Voiding Method Toilet Toilet Toilet Bedside Commode Bedside Commode Bedside Commode # Voids 1 - Exam Patient is awake, comfortable No acute distress Examination of the heart S1 and S2 Examination of the lungs bilateral breath sounds are heard Abdomen is soft nontender Examination of lower extremities shows no significant edema PRODUCTION LINE TECHNICIAN exam shows patient is moving all 4 extremities. - Labs CBC & Chem 7: 03/21/24 05:33 03/21/24 05:33 Labs: Abnormal Lab Results - Last 24 Hours (Table) 03/20/24 03/20/24 03/20/24 Range/Units 12:11 15:19 16:37 APTT (22.0-30.0) sec Carbon Dioxide (22-30) mmol/L BUN (7-17) mg/dL Creatinine (0.52-1.04) mg/dL Glucose (74-99) mg/dL POC Glucose (mg/dL) 288 H 170 H (70-110) mg/dL Hemoglobin A1c (<=6.0) % Urine Glucose (UA) 3+ H (Negative) Ur Leukocyte Esterase Moderate H (Negative) Urine WBC 7 H (0-5) /hpf Urine Bacteria Few H (None) /hpf Urine Mucus Rare H (None) /hpf 03/20/24 03/21/24 03/21/24 Range/Units 20:23 05:33 05:33 APTT 44.7 H (22.0-30.0) sec Carbon Dioxide (22-30) mmol/L BUN (7-17) mg/dL Creatinine (0.52-1.04) mg/dL Glucose (74-99) mg/dL POC Glucose (mg/dL) 196 H (70-110) mg/dL Hemoglobin A1c 8.5 H (<=6.0) % Urine Glucose (UA) (Negative) Ur Leukocyte Esterase (Negative) Urine WBC (0-5) /hpf Urine Bacteria (None) /hpf Urine Mucus (None) /hpf 03/21/24 03/21/24 03/21/24 Range/Units 05:33 05:51 11:20 APTT (22.0-30.0) sec Carbon Dioxide 17 L (22-30) mmol/L BUN 52 H (7-17) mg/dL Creatinine 2.29 H (0.52-1.04) mg/dL Glucose 171 H (74-99) mg/dL POC Glucose (mg/dL) 206 H 294 H (70-110) mg/dL Hemoglobin A1c (<=6.0) % Urine Glucose (UA) (Negative) Ur Leukocyte Esterase (Negative) Urine WBC (0-5) /hpf Urine Bacteria (None) /hpf Urine Mucus (None) /hpf Assessment and Plan Assessment: 1. Acute kidney injury secondary to hypotension, nonoliguric ATN. UA shows no hematuria or proteinuria. Started on low-dose PETER inhibitors and Farxiga at this admission. Blood pressure has been on the lower side. Serum creatinine increased slightly. 2. Chronic kidney disease and Stage IIIb with baseline creatinine around 1.6- 1.4 mg/dL. 3. Non-ST elevation PR 4. Coronary artery disease with patient not being a candidate for CABG due to low FEV1 5. Advanced COPD 6. Hypertension with CKD stage IIIb Plan: May continue with low-dose PETER inhibitor's for now. Added parameters. Monitor renal function closely May continue with Farxiga. Avoid hypotension.
--- NOTE | 2024-03-21 12:57 | P.PN ---
Subjective Progress Note Date: 03/21/24 patient is a 73-year-old lady with past medical history significant for hypertension, hyperlipidemia, diabetes mellitus type 2, carotid artery disease, chronic kidney disease, coronary disease who presented to the ER because of chest pain. Patient was seen in January of this year with similar complaints at [facility] time patient had cardiac cath showing triple-vessel coronary artery disease patient was evaluated for CABG but later surgery decided that she should undergo PCI, patient underwent PCI to LAD in 01/12. Patient stated ever since her discharge she has been having on and off chest pain. Patient stated that she stopped taking her cholesterol medications for the last few weeks. Patient all right yesterday morning when she woke up with severe chest pain that was central location, nonradiating, no aggravating or relieving factors of the chest pain, denies any shortness of breath. Patient was complaining of nausea. There was no complaint palpitations. Because of the chest pain, patient went to her primary care doctor's office who told her to come to the ER. Initial lab work done in the ER showed WBC expanded, hemoglobin 13.3, platelet count 287, INR 0.9, sodium 143, potassium 4.1, BUN 39, creatinine 2.04 calcium 9.7, magnesium 1.3, troponin 0.152 EKG done in the ER showed heart rate of 76,, no ST segment elevation or depression seen, no T-wave inversions seen. Chest x-ray done in the ER showed cardiomegaly and mild pulmonary vascular congestion Patient admitted to internal medicine service 03/21. Patient seen and examined. Blood work this morning showed WBC 6.7, hemoglobin 8, platelet count 259, sodium 140, potassium 4.6, BUN 52, creatinine 2.29, glucose 171. Denies any chest pain. States she feels much better. REVIEW OF SYSTEMS: CONSTITUTIONAL: No fever, no malaise,. CARDIOVASCULAR: No chest pain, no palpitations, no syncope. PULMONARY: No shortness of breath, no cough, GASTROINTESTINAL: No diarrhea, no nausea, no vomiting, no abdominal pain. NEUROLOGICAL: No headaches, no weakness, PHYSICAL EXAMINATION: GENERAL: The patient is alert and oriented x3, not in any acute distress. Well developed, well nourished. HEENT: Pupils are round and equally reacting to light. EOMI. No scleral icterus. No conjunctival pallor. Normocephalic, atraumatic. No pharyngeal erythema. No thyromegaly. CARDIOVASCULAR: S1 and S2 present. No murmurs, rubs, or gallops. PULMONARY: Chest is clear to auscultation, no wheezing or crackles. ABDOMEN: Soft, nontender, nondistended, normoactive bowel sounds. No palpable organomegaly. MUSCULOSKELETAL: No joint swelling or deformity. EXTREMITIES: No cyanosis, clubbing, or pedal edema. NEUROLOGICAL: Gross neurological examination did not reveal any focal deficits. SKIN: No rashes. Assessment and plan NSTEMI Acute on chronic kidney injury Hypomagnesemia Metabolic acidosis CAD including 80% mid LAD, 99% proximal circumflex and 100% subtotally occluded RCA stenosis status post PCI to LAD in 01/12 Chest pain, dyspnea with exertion consistent with angina Diabetes mellitus type 2 Hypertension Hyperlipidemia Carotid artery disease Family history of CAD Remote tobacco abuse Asthma Monitor vital signs Monitor CBC Monitor CMP Continue telemetry monitoring Encourage use of incentive spirometer Continue pharmacy dose heparin Continue aspirin, Plavix, Lipitor, Continue Imdur and lisinopril Cardiology following, added Jardiance and recommend keeping IV heparin for 48 hours, recommend staged left circumflex PCI for 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 Continue same treatment. Continue with symptomatic treatment. Resume home medication. Monitor labs and vitals. DVT and GI prophylaxis. Further recommendations as per clinical course of the patient Dictation was produced using [employer] dictation software. please excuse any grammatical, word or spelling errors. Objective - Vital Signs Vital signs: Vital Signs Temp 97.7 F 03/21/24 07:56 Pulse 70 03/21/24 07:56 Resp 18 03/21/24 07:56 BP 95/52 03/21/24 07:56 Pulse Ox 92 L 03/21/24 07:56 FiO2 Intake & Output 03/20/24 03/21/24 03/21/24 18:59 06:59 18:59 Intake Total 370.78 Output Total 200 Balance 170.78 Weight 73 kg Intake: Intake, IV Titration 130.78 Amount Heparin Sod,Pork in 0.45% 130.78 NaCl 25,000 unit In 0.45 % NaCl 1 250ml.bag @ 12 UNITS/KG/HR 8.709 mls/hr IV .Q24H [facility] Rx#: [id number] Oral 240 Output: Urine 200 Other: Voiding Method Toilet Toilet Toilet Bedside Commode Bedside Commode Bedside Commode # Voids 1 - Labs CBC & Chem 7: 03/21/24 05:33 03/21/24 05:33 Labs: Abnormal Lab Results - Last 24 Hours (Table) 03/20/24 03/20/24 03/20/24 Range/Units 07:34 12:11 15:19 APTT (22.0-30.0) sec Chloride 111 H (98-107) mmol/L Carbon Dioxide 17 L (22-30) mmol/L BUN 42 H (7-17) mg/dL Creatinine 2.03 H (0.52-1.04) mg/dL Glucose 112 H (74-99) mg/dL POC Glucose (mg/dL) 288 H (70-110) mg/dL Urine Glucose (UA) 3+ H (Negative) Ur Leukocyte Esterase Moderate H (Negative) Urine WBC 7 H (0-5) /hpf Urine Bacteria Few H (None) /hpf Urine Mucus Rare H (None) /hpf 03/20/24 03/20/24 03/21/24 Range/Units 16:37 20:23 05:33 APTT 44.7 H (22.0-30.0) sec Chloride (98-107) mmol/L Carbon Dioxide (22-30) mmol/L BUN (7-17) mg/dL Creatinine (0.52-1.04) mg/dL Glucose (74-99) mg/dL POC Glucose (mg/dL) 170 H 196 H (70-110) mg/dL Urine Glucose (UA) (Negative) Ur Leukocyte Esterase (Negative) Urine WBC (0-5) /hpf Urine Bacteria (None) /hpf Urine Mucus (None) /hpf 03/21/24 03/21/24 Range/Units 05:33 05:51 APTT (22.0-30.0) sec Chloride (98-107) mmol/L Carbon Dioxide 17 L (22-30) mmol/L BUN 52 H (7-17) mg/dL Creatinine 2.29 H (0.52-1.04) mg/dL Glucose 171 H (74-99) mg/dL POC Glucose (mg/dL) 206 H (70-110) mg/dL Urine Glucose (UA) (Negative) Ur Leukocyte Esterase (Negative) Urine WBC (0-5) /hpf Urine Bacteria (None) /hpf Urine Mucus (None) /hpf
[2024-03-21] MEDS: RANOLAZINE 500 MG TAB.ER.12H PO SCH (15:40)
[2024-03-21 16:19] LABS: Glucose,Whole Blood 272 mg/dL (70-110)
--- NOTE | 2024-03-21 18:40 | P.CRDCN ---
History of Present Illness Consult date: 03/21/24 History of present illness: HISTORY OF PRESENTING ILLNESS 73-year-old female with past medical history of multivessel CAD, COPD, peripheral arterial disease, relation present to the hospital because of increased worsening substernal chest pressure and increased shortness of breath. In January patient had a presentation for NSTEMI for which she had a heart catheterization done which showed multivessel CAD. She was evaluated by CT surgery team who denied CABG because of high surgical risk from her advanced COPD, CKD and prior multiple TIAs and CVAs. On admission ECG shows normal sinus rhythm with no new ST or T wave changes. She does have Q waves in inferior leads which are old Labs shows hemoglobin 13.3, WBC 6.8, sodium 143, potassium 4.1, creatinine 2.04, BUN 39, baseline creatinine around 1.6 Hypomagnesemia Troponin was elevated at 0.152, 0.157, 0.138, NT-proBNP 193 Chest x-ray shows mild increase interstitial markings suggestive of pulmonary congestion March 21, 2024 Patient reports that her chest pain is better as compared to yesterday. She still appears very anxious. Her shortness of breath is mainly very improved since admission. BP 104/60, heart rate 83, sinus rhythm on telemetry, hemoglobin 12.8, BUN 52, creatinine 2.29 yesterday creatinine was 2.03. PHYSICAL EXAMINATION Vital signs reviewed. Head: Normocephalic. Eyes: Sclerae nonicteric. Neck: Brisk carotid upstroke, no jugular venous distention. Lungs: Clear to auscultation. No significant wheezing or rhonchi appreciated Heart: Regular rate and rhythm, S1-S2, no murmur or rub. Abdomen: Soft nontender, positive bowel sounds. Extremities: No edema, intact distal pulses. feable tibial pulses in bilateral Neuro: Alert, oritented, no focal deficits. Detailed neuro exam was not performed. 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 Add Jardiance 10 mg daily. Add Ranexa 500 m twice daily monitor renal function. Monitor blood pressure, if blood pressure is high, consider increasing Coreg and Imdur Continue IV heparin drip for 48 hours Consider staged LCx PCI for SEWER PIPE LAYER HELPER due to recurrent anginal symptoms. Patient kidney function under remains low, once kidney function improves, contact Dr. Hahn to see if patient would be a good candidate for LCx SEWER PIPE LAYER HELPER PCI. Past Medical History Past Medical History: Atrial Fibrillation, Asthma, COPD, CVA/TIA, Diabetes Mellitus, Eye Disorder, Hyperlipidemia, Hypertension, Pulmonary Embolus (PE), Renal Disease Additional Past Medical History / Comment(s): vaginal dysplasia ,carotid artery blockage, kidney stones, stage 3 kidney disease, macular degeneration,. pt states had covid 2019 History of Any Multi-Drug Resistant Organisms: None Reported Past Surgical History: Appendectomy, Cholecystectomy, Tonsillectomy, Tubal Ligation Additional Past Surgical History / Comment(s): lithotripsy, elmer cataract surgery, eyelid issues, uterine laser ablation with 3 months interferon, hemorrhoidectomy, 2 C-sections, oophorectomy, carotid sx x3 Past Anesthesia/Blood Transfusion Reactions: Previous Problems w/ Anesthesia Additional Past Anesthesia/Blood Transfusion Reaction / Comment(s): takes longer time to wake up after anesthesia. request not to be yelled at to wake up Past Psychological History: Anxiety, PTSD Smoking Status: Former smoker Past Alcohol Use History: None Reported Past Drug Use History: None Reported - Past Family History Sister(s) Family Medical History: Cancer Additional Family Medical History / Comment(s): lung spread to brain Mother Family Medical History: Congestive Heart Failure (CHF), Diabetes Mellitus Father History Unknown: Yes Family Medical History: Myocardial Infarction (CT) Medications and Allergies Home Medications Medication Instructions Recorded Confirmed Type Albuterol Inhaler [Ventolin Hfa 2 puff INHALATION RT-Q4H PRN 03/12/21 03/19/24 History Inhaler] Fluticasone Propion/Salmeterol 1 puff INHALATION RT-BID 01/09/24 03/19/24 History [Wixela 250-50 Inhub] Insulin Aspart [NovoLOG Flexpen] 14 units SQ AC-TID 01/09/24 03/19/24 History Aspirin 81 mg PO DAILY 30 Days #30 tab 01/14/24 03/19/24 Rx Atorvastatin [Lipitor] 40 mg PO DAILY #30 tab 01/14/24 03/19/24 Rx Clopidogrel [Plavix] 75 mg PO DAILY #30 tab 01/14/24 03/19/24 Rx Docusate [Colace] 100 mg PO DAILY PRN 5 Days #10 cap 01/14/24 03/19/24 Rx Ezetimibe [Zetia] 10 mg PO DAILY #30 tab 01/14/24 03/19/24 Rx Isosorbide Mononitrate ER [Imdur] 30 mg PO DAILY #30 tab 01/14/24 03/19/24 Rx amLODIPine [Norvasc] 2.5 mg PO DAILY #30 tab 01/14/24 03/19/24 Rx carvediloL [Coreg*] 12.5 mg PO BID-W/MEALS #60 tab 01/14/24 03/19/24 Rx Allergies Allergy/AdvReac Type Severity Reaction Status Date / Time latex Allergy Rash/Hives Verified 03/19/24 18:06 Sulfa (Sulfonamide Allergy Rash/Hives Verified 03/19/24 18:06 Antibiotics) Physical Exam Vitals: Vital Signs Temp Pulse Resp BP Pulse Ox 03/21/24 15:46 97.8 F 83 22 127/78 94 L 03/21/24 11:20 104/60 03/21/24 11:19 97.9 F 77 16 85/46 92 L 03/21/24 07:56 97.7 F 70 18 95/52 92 L 03/21/24 04:35 78 20 111/69 95 03/21/24 00:35 61 20 96/61 91 L 03/20/24 20:45 97.8 F 73 22 95/49 98 Intake and Output 03/21/24 03/21/24 03/21/24 06:59 14:59 22:59 Intake Total 120 212.354 Output Total 400 Balance 120 -187.646 Intake: Intake, IV Titration 212.354 Amount Heparin Sod,Pork in 0.45% 212.354 NaCl 25,000 unit In 0.45 % NaCl 1 250ml.bag @ 12 UNITS/KG/HR 8.709 mls/hr IV .Q24H [facility] Rx#: [id number] Oral 120 Output: Urine 400 Other: Voiding Method Toilet Toilet Toilet Bedside Commode Bedside Commode Bedside Commode # Voids 1 Weight 73 kg Results 03/21/24 05:33 03/21/24 05:33 Cardiac Enzymes 03/21/24 Range/Units 05:33 AST 21 (14-36) U/L Coagulation 03/21/24 Range/Units 05:33 APTT 44.7 H (22.0-30.0) sec CBC 03/21/24 Range/Units 05:33 WBC 6.7 (3.8-10.6) k/uL RBC 4.09 (3.80-5.40) m/uL Hgb 12.8 (11.4-16.0) gm/dL Hct 40.2 (34.0-46.0) % Plt Count 259 (150-450) k/uL Comprehensive Metabolic Panel 03/21/24 Range/Units 05:33 Sodium 140 (137-145) mmol/L Potassium 4.6 (3.5-5.1) mmol/L Chloride 107 (98-107) mmol/L Carbon Dioxide 17 L (22-30) mmol/L BUN 52 H (7-17) mg/dL Creatinine 2.29 H (0.52-1.04) mg/dL Glucose 171 H (74-99) mg/dL Calcium 8.8 (8.4-10.2) mg/dL AST 21 (14-36) U/L ALT 11 (4-34) U/L Alkaline Phosphatase 94 (38-126) U/L Total Protein 6.8 (6.3-8.2) g/dL Albumin 4.0 (3.5-5.0) g/dL Current Medications Generic Name Dose Route Start Last Admin Trade Name Freq PRN Reason Stop Dose Admin Acetaminophen 650 mg 03/20/24 11:12 Acetaminophen Tab 325 Mg Tab PO Q6HR PRN Fever and/ or Pain Hydrocodone Bitart/Acetaminophen 1 each 03/20/24 11:12 Hydrocodone/Apap 5-325mg 1 Each Tab PO 03/22/24 11:11 Q8HR PRN Pain Albuterol Sulfate 2 puff 03/20/24 09:06 03/21/24 15:21 Albuterol Hfa Inhaler INHALATION 2 puff RT-Q4H PRN Administration Dyspnea Alprazolam 0.5 mg 03/20/24 11:12 03/21/24 01:24 Alprazolam 0.5 Mg Tab PO 03/24/24 11:11 0.5 mg BID PRN Administration Anxiety Aspirin 81 mg 03/20/24 09:15 03/21/24 08:00 Aspirin 81 Mg PO 81 mg DAILY JOSEPH Administration Atorvastatin Calcium 40 mg 03/20/24 21:00 03/20/24 21:55 Atorvastatin 40 Mg Tab PO 40 mg HS JOSEPH Administration Budesonide/Formoterol Fumarate 2 puff 03/20/24 20:00 03/21/24 07:58 Symbicort 80-4.5 Mcg Inhaler INHALATION 2 puff RT-BID JOSEPH Administration Carvedilol 3.125 mg 03/20/24 08:00 03/21/24 16:13 Carvedilol 3.125 Mg Tab PO 3.125 mg BID-W/MEALS JOSEPH Administration Clopidogrel Bisulfate 75 mg 03/20/24 09:15 03/21/24 08:00 Clopidogrel 75 Mg Tab PO 75 mg DAILY JOSEPH Administration Dapagliflozin 10 mg 03/20/24 11:30 03/21/24 08:00 Dapagliflozin Propanediol 10 Mg Tablet PO 10 mg DAILY JOSEPH Administration Dextrose/Water 50 ml 03/20/24 09:07 Dextrose 50% Syringe 50 Ml IVP PER PROTOCOL PRN Hypoglycemia Protocol Dextrose/Water 25 ml 03/20/24 09:07 Dextrose 50% Syringe 50 Ml IVP PER PROTOCOL PRN Hypoglycemia Protocol Heparin Sodium (Porcine) 0 unit 03/19/24 17:46 Heparin Sodium 1,000 Un/Ml (10ml Vl) IV PER PROTOCOL PRN Low PTT Protocol Heparin Sodium/Sodium Chloride 250 mls @ 8.709 mls/hr 03/19/24 18:00 03/21/24 15:39 25,000 unit/ Sodium Chloride IV 12 units/kg/hr .Q24H JOSEPH 8.709 mls/hr Administration Protocol 12 UNITS/KG/HR Insulin Aspart 0 unit 03/20/24 12:30 03/21/24 16:10 Insulin Aspart (Novolog) 100 Unit/Ml Vial SQ 3 unit ACHS JOSEPH Administration Protocol Isosorbide Mononitrate 15 mg 03/20/24 09:00 03/21/24 08:00 Isosorbide Mononitrate Er 15 Mg Tab PO 15 mg DAILY JOSEPH Administration Lisinopril 2.5 mg 03/20/24 11:15 03/21/24 15:42 Lisinopril 2.5 Mg Tab PO 2.5 mg DAILY JOSEPH Administration Naloxone HCl 0.2 mg 03/19/24 17:50 Naloxone 0.4 Mg/Ml 1 Ml Vial IV Q2M PRN Opioid Reversal Ondansetron HCl 4 mg 03/19/24 17:50 Ondansetron 4 Mg/2 Ml Vial IVP Q8HR PRN Nausea And Vomiting Ranolazine 500 mg 03/21/24 14:15 03/21/24 15:40 Ranolazine 500 Mg Tab.Er.12h PO 500 mg Q12HR JOSEPH Administration Trazodone HCl 25 mg 03/21/24 11:15 Trazodone Hcl 50 Mg Tab PO HS PRN Insomnia Intake and Output 03/21/24 03/21/24 03/21/24 06:59 14:59 22:59 Intake Total 120 212.354 Output Total 400 Balance 120 -187.646 Intake: Intake, IV Titration 212.354 Amount Heparin Sod,Pork in 0.45% 212.354 NaCl 25,000 unit In 0.45 % NaCl 1 250ml.bag @ 12 UNITS/KG/HR 8.709 mls/hr IV .Q24H [facility] Rx#: [id number] Oral 120 Output: Urine 400 Other: Voiding Method Toilet Toilet Toilet Bedside Commode Bedside Commode Bedside Commode # Voids 1 Weight 73 kg 03/21/24 05:33 03/21/24 05:33
[2024-03-21 20:10] LABS: Glucose,Whole Blood 260 mg/dL (70-110)
[2024-03-21] MEDS: traZODone HCL 50 MG TAB PO PRN (23:41)
[2024-03-22] MEDS: HYDROcodone/APAP 5-325MG 1 EACH TAB PO PRN (03:39)
[2024-03-22 06:04] LABS: Glucose,Whole Blood 262 mg/dL (70-110)
[2024-03-22 07:06] LABS: Basophils % (A) 1 %; Eosinophils # (A) 0.3 k/uL (0-0.7); Eosinophils % (A) 4 %; HCT 39.3 % (34.0-46.0); HGB 12.9 gm/dL (11.4-16.0); Lymphocytes # (A) 1.5 k/uL (1.0-4.8); Lymphocytes % (A) 24 %; MCH 32.3 pg (25.0-35.0); MCHC 32.9 g/dL (31.0-37.0); MCV 98.4 fL (80.0-100.0); Mean Platelet Volume 8.5; Monocytes # (A) 0.5 k/uL (0-1.0); Monocytes % (A) 8 %; Neutrophils # (A) 3.8 k/uL (1.3-7.7); Neutrophils % (A) 61 %; Platelet Count 232 k/uL (150-450); RBC 3.99 m/uL (3.80-5.40); RDW 14.2 % (11.5-15.5); WBC 6.3 k/uL (3.8-10.6)
[2024-03-22 07:37] LABS: ALT 10 U/L (4-34); AST 20 U/L (14-36); African American GFR (CKD) 24 (>60 ml/min/1.73 sqM); Albumin 3.8 g/dL (3.5-5.0); Alkaline Phosphatase 93 U/L (38-126); Anion Gap 14 mmol/L; Blood Urea Nitrogen 55 mg/dL (7-17); Calcium 8.9 mg/dL (8.4-10.2); Carbon Dioxide 16 mmol/L (22-30); Chloride 110 mmol/L (98-107); Glucose 243 mg/dL (74-99); Non-African American GFR(CKD) 21 (>60 ml/min/1.73 sqM); Sodium 140 mmol/L (137-145); Total Bilirubin 0.5 mg/dL (0.2-1.3); Total Protein 6.9 g/dL (6.3-8.2)
[2024-03-22] MEDS: ISOSORBIDE MONONITRATE ER 30 MG TAB.ER.24H PO SCH (08:24)
[2024-03-22] MEDS: RANOLAZINE 500 MG TAB.ER.12H PO SCH (08:24)
--- NOTE | 2024-03-22 09:26 | P.PN ---
Subjective Patient is seen in follow-up for acute kidney injury on chronic kidney disease. Renal function fairly stable. Denies chest pain or shortness of breath. On nasal cannula. Admits to good urine output. Vital signs are stable. General: No acute distress. HEENT: Head exam is unremarkable. On nasal cannula. LUNGS: No audible rhonchi or wheezes. HEART: Rate and Rhythm are regular. ABDOMEN: No distention. EXTREMITITES: No edema. Objective - Vital Signs Vital signs: Vital Signs Temp 97.6 F 03/21/24 20:40 Pulse 71 03/22/24 03:40 Resp 22 03/22/24 03:40 BP 122/70 03/22/24 03:40 Pulse Ox 92 L 03/22/24 03:40 FiO2 Intake & Output 03/21/24 03/22/24 03/22/24 18:59 06:59 18:59 Intake Total 332.354 Output Total 400 Balance -67.646 Weight 75.7 kg Intake: Intake, IV Titration 212.354 Amount Heparin Sod,Pork in 0.45% 212.354 NaCl 25,000 unit In 0.45 % NaCl 1 250ml.bag @ 12 UNITS/KG/HR 8.709 mls/hr IV .Q24H [facility] Rx#: [id number] Oral 120 Output: Urine 400 Other: Voiding Method Toilet Toilet Bedside Commode Bedside Commode # Voids 1 1 - Labs CBC & Chem 7: 03/22/24 06:03 03/22/24 06:03 Labs: Abnormal Lab Results - Last 24 Hours (Table) 03/21/24 03/21/24 03/21/24 Range/Units 05:33 11:20 16:09 APTT (22.0-30.0) sec Chloride (98-107) mmol/L Carbon Dioxide (22-30) mmol/L BUN (7-17) mg/dL Creatinine (0.52-1.04) mg/dL Glucose (74-99) mg/dL POC Glucose (mg/dL) 294 H 272 H (70-110) mg/dL Hemoglobin A1c 8.5 H (<=6.0) % 03/21/24 03/22/24 03/22/24 Range/Units 20:08 06:02 06:03 APTT (22.0-30.0) sec Chloride 110 H (98-107) mmol/L Carbon Dioxide 16 L (22-30) mmol/L BUN 55 H (7-17) mg/dL Creatinine 2.23 H (0.52-1.04) mg/dL Glucose 243 H (74-99) mg/dL POC Glucose (mg/dL) 260 H 262 H (70-110) mg/dL Hemoglobin A1c (<=6.0) % 03/22/24 Range/Units 06:03 APTT 46.2 H (22.0-30.0) sec Chloride (98-107) mmol/L Carbon Dioxide (22-30) mmol/L BUN (7-17) mg/dL Creatinine (0.52-1.04) mg/dL Glucose (74-99) mg/dL POC Glucose (mg/dL) (70-110) mg/dL Hemoglobin A1c (<=6.0) % Assessment and Plan Plan: Assessment: 1. Acute kidney injury secondary to hemodynamic ATN. No proteinuria or hematuria on UA. Creatinine stable at 2.23 today. No hydronephrosis noted on kidney ultrasound. 2. Chronic kidney disease stage IIIb with baseline creatinine 1.4-1.6 secondary to nephrosclerosis. 3. Coronary artery disease. Patient not a candidate for CABG. 4. Advanced COPD. 5. Hypertension with chronic kidney disease. Stable. 6. Metabolic acidosis secondary to acute kidney injury. 7. Diabetes mellitus. Plan: Maintain SGLT2 inhibitor. Add oral bicarb. Blood glucose control. Avoid nephrotoxins. Continue to monitor renal function and urine output.
[2024-03-22] MEDS: SODIUM BICARBONATE TAB 650 MG TAB PO SCH (09:40)
[2024-03-22 11:31] LABS: Glucose,Whole Blood 258 mg/dL (70-110)
[2024-03-22] MEDS: SODIUM BICARB 8.4% 50 ML SYR (1 MEQ/ML) IV STA (11:57)
[2024-03-22] MEDS ORDERED: SODIUM BICARB 8.4% 50 ML SYR (1 MEQ/ML) ONE (11:59)
--- NOTE | 2024-03-22 12:21 | P.PN ---
Subjective Progress Note Date: 03/22/24 HISTORY OF PRESENTING ILLNESS 73-year-old female with past medical history of multivessel CAD, COPD, perip heral arterial disease, relation present to the hospital because of increased worsening substernal chest pressure and increased shortness of breath. In January patient had a presentation for NSTEMI for which she had a heart catheterization done which showed multivessel CAD. She was evaluated by CT surgery team who denied CABG because of high surgical risk from her advanced COPD, CKD and prior multiple TIAs and CVAs. On admission ECG shows normal sinus rhythm with no new ST or T wave changes. Sh e does have Q waves in inferior leads which are old Labs shows hemoglobin 13.3, WBC 6.8, sodium 143, potassium 4.1, creatinine 2.04, BUN 39, baseline creatinine around 1.6 Hypomagnesemia Troponin was elevated at 0.152, 0.157, 0.138, NT-proBNP 1929 Chest x-ray shows mild increase interstitial markings suggestive of pulmonary congestion March 21, 2024 Patient reports that her chest pain is better as compared to yesterday. She still appears very anxious. Her shortness of breath is mainly very improved since admission. BP 104/60, heart rate 83, sinus rhythm on telemetry, hemoglobin 12.8, BUN 52, creatinine 2.29 yesterday creatinine was 2.03. 03/22 Patient states that she did wake up experiencing chest pain. Blood pressure 117/69, heart rate 74, pulse ox 95% on room air. CBC within normal limits. BUN 55 creatinine 2.23. Potassium 5.0. Nephrology is following for acute kidney injury. PHYSICAL EXAMINATION Vital signs reviewed. Head: Normocephalic. Eyes: Sclerae nonicteric. Neck: Brisk carotid upstroke, no jugular venous distention. Lungs: Clear to auscultation. No significant wheezing or rhonchi appreciated Heart: Regular rate and rhythm, S1-S2, no murmur or rub. Abdomen: Soft nontender, positive bowel sounds. Extremities: No edema, intact distal pulses bilateral Neuro: Alert, oritented, no focal deficits. Detailed neuro exam was not performed. 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 Monitor blood pressure Continue IV heparin drip Consider staged LCx PCI for ABNORMAL PSYCHOLOGY TEACHER due to recurrent anginal symptoms. Patient kidney function under remains low, once kidney function improves, contact Dr. Hahn to see if patient would be a good candidate for LCx ABNORMAL PSYCHOLOGY TEACHER PCI. Nurse practitioner note has been reviewed, I agree with documented findings and plan of care. Patient was seen and examined. Objective - Vital Signs Vital signs: Vital Signs Temp 97.6 F 03/21/24 20:40 Pulse 71 03/22/24 03:40 Resp 22 03/22/24 03:40 BP 122/70 03/22/24 03:40 Pulse Ox 92 L 03/22/24 03:40 FiO2 Intake & Output 03/21/24 03/22/24 03/22/24 18:59 06:59 18:59 Intake Total 332.354 Output Total 400 Balance -67.646 Weight 75.7 kg Intake: Intake, IV Titration 212.354 Amount Heparin Sod,Pork in 0.45% 212.354 NaCl 25,000 unit In 0.45 % NaCl 1 250ml.bag @ 12 UNITS/KG/HR 8.709 mls/hr IV .Q24H [facility] Rx#: [id number] Oral 120 Output: Urine 400 Other: Voiding Method Toilet Toilet Bedside Commode Bedside Commode # Voids 1 1 - Labs CBC & Chem 7: 03/22/24 06:03 03/22/24 06:03 Labs: Abnormal Lab Results - Last 24 Hours (Table) 03/21/24 03/21/24 03/21/24 Range/Units 05:33 11:20 16:09 APTT (22.0-30.0) sec Chloride (98-107) mmol/L Carbon Dioxide (22-30) mmol/L BUN (7-17) mg/dL Creatinine (0.52-1.04) mg/dL Glucose (74-99) mg/dL POC Glucose (mg/dL) 294 H 272 H (70-110) mg/dL Hemoglobin A1c 8.5 H (<=6.0) % 03/21/24 03/22/24 03/22/24 Range/Units 20:08 06:02 06:03 APTT (22.0-30.0) sec Chloride 110 H (98-107) mmol/L Carbon Dioxide 16 L (22-30) mmol/L BUN 55 H (7-17) mg/dL Creatinine 2.23 H (0.52-1.04) mg/dL Glucose 243 H (74-99) mg/dL POC Glucose (mg/dL) 260 H 262 H (70-110) mg/dL Hemoglobin A1c (<=6.0) % 03/22/24 Range/Units 06:03 APTT 46.2 H (22.0-30.0) sec Chloride (98-107) mmol/L Carbon Dioxide (22-30) mmol/L BUN (7-17) mg/dL Creatinine (0.52-1.04) mg/dL Glucose (74-99) mg/dL POC Glucose (mg/dL) (70-110) mg/dL Hemoglobin A1c (<=6.0) %
[2024-03-22 16:08] LABS: Glucose,Whole Blood 352 mg/dL (70-110)
[2024-03-22] MEDS: carvediloL 6.25 MG TAB PO SCH (16:13)
[2024-03-22 20:08] LABS: Glucose,Whole Blood 348 mg/dL (70-110)
[2024-03-22] MEDS: INSULIN ASPART (NovoLOG) 100 UNIT/ML VIAL SQ ONE (21:03)
--- NOTE | 2024-03-22 21:38 | P.PN ---
Subjective Progress Note Date: 03/22/24 patient is a 73-year-old lady with past medical history significant for hypertension, hyperlipidemia, diabetes mellitus type 2, carotid artery disease, chronic kidney disease, coronary disease who presented to the ER because of chest pain. Patient was seen in January of this year with similar complaints at [facility] time patient had cardiac cath showing triple-vessel coronary artery disease patient was evaluated for CABG but later surgery decided that she should undergo PCI, patient underwent PCI to LAD in 01/12. Patient stated ever since her discharge she has been having on and off chest pain. Patient stated that she stopped taking her cholesterol medications for the last few weeks. Patient all right yesterday morning when she woke up with severe chest pain that was central location, nonradiating, no aggravating or relieving factors of the chest pain, denies any shortness of breath. Patient was complaining of nausea. There was no complaint palpitations. Because of the chest pain, patient went to her primary care doctor's office who told her to come to the ER. Initial lab work done in the ER showed WBC expanded, hemoglobin 13.3, platelet count 287, INR 0.9, sodium 143, potassium 4.1, BUN 39, creatinine 2.04 calcium 9.7, magnesium 1.3, troponin 0.152 EKG done in the ER showed heart rate of 76,, no ST segment elevation or depression seen, no T-wave inversions seen. Chest x-ray done in the ER showed cardiomegaly and mild pulmonary vascular congestion Patient admitted to internal medicine service 03/21. Patient seen and examined. Blood work this morning showed WBC 6.7, hemoglobin 8, platelet count 259, sodium 140, potassium 4.6, BUN 52, creatinine 2.29, glucose 171. Denies any chest pain. States she feels much better. 03/22/2024 Patient is evaluated today in follow up. Patient currently denies chest pain. Remains on IV heparin. Continues on oxygen via nasal cannula 2L. Potassium 5.0, BUN 55, creatinine 2.23. Blood glucose in the 300s. REVIEW OF SYSTEMS: CONSTITUTIONAL: No fever, no malaise,. CARDIOVASCULAR: No chest pain, no palpitations, no syncope. PULMONARY: No shortness of breath, no cough, GASTROINTESTINAL: No diarrhea, no nausea, no vomiting, no abdominal pain. NEUROLOGICAL: No headaches, no weakness, PHYSICAL EXAMINATION: GENERAL: The patient is alert and oriented x3, not in any acute distress. Well developed, well nourished. HEENT: Pupils are round and equally reacting to light. EOMI. No scleral icterus. No conjunctival pallor. Normocephalic, atraumatic. No pharyngeal erythema. No thyromegaly. CARDIOVASCULAR: S1 and S2 present. No murmurs, rubs, or gallops. PULMONARY: Chest is clear to auscultation, no wheezing or crackles. ABDOMEN: Soft, nontender, nondistended, normoactive bowel sounds. No palpable organomegaly. MUSCULOSKELETAL: No joint swelling or deformity. EXTREMITIES: No cyanosis, clubbing, or pedal edema. NEUROLOGICAL: Gross neurological examination did not reveal any focal deficits. SKIN: No rashes. Assessment and plan NSTEMI Acute on chronic kidney injury Hypomagnesemia Metabolic acidosis CAD including 80% mid LAD, 99% proximal circumflex and 100% subtotally occluded RCA stenosis status post PCI to LAD in 7/ Chest pain, dyspnea with exertion consistent with angina Chronic oxygen dependent COPD. on 2L prn outpatient. Diabetes mellitus type 2 Hypertension Hyperlipidemia Carotid artery disease Family history of CAD Remote tobacco abuse Asthma Hx of PE GI prophylaxis DVT prophylaxis on IV heparin Full Code Plan Continue telemetry monitoring Encourage use of incentive spirometer Continue pharmacy dose heparin Continue aspirin, Plavix, Lipitor, Continue Imdur and lisinopril Additionally cardiology has increased carvedilol, imdur and ranexa Cardiology following, added Jardiance and recommend keeping IV heparin for 48 hours, recommend staged left circumflex PCI for BUNG DRIVER due to recurrent anginal symptoms Staged intervention pending improvement in renal function Nephrology following, cardiology following Repeat blood work in the AM The impression and plan of care has been dictated by Jennifer Love Nurse Practitioner as directed. Dr. Dequan MD I have performed a history and physical examination and medical decision making of this patient, discussed the same with the dictator, and agree with the dictators assessment and plan as written, documented as a scribe. Based on total visit time, I have performed more than 50% of this visit. Objective - Vital Signs Vital signs: Vital Signs Temp 97.4 F L 03/22/24 08:20 Pulse 67 03/22/24 12:00 Resp 19 03/22/24 12:00 BP 113/66 03/22/24 12:00 Pulse Ox 96 03/22/24 12:00 FiO2 Intake & Output 03/21/24 03/22/24 03/22/24 18:59 06:59 18:59 Intake Total 332.354 118 Output Total 400 Balance -67.646 118 Weight 75.7 kg Intake: Intake, IV Titration 212.354 Amount Heparin Sod,Pork in 0.45% 212.354 NaCl 25,000 unit In 0.45 % NaCl 1 250ml.bag @ 12 UNITS/KG/HR 8.709 mls/hr IV .Q24H [facility] Rx#: [id number] Oral 120 118 Output: Urine 400 Other: Voiding Method Toilet Toilet Toilet Bedside Commode Bedside Commode Bedside Commode # Voids 1 1 - Labs CBC & Chem 7: 03/22/24 06:03 03/22/24 06:03 Labs: Abnormal Lab Results - Last 24 Hours (Table) 03/21/24 03/21/24 03/22/24 Range/Units 16:09 20:08 06:02 APTT (22.0-30.0) sec Chloride (98-107) mmol/L Carbon Dioxide (22-30) mmol/L BUN (7-17) mg/dL Creatinine (0.52-1.04) mg/dL Glucose (74-99) mg/dL POC Glucose (mg/dL) 272 H 260 H 262 H (70-110) mg/dL 03/22/24 03/22/24 03/22/24 Range/Units 06:03 06:03 11:29 APTT 46.2 H (22.0-30.0) sec Chloride 110 H (98-107) mmol/L Carbon Dioxide 16 L (22-30) mmol/L BUN 55 H (7-17) mg/dL Creatinine 2.23 H (0.52-1.04) mg/dL Glucose 243 H (74-99) mg/dL POC Glucose (mg/dL) 258 H (70-110) mg/dL Assessment and Plan Time with Patient: Less than 30
[2024-03-22] MEDS: NITROGLYCERIN SL TABS 0.4 MG TAB SUBLINGUAL STA (23:40)
[2024-03-22 23:58] LABS: Glucose,Whole Blood 160 mg/dL (70-110)
[2024-03-22] MEDS: NITROGLYCERIN SL TABS 0.4 MG TAB SUBLINGUAL ONE (23:58)
[2024-03-23] MEDS: NITROGLYCERIN SL TABS 0.4 MG TAB SUBLINGUAL STA
[2024-03-23] MEDS: NITROGLYCERIN-D5W PMX 50 MG in DEXTROSE/WATER 1 250ML.BAG IV SCH (00:38)
[2024-03-23 05:43] LABS: Glucose,Whole Blood 206 mg/dL (70-110)
[2024-03-23] MEDS: INSULIN ASPART (NovoLOG) 100 UNIT/ML VIAL SQ SCH (06:15)
[2024-03-23] MEDS: HYDROcodone/APAP 5-325MG 1 EACH TAB PO PRN (06:43)
[2024-03-23 07:24] LABS: Glucose 211 mg/dL (74-99)
[2024-03-23 07:53] LABS: African American GFR (CKD) 24 (>60 ml/min/1.73 sqM); Anion Gap 15 mmol/L; Blood Urea Nitrogen 52 mg/dL (7-17); Carbon Dioxide 18 mmol/L (22-30); Chloride 109 mmol/L (98-107); Magnesium 1.5 mg/dL (1.6-2.3); Non-African American GFR(CKD) 21 (>60 ml/min/1.73 sqM); Potassium 4.8 mmol/L (3.5-5.1); Sodium 142 mmol/L (137-145)
--- NOTE | 2024-03-23 08:18 | XR ---
EXAMINATION TYPE: XR Hip Complete LT DATE OF EXAM: 03/23/2024 CLINICAL HISTORY: pain TECHNIQUE: AP and frogleg views of the left hip are obtained. COMPARISON: None. FINDINGS: There is no acute fracture/dislocation evident. The joint space appears narrowed. The o verlying soft tissue appears unremarkable. IMPRESSION: 1. There is no acute fracture or dislocation.ICD 10 NO FRACTURE, INITIAL EVALUATION
[2024-03-23] MEDS: carvediloL 6.25 MG TAB PO STA (09:00)
[2024-03-23] MEDS: amLODIPine 2.5 MG TAB PO SCH (09:00)
[2024-03-23] MEDS: ISOSORBIDE MONONITRATE ER 60 MG TAB.ER.24H PO SCH (09:00)
[2024-03-23] MEDS ORDERED: Magnesium Replacement Protocol 1 EACH MISC MISCELLANE PRN (09:04)
[2024-03-23] MEDS: MAGNESIUM SULFATE-D5W PMX 1 GM in DEXTROSE/WATER 1 100ML.BAG IVPB SCH (09:57)
[2024-03-23] MEDS: INSULIN DETEMIR (LEVEMIR) 100 UNIT/ML SYR SQ SCH (10:06)
--- NOTE | 2024-03-23 11:12 | P.PN ---
Subjective Patient is seen in follow-up for acute kidney injury on chronic kidney disease. Renal function fairly stable. Denies chest pain or shortness of breath. On nasal cannula. Admits to good urine output. Vital signs are stable. General: No acute distress. HEENT: Head exam is unremarkable. On nasal cannula. LUNGS: No audible rhonchi or wheezes. HEART: Rate and Rhythm are regular. ABDOMEN: No distention. EXTREMITITES: No edema. Objective - Vital Signs Vital signs: Vital Signs Temp 97.5 F L 03/23/24 08:00 Pulse 65 03/23/24 10:59 Resp 18 03/23/24 10:59 BP 105/59 03/23/24 10:59 Pulse Ox 92 L 03/23/24 10:59 FiO2 Intake & Output 03/22/24 03/23/24 03/23/24 18:59 06:59 18:59 Intake Total 1010.272 480 0 Output Total 400 300 Balance 610.272 180 0 Weight 75.5 kg Intake: Intake, IV Titration 234.272 Amount Heparin Sod,Pork in 0.45% 234.272 NaCl 25,000 unit In 0.45 % NaCl 1 250ml.bag @ 12 UNITS/KG/HR 8.709 mls/hr IV .Q24H [facility] Rx#: [id number] Oral 776 480 0 Output: Urine 400 300 Other: Voiding Method Toilet Bedside Commode Bedside Commode Bedside Commode # Voids 1 - Labs CBC & Chem 7: 03/22/24 06:03 03/23/24 06:03 Labs: Abnormal Lab Results - Last 24 Hours (Table) 03/22/24 03/22/24 03/22/24 Range/Units 11:29 16:06 20:06 APTT (22.0-30.0) sec Chloride (98-107) mmol/L Carbon Dioxide (22-30) mmol/L BUN (7-17) mg/dL Creatinine (0.52-1.04) mg/dL Glucose (74-99) mg/dL POC Glucose (mg/dL) 258 H 352 H 348 H (70-110) mg/dL Magnesium (1.6-2.3) mg/dL 03/22/24 03/23/24 03/23/24 Range/Units 23:57 05:41 06:03 APTT 44.2 H (22.0-30.0) sec Chloride (98-107) mmol/L Carbon Dioxide (22-30) mmol/L BUN (7-17) mg/dL Creatinine (0.52-1.04) mg/dL Glucose (74-99) mg/dL POC Glucose (mg/dL) 160 H 206 H (70-110) mg/dL Magnesium (1.6-2.3) mg/dL 03/23/24 Range/Units 06:03 APTT (22.0-30.0) sec Chloride 109 H (98-107) mmol/L Carbon Dioxide 18 L (22-30) mmol/L BUN 52 H (7-17) mg/dL Creatinine 2.24 H (0.52-1.04) mg/dL Glucose 211 H (74-99) mg/dL POC Glucose (mg/dL) (70-110) mg/dL Magnesium 1.5 L (1.6-2.3) mg/dL Assessment and Plan Plan: Assessment: 1. Acute kidney injury secondary to hemodynamic ATN. No proteinuria or hematuria on UA. Creatinine stable at 2.24 today. No hydronephrosis noted on kidney ultrasound. 2. Chronic kidney disease stage IIIb with baseline creatinine 1.4-1.6 secondary to nephrosclerosis. 3. Coronary artery disease. Patient not a candidate for CABG. 4. Advanced COPD. 5. Hypertension with chronic kidney disease. Stable. 6. Metabolic acidosis secondary to acute kidney injury. On oral bicarb. Improved. 7. Diabetes mellitus. Plan: Maintain SGLT2 inhibitor. Blood glucose control. Avoid nephrotoxins. Continue to monitor renal function and urine output. Follow-up outpatient 1 week postdischarge.
[2024-03-23 11:20] LABS: Glucose,Whole Blood 207 mg/dL (70-110)
--- NOTE | 2024-03-23 13:59 | P.PN ---
Subjective Progress Note Date: 03/23/24 HISTORY OF PRESENTING ILLNESS 73-year-old female with past medical history of multivessel CAD, COPD, perip heral arterial disease, relation present to the hospital because of increased worsening substernal chest pressure and increased shortness of breath. In January patient had a presentation for NSTEMI for which she had a heart catheterization done which showed multivessel CAD. She was evaluated by CT surgery team who denied CABG because of high surgical risk from her advanced COPD, CKD and prior multiple TIAs and CVAs. On admission ECG shows normal sinus rhythm with no new ST or T wave changes. Sh e does have Q waves in inferior leads which are old Labs shows hemoglobin 13.3, WBC 6.8, sodium 143, potassium 4.1, creatinine 2.04, BUN 39, baseline creatinine around 1.6 Hypomagnesemia Troponin was elevated at 0.152, 0.157, 0.138, NT-proBNP 193 Chest x-ray shows mild increase interstitial markings suggestive of pulmonary congestion March 21, 2024 Patient reports that her chest pain is better as compared to yesterday. She still appears very anxious. Her shortness of breath is mainly very improved since admission. BP 104/60, heart rate 83, sinus rhythm on telemetry, hemoglobin 12.8, BUN 52, creatinine 2.29 yesterday creatinine was 2.03. 03/22 Patient states that she did wake up experiencing chest pain. Blood pressure 117/69, heart rate 74, pulse ox 95% on room air. CBC within normal limits. BUN 55 creatinine 2.23. Potassium 5.0. Nephrology is following for acute kidney injury. 03/23 Apparently during the night, patient had episode of chest pain was started on nitroglycerin drip. Patient states the chest pain is better but now is having severe right hip pain and is unable to walk due to the pain. X-rays were ordered for this. Blood pressure 138/65, heart rate is in the 60s and 70s, pulse ox 93% on 3 L nasal cannula. Repeat blood work reveals BUN 52 creatinine 2.24. Nephrology is following for acute kidney injury PHYSICAL EXAMINATION Vital signs reviewed. Head: Normocephalic. Eyes: Sclerae nonicteric. Neck: Brisk carotid upstroke, no jugular venous distention. Lungs: Clear to auscultation. No significant wheezing or rhonchi appreciated Heart: Regular rate and rhythm, S1-S2, no murmur or rub. Abdomen: Soft nontender, positive bowel sounds. Extremities: No edema, intact distal pulses bilateral Neuro: Alert, oritented, no focal deficits. Detailed neuro exam was not performed. 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, 99% LCx, status post PCI to LAD Not a candidate for CABG because of low FEV1 NSTEMI type I HFpEF exacerbation, mild COPD, not in exacerbation Chronic hypoxia Hypertension Dyslipidemia CKD creatinine 2.04 on admission, baseline around 1.6 Hypomagnesemia PAD with right carotid endarterectomy and stenting Acute kidney injury PLAN Continue current cardiac medications: Aspirin 81 mg, atorvastatin 40 mg at bedtime, Plavix 75 mg, Farxiga 10 mg daily, lisinopril 2.5 mg daily Increase Coreg to 12.5 mg twice daily, increase Imdur to 60 mg daily, add amlodipine 2.5 mg daily, continue Ranexa to 1000 mg twice daily Discontinue nitroglycerin drip Discontinue heparin drip Monitor renal function. Monitor blood pressure Consider staged LCx PCI for SLIP COVER OPERATOR due to recurrent anginal symptoms. Patient kidney function under remains low, once kidney function improves, contact Dr. Hahn to see if patient would be a good candidate for LCx SLIP COVER OPERATOR PCI. Nurse practitioner note has been reviewed, I agree with documented findings and plan of care. Patient was seen and examined. Objective - Vital Signs Vital signs: Vital Signs Temp 98.2 F 03/23/24 03:54 Pulse 73 03/23/24 03:54 Resp 20 03/23/24 03:54 BP 138/65 03/23/24 03:54 Pulse Ox 92 L 03/23/24 03:54 FiO2 Intake & Output 03/22/24 03/23/24 03/23/24 18:59 06:59 18:59 Intake Total 1010.272 480 0 Output Total 400 300 Balance 610.272 180 0 Weight 75.5 kg Intake: Intake, IV Titration 234.272 Amount Heparin Sod,Pork in 0.45% 234.272 NaCl 25,000 unit In 0.45 % NaCl 1 250ml.bag @ 12 UNITS/KG/HR 8.709 mls/hr IV .Q24H [facility] Rx#: [id number] Oral 776 480 0 Output: Urine 400 300 Other: Voiding Method Toilet Bedside Commode Bedside Commode # Voids 1 - Labs CBC & Chem 7: 03/22/24 06:03 03/23/24 06:03 Labs: Abnormal Lab Results - Last 24 Hours (Table) 03/22/24 03/22/24 03/22/24 Range/Units 11:29 16:06 20:06 APTT (22.0-30.0) sec Chloride (98-107) mmol/L Carbon Dioxide (22-30) mmol/L BUN (7-17) mg/dL Creatinine (0.52-1.04) mg/dL Glucose (74-99) mg/dL POC Glucose (mg/dL) 258 H 352 H 348 H (70-110) mg/dL Magnesium (1.6-2.3) mg/dL 03/22/24 03/23/24 03/23/24 Range/Units 23:57 05:41 06:03 APTT 44.2 H (22.0-30.0) sec Chloride (98-107) mmol/L Carbon Dioxide (22-30) mmol/L BUN (7-17) mg/dL Creatinine (0.52-1.04) mg/dL Glucose (74-99) mg/dL POC Glucose (mg/dL) 160 H 206 H (70-110) mg/dL Magnesium (1.6-2.3) mg/dL 03/23/24 Range/Units 06:03 APTT (22.0-30.0) sec Chloride 109 H (98-107) mmol/L Carbon Dioxide 18 L (22-30) mmol/L BUN 52 H (7-17) mg/dL Creatinine 2.24 H (0.52-1.04) mg/dL Glucose 211 H (74-99) mg/dL POC Glucose (mg/dL) (70-110) mg/dL Magnesium 1.5 L (1.6-2.3) mg/dL
--- NOTE | 2024-03-23 15:10 | P.PN ---
Subjective Progress Note Date: 03/23/24 patient is a 73-year-old lady with past medical history significant for hypertension, hyperlipidemia, diabetes mellitus type 2, carotid artery disease, chronic kidney disease, coronary disease who presented to the ER because of chest pain. Patient was seen in January of this year with similar complaints at [facility] time patient had cardiac cath showing triple-vessel coronary artery disease patient was evaluated for CABG but later surgery decided that she should undergo PCI, patient underwent PCI to LAD in 01/12. Patient stated ever since her discharge she has been having on and off chest pain. Patient stated that she stopped taking her cholesterol medications for the last few weeks. Patient all right yesterday morning when she woke up with severe chest pain that was central location, nonradiating, no aggravating or relieving factors of the chest pain, denies any shortness of breath. Patient was complaining of nausea. There was no complaint palpitations. Because of the chest pain, patient went to her primary care doctor's office who told her to come to the ER. Initial lab work done in the ER showed WBC expanded, hemoglobin 13.3, platelet count 287, INR 0.9, sodium 143, potassium 4.1, BUN 39, creatinine 2.04 calcium 9.7, magnesium 1.3, troponin 0.152 EKG done in the ER showed heart rate of 76,, no ST segment elevation or depression seen, no T-wave inversions seen. Chest x-ray done in the ER showed cardiomegaly and mild pulmonary vascular congestion Patient admitted to internal medicine service 03/21. Patient seen and examined. Blood work this morning showed WBC 6.7, hemoglobin 8, platelet count 259, sodium 140, potassium 4.6, BUN 52, creatinine 2.29, glucose 171. Denies any chest pain. States she feels much better. 03/22/2024 Patient is evaluated today in follow up. Patient currently denies chest pain. Remains on IV heparin. Continues on oxygen via nasal cannula 2L. Potassium 5.0, BUN 55, creatinine 2.23. Blood glucose in the 300s. 03/23/2024 Patient is resting in bed today with no complaints of chest pain at this time however did have an episode of chest pressure overnight requiring nitro drip which has been turned off. Cardiology has adjusted medications further today patient continues on a combination of amlodipine, carvedilol, aspirin Plavix, Imdur, lisinopril and Ranexa. Patient states that she has not been able to sleep was on Seroquel in the past currently does not want it would recommend to give the trazadone at HS. She does complain of weakness in her bilateral extremities upper and lower since being started on the Lipitor back in January, which is why she had stopped taking it. Sodium 142, potassium 4.8, BUN of 52, creatinine of 2.24, magnesium 1.5. REVIEW OF SYSTEMS: CONSTITUTIONAL: No fever, no malaise,. CARDIOVASCULAR: No chest pain, no palpitations, no syncope. PULMONARY: No shortness of breath, no cough, GASTROINTESTINAL: No diarrhea, no nausea, no vomiting, no abdominal pain. NEUROLOGICAL: No headaches, no weakness, PHYSICAL EXAMINATION: GENERAL: The patient is alert and oriented x3, not in any acute distress. Well developed, well nourished. HEENT: Pupils are round and equally reacting to light. EOMI. No scleral icterus. No conjunctival pallor. Normocephalic, atraumatic. No pharyngeal erythema. No thyromegaly. CARDIOVASCULAR: S1 and S2 present. No murmurs, rubs, or gallops. PULMONARY: Chest is clear to auscultation, no wheezing or crackles. ABDOMEN: Soft, nontender, nondistended, normoactive bowel sounds. No palpable organomegaly. MUSCULOSKELETAL: No joint swelling or deformity. EXTREMITIES: No cyanosis, clubbing, or pedal edema. 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 SKIN: No rashes. Assessment and plan NSTEMI Acute on chronic kidney injury Hypomagnesemia Metabolic acidosis CAD including 80% mid LAD, 99% proximal circumflex and 100% subtotally occluded RCA stenosis status post PCI to LAD in 7/2 Chest pain, dyspnea with exertion consistent with angina Chronic oxygen dependent COPD. on 2L prn outpatient. Diabetes mellitus type 2 Hypomagnesemia Hypertension Hyperlipidemia Carotid artery disease Family history of CAD Remote tobacco abuse Asthma Hx of PE GI prophylaxis DVT prophylaxis on IV heparin Full Code Plan Continue telemetry monitoring Encourage use of incentive spirometer IV Heparin discontinued Continue aspirin, Plavix, Lipitor, Continue Imdur and lisinopril Additionally cardiology has increased carvedilol, imdur and ranexa Cardiology following, added Jardiance recommend staged left circumflex PCI for OYSTER GROWER due to recurrent anginal symptoms Staged intervention pending improvement in renal function Check CK levels, consult PT Nephrology following, cardiology following Repeat blood work in the AM The impression and plan of care has been dictated by Jennifer Love, Nurse Practitioner as directed. Dr. Dequan MD I have performed a history and physical examination and medical decision making of this patient, discussed the same with the dictator, and agree with the dictators assessment and plan as written, documented as a scribe. Based on total visit time, I have performed more than 50% of this visit. Objective - Vital Signs Vital signs: Vital Signs Temp 97.5 F L 03/23/24 08:00 Pulse 65 03/23/24 10:59 Resp 18 03/23/24 10:59 BP 105/59 03/23/24 10:59 Pulse Ox 92 L 03/23/24 10:59 FiO2 Intake & Output 03/22/24 03/23/24 03/23/24 18:59 06:59 18:59 Intake Total 1010.272 480 222 Output Total 400 300 Balance 610.272 180 222 Weight 75.5 kg Intake: Intake, IV Titration 234.272 Amount Heparin Sod,Pork in 0.45% 234.272 NaCl 25,000 unit In 0.45 % NaCl 1 250ml.bag @ 12 UNITS/KG/HR 8.709 mls/hr IV .Q24H [facility] Rx#: [id number] Oral 776 480 222 Output: Urine 400 300 Other: Voiding Method Toilet Bedside Commode Bedside Commode Bedside Commode # Voids 1 - Labs CBC & Chem 7: 03/22/24 06:03 03/23/24 06:03 Labs: Abnormal Lab Results - Last 24 Hours (Table) 03/22/24 03/22/24 03/22/24 Range/Units 16:06 20:06 23:57 APTT (22.0-30.0) sec Chloride (98-107) mmol/L Carbon Dioxide (22-30) mmol/L BUN (7-17) mg/dL Creatinine (0.52-1.04) mg/dL Glucose (74-99) mg/dL POC Glucose (mg/dL) 352 H 348 H 160 H (70-110) mg/dL Magnesium (1.6-2.3) mg/dL 03/23/24 03/23/24 03/23/24 Range/Units 05:41 06:03 06:03 APTT 44.2 H (22.0-30.0) sec Chloride 109 H (98-107) mmol/L Carbon Dioxide 18 L (22-30) mmol/L BUN 52 H (7-17) mg/dL Creatinine 2.24 H (0.52-1.04) mg/dL Glucose 211 H (74-99) mg/dL POC Glucose (mg/dL) 206 H (70-110) mg/dL Magnesium 1.5 L (1.6-2.3) mg/dL 03/23/24 Range/Units 11:19 APTT (22.0-30.0) sec Chloride (98-107) mmol/L Carbon Dioxide (22-30) mmol/L BUN (7-17) mg/dL Creatinine (0.52-1.04) mg/dL Glucose (74-99) mg/dL POC Glucose (mg/dL) 207 H (70-110) mg/dL Magnesium (1.6-2.3) mg/dL Assessment and Plan Time with Patient: Less than 30
[2024-03-23 16:18] LABS: Glucose,Whole Blood 185 mg/dL (70-110)
[2024-03-23] MEDS: carvediloL 12.5 MG TAB PO SCH (17:07)
[2024-03-23 20:08] LABS: Glucose,Whole Blood 322 mg/dL (70-110)
[2024-03-23] MEDS: HEPARIN SODIUM,PORCINE 5,000 UNIT/ML 1 ML VIAL SQ SCH (20:55)
[2024-03-24 06:18] LABS: Glucose,Whole Blood 244 mg/dL (70-110)
[2024-03-24 08:24] LABS: Glucose,Whole Blood 193 mg/dL (70-110)
[2024-03-24 09:27] LABS: African American GFR (CKD) 22 (>60 ml/min/1.73 sqM); Anion Gap 11 mmol/L; Blood Urea Nitrogen 53 mg/dL (7-17); Calcium 9.1 mg/dL (8.4-10.2); Carbon Dioxide 22 mmol/L (22-30); Chloride 106 mmol/L (98-107); Glucose 176 mg/dL (74-99); Magnesium 1.9 mg/dL (1.6-2.3); Non-African American GFR(CKD) 19 (>60 ml/min/1.73 sqM); Potassium 4.8 mmol/L (3.5-5.1); Sodium 139 mmol/L (137-145)
--- NOTE | 2024-03-24 10:20 | P.PN ---
Subjective Patient is seen in follow-up for acute kidney injury on chronic kidney disease. Renal function little worse. Blood pressure on the lower side. Denies chest pain or shortness of breath. On nasal cannula. Admits to good urine output. Vital signs are stable. Blood pressure low. General: No acute distress. HEENT: Head exam is unremarkable. On nasal cannula. LUNGS: No audible rhonchi or wheezes. HEART: Rate and Rhythm are regular. ABDOMEN: No distention. EXTREMITITES: No edema. Objective - Vital Signs Vital signs: Vital Signs Temp 97.4 F L 03/24/24 08:01 Pulse 68 03/24/24 09:30 Resp 20 03/24/24 09:30 BP 97/51 03/24/24 09:30 Pulse Ox 96 03/24/24 09:30 FiO2 Intake & Output 03/23/24 03/24/24 03/24/24 18:59 06:59 18:59 Intake Total 342 10 120 Output Total 500 300 Balance -158 -290 120 Weight 77.5 kg Intake: IV 10 Invasive Line 2 10 Oral 342 120 Output: Urine 300 300 Post Void Residual 200 Other: Voiding Method Bedside Commode Bedside Commode Bedside Commode - Labs CBC & Chem 7: 03/22/24 06:03 03/24/24 08:27 Labs: Abnormal Lab Results - Last 24 Hours (Table) 03/23/24 03/23/24 03/23/24 Range/Units 11:19 16:13 20:03 BUN (7-17) mg/dL Creatinine (0.52-1.04) mg/dL Glucose (74-99) mg/dL POC Glucose (mg/dL) 207 H 185 H 322 H (70-110) mg/dL 03/24/24 03/24/24 03/24/24 Range/Units 06:09 08:22 08:27 BUN 53 H (7-17) mg/dL Creatinine 2.40 H (0.52-1.04) mg/dL Glucose 176 H (74-99) mg/dL POC Glucose (mg/dL) 244 H 193 H (70-110) mg/dL Assessment and Plan Plan: Assessment: 1. Acute kidney injury secondary to hemodynamic ATN. No proteinuria or hematuria on UA. Creatinine up to 2.4 today. No hydronephrosis noted on kidney ultrasound. 2. Chronic kidney disease stage IIIb with baseline creatinine 1.4-1.6 secondary to nephrosclerosis. 3. Coronary artery disease. Patient not a candidate for CABG. 4. Advanced COPD. 5. Hypertension with chronic kidney disease. Stable. 6. Metabolic acidosis secondary to acute kidney injury. On oral bicarb. Improved. 7. Diabetes mellitus. Plan: Maintain SGLT2 inhibitor. Decrease dose to 5 mg. Stop amlodipine. Blood glucose control. Avoid nephrotoxins. Continue to monitor renal function and urine output. Follow-up outpatient 1 week postdischarge.
[2024-03-24 11:21] LABS: Glucose,Whole Blood 208 mg/dL (70-110)
--- NOTE | 2024-03-24 11:43 | P.PN ---
Subjective Progress Note Date: 03/24/24 HISTORY OF PRESENTING ILLNESS 73-year-old female with past medical history of multivessel CAD, COPD, perip heral arterial disease, relation present to the hospital because of increased worsening substernal chest pressure and increased shortness of breath. In January patient had a presentation for NSTEMI for which she had a heart catheterization done which showed multivessel CAD. She was evaluated by CT surgery team who denied CABG because of high surgical risk from her advanced COPD, CKD and prior multiple TIAs and CVAs. On admission ECG shows normal sinus rhythm with no new ST or T wave changes. Sh e does have Q waves in inferior leads which are old Labs shows hemoglobin 13.3, WBC 6.8, sodium 143, potassium 4.1, creatinine 2.04, BUN 39, baseline creatinine around 1.6 Hypomagnesemia Troponin was elevated at 0.152, 0.157, 0.138, NT-proBNP 1929 Chest x-ray shows mild increase interstitial markings suggestive of pulmonary congestion March 21, 2024 Patient reports that her chest pain is better as compared to yesterday. She still appears very anxious. Her shortness of breath is mainly very improved since admission. BP 104/60, heart rate 83, sinus rhythm on telemetry, hemoglobin 12.8, BUN 52, creatinine 2.29 yesterday creatinine was 2.03. 03/22 Patient states that she did wake up experiencing chest pain. Blood pressure 117/69, heart rate 74, pulse ox 95% on room air. CBC within normal limits. BUN 55 creatinine 2.23. Potassium 5.0. Nephrology is following for acute kidney injury. 03/23 Apparently during the night, patient had episode of chest pain was started on nitroglycerin drip. Patient states the chest pain is better but now is having severe right hip pain and is unable to walk due to the pain. X-rays were ordered for this. Blood pressure 138/65, heart rate is in the 60s and 70s, pulse ox 93% on 3 L nasal cannula. Repeat blood work reveals BUN 52 creatinine 2.24. Nephrology is following for acute kidney injury 03/24 Patient's blood pressure is low today. She is feeling tired has a little bit of chest pain and after [place] pain is a #2. Yesterday and the day before we have made many changes in her medications that could affect her blood pressure. Heart rate is in the 60s and 70s. Renal function continues to worsen possibly due to hypotension. Patient is followed by nephrology. Amlodipine was discontinued this morning by nephrology. PHYSICAL EXAMINATION Vital signs reviewed. Head: Normocephalic. Eyes: Sclerae nonicteric. Neck: Brisk carotid upstroke, no jugular venous distention. Lungs: Clear to auscultation. No significant wheezing or rhonchi appreciated Heart: Regular rate and rhythm, S1-S2, no murmur or rub. Abdomen: Soft nontender, positive bowel sounds. Extremities: No edema, intact distal pulses bilateral Neuro: Alert, oritented, no focal deficits. Detailed neuro exam was not performed. 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, 99% LCx, status post PCI to LAD Not a candidate for CABG because of low FEV1 NSTEMI type I HFpEF exacerbation, mild COPD, not in exacerbation Chronic hypoxia Hypertension Dyslipidemia CKD creatinine 2.04 on admission, baseline around 1.6 Hypomagnesemia PAD with right carotid endarterectomy and stenting Acute kidney injury PLAN Continue current cardiac medications: Aspirin 81 mg, atorvastatin 40 mg at bedtime, Plavix 75 mg, Farxiga 10 mg daily, lisinopril 2.5 mg daily, Imdur 60 mg daily, Ranexa 1000 mg twice daily Decrease Coreg to 6.25 mg twice daily Amlodipine discontinued by nephrology Monitor renal function. Monitor blood pressure Consider staged LCx PCI for HEALTH AND SAFETY CONSULTANT due to recurrent anginal symptoms. Patient kidney function under remains low, once kidney function improves, contact Dr. Hahn to see if patient would be a good candidate for LCx HEALTH AND SAFETY CONSULTANT PCI. Nurse practitioner note has been reviewed, I agree with documented findings and plan of care. Patient was seen and examined. Objective - Vital Signs Vital signs: Vital Signs Temp 97.4 F L 03/24/24 08:01 Pulse 70 03/24/24 11:12 Resp 20 03/24/24 11:12 BP 121/66 03/24/24 11:12 Pulse Ox 92 L 03/24/24 11:12 FiO2 Intake & Output 03/23/24 03/24/24 03/24/24 18:59 06:59 18:59 Intake Total 342 10 120 Output Total 500 300 Balance -158 -290 120 Weight 77.5 kg Intake: IV 10 Invasive Line 2 10 Oral 342 120 Output: Urine 300 300 Post Void Residual 200 Other: Voiding Method Bedside Commode Bedside Commode Bedside Commode - Labs CBC & Chem 7: 03/22/24 06:03 03/24/24 08:27 Labs: Abnormal Lab Results - Last 24 Hours (Table) 03/23/24 03/23/24 03/24/24 Range/Units 16:13 20:03 06:09 BUN (7-17) mg/dL Creatinine (0.52-1.04) mg/dL Glucose (74-99) mg/dL POC Glucose (mg/dL) 185 H 322 H 244 H (70-110) mg/dL 03/24/24 03/24/24 03/24/24 Range/Units 08:22 08:27 11:13 BUN 53 H (7-17) mg/dL Creatinine 2.40 H (0.52-1.04) mg/dL Glucose 176 H (74-99) mg/dL POC Glucose (mg/dL) 193 H 208 H (70-110) mg/dL
[2024-03-24 16:18] LABS: Glucose,Whole Blood 176 mg/dL (70-110)
[2024-03-24] MEDS: carvediloL 6.25 MG TAB PO SCH (17:29)
[2024-03-24 20:16] LABS: Glucose,Whole Blood 158 mg/dL (70-110)
--- NOTE | 2024-03-24 21:15 | P.PN ---
Progress Note - Text Progress Note Date: 03/24/24 patient is a 73-year-old lady with past medical history significant for hypertension, hyperlipidemia, diabetes mellitus type 2, carotid artery disease, chronic kidney disease, coronary disease who presented to the ER because of chest pain. Patient was seen in January of this year with similar complaints at which time patient had cardiac cath showing triple-vessel coronary artery disease patient was evaluated for CABG but later surgery decided that she should undergo PCI, patient underwent PCI to LAD in 01/12. Patient stated ever since her discharge she has been having on and off chest pain. Patient stated that she stopped taking her cholesterol medications for the last few weeks. Patient all right yesterday morning when she woke up with severe chest pain that was central location, nonradiating, no aggravating or relieving factors of the chest pain, denies any shortness of breath. Patient was complaining of nausea. There was no complaint palpitations. Because of the chest pain, patient went to her primary care doctor's office who told her to come to the ER. Initial lab work done in the ER showed WBC expanded, hemoglobin 13.3, platelet count 287, INR 0.9, sodium 143, potassium 4.1, BUN 39, creatinine 2.04 calcium 9.7, magnesium 1.3, troponin 0.152 EKG done in the ER showed heart rate of 76,, no ST segment elevation or depression seen, no T-wave inversions seen. Chest x-ray done in the ER showed cardiomegaly and mild pulmonary vascular congestion Patient admitted to internal medicine service 03/21. Patient seen and examined. Blood work this morning showed WBC 6.7, hemoglobin 8, platelet count 259, sodium 140, potassium 4.6, BUN 52, creatinine 2.29, glucose 171. Denies any chest pain. States she feels much better. 03/22/2024 Patient is evaluated today in follow up. Patient currently denies chest pain. Remains on IV heparin. Continues on oxygen via nasal cannula 2L. Potassium 5.0, BUN 55, creatinine 2.23. Blood glucose in the 300s. 03/23/2024 Patient is resting in bed today with no complaints of chest pain at this time however did have an episode of chest pressure overnight requiring nitro drip which has been turned off. Cardiology has adjusted medications further today patient continues on a combination of amlodipine, carvedilol, aspirin Plavix, Imdur, lisinopril and Ranexa. Patient states that she has not been able to sleep was on Seroquel in the past currently does not want it would recommend to give the trazadone at . She does complain of weakness in her bilateral extremities upper and lower since being started on the Lipitor back in January, which is why she had stopped taking it. Sodium 142, potassium 4.8, BUN of 52, creatinine of 2.24, magnesium 1.5. March 24, 2024: Laying in bed. Brother very tired. Blood pressure running low around 90 systolic. On 4 L nasal cannula. Sinus rhythm. Getting intermittent chest pain. Eating fair. Per cardiology for staged intervention. Active Medications Acetaminophen (Acetaminophen Tab 325 Mg Tab) 650 mg PO Q6HR PRN PRN Reason: Fever and/ or Pain Hydrocodone Bitart/Acetaminophen (Hydrocodone/Apap 5-325mg 1 Each Tab) 1 each PO Q6HR PRN PRN Reason: Pain Last Admin: 03/24/24 16:13 Dose: 1 each Albuterol Sulfate (Albuterol Hfa Inhaler) 2 puff INHALATION RT-Q4H PRN PRN Reason: Dyspnea Last Admin: 03/24/24 20:19 Dose: 2 puff Aspirin (Aspirin 81 Mg) 81 mg PO DAILY [facility] Last Admin: 03/24/24 08:14 Dose: 81 mg Atorvastatin Calcium (Atorvastatin 40 Mg Tab) 40 mg PO HS [facility] Last Admin: 03/24/24 20:52 Dose: 40 mg Budesonide/Formoterol Fumarate (Symbicort 80-4.5 Mcg Inhaler) 2 puff INHALATION RT-BID [facility] Last Admin: 03/24/24 20:19 Dose: 2 puff Carvedilol (Carvedilol 6.25 Mg Tab) 6.25 mg PO BID-W/MEALS [facility] Last Admin: 03/24/24 17:29 Dose: 6.25 mg Clopidogrel Bisulfate (Clopidogrel 75 Mg Tab) 75 mg PO DAILY [facility] Last Admin: 03/24/24 08:14 Dose: 75 mg Dapagliflozin (Dapagliflozin Propanediol 5 Mg Tablet) 5 mg PO DAILY [facility] Dextrose/Water (Dextrose 50% Syringe 50 Ml) 50 ml IVP PER PROTOCOL PRN; Protocol PRN Reason: Hypoglycemia Dextrose/Water (Dextrose 50% Syringe 50 Ml) 25 ml IVP PER PROTOCOL PRN; Protocol PRN Reason: Hypoglycemia Heparin Sodium (Porcine) (Heparin Sodium,Porcine 5,000 Unit/Ml 1 Ml Vial) 5,000 unit SQ Q12HR [facility] Last Admin: 03/24/24 20:53 Dose: 5,000 unit Insulin Aspart (Insulin Aspart (Novolog) 100 Unit/Ml Vial) 0 unit SQ ACHS [facility]; Protocol Last Admin: 03/24/24 20:53 Dose: 3 unit Insulin Aspart (Insulin Aspart (Novolog) 100 Unit/Ml Vial) 6 unit SQ AC-TID [facility] Last Admin: 03/24/24 17:29 Dose: 6 unit Insulin Detemir (Insulin Detemir (Levemir) 100 Unit/Ml Syr) 10 unit SQ DAILY @0700 [facility] Last Admin: 03/24/24 06:44 Dose: 10 unit Isosorbide Mononitrate (Isosorbide Mononitrate Er 60 Mg Tab.Er.24h) 60 mg PO DAILY [facility] Last Admin: 03/24/24 08:14 Dose: 60 mg Lisinopril (Lisinopril 2.5 Mg Tab) 2.5 mg PO DAILY [facility] Last Admin: 03/24/24 08:10 Dose: Not Given Miscellaneous Information (Magnesium Replacement Protocol 1 Each Misc) 1 each MISCELLANE DAILY PRN; Protocol PRN Reason: Per Protocol Naloxone HCl (Naloxone 0.4 Mg/Ml 1 Ml Vial) 0.2 mg IV Q2M PRN PRN Reason: Opioid Reversal Ondansetron HCl (Ondansetron 4 Mg/2 Ml Vial) 4 mg IVP Q8HR PRN PRN Reason: Nausea And Vomiting Ranolazine (Ranolazine 500 Mg Tab.Er.12h) 1,000 mg PO Q12HR [facility] Last Admin: 03/24/24 20:52 Dose: 1,000 mg Sodium Bicarbonate (Sodium Bicarbonate Tab 650 Mg Tab) 650 mg PO BID [facility] Last Admin: 03/24/24 20:52 Dose: 650 mg Trazodone HCl (Trazodone Hcl 50 Mg Tab) 25 mg PO HS PRN PRN Reason: Insomnia Last Admin: 03/24/24 20:52 Dose: 25 mg On examination: VITAL SIGNS: [97.9, 74, 20, 132 x 70, 93% on 4 L] GENERAL APPEARANCE: BMI 28.4, laying in bed very tired appearing HEENT: Normal external appearance of nose and ear. Oral cavity normal EYES: Pupils equal. Conjunctiva normal. NECK: JVD not raised. Mass not palpable. RESPIRATORY: Respiratory effort normal. Lungs clear to auscultation. CARDIOVASCULAR: First and second sounds normal. No edema. ABDOMEN: Soft. Liver and spleen not palpable. No tenderness. No mass palpable. PSYCHIATRY: Questionable very tired appearing . INVESTIGATIONS, reviewed in the clinical context: March 24: Sodium 139 potassium 4.8 BUN 53 creatinine 2.40 March 19: Creatinine 2.04 2D echo: EF 55 to 60% Renal ultrasound: No hydronephrosis. Multiple nonshadowing parenchyma calcifications. Assessment and plan -NSTEMI -Postinfarct angina after coronary intervention: Not improving Imdur. Patient for staged intervention Acute on chronic kidney injury secondary to ATN from hemodynamic mismatch. Renal ultrasound showed no hydronephrosis. -Chronic kidney disease stage IIIb with baseline creatinine of 1.4-1.6 secondary to nephrosclerosis Hypomagnesemia Metabolic acidosis, due to acute kidney injury. Improved Received bicarbonate -CAD including 80% mid LAD, 99% proximal circumflex and 100% subtotally occluded RCA stenosis status post PCI to LAD in 01/12 Cardiology following -Chronic oxygen dependent COPD. on 2L prn outpatient.- Diabetes mellitus type 2, chronically on insulin Levemir. Follow Accu-Cheks Hypomagnesemia Follow labs -Essential hypertension Lisinopril, Coreg, Imdur -Hyperlipidemia Lipitor -COPD in previous smoker Symbicort. Ventolin HFA as needed Full Code Follow-up with cardiology, nephrology
[2024-03-25 05:10] LABS: African American GFR (CKD) 22 (>60 ml/min/1.73 sqM); Anion Gap 12 mmol/L; Blood Urea Nitrogen 53 mg/dL (7-17); Calcium 9.1 mg/dL (8.4-10.2); Carbon Dioxide 20 mmol/L (22-30); Chloride 106 mmol/L (98-107); Glucose 178 mg/dL (74-99); Magnesium 1.8 mg/dL (1.6-2.3); Non-African American GFR(CKD) 19 (>60 ml/min/1.73 sqM); Potassium 5.2 mmol/L (3.5-5.1); Sodium 138 mmol/L (137-145)
[2024-03-25 06:06] LABS: Glucose,Whole Blood 190 mg/dL (70-110)
[2024-03-25] MEDS: MAGNESIUM SULFATE-D5W PMX 1 GM in DEXTROSE/WATER 1 100ML.BAG IVPB ONE (06:35)
[2024-03-25] MEDS ORDERED: POTASSIUM CHLORIDE ER 20 MEQ TAB.ER PO SCH (07:00)
[2024-03-25] MEDS: DAPAGLIFLOZIN PROPANEDIOL 5 MG TABLET PO SCH (08:50)
[2024-03-25 08:54] VITALS: BMI 28.5
--- NOTE | 2024-03-25 10:49 | P.PN ---
Subjective Patient is seen in follow-up for acute kidney injury on chronic kidney disease. Renal function stable. Blood pressure on the lower side. Denies chest pain or shortness of breath. On nasal cannula. Admits to good urine output. Vital signs are stable. Blood pressure low. General: No acute distress. HEENT: Head exam is unremarkable. On nasal cannula. LUNGS: No audible rhonchi or wheezes. HEART: Rate and Rhythm are regular. ABDOMEN: No distention. EXTREMITITES: No edema. Objective - Vital Signs Vital signs: Vital Signs Temp 97.0 F L 03/25/24 07:24 Pulse 72 03/25/24 08:45 Resp 20 03/25/24 08:45 BP 96/61 03/25/24 08:45 Pulse Ox 92 L 03/25/24 08:45 FiO2 Intake & Output 03/24/24 03/25/24 03/25/24 18:59 06:59 18:59 Intake Total 240 10 10 Output Total 200 700 Balance 40 -690 10 Weight 77.7 kg 77.7 kg Intake: IV 10 10 Invasive Line 2 10 10 Oral 240 Output: Urine 200 700 Other: Voiding Method Bedside Commode Bedside Commode - Labs CBC & Chem 7: 03/22/24 06:03 03/25/24 04:21 Labs: Abnormal Lab Results - Last 24 Hours (Table) 03/24/24 03/24/24 03/24/24 Range/Units 11:13 16:13 20:13 Potassium (3.5-5.1) mmol/L Carbon Dioxide (22-30) mmol/L BUN (7-17) mg/dL Creatinine (0.52-1.04) mg/dL Glucose (74-99) mg/dL POC Glucose (mg/dL) 208 H 176 H 158 H (70-110) mg/dL 03/25/24 03/25/24 Range/Units 04:21 06:05 Potassium 5.2 H (3.5-5.1) mmol/L Carbon Dioxide 20 L (22-30) mmol/L BUN 53 H (7-17) mg/dL Creatinine 2.40 H (0.52-1.04) mg/dL Glucose 178 H (74-99) mg/dL POC Glucose (mg/dL) 190 H (70-110) mg/dL Assessment and Plan Plan: Assessment: 1. Acute kidney injury secondary to hemodynamic ATN. No proteinuria or hematuria on UA. Creatinine stable at 2.4. No hydronephrosis noted on kidney ultrasound. 2. Chronic kidney disease stage IIIb with baseline creatinine 1.4-1.6 secondary to nephrosclerosis. 3. Coronary artery disease. Patient not a candidate for CABG. 4. Advanced COPD. 5. Hypertension with chronic kidney disease. Blood pressure on the lower side. 6. Metabolic acidosis secondary to acute kidney injury. On oral bicarb. 7. Diabetes mellitus. Plan: Maintain SGLT2 inhibitor. Decreased dose to 5 mg. Amlodipine discontinued March 24, 2024. Also hold lisinopril for now due to hypotension. Blood glucose control. Avoid nephrotoxins. Continue to monitor renal function and urine output.
[2024-03-25 11:38] LABS: Glucose,Whole Blood 197 mg/dL (70-110)
[2024-03-25] MEDS: PANTOPRAZOLE 40 MG TABLET PO SCH (11:48)
[2024-03-25 16:17] LABS: Glucose,Whole Blood 206 mg/dL (70-110)
--- NOTE | 2024-03-25 16:30 | P.PN ---
Progress Note - Text Progress Note Date: 03/25/24 patient is a 73-year-old lady with past medical history significant for hypertension, hyperlipidemia, diabetes mellitus type 2, carotid artery disease, chronic kidney disease, coronary disease who presented to the ER because of chest pain. Patient was seen in January of this year with similar complaints at which time patient had cardiac cath showing triple-vessel coronary artery disease patient was evaluated for CABG but later surgery decided that she should undergo PCI, patient underwent PCI to LAD in 01/12. Patient stated ever since her discharge she has been having on and off chest pain. Patient stated that she stopped taking her cholesterol medications for the last few weeks. Patient all right yesterday morning when she woke up with severe chest pain that was central location, nonradiating, no aggravating or relieving factors of the chest pain, denies any shortness of breath. Patient was complaining of nausea. There was no complaint palpitations. Because of the chest pain, patient went to her primary care doctor's office who told her to come to the ER. Initial lab work done in the ER showed WBC expanded, hemoglobin 13.3, platelet count 287, INR 0.9, sodium 143, potassium 4.1, BUN 39, creatinine 2.04 calcium 9.7, magnesium 1.3, troponin 0.152 EKG done in the ER showed heart rate of 76,, no ST segment elevation or depression seen, no T-wave inversions seen. Chest x-ray done in the ER showed cardiomegaly and mild pulmonary vascular congestion Patient admitted to internal medicine service 03/21. Patient seen and examined. Blood work this morning showed WBC 6.7, hemoglobin 8, platelet count 259, sodium 140, potassium 4.6, BUN 52, creatinine 2.29, glucose 171. Denies any chest pain. States she feels much better. 03/22/2024 Patient is evaluated today in follow up. Patient currently denies chest pain. Remains on IV heparin. Continues on oxygen via nasal cannula 2L. Potassium 5.0, BUN 55, creatinine 2.23. Blood glucose in the 300s. 03/23/2024 Patient is resting in bed today with no complaints of chest pain at this time however did have an episode of chest pressure overnight requiring nitro drip which has been turned off. Cardiology has adjusted medications further today patient continues on a combination of amlodipine, carvedilol, aspirin Plavix, Imdur, lisinopril and Ranexa. Patient states that she has not been able to sleep was on Seroquel in the past currently does not want it would recommend to give the trazadone at . She does complain of weakness in her bilateral extremities upper and lower since being started on the Lipitor back in January, which is why she had stopped taking it. Sodium 142, potassium 4.8, BUN of 52, creatinine of 2.24, magnesium 1.5. March 24, 2024: Laying in bed. Brother very tired. Blood pressure running low around 90 systolic. On 4 L nasal cannula. Sinus rhythm. Getting intermittent chest pain. Eating fair. Per cardiology for staged intervention. March 25: No further chest pain. Medications were further adjusted by cardiology. Did sit up in the chair for couple of hours. Patient does not want to go to rehab. Discussed with family preservation caseworker. Given hyperkalemia in setting of kidney injury, will hold off PETER inhibitor for now. Eating some Active Medications Acetaminophen (Acetaminophen Tab 325 Mg Tab) 650 mg PO Q6HR PRN PRN Reason: Fever and/ or Pain Hydrocodone Bitart/Acetaminophen (Hydrocodone/Apap 5-325mg 1 Each Tab) 1 each PO Q6HR PRN PRN Reason: Pain Last Admin: 03/25/24 06:26 Dose: 1 each Albuterol Sulfate (Albuterol Hfa Inhaler) 2 puff INHALATION RT-Q4H PRN PRN Reason: Dyspnea Last Admin: 03/24/24 20:19 Dose: 2 puff Aspirin (Aspirin 81 Mg) 81 mg PO DAILY [facility] Last Admin: 03/25/24 08:50 Dose: 81 mg Atorvastatin Calcium (Atorvastatin 40 Mg Tab) 40 mg PO HS [facility] Last Admin: 03/24/24 20:52 Dose: 40 mg Budesonide/Formoterol Fumarate (Symbicort 80-4.5 Mcg Inhaler) 2 puff INHALATION RT-BID [facility] Last Admin: 03/25/24 07:44 Dose: 2 puff Carvedilol (Carvedilol 6.25 Mg Tab) 6.25 mg PO BID-W/MEALS [facility] Last Admin: 03/25/24 06:26 Dose: 6.25 mg Clopidogrel Bisulfate (Clopidogrel 75 Mg Tab) 75 mg PO DAILY [facility] Last Admin: 03/25/24 08:50 Dose: 75 mg Dextrose/Water (Dextrose 50% Syringe 50 Ml) 50 ml IVP PER PROTOCOL PRN; Protocol PRN Reason: Hypoglycemia Dextrose/Water (Dextrose 50% Syringe 50 Ml) 25 ml IVP PER PROTOCOL PRN; Protocol PRN Reason: Hypoglycemia Heparin Sodium (Porcine) (Heparin Sodium,Porcine 5,000 Unit/Ml 1 Ml Vial) 5,000 unit SQ Q12HR [facility] Last Admin: 03/25/24 08:51 Dose: 5,000 unit Insulin Aspart (Insulin Aspart (Novolog) 100 Unit/Ml Vial) 0 unit SQ ACHS [facility]; Protocol Last Admin: 03/25/24 11:48 Dose: 3 unit Insulin Aspart (Insulin Aspart (Novolog) 100 Unit/Ml Vial) 6 unit SQ AC-TID [facility] Last Admin: 03/25/24 11:49 Dose: 6 unit Insulin Detemir (Insulin Detemir (Levemir) 100 Unit/Ml Syr) 10 unit SQ DAILY@0700 [facility] Last Admin: 03/25/24 06:32 Dose: 10 unit Isosorbide Mononitrate (Isosorbide Mononitrate Er 60 Mg Tab.Er.24h) 60 mg PO DAILY [facility] Last Admin: 03/25/24 08:50 Dose: 60 mg Lisinopril (Lisinopril 2.5 Mg Tab) 2.5 mg PO DAILY [facility] Last Admin: 03/25/24 08:49 Dose: Not Given Miscellaneous Information (Magnesium Replacement Protocol 1 Each Misc) 1 each MISCELLANE DAILY PRN; Protocol PRN Reason: Per Protocol Naloxone HCl (Naloxone 0.4 Mg/Ml 1 Ml Vial) 0.2 mg IV Q2M PRN PRN Reason: Opioid Reversal Ondansetron HCl (Ondansetron 4 Mg/2 Ml Vial) 4 mg IVP Q8HR PRN PRN Reason: Nausea And Vomiting Pantoprazole Sodium (Pantoprazole 40 Mg Tablet) 40 mg PO AC-BRKFST [facility] Last Admin: 03/25/24 11:48 Dose: 40 mg Ranolazine (Ranolazine 500 Mg Tab.Er.12h) 1,000 mg PO Q12HR [facility] Last Admin: 03/25/24 08:50 Dose: 1,000 mg Sodium Bicarbonate (Sodium Bicarbonate Tab 650 Mg Tab) 650 mg PO BID [facility] Last Admin: 03/25/24 08:50 Dose: 650 mg Trazodone HCl (Trazodone Hcl 50 Mg Tab) 25 mg PO HS PRN PRN Reason: Insomnia Last Admin: 03/24/24 20:52 Dose: 25 mg On examination: VITAL SIGNS: 98.2, 74, 20, 118 x 67, 98% on 4 L GENERAL APPEARANCE: BMI 28.4, laying in bed, bed tired HEENT: Normal external appearance of nose and ear. Oral cavity normal EYES: Pupils equal. Conjunctiva normal. NECK: JVD not raised. Mass not palpable. RESPIRATORY: Respiratory effort normal. Lungs clear to auscultation. CARDIOVASCULAR: First and second sounds normal. No edema. ABDOMEN: Soft. Liver and spleen not palpable. No tenderness. No mass palpable. PSYCHIATRY: Questionable very tired appearing . INVESTIGATIONS, reviewed in the clinical context: March 25: Potassium 5.2 BUN 53 creatinine 2.4 March 24: Sodium 139 potassium 4.8 BUN 53 creatinine 2.40 March 19: Creatinine 2.04 2D echo: EF 55 to 60% Renal ultrasound: No hydronephrosis. Multiple nonshadowing parenchyma calcifications. Assessment and plan -NSTEMI -Postinfarct angina after coronary intervention: Better Imdur. Patient for staged intervention Acute on chronic kidney injury secondary to ATN from hemodynamic mismatch. Renal ultrasound showed no hydronephrosis. -Chronic kidney disease stage IIIb with baseline creatinine of 1.4-1.6 secondary to nephrosclerosis Hypomagnesemia Metabolic acidosis, due to acute kidney injury. Improved Received bicarbonate -CAD including 80% mid LAD, 99% proximal circumflex and 100% subtotally occluded RCA stenosis status post PCI to LAD in 01/12 Cardiology following -Chronic oxygen dependent COPD. on 2L prn outpatient.- Diabetes mellitus type 2, chronically on insulin Levemir. Follow Accu-Cheks Hypomagnesemia Follow labs -Essential hypertension Lisinopril-hold, Coreg, Imdur -Hyperlipidemia Lipitor -COPD in previous smoker Symbicort. Ventolin HFA as needed -Disposition, patient keen to go home Full Code Hold off lisinopril in setting of kidney disease and hyperkalemia. Increase activity as tolerated.
--- NOTE | 2024-03-25 17:37 | P.PN ---
Subjective Progress Note Date: 03/25/24 HISTORY OF PRESENTING ILLNESS 73-year-old female with past medical history of multivessel CAD, COPD, perip heral arterial disease, relation present to the hospital because of increased worsening substernal chest pressure and increased shortness of breath. In January patient had a presentation for NSTEMI for which she had a heart catheterization done which showed multivessel CAD. She was evaluated by CT surgery team who denied CABG because of high surgical risk from her advanced COPD, CKD and prior multiple TIAs and CVAs. On admission ECG shows normal sinus rhythm with no new ST or T wave changes. Sh e does have Q waves in inferior leads which are old Labs shows hemoglobin 13.3, WBC 6.8, sodium 143, potassium 4.1, creatinine 2.04, BUN 39, baseline creatinine around 1.6 Hypomagnesemia Troponin was elevated at 0.152, 0.157, 0.138, NT-proBNP 1929 Chest x-ray shows mild increase interstitial markings suggestive of pulmonary congestion March 21, 2024 Patient reports that her chest pain is better as compared to yesterday. She still appears very anxious. Her shortness of breath is mainly very improved since admission. BP 104/60, heart rate 83, sinus rhythm on telemetry, hemoglobin 12.8, BUN 52, creatinine 2.29 yesterday creatinine was 2.03. 03/22 Patient states that she did wake up experiencing chest pain. Blood pressure 117/69, heart rate 74, pulse ox 95% on room air. CBC within normal limits. BUN 55 creatinine 2.23. Potassium 5.0. Nephrology is following for acute kidney injury. 03/23 Apparently during the night, patient had episode of chest pain was started on nitroglycerin drip. Patient states the chest pain is better but now is having severe right hip pain and is unable to walk due to the pain. X-rays were ordered for this. Blood pressure 138/65, heart rate is in the 60s and 70s, pulse ox 93% on 3 L nasal cannula. Repeat blood work reveals BUN 52 creatinine 2.24. Nephrology is following for acute kidney injury 03/24 Patient's blood pressure is low today. She is feeling tired has a little bit of chest pain and after Mcdonald pain is a #2. Yesterday and the day before we have made many changes in her medications that could affect her blood pressure. Heart rate is in the 60s and 70s. Renal function continues to worsen possibly due to hypotension. Patient is followed by nephrology. Amlodipine was discontinued this morning by nephrology. 03/25 Patient continues to have blood pressures that are very soft. Lisinopril held this morning. Patient is stating that she cannot sleep. She is complaining of joint pain especially in her hands and feet but all over. She is also complaining of what seems to be a gastric reflux for which Protonix will be adde d. Possibly chest pain is more so GERD versus cardiac in etiology. Farxiga and lisinopril discontinued by nephrology. PHYSICAL EXAMINATION Vital signs reviewed. Head: Normocephalic. Eyes: Sclerae nonicteric. Neck: Brisk carotid upstroke, no jugular venous distention. Lungs: Clear to auscultation. No significant wheezing or rhonchi appreciated Heart: Regular rate and rhythm, S1-S2, no murmur or rub. Abdomen: Soft nontender, positive bowel sounds. Extremities: No edema, intact distal pulses bilateral Neuro: Alert, oritented, no focal deficits. Detailed neuro exam was not performed. ASSESSMENT CAD, multivessel, [employer] RCA, 99% LCx, status post PCI to LAD Not a candidate for CABG because of low FEV1 NSTEMI type I HFpEF exacerbation, mild COPD, not in exacerbation Chronic hypoxia Hypertension Dyslipidemia CKD creatinine 2.04 on admission, baseline around 1.6 Hypomagnesemia PAD with right carotid endarterectomy and stenting Acute kidney injury PLAN Continue current cardiac medications: Aspirin 81 mg, atorvastatin 40 mg at bedtime, Plavix 75 mg, Imdur 60 mg daily, Ranexa 1000 mg twice daily Continue Coreg 6.25 mg twice daily And Protonix 40 mg oral daily Monitor renal function. Monitor blood pressure At this time, no plan for cardiac catheterization/PCI as films have been reviewed from previous cardiac catheterization and blockages do not appear to be amenable to intervention. Is for medical management. Nurse practitioner note has been reviewed, I agree with documented findings and plan of care. Patient was seen and examined. Objective - Vital Signs Vital signs: Vital Signs Temp 97.0 F L 03/25/24 07:24 Pulse 72 03/25/24 08:45 Resp 20 03/25/24 08:45 BP 96/61 03/25/24 08:45 Pulse Ox 92 L 03/25/24 08:45 FiO2 Intake & Output 03/24/24 03/25/24 03/25/24 18:59 06:59 18:59 Intake Total 240 10 10 Output Total 200 700 Balance 40 -690 10 Weight 77.7 kg 77.7 kg Intake: IV 10 10 Invasive Line 2 10 10 Oral 240 Output: Urine 200 700 Other: Voiding Method Bedside Commode Bedside Commode - Labs CBC & Chem 7: 03/22/24 06:03 03/25/24 04:21 Labs: Abnormal Lab Results - Last 24 Hours (Table) 03/24/24 03/24/24 03/24/24 Range/Units 11:13 16:13 20:13 Potassium (3.5-5.1) mmol/L Carbon Dioxide (22-30) mmol/L BUN (7-17) mg/dL Creatinine (0.52-1.04) mg/dL Glucose (74-99) mg/dL POC Glucose (mg/dL) 208 H 176 H 158 H (70-110) mg/dL 03/25/24 03/25/24 Range/Units 04:21 06:05 Potassium 5.2 H (3.5-5.1) mmol/L Carbon Dioxide 20 L (22-30) mmol/L BUN 53 H (7-17) mg/dL Creatinine 2.40 H (0.52-1.04) mg/dL Glucose 178 H (74-99) mg/dL POC Glucose (mg/dL) 190 H (70-110) mg/dL
[2024-03-25 20:16] LABS: Glucose,Whole Blood 166 mg/dL (70-110)
[2024-03-26 06:07] LABS: Glucose,Whole Blood 200 mg/dL (70-110)
[2024-03-26 07:16] LABS: African American GFR (CKD) 23 (>60 ml/min/1.73 sqM); Anion Gap 10 mmol/L; Blood Urea Nitrogen 48 mg/dL (7-17); Calcium 9.3 mg/dL (8.4-10.2); Carbon Dioxide 22 mmol/L (22-30); Chloride 104 mmol/L (98-107); Glucose 191 mg/dL (74-99); Magnesium 1.6 mg/dL (1.6-2.3); Non-African American GFR(CKD) 20 (>60 ml/min/1.73 sqM); Potassium 5.4 mmol/L (3.5-5.1); Sodium 136 mmol/L (137-145)
[2024-03-26] MEDS: ACETAMINOPHEN TAB 325 MG TAB PO PRN (08:54)
--- NOTE | 2024-03-26 10:52 | P.PN ---
Subjective Patient is seen in follow-up for acute kidney injury on chronic kidney disease. Renal function stable. Blood pressure stable. Denies chest pain or shortness of breath. On nasal cannula. Admits to good urine output. Vital signs are stable. General: No acute distress. HEENT: Head exam is unremarkable. On nasal cannula. LUNGS: No audible rhonchi or wheezes. HEART: Rate and Rhythm are regular. ABDOMEN: No distention. EXTREMITITES: No edema. Objective - Vital Signs Vital signs: Vital Signs Temp 98.1 F 03/26/24 08:20 Pulse 76 03/26/24 08:20 Resp 20 03/26/24 08:20 BP 102/61 03/26/24 08:20 Pulse Ox 95 03/26/24 08:20 FiO2 Intake & Output 03/25/24 03/26/24 03/26/24 18:59 06:59 18:59 Intake Total 228 128 130 Output Total 625 Balance -397 128 130 Weight 77.7 kg 77 kg Intake: IV 20 10 10 Invasive Line 2 20 10 10 Oral 208 118 120 Output: Urine 625 Other: Voiding Method Bedside Commode Toilet Toilet Bedside Commode Bedside Commode # Voids 1 1 - Labs CBC & Chem 7: 03/22/24 06:03 03/26/24 06:28 Labs: Abnormal Lab Results - Last 24 Hours (Table) 03/25/24 03/25/24 03/25/24 Range/Units 11:36 16:15 20:15 Sodium (137-145) mmol/L Potassium (3.5-5.1) mmol/L BUN (7-17) mg/dL Creatinine (0.52-1.04) mg/dL Glucose (74-99) mg/dL POC Glucose (mg/dL) 197 H 206 H 166 H (70-110) mg/dL 03/26/24 03/26/24 Range/Units 06:05 06:28 Sodium 136 L (137-145) mmol/L Potassium 5.4 H (3.5-5.1) mmol/L BUN 48 H (7-17) mg/dL Creatinine 2.30 H (0.52-1.04) mg/dL Glucose 191 H (74-99) mg/dL POC Glucose (mg/dL) 200 H (70-110) mg/dL Assessment and Plan Plan: Assessment: 1. Acute kidney injury secondary to hemodynamic ATN. No proteinuria or hematuria on UA. Creatinine stable at 2.3. No hydronephrosis noted on kidney ultrasound. 2. Chronic kidney disease stage IIIb with baseline creatinine 1.4-1.6 secondary to nephrosclerosis. 3. Coronary artery disease. Patient not a candidate for CABG. 4. Advanced COPD. 5. Hypertension with chronic kidney disease. Most recent blood pressure 102/61. 6. Metabolic acidosis secondary to acute kidney injury. On oral bicarb. Better. 7. Diabetes mellitus. Plan: Farxiga, lisinopril and amlodipine have all been discontinued due to blood pressure being on the lower side. Blood glucose control. Avoid nephrotoxins. Continue to monitor renal function and urine output. Renal diet. Lokelma 10 g once today.
[2024-03-26] MEDS: SODIUM ZIRCONIUM CYCLOSILICATE 10 GM PACKET PO ONE (11:11)
[2024-03-26 11:28] LABS: Glucose,Whole Blood 165 mg/dL (70-110)
--- NOTE | 2024-03-26 12:50 | P.PN ---
Subjective Progress Note Date: 03/26/24 HISTORY OF PRESENTING ILLNESS 73-year-old female with past medical history of multivessel CAD, COPD, perip heral arterial disease, relation present to the hospital because of increased worsening substernal chest pressure and increased shortness of breath. In January patient had a presentation for NSTEMI for which she had a heart catheterization done which showed multivessel CAD. She was evaluated by CT surgery team who denied CABG because of high surgical risk from her advanced COPD, CKD and prior multiple TIAs and CVAs. On admission ECG shows normal sinus rhythm with no new ST or T wave changes. Sh e does have Q waves in inferior leads which are old Labs shows hemoglobin 13.3, WBC 6.8, sodium 143, potassium 4.1, creatinine 2.04, BUN 39, baseline creatinine around 1.6 Hypomagnesemia Troponin was elevated at 0.152, 0.157, 0.138, NT-proBNP 1929 Chest x-ray shows mild increase interstitial markings suggestive of pulmonary congestion March 21, 2024 Patient reports that her chest pain is better as compared to yesterday. She still appears very anxious. Her shortness of breath is mainly very improved since admission. BP 104/60, heart rate 83, sinus rhythm on telemetry, hemoglobin 12.8, BUN 52, creatinine 2.29 yesterday creatinine was 2.03. 03/22 Patient states that she did wake up experiencing chest pain. Blood pressure 117/69, heart rate 74, pulse ox 95% on room air. CBC within normal limits. BUN 55 creatinine 2.23. Potassium 5.0. Nephrology is following for acute kidney injury. 03/23 Apparently during the night, patient had episode of chest pain was started on nitroglycerin drip. Patient states the chest pain is better but now is having severe right hip pain and is unable to walk due to the pain. X-rays were ordered for this. Blood pressure 138/65, heart rate is in the 60s and 70s, pulse ox 93% on 3 L nasal cannula. Repeat blood work reveals BUN 52 creatinine 2.24. Nephrology is following for acute kidney injury 03/24 Patient's blood pressure is low today. She is feeling tired has a little bit of chest pain and after [place] pain is a #2. Yesterday and the day before we have made many changes in her medications that could affect her blood pressure. Heart rate is in the 60s and 70s. Renal function continues to worsen possibly due to hypotension. Patient is followed by nephrology. Amlodipine was discontinued this morning by nephrology. 03/25 Patient continues to have blood pressures that are very soft. Lisinopril held this morning. Patient is stating that she cannot sleep. She is complaining of joint pain especially in her hands and feet but all over. She is also complaining of what seems to be a gastric reflux for which Protonix will be adde d. Possibly chest pain is more so GERD versus cardiac in etiology. Farxiga and lisinopril discontinued by nephrology. 03/26 Patient is seen today in follow-up. Yesterday Protonix was started. She states she still has some chest pressure today a little bit. Her main concern is that her joints are hurting her severely. Blood pressure 102/61, heart rate 76, pulse ox 95% on 4 L. PHYSICAL EXAMINATION Vital signs reviewed. Head: Normocephalic. Eyes: Sclerae nonicteric. Neck: Brisk carotid upstroke, no jugular venous distention. Lungs: Clear to auscultation. No significant wheezing or rhonchi appreciated Heart: Regular rate and rhythm, S1-S2, no murmur or rub. Abdomen: Soft nontender, positive bowel sounds. Extremities: No edema, intact distal pulses bilateral Neuro: Alert, oritented, no focal deficits. Detailed neuro exam was not performed. ASSESSMENT CAD, multivessel, [employer] RCA, 99% LCx, status post PCI to LAD Not a candidate for CABG because of low FEV1 NSTEMI type I HFpEF exacerbation, mild COPD, not in exacerbation Chronic hypoxia Hypertension Dyslipidemia CKD creatinine 2.04 on admission, baseline around 1.6 Hypomagnesemia PAD with right carotid endarterectomy and stenting Acute kidney injury PLAN Continue current cardiac medications: Aspirin 81 mg, atorvastatin 40 mg at bedtime, Coreg 6.25 mg twice daily Plavix 75 mg, Imdur 60 mg daily, Ranexa 1000 mg twice daily Continue Protonix 40 mg oral daily Monitor renal function. Monitor blood pressure At this time, no plan for cardiac catheterization/PCI as films have been reviewed from previous cardiac catheterization and blockages do not appear to be amenable to intervention. Plan is for medical management. Patient is cleared for discharge from cardiology and may follow-up in the office with Dr. Hahn in 1 to 2 weeks. Nurse practitioner note has been reviewed, I agree with documented findings and plan of care. Patient was seen and examined. Objective - Vital Signs Vital signs: Vital Signs Temp 98.1 F 03/26/24 08:20 Pulse 76 03/26/24 08:20 Resp 20 03/26/24 08:20 BP 102/61 03/26/24 08:20 Pulse Ox 95 03/26/24 08:20 FiO2 Intake & Output 03/25/24 03/26/24 03/26/24 18:59 06:59 18:59 Intake Total 228 128 130 Output Total 625 Balance -397 128 130 Weight 77.7 kg 77 kg Intake: IV 20 10 10 Invasive Line 2 20 10 10 Oral 208 118 120 Output: Urine 625 Other: Voiding Method Bedside Commode Toilet Toilet Bedside Commode Bedside Commode # Voids 1 1 - Labs CBC & Chem 7: 03/22/24 06:03 03/26/24 06:28 Labs: Abnormal Lab Results - Last 24 Hours (Table) 03/25/24 03/25/24 03/25/24 Range/Units 11:36 16:15 20:15 Sodium (137-145) mmol/L Potassium (3.5-5.1) mmol/L BUN (7-17) mg/dL Creatinine (0.52-1.04) mg/dL Glucose (74-99) mg/dL POC Glucose (mg/dL) 197 H 206 H 166 H (70-110) mg/dL 03/26/24 03/26/24 Range/Units 06:05 06:28 Sodium 136 L (137-145) mmol/L Potassium 5.4 H (3.5-5.1) mmol/L BUN 48 H (7-17) mg/dL Creatinine 2.30 H (0.52-1.04) mg/dL Glucose 191 H (74-99) mg/dL POC Glucose (mg/dL) 200 H (70-110) mg/dL
--- NOTE | 2024-03-26 16:49 | P.PN ---
Progress Note - Text Progress Note Date: 03/26/24 patient is a 73-year-old lady with past medical history significant for hypertension, hyperlipidemia, diabetes mellitus type 2, carotid artery disease, chronic kidney disease, coronary disease who presented to the ER because of chest pain. Patient was seen in January of this year with similar complaints at which time patient had cardiac cath showing triple-vessel coronary artery disease patient was evaluated for CABG but later surgery decided that she should undergo PCI, patient underwent PCI to LAD in 01/12. Patient stated ever since her discharge she has been having on and off chest pain. Patient stated that she stopped taking her cholesterol medications for the last few weeks. Patient all right yesterday morning when she woke up with severe chest pain that was central location, nonradiating, no aggravating or relieving factors of the chest pain, denies any shortness of breath. Patient was complaining of nausea. There was no complaint palpitations. Because of the chest pain, patient went to her primary care doctor's office who told her to come to the ER. Initial lab work done in the ER showed WBC expanded, hemoglobin 13.3, platelet count 287, INR 0.9, sodium 143, potassium 4.1, BUN 39, creatinine 2.04 calcium 9.7, magnesium 1.3, troponin 0.152 EKG done in the ER showed heart rate of 76,, no ST segment elevation or depression seen, no T-wave inversions seen. Chest x-ray done in the ER showed cardiomegaly and mild pulmonary vascular congestion Patient admitted to internal medicine service 03/21. Patient seen and examined. Blood work this morning showed WBC 6.7, hemoglobin 8, platelet count 259, sodium 140, potassium 4.6, BUN 52, creatinine 2.29, glucose 171. Denies any chest pain. States she feels much better. 03/22/2024 Patient is evaluated today in follow up. Patient currently denies chest pain. Remains on IV heparin. Continues on oxygen via nasal cannula 2L. Potassium 5.0, BUN 55, creatinine 2.23. Blood glucose in the 300s. 03/23/2024 Patient is resting in bed today with no complaints of chest pain at this time however did have an episode of chest pressure overnight requiring nitro drip which has been turned off. Cardiology has adjusted medications further today patient continues on a combination of amlodipine, carvedilol, aspirin Plavix, Imdur, lisinopril and Ranexa. Patient states that she has not been able to sleep was on Seroquel in the past currently does not want it would recommend to give the trazadone at HS. She does complain of weakness in her bilateral extremities upper and lower since being started on the Lipitor back in January, which is why she had stopped taking it. Sodium 142, potassium 4.8, BUN of 52, creatinine of 2.24, magnesium 1.5. March 24, 2024: Laying in bed. Brother very tired. Blood pressure running low around 90 systolic. On 4 L nasal cannula. Sinus rhythm. Getting intermittent chest pain. Eating fair. Per cardiology for staged intervention. March 25: No further chest pain. Medications were further adjusted by cardiology. Did sit up in the chair for couple of hours. Patient does not want to go to rehab. Discussed with case picker. Given hyperkalemia in setting of kidney injury, will hold off PETER inhibitor for now. Eating some March 26: Patient doing much better today. Did walk in the hallway. No further chest pain. at the bedside. Seen by cardiology. [facility] lisinopril amlodipine have all been discontinued because of blood pressure on the lower side.. Probably home tomorrow. For elevated pressure at potassium given 1 dose of Lokelma and renal diet per nephrology Active Medications Acetaminophen (Acetaminophen Tab 325 Mg Tab) 650 mg PO Q6HR PRN PRN Reason: Fever and/ or Pain Last Admin: 03/26/24 08:54 Dose: 650 mg Hydrocodone Bitart/Acetaminophen (Hydrocodone/Apap 5-325mg 1 Each Tab) 1 each PO Q6HR PRN PRN Reason: Pain Last Admin: 03/26/24 11:08 Dose: 1 each Albuterol Sulfate (Albuterol Hfa Inhaler) 2 puff INHALATION RT-Q4H PRN PRN Reason: Dyspnea Last Admin: 03/24/24 20:19 Dose: 2 puff Aspirin (Aspirin 81 Mg) 81 mg PO DAILY JOSEPH Last Admin: 03/26/24 08:39 Dose: 81 mg Atorvastatin Calcium (Atorvastatin 40 Mg Tab) 40 mg PO HS JOSEPH Last Admin: 03/25/24 21:18 Dose: 40 mg Budesonide/Formoterol Fumarate (Symbicort 80-4.5 Mcg Inhaler) 2 puff INHALATION RT-BID [facility] Last Admin: 03/26/24 09:40 Dose: 2 puff Carvedilol (Carvedilol 6.25 Mg Tab) 6.25 mg PO BID-W/MEALS [facility] Last Admin: 03/26/24 06:18 Dose: 6.25 mg Clopidogrel Bisulfate (Clopidogrel 75 Mg Tab) 75 mg PO DAILY [facility] Last Admin: 03/26/24 08:39 Dose: 75 mg Dextrose/Water (Dextrose 50% Syringe 50 Ml) 50 ml IVP PER PROTOCOL PRN; Protocol PRN Reason: Hypoglycemia Dextrose/Water (Dextrose 50% Syringe 50 Ml) 25 ml IVP PER PROTOCOL PRN; Protocol PRN Reason: Hypoglycemia Heparin Sodium (Porcine) (Heparin Sodium,Porcine 5,000 Unit/Ml 1 Ml Vial) 5,000 unit SQ Q12HR [facility] Last Admin: 03/26/24 08:39 Dose: 5,000 unit Insulin Aspart (Insulin Aspart (Novolog) 100 Unit/Ml Vial) 0 unit SQ ACHS [facility]; Protocol Last Admin: 03/26/24 11:22 Dose: 3 unit Insulin Aspart (Insulin Aspart (Novolog) 100 Unit/Ml Vial) 6 unit SQ AC-TID [facility] Last Admin: 03/26/24 11:22 Dose: 6 unit Insulin Detemir (Insulin Detemir (Levemir) 100 Unit/Ml Syr) 10 unit SQ DAILY@0700 [facility] Last Admin: 03/26/24 06:18 Dose: 10 unit Isosorbide Mononitrate (Isosorbide Mononitrate Er 60 Mg Tab.Er.24h) 60 mg PO DAILY [facility] Last Admin: 03/26/24 08:39 Dose: 60 mg Miscellaneous Information (Magnesium Replacement Protocol 1 Each Misc) 1 each MISCELLANE DAILY PRN; Protocol PRN Reason: Per Protocol Naloxone HCl (Naloxone 0.4 Mg/Ml 1 Ml Vial) 0.2 mg IV Q2M PRN PRN Reason: Opioid Reversal Ondansetron HCl (Ondansetron 4 Mg/2 Ml Vial) 4 mg IVP Q8HR PRN PRN Reason: Nausea And Vomiting Pantoprazole Sodium (Pantoprazole 40 Mg Tablet) 40 mg PO AC-BRKFST [facility] Last Admin: 03/26/24 06:18 Dose: 40 mg Ranolazine (Ranolazine 500 Mg Tab.Er.12h) 1,000 mg PO Q12HR [facility] Last Admin: 03/26/24 08:39 Dose: 1,000 mg Sodium Bicarbonate (Sodium Bicarbonate Tab 650 Mg Tab) 650 mg PO BID [facility] Last Admin: 03/26/24 08:40 Dose: 650 mg Trazodone HCl (Trazodone Hcl 50 Mg Tab) 25 mg PO HS PRN PRN Reason: Insomnia Last Admin: 03/25/24 21:18 Dose: 25 mg On examination: VITAL SIGNS: 97.6, 86, 20, 103 x 66, 95% 4 L GENERAL APPEARANCE: BMI 28.4, laying in bed, appears better HEENT: Normal external appearance of nose and ear. Oral cavity normal EYES: Pupils equal. Conjunctiva normal. NECK: JVD not raised. Mass not palpable. RESPIRATORY: Respiratory effort normal. Lungs clear to auscultation. CARDIOVASCULAR: First and second sounds normal. No edema. ABDOMEN: Soft. Liver and spleen not palpable. No tenderness. No mass palpable. PSYCHIATRY: Questionable very tired appearing . INVESTIGATIONS, reviewed in the clinical context: March 26: Potassium 5.4 BUN 48 creatinine 2.30 March 25: Potassium 5.2 BUN 53 creatinine 2.4 March 24: Sodium 139 potassium 4.8 BUN 53 creatinine 2.40 March 19: Creatinine 2.04 2D echo: EF 55 to 60% Renal ultrasound: No hydronephrosis. Multiple nonshadowing parenchyma calcifications. Assessment and plan -NSTEMI -Postinfarct angina after coronary intervention: Better Imdur. Ranexa Patient for staged intervention Acute on chronic kidney injury secondary to ATN from hemodynamic mismatch. Renal ultrasound showed no hydronephrosis. -Chronic kidney disease stage IIIb with baseline creatinine of 1.4-1.6 secondary to nephrosclerosis Hypomagnesemia Metabolic acidosis, due to acute kidney injury. Improved Received bicarbonate -CAD including 80% mid LAD, 99% proximal circumflex and 100% subtotally occluded RCA stenosis status post PCI to LAD in 01/12 Cardiology following -Chronic oxygen dependent COPD. on 2L prn outpatient.- Diabetes mellitus type 2, chronically on insulin Levemir. Follow Accu-Cheks Hypomagnesemia Follow labs -Hyperkalemia, in setting of CKD Lokelma. Renal diet. -Essential hypertension , Coreg, Imdur -Hyperlipidemia Lipitor -COPD in previous smoker Symbicort. Ventolin HFA as needed -Disposition, patient keen to go home Full Code Patient off lisinopril. Off amlodipine. Received Lokelma. Check labs in the morning. Hopefully home tomorrow.
[2024-03-26 16:56] LABS: Glucose,Whole Blood 123 mg/dL (70-110)
[2024-03-26 20:24] LABS: Glucose,Whole Blood 131 mg/dL (70-110)
[2024-03-27 06:11] LABS: Glucose,Whole Blood 159 mg/dL (70-110)
[2024-03-27 07:56] LABS: African American GFR (CKD) 26 (>60 ml/min/1.73 sqM); Anion Gap 12 mmol/L; Blood Urea Nitrogen 44 mg/dL (7-17); Calcium 9.7 mg/dL (8.4-10.2); Carbon Dioxide 25 mmol/L (22-30); Chloride 102 mmol/L (98-107); Glucose 170 mg/dL (74-99); Magnesium 1.5 mg/dL (1.6-2.3); Non-African American GFR(CKD) 22 (>60 ml/min/1.73 sqM); Potassium 5.3 mmol/L (3.5-5.1); Sodium 139 mmol/L (137-145)
[2024-03-27] MEDS: ENOXAPARIN 40 MG/0.4 ML SYRINGE SQ SCH (08:10)
--- NOTE | 2024-03-27 08:43 | P.PN ---
Subjective Progress Note Date: 03/27/24 Patient was seen and evaluated this morning. She has been experiencing abdominal discomfort and she has not been having a bowel movement for the last several days. She is constipated at this point. No anginal chest pain or chest discomfort and no shortness of breath or dizziness or lightheadedness or any feeling of heart racing or fluttering. Hemodynamically she is stable. From the cardiovascular standpoint of view we will continue the current medical regimen. I would consider a conservative medical approach as far as if she is asymptomatic in terms of chest pain or chest discomfort. The physical examination is remarkable for stable vital signs with regular rate and rhythm and soft systolic murmur and clear breathing sounds bilaterally and no edema was noted in the lower extremities Assessment Coronary artery disease with multivessel CAD Chronic kidney disease Hypertension Dyslipidemia Multiple comorbid conditions Plan Continue the current medical regimen Conservative medical approach from the cardiovascular standpoint of view Consider PCI of the LCx and RCA if she starts becoming symptomatic Follow-up with the patient Objective - Vital Signs Vital signs: Vital Signs Temp 97.6 F 03/27/24 08:07 Pulse 70 03/27/24 08:07 Resp 20 03/27/24 08:07 BP 120/73 03/27/24 08:07 Pulse Ox 94 L 03/27/24 08:26 FiO2 Intake & Output 03/26/24 03/27/24 03/27/24 18:59 06:59 18:59 Intake Total 140 118 Output Total 350 200 Balance -210 -82 Weight 75.7 kg Intake: IV 20 Invasive Line 2 20 Oral 120 118 Output: Urine 350 200 Other: Voiding Method Toilet Toilet Bedside Commode # Voids 0 1 # Bowel Movements 0 - Labs CBC & Chem 7: 03/22/24 06:03 03/27/24 06:33 Labs: Abnormal Lab Results - Last 24 Hours (Table) 03/26/24 03/26/24 03/26/24 Range/Units 11:21 16:52 20:24 Potassium (3.5-5.1) mmol/L BUN (7-17) mg/dL Creatinine (0.52-1.04) mg/dL Glucose (74-99) mg/dL POC Glucose (mg/dL) 165 H 123 H 131 H (70-110) mg/dL Magnesium (1.6-2.3) mg/dL 03/27/24 03/27/24 Range/Units 06:10 06:33 Potassium 5.3 H (3.5-5.1) mmol/L BUN 44 H (7-17) mg/dL Creatinine 2.13 H (0.52-1.04) mg/dL Glucose 170 H (74-99) mg/dL POC Glucose (mg/dL) 159 H (70-110) mg/dL Magnesium 1.5 L (1.6-2.3) mg/dL
[2024-03-27] MEDS: LACTULOSE 20 GM/30 ML CUP PO ONE (09:34)
[2024-03-27] MEDS ORDERED: LACTULOSE 20 GM/30 ML CUP PO PRN (10:14)
--- NOTE | 2024-03-27 10:15 | P.PN ---
Subjective Patient is seen in follow-up for acute kidney injury on chronic kidney disease. Renal function better. Blood pressure stable. Denies chest pain or shortness of breath. On nasal cannula. Admits to good urine output. Admits to constipation. Vital signs are stable. General: No acute distress. HEENT: Head exam is unremarkable. On nasal cannula. LUNGS: No audible rhonchi or wheezes. HEART: Rate and Rhythm are regular. ABDOMEN: No distention. EXTREMITITES: No edema. Objective - Vital Signs Vital signs: Vital Signs Temp 97.6 F 03/27/24 08:07 Pulse 70 03/27/24 09:50 Resp 19 03/27/24 09:50 BP 120/73 03/27/24 08:07 Pulse Ox 94 L 03/27/24 08:26 FiO2 Intake & Output 03/26/24 03/27/24 03/27/24 18:59 06:59 18:59 Intake Total 140 118 Output Total 350 200 Balance -210 -82 Weight 75.7 kg Intake: IV 20 Invasive Line 2 20 Oral 120 118 Output: Urine 350 200 Other: Voiding Method Toilet Toilet Toilet Bedside Commode # Voids 0 1 # Bowel Movements 0 - Labs CBC & Chem 7: 03/22/24 06:03 03/27/24 06:33 Labs: Abnormal Lab Results - Last 24 Hours (Table) 03/26/24 03/26/24 03/26/24 Range/Units 11:21 16:52 20:24 Potassium (3.5-5.1) mmol/L BUN (7-17) mg/dL Creatinine (0.52-1.04) mg/dL Glucose (74-99) mg/dL POC Glucose (mg/dL) 165 H 123 H 131 H (70-110) mg/dL Magnesium (1.6-2.3) mg/dL 03/27/24 03/27/24 Range/Units 06:10 06:33 Potassium 5.3 H (3.5-5.1) mmol/L BUN 44 H (7-17) mg/dL Creatinine 2.13 H (0.52-1.04) mg/dL Glucose 170 H (74-99) mg/dL POC Glucose (mg/dL) 159 H (70-110) mg/dL Magnesium 1.5 L (1.6-2.3) mg/dL Assessment and Plan Plan: Assessment: 1. Acute kidney injury secondary to hemodynamic ATN. No proteinuria or hematuria on UA. Creatinine improved to 2.13. No hydronephrosis noted on kidney ultrasound. 2. Chronic kidney disease stage IIIb with baseline creatinine 1.4-1.6 secondary to nephrosclerosis. 3. Coronary artery disease. Patient not a candidate for CABG. 4. Advanced COPD. 5. Hypertension with chronic kidney disease. Blood pressure was running on the lower end. Better now. 6. Metabolic acidosis secondary to acute kidney injury. On oral bicarb. Better. 7. Diabetes mellitus. 8. Constipation. Plan: Farxiga, lisinopril and amlodipine have all been discontinued due to blood pressure being on the lower side. Add lactulose as needed for constipation. Replace magnesium. Blood glucose control. Avoid nephrotoxins. Continue to monitor renal function and urine output. Renal diet.
[2024-03-27 11:46] LABS: Glucose,Whole Blood 177 mg/dL (70-110)
[2024-03-27] MEDS: MAGNESIUM SULFATE-D5W PMX 1 GM in DEXTROSE/WATER 1 100ML.BAG IVPB SCH (12:41)
[2024-03-27] MEDS: PSYLLIUM HUSK 100% 6 GM PACKET PO SCH (12:42)
[2024-03-27 16:51] LABS: Glucose,Whole Blood 211 mg/dL (70-110)
[2024-03-27] MEDS: ONDANSETRON 4 MG/2 ML VIAL IVP PRN (17:48)
--- NOTE | 2024-03-27 18:06 | P.PN ---
Progress Note - Text Progress Note Date: 03/27/24 patient is a 73-year-old lady with past medical history significant for hypertension, hyperlipidemia, diabetes mellitus type 2, carotid artery disease, chronic kidney disease, coronary disease who presented to the ER because of chest pain. Patient was seen in January of this year with similar complaints at which time patient had cardiac cath showing triple-vessel coronary artery disease patient was evaluated for CABG but later surgery decided that she should undergo PCI, patient underwent PCI to LAD in 01/12. Patient stated ever since her discharge she has been having on and off chest pain. Patient stated that she stopped taking her cholesterol medications for the last few weeks. Patient all right yesterday morning when she woke up with severe chest pain that was central location, nonradiating, no aggravating or relieving factors of the chest pain, denies any shortness of breath. Patient was complaining of nausea. There was no complaint palpitations. Because of the chest pain, patient went to her primary care doctor's office who told her to come to the ER. Initial lab work done in the ER showed WBC expanded, hemoglobin 13.3, platelet count 287, INR 0.9, sodium 143, potassium 4.1, BUN 39, creatinine 2.04 calcium 9.7, magnesium 1.3, troponin 0.152 EKG done in the ER showed heart rate of 76,, no ST segment elevation or depression seen, no T-wave inversions seen. Chest x-ray done in the ER showed cardiomegaly and mild pulmonary vascular congestion Patient admitted to internal medicine service 03/21. Patient seen and examined. Blood work this morning showed WBC 6.7, hemoglobin 8, platelet count 259, sodium 140, potassium 4.6, BUN 52, creatinine 2.29, glucose 171. Denies any chest pain. States she feels much better. 03/22/2024 Patient is evaluated today in follow up. Patient currently denies chest pain. Remains on IV heparin. Continues on oxygen via nasal cannula 2L. Potassium 5.0, BUN 55, creatinine 2.23. Blood glucose in the 300s. 03/23/2024 Patient is resting in bed today with no complaints of chest pain at this time however did have an episode of chest pressure overnight requiring nitro drip which has been turned off. Cardiology has adjusted medications further today patient continues on a combination of amlodipine, carvedilol, aspirin Plavix, Imdur, lisinopril and Ranexa. Patient states that she has not been able to sleep was on Seroquel in the past currently does not want it would recommend to give the trazadone at HS. She does complain of weakness in her bilateral extremities upper and lower since being started on the Lipitor back in January, which is why she had stopped taking it. Sodium 142, potassium 4.8, BUN of 52, creatinine of 2.24, magnesium 1.5. March 24, 2024: Laying in bed. Brother very tired. Blood pressure running low around 90 systolic. On 4 L nasal cannula. Sinus rhythm. Getting intermittent chest pain. Eating fair. Per cardiology for staged intervention. March 25: No further chest pain. Medications were further adjusted by cardiology. Did sit up in the chair for couple of hours. Patient does not want to go to rehab. Discussed with test case developer. Given hyperkalemia in setting of kidney injury, will hold off PETER inhibitor for now. Eating some March 26: Patient doing much better today. Did walk in the hallway. No further chest pain. at the bedside. Seen by cardiology. [facility] lisinopril amlodipine have all been discontinued because of blood pressure on the lower side.. Probably home tomorrow. For elevated pressure at potassium given 1 dose of Lokelma and renal diet per nephrology March 27: This morning patient just feeling tired some nausea. Not had a bowel movement. Was given lactulose. Later she started having bowel movements. Discharge been held for that purpose. No further intervention per cardiology. Active Medications Acetaminophen (Acetaminophen Tab 325 Mg Tab) 650 mg PO Q6HR PRN PRN Reason: Fever and/ or Pain Last Admin: 03/26/24 08:54 Dose: 650 mg Hydrocodone Bitart/Acetaminophen (Hydrocodone/Apap 5-325mg 1 Each Tab) 1 each PO Q6HR PRN PRN Reason: Pain Last Admin: 03/26/24 11:08 Dose: 1 each Albuterol Sulfate (Albuterol Hfa Inhaler) 2 puff INHALATION RT-Q4H PRN PRN Reason: Dyspnea Last Admin: 03/24/24 20:19 Dose: 2 puff Aspirin (Aspirin 81 Mg) 81 mg PO DAILY [facility] Last Admin: 03/27/24 08:10 Dose: 81 mg Atorvastatin Calcium (Atorvastatin 40 Mg Tab) 40 mg PO HS [facility] Last Admin: 03/26/24 20:53 Dose: 40 mg Budesonide/Formoterol Fumarate (Symbicort 80-4.5 Mcg Inhaler) 2 puff INHALATION RT-BID [facility] Last Admin: 03/27/24 08:25 Dose: 2 puff Carvedilol (Carvedilol 6.25 Mg Tab) 6.25 mg PO BID-W/MEALS [facility] Last Admin: 03/27/24 17:45 Dose: 6.25 mg Clopidogrel Bisulfate (Clopidogrel 75 Mg Tab) 75 mg PO DAILY [facility] Last Admin: 03/27/24 08:10 Dose: 75 mg Dextrose/Water (Dextrose 50% Syringe 50 Ml) 50 ml IVP PER PROTOCOL PRN; Protocol PRN Reason: Hypoglycemia Dextrose/Water (Dextrose 50% Syringe 50 Ml) 25 ml IVP PER PROTOCOL PRN; Protocol PRN Reason: Hypoglycemia Enoxaparin Sodium (Enoxaparin 30 Mg/0.3 Ml Syringe) 30 mg SQ DAILY [facility] Insulin Aspart (Insulin Aspart (Novolog) 100 Unit/Ml Vial) 0 unit SQ ACHS [facility]; Protocol Last Admin: 03/27/24 17:45 Dose: 6 unit Insulin Aspart (Insulin Aspart (Novolog) 100 Unit/Ml Vial) 6 unit SQ AC-TID [facility] Last Admin: 03/27/24 17:45 Dose: 6 unit Insulin Detemir (Insulin Detemir (Levemir) 100 Unit/Ml Syr) 10 unit SQ DAILY@0 700 [facility] Last Admin: 03/27/24 06:36 Dose: 10 unit Isosorbide Mononitrate (Isosorbide Mononitrate Er 60 Mg Tab.Er.24h) 60 mg PO DAILY [facility] Last Admin: 03/27/24 08:10 Dose: 60 mg Lactulose (Lactulose 20 Gm/30 Ml Cup) 10 gm PO TID PRN PRN Reason: Constipation Stop: 03/30/24 10:13 Miscellaneous Information (Magnesium Replacement Protocol 1 Each Misc) 1 each MISCELLANE DAILY PRN; Protocol PRN Reason: Per Protocol Naloxone HCl (Naloxone 0.4 Mg/Ml 1 Ml Vial) 0.2 mg IV Q2M PRN PRN Reason: Opioid Reversal Ondansetron HCl (Ondansetron 4 Mg/2 Ml Vial) 4 mg IVP Q8HR PRN PRN Reason: Nausea And Vomiting Last Admin: 03/27/24 17:48 Dose: 4 mg Pantoprazole Sodium (Pantoprazole 40 Mg Tablet) 40 mg PO AC-BRKFST [facility] Last Admin: 03/27/24 06:36 Dose: 40 mg Psyllium Hydrophilic Mucilloid (Psyllium Husk 100% 6 Gm Packet) 6 gm PO DAILY [facility] Last Admin: 03/27/24 12:42 Dose: 6 gm Ranolazine (Ranolazine 500 Mg Tab.Er.12h) 1,000 mg PO Q12HR [facility] Last Admin: 03/27/24 08:09 Dose: 1,000 mg Sodium Bicarbonate (Sodium Bicarbonate Tab 650 Mg Tab) 650 mg PO BID [facility] Last Admin: 03/27/24 08:09 Dose: 650 mg Trazodone HCl (Trazodone Hcl 50 Mg Tab) 25 mg PO HS PRN PRN Reason: Insomnia Last Admin: 03/26/24 23:02 Dose: 25 mg On examination: VITAL SIGNS: 97.6, 89, 20, 139/81, 98% on 4 L GENERAL APPEARANCE: BMI 28.4, laying in bed, a bit tired HEENT: Normal external appearance of nose and ear. Oral cavity normal EYES: Pupils equal. Conjunctiva normal. NECK: JVD not raised. Mass not palpable. RESPIRATORY: Respiratory effort normal. Lungs clear to auscultation. CARDIOVASCULAR: First and second sounds normal. No edema. ABDOMEN: Soft. Liver and spleen not palpable. No tenderness. No mass palpable. PSYCHIATRY: Questionable very tired appearing .INVESTIGATIONS, reviewed in the clinical context: March 27: Potassium 5.3 BUN 44 creatinine 2.13 March 26: Potassium 5.4 BUN 48 creatinine 2.30 March 25: Potassium 5.2 BUN 53 creatinine 2.4 March 24: Sodium 139 potassium 4.8 BUN 53 creatinine 2.40 March 19: Creatinine 2.04 2D echo: EF 55 to 60% Renal ultrasound: No hydronephrosis. Multiple nonshadowing parenchyma calcifications. Assessment and plan -NSTEMI -Postinfarct angina after coronary intervention: Better Imdur. Ranexa for staged intervention per cardiology Acute on chronic kidney injury secondary to ATN from hemodynamic mismatch. Renal ultrasound showed no hydronephrosis. -Acute constipation from decreased activity Given lactulose today. Not having bowel movements. Also on Metamucil -Chronic kidney disease stage IIIb with baseline creatinine of 1.4-1.6 secondary to nephrosclerosis Hypomagnesemia Metabolic acidosis, due to acute kidney injury. Improved Received bicarbonate -CAD including 80% mid LAD, 99% proximal circumflex and 100% subtotally occluded RCA stenosis status post PCI to LAD in 01/12 Cardiology following -Chronic oxygen dependent COPD. on 2L prn outpatient.- Diabetes mellitus type 2, chronically on insulin Levemir. Follow Accu-Cheks Hypomagnesemia Follow labs -Hyperkalemia, in setting of CKD Lokelma. Renal diet. -Essential hypertension , Coreg, Imdur -Hyperlipidemia Lipitor -COPD in previous smoker Symbicort. Ventolin HFA as needed -Disposition, patient keen to go home Full Code Responding to lactulose. Continue other medication treatment plan. Increase activity
[2024-03-27 20:34] LABS: Glucose,Whole Blood 125 mg/dL (70-110)
[2024-03-27] MEDS: MAGNESIUM OXIDE 400 MG TAB PO SCH (21:36)
[2024-03-28 06:18] LABS: Glucose,Whole Blood 201 mg/dL (70-110)
--- NOTE | 2024-03-28 08:12 | P.PN ---
Subjective Progress Note Date: 03/28/24 Patient was seen and evaluated this morning. She has been experiencing abdominal discomfort and she has not been having a bowel movement for the last several days. She is constipated at this point. No anginal chest pain or chest discomfort and no shortness of breath or dizziness or lightheadedness or any feeling of heart racing or fluttering. Hemodynamically she is stable. From the cardiovascular standpoint of view we will continue the current medical regimen. I would consider a conservative medical approach as far as if she is asymptomatic in terms of chest pain or chest discomfort. The physical examination is remarkable for stable vital signs with regular rate and rhythm and soft systolic murmur and clear breathing sounds bilaterally and no edema was noted in the lower extremities March 28, 2024 She was seen and evaluated this morning she is asymptomatic in terms of chest pain or chest discomfort or shortness of breath and she is hemodynamically stable. She feels that she can be discharged home. She has been up and around with no cardiovascular symptoms. Examination is remarkable for regular rhythm with a soft systolic murmur and clear breathing sounds bilaterally and no edema was noted. Assessment Coronary artery disease with multivessel CAD Chronic kidney disease Hypertension Dyslipidemia Multiple comorbid conditions Plan Continue the current medical regimen Conservative medical approach from the cardiovascular standpoint of view Consider PCI of the LCx and RCA if she starts becoming symptomatic She has been asymptomatic for the last 24 hours She potentially can be discharged home today Objective - Vital Signs Vital signs: Vital Signs Temp 98.1 F 03/28/24 04:00 Pulse 81 03/28/24 04:00 Resp 22 03/28/24 04:00 BP 104/64 03/28/24 04:00 Pulse Ox 94 L 03/28/24 04:00 FiO2 Intake & Output 03/27/24 03/28/24 03/28/24 18:59 06:59 18:59 Intake Total 128 Balance 128 Weight 74.9 kg Intake: IV 10 Invasive Line 3 10 Oral 118 Other: Voiding Method Toilet Toilet # Voids 1 # Bowel Movements 1 - Labs CBC & Chem 7: 03/22/24 06:03 03/27/24 06:33 Labs: Abnormal Lab Results - Last 24 Hours (Table) 03/27/24 03/27/24 03/27/24 Range/Units 11:44 16:49 20:16 POC Glucose (mg/dL) 177 H 211 H 125 H (70-110) mg/dL 03/28/24 Range/Units 05:54 POC Glucose (mg/dL) 201 H (70-110) mg/dL
[2024-03-28] MEDS: ENOXAPARIN 30 MG/0.3 ML SYRINGE SQ SCH (08:29)
[2024-03-28] MEDS: SODIUM BICARBONATE TAB 650 MG TAB PO SCH (08:29)
[2024-03-28 08:32] LABS: African American GFR (CKD) 26 (>60 ml/min/1.73 sqM); Anion Gap 10 mmol/L; Blood Urea Nitrogen 40 mg/dL (7-17); Calcium 9.8 mg/dL (8.4-10.2); Carbon Dioxide 25 mmol/L (22-30); Chloride 101 mmol/L (98-107); Glucose 189 mg/dL (74-99); Magnesium 1.9 mg/dL (1.6-2.3); Non-African American GFR(CKD) 22 (>60 ml/min/1.73 sqM); Sodium 136 mmol/L (137-145)
--- NOTE | 2024-03-28 10:16 | P.PN ---
Subjective Patient is seen in follow-up for acute kidney injury on chronic kidney disease. Renal function stable. Blood pressure stable. Denies chest pain or shortness of breath. On nasal cannula. Admits to good urine output. Had loose bowel movements yesterday from laxatives but now resolved. Vital signs are stable. General: No acute distress. HEENT: Head exam is unremarkable. On nasal cannula. LUNGS: No audible rhonchi or wheezes. HEART: Rate and Rhythm are regular. ABDOMEN: No distention. EXTREMITITES: No edema. Objective - Vital Signs Vital signs: Vital Signs Temp 98.1 F 03/28/24 04:00 Pulse 81 03/28/24 04:00 Resp 19 03/28/24 08:25 BP 117/70 03/28/24 08:25 Pulse Ox 96 03/28/24 08:48 FiO2 Intake & Output 03/27/24 03/28/24 03/28/24 18:59 06:59 18:59 Intake Total 128 Balance 128 Weight 74.9 kg Intake: IV 10 Invasive Line 3 10 Oral 118 Other: Voiding Method Toilet Toilet # Voids 1 # Bowel Movements 1 - Labs CBC & Chem 7: 03/22/24 06:03 03/28/24 07:36 Labs: Abnormal Lab Results - Last 24 Hours (Table) 03/27/24 03/27/24 03/27/24 Range/Units 11:44 16:49 20:16 Sodium (137-145) mmol/L BUN (7-17) mg/dL Creatinine (0.52-1.04) mg/dL Glucose (74-99) mg/dL POC Glucose (mg/dL) 177 H 211 H 125 H (70-110) mg/dL 03/28/24 03/28/24 Range/Units 05:54 07:36 Sodium 136 L (137-145) mmol/L BUN 40 H (7-17) mg/dL Creatinine 2.12 H (0.52-1.04) mg/dL Glucose 189 H (74-99) mg/dL POC Glucose (mg/dL) 201 H (70-110) mg/dL Assessment and Plan Plan: Assessment: 1. Acute kidney injury secondary to hemodynamic ATN. No proteinuria or hematuria on UA. Creatinine stable at 2.12 today. No hydronephrosis noted on kidney ultrasound. 2. Chronic kidney disease stage IIIb with baseline creatinine 1.4-1.6 secondary to nephrosclerosis. 3. Coronary artery disease. Patient not a candidate for CABG. 4. Advanced COPD. 5. Hypertension with chronic kidney disease. Blood pressure was running on the lower end. Better now. 6. Metabolic acidosis secondary to acute kidney injury. On oral bicarb. Better. 7. Diabetes mellitus. 8. Constipation. Resolved. Plan: Farxiga, lisinopril and amlodipine have all been discontinued due to blood pressure being on the lower side. Blood glucose control. Avoid nephrotoxins. Continue to monitor renal function and urine output. Renal diet.
[2024-03-28 10:31] LABS: Glucose,Whole Blood 151 mg/dL (70-110)
[2024-03-28 11:53] LABS: Glucose,Whole Blood 179 mg/dL (70-110)
[2024-03-28] MEDS: SCOPOLAMINE 1 MG/72 HR PATCH TRANSDERM STA (15:47)
[2024-03-28 16:41] LABS: Glucose,Whole Blood 176 mg/dL (70-110)
[2024-03-28 20:47] LABS: Glucose,Whole Blood 102 mg/dL (70-110)
--- NOTE | 2024-03-28 20:56 | P.PN ---
Progress Note - Text Progress Note Date: 03/28/24 patient is a 73-year-old lady with past medical history significant for hypertension, hyperlipidemia, diabetes mellitus type 2, carotid artery disease, chronic kidney disease, coronary disease who presented to the ER because of chest pain. Patient was seen in January of this year with similar complaints at which time patient had cardiac cath showing triple-vessel coronary artery disease patient was evaluated for CABG but later surgery decided that she should undergo PCI, patient underwent PCI to LAD in 01/12. Patient stated ever since her discharge she has been having on and off chest pain. Patient stated that she stopped taking her cholesterol medications for the last few weeks. Patient all right yesterday morning when she woke up with severe chest pain that was central location, nonradiating, no aggravating or relieving factors of the chest pain, denies any shortness of breath. Patient was complaining of nausea. There was no complaint palpitations. Because of the chest pain, patient went to her primary care doctor's office who told her to come to the ER. Initial lab work done in the ER showed WBC expanded, hemoglobin 13.3, platelet count 287, INR 0.9, sodium 143, potassium 4.1, BUN 39, creatinine 2.04 calcium 9.7, magnesium 1.3, troponin 0.152 EKG done in the ER showed heart rate of 76,, no ST segment elevation or depression seen, no T-wave inversions seen. Chest x-ray done in the ER showed cardiomegaly and mild pulmonary vascular congestion Patient admitted to internal medicine service 03/21. Patient seen and examined. Blood work this morning showed WBC 6.7, hemoglobin 8, platelet count 259, sodium 140, potassium 4.6, BUN 52, creatinine 2.29, glucose 171. Denies any chest pain. States she feels much better. 03/22/2024 Patient is evaluated today in follow up. Patient currently denies chest pain. Remains on IV heparin. Continues on oxygen via nasal cannula 2L. Potassium 5.0, BUN 55, creatinine 2.23. Blood glucose in the 300s. 03/23/2024 Patient is resting in bed today with no complaints of chest pain at this time however did have an episode of chest pressure overnight requiring nitro drip which has been turned off. Cardiology has adjusted medications further today patient continues on a combination of amlodipine, carvedilol, aspirin Plavix, Imdur, lisinopril and Ranexa. Patient states that she has not been able to sleep was on Seroquel in the past currently does not want it would recommend to give the trazadone at HS. She does complain of weakness in her bilateral extremities upper and lower since being started on the Lipitor back in January, which is why she had stopped taking it. Sodium 142, potassium 4.8, BUN of 52, creatinine of 2.24, magnesium 1.5. March 24, 2024: Laying in bed. Brother very tired. Blood pressure running low around 90 systolic. On 4 L nasal cannula. Sinus rhythm. Getting intermittent chest pain. Eating fair. Per cardiology for staged intervention. March 25: No further chest pain. Medications were further adjusted by cardiology. Did sit up in the chair for couple of hours. Patient does not want to go to rehab. Discussed with casey saw operator. Given hyperkalemia in setting of kidney injury, will hold off PETER inhibitor for now. Eating some March 26: Patient doing much better today. Did walk in the hallway. No further chest pain. at the bedside. Seen by cardiology. [facility] lisinopril amlodipine have all been discontinued because of blood pressure on the lower side.. Probably home tomorrow. For elevated pressure at potassium given 1 dose of Lokelma and renal diet per nephrology March 27: This morning patient just feeling tired some nausea. Not had a bowel movement. Was given lactulose. Later she started having bowel movements. Discharge been held for that purpose. No further intervention per cardiology. March 28: Tired. Does not want to go to rehab. Patient was desaturating down to 86%. Hence home oxygen was being arranged. Patient unable to afford the payment for the first month. Social work involved for the same. Encouraged to eat sit up in a chair. Order chest x-ray Active Medications Acetaminophen (Acetaminophen Tab 325 Mg Tab) 650 mg PO Q6HR PRN PRN Reason: Fever and/ or Pain Last Admin: 03/26/24 08:54 Dose: 650 mg Hydrocodone Bitart/Acetaminophen (Hydrocodone/Apap 5-325mg 1 Each Tab) 1 each PO Q6HR PRN PRN Reason: Pain Last Admin: 03/26/24 11:08 Dose: 1 each Albuterol Sulfate (Albuterol Hfa Inhaler) 2 puff INHALATION RT-Q4H PRN PRN Reason: Dyspnea Last Admin: 03/28/24 11:25 Dose: 2 puff Aspirin (Aspirin 81 Mg) 81 mg PO DAILY [facility] Last Admin: 03/28/24 08:29 Dose: 81 mg Atorvastatin Calcium (Atorvastatin 40 Mg Tab) 40 mg PO HS [facility] Last Admin: 03/27/24 21:37 Dose: 40 mg Budesonide/Formoterol Fumarate (Symbicort 80-4.5 Mcg Inhaler) 2 puff INHALATION RT-BID [facility] Last Admin: 03/28/24 08:47 Dose: 2 puff Carvedilol (Carvedilol 6.25 Mg Tab) 6.25 mg PO BID-W/MEALS [facility] Last Admin: 03/28/24 17:37 Dose: 6.25 mg Clopidogrel Bisulfate (Clopidogrel 75 Mg Tab) 75 mg PO DAILY [facility] Last Admin: 03/28/24 08:29 Dose: 75 mg Dextrose/Water (Dextrose 50% Syringe 50 Ml) 50 ml IVP PER PROTOCOL PRN; Protocol PRN Reason: Hypoglycemia Dextrose/Water (Dextrose 50% Syringe 50 Ml) 25 ml IVP PER PROTOCOL PRN; Protocol PRN Reason: Hypoglycemia Enoxaparin Sodium (Enoxaparin 30 Mg/0.3 Ml Syringe) 30 mg SQ DAILY [facility] Last Admin: 03/28/24 08:29 Dose: 30 mg Insulin Aspart (Insulin Aspart (Novolog) 100 Unit/Ml Vial) 0 unit SQ ACHS [facility]; Protocol Last Admin: 03/28/24 17:38 Dose: 3 unit Insulin Aspart (Insulin Aspart (Novolog) 100 Unit/Ml Vial) 6 unit SQ AC-TID [facility] Last Admin: 03/28/24 17:37 Dose: 6 unit Insulin Detemir (Insulin Detemir (Levemir) 100 Unit/Ml Syr) 10 unit SQ DAILY@0700 [facility] Last Admin: 03/28/24 06:56 Dose: 10 unit Isosorbide Mononitrate (Isosorbide Mononitrate Er 60 Mg Tab.Er.24h) 60 mg PO DAILY [facility] Last Admin: 03/28/24 08:29 Dose: 60 mg Lactulose (Lactulose 20 Gm/30 Ml Cup) 10 gm PO TID PRN PRN Reason: Constipation Stop: 03/30/24 10:13 Magnesium Oxide (Magnesium Oxide 400 Mg Tab) 400 mg PO BID [facility] Last Admin: 03/28/24 08:29 Dose: 400 mg Miscellaneous Information (Magnesium Replacement Protocol 1 Each Misc) 1 each MISCELLANE DAILY PRN; Protocol PRN Reason: Per Protocol Naloxone HCl (Naloxone 0.4 Mg/Ml 1 Ml Vial) 0.2 mg IV Q2M PRN PRN Reason: Opioid Reversal Ondansetron HCl (Ondansetron 4 Mg/2 Ml Vial) 4 mg IVP Q8HR PRN PRN Reason: Nausea And Vomiting Last Admin: 03/28/24 12:17 Dose: 4 mg Pantoprazole Sodium (Pantoprazole 40 Mg Tablet) 40 mg PO AC-BRKFST [facility] Last Admin: 03/28/24 06:55 Dose: 40 mg Psyllium Hydrophilic Mucilloid (Psyllium Husk 100% 6 Gm Packet) 6 gm PO DAILY [facility] Last Admin: 03/28/24 08:30 Dose: Not Given Ranolazine (Ranolazine 500 Mg Tab.Er.12h) 1,000 mg PO Q12HR [facility] Last Admin: 03/28/24 08:29 Dose: 1,000 mg Sodium Bicarbonate (Sodium Bicarbonate Tab 650 Mg Tab) 650 mg PO DAILY [facility] Last Admin: 03/28/24 08:29 Dose: 650 mg Trazodone HCl (Trazodone Hcl 50 Mg Tab) 25 mg PO HS PRN PRN Reason: Insomnia Last Admin: 03/27/24 21:37 Dose: 25 mg On examination: VITAL SIGNS: 98.3, 79, 12, 1 3774, 95% 4 L. 83% room air GENERAL APPEARANCE: BMI 28.4, laying in bed, a bit tired HEENT: Normal external appearance of nose and ear. Oral cavity normal EYES: Pupils equal. Conjunctiva normal. NECK: JVD not raised. Mass not palpable. RESPIRATORY: Respiratory effort normal. Lungs clear to auscultation. CARDIOVASCULAR: First and second sounds normal. No edema. ABDOMEN: Soft. Liver and spleen not palpable. No tenderness. No mass palpable. PSYCHIATRY: Questionable very tired appearing .INVESTIGATIONS, reviewed in the clinical context: March 27: Potassium 5.3 BUN 44 creatinine 2.13 March 26: Potassium 5.4 BUN 48 creatinine 2.30 March 25: Potassium 5.2 BUN 53 creatinine 2.4 March 24: Sodium 139 potassium 4.8 BUN 53 creatinine 2.40 March 19: Creatinine 2.04 2D echo: EF 55 to 60% Renal ultrasound: No hydronephrosis. Multiple nonshadowing parenchyma calcifications. Assessment and plan -NSTEMI -Postinfarct angina after coronary intervention: Better Imdur. Ranexa for staged intervention per cardiology Acute on chronic kidney injury secondary to ATN from hemodynamic mismatch. Renal ultrasound showed no hydronephrosis. -Acute constipation from decreased activity Given lactulose today. Not having bowel movements. Also on Metamucil -Chronic kidney disease stage IIIb with baseline creatinine of 1.4-1.6 secondary to nephrosclerosis Hypomagnesemia Metabolic acidosis, due to acute kidney injury. Improved Received bicarbonate -CAD including 80% mid LAD, 99% proximal circumflex and 100% subtotally occluded RCA stenosis status post PCI to LAD in 01/12 Cardiology following -Chronic oxygen dependent COPD. on 2L prn outpatient.- Diabetes mellitus type 2, chronically on insulin Levemir. Follow Accu-Cheks Hypomagnesemia Follow labs -Hyperkalemia, in setting of CKD [facility]. Renal diet. -Essential hypertension , Coreg, Imdur -Hyperlipidemia Lipitor -COPD in previous smoker Symbicort. Ventolin HFA as needed -Hypoxia likely from underlying COPD. Chest x-ray -Disposition, patient keen to go home Full Code Patient unable to afford payment for the oxygen. foundry worker apprentice to look into the same. Chest x-ray.
[2024-03-29 06:11] LABS: Glucose,Whole Blood 158 mg/dL (70-110)
[2024-03-29 11:05] VITALS: TEMP 97.7
--- NOTE | 2024-03-29 11:11 | XR ---
EXAMINATION TYPE: XR chest 2V DATE OF EXAM: 03/29/2024 COMPARISON: 03/19/2024 INDICATION: Short of breath TECHNIQUE: Frontal and lateral views of the chest are obtained. FINDINGS: The heart size is normal. The pulmonary vasculature is normal. Bibasilar infiltrates are present. Correlate for subsegmental atelectasis or pneumonia. Follow-up be performed. IMPRESSION: 1. Mild bibasilar infiltrates. Correlate for atelectasis or pneumonia. [facility], , 03/29/2024 11:09 AM
[2024-03-29 11:32] LABS: Glucose,Whole Blood 109 mg/dL (70-110)
[2024-03-29 11:46] VITALS: BP 101/63; PULSE 78; RESP 18
--- NOTE | 2024-03-29 13:13 | P.PN ---
Subjective HISTORY OF PRESENT ILLNESS: Patient examined this morning the bedside. Patient currently denies chest pain or pressure. She denies shortness of breath. She is anticipating discharge today. Vital signs are stable. PHYSICAL EXAM: VITAL SIGNS: Reviewed. GENERAL: Well-developed in no acute distress. NECK: Supple. No JVD or thyromegaly LUNGS: Respirations even and unlabored. Lungs essentially clear to auscultation bilaterally. HEART: Regular rate and rhythm. S1 and S2 heard. EXTREMITIES: Normal range of motion. No clubbing or cyanosis. Peripheral pulses intact. 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 Signing provider agrees with the documented findings, assessment, and plan of care documented by T[employer] SERVICES MANAGER as a scribe. Objective - Vital Signs Vital signs: Vital Signs Temp 97.7 F 03/29/24 08:00 Pulse 78 03/29/24 11:46 Resp 18 03/29/24 11:45 BP 101/63 03/29/24 11:45 Pulse Ox 87 L 03/29/24 11:46 FiO2 Intake & Output 03/28/24 03/29/24 03/29/24 18:59 06:59 18:59 Intake Total 118 Output Total 400 100 Balance 118 -400 -100 Weight 74.5 kg Intake: Oral 118 Output: Urine 400 100 Other: Voiding Method Toilet Toilet Toilet # Voids 3 - Labs CBC & Chem 7: 03/22/24 06:03 03/28/24 07:36 Labs: Abnormal Lab Results - Last 24 Hours (Table) 03/28/24 03/29/24 Range/Units 16:40 05:50 POC Glucose (mg/dL) 176 H 158 H (70-110) mg/dL
--- NOTE | 2024-03-29 19:48 | P.PN ---
Subjective Patient is seen for follow-up for acute kidney injury and volume overload. History of underlying chronic kidney disease stage IIIb with previous creatinine around 1.4 to 1.6 mg/dL in December and January 2024. No significant complaints today. Serum creatinine stable at 2.1 from yesterday Objective - Vital Signs Vital signs: Vital Signs Temp 97.7 F 03/29/24 08:00 Pulse 78 03/29/24 11:46 Resp 18 03/29/24 11:45 BP 101/63 03/29/24 11:45 Pulse Ox 87 L 03/29/24 11:46 FiO2 Intake & Output 03/29/24 03/29/24 03/30/24 06:59 18:59 06:59 Output Total 400 100 Balance -400 -100 Weight 74.5 kg Output: Urine 400 100 Other: Voiding Method Toilet Toilet # Voids 3 - Exam Patient is awake, comfortable No acute distress Examination of the heart S1 and S2 Examination of the lungs bilateral breath sounds are heard Abdomen is soft nontender Examination of lower extremities shows no significant edema DIRECTOR PRODUCT MANAGEMENT exam shows patient is moving all 4 extremities. - Labs CBC & Chem 7: 03/22/24 06:03 03/28/24 07:36 Labs: Abnormal Lab Results - Last 24 Hours (Table) 03/29/24 Range/Units 05:50 POC Glucose (mg/dL) 158 H (70-110) mg/dL Assessment and Plan Assessment: 1. Acute kidney injury secondary to hypotension, nonoliguric ATN. UA shows no hematuria or proteinuria. Started on low-dose PETER inhibitors and Farxiga at this admission but eventually stopped due to low blood pressure. 2. Chronic kidney disease and Stage IIIb with baseline creatinine around 1.6- 1.4 mg/dL. 3. Non-ST elevation MO 4. Coronary artery disease with patient not being a candidate for CABG due to low FEV1 5. Advanced COPD 6. Hypertension with CKD stage IIIb Plan: Follow-up as outpatient for acute kidney injury. Consider restarting low-dose PETER inhibitor's or Farxiga as outpatient based on renal function.
--- NOTE | 2024-03-29 21:48 | P.DS ---
Providers Date of admission: 03/19/24 17:52 Expected date of discharge: 03/29/24 Attending physician: Rodney Mcghee Consults: 03/19/24 17:50 Consult Physician Urgent Consulting Provider: [facility] Consult Reason/Comments: acute chest pain, nstemi Do you want consulting provider notified?: Yes 03/20/24 09:05 Consult Physician Routine Consulting Provider: Sigrid Florian Consult Reason/Comments: Acute on chronic kidney disease Do you want consulting provider notified?: Yes Primary care physician: [facility] Course: patient is a 73-year-old lady with past medical history significant for hypertension, hyperlipidemia, diabetes mellitus type 2, carotid artery disease, chronic kidney disease, coronary disease who presented to the ER because of ches t pain. Patient was seen in January of this year with similar complaints at which time patient had cardiac cath showing triple-vessel coronary artery disease patient was evaluated for CABG but later surgery decided that she should undergo PCI, patient underwent PCI to LAD in 01/12. Patient stated ever since her discharge she has been having on and off chest pain. Patient stated that she stopped taking her cholesterol medications for the last few weeks. Patient all right yesterday morning when she woke up with severe chest pain that was central location, nonradiating, no aggravating or relieving factors of the chest pain, denies any shortness of breath. Patient was complaining of nausea. There was no complaint palpitations. Because of the chest pain, patient went to her primary care doctor's office who told her to come to the ER. Initial lab work done in the ER showed WBC expanded, hemoglobin 13.3, platelet count 287, INR 0.9, sodium 143, potassium 4.1, BUN 39, creatinine 2.04 calcium 9.7, magnesium 1.3, troponin 0.152 EKG done in the ER showed heart rate of 76,, no ST segment elevation or depression seen, no T-wave inversions seen. Chest x-ray done in the ER showed cardiomegaly and mild pulmonary vascular congestion Patient admitted to internal medicine service 03/21. Patient seen and examined. Blood work this morning showed WBC 6.7, hemoglobin 8, platelet count 259, sodium 140, potassium 4.6, BUN 52, creatinine 2.29, glucose 171. Denies any chest pain. States she feels much better. 03/22/2024 Patient is evaluated today in follow up. Patient currently denies chest pain. Remains on IV heparin. Continues on oxygen via nasal cannula 2L. Potassium 5.0, BUN 55, creatinine 2.23. Blood glucose in the 300s. 03/23/2024 Patient is resting in bed today with no complaints of chest pain at this time however did have an episode of chest pressure overnight requiring nitro drip which has been turned off. Cardiology has adjusted medications further today patient continues on a combination of amlodipine, carvedilol, aspirin Plavix, Imdur, lisinopril and Ranexa. Patient states that she has not been able to sleep was on Seroquel in the past currently does not want it would recommend to give the trazadone at HS. She does complain of weakness in her bilateral extremities upper and lower since being started on the Lipitor back in January, which is why she had stopped taking it. Sodium 142, potassium 4.8, BUN of 52, creatinine of 2.24, magnesium 1.5. March 24, 2024: Laying in bed. Brother very tired. Blood pressure running low around 90 systolic. On 4 L nasal cannula. Sinus rhythm. Getting intermittent chest pain. Eating fair. Per cardiology for staged intervention. March 25: No further chest pain. Medications were further adjusted by cardiology. Did sit up in the chair for couple of hours. Patient does not want to go to rehab. Discussed with housing case manager. Given hyperkalemia in setting of kidney injury, will hold off PETER inhibitor for now. Eating some March 26: Patient doing much better today. Did walk in the hallway. No further chest pain. at the bedside. Seen by cardiology. Farxiga lisinopril amlodipine have all been discontinued because of blood pressure on the lower side.. Probably home tomorrow. For elevated pressure at potassium given 1 dose of Lokelma and renal diet per nephrology March 27: This morning patient just feeling tired some nausea. Not had a bowel movement. Was given lactulose. Later she started having bowel movements. Discharge been held for that purpose. No further intervention per cardiology. March 28: Tired. Does not want to go to rehab. Patient was desaturating down to 86%. Hence home oxygen was being arranged. Patient unable to afford the payment for the first month. Social work involved for the same. Encouraged to eat sit up in a chair. Order chest x-ray March 29: Home oxygen was arranged. Patient doing better. Will follow-up with cardiology. No sputum production no fever. Clinically not felt to be pneumonia lung infection [chest x-ray some infiltrates] Discussion and discharge planning more than 35 minutes On examination: VITAL SIGNS: 97.7, 78, 18, 101 x 63, 87% room air GENERAL APPEARANCE: Resting in bed HEENT: Normal external appearance of nose and ear. Oral cavity normal EYES: Pupils equal. Conjunctiva normal. NECK: JVD not raised. Mass not palpable. RESPIRATORY: Respiratory effort normal. Lungs clear to auscultation. CARDIOVASCULAR: First and second sounds normal. No edema. ABDOMEN: Soft. Liver and spleen not palpable. No tenderness. No mass palpable. PSYCHIATRY: Questionable very tired appearing .INVESTIGATIONS, reviewed in the clinical context: March 27: Potassium 5.3 BUN 44 creatinine 2.13 March 24: Sodium 139 potassium 4.8 BUN 53 creatinine 2.40 March 19: Creatinine 2.04 2D echo: EF 55 to 60% Renal ultrasound: No hydronephrosis. Multiple nonshadowing parenchyma calcifications. Assessment and plan -NSTEMI -Postinfarct angina after coronary intervention: Better Imdur. Ranexa for staged intervention per cardiology Acute on chronic kidney injury secondary to ATN from hemodynamic mismatch. Renal ultrasound showed no hydronephrosis. -Acute constipation from decreased activity Given lactulose today. Not having bowel movements. Also on Metamucil -Chronic kidney disease stage IIIb with baseline creatinine of 1.4-1.6 secondary to nephrosclerosis Hypomagnesemia Metabolic acidosis, due to acute kidney injury. Improved Received bicarbonate -CAD including 80% mid LAD, 99% proximal circumflex and 100% subtotally occluded RCA stenosis status post PCI to LAD in 01/12 Cardiology following -Chronic oxygen dependent COPD. on 2L prn outpatient.- Diabetes mellitus type 2, chronically on insulin Levemir. Follow Accu-Cheks Hypomagnesemia Follow labs -Hyperkalemia, in setting of CKD Lokelma. Renal diet. -Essential hypertension , Coreg, Imdur -Hyperlipidemia Lipitor -COPD in previous smoker Symbicort. Ventolin HFA as needed -Hypoxia likely from underlying COPD. Discharged on home oxygen. 87% room air Full Code Disposition: Home Plan - Discharge Summary Discharge Rx Participant: No New Discharge Prescriptions: New Magnesium Oxide [Mag-Ox] 400 mg PO BID #30 tab Psyllium Husk 100% [Metamucil Packet] 6 gm PO DAILY packet Sodium Bicarbonate Tab 650 mg PO DAILY #30 tab carvediloL [Coreg] 6.25 mg PO BID-W/MEALS #60 tab Isosorbide Mononitrate ER [Imdur] 15 mg PO DAILY #15 tab Ranolazine [Ranexa] 1,000 mg PO Q12HR #60 tab Continue Fluticasone Propion/Salmeterol [Wixela 250-50 Inhub] 1 puff INHALATION RT-BID Aspirin 81 mg PO DAILY 30 Days #30 tab Albuterol Inhaler [Ventolin Hfa Inhaler] 2 puff INHALATION RT-Q4H PRN PRN Reason: Dyspnea Atorvastatin [Lipitor] 40 mg PO DAILY #30 tab Clopidogrel [Plavix] 75 mg PO DAILY #30 tab Ezetimibe [Zetia] 10 mg PO DAILY #30 tab Changed Insulin Aspart [NovoLOG Flexpen] 6 units SQ AC-TID #0 Discontinued carvediloL [Coreg*] 12.5 mg PO BID-W/MEALS #60 tab Docusate [Colace] 100 mg PO DAILY PRN 5 Days #10 cap PRN Reason: Constipation Isosorbide Mononitrate ER [Imdur] 30 mg PO DAILY #30 tab amLODIPine [Norvasc] 2.5 mg PO DAILY #30 tab Discharge Medication List Albuterol Inhaler [Ventolin Hfa Inhaler] 2 puff INHALATION RT-Q4H PRN 03/12/21 [History] Fluticasone Propion/Salmeterol [Wixela 250-50 Inhub] 1 puff INHALATION RT-BID 01/09/24 [History] Aspirin 81 mg PO DAILY 30 Days #30 tab 01/14/24 [Rx] Atorvastatin [Lipitor] 40 mg PO DAILY #30 tab 01/14/24 [Rx] Clopidogrel [Plavix] 75 mg PO DAILY #30 tab 01/14/24 [Rx] Ezetimibe [Zetia] 10 mg PO DAILY #30 tab 01/14/24 [Rx] Insulin Aspart [NovoLOG Flexpen] 6 units SQ AC-TID #0 03/28/24 [Rx] Isosorbide Mononitrate ER [Imdur] 15 mg PO DAILY #15 tab 03/28/24 [Rx] Magnesium Oxide [Mag-Ox] 400 mg PO BID #30 tab 03/28/24 [Rx] Psyllium Husk 100% [Metamucil Packet] 6 gm PO DAILY packet 03/28/24 [Rx] Ranolazine [Ranexa] 1,000 mg PO Q12HR #60 tab 03/28/24 [Rx] Sodium Bicarbonate Tab 650 mg PO DAILY #30 tab 03/28/24 [Rx] carvediloL [Coreg] 6.25 mg PO BID-W/MEALS #60 tab 03/28/24 [Rx] Follow up Appointment(s)/Referral(s): Guzman Hahn DO [STAFF PHYSICIAN] - 04/05/24 4:00 pm Jai Carrillo MD [Primary Care Provider] - 1-2 days (office will call you with appointment date and time) [facility] Visiting Nurse, [NON-STAFF] - As Needed (Agency will call to make an appointment 24 to 48 hours after discharge.) Patient Instructions/Handouts: Chest Pain (DC) Discharge Disposition: HOME WITH HOME HEALTH SERVICES
== END 2024-03-29 16:20 | disposition home health service (06) | DRG 280 ==
LOC: EC 14:44 → 3SCARD 17:52
PROVIDERS: ADMIT Hospitalist; ATTEND Hospitalist
DX: I21.4 Non-ST elevation (NSTEMI) myocardial infarction (principal); I50.33 Acute on chronic diastolic (congestive) heart failure; N17.0 Acute kidney failure with tubular necrosis; I13.0 Hypertensive heart and chronic kidney disease with heart failure and stage 1 through stage 4 chronic kidney disease, or unspecified chronic kidney disease; J96.11 Chronic respiratory failure with hypoxia; I23.7 Postinfarction angina; E11.22 Type 2 diabetes mellitus with diabetic chronic kidney disease; E11.51 Type 2 diabetes mellitus with diabetic peripheral angiopathy without gangrene; N18.32 Chronic kidney disease, stage 3b; I48.91 Unspecified atrial fibrillation; Z79.4 Long term (current) use of insulin; Z99.81 Dependence on supplemental oxygen; I95.9 Hypotension, unspecified; E87.5 Hyperkalemia; I25.10 Atherosclerotic heart disease of native coronary artery without angina pectoris; K21.9 Gastro-esophageal reflux disease without esophagitis; K59.00 Constipation, unspecified; M25.551 Pain in right hip; E78.5 Hyperlipidemia, unspecified; E83.42 Hypomagnesemia; Z79.02 Long term (current) use of antithrombotics/antiplatelets; Z79.82 Long term (current) use of aspirin; Z79.51 Long term (current) use of inhaled steroids; Z87.891 Personal history of nicotine dependence; I25.2 Old myocardial infarction; Z86.73 Personal history of transient ischemic attack (TIA), and cerebral infarction without residual deficits; Z82.49 Family history of ischemic heart disease and other diseases of the circulatory system; Z86.16 Personal history of COVID-19; Z86.711 Personal history of pulmonary embolism; Z79.899 Other long term (current) drug therapy; Z91.040 Latex allergy status
CPT/HCPCS: 36415; 71046; 73502; 76770; 80048; 80053; 81001; 82550; 83036; 83735; 83880; 84484; 85025; 85610; 85730; 93005; 93308; 94640; 94760; 96365; 96366; 96368; 96375; 96376; 99291